=== PATIENT | female | born 1935 | race Caucasian/White ===

== ENCOUNTER → 2017-12-25 14:50 | Outpatient (CLI) | payer MEDICARE, OTHER, SELFPAY ==
[2017-12-25 16:26] LABS: Absolute Lymphocyte Count 1.34 X10^3/ul (0.83-4.51); Absolute Neutrophil Count 3.5 X10^3/uL (2.0-7.7); Basophil# 0.03 X10^3/uL; Basophil% 0.5 % (0-1); Eosinophil# 0.15 X10^3/uL; Eosinophils% 2.7 % (0-5); Hematocrit 43.5 % (37-47); Hemoglobin 14.4 g/dl (12.0-15.0); Lymphocyte # 1.34 X10^3/ul (4.0); Lymphocyte % 23.7 % (19-41); Mean Corp Hgb Conc 33.1 g/gl (32-36); Mean Corpuscular Hgb 32.2 pg (27.0-32.0); Mean Corpuscular Volume 97.3 fL (81-99); Mean Platelet Vol. 9.8 fl (6.2-12.0); Monocyte# 0.66 X10^3/uL; Monocyte% 11.7 % (0-10); Neutrophil # 3.46 X10^3/uL (2.7-7.7); Platelet Count 387 K/mm3 (150-450); RBC Distribution Width CV 14.5 % (11.6-14.6); RBC Distribution Width SD 50.3 fl (35.1-43.9); Red Blood Count 4.47 M/mm3 (4.2-5.4); White Blood Count 5.7 K/mm3 (4.4-11.0)
[2017-12-25 16:27] LABS: POSITIVE COUNT NO; POSITIVE DIFFERENTIAL NO; POSITIVE MORPHOLOGY NO
[2017-12-26 10:20] LABS: Vitamin D,25 Hydroxy 76.6 ng/mL (29.95-100.01)
== END ==
PROVIDERS: Visit Provider Family Medicine Geriatric Medicine
DX: Z00.00 Encounter for general adult medical examination without abnormal findings (principal); I10 Essential (primary) hypertension; E55.9 Vitamin D deficiency, unspecified
CPT/HCPCS: 36415; 80053; 82306; 84443; 85025

== ENCOUNTER 2018-02-06 10:00 | Outpatient (RCR) | payer MEDICARE, OTHER, SELFPAY ==
--- NOTE | 2018-01-09 10:09 | HP.PTEVAL_ITS ---
Patient's Visit Information LEW HUDSON is a 82 year old F referred to Physical Therapy by Suleiman Alfaro with a diagnosis of Myalgia. Date of Evaluation: 01/09/18 Physical Therapist: Zeke Gabriel, PT, - Visit Plan Frequency: 2x /Week Duration: 4-6 Weeks Plan: B UE strengthening (rot cuff), scap stab ex's, overhead pulleys, UBE, HEP , US - Subjective Subjective: Pt reports she has had B UE pain for several years. Pt reports she was taking Lipitor for a month back then when she began to experience this pain. Pt reports she stopped taking the medications, but the pain never went away. Pt reports the pain has become progressively worse over the past few months. Pt is not sure what she would have palacios to make the pain worse. Pt reports she has sig difficulty with trying to lift her arms over her head. Difficulty with doing her hair as well. Pain on the lateral upper humerus is always present, but she does get occasional pain shooting down her arms which is intermittent. Pt reports minor c/s pain this date. Only Ibuprophen helps to take away her pain. 3/10 pain at rest, 7/10 at worst. Pain is bad at night when she is trying to sleep. Pt reports she has to sleep in a chair. - Pain B arm pain Pain Intensity (Out of 10): 3 Pain Intensity Range: 7 - Objective Neuro: B UE sensation is WNL to light touch. B bicepital reflex= 2/3. Palpation : Pt is mostly sore on the ant aspect of B shoulders near the upper portion of the biceps muscle. ROM: R shoulder flex= 108, abd= 85, ER= 35, IR mod limited ; L shoulder flex= 130, abd= 85, ER= 30, IR Mod limited. MMT: B shoulders are grossly 4-/5 throughout in available range of motion. - Goals Goal 1:: Decrease B UE pain x 25% to aid with sleep Goal Time Frame: 4-6 Weeks Goal 2:: Increase B UE flex and abd ROM x 30 degrees to aid with overhead activity Goal Time Frame: 4-6 Weeks Goal 3:: Increase B UE strength x 1 grade to aid with IADL's Goal Time Frame: 4-6 Weeks Goal 4:: I with HEP Goal Time Frame: 4-6 Weeks - Rehabilitation Potential Physical Therapy Diagnosis: Pt has B UE pain, weakness, and limited ROM secondary to deg changes in B shoulders Rehabilitation Potential: Good - Anticipated Interventions Patient/Client Instruction: Educate patient on: Condition, Plan of Care For the Purpose of:: To decrease pain, To increase ROM, To improve muscle performance and motor function Therapeutic Exercise to Include: Strength training, Endurance training, Active ROM, Scapular Strength/Stabilization For the Purpose of:: To decrease pain, To increase ROM, To improve muscle performance and motor function Cryotherapy (ice pack, ice massage): Yes Ultrasound (thermal/non thermal): Yes For the Purpose of:: To decrease pain Thank you for the opportunity to evaluate your patient. For Medicare and Medicare HMO plans, please review the plan of care and approve it. It will need to be FAXED BACK to us at [phone] for Medicare purposes. Please let me know if there are questions or concerns regarding this plan of care. Physician Signature: Date:
--- NOTE | 2018-02-06 10:56 | HP.PTDCSUM ---
HP - PT D/C Summary It has been my pleasure to treat LEW HUDSON under orders from Suleiman Alfaor, for the diagnosis of Myalgia for a total of 9 visit(s). Discharge Date: Please see the following information for a summary of their discharge status. - Subjective Subjective: Pain is less today - Pain B arm pain Pain Intensity (Out of 10): 0 - Overall Improvement % Improvement: 25 - Objective Objective/Function: B shoulder pain ranges from 0-5/10. No sleep diff secondary to pain. ROM: L shoulder flex= 135, abd= 83; R shoulder flex= 105, abd= 82 degrees. MMT: B UE's are grossly 4+/5 throughout in available range. Pt is I with HEP. Rx goals achieved - Goals Goal 1:: Decrease B UE pain x 25% to aid with sleep Goal Progress: Goal Met Goal 2:: Increase B UE flex and abd ROM x 30 degrees to aid with overhead activity Goal Progress: Goal Met Goal 3:: Increase B UE strength x 1 grade to aid with IADL's Goal Progress: Goal Met Goal 4:: I with HEP Goal Progress: Goal Met - Plan Plan: Discharge to HEP - D/C Information If there are questions or concerns regarding this patient's physical therapy, please feel free to call me at [phone]. Thank you for the referral of this patient. Sincerely, Zeke Gabriel, PT,
--- NOTE | 2018-02-06 10:59 | HP.PTDCSUM_ITS ---
HP - PT D/C Summary It has been my pleasure to treat LEW HUDSON under orders from Suleiman Alfaro , for the diagnosis of Myalgia for a total of 9 visit(s). Discharge Date: Please see the following information for a summary of their discharge status. - Subjective Subjective: Pain is less today - Pain B arm pain Pain Intensity (Out of 10): 0 - Overall Improvement % Improvement: 25 - Objective Objective/Function: B shoulder pain ranges from 0-5/10. No sleep diff secondary to pain. ROM: L shoulder flex= 135, abd= 83; R shoulder flex= 105, abd= 82 degrees. MMT: B UE's are grossly 4+/5 throughout in available range. Pt is I with HEP. Rx goals achieved - Goals Goal 1:: Decrease B UE pain x 25% to aid with sleep Goal Progress: Goal Met Goal 2:: Increase B UE flex and abd ROM x 30 degrees to aid with overhead activity Goal Progress: Goal Met Goal 3:: Increase B UE strength x 1 grade to aid with IADL's Goal Progress: Goal Met Goal 4:: I with HEP Goal Progress: Goal Met - Plan Plan: Discharge to HEP - D/C Information If there are questions or concerns regarding this patient's physical therapy, please feel free to call me at [phone]. Thank you for the referral of this patient. Sincerely, Zeke Gabriel, PT,
== END 2018-02-06 12:25 | disposition home or self-care (01) ==
LOC: PT 10:00
PROVIDERS: Family Provider Family Medicine; PCP Family Medicine; Visit Provider Family Medicine
DX: M79.1 Myalgia (principal)
CPT/HCPCS: 97035; 97110; 97162; 97530

== ENCOUNTER → 2018-02-28 11:11 | Outpatient (CLI) | payer MEDICARE, OTHER, SELFPAY ==
[2018-02-28 12:49] LABS: BNP,B-Type NATRIURETIC PEPTIDE 46.5 pg/mL (0-100)
== END ==
PROVIDERS: Family Provider Family Medicine; PCP Family Medicine; Visit Provider Internal Medicine Cardiovascular Disease
DX: R06.02 Shortness of breath (principal)
CPT/HCPCS: 36415; 83880

== ENCOUNTER 2018-04-20 18:03 | Emergency (ER) | payer MEDICARE, OTHER, SELFPAY ==
[2018-04-20 18:04] VITALS: BP 155/79; PULSE 71; RESP 16; TEMP 36.6; O2SAT 99; BMI 25.8
[2018-04-20 18:12] VITALS: PULSE 80; RESP 17; O2SAT 100
--- NOTE | 2018-04-20 18:30 | EKG12_ITS ---
Test Reason : CP Blood Pressure : / mmHG Vent. Rate : 075 BPM Atrial Rate : 075 BPM P-R Int : 138 ms QRS Dur : 088 ms QT Int : 352 ms P-R-T Axes : 062 014 068 degrees QTc Int : 393 ms Normal sinus rhythm Nonspecific ST and T wave abnormality Abnormal ECG Confirmed by ALEX SAUCEDO, IND[place] ([id number]), features editor WILLOW RED ([id number]) on 04/23/2018 11:18:02 AM Referred By: Confirmed By:INDIA JOHNSON MD
--- NOTE | 2018-04-20 18:31 | RAD_ITS ---
STUDY: X-RAY CHEST REASON FOR EXAM: Female, 82 years old. Intermittent heartburn. TECHNIQUE: Frontal and lateral views of the chest. COMPARISON: None. FINDINGS: The lungs are hyperexpanded. There is no demonstrated pleural abnormality. There is borderline cardiomegaly. Normal mediastinum and roni. Normal visualized pulmonary arteries. Normal visualized aortic arch and descending thoracic aorta. There are diffuse degenerative changes of the visualized thoracic spine. 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 There is no demonstrated abnormality of the visualized soft tissue structures of the upper abdomen. RAD/Chest PA and Lateral IMPRESSION: Borderline cardiomegaly with hyperexpansion. No acute abnormality. Electronically Signed: Tu Montana MD at 19:53 EDT , Service support ,
[2018-04-20 18:59] LABS: Absolute Lymphocyte Count 1.09 X10^3/ul (0.83-4.51); Absolute Neutrophil Count 3.5 X10^3/uL (2.0-7.7); Basophil# 0.02 X10^3/uL; Basophil% 0.4 % (0-1); Eosinophil# 0.18 X10^3/uL; Eosinophils% 3.3 % (0-5); Hematocrit 40.9 % (37-47); Hemoglobin 13.6 g/dl (12.0-15.0); Lymphocyte # 1.09 X10^3/ul (4.0); Mean Corp Hgb Conc 33.3 g/gl (32-36); Mean Corpuscular Hgb 32.4 pg (27.0-32.0); Mean Corpuscular Volume 97.4 fL (81-99); Mean Platelet Vol. 9.2 fl (6.2-12.0); Monocyte# 0.63 X10^3/uL; Monocyte% 11.6 % (0-10); Neutrophil # 3.52 X10^3/uL (2.7-7.7); Neutrophil % 64.5 % (47-70); Platelet Count 427 K/mm3 (150-450); RBC Distribution Width CV 14.5 % (11.6-14.6); RBC Distribution Width SD 49.9 fl (35.1-43.9); White Blood Count 5.5 K/mm3 (4.4-11.0)
[2018-04-20 19:01] LABS: POSITIVE COUNT NO; POSITIVE DIFFERENTIAL NO; POSITIVE MORPHOLOGY NO
[2018-04-20 19:13] LABS: Anion Gap 7 (5-15); BUN 14 mg/dL (7-18); BUN/Creat Ratio 24.1 RATIO (10-20); Calcium,Total 9.2 mg/dL (8.5-10.1); Chloride 105 mmol/L (98-107); Creatinine, Serum 0.58 mg/dL (0.55-1.02); EST Glomerular Filtration Rate 105 mL/min (>60); Est Glom Filt Rate - Afr Amer 127 mL/min (>60); Estimated Creatinine Clearance 35.88 ml/min; Glucose 114 mg/dL (74-106); Sodium Level 138 mmol/L (136-145)
--- NOTE | 2018-04-20 20:32 | ED.DCSUM_ITS ---
- ER Visit Summary Date of Service: 04/20/18 Chief Complaint: Heartburn History of Present Illness: The patient is a 82 F who presents with heartburn. She does have a history of a hiatal hernia. She has had prior similar symptoms. She is to be on a proton pump inhibitor but was told due to side effects to discontinue this. Over the last month she has been having intermittent heartburn. She describes a burning sensation in her lower chest. This is relieved with eating, Tums, or Zantac. However today was worse. She states she had seen a flyer about women and chest pain and became somewhat concerned so presented here. However her symptoms have actually since resolved and currently she has no pain. She reports nausea but no vomiting. No difficulty breathing or sweats. Physical Examination: Afebrile vitals unremarkable Moist mucous membranes Heart regular rate and rhythm Lungs are clear Abdomen soft Alert Normal affect Test Results: EKG shows normal sinus rhythm at a rate of 75. CBC BMP troponin all normal. Chest x-ray shows borderline cardiomegaly. Emergency Department Course and Treatment: Patient's workup is unremarkable. I do believe this is most likely related to her hiatal hernia and gastroesophageal reflux. We will start her on Prilosec. She was advised to follow-up with her primary care physician. She understands to return for new or worsening symptoms. She was discharged. Treatment Plan: [] Disposition: Discharge Impression: Gastroesophageal reflux This note was generated with [employer] dictation software. It may contain incorrect words, spelling, and punctuation that were not noted in review of the chart prior to signing ED Disposition - Plan for ED Patient: Chief Complaint: Abd Pain Referrals: Nathan Vanegas DO [Primary Care Provider] -
--- NOTE | 2018-04-20 20:32 | ED.DEP ---
ED Disposition - Plan for ED Patient: Chief Complaint: Abd Pain Instructions: ED GERD Prescriptions: Omeprazole [Prilosec] 20 mg PO DAILY #30 cap Referrals: Nathan Vanegas DO [Primary Care Provider] -
[2018-04-20 20:48] VITALS: BP 122/75; PULSE 74; RESP 17; O2SAT 98
--- NOTE | 2018-04-20 20:49 | ED.RN ---
pt given written and verbal discharge instructions and verbalizes understanding. pt denies any further questions. pt to follow up dr. cruz. iv d/c and covered with 2x2 gauze and paper tape. pt dresses self and ambulates out of dept with spouse.
== END 2018-04-20 20:53 | disposition home or self-care (01) ==
PROVIDERS: Emergency Provider Emergency Medicine; Family Provider Family Medicine; PCP Family Medicine
DX: K21.9 Gastro-esophageal reflux disease without esophagitis (principal); K44.9 Diaphragmatic hernia without obstruction or gangrene; M81.0 Age-related osteoporosis without current pathological fracture; Z79.899 Other long term (current) drug therapy
CPT/HCPCS: 71046; 80048; 84484; 85025; 93005; 99284; A4216

== ENCOUNTER → 2018-07-18 16:01 | Outpatient (CLI) | payer MEDICARE, OTHER, SELFPAY ==
--- NOTE | 2018-07-18 16:24 | VDLE_ITS ---
Reason For Study: LEG PAIN RIGHT LEFT CFV is compressible, spontaneous, phasic, GSV is normal. competent and demonstrates normal CFV is compressible, spontaneous, phasic, augmentation. competent, and demonstrates normal Procedure augmentation. Exam performed in department. FV is compressible, spontaneous, phasic, A preliminary report was called and/or faxed competent and demonstrates normal to Dr. Ibarra. augmentation. POP V is compressible, spontaneous, phasic, competent and demonstrates normal augmentation. T/P Trunk is compressible. PTV is compressible. LT PerV is compressible. Interpretation Summary Deep veins of the left lower extremity are patent and compressible segmentally. There is no evidence of left lower extremity deep vein thrombosis. Valvular competence appears intact within the proximal deep venous system on the left . The left greater saphenous vein appears patent and compressible segmentally. Ordering Physician: RENEE IBARRA Referring Physician: Nathan Vanegas Performed By: Melissa Arango RVT
--- OUTSIDE RECORDS SUMMARY | 2018-09-22 11:34 | XMS RPT_ITS ---
:1935 Author Organization OHIP Support Name Relationship Address Phone REINALDO HUDSON Unavailable [address] + [place] [address] R Unavailable Unavailable Unavailable KICK, REINALDO Unavailable [address] + [place] [address] R Unavailable Unavailable Unavailable KICK, REINALDO Unavailable Unavailable + KIVIOLETA REINALDO Unavailable Unavailable + KIVIOLETA REINALDO Unavailable [address] + [place] [address] KICK, REINALDO Unavailable [address] + [place] [address] KICK, REINALDO Unavailable [address] + [place] [address] R Unavailable Unavailable Unavailable KICK, REINALDO Unavailable [address] + [place] [address] R Unavailable Unavailable Unavailable KICK, REINALDO Unavailable [address] + [place] [address] R Unavailable Unavailable Unavailable KICK, REINALDO Unavailable [address] + [place] [address] R Unavailable Unavailable Unavailable KICK, REINALDO Unavailable [address] + [place] [address] R Unavailable Unavailable Unavailable KICK, REINALDO Unavailable [address] + [place] [address] R Unavailable Unavailable Unavailable KICK, REINALDO Unavailable [address] + [place] [address] KICK, REINALDO Unavailable [address] + [place] [address] KICK, REINALDO Unavailable [address] + [place] [address] R Unavailable Unavailable Unavailable KICK, REINALDO Unavailable [address] + [place] [address] KICK, REINALDO Unavailable [address] + [place] [address] KICK, REINALDO Unavailable [address] + [place] [address] KICK, REINALDO Unavailable [address] + [place] [address] KICK, REINALDO Unavailable [address] + [place] [address] KICK, REINALDO Unavailable [address] + [place] [address] KICK, REINALDO Unavailable [address] + [place] [address] KICK, REINALOD Unavailable [address] + [place] [address] KICK, REINALDO Unavailable [address] + [place] [address] KICK, REINALDO Unavailable [address] + [place] [address] Care Team Providers Name Role Phone BRODERICK COSTA CNPANNE Attending Unavailable MADAI BONDS MD Primary Care Unavailable MADAI BONDS MD Attending Unavailable MADAI BONDS MD Primary Care Unavailable MADAI BONDS MD Attending Unavailable MADAI BONDS MD Primary Care Unavailable MADAI BONDS MD Attending Unavailable MADAI BONDS MD Primary Care Unavailable MADAI BONDS MD Attending Unavailable MADAI BONDS MD Primary Care Unavailable MADAI BONDS MD Attending Unavailable MADAI BONDS MD Primary Care Unavailable DR. CODY VANEGAS DO Attending Unavailable DR. CODY VANEGAS DO Primary Care Unavailable MARITZA MACIAS Referring Unavailable MARITZA MACIAS Attending Unavailable COLLEEN, LAPMAN Referring Unavailable COLLEEN, CORRINEMAN Referring Unavailable COLLEEN, CORRINEMAN Referring Unavailable COLLEEN, MARITZA Referring Unavailable SURJIT ROBERTS Referring Unavailable RENEE IBARRA Attending Unavailable RENEE IBARRA Referring Unavailable Cody Vanegas Primary Care Unavailable Jose Carlos Jacobs Chi Attending Unavailable Madai Bonds Attending Unavailable Madai Bonds Referring Unavailable Madai Bonds Primary Care Unavailable Rach Rome Attending Unavailable Osvaldo Fischer Attending Unavailable Madai Bonds Referring Unavailable Osvaldo Fischer Attending Unavailable Madai Bonds Referring Unavailable Madai Bonds Primary Care Unavailable Amado, [place] Attending Unavailable Amado, Osvaldo Referring Unavailable Guilherme, Cody Primary Care Unavailable Guilherme, Cody Primary Care Unavailable Chris Matute Attending Unavailable FRED, RENEE Attending Unavailable FRED, RENEE Referring Unavailable Guilherme, Cody Primary Care Unavailable Fred, Renee L Attending Unavailable Fred, Renee L Attending Unavailable PROBLEMS PROBLEMS DATE TYPE CONDITION / CODE ATTENDING STATUS SOURCE 06/19/2018 Admitting Unknown / Fred, Active [facility] Medical diagnosis UNK(Unknown) Renee Funes [facility] Repository 02/27/2018 Unknown I31.3 - Pericardial Amado, Osvaldo Active [facility] effusion [facility] (noninflammatory) / Hospital I31.3(ICD-10) Repository 02/27/2018 Unknown 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[place], [place]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 / Hospital I36.1(ICD-10) Repository 02/27/2018 Unknown E78.5 - Amado, Osvaldo Active [facility] Hyperlipidemia, Community unspecified / Hospital E78.5(ICD-10) Repository 02/27/2018 Unknown 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 No need to notify patient. Patient phones requesting refills as follows: Pending Prescriptions Disp Refills HYDROXYUREA 500 MG CAPSULE 30 capsule 2 Sig: Take 1 capsule by mouth every 48 hours. YADIRA: No Please review and advise. Alice Zarate Psr Maritza Macias MD 07/22/2018 10:05 AM Signed Patient's request for medication is as follows Signed Prescriptions Disp Refills hydroxyurea (HYDREA) 500 mg capsule 30 capsule 2 Sig: Take 1 capsule by mouth every 48 hours. YADIRA: No Authorizing Provider: MARITZA MACIAS Order entered - please phone pharmacy and notify patient. Maritza Macias MD Allergies As of Date: 07/22/2018 Noted Allergy Reaction CIPROFLOXACIN 08/29/2010 2 - Rash Comments: Itching and rash AMOXICILLIN 07/07/2008 8 - GI Upset BIAXIN (CLARITHROMYCIN) 06/07/2009 8 - GI Upset SODIUM PENTATHAL (THIOPENTAL) 08/29/2010 8 - GI Upset Comments: Heavy vomiting Date Reviewed: 09/05/2017 Reviewed by: Shira Calles - Fully Assessed Reason for Visit: Refill Request [94] Order(s):hydroxyurea (HYDREA) 500 mg capsuleTake 1 capsule by mouth every 48 hours.Disp: 30 capsuleRfl: 2 Prescriptions as of 07/22/2018 Sig: HYDROXYUREA 500 MG CAPSULE Take 1 capsule by mouth every* BETAMETHASONE DIPROPIONATE 0.* Apply 1 application to affect* METOPROLOL SUCCINATE ER 25 MG* Take 1/2 tablet by mouth once* GUMMI BEAR MULTIVITAMIN ORAL Take 1 Each by mouth twice da* MAGNESIUM OXIDE 500 MG TABLET Take 500 mg by mouth once marie* COENZYME Q10 10 MG CAPSULE Take by mouth twice daily. FIBER SELECT GUMMIES ORAL Take 2 capsules by mouth once* DOCUSATE SODIUM 100 MG CAPSULE Take 100 mg by mouth three ti* OXYGEN-AIR DELIVERY SYSTEMS M* 2 L at bedtime as needed. MOMETASONE 0.1 % TOPICAL CREAM Apply to itching eczema derma* DESONIDE 0.05 % TOPICAL OINTM* Apply to affected area(s) thr* ERGOCALCIFEROL (VITAMIN D2) 5* Take one capsule every two we* CLOBETASOL 0.05 % SCALP SOLUT* Apply to active spots of itch* CITRACAL ORAL Take 4 tablets by mouth once * RECLAST INTRAVENOUS Inject intravenously. Yearly* CHOLECALCIFEROL (VITAMIN D3) * Take 1,000 Units by mouth onc* MUPIROCIN 2 % TOPICAL OINTMENT Apply to wound and/or infecte* * PROAIR HFA 90 MCG/ACTUATION A* Inhale 2 Puffs as instructed * * AQUAPHOR TOPICAL Apply to affected area. as n* * POLYSPORIN TOPICAL Apply to affected area. as n* * PRESERVISION AREDS 7,160 UNIT* Take two tablets daily. * FLUTICASONE 50 MCG/ACTUATION * Two sprays in each nostril tw* Problem List As Of Date 07/22/2018 Noted Resolved LICHEN SCLEROSIS///CIRCUMSCRIBE SCLERODERMA [L9*INVALID FOR* Scar condition and fibrosis of skin [L90.5] INVALID FOR*11/10/2012 Dyschromia, unspecified [L81.9] INVALID FOR*11/03/2011 Seborrheic Keratosis [L82.1] INVALID FOR* ACTINIC DAMAGE///CHR SOLAR SKIN DAMAGE NOS [L57*INVALID FOR*11/03/2011 SOLAR LENTIGINES///DYSCHROMIA OTHER [L81.9] INVALID FOR*11/03/2011 Neoplasm of uncertain behavior of skin [D48.5] INVALID FOR*11/03/2011 Other and unspecified malignant neoplasm of ski*INVALID FOR*11/10/2012 BCC (Basal Cell Carcinoma), Face [C44.310] INVALID FOR* Open wound site NOS [T14.8XXA] INVALID FOR*11/03/2011 H/O Malignant Neoplasm of Skin: L cheek face: B*INVALID FOR* Foreign Body Granuloma of Skin: Acne type [L92.*INVALID FOR* 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 FOR* Skin tags INVALID FOR*11/10/2012 Melanocytic nevus of trunk: occasional intrader*INVALID FOR* Vernon angiomas [D18.01] INVALID FOR* Actinic Keratosis: Premalignant AK [L57.0] INVALID FOR* Irritated//Inflamed Seborrheic Keratosis [L82.0]INVALID FOR* Eczematous dermatitis [L30.9] INVALID FOR* Pseudofolliculitis [L73.8] INVALID FOR* Lichenified eczema [L28.0] INVALID FOR* Surgical Scars [L90.5] INVALID FOR* Solar Lentigines [L81.4] INVALID FOR* Actinic skin damage [L57.8] INVALID FOR* Xerosis cutis [L85.3] INVALID FOR* 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] INVALID FOR* 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] INVALID FOR* Lichen sclerosus et atrophicus of the vulva [N9*INVALID FOR* Neurodermatitis [L28.0] INVALID FOR* Skin tag [L91.8] INVALID FOR* Folliculitis [L73.9] INVALID FOR* Excoriation [T14.8XXA] INVALID FOR* Pyoderma, unspecified [L08.0] INVALID FOR* 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] INVALID FOR* Open wound of unspecified site (L mid ant lower*INVALID FOR* 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 Medications Discontinued During This Encounter hydroxyurea (HYDREA) 500 mg capsule 30 c* 2 01/15/2018 07/22/2018 Route: ORAL Sig: Take 1 capsule by mouth every 48 hours. Disc: Reason for discontinue is not on file. Encounter Status:Closed by NEVIN ISAAC on 07/22/18 VENOUS DUPLEX LOWER Observed: 07/18/2018 Status: F Source: [place] EXTREMITY 6:48 PM [facility] REPOSITORY [facility] Cardiovascular Services [address] [address] Venous Duplex US, Unilateral 07/18/18 1625 MR#: [id number] Acct: [id number] Name: KELLIE HUDSON Rep #: [id number] : 1935 82 From: Michael Minaya MD Attending Dr: RENEE IBARRA Status: REG CLI Ordering Dr: RENEE IBARRA DO Date: 07/18/18 Location: [facility] Sex: F C Admitted: Reason For Study: LEG PAIN RIGHT LEFT CFV is compressible, spontaneous, phasic, GSV is normal. competent and demonstrates normal CFV is compressible, spontaneous, phasic, augmentation. competent, and demonstrates normal Procedure augmentation. Exam performed in department. FV is compressible, spontaneous, phasic, A preliminary report was called and/or faxed competent and demonstrates normal to Dr. Ibarra. augmentation. POP V is compressible, spontaneous, phasic, competent and demonstrates normal augmentation. T/P Trunk is compressible. PTV is compressible. LT PerV is compressible. Interpretation Summary Deep veins of the left lower extremity are patent and compressible segmentally. There is no evidence of left lower extremity deep vein thrombosis. Valvular competence appears intact within the proximal deep venous system on the left . The left greater saphenous vein appears patent and compressible segmentally. Ordering Physician: RENEE IBARRA Referring Physician: Cody Vanegas Performed By: Melissa Arango RVT 07/18/18 1848 Date Michael Minaya MD CC: RENEE IBARRA; Cody Vanegas Date Dictated: 07/18/18 1625 Date Transcribed: 07/18/18 1848 [place]: Signed INITAL EVALUATION (1) Observed: 06/26/2018 Status: F Source: [place] - PT 1:41 PM [facility] REPOSITORY [facility] [address] [place] [address]. [address] [place] [address] / REHABILITATION SERVICES INITIAL EVALUATION MR#: [id number] Acct: [id number] Name: KELLIE HUDSON Rep #: [id number] : 1935 82 From: Suzi Snow DPT Referring Dr.: RENEE IBARRA Status: REG RCR Insurance: MEDICARE PART A B COMMERCIAL OTHER Patient's Visit Information KELLIE HUDSON is a 82 year old F referred to Physical Therapy by RENEE IBARRA DO with a diagnosis of Left TKR. 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 Ibarra- came to PT initally last week and returned to the MD secondary to redness and bleeding through the bandages. Today she is in the clinic with her - wheeled back in a w/c. They live in a single story handicapped accessible home. She reports being fully I before surgery and that is her goal. Pain is bad when she stands on it 10/10 and sharp shooting but only a 5-6/10 when she is sitting. She is going back to the MD today for more pain medication and another bandage change. PMHx/Meds: in chart - Objective Posture: Fh, RS, Increased kyphosis. Gait: FWW- antalgic- decreased stance on LE- poor heel/toe. SLS: WS but painful. HR/TR: able sitting. ROM: 20-82 degrees. Strength: Ankle: 4+/5, Knee: 3+/5, Hip: 4-/5 throughout - Goals Goal 1:: Patient will be I with HEP and progression Goal Time Frame: 4-6 Weeks Goal 2:: Patient will demo 0-120 degrees of ROM Goal 3:: Patient will ambulate >300 feet with LRD and normalized gait pattern Goal Time Frame: 4-6 Weeks Goal 4:: Patient will asc/desc 8 recip with 1 HR Goal Time Frame: 4-6 Weeks - Rehabilitation Potential Physical Therapy Diagnosis: Patient presents with hypomobility- she has decreased ROM, strength and muscular endurance s/p TKR Rehabilitation Potential: Fair - Anticipated Interventions Patient/Client Instruction: Educate patient on: Benefits of Fitness Program Therapeutic Exercise to Include: Strength training, Endurance training, Balance training, Agility training, Body mechanics, Postural training, Flexibilty training, Gait and locomotor training, Passive ROM, Active ROM, Scapular Strength/Stabilization For the Purpose of:: To improve muscle performance and motor function TENS: Yes Cryotherapy (ice pack, ice massage): Yes Thermo therapy (hot pack): Yes Ultrasound (thermal/non thermal): No Thank you for the opportunity to evaluate your patient. For Medicare and Medicare HMO plans, please review the plan of care and approve it. It will need to be FAXED BACK to us at [phone] for Medicare purposes. For Medicare only, by signing this I certify the plan of care. Please let me know if there are questions or concerns regarding this plan of care. Physician Signature: Date: <Electronically signed by Suzi Snow DPT> 06/26/18 1341 CC: RENEE Vanegas DO ELR Signed PROG.ORTHO Observed: 06/20/2018 Status: UNK Source: [facility] 12:01 PM [facility] Patient Name: KELLIE HUDSON [address] [employer] Date of : [address] [place] [address] Unit Number: [id number] Progress Note-Ortho Patient Status: REG [facility] Attending Doctor: Renee Ibarra DO Service Date: 06/20/181200 Progress Note - Ortho Subjective S: (2 ROS minimum) Patient is postop day 1 from left total knee arthroplasty she is resting in her chair. Reports some pain that has started to grow over the last couple hours. No new issues or complaints from the night. Objective Nursing Vitals Vital Signs (Last) Result Date Time Pulse Ox 97 06/20 730 B/P 108/58 06/20 730 Temp 97.9 06/20 730 Pulse 70 06/20 730 Resp 18 06/20 730 O2 Delivery NASAL CANNULA 06/20 315 O2 Flow Rate 2 06/20 315 Physical Exam Left lower extremity -Skin/dressing: Bandage is moderately saturated at distal third. No excessive erythema or unexpected drainage noted -Calf is nontender to palpation -Dorsiflexion and plantarflexion 11/03 Diagnostic Data Lab 24hr (CBC/BMP [facility]) 06/20/18 0508: [Embedded Image Not Available] Anion Gap 5, Est GFR ( Amer) Greater than 60, Est GFR (Non-Af Amer) Greater than 60 , BUN/Creatinine Ratio 15, Glucose 132 H, Total Calcium 8.0 L, Iron 36 L, TIBC 266, Iron Saturation 14 L, Ferritin 97.2, RBC 3.20 L, MCV 95.9, MCHC 33.9, RDW 14.0, MPV 9.4, Nucleated RBCs 0.0 Assessment/Plan Conclusion 1. Arthritis Patient is doing well for this stage postop She is to start physical therapy outpatient tomorrow DVT prophylaxis Postop prescriptions given May change dressing after 7 days. She needs to continue with dry sterile bandage until she returns the office Patient is to follow-up in 3 weeks with il Patient to be discharged home today Stable Problems Problems not specifically addressed in the above plan are stable and do not warrant adjustment of the current method of therapy. Disclaimer This dictation was created using voice recognition software. Phonetic and/or minor grammatical errors may exist. eSign Date and Time Mary Jane Vigil PAC Verified/Reviewed by 06/20/181205 Renee Ibarra DO OTDS Observed: 06/20/2018 Status: UNK Source: [facility] 8:17 AM [facility] Occupational Therapy Inpatient Last Visit Note The inpatient Occupational Therapy care is discontinued at this time for the following reasons: Discharge from hospital. Goals Met. FOR HOMEGOING W/ AND 24 HOUR CARE AM-PAC Daily Activities: Putting On/Taking Off Lower Body Clothing: A little help needed Bathing:: A little help needed Toileting: A little help needed Putting On/Taking Off Upper Body Clothing: A little help needed Grooming: A little help needed Eating a Meal: No help needed Raw Score = 19 , AM-PAC t-Scale Score = 40.22 and G-Code Modifier = CK Interventions: Self Care/Home Management: TRANSFERS, BATHING, ADAPTIVE DRESSING, FAMILY INSTRUCT / SAFETY W/ Therapeutic Activities: STANDING BALANCE, REACHING OUT OF PAULO W. STANDING ADLS, WW SAFETY, FALL PREVENTION SAFETY Education: Education Provided: Plan of care. Safety issues and interventions. Fall protocol. Supervision requirements. Use of adaptive devices. Activities of daily living. Functional transfers. Home exercise/activity plan. Audience: Patient. Mode: Explanation. Demonstration. Response: Verbalized understanding. Verbalized understanding. Recommendations: Upon acute care discharge, the following is currently recommended: Home exercise program. Activity/Participation Problem List and Goals: No updates at this time. Treatment Goals: TREATMENT GOAL REVIEW: 1. Pt supv self care tasks w/good use of AE/techs as needed - Met 2. Pt supv bed mobility and functional transfers w/no v/c for safety - Met 3. Pt supv household distance functional mobility and min challenging standing balance tasks - Met Time frame to achieve treatment goal(s): 3-5 days If there are any questions regarding this service, please contact the Acute Therapy Department at extension [phone] Services: Total Billed: 60 minutes (Timed: 60, Untimed: 0) [facility] PATIENT NAME: KELLIE HUDSON [address] [place] MEDICAL REC #: [id number] [place] [address] ADMIT DATE: SERVICE DATE: 06/20/18 Occup. Therapy Discharge Summary ATTENDING SHIRLEY: Renee Ibarra DO 45.00 Timed: [40254] ADL-HOME MANAGEMENT EA 15 MIN 15.00 Timed: [32140] THER ACTIVITIES / 15 MIN 0.00 Untimed: [] OT Treatment General ORDER Signed by: LIN LANIER/Marin 06/20/2018 09:54:05 - CoSigned By: SYLWIA KISER/L 06/20/2018 10:27:42 AM [facility] PATIENT NAME: KELLIE HUDSON [address] [place] MEDICAL REC #: [id number] [place] [address] ADMIT DATE: SERVICE DATE: 06/20/18 Occup. Therapy Discharge Summary ATTENDING PHY: Renee Ibarra DO PTDS Observed: 06/20/2018 Status: UNK Source: [facility] 8:13 AM [facility] Physical Therapy Inpatient Last Visit Note The inpatient Physical Therapy services are discontinued at this time for the following reasons: Goals Met. SHOP ROUTER has assisted with documenting discharge plan and recommendations under the direction of supervising therapist. Therapist's co-signature denotes agreement with planned discharge from acute physical therapy. AM-PAC Basic Mobility: Turning Over in Bed: No difficulty Sitting/Standing Chair with Arms: A little difficulty Lying on Back to Sitting on Side of Bed: A little difficulty Moving To/From Bed to Chair: A little help needed Walking in Hospital Room: A little help needed Climbing 3-5 Steps with Railing: A little help needed Raw Score = 19 , AM-PAC t-Scale Score = 45.44 and G-Code Modifier = CK Interventions: Gait Training: Transfer training:sit<->stand MOD-I. Good static sitting and standing balance. Car tx:verbal education w/ pt and . voiced comfort. Gait training:amb. 100' w/ ww and Supervision w/ good balance in busy hallway and w/ step through pattern. Steps:none at home. Thex:reviewed supine AP,QS,GS . Educated pt on seated AP,LAQ,Marching and HS all AROM w/ pt performing reps of same. Issued written HEP as well as thex progression. PT education:home safety, walker safety, ice bag usage (issued new one). Pt voiced understanding to all and is cleared for home from PT standpoint. Education: Education Provided: Precautions. Bed mobility. Functional transfers. Car transfers. Safety. Home exercise/activity plan. Audience: Patient and significant other. Mode: Explanation. Demonstration. Printed material provided. Response: Verbalized understanding. Demonstrated skill. Recommendations: Upon acute care discharge, the following is currently recommended: Outpatient Physical Therapy. Activity/Participation Problem List and Goals: No updates at this time. Treatment Goals: Time frame to achieve treatment goal(s): 2 weeks 1. Complete 80 feet supv ww MET 2. Complete transfers supv MET 3. Complete dynamic standing balance x 20 seconds supv MET (stood at walker to fix her clothing, good balance). Discharge Plan: The patient's status and plan was discussed with patient and agreed upon. [facility] PATIENT NAME: KELLIE HUDSON [address] [place] MEDICAL REC #: [id number] [place] [address] ADMIT DATE: SERVICE DATE: 06/20/18 Physical Therapy Discharge Summary ATTENDING SHIRLEY: Renee Ibarra DO If there are any questions regarding this service, please contact the Acute Therapy Department at extension [phone] Services: Total Billed: 28 minutes (Timed: 28, Untimed: 0) 28.00 Timed: [29903] GAIT TRAIN EA 15 MIN 0.00 Untimed: [] PT Treatment- General ORDER Signed by: LALO SHARMA PTA 06/20/2018 10:52:26 - CoSigned By: Kriss Rodrigues 06/20/2018 11:28:18 AM [facility] PATIENT NAME: KELLIE HUDSON [address] [place] MEDICAL REC #: [id number] [place] [address] ADMIT DATE: SERVICE DATE: 06/20/18 Physical Therapy Discharge Summary ATTENDING PHY: Renee Ibarra DO CBC Collected: 06/20/2018 Status: F Source: [facility] 5:08 AM [facility] REPOSITORY Order Comment: [place]: M TYPE CODE TESTS RESULT OUT OF RANGE REFERENCE UNITS LAB L200.82841 4.5-11.0 K/CUMM Normal WBC 8.8 LAB L200.62862 3.90-5.30 M/CU MM Low RBC 3.20 LAB L200.29523 11.5-15.5 G/DL Low HGB 10.4 LAB L200.28292 35.0-47.0 % Low HCT 30.7 LAB L200.58601 80.0-99.0 fl Normal MCV 95.9 LAB L200.33826 32.0-36.0 GM/DL Normal MCHC 33.9 LAB L200.00617 11-14.5 Normal RDW 14.0 LAB L200.19177 9.4-12.4 Normal MPV 9.4 LAB L200.16792 150-450 K/CU MM Normal PLT 315 LAB L200.09191 Less than 1 % Normal NRBC 0.0 Performed By: #### L200.37752 #### [facility] [address] [place] [address] BMP Collected: 06/20/2018 Status: F Source: [facility] 5:08 AM [facility] REPOSITORY Order Comment: [place]: M TYPE CODE TESTS RESULT OUT OF RANGE REFERENCE UNITS LAB L500.66664 136-145 MMOL/L Normal NA 137 LAB L500.99095 3.5-5.1 MMOL/L Normal K 4.2 LAB L500.92669 98-107 MMOL/L Normal CL 106 LAB L500.69302 21-32 MMOL/L Normal CO2 26 LAB L500.20855 5-16 MMOL/L Normal AGAP 5 LAB L500.43701 70-100 MG/DL High GLU 132 Result Comment: 70-100- Normal Fasting; 100-125 Impaired Fasting; greater than 126 on more than one result- Diabetes. ADA guidelines. Results may be falsely elevated after the administration of Sulfapyridine. Results may be falsely depressed after the administration of Sulfasalazine. LAB L500.68051 7-26 MG/DL Normal BUN 9 LAB L500.74723 0.510-0.950 MG/DL Normal CREAT 0.623 Result Comment: Patients receiving either N-Acetylcysteine (NAC) or Metamizole prior to venipuncture, may have falsely depressed results. LAB L500.46763 15-24 Normal BUN/CREA 15 LAB L500.67701 8.5-10.1 MG/DL Low CALCIUM TOTAL 8.0 Performed By: #### L500.08854, L500.97960, L500.47761, L500.99985 #### [facility] [address] [place] [address] GFR EST Collected: 06/20/2018 Status: F Source: [facility] 5:08 AM [facility] REPOSITORY Order Comment: [place]: TYPE CODE TESTS RESULT OUT OF RANGE REFERENCE UNITS LAB L500.90854 ML/MIN Normal IF non-AFR Greater than AMER 60 LAB L500.47029 ML/MIN Normal IF Greater than AMER 60 Performed By: #### L500.13188, L500.62571, L500.96310, L500.32096 #### [facility] [address] [place] [address] IRON PANEL Collected: 06/20/2018 Status: F Source: [facility] 5:08 AM [facility] REPOSITORY Order Comment: [place]: M TYPE CODE TESTS RESULT OUT OF RANGE REFERENCE UNITS LAB L500.29426 50-170 UG/DL Low IRON 36 Result Comment: Patients treated with metal-binding drugs (e.g.deferoxamine) may have depressed iron values, as chelated iron may not properly react in the Siemens iron assay. LAB L500.88422 221-481 UG/DL Normal TIBC 266 LAB L500.29871 22-44 % Low IRON SAT 14 Performed By: #### L500.22384, L500.76508, L500.79896, L500.06891 #### [facility] [address] [place] [address] FERR Collected: 06/20/2018 Status: F Source: [facility] 5:08 AM [facility] REPOSITORY Order Comment: [place]: TYPE CODE TESTS RESULT OUT OF RANGE REFERENCE UNITS LAB L500.72253 8.0-307.0 NG/ML Normal FERR 97.2 Performed By: #### L500.65961, L500.64618, L500.20204, L500.26204 #### [facility] [address] [place] [address] OTAR Observed: 06/19/2018 Status: UNK Source: [facility] 4:45 PM [facility] REPOSITORY Occupational Therapy Inpatient Evaluation Medical Diagnosis: s/p Left TKA performed by dr. 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 Functional Cognition: Patient completed the activities by him/herself, with or without an assistive device, with no assistance from a helper. Denies use of AD. Denies falls. Indep with ADL. Share cooking and cleaning Patient/Caregiver Goals: Patient's functional goals: To go home Pain: Patient currently has pain. Location: Knee pain Type: Acute Quality: Aching. Pain Scale: Visual Analog (VAS). Patient reports a pain level of 6 out of 10. Patient's acceptable level of pain 0 out of 10. Pain does not interfere with any activity at this time. [facility] PATIENT NAME: KELLIE HUDSON [address] [facility] [address] [place] MEDICAL REC #: [id number] [place] [address] ADMIT DATE: SERVICE DATE: 06/19/18 Occupational Therapy Assessment ATTENDING GUERAY: Renee Ibarra DO Pain is alleviated by: Pain mediations Pain is exacerbated by: movement Interventions: Repositioned patient. Home Environment: Patient lives with whom is able to assist PRN , who is able to assist patient at discharge. Patient lives in a condominium. Home is single level. Patient is not required to manage stairs within the home. First floor full bathroom setup available. No stairs to enter the home. There is no ramp available to enter home. 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 Social History: Marital Status: Children: It is unknown whether patient has children Employment Status: Retired Recreational Activities/Hobbies: shopping OBJECTIVE/OCCUPATIONAL PERFORMANCE Activities of Daily Living Current Status Previous Status ADLs Feeding Independent - Grooming Modified independent - Bathing-UE Supervision - Bathing-LE Minimal assistance - Dressing-UE Supervision - Dressing-LE Minimal assistance - Toileting Minimal assistance - AM-PAC Daily Activities: Putting On/Taking Off Lower Body Clothing: A little help needed Bathing:: A little help needed Toileting: A little help needed Putting On/Taking Off Upper Body Clothing: A little help needed Grooming: No help needed Eating a Meal: No help needed Raw Score = 20 , AM-PAC t-Scale Score = 42.03 and G-Code Modifier = CJ Functional Mobility: Bed Mobility: Not assessed. Transfers: Patient transferred sit to/from stand requiring contact guard assistance of 1 person. Patient transferred to/from the toilet requiring contact guard assistance of 1 person. Locomotion/Gait/Ambulation: Patient was contact guard with gait/ambulation of 1 person for 15' x 2 . Patient requires the following assistive device(s): Rolling walker. pt demo fair gait, decreased step length, [facility] PATIENT NAME: KELLIE HUDSON [address] [facility] [address] [place] MEDICAL REC #: [id number] [place] [address] ADMIT DATE: SERVICE DATE: 06/19/18 Occupational Therapy Assessment ATTENDING PHY: Renee Ibarra DO CGA for steadying Range of Motion Upper Extremity: Grossly within functional limits Strength Upper Extremity: Grossly within functional limits Balance: Dynamic balance in a seated position is good. Dynamic balance in a standing position is good. good- w/use of ww and CGA Tone/Spasticity: No relevant impairments. Sensation: Grossly intact. Fine Motor Coordination: Fine motor coordination was not assessed. Gross Motor Coordination: Upper extremity gross motor coordination is intact. Edema: Edema is present. Location: Left lower extremity edema- Minimal. Location: Lower Extremity Function: See PT Vision: No impairments noted. Cognition: Within functional limits. Perceptual Skills: Within functional limits. Psychosocial: Within normal limits Interventions: Evaluation LOW Complexity No treatment provided today. Pain Reassessment: No significant change in pain during session. Education: The patient's preferred learning method is: Explanation, Demonstration Barriers to Learning: No barriers Learning Needs: Precautions. Plan of care. Rehabilitation techniques and procedures. Safety. Functional activities/mobility. Equipment. Education Provided: Precautions. Plan of care. Activities of daily living. Bed mobility. Functional transfers. Equipment. Safety. Audience: Patient. Mode: Explanation. Demonstration. Response: Verbalized understanding. Demonstrated skill. ASSESSMENT [facility] PATIENT NAME: KELLIE HUDSON [address] [facility] [address] [place] MEDICAL REC #: [id number] [place] [address] ADMIT DATE: SERVICE DATE: 06/19/18 Occupational Therapy Assessment ATTENDING PHY: Renee Ibarra DO Clinical Performance Deficits: Impaired ADLs, Impaired instrumental ADLs, Impaired functional mobility, Limited activity tolerance, Pain, Impaired transfers Equipment Recommended: TBD Rehabilitation Potential: Good Motivation/Commitment to Therapy: Good. Response to Evaluation: Tolerated fairly. Limited by fatigue and nausea. Would benefit from another OT session. Recommend home w/supv upon d/c. Activity/Participation Problem List and Goals: Functional Impairment: Self Care Modifier: [id number] (at least 20%, but less than 40% impaired, limited, or restricted) Goal: supv Goal Modifier: [id number] (at least 20%, but less than 40% impaired, limited, or restricted) Treatment Goals: Time frame to achieve treatment goal(s): 3-5 days 1. Pt supv self care tasks w/good use of AE/techs as needed 2. Pt supv bed mobility and functional transfers w/no v/c for safety 3. Pt supv household distance functional mobility and min challenging standing balance tasks PLAN Treatment Frequency, Duration and Interventions: Occupational Therapy is recommended for 6x/week Occupational Therapy treatment is to include: Graded ADLs, AE/techs, bed mobility and functional transfers, functional mobility and balance, functional activity tolerance, pt/caregiver education, home management and safety Recommended Occupational Therapy Follow Up: Upon acute care discharge, the following is currently recommended: Home exercise program. Recommended Consults: None currently. Development of Plan of Care: Patient participated in plan of care development today. If there are any questions regarding this service, please contact the Acute Therapy Department at extension [phone] CARE WILL BE TRANSFERRED TO THE (CHOICE OF ACUTE OR REHAB) OCCUPATIONAL THERAPIST Communication to Nursing: No updates at this time. Location of Patient at End of Therapy Session: In chair, call light within reach [facility] REC #: [id number] [place] [address] ADMIT DATE: SERVICE DATE: 06/19/18 Occupational Therapy Assessment ATTENDING SHIRLEY: Renee Ibarra DO Services: Total Billed: 0 minutes (Timed: 0, Untimed: 0) 0.00 Untimed: [61784] OT-EVALUATION LOW COMPLEXITY 0.00 Untimed: [] OT Evaluation ORDER 0.00 Untimed: [] OT Treatment General ORDER 0.00 Untimed: [G8987] OT-Self Care-CJ 0.00 Untimed: [G8988] XT-Atdx-Xvsr Care-CJ Signed by: Ninfa Alatorre, 06/19/2018 17:04:59 [facility] PAT[facility] MEDICAL REC #: [id number] [place] [address] ADMIT DATE: SERVICE DATE: 06/19/18 Occupational Therapy Assessment ATTENDING SHIRLEY: Renee Ibarra DO HP.IMS.CON Observed: 06/19/2018 Status: UNK Source: [facility] 3:50 PM [facility] Patient Name: KELLIE HUDSON [address] Date of : [address] [address] Unit Number: [id number] CONSULTATION-HandP Patient Status: [facility] Attending Doctor: Renee Ibarra DO Service Date: 06/19/18 1550 FUAD BURR 06/19/18 1550: History of Present Illness Referring Physician Renee Ibarra DO Consulted Provider Jody Daugherty DO Source of Information Patient Reason for Consult MEDICAL MANAGEMENT Living Situation Home - Independent History of Present Illness Patient is an 82-year-old female with past medical history of asthma, arthritis, and basal cell skin cancer, who presents to [facility] 06/19 for left total knee arthroplasty by Dr. Ibarra. Patient states she has had left knee pain for several years she has had gel injectionS, tried brkl-ull-[id number] pain medication, had her knee drained, and physical therapy with no relief. Due to failed conservative management patient elected for surgical repair. Patient was seen and examined postoperatively in PACU, with complaints of 5 out of 10 left knee pain. Patient was just medicated with Percocet for pain left leg Tavares wrap dry and intact no shadowing noted. Patient denies chest pain, shortness of breath, dizziness, fever, chills, nausea, or vomiting. We have been asked to see for medical management. Past Medical/Surgical Hx Past Medical History Arthritis, asthma, basal cell skin cancer Past Surgical History Heart cath 2013, cholecystectomy, left hip replacement, right shoulder procedure, breast biopsy Family/Social History Family History FATHER, , Age 55; Cause: Myocardial infarct. MOTHER, , Age 94; Cause: Pneumonia. Family Hx Other/Comment Family history reviewed with patient Substances Denies use of: Alcohol, Tobacco, Recreational Drugs. Structured Exercise No Social Hx Patient's lives with her and is retired. Denies tobacco, alcohol, or illicit drug use Advance Directives Advance Directives Full Code Allergies/Home Medications Allergies Coded Allergies: CIPROFLOXACIN (From CIPRO) (ITCHING, RED STREAK UP ARM 06/19/18) AMOXICILLIN (MAKES SICK 06/19/18) CLARITHROMYCIN (From BIAXIN) (MAKES SICK 06/19/18) SIMVASTATIN (From ZOCOR) (MUSCLE PAIN 06/19/18) THIOPENTAL (From PENTOTHAL) (GETS SICK 06/19/18) Home Medications Acetaminophen* (Tylenol 500MG Tab*) 500 MG TABLET 650 MG PO Q6HPRN PRN PAIN, Ref 0 ( Reported) Entered as Reported by FRANKLIN HEBERT on 06/05/18 1122 Last Action: Reviewed on 06/19/18952 by ANGEL TOM Albuterol Inhaler (Ventolin 90MCG Inhaler) 1 PUFF INHALEREA 2 PUFF INH Q4HPRN PRN SOB, Ref 0 (Reported) Entered as Reported by FLORENTIN ARREOLA on 06/03/18 1140 Last Action: Reviewed on 06/19/18952 by ANGEL TOM Calcium Phosphate Trib/Vit D3 (Citracal + D3 Gummies) 1 EACH TAB.CHEW 1 EACH PO QID, Ref 0 (Reported) LD 06/08/18 Entered as Reported by FLORENTIN ARREOLA on 06/03/18 1135 Last Action: Reviewed on 06/19/18952 by ANGEL TOM Cholecalciferol (Vitamin D3) (Vitamin D3) 1,000 UNIT CAPSULE 1,000 UNIT PO QDAY, Ref 0 (Reported) LD 06/08/18 Entered as Reported by FLORENTIN ARREOLA on 06/03/18 1134 Last Action: Reviewed on 06/19/18952 by ANGEL TOM Clobetasol Propionate 15 GM CREAM..G. 15 GM TP QDAYPRN PRN SKIN, Ref 0 (Reported) Entered as Reported by FLORENTIN ARREOLA on 06/03/18 1143 Last Action: Reviewed on 06/19/18952 by ANGEL TOM Docusate Calcium (Stool Softener) 240 MG CAPSULE 240 MG PO QHS, Ref 0 (Reported) Entered as Reported by FLORENTIN ARREOLA on 06/03/18 1137 Last Action: Reviewed on 06/19/18952 by ANGEL TOM Ergocalciferol (Vitamin D2)* (Vitamin D 50,000 Unit Cap*) 50,000 UNIT CAPSULE 50,000 UNIT PO EVERY 2 WEEK, Ref 0 (Reported) LD 06/08/18 Entered as Reported by FLORENTIN ARREOLA on 06/03/18 1134 Last Action: Reviewed on 06/19/18952 by ANGEL TOM Fluticasone Furoate (Flonase Sensimist) 5.9 ML SPRAY.SUSP 1 SPRAYS PRN PRN MUCOUS, Ref 0 (Reported) Entered as Reported by FLORENTIN ARREOLA on 06/03/18 1142 Last Action: Reviewed on 06/19/18952 by ANGEL TOM guaiFENesin* (Mucinex 600MG Tab ER*) 600 MG TABLET.ER 600 MG PO BID, Ref 0 (Reported) Entered as Reported by FLORENTIN ARREOLA on 06/03/18 1138 Last Action: Reviewed on 06/19/18952 by ANGEL TOM Hydroxyurea (Hydrea 500MG Capsule) 500 MG CAP 500 MG PO QODAY, Ref 0 (Reported) Entered as Reported by FLORENTIN ARREOLA on 06/03/181131 Last Action: Reviewed on 06/19/18952 by ANGEL TOM Ibuprofen* (Motrin 400MG Tab*) 400 MG TABLET 400 MG PO Q8HPRN PRN PAIN, Ref 0 (Reported ) STOP 2 WKS PREOP Entered as Reported by FRANKLIN HEBERT on 06/05/18 112 Last Action: Reviewed on 06/19/18952 by ANGEL TOM Inulin/Chromium Picolinate (Fiber Select Gummies Tab Chew) 1 EACH TAB.CHEW 1 EACH PO BID , Ref 0 (Reported) LD 06/08/18 Entered as Reported by FLORENTIN ARREOLA on 06/03/18 1136 Last Action: Reviewed on 06/19/18952 by ANGEL TOM Magnesium Oxide (Magnesium) 500 MG CAPSULE 500 MG PO QDAY, Ref 0 (Reported) LD 06/08/18 Entered as Reported by FLORENTIN ARREOLA on 06/03/18 1137 Last Action: Reviewed on 06/19/18952 by ANGEL TOM Meclizine HCl* (Antivert Tab*) 25 MG UDTAB 25 MG PO TIDPRN PRN DIZZINESS, Ref 0 ( Reported) Entered as Reported by FRANKLIN HEBERT on 06/05/18 1121 Last Action: Reviewed on 06/19/18952 by ANGEL TOM Ranitidine HCl (Zantac 75MG Tab) 75 MG TABLET 75 MG PO BIDPRN PRN HEARTBURN, Ref 0 (Reported) Entered as Reported by FLORENTIN ARREOLA on 06/03/18 1139 Last Action: Reviewed on 06/19/18952 by ANGEL TOM Ubidecarenone (Co Q-10) 200 MG CAPSULE 200 MG PO QDAY, Ref 0 (Reported) LD 06/08/18 Entered as Reported by FLORENTIN ARREOLA on 06/03/18 1136 Last Action: Reviewed on 06/19/18952 by ANGEL TOM Vit A/Vit C/Vit E/Zinc/Copper (Preservision Tablet) 1 EACH TABLET 1 EACH PO BID, Ref 0 (Reported) LD 06/08/18 Entered as Reported by FLORENTIN ARREOLA on 06/03/18 1133 Last Action: Reviewed on 06/19/18952 by ANGEL TOM Inpatient Medications Medications Current Sig/Michael Start time Last Medication Dose Route Stop Time Status Admin Al Hydrox/Mg Hydrox/ 30 ML Q4HPRN PRN 06/19 900 AC Simethicone PO (MAALOX (ALAMAG)PLUS ORAL LIQ) Albuterol Sulfate 2 MG Q4HPRN PRN 06/19 830 AC (VENTOLIN/PROVENTIL INH 2.5MG/3ML INH.NEB) Bisacodyl 5 MG ONCE ONE 06/20 900 AC (DULCOLAX TAB.EC) PO 06/20 901 Bisacodyl 10 MG ONCE ONE 06/20 900 AC (DULCOLAX RECT) RC 06/20 901 Diphenhydramine HCl 25 MG Q6HPRN PRN 06/19 900 AC (BENADRYL CAP) PO Enoxaparin Sodium 40 MG QDAY 06/20 900 AC (LOVENOX D.SYR) SC Hydromorphone HCl 2 MG Q3HPRN PRN 06/19 900 AC (DILAUDID D.SYR) IM Lactated Ringer's 1,000 ML CONT 06/19 900 AC (Lactated Ringers) IV Ondansetron HCl 4 MG Q6HPRN PRN 12/19 0900 AC (ZOFRAN VIAL) IV Oxycodone/ 1 UDTAB Q3HPRN PRN 06/19 0900 AC Acetaminophen PO (percoCET-5/325 TAB) Oxycodone/ 2 UDTAB Q3HPRN PRN 06/19 0900 AC Acetaminophen PO (percoCET-5/325 TAB) Pantoprazole Sodium 40 MG QDAYAC 06/21 07 AC (PROTONIX TAB) PO Sodium Chloride 3 ML Q8H 06/19 1400 AC (Sodium Chloride IV 0.9% FLUSH D.SYR) Sodium Chloride 3 ML PRN PRN 06/19 09 AC (Sodium Chloride IV 0.9% FLUSH D.SYR) Zolpidem Tartrate 5 MG QHSPRN PRN 06/19 900 AC (AMBIEN TAB) PO Review of Systems ROS: Other Constitutional - [Denies any fever, chills, fatigue.] Eyes - [Denies any blurred vision, double vision.] HEENT -[Denies any difficulty hearing, difficulty swallowing, headaches, or sore throat.] Cardiovascular - [Denies any chest pain, chest pressure, palpitations or dizziness.] Respiratory - [Denies any cough, hemoptysis, shortness of breath.] Gastrointestinal - [Denies any abdominal pain, diarrhea, nausea, or vomiting.] Genitourinary - [Denies any dysuria, hematuria. Skin denies any jaundice, rash.] Neurologic - [Denies any blurred vision, double vision, slurred speech, headaches, or numbness and tingling.] Psychiatric - [Denies any anxiety, depression.] Physical Exam Vital Signs Vital signs Temperature 97.1, blood pressure 137/60, heart rate 78, respiratory rate 16, 98% Preop labs and medical record review Physical Exam Summary Constitutional - Patient appears well groomed, appropriate, alert. Eyes - Anicteric, normal conjunctiva. ENT - Head normocephalic,atraumatic. Oral mucosa pink and moist. Neck supple, trachea midline. Cardiovascular - Heart is regular rate and rhythm. No gallops, rubs, murmurs noted. No evidence of carotid bruit heard. Respiratory - nonlabored, regular, even. Clear to auscultation. Skin - Appears warm, dry, intact. Gastrointestinal - Abdomen soft, bowel sounds present, nontender. No guarding or rebounding noted. Genitourinary - Not examined Lymph - No gross lymphadenopathy noted. Musculoskeletal - Grasps appear moderate in strength and equal. Pulses are +2. No edema noted. Left lower extremity Tavares wrap dry and intact no shadowing noted. Toes warm and mobile. Capillary refill less than 3 seconds. Neurologic - Patient is alert and oriented and appropriate 3. Speech is clear. No facial droop noted. Psychiatric - Patient appears calm, no anxiety or depression noted. Conclusion / Plan Conclusion 1. Asthma Continue home albuterol 2. Hx of skin cancer, basal cell Continue home medication 3. Arthritis Status post left total knee arthroplasty. Surgery managing. DVT and GI prophylaxis per surgeon. Encourage incentive spirometry. Thank you for allowing us to participate in the care of this patient. We will continue to follow her as needed throughout her hospital stay. Stable Problems Problems not specifically addressed in the above plan are stable and do not warrant adjustment of the current method of therapy. Collaborating Physician Jody Daugherty CHANDNI 06/19/18 1851: Physician Attestation Statement of Attestation I have personally performed a [id number] diagnostic evaluation for this patient independently. I have discussed the case with nurse practitioner. 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 Phonetic and/or minor grammatical errors may exist. eSign Date and Time Jody Daugherty DO Verified/Reviewed by 06/19/18 1855 Fuad Burr CNP Verified/Reviewed by 06/19/18 1600 PTAR Observed: 06/19/2018 Status: UNK Source: [facility] 3:39 PM [facility] REPOSITORY Physical Therapy Inpatient Evaluation Medical Diagnosis: s/p Left TKA performed by dr. Ibarra on 06/19/18 Therapy Diagnosis: Rank Code Description 1 R26.81 Unsteadiness on feet 2 M62.81 Muscle weakness (generalized) Demographics: Age: 82Y Gender: Female Primary Language: Qatari Preferred Language: Qatari Referring Service/Team: Orthopedics Past Medical History: Heart murmur, incontinence, GERD, arthritis, 1990 Left SNEHAL, 1996 Right SNEHAL, 1994 right joaquim, 2003 left breast bx, 2017 right carpal tunnel, 2009 coplan right shoulder, 2013 Left revision SNEHAL, History of Present Illness: Date of Surgery: 06/19/18 Additional Information: Elective Surgery Date of Admission: 06/19/2018 8:56:00 AM Rehabilitation Precautions/Restrictions: WBAT LLE Imaging/Testing Results from Chart: N/A SUBJECTIVE Prior Level of Functioning: Indoor Mobility: Patient completed the activities by him/herself, with or without an assistive device, with no assistance from a helper. Stairs: Patient completed the activities by him/herself, with or without an assistive device, with no assistance from a helper. Denies use of AD. Denies falls. Indep with ADL. Share cooking and cleaning Prior Device Use: Performance GG110. Prior Device None of Above Yes Patient/Caregiver Goals: Patient's functional goals: To go home Pain: Patient currently has pain. Location: Knee pain Type: Acute Quality: Aching. Pain Scale: Visual Analog (VAS). Patient reports a pain level of 6 out of 10. [facility] PATIENT NAME: KELLIE HUDSON [address] [facility] [address] MEDICAL REC #: [id number] [place] [address] ADMIT DATE: SERVICE DATE: 06/19/18 Physical Therapy Assessment Report ATTENDING PHY: Renee Ibarra DO Patient's acceptable level of pain 0 out of 10. Pain does not interfere with any activity at this time. Pain is alleviated by: Pain mediations Pain is exacerbated by: movement Interventions: Repositioned patient. Home Environment: Patient lives with whom is able to assist PRN , who is able to assist patient at discharge. Patient lives in a condominium. Home is single level. Patient is not required to manage stairs within the home. First floor full bathroom setup available. No stairs to enter the home. There is no ramp available to enter home. Walk in shower with seat, grab bar Equipment Owned: ww, cane, professional architect Social History: Marital Status: Children: It is unknown whether patient has children Employment Status: Retired Recreational Activities/Hobbies: shopping OBJECTIVE Cognitive Screen Responsiveness: Nausea Orientation: Oriented to person, place, time, and situation. Following Commands: Patient is able to follow 3-step commands. Range of Motion Upper Extremity: Grossly within functional limits Lower Extremity: Not within functional limits LLE ROM decrease due to acute surgical intervention. RLE ROM WFL Strength Upper Extremity: Grossly within functional limits Lower Extremity: Not within functional limits LLE MMT deferred Tone/Spasticity: Within Normal Limits throughout. Sensation: Grossly intact. Balance: Dynamic balance in a standing position is good. CGA Therapeutic/Functional Activities: Bed Mobility: Not assessed. Transfers: Patient transferred sit to/from stand requiring contact guard assistance of 1 person. Patient used the following equipment: Arms of chair. Verbal cues for hand placement Locomotion/Gait/Ambulation: Patient was contact guard with gait/ambulation of 1 person for 10 feet x 2 . Patient requires the following assistive device(s): Rolling walker. Slow reciprocal gait pattern 1600 [facility] PATIENT NAME: KELLIE HUDSON [address] [place] MEDICAL REC #: [id number] [place] [address] ADMIT DATE: SERVICE DATE: 06/19/18 Physical Therapy Assessment Report ATTENDING PHY: Renee Ibarra DO Gait Deviations: No gait deviations. Stairs: Not assessed. AM-PAC Basic Mobility: Turning Over in Bed: No difficulty Sitting/Standing Chair with Arms: A little difficulty Lying on Back to Sitting on Side of Bed: No difficulty Moving To/From Bed to Chair: A little help needed Walking in Hospital Room: A little help needed Climbing 3-5 Steps with Railing: A little help needed Raw Score = 20 , AM-PAC t-Scale Score = 47.67 and G-Code Modifier = CJ Vital Signs: Not assessed. Interventions: Evaluation LOW Complexity Therapeutic Activities: AP, LAQ, heel slides, gut sets, quad sets, educated on PT plan of care, educated on mobility benefits, educated on discharge recommendation Pain Reassessment: Increase in pain during session. Increase pain Education: The patient's preferred learning method is: Explanation, Demonstration Barriers to Learning: Acuity of illness Learning Needs: Precautions. Pain management. Plan of care. Rehabilitation techniques and procedures. Safety. Education Provided: No education provided this session. ASSESSMENT Problem List: Decreased endurance, Decreased strength, Impaired ambulation, Impaired stair/curb negotiation Strengths: Independent premorbid function Rehabilitation Potential: Excellent Pt agreeable Motivation/Commitment to Therapy: Good. Response to Evaluation: Patient tolerated PT evaluation fair. Educated patient on knee precautions, weight bearing status, functional transfer training, safety awareness, and therapeutic exercise. Patient completed functional mobility of transfers and gait with CGA along with verbal cues for sequencing and safety concerns. Implement acute care physical therapy interventions to address gait and steps in preparations for home going. Recommend home with OP PT upon acute care discharge. Activity/Participation Problem List and Goals: Functional Impairment: Mobility: Walking and Moving Around. [facility] PATIENT NAME: KELLIE HUDSON [address] [place] MEDICAL REC #: [id number] [place] [address] ADMIT DATE: SERVICE DATE: 06/19/18 Physical Therapy Assessment Report ATTENDING PHY: Renee Ibarra DO Modifier: [id number] (at least 20%, but less than 40% impaired, limited, or restricted) Goal: Complete 80 feet supv ww Goal Modifier: [id number] (at least 1%, but less than 20% impaired, limited or restricted) Treatment Goals: Time frame to achieve treatment goal(s): 2 weeks 1. Complete 80 feet supv ww 2. Complete transfers supv 3. Complete dynamic standing balance x 20 seconds supv PLAN Treatment Frequency, Duration and Interventions: Physical Therapy is recommended for BID Physical Therapy treatment is to include: Gait training, transfer training, balance, functional tasks, HEP, thera act, thera exercise, steps, education on home going safety/recommendations, educated on fall risk, education on mobility benefits, educate on ice management, educate on car transfer Recommended Physical Therapy Follow Up: Upon acute care discharge, the following is currently recommended: Outpatient Physical Therapy. Recommended Equipment: Rolling walker. ww . Rolling walker. Recommended Consults: Occupational Therapy. Development of Plan of Care: Patient participated in plan of care development today. Pt agreeable If there are any questions regarding this service, please contact the Acute Therapy Department at extension [phone] Communication to Nursing: Walking: CGA Location of Patient at End of Therapy Session: In chair, call light within reach Services: Total Billed: 8 minutes (Timed: 8, Untimed: 0) 8.00 Timed: [02643] THER ACTIVITIES / 15 MIN 0.00 Untimed: [90851] PT-EVALUATION LOW COMPLEXITY 0.00 Untimed: [] PT Evaluation ORDER 0.00 Untimed: [] PT Treatment- General ORDER 0.00 Untimed: [G8978] PT-Mobility: Walking and Moving Around-CJ 0.00 Untimed: [G8979] YP-Ztcj-Fhkkmlze: Walking and Moving Around-CI Signed by: Laura Chau, 06/19/2018 16:47:51 [facility] PATIENT NAME: KELLIE HUDSON [address] [place] MEDICAL REC #: [id number] [place] [address] ADMIT DATE: SERVICE DATE: 06/19/18 Physical Therapy Assessment Report ATTENDING PHMable: Renee Ibarra DO [facility] PATIENT NAME: KELLIE HUDSON [address] [place] MEDICAL REC #: [id number] [place] [address] ADMIT DATE: SERVICE DATE: 06/19/18 Physical Therapy Assessment Report ATTENDING PHY: Renee Ibarra DO TS Collected: 06/19/2018 Status: F Source: [facility] 9:21 AM [facility] REPOSITORY Order Comment: [place]: M Patient transfused or in the past 3 months: NO Is This Patient Going To Surgery? Y Surgery Date: 06/19/18 TYPE CODE TESTS RESULT OUT OF RANGE REFERENCE UNITS LAB B100.0400 O Normal BLOOD TYPE NEGATIVE LAB B100.0680 Normal ANTIBODY NEGATIVE SCREEN OR Observed: 06/19/2018 Status: UNK Source: [facility] 8:56 AM [facility] REPOSITORY DATE OF SERVICE: 06/19/2018 TIME: 1 p.m. PREOPERATIVE DIAGNOSIS: Primary endstage osteoarthritis, left knee, valgus deformity. POSTOPERATIVE DIAGNOSIS: Primary endstage osteoarthritis, left knee, valgus deformity. OPERATION: Total knee left utilizing [employer]hew Oxinium size 4 cruciate retaining femoral component, a size 3 Ursula tibial baseplate, a 9-mm dished articular insert, and a 35 button. SURGEON: Renee Ibarra DO SPECIAL NEEDS TEACHER: Mary Jane Vigil PA-C ANESTHESIA: General with peripheral and local for postop pain management. BLOOD LOSS: 25 mL. COMPLICATIONS: None. CONDITION: Stable. INDICATION: Kellie is an 82-year-old white female. She has been having significant problems with ambulation, instability, trouble with steps due to valgus severe deformity of the left knee. She has undergone multitudes of conservative modalities including injections, antiinflammatories, bracing, physical therapy without significant improvement in her condition. We did discuss the procedure with her. We showed her the model, discussed her goals which were to be able to go to [employer] and go shopping without discomfort or fear of falling then we discussed the procedure, the risks, the benefits, postop management, the rehabilitation efforts required postoperatively. She is aware of that, consent signed. PROCEDURE: Patient brought down to the OR, placed in the supine position. After induction of general anesthesia, a tourniquet was placed on the left proximal thigh and the left leg was sterilely prepped and draped in the usual orthopedic fashion. An Esmarch was used to exsanguinate the limb, and the tourniquet was inflated to 280 mmHg for 44 minutes. An 8-cm incision was made anteriorly followed by a medial arthrotomy. The patella was reflected back. The knee was then flexed and held by my assistants. This revealed the underlying severe erosion of the lateral compartment, hypoplastic lateral femoral condyle, and severe grade 4 changes of the patellofemoral joint. Intramedullary guides were utilized to make our femoral and tibial cuts. Once we had soft tissue balance with flexion, extension gaps equal, we reamed the [facility] PATIENT NAME: KELLIE HUDSON [address] [place] MEDICAL REC #: [id number] [place] [address] ADMIT DATE: DISCHARGE DATE: OPERATIVE REPORT ATTENDING PHY: Renee Ibarra DO patella down to 12 mm of healthy bone, replaced that with a 35 button. Tracking was anatomic with the no thumbs technique. All trials were then removed. We irrigated with IrriSept and saline, injected our local mixtures into the deep and superficial tissues for postop pain management and then cemented our main components. Once the cement hardened, we let the tourniquet down, removed excess cement. There was no arterial bleeding. We then went ahead with the insert of the 9-mm dished articular surface without difficulty. We then closed the quadriceps with a No. 1 Ethibond suture followed by an injection of tranexamic acid intraarticularly to control bleeding and then the remainder of the closure was with 0 Vicryl, 3-0 Vicryl, jaci, silver dressing, and the application of a modified Skinner dressing with the knee in full extension. She was then brought up out of anesthesia, extubated, transported to her bed and to the recovery room in a stable condition. Mary Jane Vigil PA-C assisted with proper preoperative positioning, determining availability of proper implants, prepping and draping of patient, manipulation placement of instruments, protection of ligaments and vital soft tissue structures, assistance in maintaining hemostasis with assistance with closure of wound. Her skills and knowledge of the steps of the operation and the desired outcome of each surgical step was crucial, allowing for an efficient surgical procedure, and closure of the wound which lead to reduced surgical time, less blood loss, and less risk of complications for the patient. Renee Ibarra DO [id number] SSI File#: [id number] Verified/Reviewed by 06/19/18 1556 GEGE [facility] PATIENT NAME: KELLIE HUDSON [address] MEDICAL REC #: [id number] [place] [address] ADMIT DATE: DISCHARGE DATE: OPERATIVE REPORT ATTENDING PHY: Renee Ibarra DO ABO/RH NC Collected: 06/05/2018 Status: F Source: [facility] 11:55 AM [facility] REPOSITORY Order Comment: [place]: M Is This Patient Going To Surgery? Y Surgery Date: 06/19/18 TYPE CODE TESTS RESULT OUT OF RANGE REFERENCE UNITS LAB B100.0400 O Normal BLOOD NEGATIVE TYPE PATIENT RETYPE Collected: 06/05/2018 Status: F Source: [facility] 11:55 AM [facility] REPOSITORY Order Comment: [place]: M Is This Patient Going To Surgery? Y Surgery Date: 06/19/18 TYPE CODE TESTS RESULT OUT OF RANGE REFERENCE UNITS LAB B100.36651 O Normal RETYPE NEGATIVE INTERP ANTIBODY SCREEN Collected: 06/05/2018 Status: F Source: [facility] 11:55 AM [facility] REPOSITORY Order Comment: [place]: M Is This Patient Going To Surgery? Y Surgery Date: 06/19/18 TYPE CODE TESTS RESULT OUT OF RANGE REFERENCE UNITS LAB B100.0680 Normal ANTIBODY NEGATIVE SCREEN CBC W/DIFF Collected: 06/05/2018 Status: F Source: [facility] 11:55 AM [facility] REPOSITORY Order Comment: [place]: M TYPE CODE TESTS RESULT OUT OF RANGE REFERENCE UNITS LAB L200.18033 4.5-11.0 K/CU MM WBC Normal 4.7 LAB L200.05156 3.90-5.30 M/CU MM RBC Normal 4.15 LAB L200.45505 11.5-15.5 G/DL HGB Normal 13.1 LAB L200.61172 35.0-47.0 % HCT Normal 40.8 LAB L200.68622 80.0-99.0 fl MCV Normal 98.3 LAB L200.58807 32.0-36.0 GM/DL MCHC Normal 32.1 LAB L200.87693 11-14.5 RDW Normal 14.5 LAB L200.18362 9.4-12.4 MPV Normal 9.5 LAB L200.21714 150-450 K/CU MM PLT Normal 401 LAB L200.57361 45-75 % NEUTROPHILS Normal % 60.1 LAB L200.38710 Less than 2 % IMMATURE Normal GRAN % 0.2 LAB L200.50411 20-40 % LYMPH % Normal 23.2 LAB L200.15807 2-10 % High MONOCYTE % 12.4 LAB L200.04468 0-5 % EOSINOPHIL Normal % 3.0 LAB L200.96579 0-2 % BASOPHIL % Normal 1.1 LAB L200.33020 2.0-8.3 K/CU MM NEUTROPHIL Normal ABS 2.90 LAB L200.79573 Less than 2 K/CU MM IMMATR GRAN Normal ABS 0.00 LAB L200.42058 0.9-4.4 K/CU MM LYMPH ABS Normal 1.10 LAB L200.96877 0.1-1.1 K/CU MM MONO ABS Normal 0.60 LAB L200.76789 0-0.5 K/CU MM EOS ABS Normal 0.10 LAB L200.68240 0-0.2 K/CU MM BASO ABS Normal 0.10 LAB L200.48435 Less than 1 % NRBC Normal 0.0 Performed By: #### L200.32331 #### [facility] [address] [place] [address] PT Collected: 06/05/2018 Status: F Source: [facility] 11:55 AM [facility] REPOSITORY Order Comment: [place]: M TYPE CODE TESTS RESULT OUT OF RANGE REFERENCE UNITS LAB L300.67596 0.9-1.1 Normal INR 0.97 Result Comment: Recommended PT INR therapeutic range for bagman/woman and prophylactic therapy is 2.0 - 3.0. For heart valve and shunt patients the range is 2.5 - 3.5. LAB L300.69997 9.5-12.0 SECONDS Normal PTS 10.3 Performed By: #### L300.61223, L300.94259 #### [facility] [address] [place] [address] PTT Collected: 06/05/2018 Status: F Source: [facility] 11:55 AM [facility] REPOSITORY Order Comment: [place]: M TYPE CODE TESTS RESULT OUT OF RANGE REFERENCE UNITS LAB L300.66589 22.0-31.5 SECONDS Normal PTT 26.2 Result Comment: Therapeutic Heparin Reference Range: High Dose: 46-75 seconds (DVT/PE) Low Dose: 39-60 seconds (Acute Coronary Syndrome) For low molecular weight heparin or danaparoid, monitoring is often NOT necessary, but the heparin assay, Xa inhibition assay (send-out) may be used in certain circumstances, as the PTT is generally insensitive to the effect of these agents. Direct thrombin inhibitors are becoming more widely utilized and these drugs are often monitored using the PTT. Performed By: #### L300.67449, L300.55818 #### [facility] [address] [place] [address] BMP Collected: 06/05/2018 Status: F Source: [facility] 11:55 AM [facility] REPOSITORY Order Comment: [place]: M TYPE CODE TESTS RESULT OUT OF RANGE REFERENCE UNITS LAB L500.67181 136-145 MMOL/L Normal NA 138 LAB L500.32257 3.5-5.1 MMOL/L Normal K 4.7 LAB L500.86843 98-107 MMOL/L Normal CL 104 LAB L500.36125 21-32 MMOL/L Normal CO2 27 LAB L500.25298 5-16 MMOL/L Normal AGAP 7 LAB L500.35837 70-100 MG/DL Normal GLU 77 Result Comment: 70-100- Normal Fasting; 100-125 Impaired Fasting; greater than 126 on more than one result- Diabetes. ADA guidelines. Results may be falsely elevated after the administration of Sulfapyridine. Results may be falsely depressed after the administration of Sulfasalazine. LAB L500.40911 7-26 MG/DL Normal BUN 17 LAB L500.56412 0.510-0.950 MG/DL Normal CREAT 0.663 Result Comment: Patients receiving either N-Acetylcysteine (NAC) or Metamizole prior to venipuncture, may have falsely depressed results. LAB L500.31747 15-24 High BUN/CREA 25 LAB L500.49367 8.5-10.1 MG/DL Normal CALCIUM TOTAL 9.3 Performed By: #### L500.82294, L500.17227 #### [facility] [address] [place] [address] GFR EST Collected: 06/05/2018 Status: F Source: [facility] 11:55 AM [facility] REPOSITORY Order Comment: [place]: M TYPE CODE TESTS RESULT OUT OF RANGE REFERENCE UNITS LAB L500.82249 ML/MIN Normal IF non-AFR Greater than AMER 60 LAB L500.27422 ML/MIN Normal IF Greater than AMER 60 Performed By: #### L500.69652, L500.42455 #### [facility] [address] [place] [address] MRSA PCR Collected: 06/05/2018 Status: F Source: [facility] 11:55 AM [facility] REPOSITORY Order Comment: [place]: M TYPE CODE TESTS RESULT OUT OF RANGE REFERENCE UNITS LAB L770.72631 NEGATIVE Normal MRSA NEGATIVE PCR Result Comment: PLEASE NOTE: TESTING DONE BY [employer]. The SA Nasal complete MRSA assay on the [employer] GeneXpert has not been validated for use on patients under 21 years of age. All patients under 21 years of age, run on the GeneXpert will be confirmed by a Blood [place] plate, followed by an MAURICIO, to confirm MRSA. LAB L770.29952 NEGATIVE Normal NEGATIVE SA PCR Result Comment: PLEASE NOTE: TESTING DONE BY [employer]. Performed By: #### L770.99417 #### [facility] [address] [place] [id number] Observed: 06/05/2018 Status: F Source: [facility] URINE CULTURE 11:07 AM [facility] REPOSITORY Order Comment: [place]: URINE RESULT LESS THAN 10,000 COLONIES PER ML Performed By: #### M100.36279 #### [facility] [address] [address] CHERI ABS GR + CBC Collected: 06/04/2018 Status: F Source: [place] 12:10 PM [facility] REPOSITORY TYPE CODE TESTS RESULT OUT OF REFERENCE UNITS RANGE LAB WWBC 3.70-11.00 k/uL [place] WBC 5.35 LAB WRBC 3.90-5.20 m/uL [place] RBC 4.16 LAB WHGB 11.5-15.5 g/dL [place] Hemoglobin 13.5 LAB WHCT 36.0-46.0 % [place] Hematocrit 41.0 LAB WMCV 80.0-100.0 fL [place] MCV 98.6 LAB WMCH 26.0-34.0 pg [place] MCH 32.5 LAB WMCHC 30.5-36.0 g/dL [place] MCHC 32.9 LAB WRDW 11.5-15.0 % [place] RDW 14.7 LAB WPLT 150-400 k/uL [place] Platelet Cnt 377 LAB WMPV 9.0-12.7 fL [place] MPV 9.3 Result Comment: Test performed at: [facility] [place], [address] [facility] [address] [place] [address]. LAB ABGRAN 1.45-7.50 k/uL Absol Gran 3.[address] THORAX W/O Observed: 05/21/2018 Status: F Source: [place] [facility] 11:00 AM [facility] REPOSITORY ORIGINAL CT THORAX W/O CONTRAST CLINICAL STATEMENT: LUNG NODULE, HX OF SKIN CANCER COMPARISON: 11/21/2017 FINDINGS:Today's examination was performed as a noncontrast enhanced CT of the thorax and compared to prior images 11/21/2017 RIGHT humeral prosthesis is in place. Included cervical soft tissue structures are unchanged in appearance from prior films. Chronic changes to the LEFT shoulder are partially demonstrated. The mediastinal contours are stable. The cardiac contours are grossly unchanged. Trace amount of pericardial fluid and/or thickening is unchanged from prior films. There is a hiatal hernia redemonstrated. Partial inclusion of the upper abdomen partially demonstrates the multiple cystic changes present in the pancreatic head on CT images from 11/21/2017. Today's examination is in adequate in evaluation of these findings. Images reviewed at lung windows demonstrate marked hyperinflation of the lung parenchyma. The aeration pattern is relatively stable. Punctate nodularity in the LEFT hemithorax is unchanged best apprecia asa in the posterior inferior lateral aspect of the LEFT upper lobe on image 31 and within the RIGHT lower lobe on image 54. On the RIGHT, a stable punctate nodular density in the RIGHT upper lobe on im age 15 is noted. Punctate nodule on image 18 posteriorly in the RIGHT upper lobe is also unchanged. There is no new suspicious infiltrate or consolidation confirmed. Review of images at bone window is demonstrates marked osteopenia and degenerative change. Subchondral lucencies to the LEFT glenoid fossa are stable. Diffuse osteopenia increased is the risks for occult process. IMPRESSION:Stable pulmonary nodularity. No acute process. This exam was performed according to our departmental dose optimization program, and includes the following measures where applicable: automated exposure control, adjustment of the mAs and/or kVp accord ing to patient size and/or exam, and an iterative reconstruction algorithm. Interpreted By: Liat Kelly MD Preliminary Report By: Liat Kelly MD Electronically Signed By: Liat Kelly MD Dictated Date: 05/21/2018 2:08:31 PM Prelim Date: 05/21/2018 2:08:31 PM Sign Date: 05/21/2018 2:12:24 PM 12 LEAD ELECTROCARDIOGRAM Observed: 04/23/2018 Status: F Source: [place] 11:18 AM [facility] REPOSITORY [facility] Cardiovascular Services [address] [place] [address] 12 Lead EKG 04/20/18 1813 MR#: [id number] Acct: [id number] Name: KELLIE HUDSON #: [id number] : 1935 82 From: Yfn Johnson MD Attending Dr: Status: DEP ER Ordering Dr: Chris Matute MD Date: 04/20/18 Location: ED Sex: F C Admitted: Test Reason : CP Blood Pressure : / mmHG Vent. Rate : 075 BPM Atrial Rate : 075 BPM P-R Int : 138 ms QRS Dur : 088 ms QT Int : 352 ms P-R-T Axes : 062 014 068 degrees QTc Int : 393 ms Normal sinus rhythm Nonspecific ST and T wave abnormality Abnormal ECG Confirmed by ALEX SAUCEDO, YFN ([id number]), acquisition editor WILLOW RED ([id number]) on 04/23/2018 11:18:02 AM Referred By: Confirmed By:YFN JOHNSON MD 04/23/18 1118 Date Yfn Johnson MD CC: Chris Matute MD; Cody Vanegas DO Signed DISCHARGE INSTRUCTION Observed: 04/20/2018 Status: F Source: [place] 8:33 PM [facility] REPOSITORY [facility] Medical Records Department [address] [place] [address] Discharge Instruction 04/20/182031 MR#: [id number] Acct: [id number] Name: KELLIE HUDSON Rep #: [id number] : 1935 82 From: Chris Matute MD PCP: Cody Vanegas DO Status: REG ER ED Disposition - Plan for ED Patient: Chief Complaint: Abd Pain Instructions: ED GERD Prescriptions: Omeprazole [Prilosec] 20 mg PO DAILY #30 cap Referrals: Cody Vanegas DO [Primary Care Provider] - What to do if you have Problems For any increased pain, shortness of breath, bleeding, nausea or vomiting, chest pain, or any unexpected problems, contact your Primary Care Provider. Call [facility] ([phone]) or report to the closest Emergency Room. Call 911 if necessary. 10/20/18 2033 <Electronically signed by Chris Matute MD> Date Chris Matute MD Cosigner Signature (If Indicated): Date CC: Cody Vanegas DO EMERGENCY DEPARTMENT Observed: 04/20/2018 Status: F Source: [place] SUMMARY 8:32 PM [facility] REPOSITORY [facility] Medical Records Department [address] [place] [address] Emergency Department Summary 04/20/18 2030 MR#: [id number] Acct: [id number] Name: KELLIE HUDSON Rep #: [id number] : 1935 82 From: Chris Matute MD PCP: Cody Vanegas DO Status: REG ER - ER Visit Summary Date of Service: 04/20/18 Chief Complaint: Heartburn History of Present Illness: The patient is a 82 F who presents with heartburn. She does have a history of a hiatal hernia. She has had prior similar symptoms. She is to be on a proton pump inhibitor but was told due to side effects to discontinue this. Over the last month she has been having intermittent heartburn. She describes a burning sensation in her lower chest. This is relieved with eating, Tums, or Zantac. However today was worse. She states she had seen a flyer about women and chest pain and became somewhat concerned so presented here. However her symptoms have actually since resolved and currently she has no pain. She reports nausea but no vomiting. No difficulty breathing or sweats. Physical Examination: Afebrile vitals unremarkable Moist mucous membranes Heart regular rate and rhythm Lungs are clear Abdomen soft Alert Normal affect Test Results: EKG shows normal sinus rhythm at a rate of 75. CBC BMP troponin all normal. Chest x-ray shows borderline cardiomegaly. Emergency Department Course and Treatment: Patient's workup is unremarkable. I do believe this is most likely related to her hiatal hernia and gastroesophageal reflux. We will start her on Prilosec. She was advised to follow-up with her primary care physician. She understands to return for new or worsening symptoms. She was discharged. Treatment Plan: [] Disposition: Discharge Impression: Gastroesophageal reflux This note was generated with [employer] dictation software. It may contain incorrect words, spelling, and punctuation that were not noted in review of the chart prior to signing ED Disposition - Plan for ED Patient: Chief Complaint: Abd Pain Referrals: Cody Vanegas, DO [Primary Care Provider] - What to do if you have Problems For any increased pain, shortness of breath, bleeding, nausea or vomiting, chest pain, or any unexpected problems, contact your Primary Care Provider. Call [facility] ([phone]) or report to the closest Emergency Room. Call 911 if necessary. 04/20/182031 <Electronically signed by Chris Matute MD> Date Chris Matute MD Cosigner Signature (If Indicated): Date CC: Cody Vanegas DO CBC W/DIFF, AUTOMATED Collected: 04/20/2018 Status: F Source: [place] 6:45 PM [facility] REPOSITORY TYPE CODE TESTS RESULT OUT OF RANGE REFERENCE UNITS LAB L100.1000 4.4-11.0 K/mm3 Normal WBC 5.5 LAB L100.1200 4.2-5.4 M/mm3 Normal RBC 4.20 LAB L100.1300 12.0-15.0 g/dl Normal HGB 13.6 LAB L100.1400 37-47 % Normal HCT 40.9 LAB L100.1500 81-99 fL Normal MCV 97.4 LAB L100.1600 27.0-32.0 pg High MCH 32.4 LAB L100.1700 32-36 g/gl Normal MCHC 33.3 LAB L100.1810 11.6-14.6 % Normal RDW CV 14.5 LAB L100.1820 35.1-43.9 fl High RDW SD 49.9 LAB L100.1900 150-450 K/mm3 Normal PLT 427 LAB L100.2000 6.2-12.0 fl Normal MPV 9.2 LAB L100.2100 47-70 % Normal NEUT% 64.5 LAB L100.2200 19-41 % Normal LY% 20.0 LAB L100.2300 0-10 % High MONO% 11.6 LAB L100.2400 0-5 % Normal EO% 3.3 LAB L100.2500 0-1 % Normal BASO% 0.4 LAB L100.2550 0.0-0.9 % Normal IM GRAN % 0.200 Result Comment: IG% - Immature Granulocytes (promyelocytes, myelocytes and metamyelocytes) > 1% indicates that a LEFT SHIFT is Present. LAB L100.2620 2.0-7.7 X10 3/uL Normal Absolute Neut 3.5 LAB L100.2720 0.83-4.51 X10 3/ul Normal Absolute Lymph 1.09 Performed By: #### L100.0100 #### [facility] [address] [place], [address] BASIC METABOLIC Collected: 04/20/2018 Status: F Source: [place] PROFILE ([facility]) 6:45 PM [facility] REPOSITORY TYPE CODE TESTS RESULT OUT OF RANGE REFERENCE UNITS LAB L501.0100 74-106 mg/dL High GLU 114 Result Comment: Fasting Glucose result from 100 to 125 mg/dL suggests IMPAIRED HOMEOSTASIS per A.D.A. criteria. Please note revised GLUCOSE reference range effective 2017. LAB L501.1000 7-18 mg/dL Normal BUN 14 LAB L501.1100 0.55-1.02 mg/dL Normal CREAT,SERUM 0.58 Result Comment: The validity of the calculated GFR AND GFRAA in patients over 70 years has not been determined. Clinical correlation is essential. LAB L501.1110 >60 mL/min Normal EST GFR 105 Result Comment: Non- GFR Calc LAB L501.1115 >60 mL/min Normal EST GFR - AA 127 Result Comment: GFR Calc LAB L501.1255 ml/min Normal Estimated CRCL 35.88 LAB L501.1300 10-20 RATIO High BUN/CRE 24.1 LAB L501.2200 8.5-10 mg/dL Normal .1 CA 9.2 LAB L501.5300 136-14 mmol/L Normal 5 NA 138 LAB L501.5600 3.5-5. mmol/L Normal 1 K 4.0 LAB L501.5900 98-107 mmol/L Normal CL 105 LAB L501.6100 21.0-3 mmol/L Normal 2.0 CO2 26.0 LAB L501.6200 5-15 Normal GAP 7 Performed By: #### L500.2500, L501.4010 #### [facility] [address] [facility] [place], [address] TROPONIN-I Collected: 04/20/2018 Status: F Source: [place] 6:45 PM [facility] REPOSITORY TYPE CODE TESTS RESULT OUT OF RANGE REFERENCE UNITS LAB L501.4010 <0.045 ng/mL Normal < 0.015 TROPONIN-I Result Comment: TROPONIN-I EXPECTED VALUES <0.045 Negative 0.045 - 0.590 Consistent with Cardiac Damage > OR = 0.600 Critical Value Not every elevated troponin is indicative of [place]. These values should be used with clinical judgement in examining the patient's clinical picture for diagnosis. To establish a diagnosis of [place] versus myocardial injury, there must be a demonstrated rise and/or fall in the troponin values, in addition to ischemic symptoms, EKG changes, new regional wall motion abnormality, and/or angiographical evidence. PLEASE NOTE: REFERENCE RANGES EDITED 17 Performed By: #### L500.2500, L501.4010 #### [facility] [address] [facility] [place], [address] CHEST PA AND LATERAL Observed: 04/20/2018 Status: F Source: [place] 6:32 PM [facility] REPOSITORY [facility] Imaging Services [address] [facility] [address] Chest PA and Lateral MR#: [id number] Acct: [id number] Name: KELLIE HUDSON Rep #: [id number] : 1935 F 82 From: Tu Montana MD PCP: Cody Vanegas DO Status: REG ER Study: Chest PA and Lateral Date of Exam: 04/20/18 Exam# [id number] Ordering Dr: Chris Matute MD STUDY: X-RAY CHEST REASON FOR EXAM: Female, 82 years old. Intermittent heartburn. TECHNIQUE: Frontal and lateral views of the chest. COMPARISON: None. FINDINGS: The lungs are hyperexpanded. There is no demonstrated pleural abnormality. There is borderline cardiomegaly. Normal mediastinum and roni. Normal visualized pulmonary arteries. Normal visualized aortic arch and descending thoracic aorta. There are diffuse degenerative changes of the visualized thoracic spine. 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 There is no demonstrated abnormality of the visualized soft tissue structures of the upper abdomen. RAD/Chest PA and Lateral IMPRESSION: Borderline cardiomegaly with hyperexpansion. No acute abnormality. Electronically Signed: Tu Montana MD at 19:53 EDT , Service support , CC: Chris Matute MD; Cody Vanegas DO Wood Chopper: Signed [place] ABS GR + CBC Collected: 03/05/2018 Status: F Source: [place] 12:00 PM [facility] REPOSITORY TYPE CODE TESTS RESULT OUT OF REFERENCE UNITS RANGE LAB WWBC 3.70-11.00 k/uL [place] WBC 5.23 LAB WRBC 3.90-5.20 m/uL [place] RBC 4.12 LAB WHGB 11.5-15.5 g/dL [place] Hemoglobin 13.2 LAB WHCT 36.0-46.0 % [place] Hematocrit 40.7 LAB WMCV 80.0-100.0 fL [place] MCV 98.8 LAB WMCH 26.0-34.0 pg [place] MCH 32.0 LAB WMCHC 30.5-36.0 g/dL [place] MCHC 32.4 LAB WRDW 11.5-15.0 % [place] High RDW 15.2 LAB WPLT 150-400 k/uL [place] Platelet Cnt 352 LAB WMPV 9.0-12.7 fL [place] MPV 9.2 Result Comment: Test performed at: [facility] [place], [address] [place] [address]. LAB ABGRAN 1.45-7.50 k/uL Absol Gran 3.15 Count BNP,B-TYPE NATRIURETIC Collected: 02/28/2018 Status: F Source: [place] 11:17 AM [facility] REPOSITORY TYPE CODE TESTS RESULT OUT OF RANGE REFERENCE UNITS LAB L503.6620 0-100 pg/mL Normal B-TYPE 46.5 LAURO PEP Performed By: #### L503.6620 #### [facility] [address] [place], [address] CARDIOLOGY VISIT Observed: 02/27/2018 Status: F Source: [place] RE[place] 4:52 PM [facility] REPOSITORY [facility] [address] [place] [address] OFFICE VISIT Date of Service: 02/27/18 MR#: [id number] Acct: [id number] Name: KELLIE HUDSON Rep #: [id number] : 1935 Provider: Osvaldo Fischer MD Age/Sex: 82/F Location: [facility] Status: Signed HPI HPI Chief Complaint: Initial visit Details: KELLIE HUDSON, is a 82 F who presents to the office today for an initial visit. She is a lady with no previously documented cardiac history other than shortness of breath etiology which has not been entirely clear. She did undergo a cardiac catheterization approximately 4 years ago which demonstrated preserved ejection fraction of 60% and normal left main coronary artery left anterior descending artery which was noted to be normal circumflex artery which is free of significant disease in the right coronary artery with no significant stenosis. Pulmonary artery systolic pressure was estimated to be 45 mmHg. She subsequently underwent an echocardiographic evaluation in August 2017 demonstrated an ejection fraction of 60-65% and right ventricular systolic pressure of 28 mmHg. She has had no dizziness or diaphoresis no near syncope or syncope. She has been compliant with all her medications. Her physical exam today demonstrates clear lung palacios regular rate and rhythm and no pedal edema her electrocardiogram demonstrates normal sinus rhythm with a rate of 75 bpm and no acute changes. Intake Vital Signs02/27/18 Height 5 ft 3 in Intake Visit Reasons: Transfer from [facility] Allergies amoxicillin Adverse Reaction (Verified 02/27/18 14:14) Upset Stomach atorvastatin [From Lipitor] Adverse Reaction (Verified 02/27/18 14:14) myalgias ciprofloxacin [From Cipro] Adverse Reaction (Verified 02/27/18 14:14) Itching clarithromycin [From Biaxin] Adverse Reaction (Verified 02/27/18 14:14) Vomiting sodium pentothal Adverse Reaction (Uncoded 02/27/18 14:17) nausea Medications albuterol sulfate 2.5 mg/3 mL (0.083 %) solution for nebulization 1.25 mg INHALATION Q4H PRN 02/26/18 [History Confirmed 02/27/18] albuterol sulfate HFA 90 mcg/actuation aerosol inhaler 1 puff INHALATION Q6H PRN 02/26/18 [History Confirmed 02/27/18] calcium phosphate-vitamin D3 250 mg calcium-500 unit chewable tablet tab PO 02/26/18 [History Confirmed 02/27/18] cetirizine 10 mg chewable tablet 10 mg PO DAILY tab 02/26/18 [History Confirmed 02/27/18] cholecalciferol (vitamin D3) 1,000 unit capsule 1,000 unit PO DAILY 02/26/18 [History Confirmed 02/27/18] cholecalciferol (vitamin D3) 50,000 unit capsule 50,000 unit PO .QWEEKS cap 02/26/18 [History Confirmed 02/27/18] docusate sodium 100 mg capsule 100 mg PO DAILY 02/26/18 [History Confirmed 02/27/18] estradiol 0.01% (0.1 mg/gram) vaginal cream 1 g VAGINAL DAILY 02/26/18 [History Confirmed 02/27/18] fluticasone 50 mcg/actuation nasal spray,suspension 1 spray INTRANASAL DAILY 02/26/18 [History Confirmed 02/27/18] guaifenesin ER 600 mg tablet, extended release 12 hr 600 mg PO Q12H PRN 02/26/18 [History Confirmed 02/27/18] hydroxyurea 500 mg capsule 500 mg PO Q OTHER DAY cap 02/26/18 [History Confirmed 02/27/18] ibuprofen 200 mg capsule 200 mg PO TID-QID PRN 02/26/18 [History Confirmed 02/27/18] inulin-chromium picolinate 2 gram-100 mcg chewable tablet tab PO 02/26/18 [History Confirmed 02/27/18] magnesium oxide 500 mg capsule 500 mg PO DAILY cap 02/26/18 [History Confirmed 02/27/18] meclizine 25 mg tablet 12.5 mg PO DAILY PRN tab 02/26/18 [History Confirmed 02/27/18] metoprolol tartrate 25 mg tablet 12.5 mg PO .QD tab 02/26/18 [History Confirmed 02/27/18] ranitidine 75 mg tablet 75 mg PO BID 02/26/18 [History Confirmed 02/27/18] vit C 250 mg-E 200 unit-zinc 40 mg-copper 1 sm-njujkj-ejaxlh capsule 1 tab PO BID 02/26/18 [History Confirmed 02/27/18] zoledronic acid 5 mg/100 mL in mannitol 5 %-water intravenous piggybck mg .ROUTE .Qyear ml 02/26/18 [History Confirmed 02/27/18] coenzyme Q10 100 mg capsule 200 mg PO DAILY cap 02/27/18 [History Confirmed 02/27/18] nitroglycerin 0.2 mg/hr transdermal 24 hour patch 1 patch TRANSDERMAL DAILY PRN 02/27/18 [History Confirmed 02/27/18] [facility] Medical History Pericardial effusion (Chronic) Nonrheumatic tricuspid valve regurgitation (Resolved) Hyperlipidemia (Chronic) Secondary pulmonary arterial hypertension (Resolved) COPD (chronic obstructive pulmonary disease) (Chronic) GERD (gastroesophageal reflux disease) (Chronic) Goiter (Chronic) Hemorrhoids (Chronic) Idiopathic thrombocythemia (Chronic) Macular degeneration (Chronic) Nodule of left lung (Chronic) Osteoarthritis (Chronic) Osteoporosis (Chronic) Pancreatic cyst (Chronic) Vertigo (Chronic) Vitamin D deficiency (Chronic) History of carpal tunnel release (Resolved) Surgical History H/O colectomy (Resolved) H/O shoulder surgery (Resolved) History of left heart catheterization (Resolved 09/22/13) History of right hip replacement (Resolved) History of total left hip replacement (Resolved) Hx of cholecystectomy (Resolved) S/P tendon repair (Resolved) Family History Brother CAD (coronary artery disease) Diabetes Father Diabetes Myocardial infarction Social History Smoking Status: Never smoker alcohol intake: never ROS Const Const: Positive for fatigue; negative for weakness, difficulty sleeping, frequent falls, excessive sweating or headache(s) Eyes Eyes: Negative for loss of peripheral vision, transient loss of vision, blurry vision, tunnel vision or double vision ENT ENT: Negative for headache(s), dizziness, Nosebleed/epistaxis or balance problems Cardio Chest Pain: No Palpitations: No Edema: None Muscle aches with walking: None Additional Details: Prescribed nitro patch PRN. Uses it when she has to exertional activities. Denies chest pain, anginal symptoms are fatigue. Resp Respiratory: Negative for SOB with activity, SOB at rest, SOB orthopnea\SOB lying down, paroxysmal nocturnal dyspnea or Cough Additional Details: Uses O2 at bedtime GI GI: Negative nausea, heartburn, black,tarry stools or vomiting : Negative for hematuria Musc Musc: Negative for balance problems, muscle aches/ myalgia, muscle weakness or joint pain Skin Skin: Negative non-healing lesions, unusual bruising or rash Neuro Neuro: Negative for weakness, frequent falls, headache(s), blurry vision, double vision, dizziness, lightheadedness, orthostatic symptoms, near syncope, syncope or lack of coordination [place] Hematologic/Lymphatic: Negative for easy bruising or easy bleeding Endo Endo: Positive for fatigue; negative for excessive sweating or increased thirst/drinking Psych Psych: Negative for anxiety or depression Allergy Allergy/Immunology: Negative for hives, Negative for rash Cardiology Exam Const Appearance: cooperative, healthy appearing, well developed, well groomed and no acute distress Nutritional Appearance: well nourished and average body habitus Orientation: alert, awake and oriented x3 Head Head: normal to inspection, normocephalic and atraumatic Ears: hearing grossly normal bilaterally and external ears normal Nose: external nose normal, nasal mucous membranes and turbinates normal, nares normal, septum normal, no nasal discharge Face and Sinus: face symmetric Mouth: oral mucosae normal, tongue normal, oropharynx normal and moist mucous membranes Teeth and gingiva: dentition normal Throat: posterior oropharynx normal, tonsils normal and uvula midline Eyes General: appearance normal, both eyes and all related structures Eyelids: eyelids normal Conjunctivae: conjunctivae normal Pupils: PERRL, normal by confrontation and accommodation normal EOM: EOM intact bilaterally Neck Neck: normal visual inspection, trachea midline and no JVD JVD: +5 Carotids: normal carotid upstroke and bounding pulses Chest Chest inspection: normal inspection of the chest, symmetric chest movement and normal respiratory effort Auscultation: Bilateral: Clear to Auscultation Cardio Palpation: normal PMI Rate: regular rate Rhythm: regular rhythm Heart sounds: S1 normal, S2 normal and normal, physiologic split S2; negative rub, gallop or murmur GI GI: normal to inspection, soft, no hepatosplenomegaly and bowel sounds present Neuro General: alert, awake, oriented x3, no focal sensory deficit, gait normal and moves all extremities Skin Skin: no rashes or lesions noted Extremities Pulses: Normal: Right Femoral Pulse, Left Femoral Pulse, Right Dorsalis Pedis Pulse, Left Dorsalis Pedis Pulse, Right Posterior Tibial Pulse, Left Posterior Tibial Pulse, Right Radial Pulse, Left Radial Pulse Lower Extremity Edema: None: Bilateral Musculoskel Musculoskeletal: No joint tenderness Psych Psychological: normal affect Assessment AND Plan Problems 1. Secondary pulmonary arterial hypertension I27.21 Plan She does not appear to have any evidence of pulmonary hypertension her last echocardiogram was reassuring my recommendation at this time will be for us to continue to follow her clinically. I have also asked her to discontinue the metoprolol which she was taking at night for occasional palpitations. She also does not have to use the nitroglycerin patch. Thank you for allowing me to participate in her care and I will see her on a yearly basis. Orders Orders: Plan Detail Follow Up 1 Year (wall taper) Coding Level of Care Code Off vis,new,level 3 Diagnoses Secondary pulmonary arterial hypertension I27.21 Coding Level of Care Code Off vis,new,level 3 Diagnoses Secondary pulmonary arterial hypertension I27.21 02/27/18 1652 <Electronically signed by Osvaldo [place] MD> Date Osvaldo Kruger Signature: Date (if applicable) CC: Cody Vanegas DO; Madai Bonds MD 12 LEAD EKG PERFORMED Observed: 02/27/2018 Status: F Source: [place] BY [place] 2:32 PM [facility] REPOSITORY [facility] [address] [place] [address] 12 Lead EKG performed by [facility] 02/27/18 143 MR#: [id number] Acct: [id number] Name: KELLIE HUDSON Rep #: [id number] : 1935 82 From: Osvaldo Fischer MD Attending Dr: Osvaldo Fischer MD Status: DEP AMB Ordering Dr: Osvaldo Fischer MD Date: 02/27/18 Location: [facility] Sex: F C Admitted: BMS/12 Lead EKG performed by [facility] ECG Report Interpretation Sinus Rhythm WITHIN NORMAL LIMITSElectronically signed on 06/05/2018 at 16:43 by Osvaldo Fischer [employer] Software Version 8610 06/05/18 1646 Date Osvaldo Fischer MD CC: Cody Vanegas DO; Madai Bonds MD Date Dictated: 02/27/181430 Date Transcribed: 02/27/181430 Wood [employer]pper: CO Signed PT D/C SUMMARY (1) Observed: 02/06/2018 Status: F Source: [place] 10:59 AM [facility] REPOSITORY [facility] [place], [place] [address] Fax REHABILITATION SERVICES DISCHARGE SUMMARY MR#: [id number] Acct: [id number] Name: KELLIE HUDSON Rep #: [id number] : 1935 82 From: Zeke Gabriel PT, ATC Referring Dr.: Madai Bonds MD Status: REG RCR Insurance: MEDICARE PART A B COMMERCIAL OTHER HP - PT D/C Summary It has been my pleasure to treat KELLIE HUDSON under orders from Madai Bonds, for the diagnosis of Myalgia for a total of 9 visit(s). Discharge Date: Please see the following information for a summary of their discharge status. - Subjective Subjective: Pain is less today - Pain B arm pain Pain Intensity (Out of 10): 0 - Overall Improvement % Improvement: 25 - Objective Objective/Function: B shoulder pain ranges from 0-5/10. No sleep diff secondary to pain. ROM: L shoulder flex= 135, abd= 83; R shoulder flex= 105, abd= 82 degrees. MMT: B UE's are grossly 4+/5 throughout in available range. Pt is I with HEP. Rx goals achieved - Goals Goal 1:: Decrease B UE pain x 25% to aid with sleep Goal Progress: Goal Met Goal 2:: Increase B UE flex and abd ROM x 30 degrees to aid with overhead activity Goal Progress: Goal Met Goal 3:: Increase B UE strength x 1 grade to aid with IADL's Goal Progress: Goal Met Goal 4:: I with HEP Goal Progress: Goal Met - Plan Plan: Discharge to HEP - D/C Information If there are questions or concerns regarding this patient's physical therapy, please feel free to call me at [phone]. Thank you for the referral of this patient. Sincerely, Zeke Gabriel PT, <Electronically signed by Zeke Gabriel PT, ATC> 02/06/18 1059 CC: Madai Bonds MD [facility] Signed INITAL EVALUATION (1) Observed: 01/09/2018 Status: F Source: [place] - [place] 10:09 AM [facility] REPOSITORY [facility] [place] [address] Fax REHABILITATION SERVICES INITIAL EVALUATION MR#: [id number] Acct: [id number] Name: KELLIE HUDSON Rep #: [id number] : 1935 82 From: Zeke Gabriel PT, ATC Referring Dr.: Madai Bonds MD Status: REG RCR Insurance: MEDICARE PART A B COMMERCIAL OTHER Patient's Visit Information KELLIE HUDSON is a 82 year old F referred to Physical Therapy by Madai Bonds with a diagnosis of Myalgia. Date of Evaluation: 01/09/18 Physical Therapist: Zeke Gabriel, PT, - Visit Plan Frequency: 2x /Week Duration: 4-6 Weeks Plan: B UE strengthening (rot cuff), scap stab ex's, overhead pulleys, UBE, HEP, US - Subjective Subjective: Pt reports she has had B UE pain for several years. Pt reports she was taking Lipitor for a month back then when she began to experience this pain. Pt reports she stopped taking the medications, but the pain never went away. Pt reports the pain has become progressively worse over the past few months. Pt is not sure what she would have palacios to make the pain worse. Pt reports she has sig difficulty with trying to lift her arms over her head. Difficulty with doing her hair as well. Pain on the lateral upper humerus is always present, but she does get occasional pain shooting down her arms which is intermittent. Pt reports minor c/s pain this date. Only Ibuprophen helps to take away her pain. 3/10 pain at rest, 7/10 at worst. Pain is bad at night when she is trying to sleep. Pt reports she has to sleep in a chair. - Pain B arm pain Pain Intensity (Out of 10): 3 Pain Intensity Range: 7 - Objective Neuro: B UE sensation is WNL to light touch. B bicepital reflex= 2/3. Palpation: Pt is mostly sore on the ant aspect of B shoulders near the upper portion of the biceps muscle. ROM: R shoulder flex= 108, abd= 85, ER= 35, IR mod limited; L shoulder flex= 130, abd= 85, ER= 30, IR Mod limited. MMT: B shoulders are grossly 4-/5 throughout in available range of motion. - Goals Goal 1:: Decrease B UE pain x 25% to aid with sleep Goal Time Frame: 4-6 Weeks Goal 2:: Increase B UE flex and abd ROM x 30 degrees to aid with overhead activity Goal Time Frame: 4-6 Weeks Goal 3:: Increase B UE strength x 1 grade to aid with IADL's Goal Time Frame: 4-6 Weeks Goal 4:: I with HEP Goal Time Frame: 4-6 Weeks - Rehabilitation Potential Physical Therapy Diagnosis: Pt has B UE pain, weakness, and limited ROM secondary to deg changes in B shoulders Rehabilitation Potential: Good - Anticipated Interventions Patient/Client Instruction: Educate patient on: Condition, Plan of Care For the Purpose of:: To decrease pain, To increase ROM, To improve muscle performance and motor function Therapeutic Exercise to Include: Strength training, Endurance training, Active ROM, Scapular Strength/Stabilization For the Purpose of:: To decrease pain, To increase ROM, To improve muscle performance and motor function Cryotherapy (ice pack, ice massage): Yes Ultrasound (thermal/non thermal): Yes For the Purpose of:: To decrease pain Thank you for the opportunity to evaluate your patient. For Medicare and Medicare HMO plans, please review the plan of care and approve it. It will need to be FAXED BACK to us at [phone] for Medicare purposes. Please let me know if there are questions or concerns regarding this plan of care. Physician Signature: Date: <Electronically signed by Zeke Gabriel PT, ATC> 01/09/18 1009 CC: Madai Bonds MD [facility] Signed For Medicare only, by signing this I certify the plan of care. Physicians Signature Date ESR Collected: 12/31/2017 Status: F Source: [place] 10:52 AM [facility] REPOSITORY TYPE CODE TESTS RESULT OUT OF REFERENCE UNITS RANGE LAB ESR(LOINC) 0-30 mm/hr Erythrocyte Sed Rate 6 Performed By: #### ESR #### [place] [address] CBC W/DIFF, AUTOMATED Collected: 12/25/2017 Status: F Source: [place] 2:53 PM [facility] REPOSITORY TYPE CODE TESTS RESULT OUT OF RANGE REFERENCE UNITS LAB L100.1000 4.4-11.0 K/mm3 Normal WBC 5.7 LAB L100.1200 4.2-5.4 M/mm3 Normal RBC 4.47 LAB L100.1300 12.0-15.0 g/dl Normal HGB 14.4 LAB L100.1400 37-47 % Normal HCT 43.5 LAB L100.1500 81-99 fL Normal MCV 97.3 LAB L100.1600 27.0-32.0 pg High MCH 32.2 LAB L100.1700 32-36 g/gl Normal MCHC 33.1 LAB L100.1810 11.6-14.6 % Normal RDW CV 14.5 LAB L100.1820 35.1-43.9 fl High RDW SD 50.3 LAB L100.1900 150-450 K/mm3 Normal PLT 387 LAB L100.2000 6.2-12.0 fl Normal MPV 9.8 LAB L100.2100 47-70 % Normal NEUT% 61.0 LAB L100.2200 19-41 % Normal LY% 23.7 LAB L100.2300 0-10 % High MONO% 11.7 LAB L100.2400 0-5 % Normal EO% 2.7 LAB L100.2500 0-1 % Normal BASO% 0.5 LAB L100.2550 0.0-0.9 % Normal IM GRAN % 0.400 Result Comment: IG% - Immature Granulocytes (promyelocytes, myelocytes and metamyelocytes) > 1% indicates that a LEFT SHIFT is Present. LAB L100.2620 2.0-7.7 X10 3/uL Normal Absolute Neut 3.5 LAB L100.2720 0.83-4.51 X10 3/ul Normal Absolute Lymph 1.34 Performed By: #### L100.0100 #### [facility] [address] [place], [address] VITAMIN D,25 HYDROXY Collected: 12/25/2017 Status: F Source: [place] 2:53 PM [facility] REPOSITORY TYPE CODE TESTS RESULT OUT OF RANGE REFERENCE UNITS LAB L506.1000 29.95-100.01 ng/mL Normal Vitamin D 76.6 25-OH Result Comment: Vitamin D 25(OH) Status Range Deficiency <20 ng/mL (50nmol/L) Insuffciency 20 - 30 ng/mL (50 - 75 nmol/L) Sufficiency 30 - 100 ng/mL (75 - 250 nmol/L) Toxicity >100 ng/mL (>250 nmol/L) Performed By: #### L506.1000 #### [facility] [address] [place], [address] CHERI ABS GR + CBC Collected: 12/07/2017 Status: F Source: [place] 10:14 AM [facility] REPOSITORY TYPE CODE TESTS RESULT OUT OF REFERENCE UNITS RANGE LAB WWBC 3.70-11.00 k/uL [place] WBC 4.48 LAB WRBC 3.90-5.20 m/uL [place] RBC 4.31 LAB WHGB 11.5-15.5 g/dL [place] Hemoglobin 13.9 LAB WHCT 36.0-46.0 % [place] Hematocrit 42.9 LAB WMCV 80.0-100.0 fL [place] MCV 99.5 LAB WMCH 26.0-34.0 pg [place] MCH 32.3 LAB WMCHC 30.5-36.0 g/dL [place] MCHC 32.4 LAB WRDW 11.5-15.0 % [place] RDW 14.5 LAB WPLT 150-400 k/uL [place] Platelet Cnt 331 LAB WMPV 9.0-12.7 fL [place] MPV 9.3 Result Comment: Test performed at: [facility] [place], [address] [place] [address]. LAB ABGRAN 1.45-7.50 k/uL Absol Gran 2.51 Count COMP METABOLIC PANEL Collected: 12/03/2017 Status: F Source: [place] 1:50 PM [facility] REPOSITORY TYPE CODE TESTS RESULT OUT OF REFERENCE UNITS RANGE LAB TP(LOINC) 6.3-8.0 g/dL Protein, Total 6.5 LAB ALB(LOINC) 3.9-4.9 g/dL Albumin 3.9 LAB CA(LOINC) 8.5-10.2 mg/dL Calcium, Total 9.8 LAB TBIL(LOINC 0.2-1.3 mg/dL ) Bilirubin, Total 0.3 LAB ALKP(LOINC 32-117 U/L ) Alkaline Phosphatase 76 LAB AST(LOINC) 13-35 U/L AST 22 LAB GLU(LOINC) 74-99 mg/dL Glucose 76 LAB BUN(LOINC) 7-21 mg/dL BUN 16 LAB CRET(LOINC 0.58-0.96 mg/dL ) Creatinine 0.69 LAB NA(LOINC) 136-144 mmol/L Low Sodium 135 LAB K(LOINC) 3.7-5.1 mmol/L Potassium 4.4 LAB CL(LOINC) 97-105 mmol/L Chloride 99 LAB CO2(LOINC) 22-30 mmol/L CO2 23 LAB AGAP(LOINC 9-18 mmol/L ) Anion Gap 13 LAB ALT(LOINC) 7-38 U/L ALT 15 LAB GFRAA(LOIN C) eGFR- >60 Amer. LAB GFRNAA(JOYCE . NC) eGFR-All Other Races >60 Performed By: #### CMP, TSH, FT4 #### [facility] Routine Lab [address] [address] TSH Collected: 12/03/2017 Status: F Source: [place] 1:50 PM [facility] REPOSITORY TYPE CODE TESTS RESULT OUT OF RANGE REFERENCE UNITS LAB TSH(LOINC) 0.400-5.500 uU/mL TSH 3.040 Performed By: #### CMP, TSH, FT4 #### [facility] Routine Lab [address] [place], [place] [address] FREE T4 Collected: 12/03/2017 Status: F Source: [place] 1:50 PM [facility] REFERENCE REPOSITORY TYPE CODE TESTS RESULT OUT OF RANGE REFERENCE UNITS LAB FT4(LOINC) 0.9-1.7 ng/dL Free T4 1.4 Performed By: #### CMP, TSH, FT4 #### [facility] Routine Lab [address] [place], [place] [address] CT ABDOMEN W/ Observed: 11/29/2017 Status: F Source: [place] CONTRAST 11:30 AM [facility] REPOSITORY ORIGINAL CT ABDOMEN W/ CONTRAST This exam was performed according to our departmental dose optimization program, and includes the following measures where applicable: automated exposure control, adjustment of the mAs and/or kVp accord ing to patient size and/or exam, and an iterative reconstruction algorithm. CLINICAL STATEMENT: PANCREATIC CYST. COMPARISON: CT thorax 11/21/2017, CT abdomen pelvis 08/04/2010 FINDINGS: There is confirmation of fluid density lesions involving the pancreatic head and uncinate process. The largest lesion measures 4.8 cm. A 4.4 cm lesion and additional smaller cystic lesions are also identified. These lesions were present in 2010 but have mildly increased in size. The pancreatic duct is not dilated. No intrahepatic biliary dilatation. Incidental: Splenic granulomas. Aortic atherosclerotic disease. Small hiatal hernia. Cholecystectomy. Spinal degenerative changes. IMPRESSION: Multiple cystic lesions of the pancreas measuring up to 4.8 cm, increased in size from 2010. By imaging, these are low risk lesions and follow-up examination in 2 years is recommended unless the patient become symptomatic. Interpreted By: Shweta Haynes Preliminary Report By: Shweta Haynes Electronically Signed By: Shweta Haynes Dictated Date: 11/29/2017 2:09:47 PM Prelim Date: 11/29/2017 2:09:47 PM Sign Date: 11/29/2017 2:24:12 PM CRE Collected: 11/29/2017 Status: F Source: [place] 9:41 AM [facility] REPOSITORY TYPE CODE TESTS RESULT OUT OF REFERENCE UNITS RANGE LAB CRE(LOINC) 0.6-1.2 mg/dL Creatinine Lvl 0.8 (s) Performed By: #### CRE, GFR #### [address] [address] .GFR Collected: 11/29/2017 Status: F Source: [place] 9:41 AM [facility] REPOSITORY TYPE CODE TESTS RESULT OUT OF REFERENCE UNITS RANGE LAB GFRAA(LOINC ml/min/1.73 ) sqm GFR 83 [place] Citizen Result Comment: GFR Population mean for , Non- Americans Ages 20-29 = 116 mL/min/1.73 sq.m. Ages 30-39 = 107 mL/min/1.73 sq.m. Ages 40-49 = 99 mL/min/1.73 sq.m. Ages 50-59 = 93 mL/min/1.73 sq.m. Ages 60-69 = 85 mL/min/1.73 sq.m. Ages 70+ = 75 mL/min/1.73 sq.m. Chronic Kidney Disease: Less than 60 mL/min/1.73 square meters End Stage Renal Disease: Less than 15 mL/min/1.73 square meters LAB GFRNO(LOINC) ml/min/1.73sqm GFR Non- >60 Result Comment: GFR Population mean for , Non- Americans Ages 20-29 = 116 mL/min/1.73 sq.m. Ages 30-39 = 107 mL/min/1.73 sq.m. Ages 40-49 = 99 mL/min/1.73 sq.m. Ages 50-59 = 93 mL/min/1.73 sq.m. Ages 60-69 = 85 mL/min/1.73 sq.m. Ages 70+ = 75 mL/min/1.73 sq.m. Chronic Kidney Disease: Less than 60 mL/min/1.73 square meters End Stage Renal Disease: Less than 15 mL/min/1.73 square meters Performed By: #### CRE, GFR #### [address] [place], [place] [address] CT THORAX W/O Observed: 11/21/2017 Status: F Source: [place] CONTRAST 9:30 AM [facility] ORIGINAL CT THORAX W/O CONTRAST: Multiplanar coronal, sagittal, axial reconstructions were created and reviewed by the radiologist on a separate workstation. This exam was performed according to our departmental dose optimization program, and includes the following measures where applicable: automated exposure control, adjustment of the mAs and/or kVp accord ing to patient size and/or exam, and an iterative reconstruction algorithm. CLINICAL STATEMENT:NODULE OF LEFT LUNG, abnormal chest x-ray, history of skin cancer COMPARISON: Chest radiographs 08/20/2017 through 11/14/2017 FINDINGS: No pathologically enlarged axillary, mediastinal, or hilar lymph nodes are identified. The heart size is within normal limits. Small pericardial fluid is noted. No pericardial thickening is seen. Mild c oronary artery atherosclerosis is noted. The thoracic aorta exhibits mild calcific atherosclerosis. The main pulmonary artery measures up to 3.5 cm. It additional great vessels are of normal course and caliber. The trachea and mainstem bronchi are patent. The visualized esophagus demonstrates a tiny hiatal hernia. The lungs are without pneumothorax, mass, pleural effusion, or focal consolidation. A 4 mm nodule the right upper lobe on image 21, series 4 is noted. A subpleural left lower lobe medial 5 mm nodule is noted on image 59, series 4. There are multiple additional bilateral subpleural 2 to 3 mm nodules. Multilevel degenerative changes are noted of the thoracic spine. There is a mild levocurvature of the thoracolumbar spine. No suspicious osseous lesions are identified. The patient is status post right shoulder arthroplasty. A 1.7 cm posterior left thyroid lobe partially calcified nodule is noted. Bilateral Bochdalek hernias noted, larger on the right. Limited images of the upper abdomen reveals splenic parenchymal granulomas. Large cystic lesions noted near the head of the pancreas and uncinate process of the pancreas. These lesions measure less than 5 Hounsfield units and measures 3.8 and 2.9 cm respectively. IMPRESSION: Bilateral noncalcified pulmonary nodules measuring up to 5 mm. As the patient reports a history of skin cancer, close surveillance is advised . Findings are compatible with pulmonary arterial hypertension. Small pericardial effusion 1.7 cm partially calcified left thyroid lobe nodule. Thyroid ultrasound advised Partially visualized cystic lesions near the head and uncinate process of the pancreas. These lesions could relate to pseudocysts. For complete evaluation and to exclude other pathology, CT abdomen advised. I have personally reviewed the images of this examination and agree with the resident's findings and interpretation. Interpreted By: Prabhjot Singer MD Preliminary Report By: Prabhjot Pereira DO Electronically Signed By: Prabhjot Singer MD Dictated Date: 11/21/2017 10:25:38 AM Prelim Date: 11/21/2017 10:42:00 AM Sign Date: 11/21/2017 11:22:18 AM XR CHEST 2 VIEWS Observed: 11/14/2017 Status: F Source: [place] 9:55 AM [facility] REPOSITORY ORIGINAL XR CHEST 2 VIEWS PA and lateral chest CLINICAL INDICATION: nodule lt lung COMPARISON: 08/20/2017 FINDINGS: The cardiac and mediastinal silhouettes are normal. Atherosclerotic calcifications are present in the aorta. The roni are not enlarged. There is redemonstration of a nodular opacity about 9 mm diameter projecting over the left lower lung on the PA image. It is not localized on the lateral view. No pulmonary infiltrate is seen. Moderate degenerative changes involve the spine. A right humeral head prosthesis is noted. 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 IMPRESSION: Persistent nodular opacity at the left lung base. This is an indeterminate lesion with benign and malignant etiologies possible. Recommend CT chest for further assessment. Interpreted By: Papi Joshua MD Preliminary Report By: Papi Joshua MD Electronically Signed By: Papi Joshua MD Dictated Date: 11/14/2017 10:21:02 AM Prelim Date: 11/14/2017 10:21:02 AM Sign Date: 11/14/2017 10:23:57 AM BASIC METABOLIC PANL Collected: 09/17/2017 Status: F Source: [place] 1:26 PM [facility] REPOSITORY TYPE CODE TESTS RESULT OUT OF REFERENCE UNITS RANGE LAB GLU(LOINC) 74-99 mg/dL Glucose 81 LAB BUN(LOINC) 7-21 mg/dL BUN 17 LAB CRET(LOINC 0.58-0.96 mg/dL ) Creatinine 0.71 LAB NA(LOINC) 136-144 mmol/L Sodium 138 LAB K(LOINC) 3.7-5.1 mmol/L Potassium 4.4 LAB CL(LOINC) 97-105 mmol/L Chloride 101 LAB CO2(LOINC) 22-30 mmol/L CO2 27 LAB AGAP(LOINC 9-18 mmol/L ) Anion Gap 10 LAB CA(LOINC) 8.5-10.2 mg/dL Calcium, Total 10.1 LAB GFRAA(LOIN C) eGFR- >60 Amer. LAB GFRNAA(JOYCE . NC) eGFR-All Other Races >60 Performed By: #### BMP #### [facility] Routine Lab [address] [place], [place] [address] PROGRESS Observed: 09/05/2017 Status: COMPLETED Source: [place] 3:00 PM [facility] REPOSITORY HNO ID: [id number] Author: Maritza Macias Service: (none) Author Type: Physician Type: Progress Notes Filed: 09/06/2017 9:57 AM Note Text: NAME: Kellie [place]. CLINIC NO: [id number]. ATTENDING PHYSICIAN: Maritza Macias MD. ?? DATE OF SERVICE: 09/05/2017. DIAGNOSIS: Essential thrombocytosis. ?? HPI: This is a 81-year-old lady who presented with chronic thrombocytosis. Patient has no history of bleeding disorder or increased bruising. No previous history of thrombotic complications from surgery. Patient has no fever, chills or night sweats. She had no abdominal pain or early satiety. She has a hiatal hernia and occasional epigastric discomfort. ?? Patient had a bone marrow biopsy and the result was consistent with essential thrombocythemia. JAK2 mutation was positive. ?? Interim history:?Patient denies fever, chills or night sweats. Patient has no increased fatigue, pruritus or early satiety. She has no bleeding or bruising. She has no chest pain or shortness of breath. ?She has been having problems with her right wrist since her carpal tunnel surgery. She is receiving cortisone injection with Ortho. All medications AND allergies updated and reviewed by me. ? REVIEW OF SYSTEMS: CONSTITUTIONAL: No fevers, chills, nightsweats, unintended weight loss HEENT: Denies frequent or severe heaches, nasal congestion/sinus symptoms, problematic allergy problems. EYES: No diplopia or blurry vision. CARDIOVASCULAR: No chest pain, dyspnea, palpitations, orthopnea, PND, ankle edema. PULM: No dyspnea, unexplained cough. GI: No dysphagia/odynophagia, problematic reflux, constipation, diarrhea, changes in stool habits, hematochezia, melena. : No new urinary complaints, including dysuria, gross hematuria or pyuria. NEURO: No new balance problems, peripheral weakness/paresthesias or numbness of concern. MUSC-SKEL: No new joint pain, swelling, or erythema. PSY: No concerns regarding depression, anxiety or panic. INTEGUMENTARY: No new skin changes (rash, new or changing mole, new growth) ?? PHYSICAL EXAMINATION: 81-year-old lady in no acute distress Performance status 90% BP 120/57 Pulse 68 Temp (Src) 98.3 (Oral) Wt 152 lb 8 oz (69.2kg) HEENT: Head is normocephalic, atraumatic. Sclerae white, conjunctivae pink. PEERL. EOMs are intact. Oropharynx is benign. LYMPHATICS: There is no palpable adenopathy in the neck, supraclavicular region, axillae, or groin. LUNGS: Lungs are clear to percussion and auscultation. HEART: Heart is normal without murmurs, gallops, or rubs. ABDOMEN: Soft and nontender without organomegaly. No masses can be palpated. No splenomegaly. EXTREMITIES: Are without edema. NEUROLOGIC: Exam is physiologic ?? LABORATORY DATA: Component Latest Ref Rng AND Units 06/06/2017 08/29/2017 WBC, [place] 3.70 - 11.00 k/uL 4.64 5.24 RBC, [place] 3.90 - 5.20 m/uL 4.23 4.32 Hemoglobin, [place] 11.5 - 15.5 g/dL 14.1 14.0 Hematocrit, [place] 36.0 - 46.0 % 42.8 43.0 MCV, [place] 80.0 - 100.0 fL 101.2 (H) 99.5 MCH, [place] 26.0 - 34.0 pg 33.3 32.4 MCHC, [place] 30.5 - 36.0 g/dL 32.9 32.6 RDW, [place] 11.5 - 15.0 % 13.4 14.9 Platelet Cnt, [place] 150 - 400 k/uL 320 313 MPV, [place] 9.0 - 12.7 fL 9.9 9.5 Absol Gran Count 1.45 - 7.50 k/uL 2.52 3.20 Component Latest Ref Rng AND Units 08/29/2017 Protein, Total 6.3 - 8.0 g/dL 6.9 Albumin 3.9 - 4.9 g/dL 3.9 Calcium 8.5 - 10.2 mg/dL 9.6 Bilirubin, Total 0.2 - 1.3 mg/dL 0.4 Alkaline Phosphatase 32 - 117 U/L 81 AST 13 - 35 U/L 21 Glucose 74 - 99 mg/dL 127 (H) BUN 7 - 21 mg/dL 17 Creatinine 0.58 - 0.96 mg/dL 0.72 Sodium 136 - 144 mmol/L 141 Potassium 3.7 - 5.1 mmol/L 4.0 Chloride 97 - 105 mmol/L 102 CO2 22 - 30 mmol/L 28 Anion Gap 9 - 18 mmol/L 11 ALT 7 - 38 U/L 17 eGFR- >60 eGFR-All Other Races . >60 LD 135 - 214 U/L 155 Ferritin 14.7 - 205.1 ng/mL 116.2 ASSESSMENT:?Essential thrombocythemia. Platelet counts is stable on hydroxyurea. She is tolerating treatment except for Macrocytosis secondary to Hydrea resolved. ? PLAN:? Continue Hydrea 500 mg every 48 hours. Monitor CBC every 3 months x 3 Repeat CBC, CMP, LDH, AND?OV in 1 year. Review diet and medications AND?follow-up with PCP for hyperglycemia. ?? Maritza Macias MD ?? Cc: Dr. Madai Alexander III CNOVSP Observed: 09/05/2017 Status: COMPLETED Source: [place] 3:00 PM [facility] REPOSITORY Visit (SP) Office ([place]) KELLIE HUDSON ([id number]) 1935 F Date Time Provider Department 09/05/17 3:00 PM MARITZA MACIAS During your visit today, we recorded the following information about you: Temperature Pulse Blood pressure Weight 98.3 degrees 68/minute 120/57 69.2 kg Maritza Macias MD 09/06/2017 9:57 AM Signed NAME: Kellie [place]. CLINIC NO: [id number]. ATTENDING PHYSICIAN: Maritza Macias MD. ?? DATE OF SERVICE: 09/05/2017. DIAGNOSIS: Essential thrombocytosis. ?? HPI: This is a 81-year-old lady who presented with chronic thrombocytosis. Patient has no history of bleeding disorder or increased bruising. No previous history of thrombotic complications from surgery. Patient has no fever, chills or night sweats. She had no abdominal pain or early satiety. She has a hiatal hernia and occasional epigastric discomfort. ?? Patient had a bone marrow biopsy and the result was consistent with essential thrombocythemia. JAK2 mutation was positive. ?? Interim history:?Patient denies fever, chills or night sweats. Patient has no increased fatigue, pruritus or early satiety. She has no bleeding or bruising. She has no chest pain or shortness of breath. ?She has been having problems with her right wrist since her carpal tunnel surgery. She is receiving cortisone injection with Ortho. All medications ANDamp; allergies updated and reviewed by me. ? REVIEW OF SYSTEMS: CONSTITUTIONAL: No fevers, chills, nightsweats, unintended weight loss HEENT: Denies frequent or severe heaches, nasal congestion/sinus symptoms, problematic allergy problems. EYES: No diplopia or blurry vision. CARDIOVASCULAR: No chest pain, dyspnea, palpitations, orthopnea, PND, ankle edema. PULM: No dyspnea, unexplained cough. GI: No dysphagia/odynophagia, problematic reflux, constipation, diarrhea, changes in stool habits, hematochezia, melena. : No new urinary complaints, including dysuria, gross hematuria or pyuria. NEURO: No new balance problems, peripheral weakness/paresthesias or numbness of concern. MUSC-SKEL: No new joint pain, swelling, or erythema. PSY: No concerns regarding depression, anxiety or panic. INTEGUMENTARY: No new skin changes (rash, new or changing mole, new growth) ?? PHYSICAL EXAMINATION: 81-year-old lady in no acute distress Performance status 90% BP 120/57 Pulse 68 Temp (Src) 98.3 (Oral) Wt 152 lb 8 oz (69.2kg) HEENT: Head is normocephalic, atraumatic. Sclerae white, conjunctivae pink. PEERL. EOMs are intact. Oropharynx is benign. LYMPHATICS: There is no palpable adenopathy in the neck, supraclavicular region, axillae, or groin. LUNGS: Lungs are clear to percussion and auscultation. HEART: Heart is normal without murmurs, gallops, or rubs. ABDOMEN: Soft and nontender without organomegaly. No masses can be palpated. No splenomegaly. EXTREMITIES: Are without edema. NEUROLOGIC: Exam is physiologic ?? LABORATORY DATA: Component Latest Ref Rng ANDamp; Units 06/06/2017 08/29/2017 WBC, [place] 3.70 - 11.00 k/uL 4.64 5.24 RBC, [place] 3.90 - 5.20 m/uL 4.23 4.32 Hemoglobin, [place] 11.5 - 15.5 g/dL 14.1 14.0 Hematocrit, [place] 36.0 - 46.0 % 42.8 43.0 MCV, [place] 80.0 - 100.0 fL 101.2 (H) 99.5 MCH, [place] 26.0 - 34.0 pg 33.3 32.4 MCHC, [place] 30.5 - 36.0 g/dL 32.9 32.6 RDW, [place] 11.5 - 15.0 % 13.4 14.9 Platelet Cnt, [place] 150 - 400 k/uL 320 313 MPV, [place] 9.0 - 12.7 fL 9.9 9.5 Absol Gran Count 1.45 - 7.50 k/uL 2.52 3.20 Component Latest Ref Rng ANDamp; Units 08/29/2017 Protein, Total 6.3 - 8.0 g/dL 6.9 Albumin 3.9 - 4.9 g/dL 3.9 Calcium 8.5 - 10.2 mg/dL 9.6 Bilirubin, Total 0.2 - 1.3 mg/dL 0.4 Alkaline Phosphatase 32 - 117 U/L 81 AST 13 - 35 U/L 21 Glucose 74 - 99 mg/dL 127 (H) BUN 7 - 21 mg/dL 17 Creatinine 0.58 - 0.96 mg/dL 0.72 Sodium 136 - 144 mmol/L 141 Potassium 3.7 - 5.1 mmol/L 4.0 Chloride 97 - 105 mmol/L 102 CO2 22 - 30 mmol/L 28 Anion Gap 9 - 18 mmol/L 11 ALT 7 - 38 U/L 17 eGFR- ANDgt;60 eGFR-All Other Races . ANDgt;60 LD 135 - 214 U/L 155 Ferritin 14.7 - 205.1 ng/mL 116.2 ASSESSMENT:?Essential thrombocythemia. Platelet counts is stable on hydroxyurea. She is tolerating treatment except for Macrocytosis secondary to Hydrea resolved. ? PLAN:? Continue Hydrea 500 mg every 48 hours. Monitor CBC every 3 months x 3 Repeat CBC, CMP, LDH, ANDamp;?OV in 1 year. Review diet and medications ANDamp;?follow-up with PCP for hyperglycemia. ?? Maritza Macias MD ?? Cc: Dr. Madai Alexander III Referring Provider: [place]ZA [place]AS [[id number]] Allergies As of Date: 09/05/2017 Noted Allergy Reaction CIPROFLOXACIN 08/29/2010 2 - Rash Comments: Itching and rash AMOXICILLIN 07/07/2008 8 - GI Upset BIAXIN (CLARITHROMYCIN) 06/07/2009 8 - GI Upset SODIUM PENTATHAL (THIOPENTAL) 08/29/2010 8 - GI Upset Comments: Heavy vomiting Date Reviewed: 09/05/2017 Reviewed by: Shira Calles - Fully Assessed Reason for Visit: Established Patient [[id number]] Primary Visit Diagnosis:Essential thrombocytosis (HCC) [D47.3] Level of Service: EST PATIENT VISIT LEVEL 3 [36606] Disposition: Return in about 1 year (around 09/05/2018). Follow-up and Disposition History Recorded Prescriptions as of 09/05/2017 Sig: BETAMETHASONE DIPROPIONATE 0.* Apply 1 application to affect* HYDROXYUREA 500 MG CAPSULE Take 1 capsule by mouth every* METOPROLOL SUCCINATE ER 25 MG* Take 1/2 tablet by mouth once* MAGNESIUM OXIDE 500 MG TABLET Take 500 mg by mouth once marie* COENZYME Q10 10 MG CAPSULE Take by mouth twice daily. FIBER SELECT GUMMIES ORAL Take 2 capsules by mouth once* DOCUSATE SODIUM 100 MG CAPSULE Take 100 mg by mouth three ti* OXYGEN-AIR DELIVERY SYSTEMS M* 2 L at bedtime as needed. ERGOCALCIFEROL (VITAMIN D2) 5* Take one capsule every two we* CITRACAL ORAL Take 4 tablets by mouth once * RECLAST INTRAVEN. Inject intravenously. Yearly* CHOLECALCIFEROL (VITAMIN D3) * Take 1,000 Units by mouth onc* * PROAIR HFA 90 MCG/ACTUATION A* Inhale 2 Puffs as instructed * * AQUAPHOR TOPICAL Apply to affected area. as n* * POLYSPORIN TOPICAL Apply to affected area. as n* * PRESERVISION AREDS 7,160 UNIT* Take two tablets daily. * FLUTICASONE 50 MCG/ACTUATION * Two sprays in each nostril tw* GUMMI BEAR MULTIVITAMIN ORAL Take 1 Each by mouth twice da* MOMETASONE 0.1 % TOPICAL CREAM Apply to itching eczema derma* DESONIDE 0.05 % TOPICAL OINTM* Apply to affected area(s) thr* CLOBETASOL 0.05 % SCALP SOLUT* Apply to active spots of itch* MUPIROCIN 2 % TOPICAL OINTMENT Apply to wound and/or infecte* Problem List As Of Date 09/05/2017 Noted Resolved LICHEN SCLEROSIS///CIRCUMSCRIBE SCLERODERMA [L9*INVALID FOR* Scar condition and fibrosis of skin [L90.5] INVALID FOR*11/10/2012 Dyschromia, unspecified [L81.9] INVALID FOR*11/03/2011 Seborrheic Keratosis [L82.1] INVALID FOR* ACTINIC DAMAGE///CHR SOLAR SKIN DAMAGE NOS [L57*INVALID FOR*11/03/2011 SOLAR LENTIGINES///DYSCHROMIA OTHER [L81.9] INVALID FOR*11/03/2011 Neoplasm of uncertain behavior of skin [D48.5] INVALID FOR*11/03/2011 Other and unspecified malignant neoplasm of ski*INVALID FOR*11/10/2012 BCC (Basal Cell Carcinoma), Face [C44.310] INVALID FOR* Open wound site NOS [T14.8XXA] INVALID FOR*11/03/2011 H/O Malignant Neoplasm of Skin: L cheek face: B*INVALID FOR* Foreign Body Granuloma of Skin: Acne type [L92.*INVALID FOR* 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 FOR* Skin tags INVALID FOR*11/10/2012 Melanocytic nevus of trunk: occasional intrader*INVALID FOR* Vernon angiomas [D18.01] INVALID FOR* Actinic Keratosis: Premalignant AK [L57.0] INVALID FOR* Irritated//Inflamed Seborrheic Keratosis [L82.0]INVALID FOR* Eczematous dermatitis [L30.9] INVALID FOR* Pseudofolliculitis [L73.8] INVALID FOR* Lichenified eczema [L28.0] INVALID FOR* Surgical Scars [L90.5] INVALID FOR* Solar Lentigines [L81.4] INVALID FOR* Actinic skin damage [L57.8] INVALID FOR* Xerosis cutis [L85.3] INVALID FOR* 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] INVALID FOR* 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] INVALID FOR* Lichen sclerosus et atrophicus of the vulva [N9*INVALID FOR* Neurodermatitis [L28.0] INVALID FOR* Skin tag [L91.8] INVALID FOR* Folliculitis [L73.9] INVALID FOR* Excoriation [T14.8XXA] INVALID FOR* Pyoderma, unspecified [L08.0] INVALID FOR* 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] INVALID FOR* Open wound of unspecified site (L mid ant lower*INVALID FOR* 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] INVALID FOR* Pruritus [L29.9] INVALID FOR* Viral warts, unspecified [B07.9] INVALID FOR* Lichenification and lichen simplex chronicus [L*INVALID FOR* Contact dermatitis and other eczema, due to uns*INVALID FOR* Other and unspecified superficial injury of oth*INVALID FOR* Other specified disease of hair and hair follic*INVALID FOR* LSC (lichen simplex chronicus) [L28.0] INVALID FOR* Encounter Status:Closed by MARITZA MACIAS MD on 09/06/17 [place] ABS GR + CBC Collected: 08/29/2017 Status: F Source: [place] 9:57 AM [facility] REPOSITORY TYPE CODE TESTS RESULT OUT OF REFERENCE UNITS RANGE LAB WWBC 3.70-11.00 k/uL [place] WBC 5.24 LAB WRBC 3.90-5.20 m/uL [place] RBC 4.32 LAB WHGB 11.5-15.5 g/dL [place] Hemoglobin 14.0 LAB WHCT 36.0-46.0 % [place] Hematocrit 43.0 LAB WMCV 80.0-100.0 fL [place] MCV 99.5 LAB WMCH 26.0-34.0 pg [place] MCH 32.4 LAB WMCHC 30.5-36.0 g/dL [place] MCHC 32.6 LAB WRDW 11.5-15.0 % [place] RDW 14.9 LAB WPLT 150-400 k/uL [place] Platelet Cnt 313 LAB WMPV 9.0-12.7 fL [place] MPV 9.5 Result Comment: Test performed at: [facility], [address] [place] [address]. LAB ABGRAN 1.45-7.50 k/uL Absol Gran 3.20 Count LD Collected: 08/29/2017 Status: F Source: [facility] 9:57 AM [facility] REPOSITORY TYPE CODE TESTS RESULT OUT OF RANGE REFERENCE UNITS LAB LD 135-214 U/L LD 155 Performed By: #### LD6, CMP, FERR #### [facility] [address] [place] [id number] COMP METABOLIC PANEL Collected: 08/29/2017 Status: F Source: [place] 9:57 AM [facility] REPOSITORY TYPE CODE TESTS RESULT OUT OF REFERENCE UNITS RANGE LAB TP 6.3-8.0 g/dL Protein, Total 6.9 LAB ALB 3.9-4.9 g/dL Albumin 3.9 LAB CA 8.5-10.2 mg/dL Calcium, Total 9.6 LAB TBIL 0.2-1.3 mg/dL Bilirubin, Total 0.4 LAB ALKP 32-117 U/L Alkaline Phosphatase 81 LAB AST 13-35 U/L AST 21 LAB GLU 74-99 mg/dL Glucose High 127 Result Comment: The [place] Diabetes Association (ADA) provides guidance for cutoff values for fasting glucose and random glucose. The ADA defines fasting as no caloric intake for at least 8 hours. Fas ting plasma glucose results between 100 to 125 mg/dL indicate increased risk for diabetes (prediabetes). Fasting plasma glucose results greater than or equal to 126 mg/dL meet the criteria for diagnosis of diabetes. In the absence of unequivocal hyperglycemia, results should be confirmed by repeat testing. In a patient with classic symptoms of hyperglycemia or hyperglycemic crisis, random plasma glucose results greater than or equal to 200 mg/dL meet the criteria for diagnosis of diabetes. Reference: Standards of Medical Care in Diabetes 2016, [place] Diabetes Association. Diabetes Care. 2016.39(Suppl 1). LAB BUN 7-21 mg/dL BUN 17 LAB CRET 0.58-0.96 mg/dL Creatinine 0.72 LAB NA 136-144 mmol/L Sodium 141 LAB K 3.7-5.1 mmol/L Potassium 4.0 LAB CL 97-105 mmol/L Chloride 102 LAB CO2 22-30 mmol/L CO2 28 LAB AGAP 9-18 mmol/L Anion Gap 11 LAB ALT 7-38 U/L ALT 17 LAB GFRAA eGFR- Amer. >60 LAB GFRNAA . eGFR-All Other Races >60 Result Comment: eGFR (Estimated GFR) Units of measure: mL/min/1.73 meters squared eGFR is derived from the reexpressed MDRD Study equation using the following parameters: serum creatinine, age, gender and race. The creatinine assay has been calibrated to be traceable to IDMS. An eGFR <60 mL/min/1.73m2 for >3 months is consistent with chronic kidney disease. Refer to KDOQI guidelines for clinical interpretation. In patients with unstable renal function, e.g. those with acute kidney injury, the eGFR may not accurately reflect actual GFR. Performed By: #### LD6, CMP, FERR #### [facility] [employer] [address] [place], [place] [address] FERRITIN Collected: 08/29/2017 Status: F Source: [place] 9:57 AM [facility] REPOSITORY TYPE CODE TESTS RESULT OUT OF REFERENCE UNITS RANGE LAB FERR 14.7-205.1 ng/mL Ferritin 116.2 Performed By: #### LD6, CMP, FERR #### [facility] [employer] [address] [place], [place] [address] XR ABDOMEN AP Observed: 08/20/2017 Status: F Source: [place] 3:37 PM [facility] REPOSITORY ORIGINAL XR ABDOMEN AP CLINICAL STATEMENT: sob, epigastric pain COMPARISON: None FINDINGS:Nonspecific fecal content and gas pattern is present. There is gaseous distention of the stomach. Small hiatal hernia is suspected. Postsurgical changes in the right upper quadrant are noted. T here are bilateral hip prostheses present. There are diffuse degenerative changes in the spine. Asymmetric elevation of the left hemidiaphragm with suboptimal visualization of the dome of the hemidiaphr agm is noted. Correlation with the patient's plain films from 08/20/2017 is noted. Today's examination was performed as a supine examination comprising evaluation of free air. Further evaluation of this patient with CT is suggested to exclude the presence of free air if of concern IMPRESSION:Nonspecific bowel gas pattern. Single supine exam does not adequately evaluate for free air with limited inclusion of the left lung base. If symptoms persist, CT should be considered Interpreted By: Liat Kelly MD Preliminary Report By: Liat Kelly MD Electronically Signed By: Liat Kelly MD Dictated Date: 08/20/2017 4:05:21 PM Prelim Date: 08/20/2017 4:05:21 PM Sign Date: 08/20/2017 4:07:03 PM XR CHEST 2 VIEWS Observed: 08/20/2017 Status: F Source: [facility] 3:37 PM [facility] REPOSITORY ORIGINAL XR CHEST 2 VIEWS CLINICAL STATEMENT: sob, epigastric pain COMPARISON: 07/06/2012 FINDINGS:Cardiac contours are normal. There is coarsening of the lung markings present in both hemithoraces. Concern is raised of a nodular density overlying the anterior left fifth rib on today's exam not appreciated on the prior films. This may represent summation artifact but requires further evaluation. No free air under the hemidiaphragm is confirmed with a stable configuration to the gastric air when compared to remote films from 2013. Coarsened lung markings are noted. Right humeral head prosthesis is present. Remote traumatic changes on the left are noted. IMPRESSION:Possible nodular density left lung. Recommend further investigation. Interpreted By: Liat Kelly MD Preliminary Report By: Liat Kelly MD Electronically Signed By: Liat Kelly MD Dictated Date: 08/20/2017 4:08:52 PM Prelim Date: 08/20/2017 4:08:52 PM Sign Date: 08/20/2017 4:10:05 PM VITAMIN D 25 HYDROXY Collected: 08/06/2017 Status: F Source: [place] 10:25 AM [facility] REPOSITORY TYPE CODE TESTS RESULT OUT OF REFERENCE UNITS RANGE LAB VITD(LOINC) 31.0-80.0 ng/mL High Vitamin D 25 83.2 Hydroxy Performed By: #### VITD, CMP, MG1, TSH #### [facility] Routine Lab [address] [place] [address] COMP METABOLIC PANEL Collected: 08/06/2017 Status: F Source: [place] 10:25 AM [facility] REPOSITORY TYPE CODE TESTS RESULT OUT OF REFERENCE UNITS RANGE LAB TP(LOINC) 6.3-8.0 g/dL Protein, Total 6.8 LAB ALB(LOINC) 3.9-4.9 g/dL Albumin 4.0 LAB CA(LOINC) 8.5-10.2 mg/dL Calcium, Total 9.5 LAB TBIL(LOINC 0.2-1.3 mg/dL ) Bilirubin, Total 0.3 LAB ALKP(LOINC 32-117 U/L ) Alkaline Phosphatase 79 LAB AST(LOINC) 13-35 U/L AST 26 LAB GLU(LOINC) 74-99 mg/dL Low Glucose 70 LAB BUN(LOINC) 7-21 mg/dL BUN 18 LAB CRET(LOINC 0.58-0.96 mg/dL ) Creatinine 0.75 LAB NA(LOINC) 136-144 mmol/L Sodium 138 LAB K(LOINC) 3.7-5.1 mmol/L Potassium 4.3 LAB CL(LOINC) 97-105 mmol/L Chloride 98 LAB CO2(LOINC) 22-30 mmol/L CO2 25 LAB AGAP(LOINC 9-18 mmol/L ) Anion Gap 15 LAB ALT(LOINC) 7-38 U/L ALT 25 LAB GFRAA(LOIN C) eGFR- >60 Amer. LAB GFRNAA(JOYCE . NC) eGFR-All Other Races >60 Performed By: #### VITD, CMP, MG1, TSH #### [facility] Routine Lab [address] [place] [address] MAGNESIUM Collected: 08/06/2017 Status: F Source: [place] 10:25 AM [facility] REPOSITORY TYPE CODE TESTS RESULT OUT OF REFERENCE UNITS RANGE LAB MG(LOINC) 1.7-2.3 mg/dL Magnesium 2.3 Performed By: #### VITD, CMP, MG1, TSH #### [facility] Routine Lab [address] [place] [address] TSH Collected: 08/06/2017 Status: F Source: [place] 10:25 AM [facility] REPOSITORY TYPE CODE TESTS RESULT OUT OF RANGE REFERENCE UNITS LAB TSH(LOINC) 0.400-5.500 uU/mL TSH 3.980 Performed By: #### VITD, CMP, MG1, TSH #### [facility] Routine Lab [address] [place] [address] VITAMIN D 25 HYDROXY Collected: 12/27/2016 Status: F Source: [place] 10:06 AM [facility] REPOSITORY TYPE CODE TESTS RESULT OUT OF REFERENCE UNITS RANGE LAB VITD(LOINC) 31.0-80.0 ng/mL Vitamin D 25 63.7 Hydroxy Performed By: #### VITD, CMP, TSH, FREET3, FT4 #### [facility] Routine Lab [address] [place], [place] [address] COMP METABOLIC PANEL Collected: 12/27/2016 Status: F Source: [place] 10:06 AM [facility]IC REFERENCE REPOSITORY TYPE CODE TESTS RESULT OUT OF REFERENCE UNITS RANGE LAB TP(LOINC) 6.3-8.0 g/dL Protein, Total 6.6 LAB ALB(LOINC) 3.9-4.9 g/dL Albumin 3.9 LAB CA(LOINC) 8.5-10.2 mg/dL Calcium, Total 8.9 LAB TBIL(LOINC 0.2-1.3 mg/dL ) Bilirubin, Total 0.3 LAB ALKP(LOINC 32-117 U/L ) Alkaline Phosphatase 83 LAB AST(LOINC) 13-35 U/L AST 25 LAB GLU(LOINC) 74-99 mg/dL Low Glucose 63 LAB BUN(LOINC) 7-21 mg/dL BUN 14 LAB CRET(LOINC 0.58-0.96 mg/dL ) Creatinine 0.67 LAB NA(LOINC) 136-144 mmol/L Sodium 140 LAB K(LOINC) 3.7-5.1 mmol/L Potassium 4.1 LAB CL(LOINC) 97-105 mmol/L Chloride 103 LAB CO2(LOINC) 22-30 mmol/L CO2 23 LAB AGAP(LOINC 9-18 mmol/L ) Anion Gap 14 LAB ALT(LOINC) 7-38 U/L ALT 17 LAB GFRAA(LOIN C) eGFR- >60 Amer. LAB GFRNAA(JOYCE . NC) eGFR-All Other Races >60 Performed By: #### VITD, CMP, TSH, FREET3, FT4 #### [facility] Routine Lab [address] [place], [place] [address] TSH Collected: 12/27/2016 Status: F Source: [place] 10:06 AM [facility] REPOSITORY TYPE CODE TESTS RESULT OUT OF RANGE REFERENCE UNITS LAB TSH(LOINC) 0.400-5.500 uU/mL TSH 3.170 Performed By: #### VITD, CMP, TSH, FREET3, FT4 #### [facility] Routine Lab [address] [place], [place] [address] FREE T3 Collected: 12/27/2016 Status: F Source: [place] 10:06 AM CL[facility]IC RE[facility]ENCE REPOSITORY TYPE CODE TESTS RESULT OUT OF RANGE REFERENCE UNITS LAB FREET3(LOIN 2.3-4.1 pg/mL C) Free T3 2.6 Performed By: #### VITD, CMP, TSH, FREET3, FT4 #### [facility] Routine Lab [address] [place], [place] [id number] FREE T4 Collected: 12/27/2016 Status: F Source: [place] 10:06 AM [facility] REPOSITORY TYPE CODE TESTS RESULT OUT OF RANGE REFERENCE UNITS LAB FT4(LOINC) 0.9-1.7 ng/dL Free T4 1.3 Performed By: #### VITD, CMP, TSH, FREET3, FT4 #### [facility] Routine Lab [address] [place], [place] [address] ALLERGIES ALLERGIES DATE TYPE / CODE NAME / CODE REACTION SEVERITY SOURCE Drug ciprofloxacin/F0060 Itching Unknown [place] 8 Allergy/[id number]( [address](RXNORM) [facility] SN[facility] Hospital Repository Drug clarithromycin/F006 Vomiting Unknown [place] 8 Allergy/676201496( 125860(RXNORM) [facility] Hospital Repository Drug amoxicillin/B187250 Upset Stomach Unknown [place] 8 Allergy/000941446( 675(RXNORM) [facility] Hospital Repository Drug atorvastatin/U55133 MYALGIAS Unknown [place] 8 Allergy/812568019( 6321(RXNORM) [facility] Hospital Repository Miscellaneous sodium pentothal Nausea Unknown [place] 8 Allergy/257790618( [facility] Hospital Repository DRUG CIPROFLOXACIN RASH [place] 1 INGREDI/407953799( [facility] SNOMED CT) [place] Repository DRUG THIOPENTAL GI UPSET [place] INGREDI/745660069( [facility] SNOM[facility]) [place] [facility] DRUG CLARITHROMYCIN GI UPSET [facility] 9 INGREDI/567174926( [facility] SNOMED CT) [place] Repository DRUG AMOXICILLIN GI UPSET [facility] 9 INGREDI/442309736( [facility] Main SNOMED CT) [place] Repository ENCOUNTERS ENCOUNTERS ADMIT/DISCHARGE ACCOUNT NUMBER ADMITTING ENCOUNTER LOCATION SOURCE CLASS 07/26/2018 [id number] Ambulatory [facility] ding:PT Repository 07/18/2018 [id number] Ambulatory [facility] ding:[facility] Repository 07/16/2018/07/16/19 [id number] Ambulatory [address] Repository 06/19/2018 [id number] [facility]patient [facility] Repository ng:H.SDRoom: 5B524 06/05/2018 [id number] Ambulatory [facility] Repository ng:H.PAT 06/04/2018/06/05/20 [id number] Ambulatory [address] Repository 05/21/2018/05/21/20 [id number] Ambulatory BBuilding:RA Nayak [address] [place] [address] Repository 04/20/2018/04/20/20 [id number] Emergency [address] ding:ED Repository 03/13/2018 [id number] Ambulatory BMSBuilding: Cheri BMS.[facility] Repository 03/05/2018/03/05/20 [id number] Ambulatory [address] Repository 02/28/2018 [id number] Ambulatory [facility] ding:LAB Repository 02/27/2018/02/28/20 [id number] Ambulatory BMSBuilding: Cheri 18 BMS.[facility] Repository 02/26/2018 [id number] Ambulatory BMSBuilding: [place] BMS.[facility] Repository 02/06/2018/02/07/20 [id number] Ambulatory [address] ding:PT Repository 12/31/2017/01/05/20 [id number] Ambulatory [address] ding:[facility] Foundation Repository 12/25/2017 [id number] Ambulatory [facility] ding:POLAB3 Repository 12/07/2017/12/08/19 [id number] Ambulatory [address] Repository 11/29/2017/11/30/19 [id number] Ambulatory JAZIEL Jaziel [address] [place] [address] ding:RAD [facility] Repository 11/21/2017/11/22/19 [id number] Ambulatory JAZIEL Jaziel [address] [place] [address] ding:[facility] Repository 11/14/2017/11/15/19 [id number] Ambulatory JAZIEL Jaziel [address] [place] [address] ding:[facility] Repository 09/05/2017/09/07/19 [id number] Ambulatory [address] Repository 08/29/2017/08/31/19 [id number] Ambulatory [address] Repository 08/28/2017/08/28/19 [id number] Ambulatory JAZIEL Jaziel [address] [place] [address] ding:RAD [facility] Repository 08/20/2017/08/20/19 [id number] Ambulatory JAZIEL Jaziel [address] [place] [address] ding:[facility] Repository PAYERS PAYERS ENCOUNTER GUARANTOR PAYER SUBSCRIBER SOURCE 07/26/2018 REINALDO [id number] Primary KELLIE Alonzo JT BRINK, Insurance:MEDICARE KICKDOB: [facility] [address]Nzl: PART A [facility] [id number] Hospital Number: Repository () [id number] Date:2000-08-30 07/26/2018 Secondary KELLIE L Cheri Insurance:GOVT KICKDOB: [facility]ly [facility] PERSONNEL [employer] [id number] Hospital INSPolicy Number: Repository [id number] Date:9288-72-63[address], [place] [address]GO: 07/26/2018 Tertiary NOT GIVENUNK [place] Insurance:SELF PAY [facility] Number: Effective Repository Date:2018-06-06 07/18/2018 REINALDO [id number] Primary KELLIE [place] KEENA, Insurance:MEDICARE KICKDOB: [facility] [address]Mrw: PART A [facility] [id number] Hospital Number: Repository () [id number] Date:2018-07-18 07/18/2018 Secondary KELLIE L Cheri [facility] PERSONNEL [facility] [id number] [facility] INSPolicy Number: Repository [id number] Date:7606-13-15[address], [place] [address]UZ: 07/18/2018 [facility] Cheri Insurance:SELF PAY [facility] Number: Effective Repository Date:2018-07-18 06/19/2018 KELLIE L Primary KELLIE L Kavitha [facility] Insurance:MEDICAREPol KICKUNK [place] icy Number: Repository [id number]: 330 [id number] [phone] (HP) Date:2000-08-30[address]JGLY CODE [place]699[place]M, [place] [address]UB: 06/19/2018 Secondary KELLIEANTWAN [facility] Insurance:ENTER NAME [facility] Repository Number: [id number] Date:7793-97-03RL [address], [place] [address]RK: 06/05/2018 KELLIE L Primary KELLIE L [facility] Insurance:MEDICAREPol KICKUNK [place] icy Number: Repository [id number]: 330 [id number] [phone] (HP) Date:[address]AGBW CODE QB238AIOAFPQA, [place] [address]TE: 06/05/2018 Secondary KELLIEANTWAN [facility] Insurance:ENTER NAME [facility] Repository Number: [id number] Date:[address], [place] [address]TL: 05/21/2018 KELLIE L [facility]ICARE KICKDOB: [facility] [id number] PART B [facility]IAL HEALTH SYSTEMolicy [id number] Repository JT RBINK, Number: [place] [address]Dct: [id number] [place] Date:2018-05-15 [address]11[address]Egr: (330) (HP) [id number] Name:PAT ()Tel: (000) Administrators LLCPO 000-0000 (WP) [address] [place] [address]VZ: 05/21/2018 Secondary KELLIEANTWAN [facility] Insurance:[facility] KICKDOB: [facility] INSURANCE SECONDARY [id number] Repository INSCOPolicy Number: [address] [place] [id number] [place] Date:2018-05-15 [address]Idv: (330 [id number] Name:ABIMBOLA [place]OOLE ()Tel: (000) [place], [place] 000-0000 (WP) [address]J: 04/20/2018 REINALDO [id number] Primary KELLIE Morelgregg BRINK, Insurance:MEDICARE [facility]: [facility] [address]Nyv: PART A [facility] [id number] Hospital Number: Repository () [id number] Date:2018-04-20 04/20/2018 Secondary KELLIE L Cheri Insurance:[facility]: [facility] PERSONNEL [employer] [id number] Hospital INSPolicy Number: Repository [id number] Date:7922-62-19[address], [place] [address]MY: 04/20/2018 Tertiary NOT GIVENUNK [place] Insurance:SELF PAY [facility] Number: Effective Repository Date:2018-04-20 03/13/2018 REINALDO [id number] Primary KELLIE Alonzo JT BRINK, Insurance:MEDICARE CKDOB: [facility] [address]Izu: PART A [place] [id number] Number: Repository () [id number] Date:2018-02-20 03/13/2018 Secondary KELLIE L [place] Insurance:GOVT KICKDOB: Community [employer]EL [employer] [address] [place] [address] INSPolicy Number: Repository [id number] Date:7030-49-31[address], [place] [address]RB: 03/13/2018 Tertiary NOT GIVENUNK [place] Insurance:SELF PAY [facility] Number: Effective Repository Date:2018-02-20 02/28/2018 REINALDO [id number] Primary KELLIE [place] JEANCORINE, Insurance:MEDICARE KICKDOB: [place] [address]Wjb: PART A [address] Number: Repository () [id number] Date:2018-02-28 02/28/2018 Secondary KELLIE L [place] Insurance:GOVT KICKDOB: [facility]ly [facility] PERSONNEL [employer] [id number] INSPolicy Number: Repository [id number] Date:2011-40-33[address], [place] [address]RK: 02/28/2018 Tertiary NOT GIVENUNK [place] Insurance:SELF PAY [facility] Number: Effective Repository Date:2018-02-28 02/27/2018 REINALDO [id number] Primary KELLIE [place] KEENA, Insurance:MEDICARE KICKDOB: [place] [address]Ijd: PART A [address] Number: Repository () [id number] Date:2018-02-22 02/27/2018 Secondary KELLIE L Cheri Insurance:GOVT KICKDOB: Community [employer]EL [employer] [id number] INSPolicy Number: Repository [id number] Date:2762-46-99[address], [place] [address]LN: 02/27/2018 Tertiary NOT GIVENUNK [place] Insurance:SELF PAY [facility] Number: Effective Repository Date:2018-02-27 02/26/2018 REINALDO [id number] Primary KELLIE [place] JEANCORINE, Insurance:MEDICARE KICKDOB: [facility] [place] [address]Bgh: PART A [facility] [id number] Hospital Number: Repository () [id number] Date:2018-02-26 02/26/2018 Secondary KELLIE L [place] Insurance:GOVT KICKDOB: Community [employer] [id number] Hospital INSPolicy Number: Repository [id number] Date:9648-19-50[address], [place] [address]NW: 02/26/2018 Tertiary NOT GIVENUNK [place] Insurance:SELF PAY [facility] Number: Effective Repository Date:2018-02-26 02/06/2018 Reinaldo [place]4168 Primary KELLIE [place], Insurance:MEDICARE [facility]: [facility] [address]Ozd: PART A [facility] [id number] Hospital Number: Repository () [id number] Date:2018-01-08 02/06/2018 Secondary KELLIE L [place] Insurance:GOVT KICKDOB: [facility]ly [facility] P[employer]NEL [employer] [id number] Hospital INSPolicy Number: Repository [id number] Date:5770-02-85[address] [address]YG: 02/06/2018 Tertiary NOT GIVENUNK [place] Insurance:SELF PAY [facility] Number: Effective Repository Date:2018-01-08 12/31/2017 KELLIE L Primary KELLIE Funes [facility]: Insurance:MEDICARE CKDOB: [facility] [id number] PART BPolicy Number: [id number] Repository JT BRINK, [id number] 8 [facility] [id number]: Date:2017-12-31 - [place] 8690-33-75Deje [address]Nky: (330) (HP) Name:[facility] [address] [facility] LLCPO ()Tel: (000) [address]Kagypxsje, 000-0000 (WP) [place] [address]NQ: 12/31/2017 Secondary KELLIE [facility] Insurance:[facility] KICKDOB: [facility] INSURANCE [id number] Repository [facility]Pol[facility] [address] Number: BETTY BRINK [id number] [phone]: (330) Date:2017-12-31 [phone] ()Tel: (000) Name: [address] ([address]) [address], [place] [address]WU: 12/25/2017 Reinaldo [place]4168 Primary KELLIE L Cheri Jt Brink, Insurance:MEDICARE KICKDOB: [facility] [place] [address]Jhr: PART A BPolic [id number] Hospital Number: Repository () [id number] Date:2017-12-25 12/25/2017 Secondary KELLIE L [place] Insurance:[facility]: Formerly [facility] PERSONNEL [employer] [id number] Hospital INSPolicy Number: Repository [id number] Date:5863-02-68[address] [address]BW: 12/25/2017 Tertiary NOT GIVENUNK [place] Insurance:SELF PAY [facility] Number: Effective Repository Date:2017-12-25 11/29/2017 KELLIE L Primary KELLIE [facility]unes [facility] Insurance:MEDICARE KICKDOB: [facility] PART BPolicy Number: [id number] Repository JT JEANCORINE, [id number] [address] [place] [address]Bdj: Date:2017-11-27 - [place] [id number] [address]Oci: (330) (HP) Name:[facility] [phone] Administrators LLCPO (HP)Tel: (000) [address]Pnwhmqxhk, 000-0000 (WP) [place] [address]TJ: 11/29/2017 Secondary KELLIE N[facility] Insurance:[facility] Foundation INSURANCE [id number] Repository SECONDARYPolicy [address] Number: MAGDALENACORINE BETTY [id number]: (330) Date:2017-11-272170-92-09Rkbd ()Tel: (000) Name:CP [address] (WP) [address], [place] [address]AM: 11/21/2017 KELLIE L Primary [facility] CenterB: Insurance:MEDICARE KICKDOB: [facility] PART BPolicy Number: [id number] Repository [place] JEANCORINE [id number] [address] [place] [address]Qio: Date:2017-11-16 - BETTY BRINK [id number] [address]Qtv: (330) (HP) Name:[facility] Johnnie-Emmy0 Administrators LLCPO (HP)Tel: (000) [address]Pjebnhtca, 000-0000 (WP) [place] [address]XH: 11/21/2017 Secondary KELLIE N[facility]ak [facility] Insurance:[facility] CAMPUSDOB: Foundation INSURANCE [id number] Repository SECONDARYPolicy [address] Number: MATYNEYDA BETTY [id number] [address]Aak: (330) Date:2017-11-165443-07-54Retv ()Tel: (000) Name:CP [address] (WP) [address], [place] [address]WT: 11/14/2017 KELLIE L Primary KE[facility]IE [facility]Baptist Medical CenterB: Insurance:MEDICARE [facility]OB: [facility] PART BPolicy Number: [id number] Repository JT BRINK, [id number] [address] [place] [place] [address]Xef: Date:2017-11-14 - JEANBETTY POOL [id number] [id number]: (330) (HP) Name:[facility] Didier Administrators LLCPO (HP)Tel: (000) [address] [address]Abae[address], 000-0000 (WP) [place] [address]UX: 11/14/2017 Secondary KELLIE [facility]man [facility] INSURANCE [id number] Repository SECONDARYPolicy [address] Number: BETTY BRINK [id number] [address]Qnz: (330) Date:[id number] ()Tel: (000) Name:ABIMBOLA OTOOLE 000-0000 ([place]) [address], [place] [address]PD: 08/28/2017 [facility] KICKDOB: [facility] PART BPolicy Number: [id number] Repository [place], [id number] [address] [place] [place] [address]Mvr: Date:2017-07-18 - LAYNEBETTY FAYE [phone] [id number]: (330) (HP) Name:[facility] Didier Administrators LLCPO (HP)Tel: (000) [address] [address]Tviipyfok, 000-0000 ([place]) [place] [address]NN: 08/28/2017 Secondary KELLIE Dongltman Health [facility] INSURANCE [id number] Repository SECONDARYPolicy [address] Number: BETTY BRINK [id number] [id number]: (330) Date:2017-07-1831Plan ()Tel: (000) Name:CP Arnaud [address] ([place]) [address] [address]UB: 08/20/2017 [facility] [id number] PART BPolicy Number: [id number] Repository [place] [id number] [address] [place] [address]Tas: Date:2017-08-20 - KEENA [place] [id number]: (330) (HP) Name:[facility] [phone] Administrators LLCPO (HP)Tel: (000) [address] [address]Oslitpjjx, 000-0000 (WP) [place] [address]QK: 08/20/2017 Secondary [facility] INSURANCE [id number] Repository SECONDARYPolicy [address] Number: [place] [id number] [id number]: (330) Date:2017-08-20 [id number] (HP)Tel: (000) Name:CP [address] ([place]) [address] [address]OP:
== END ==
PROVIDERS: Family Provider Family Medicine; PCP Family Medicine; Referring Provider Orthopaedic Surgery; Visit Provider Orthopaedic Surgery
DX: M79.605 Pain in left leg (principal)
CPT/HCPCS: 93971

== ENCOUNTER 2018-09-02 11:30 | Outpatient (RCR) | payer MEDICARE, OTHER, SELFPAY ==
--- NOTE | 2018-06-26 13:40 | HP.PTEVAL ---
Patient's Visit Information LEW HUDSON is a 82 year old F referred to Physical Therapy by RNEEE ORTEGA DO with a diagnosis of Left TKR. 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 Ortega- came to PT initally last week and returned to the MD secondary to redness and bleeding through the bandages. Today she is in the clinic with her - wheeled back in a w/c. They live in a single story handicapped accessible home. She reports being fully I before surgery and that is her goal. Pain is bad when she stands on it 10/10 and sharp shooting but only a 5-6/10 when she is sitting. She is going back to the MD today for more pain medication and another bandage change. PMHx/Meds: in chart - Objective Posture: Fh, RS, Increased kyphosis. Gait: FWW- antalgic- decreased stance on LE- poor heel/toe. SLS: WS but painful. HR/TR: able sitting. ROM: 20-82 degrees. Strength: Ankle: 4+/5, Knee: 3+/5, Hip: 4-/5 throughout - Goals Goal 1:: Patient will be I with HEP and progression Goal Time Frame: 4-6 Weeks Goal 2:: Patient will demo 0-120 degrees of ROM Goal 3:: Patient will ambulate >300 feet with LRD and normalized gait pattern Goal Time Frame: 4-6 Weeks Goal 4:: Patient will asc/desc 8 recip with 1 HR Goal Time Frame: 4-6 Weeks - Rehabilitation Potential Physical Therapy Diagnosis: Patient presents with hypomobility- she has decreased ROM, strength and muscular endurance s/p TKR Rehabilitation Potential: Fair - Anticipated Interventions Patient/Client Instruction: Educate patient on: Benefits of Fitness Program Therapeutic Exercise to Include: Strength training, Endurance training, Balance training, Agility training, Body mechanics, Postural training, Flexibilty training, Gait and locomotor training, Passive ROM, Active ROM, Scapular Strength/Stabilization For the Purpose of:: To improve muscle performance and motor function TENS: Yes Cryotherapy (ice pack, ice massage): Yes Thermo therapy (hot pack): Yes Ultrasound (thermal/non thermal): No Thank you for the opportunity to evaluate your patient. For Medicare and Medicare HMO plans, please review the plan of care and approve it. It will need to be FAXED BACK to us at [phone] for Medicare purposes. For Medicare only, by signing this I certify the plan of care. Please let me know if there are questions or concerns regarding this plan of care. Physician Signature: Date:
--- NOTE | 2018-08-05 11:55 | HP.PTREVAL_ITS ---
RENEE ORTEGA, DO, It has been my pleasure to treat LEW HUDSON over the last 17 visits for Left TKR. Please see the progress note below for an update on the physical therapy plan of care! Subjective: The knee is getting better- still feels but the reasons he is taking the pain medication is from achying in her arms and when she walks and it pulls on the knee. She has minor pain in the incision. Takes one oxy and 2 Tylenol- went 24 hours this weekene without anything. But is taking it today for therapy. he swelling in the knee is a lot better. Uses the cane or nothing at home but is still using the walker outside the house. Sleep: not disturbed but has been sleeping in the reclyner with pillows under the knee. Takes a wa lker to the restroom at night. Feels that she is 60% better. Is getting back to normal activities- like cooking and doing dishes. Saw MD who reported she has 118 degrees and he is happy with progress. Goes back to see him in 6 weeks. Objective/Function: Posture: Fh, RS, Increased kyphosis. Gait: straight cane- antalgic- decreased stance on LE- poor heel/toe. SLS: 3 seconds then UE A. HR/TR: able with UE A. ROM: 5-110 degrees. Strength: Ankle: 5/5, Knee: 4/5, Hip: 4/5 throughout. Observation: incision healing well. Stairs: asc/desc 8 recip with 2 HR for balance and control Plan Plan: Cont with POC 3x a week for 3 weeks to focus on function and confidence with movement Goals Goal 1:: Patient will be I with HEP and progression Goal Time Frame: 4-6 Weeks Goal Progress: Progressing Goal 2:: Patient will demo 0-120 degrees of ROM Goal Progress: Progressing Goal 3:: Patient will ambulate >300 feet with LRD and normalized gait pattern Goal Time Frame: 4-6 Weeks Goal Progress: Progressing Goal 4:: Patient will asc/desc 8 recip with 1 HR Goal Time Frame: 4-6 Weeks Goal Progress: Progressing Anticipated Interventions Patient/Client Instruction: Educate patient on: Benefits of Fitness Program Therapeutic Exercise to Include: Strength training, Endurance training, Balance training, Agility training, Body mechanics, Postural training, Flexibilty training, Gait and locomotor training, Passive ROM, Active ROM, Scapular Strength/Stabilization For the Purpose of:: To improve muscle performance and motor function TENS: Yes Cryotherapy (ice pack, ice massage): Yes Thermo therapy (hot pack): Yes Ultrasound (thermal/non thermal): No Please do not hesitate to contact me at [phone] by phone or if you have questions or concerns regarding this new plan of care! Sincerely, TAMIKA PérezT
--- NOTE | 2018-09-02 11:51 | HP.PTDCSUM ---
HP - PT D/C Summary It has been my pleasure to treat LEW HUDSON under orders from RENEE ORTEGA DO, for the diagnosis of Left TKR for a total of 27 visit(s). Discharge Date: Please see the following information for a summary of their discharge status. 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 Uses the cane off and on- due to pain in the hip and sciatic- Is able to perform ADL's. Is challenged to carry something heavy. Is able to drive and go to the [employer] and bring groceries in. - Pain L knee Pain Intensity (Out of 10): 0 R SH Pain Intensity (Out of 10): 0 - Overall Improvement % Improvement: 90 - Objective Objective/Function: Posture: Fh, RS, Increased kyphosis. Gait: no AD in clinic but does use straight cane- increased stride length and ramakrishna- flat foot. SLS: 10 seconds then UE A. HR/TR: able with UE A. ROM: 0-110 degrees. Strength: Ankle: 5/5, Knee: 4+/5, Hip: 4+/5 throughout. Observation: incision healing well. Stairs: asc/desc 8 recip with 2 HR for balance and control - Goals Goal 1:: Patient will be I with HEP and progression Goal Progress: Goal Met Goal 2:: Patient will demo 0-120 degrees of ROM Goal Progress: Progressing Goal 3:: Patient will ambulate >300 feet with LRD and normalized gait pattern Goal Progress: Progressing Goal 4:: Patient will asc/desc 8 recip with 1 HR Goal Progress: Progressing - Plan Plan: Discharge to I HEP - D/C Information If there are questions or concerns regarding this patient's physical therapy, please feel free to call me at [phone]. Thank you for the referral of this patient. Sincerely, Suzi Snow DPT
== END 2018-09-02 14:46 | disposition home or self-care (01) ==
LOC: PT 11:30
PROVIDERS: Family Provider Family Medicine; PCP Family Medicine; Referring Provider Orthopaedic Surgery; Visit Provider Orthopaedic Surgery
DX: M17.12 Unilateral primary osteoarthritis, left knee (principal); Z47.1 Aftercare following joint replacement surgery; Z96.642 Presence of left artificial hip joint
CPT/HCPCS: 97110; 97140; 97162; 97164

== ENCOUNTER → 2018-12-11 16:40 | Outpatient (CLI) | payer MEDICARE, OTHER, SELFPAY ==
--- NOTE | 2018-12-11 16:42 | CT_ITS ---
STUDY: CT CHEST WITHOUT CONTRAST REASON FOR EXAM: Female, 83 years old. History of lung nodule. Follow-up exam. Cough. RADIATION DOSAGE (If Supplied By Facility): CTDIvol = ( 14.23 ) mGy, DLP = ( 481.11 ) mGycm TECHNIQUE: Transaxial imaging was performed without the administration of intravenous contrast material. Individualized dose optimization techniques were used for this CT. COMPARISON: 05/21/2018. FINDINGS: There is a 3 mm noncalcified nodule in the posterior segment of the left upper lobe best seen on image 90 series 4 unchanged since the prior examination. There is mild stranding in the lower lungs likely due to scarring. No new pulmonary nodules are identified. There is focal elevation of the posterior right hemidiaphragm with mild adjacent stranding/scarring unchanged since the prior examination. No focal infiltrate is seen. There is no evidence of pleural effusions. The heart size is normal. There may be trace of fluid posterior to the left atrium. There are few small normal sized mediastinal nodes. There is no evidence of adenopathy. Normal hilar regions. Normal unenhanced pulmonary arteries. There is mild atherosclerotic calcification of the aortic arch with tortuosity and elongation of the aortic arch and descending thoracic aorta. There are multi-level degenerative changes of the thoracic spine. The visualized portions of the upper abdomen demonstrate large cystic lesions in the region of the head of the pancreas partially visualized on this examination but appears to be unchanged measuring about 7.[address]/Chest without Contrast IMPRESSION: 1. Small noncalcified nodular left upper lobe for which no further follow-up examination is needed. 2. Mild atelectasis or scarring in the lower lungs and focal elevation of the posterior right hemidiaphragm unchanged since prior exam. 3. Partially visualized cystic lesions in the region of the head and body of the pancreas unchanged since the prior examination. Electronically Signed: Laith Cyr MD at 11:05 EDT Tel , Service support ,
== END ==
PROVIDERS: Family Provider Family Medicine; PCP Family Medicine; Referring Provider Family Medicine; Visit Provider Family Medicine
DX: R91.1 Solitary pulmonary nodule (principal); R91.8 Other nonspecific abnormal finding of lung field; Z85.828 Personal history of other malignant neoplasm of skin; Z87.898 Personal history of other specified conditions
CPT/HCPCS: 71250

== ENCOUNTER → 2019-02-20 11:36 | Outpatient (CLI) | payer MEDICARE, OTHER, SELFPAY ==
[2019-02-20 09:42] VITALS: BMI 24.7
[2019-02-20 13:13] LABS: Thyroid Stim Hormone (TSH) 2.71 uIU/mL (0.358-3.74)
== END ==
PROVIDERS: Family Provider Family Medicine; PCP Family Medicine; Referring Provider Internal Medicine Cardiovascular Disease; Visit Provider Internal Medicine Cardiovascular Disease
DX: I31.3 Pericardial effusion (noninflammatory) (principal)
CPT/HCPCS: 36415; 84443

== ENCOUNTER → 2019-03-05 13:19 | Outpatient (CLI) | payer MEDICARE, OTHER, SELFPAY ==
[2019-02-20 09:42] VITALS: BMI 24.7
[2019-03-05 13:40] VITALS: BP 121/67; PULSE 68; RESP 18; TEMP 35.8; O2SAT 96; BMI 26.1
[2019-03-05] MEDS: Zoledronic Acid 5 MG 100 ML 300 MG IV (13:56)
== END ==
PROVIDERS: Family Provider Family Medicine; PCP Family Medicine; Referring Provider Internal Medicine Endocrinology, Diabetes & Metabolism; Visit Provider Internal Medicine Endocrinology, Diabetes & Metabolism
DX: M81.0 Age-related osteoporosis without current pathological fracture (principal)
CPT/HCPCS: 96365; A4216; J3489

== ENCOUNTER → 2019-03-11 12:47 | Outpatient (CLI) | payer MEDICARE, OTHER, SELFPAY ==
[2019-02-20 09:42] VITALS: BMI 24.7
[2019-03-05 13:40] VITALS: BMI 26.1
--- NOTE | 2019-03-11 12:50 | ECHOD_ITS ---
Reason For Study: DYSPNEA/SOB Procedure This was a 2D Doppler, Color Flow transthoracic echocardiogram. The study was technically difficult. Due to respiratory interference and diminshed accoustic windows. Exam performed in department. Left Ventricle Normal LV size. Left ventricular systolic function is normal. The estimated ejection fraction is 55 %. Stage 1 diastolic dysfunction. No regional wall motion abnormalities noted. Right Ventricle Normal RV size. Normal systolic function. Atria Normal left atrium. Normal right atrium. Mitral Valve Normal mitral valve. Tricuspid Valve Normal tricuspid valve. Mild tricuspid valve insufficiency. Pulmonary artery systolic pressure is 30 mmHg. Pulmonic Valve Normal pulmonic valve. Great Vessels Normal aortic root. The pulmonary artery is normal size. Normal inferior vena cava. Pericardium/Pleural No pericardial effusion. MMode/2D Measurements & Calculations LVIDd: 3.6 cm IVSd: 0.82 cm Ao root diam: 2.9 cm LVIDs: 2.8 cm LVPWd: 0.83 cm RVDd: 3.5 cm FS: 23.7 % LAV(MOD-bp): 51.4 ml LVAd ap4: 24.4 cm2 SV(MOD-sp4): 39.5 ml LAV(MOD-bp) Indexed: 30.9 ml/m2 EDV(MOD-sp4): 64.6 ml LAV(MOD-sp2): 50.3 ml EDV(sp4-el): 65.6 ml LAV(MOD-sp4): 50.0 ml LVAs ap4: 13.2 cm2 ESV(MOD-sp4): 25.0 ml ESV(sp4-el): 23.8 ml EF(MOD-sp4): 61.2 % EF(sp4-el): 63.7 % SV(sp4-el): 41.8 ml LA dimension(2D): 4.0 cm LA A4 area: 18.3 cm2 RA A4 area: 13.2 cm2 Time Measurements MV dec time: 0.24 sec Doppler Measurements & Calculations MV E max musa: 56.1 cm/sec Lat Peak E' Musa: 8.2 cm/sec Med Peak E' Musa: 7.6 cm/sec MV A max musa: 78.6 cm/sec E/E' lat: 6.9 E/E' med: 7.3 MV E/A: 0.71 Ao V2 max: 135.7 cm/sec LV V1 max: 103.4 cm/sec PA V2 max: 75.6 cm/sec Ao max P.4 mmHg LV V1 max P.3 mmHg TR max musa: 257.6 cm/sec TR max P.6 mmHg Interpretation Summary Normal LV size. Left ventricular systolic function is normal. The estimated ejection fraction is 55 %. Stage 1 diastolic dysfunction. Mild tricuspid valve insufficiency. Ordering Physician: Osvaldo Fischer Referring Physician: Nathan Vanegas Performed By: Brie Urbano RDCS, RVT
== END ==
PROVIDERS: Family Provider Family Medicine; PCP Family Medicine; Referring Provider Internal Medicine Cardiovascular Disease; Visit Provider Internal Medicine Cardiovascular Disease
DX: I31.3 Pericardial effusion (noninflammatory) (principal)
CPT/HCPCS: 93306

== ENCOUNTER → 2019-07-31 10:42 | Outpatient (CLI) | payer MEDICARE, OTHER, SELFPAY ==
[2019-03-05 13:40] VITALS: BMI 26.1
== END ==
PROVIDERS: PCP Family Medicine; Referring Provider Internal Medicine Cardiovascular Disease; Visit Provider Internal Medicine Cardiovascular Disease
DX: R06.02 Shortness of breath (principal); R09.02 Hypoxemia
CPT/HCPCS: 94762

== ENCOUNTER → 2019-11-27 13:17 | Outpatient (CLI) | payer MEDICARE, OTHER, SELFPAY ==
[2019-03-05 13:40] VITALS: BMI 26.1
--- NOTE | 2019-11-27 13:33 | CT_ITS ---
STUDY: CT ABDOMEN WITH CONTRAST REASON FOR EXAM: Female, 84 years old. FOLLOW UP PANCREATIC CYST -- SURG-GB,RIGHT COLECTOMY D/T TWISTED BOWEL RADIATION DOSAGE (If Supplied By Facility): CTDIvol = ( 13.76 ) mGy, DLP = ( 442.23 ) mGycm TECHNIQUE: Transaxial images were obtained post I.V. administration of Oral and amp; IV Readi-CAT and amp; 100mL Isovue-300, and without oral contrast. Sagittal and coronal images were reconstructed. Individualized dose optimization techniques were used for this CT. COMPARISON: Comparison is made with prior examination dated November 29, 2017. FINDINGS: Stable minimal increased markings at the lung bases suggestive of scarring. Minimal pericardial thickening. Normal liver. The gallbladder is contracted. There are multiple benign calcified granulomata of the spleen. Since prior study, the cystic changes in the head and uncinate process of the pancreas have progressed. There are 2 adjacent cystic structures measuring 5.2 cm x 7.9 cm x 4.3 cm in aggregate measurement. Normal bilateral adrenal glands. Normal right kidney. Normal left kidney. Normal visualized stomach. Normal small intestine. Normal colon. The appendix is visualized and appears normal. There is diffuse atherosclerotic calcification of the abdominal aorta, without a demonstrated aneurysm. Normal inferior vena cava. Normal retroperitoneum. Normal abdominal wall. There are diffuse degenerative changes of the visualized lumbar spine. CT/Abdomen WITH IV Contrast IMPRESSION: Progressive increase in size of the adjacent versus septated cysts in the region of the head of the pancreas and uncinate process of the pancreas as described. Electronically Signed: Avelino Mclain, at 14:59 EDT , Service support ,
[2019-11-27 13:56] LABS: CREATININE FINGERSTICK < 0.6 mg/dL (0.55-1.02); EGFR FINGERSTICK > 60.0000 mL/min (>60)
== END ==
PROVIDERS: PCP Family Medicine; Referring Provider Family Medicine; Visit Provider Family Medicine
DX: K86.3 Pseudocyst of pancreas (principal)
CPT/HCPCS: 74160; Q9967

== ENCOUNTER → 2019-12-29 12:59 | Outpatient (CLI) | payer MEDICARE, OTHER, SELFPAY ==
[2019-03-05 13:40] VITALS: BMI 26.1
--- NOTE | 2019-12-29 13:08 | MRI_ITS ---
STUDY: MRI ABDOMEN WITH AND WITHOUT CONTRAST REASON FOR EXAM: Female, 84 years old. pancreas cyst follow up TECHNIQUE: Standardized fat and water weighted pulse sequences were obtained in all 3 orthogonal planes post contrast administration. IV Dotarem 13ml was administered for the contrast portion of the examination. COMPARISON: CT 11/27/2019 and 11/29/2017 FINDINGS: The visualized lung bases are unremarkable. The visualized portions of the heart are within normal limits. Normal liver. There are surgical clips in the gallbladder fossa consistent with a prior cholecystectomy. Normal spleen. There is an interval increase in the size of the septated cyst within the head of the pancreas from 5.0 x 6.5 cm to 6.0 x 7.5 cm. No solid nodularity. No contrast enhancement. Normal bilateral adrenal glands. Normal right kidney. Normal left kidney. Normal visualized stomach. Normal small intestine. Normal colon. There is non-visualization of the appendix. Normal abdominal aorta. Normal inferior vena cava. Normal retroperitoneum. Normal abdominal wall. Normal osseous structures. MRI/MRI Abd WITH and W/O Contrast IMPRESSION: Enlarging septated cyst of the head of the pancreas. Electronically Signed: Edenilson Conway MD at 16:38 EDT Tel , Service support ,
[2019-12-29 13:31] LABS: BUN 22 mg/dL (7-18); EST Glomerular Filtration Rate 101 mL/min (>60); Est Glom Filt Rate - Afr Amer 122 mL/min (>60)
== END ==
PROVIDERS: PCP Family Medicine
DX: K86.2 Cyst of pancreas (principal)
CPT/HCPCS: 36415; 74183; 82565; 84520; A9575

== ENCOUNTER → 2020-07-17 10:13 | Outpatient (CLI) | payer MEDICARE, OTHER, SELFPAY ==
[2020-02-26 11:45] VITALS: BMI 25.4
--- NOTE | 2020-07-17 10:26 | RAD_ITS ---
STUDY: X-RAY - RIGHT WRIST REASON FOR EXAM: Female, 84 years old. RIGHT WRIST PAIN X 1 MONTH. HX OF RIGHT 1ST DIGIT SURGERY. TECHNIQUE: 3 view(s) of the wrist were obtained. COMPARISON: None. FINDINGS: There is demineralization of the osseous structures. Normal radiocarpal articulation. Normal distal radioulnar articulation. Normal carpal bones. Normal carpal articulations. There is degenerative arthrosis of the carpometacarpal articulation of the thumb with subluxation. Calcifications of the base of the first metacarpal.. Normal second through fifth carpometacarpal articulations. Normal visualized metacarpal bones. The soft tissue structures are unremarkable. RAD/Wrist min 3 Views IMPRESSION: Degenerative arthrosis as described above. Electronically Signed: Laith Cyr MD at 11:40 EST Tel , Service support ,
== END ==
PROVIDERS: PCP Family Medicine; Referring Provider Family Medicine; Visit Provider Family Medicine
DX: M25.531 Pain in right wrist (principal)
CPT/HCPCS: 73110

== ENCOUNTER 2020-09-24 10:46 | Outpatient (RCR) | payer MEDICARE, OTHER, SELFPAY ==
[2020-02-26 11:45] VITALS: BMI 25.4
== END 2020-12-07 23:59 ==
LOC: IMMUN 10:46
PROVIDERS: PCP Family Medicine; Visit Provider Family Medicine
DX: Z23 Encounter for immunization (principal)
CPT/HCPCS: 0001A; 0002A; 91300

== ENCOUNTER → 2020-12-01 10:36 | Outpatient (CLI) | payer MEDICARE, OTHER, SELFPAY ==
[2020-02-26 11:45] VITALS: BMI 25.4
--- NOTE | 2020-12-01 10:40 | BI_ITS ---
MAMMOGRAPHY - BILATERAL SCREENING REASON FOR EXAM: Female, 85 years old. Routine annual screening examination. PERTINENT HISTORY: Non-contributory. Remote left excisional breast biopsy. TECHNIQUE: Digital bilateral breast peggy (3D mammographic acquisition) in the CC and MLO projections. 2-D mediolateral oblique (MLO) and craniocaudad (CC) views of both breasts were obtained. CAD: Full Field Digital Mammography with Computer Added Detection was performed. COMPARISON: Comparison is made with prior outside examination dated 11/10/2019. FINDINGS: Breast Composition: There are scattered areas of fibroglandular density. There are no dominant masses or suspicious calcifications. No other significant abnormalities are identified. There has been no significant change since the prior study. BI/SCRN MAMM (CAD)W/PEGGY BILAT IMPRESSION: Stable bilateral screening mammogram. Yearly follow-up mammogram recommended. (A) ASSESSMENT CATEGORY: BIRADS Category 1: Negative. A letter regarding these results will be sent to the patient by the facility within 30 days. Approximately 10% of breast cancers are not detected by mammography. A normal mammogram should not delay biopsy of a clinically suspicious abnormality. [id number] Electronically Signed: Avelino Mclain MD at 14:46 EDT , Service support ,
== END ==
PROVIDERS: PCP Family Medicine; Referring Provider Family Medicine; Visit Provider Family Medicine
DX: Z12.31 Encounter for screening mammogram for malignant neoplasm of breast (principal)
CPT/HCPCS: 77063; 77067

== ENCOUNTER → 2021-03-04 14:51 | Outpatient (CLI) | payer MEDICARE, OTHER, SELFPAY ==
[2021-03-04 14:57] VITALS: BP 131/52; PULSE 74; RESP 16; TEMP 36.5; O2SAT 97
[2021-03-04] MEDS: 0.9% NaCl Peripheral Flush Adult/Peds IV (15:01)
[2021-03-04] MEDS: Zoledronic Acid 5 MG 100 ML 300 MG IV (15:05)
[2021-03-04 15:39] VITALS: BP 106/47; PULSE 71; RESP 16; TEMP 36.7
== END ==
PROVIDERS: PCP Family Medicine; Referring Provider Internal Medicine Endocrinology, Diabetes & Metabolism; Visit Provider Internal Medicine Endocrinology, Diabetes & Metabolism
DX: M81.0 Age-related osteoporosis without current pathological fracture (principal)
CPT/HCPCS: 96365; A4216; J3489

== ENCOUNTER → 2021-12-05 | Outpatient (CLI) | payer MEDICARE, OTHER, SELFPAY ==
--- NOTE | 2021-12-05 12:12 | BI_ITS ---
MAMMOGRAPHY - BILATERAL SCREENING REASON FOR EXAM: Female, 86 years old. Routine annual screening examination. PERTINENT HISTORY: Non-contributory. Remote left excisional breast biopsy. TECHNIQUE: Digital bilateral breast peggy (3D mammographic acquisition) in the CC and MLO projections. 2-D mediolateral oblique (MLO) and craniocaudad (CC) views of both breasts were obtained. CAD: Full Field Digital Mammography with Computer Added Detection was performed. COMPARISON: Comparison is made with prior study dated 12/01/2020. FINDINGS: Breast Composition: There are scattered areas of fibroglandular density. There are no dominant masses or suspicious calcifications. No other significant abnormalities are identified. There has been no significant change since the prior study. BI/SCRN MAMM (CAD)W/PEGGY BILAT IMPRESSION: Stable bilateral screening mammogram. Yearly follow-up mammogram recommended. (A) ASSESSMENT CATEGORY: BIRADS Category 1: Negative. A letter regarding these results will be sent to the patient by the facility within 30 days. Approximately 10% of breast cancers are not detected by mammography. A normal mammogram should not delay biopsy of a clinically suspicious abnormality. [id number] Electronically Signed: Avelino Mclain MD at 12:53 EDT ,
== END | disposition home or self-care (01) ==
LOC: OPBI 12:10
PROVIDERS: PCP Family Medicine; Referring Provider Family Medicine; Visit Provider Family Medicine
DX: Z12.31 Encounter for screening mammogram for malignant neoplasm of breast (principal)
CPT/HCPCS: 77063; 77067

== ENCOUNTER → 2022-08-29 | Outpatient (CLI) | payer MEDICARE, OTHER, SELFPAY | END | disposition home or self-care (01) | LOC: LAB.FUTURE 14:12 | PROVIDERS: PCP Family Medicine; Visit Provider Family Medicine | DX: E53.8 Deficiency of other specified B group vitamins (principal) ==

== ENCOUNTER → 2022-08-31 | Outpatient (CLI) | payer MEDICARE, OTHER, SELFPAY ==
[2022-08-31 16:02] LABS: Vitamin B12 530 pg/mL (211-911)
== END | disposition home or self-care (01) ==
LOC: BFHLAB 11:15
PROVIDERS: PCP Family Medicine; Visit Provider Family Medicine
DX: E53.8 Deficiency of other specified B group vitamins (principal)
CPT/HCPCS: 36415; 82607

== ENCOUNTER → 2022-09-05 | Outpatient (CLI) | payer MEDICARE, OTHER, SELFPAY | END | disposition home or self-care (01) | LOC: LABSPEC 16:14 | PROVIDERS: PCP Family Medicine; Visit Provider Family Medicine | DX: Z20.828 Contact with and (suspected) exposure to other viral communicable diseases (principal) | CPT/HCPCS: 87635; U0003; U0005 ==

== ENCOUNTER 2022-12-02 16:18 | Emergency (ER) | payer MEDICARE, OTHER, SELFPAY ==
[2022-12-02 16:19] VITALS: BP 165/61; PULSE 81; RESP 20; TEMP 36.6; O2SAT 98; BMI 23.8
--- NOTE | 2022-12-02 16:36 | CT_ITS ---
INDICATION: fall EXAMINATION: CT ABDOMEN AND PELVIS WITHOUT CONTRAST - CT Abdomen And Pelvis W/O Contrast Injection TECHNIQUE: Helically acquired images were obtained of the abdomen and pelvis without oral or IV contrast. A radiation dose optimization technique was used for this scan. IV Contrast dosage and agent: None. Oral contrast: None. COMPARISON: CT abdomen 11/27/2019, MRI abdomen 12/29/2019 FINDINGS: LOWER CHEST: Atelectatic changes right lung base. LIVER: Homogeneous. No focal mass. GALLBLADDER AND BILIARY TREE: Cholecystectomy. No intra- or extrahepatic biliary ductal dilation. PANCREAS: Increasing size in the cystic lesion associated with the head of the pancreas with faint internal septation, currently 10.2 cm greatest dimension compared to 7.7 cm previously. SPLEEN: Normal size without focal cystic or solid mass. ADRENAL GLANDS: No nodules. KIDNEYS AND URETERS: Normal renal size and position. No hydronephrosis. PERITONEUM: No ascites or free air. BOWEL: No evidence of acute appendicitis. No stomach or bowel distension. No focal inflammatory change. LYMPH NODES: No enlarged mesenteric or retroperitoneal lymph nodes. VESSELS: Aorta is non-dilated. URINARY BLADDER: Partially obscured by beam hardening artifact from the bilateral hip prostheses. Grossly unremarkable. REPRODUCTIVE ORGANS: Largely obscured by beam hardening artifact from the bilateral hip prostheses. ABDOMINAL WALL: Fat-containing umbilical hernia. BONES: No acute fracture. Bilateral hip prostheses without pathologic lucency. CT/Abdomen/Pelvis without Cont IMPRESSION: No acute findings in the abdomen or pelvis. Interval increase in size of the loculated cystic lesion at the head of the pancreas. Electronically Signed: Trae Pryor MD at 17:49 EDT ,
--- NOTE | 2022-12-02 16:39 | EDS_ITS ---
HPI <PATIENCE Goldsmith - Last Filed: 12/02/22 18:10> History of Present Illness Chief Complaint: Lower Extremity Injury Narrative Narrative: Patient tripped and fell onto her butt on November 14. She was having a lot of lower back and tailbone pain and saw Dr. Yu on 518 and had negative x-rays. She saw her PCP and tried meloxicam without relief. She was just prescribed tramadol and it was helping yesterday but today is not alleviating the pain. Over the last week she has had worsening pain and is using a walker. It hurts in any position. She has no pain radiating down the legs or weakness numbness tingling. No bladder or bowel incontinence or saddle anesthesia. She is scheduled to see Dr. Kahn for first appointment in 2 days and to start physical therapy soon. [facility] <PATIENCE Goldsmith - Last Filed: 12/02/22 18:10> [facility] Medical History Bilateral shoulder pain COPD (chronic obstructive pulmonary disease) GERD (gastroesophageal reflux disease) Goiter Hemorrhoids Hyperlipidemia Idiopathic thrombocythemia Left hip pain Macular degeneration Nodule of left lung Nonrheumatic tricuspid valve regurgitation Osteoarthritis Osteoporosis Pancreatic cyst Pericardial effusion Right hip pain Right knee pain Secondary pulmonary arterial hypertension Vertigo Vitamin D deficiency Home Medications albuterol sulfate 90 mcg/actuation aerosol inhaler (Ventolin HFA) 1 puff inhalation Q6H PRN Sob &/Or Wheezing 02/26/18 [History Last Taken Unknown] calcium phosphate 250 mg-vit D3 12.5 mcg (500 unit) chewable tablet (Citracal-D3 Gummies) 1 tab PO DAILY 02/26/18 [History Last Taken 12/07/22] cholecalciferol (vitamin D3) 25 mcg (1,000 unit) capsule 1,000 unit PO DAILY 02/26/18 [History Last Taken 12/07/22] docusate sodium 100 mg capsule (Stool Softener) 100 mg PO DAILY 02/26/18 [History Last Taken 12/07/22] fluticasone propionate 50 mcg/actuation nasal spray,suspension (Flonase Allergy Relief) 1 spray intranasal DAILY PRN Allergies 02/26/18 [History Last Taken 12/07/22] guaifenesin 600 mg tablet, extended release 12 hr (Mucinex) 600 mg PO Q12H PRN Cough 02/26/18 [History Last Taken 12/08/22] magnesium oxide 500 mg capsule 500 mg PO DAILY 02/26/18 [History Last Taken 12/07/22] zoledronic acid 5 mg/100 mL in mannitol 5 %-water intravenous piggybck (Reclast) 1 dose .Route .Q2YEAR 02/26/18 [History Last Taken Unknown] coenzyme Q10 100 mg capsule (Co Q-10) 200 mg PO DAILY 02/27/18 [History Last Taken 12/07/22] metoprolol tartrate 25 mg tablet 12.5 mg PO DAILY PRN heart flutter 02/20/19 [History Last Taken 12/07/22] simethicone 180 mg capsule (Gas-X Ultra-Strength) 180 mg PO BID PRN Gastric Reflux 02/26/20 [History Last Taken 12/07/22] hydroxyurea 500 mg capsule 500 mg PO DAILY 09/14/22 [History Last Taken 12/07/22] cetirizine 10 mg tablet (Zyrtec) 10 mg PO DAILY ALLERGIES 12/08/22 [History Last Taken 12/08/22] ibuprofen 200 mg tablet 400 mg PO Q6H PRN Pain 12/08/22 [History Last Taken 12/07/22] acetaminophen 500 mg tablet 1,000 mg PO Q8 6 days #36 tabs 12/09/22 [Rx Last Taken Unknown] hydrocodone-acetaminophen 5-325mg 5mg-325mg 1 tab PO 4X/DAY PRN PRN PAIN 6-10 5 days #20 tabs 12/09/22 [Rx Last Taken Unknown] Allergy/AdvReac Type Severity Reaction Status Date / Time amoxicillin AdvReac Upset Verified 12/08/22 12:45 Stomach atorvastatin [From Lipitor] AdvReac myalgias Verified 12/08/22 12:45 ciprofloxacin [From Cipro] AdvReac Itching Verified 12/08/22 12:45 clarithromycin [From Biaxin] AdvReac Vomiting Verified 12/08/22 12:45 thiopental [From Pentothal] AdvReac Nausea Verified 12/08/22 12:45 Family History Brother CAD (coronary artery disease) Diabetes Father Diabetes Myocardial infarction Surgical History H/O colectomy H/O shoulder surgery H/O total knee replacement (06/2018) History of carpal tunnel release History of right and left heart catheterization (09/22/13) History of right hip replacement History of total left hip replacement Hx of cholecystectomy S/P tendon repair Social History Smoking Status: Never smoker alcohol intake: never ROS <PATIENCE Goldsmith - Last Filed: 12/02/22 18:10> ROS ED ROS Narrative Constitutional: Negative for fever, chills, malaise. Neuro: Negative for motor/sensory dysfunction. Skin: Negative for wound. Musc: Negative for joint pain, swelling. EXAM <PATIENCE Goldsmith - Last Filed: 12/02/22 18:10> Physical Exam Narrative Exam Narrative: CONST: Patient sitting in no acute distress. EYES: Normal inspection. NECK: Normal inspection. RESP: No respiratory distress, CTAB. CVS: Regular rate and rhythm, no murmur, no gallop. Back: Normal inspection, no midline lumbar tenderness. Midline sacral tenderness, no external bruising. SKIN: Color normal, no rash, warm, dry, intact. EXTREMITIES: Normal appearance, 5/5 strength in bilateral hip flexion, knee flexion/extension, DF/PF. Normal sensation, 2+ PT pulses. PSYCH: Normal affect. Const Vital Signs: 12/02/22 16:19 Temperature 97.8 F Temperature Source Temporal Pulse Rate 81 Respiratory Rate 20 H Blood Pressure 165/61 H Blood Pressure Mean 95 Pulse Ox 98 Oxygen Delivery Method Room Air <Dr. Aracelis Georges DO - Last Filed: 12/13/22 23:25> Physical Exam Const Vital Signs: 12/02/22 16:19 Temperature 97.8 F Temperature Source Temporal Pulse Rate 81 Respiratory Rate 20 H Blood Pressure 165/61 H Blood Pressure Mean 95 Pulse Ox 98 Oxygen Delivery Method Room Air MDM <PATIENCE Goldsmith - Last Filed: 12/02/22 18:10> MDM MDM Narrative Medical decision making narrative: History gathered from: Patient and Patient had a fall in 2 about a month ago and is having persistent sacral and buttock pain. She has had negative x-rays with outpatient orthopedics. She presents with persistent pain. She seems to indicate the area of pain is over the bilateral SI region and into the buttocks. It does not radiate down the legs and she has normal strength, sensation, pulses. She had normal gait down the length of the hallway with a walker. Due to persistent pain a CT was ordered to rule out occult fracture. CT shows no acute findings in the abdomen or pelvis. Incidentally she has a pancreas loculated cystic lesion increased in size from 2019 which the patient is aware of. Attending had a long discussion with patient about pain control. She is only been taking tramadol twice a day for 1 day but can take it up to 4 times a day as prescribed. She can also use [id number] lidocaine patches. She would rather trial this then start a new stronger medication which I think is appropriate. She has follow-up with Dr. Kahn for back evaluation in 2 days. She was comfortable with this plan and discharged in stable condition. Differential: Tailbone contusion, occult pelvic fracture Radiography Diagnostic Testing: Clinical Impression(s) from Imaging Studies Abdomen/Pelvis CT 12/02/22 16:36 IMPRESSION: No acute findings in the abdomen or pelvis. Interval increase in size of the loculated cystic lesion at the head of the pancreas. Electronically Signed: Trae Pryor MD at 17:49 EDT , <Dr. Aracelis Georges, DO - Last Filed: 12/13/22 23:25> MDM Radiography Diagnostic Testing: Clinical Impression(s) from Imaging Studies Abdomen/Pelvis CT 12/02/22 16:36 IMPRESSION: No acute findings in the abdomen or pelvis. Interval increase in size of the loculated cystic lesion at the head of the pancreas. Electronically Signed: Trae Pryor MD at 17:49 EDT , Treatment and Re-Evaluation :: I have personally performed a face to face assessment of the patient and have reviewed the CORINNA Note. I performed a substantive portion of the visit including all aspects of the following. My galdamez findings include: Patient is an 87 year old female presenting with continued low back and tailbone pain after a fall a month ago. Patient had been prescribed tramadol which did help yesterday. She is prescribed it up to every 6 hours but is only taking it once or twice today. She notes her pain is worse today but was better yesterday. Denies any falls or injuries. Denies any urinary symptoms. Has appointment to see spine, Dr. Kahn, in 2 days. On physical exam patient has no pinpoint bony tenderness. She has no other systemic symptoms. No signs of cauda equina syndrome. She does have good strength and sensation of her legs. Due to the patient's continued pain we did elect to obtain a CT of the pelvis to rule out any occult fracture. agriculture laboratory technician had noticed a large masslike structure in the abdomen and extended the CT up to the abdomen. It shows a stable loculated pancreatic cystic lesion which patient was aware of. Discussed with patient that she has not maximized the tramadol yet and she can take it up to 4 times a day. Patient does comment that she slept really well last night and then did not take any medicine until later in the morning. I think she probably got behind on her medicine. Discussed taking pain medicine before she knows she will get up to help when she starts moving. Did offer escalating medication to something like Duarte or Percocet however patient is comfortable continuing to maximizing the tramadol. She has good close outpatient follow-up with specialist and is given return precautions. At this time she feels safe at home does not need to come in for PT/OT/SNF evaluation. Discharged home in stable condition. Other additions or changes: [None] Discharge Plan Triage Chief Complaint: Lower Extremity Injury ED Midlevel Provider: Raven Munguia ED Provider: Aracelis Georges Dx/Rx/DC Orders Clinical Impression: Gluteal pain Instructions: Communicating About Pain Prescriptions: No Action calcium phosphate-vitamin D3 [Citracal-D3 Gummies] 250 mg calcium- 500 unit tablet,chewable 1 tab PO DAILY fluticasone propionate [Flonase Allergy Relief] 50 mcg/actuation spray,suspension 1 spray INTRANASAL DAILY PRN (Reason: Allergies) magnesium oxide 500 mg capsule 500 mg PO DAILY guaifenesin [Mucinex] 600 mg tablet extended release 12hr 600 mg PO Q12H PRN (Reason: Cough) zoledronic [id number] [Reclast] 5 mg/100 mL piggyback 1 dose .Route .Q2YEAR Label Comments: .Qyear Rx Instructions: .Qyear docusate sodium [Stool Softener] 100 mg capsule 100 mg PO DAILY albuterol sulfate [Ventolin HFA] 90 mcg/actuation HFA aerosol inhaler 1 puff INHALATION Q6H PRN (Reason: Sob &/Or Wheezing) cholecalciferol (vitamin D3) 1,000 unit capsule 1,000 unit PO DAILY coenzyme Q10 [Co Q-10] 100 mg capsule 200 mg PO DAILY hydroxyurea 500 mg capsule 500 mg PO DAILY metoprolol tartrate 25 mg tablet 12.5 mg PO DAILY PRN (Reason: heart flutter) simethicone [Gas-X Ultra-Strength] 180 mg capsule 180 mg PO BID PRN (Reason: Gastric Reflux) cetirizine [Zyrtec] 10 mg Tablet 10 mg PO DAILY ibuprofen 200 mg Tablet 400 mg PO Q6H PRN (Reason: Pain) hydrocodone-acetaminophen 5-325 mg Tablet 1 tab PO 4X/DAY PRN PRN (Reason: PAIN 6-10) 5 Days Qty: 20 0RF acetaminophen 500 mg Tablet 1,000 mg PO Q8 6 Days Qty: 36 0RF Primary Care Provider: Nathan Vanegas Referrals: Nathan Vanegas DO [Primary Care Provider] - Activity Restrictions/Additional Instructions: You can take your tramadol up to 4 times a day as prescribed. You can buy over the counter lidocaine patches 4%. They are called peg keyes. Follow up with your doctors. Disposition Disposition: Home, Self Care
[2022-12-02] MEDS: Lidocaine 5% Patch 1 PATCH TOPICAL (16:44)
[2022-12-02 18:19] VITALS: BP 133/57; PULSE 67; RESP 16; O2SAT 98
== END 2022-12-02 18:21 | disposition home or self-care (01) ==
PROVIDERS: Emergency Provider Emergency Medicine; PCP Family Medicine; Visit Provider Emergency Medicine
DX: M54.50 Low back pain, unspecified (principal); J44.9 Chronic obstructive pulmonary disease, unspecified; E78.5 Hyperlipidemia, unspecified
CPT/HCPCS: 74176; 99282

== ENCOUNTER 2022-12-08 12:42 | Observation (INO) | payer MEDICARE, OTHER, SELFPAY ==
[2022-12-08 12:43] VITALS: BP 150/53; PULSE 95; RESP 16; TEMP 36.6; O2SAT 100
[2022-12-08] MEDS: Morphine 4 MG/ML Syringe IV ×2 (13:56→16:00)
[2022-12-08 13:59] VITALS: BMI 24.7
--- NOTE | 2022-12-08 14:05 | ED.VIS.BACK ---
HPI History of Present Illness Chief Complaint: Back Onset/Context/Timing Onset: Weeks (3) Context: Gradual Onset Injury: fall Timing: Continuous Quality: Dull Location: Buttock Worsened by: improves with Movement and Ambulation Relieved by: Remaining Still Associated Symptoms Associated Symptoms: Radiation to Right Leg and Radiation to Left Leg; Negative for Numbness, Tingling, Fever, Abdominal Pain, Dysuria, Unable to Ambulate, Unable to Transfer, Urinary Retention, Urinary Incontinence, Constipation or Fecal Incontinence Narrative Narrative: Patient presents with lower back and pelvic pain that began after a fall approximately 3 weeks ago. Patient states the pain has been constant since the fall. Patient describes it as dull. Patient states the pain is mainly over her sacrum and pelvis area. Patient states it is worse with movement and ambulation. Patient states it is better with sitting in her recliner. Patient denies any paresthesias or weakness. Patient denies any bowel or bladder changes. Patient denies any saddle anesthesia. Patient saw her orthopedic spine surgeon today who did x-rays and noticed a sacral fracture. Patient was then referred to the emergency department for further evaluation and likely admission for pain control and rehab facility placement. He also recommended obtaining a CT scan of the pelvis to further evaluate the sacral fracture. [facility] Medical History Bilateral shoulder pain COPD (chronic obstructive pulmonary disease) GERD (gastroesophageal reflux disease) Goiter Hemorrhoids Hyperlipidemia Idiopathic thrombocythemia Left hip pain Macular degeneration Nodule of left lung Nonrheumatic tricuspid valve regurgitation Osteoarthritis Osteoporosis Pancreatic cyst Pericardial effusion Right hip pain Right knee pain Secondary pulmonary arterial hypertension Vertigo Vitamin D deficiency Home Medications albuterol sulfate 90 mcg/actuation aerosol inhaler (Ventolin HFA) 1 puff inhalation Q6H PRN Sob &/Or Wheezing 02/26/18 [History Last Taken Unknown] calcium phosphate 250 mg-vit D3 12.5 mcg (500 unit) chewable tablet (Citracal-D3 Gummies) 1 tab PO DAILY 02/26/18 [History Last Taken Unknown] cholecalciferol (vitamin D3) 25 mcg (1,000 unit) capsule 1,000 unit PO DAILY 02/26/18 [History Last Taken Unknown] docusate sodium 100 mg capsule (Stool Softener) 100 mg PO DAILY 02/26/18 [History Last Taken Unknown] fluticasone propionate 50 mcg/actuation nasal spray,suspension (Flonase Allergy Relief) 1 spray intranasal DAILY PRN Allergies 02/26/18 [History Last Taken Unknown] guaifenesin 600 mg tablet, extended release 12 hr (Mucinex) 600 mg PO Q12H PRN Cough 02/26/18 [History Last Taken Unknown] magnesium oxide 500 mg capsule 500 mg PO DAILY 02/26/18 [History Last Taken Unknown] zoledronic acid 5 mg/100 mL in mannitol 5 %-water intravenous piggybck (Reclast) 1 dose .Route .Q2YEAR 02/26/18 [History Last Taken Unknown] coenzyme Q10 100 mg capsule (Co Q-10) 200 mg PO DAILY 02/27/18 [History Last Taken Unknown] metoprolol tartrate 25 mg tablet 12.5 mg PO ONCE PRN 02/20/19 [History Last Taken Unknown] simethicone 180 mg capsule (Gas-X Ultra-Strength) 180 mg PO BID PRN 02/26/20 [History Last Taken Unknown] meclizine 25 mg tablet mg PO PRN 02/24/21 [History Last Taken Unknown] hydroxyurea 500 mg capsule 500 mg PO DAILY 09/14/22 [History Last Taken Unknown] cetirizine 10 mg tablet (Zyrtec) 10 mg PO DAILY ALLERGIES 12/08/22 [History Last Taken 12/08/22] hydrocodone-acetaminophen 5-325mg 5mg-325mg 1 tab PO 4XD PAIN 12/08/22 [History Last Taken 12/08/22] ibuprofen 200 mg tablet 400 mg PO Q6H PRN Pain 12/08/22 [History Last Taken 12/07/22] Allergy/AdvReac Type Severity Reaction Status Date / Time amoxicillin AdvReac Upset Verified 12/08/22 12:45 Stomach atorvastatin [From Lipitor] AdvReac myalgias Verified 12/08/22 12:45 ciprofloxacin [From Cipro] AdvReac Itching Verified 12/08/22 12:45 clarithromycin [From Biaxin] AdvReac Vomiting Verified 12/08/22 12:45 thiopental [From Pentothal] AdvReac Nausea Verified 12/08/22 12:45 Family History Brother CAD (coronary artery disease) Diabetes Father Diabetes Myocardial infarction Surgical History H/O colectomy H/O shoulder surgery H/O total knee replacement (06/2018) History of carpal tunnel release History of right and left heart catheterization (09/22/13) History of right hip replacement History of total left hip replacement Hx of cholecystectomy S/P tendon repair Social History Smoking Status: Never smoker alcohol intake: never ROS ROS ED Constitutional Constitutional ED: Denies chills or fever(s) Eyes Eyes: Denies blurry vision or change in vision ENT ENT ED: Denies rhinorrhea or sore throat Cardiovascular Cardiovascular: Denies chest pain or palpitations Respiratory/Chest Respiratory/Chest: Denies cough or dyspnea Gastrointestinal Gastrointestinal: Denies nausea or vomiting Genitourinary Genitourinary ED: Denies dysuria or hematuria Musculoskeletal Musculoskeletal: Reports back pain; Denies neck pain Integumentary Denies abscess or rash Neurologic Neurologic: Reports headache(s); Denies weakness Allergic/Immunologic Allergic/Immunologic ED: Denies mouth swelling or urticaria EXAM Physical Exam Const Vital Signs: 12/08/22 12:43 12/08/22 15:42 Temperature 98 F Temperature Source Temporal Pulse Rate 95 88 Respiratory Rate 16 18 Blood Pressure 150/53 H 158/81 H Blood Pressure Mean 85 106 Pulse Ox 100 100 Oxygen Delivery Method Room Air Room Air Positive well nourished and well developed General Appearance ED: well developed and NAD HEENT Reports moist mucous membranes Neck supple and no JVD Resp normal respiratory effort and clear to auscultation bilaterally Cardio regular rate and regular rhythm GI soft to palpation Back/Spine Back/Spine Narrative: There is some mild tenderness over the sacrum. There is no bony crepitance or step-off noted. Range of motion was slightly limited in all motions of the lower back secondary to pain. Strength is 5/5 bilaterally in the lower extremities. There are no sensory deficits noted. Neuro oriented x3 and no sensory deficits noted Sensorium / Orientation: alert Motor Exam: strength 5/5 throughout Psych mental status grossly normal MDM MDM MDM Narrative Medical decision making narrative: Differential diagnosis includes sacral fracture, and debility. CT scan of the pelvis will be obtained to assess for sacral fracture. Basic labs will be obtained. CBC will be obtained to assess for leukocytosis and anemia. Basic metabolic profile will be obtained to assess for electrolyte abnormality and renal function. Urinalysis will be obtained to assess for urinary tract infection and hematuria. Lab Data Attestation: I reviewed the patient's lab results. Lab results narrative: CBC was reviewed and was essentially within normal limits. Basic metabolic profile was reviewed. Sodium was slightly low at 132 but the remainder was essentially within normal limits. Urinalysis was reviewed. There is no evidence of urinary tract infection or hematuria. Labs: Laboratory Results - last 24 hr 12/08/22 12/08/22 12/08/22 13:55 13:55 14:50 WBC 7.0 RBC 4.04 L Hgb 13.7 Hct 40.5 MCV 100.2 H MCH 33.9 H MCHC 33.8 RDW Std Deviation 58.4 H RDW Coeff of Cyril 16.1 H Plt Count 438 MPV 8.9 Immature Gran % (Auto) 0.300 Neut % (Auto) 77.6 H Lymph % (Auto) 11.0 L [place] % (Auto) 9.0 Eos % (Auto) 1.7 Baso % (Auto) 0.4 Absolute Neuts (auto) 5.5 Absolute Lymphs (auto) 0.77 L Nucleated RBC % 0 Sodium 132 L Potassium 3.6 Chloride 99 Carbon Dioxide 27.0 Anion Gap 6 BUN 9 Creatinine 0.50 L Estim Creat Clear Calc 28.47 Est GFR (MDRD) Af Amer 151 Est GFR (MDRD) Non-Af 125 BUN/Creatinine Ratio 18.1 Glucose 95 Calcium 9.0 Urine Color Yellow Urine Clarity Sl. Cloudy Urine pH 7.0 Ur Specific [place] 1.005 Urine Protein Negative Urine Glucose (UA) Normal Urine Ketones 15 H Urine Occult Blood Negative Urine Nitrite Negative Urine Bilirubin Negative Urine Urobilinogen Normal Ur Leukocyte Esterase Negative Urine RBC 0 SEEN Urine WBC 0 SEEN Ur Squamous Epith Cells 0-5 SEEN Urine Bacteria 0 SEEN Urine Mucus 0 SEEN Radiography Diagnostic Testing: Clinical Impression(s) from Imaging Studies Pelvis CT 12/08/22 14:09 IMPRESSION: Limited visualization of the pelvis due to beam hardening artifact from prior bilateral hip replacements. Electronically Signed: Avelino Mclain MD at 14:42 EDT , CT scan of the pelvis was obtained. There is a sacral fracture that is nondisplaced. There are no other fractures noted. This was interpreted by the radiologist and was also independently reviewed by myself. Treatment and Re-Evaluation Narrative: Patient was given a dose of morphine here. Patient was still having pain. Patient was given a repeat dose of morphine. Patient was advised of her findings. Case was discussed with Dr. Kahn from orthopedics. He reviewed the CT scan and will be able to follow her along. Case was discussed with the hospitalist. He will admit the patient to his service. Patient understood and was agreeable with the plan. All questions were answered. Discharge Plan Triage Chief Complaint: Back ED Provider: Terrence Jones Dx/Rx/DC Orders Clinical Impression: Closed sacral fracture, Fall Prescriptions: No Action calcium phosphate-vitamin D3 [Citracal-D3 Gummies] 250 mg calcium- 500 unit tablet,chewable 1 tab PO DAILY fluticasone propionate [Flonase Allergy Relief] 50 mcg/actuation spray,suspension 1 spray INTRANASAL DAILY PRN (Reason: Allergies) magnesium oxide 500 mg capsule 500 mg PO DAILY guaifenesin [Mucinex] 600 mg tablet extended release 12hr 600 mg PO Q12H PRN (Reason: Cough) zoledronic [id number]-[id number] [Reclast] 5 mg/100 mL piggyback 1 dose .Route .Q2YEAR Label Comments: .Qyear Rx Instructions: .Qyear docusate sodium [Stool Softener] 100 mg capsule 100 mg PO DAILY albuterol sulfate [Ventolin HFA] 90 mcg/actuation HFA aerosol inhaler 1 puff INHALATION Q6H PRN (Reason: Sob &/Or Wheezing) cholecalciferol (vitamin D3) 1,000 unit capsule 1,000 unit PO DAILY coenzyme Q10 [Co Q-10] 100 mg capsule 200 mg PO DAILY hydroxyurea 500 mg capsule 500 mg PO DAILY metoprolol tartrate 25 mg tablet 12.5 mg PO ONCE simethicone [Gas-X Ultra-Strength] 180 mg capsule 180 mg PO BID PRN (Reason: Gastric Reflux) meclizine 25 mg tablet 25 mg PO DAILY cetirizine [Zyrtec] 10 mg Tablet 10 mg PO DAILY hydrocodone-acetaminophen 5-325 mg tablet 1 tab PO 4XD ibuprofen 200 mg Tablet 400 mg PO Q6H PRN (Reason: Pain) Primary Care Provider: Nathan Vanegas Referrals: Nathan Vanegas DO [Primary Care Provider] - Disposition Disposition: Acute Care Hospital [facility]
--- NOTE | 2022-12-08 14:09 | CT_ITS ---
STUDY: CT PELVIS WITHOUT CONTRAST REASON FOR EXAM: Female, 87 years old. Sacrum fracture RADIATION DOSAGE (If Supplied By Facility): CTDIvol = ( 17.70 ) mGy, DLP = ( 640.85 ) mGycm TECHNIQUE: Transaxial imaging of the pelvis was performed with oral contrast, and without intravenous administration of contrast material. Multiplanar coronal and sagittal images were reformatted. Individualized dose optimization techniques were used for this CT. COMPARISON: Comparison is made with prior study December 02, 2022. FINDINGS: There is evidence of an 8.7 cm x 11.4 cm x 7.2 cm predominantly cystic mass seen in the region of the phil hepatis extending into the lower abdomen centrally. This is unchanged. Normal visualized small intestine. Normal visualized colon. There is no pelvic fluid. There is no pelvic mass lesion or lymphadenopathy. Normal visualized pelvic arteries. Normal abdominal wall. Beam hardening artifacts limits visualization of the pelvis. Status post bilateral total hip replacement. Stable minimal anterolisthesis of L5 on S1. CT/Pelvis without IV Contrast IMPRESSION: Limited visualization of the pelvis due to beam hardening artifact from prior bilateral hip replacements. Electronically Signed: Avelino Mclain MD at 14:42 EDT ,
[2022-12-08 14:13] LABS: Absolute Lymphocyte Count 0.77 X10^3/uL (0.83-4.51); Absolute Neutrophil Count 5.5 X10^3/uL (2.0-7.7); Basophil# 0.03 X10^3/uL; Basophil% 0.4 % (0-1); Eosinophil# 0.12 X10^3/uL; Eosinophils% 1.7 % (0-5); Hematocrit 40.5 % (37-47); Hemoglobin 13.7 g/dL (12.0-15.0); Lymphocyte # 0.77 X10^3/ul (0.83-4.51); Mean Corp Hgb Conc 33.8 g/dL (32-36); Mean Corpuscular Hgb 33.9 pg (27.0-32.0); Mean Corpuscular Volume 100.2 fL (81-99); Mean Platelet Vol. 8.9 fl (6.2-12.0); Monocyte# 0.63 X10^3/uL; NRBC Flagged by Analyzer 0 % (0-5); Neutrophil # 5.46 X10^3/uL (2.7-7.7); Neutrophil % 77.6 % (47-70); Platelet Count 438 K/mm3 (150-450); RBC Distribution Width CV 16.1 % (11.6-14.6); RBC Distribution Width SD 58.4 fl (35.1-43.9); Red Blood Count 4.04 M/mm3 (4.2-5.4)
[2022-12-08 14:33] LABS: Anion Gap 6 (5-15); BUN 9 mg/dL (7-18); BUN/Creat Ratio 18.1 RATIO (10-20); Chloride 99 mmol/L (98-107); EST Glomerular Filtration Rate 125 mL/min (>60); Est Glom Filt Rate - Afr Amer 151 mL/min (>60); Estimated Creatinine Clearance 28.47 ml/min; Glucose 95 mg/dL (74-106); Potassium 3.6 mmol/L (3.5-5.1); Sodium Level 132 mmol/L (136-145)
[2022-12-08 14:57] LABS: Bacteria 0 SEEN /hpf (None Seen); Mucous, Urine 0 SEEN /hpf (<or=2+); Red Blood Cells-Urine 0 SEEN /hpf (0-5); White Blood Cells 0 SEEN /hpf (0-5)
[2022-12-08 15:09] LABS: Color, Urine Yellow (Yellow); Glucose, Dipstick Normal (Normal); Ketone-Dipstick 15 mg/dl (Negative); Leukocyte Esterase-Dipstick Negative /ul (Negative); Nitrite-Dipstick Negative (Negative); Occult Blood-Urine Negative /ul (Negative); Protein-Dipstick Negative (Negative); Specific Gravity, Urine 1.005 (1.002-1.030); Urine Bilirubin Dipstick Negative (Negative); Urine Clarity Sl. Cloudy (Clear); Urine Urobilinogen Normal (Normal)
[2022-12-08 15:17] LABS: Squamous Epithelial Cells - UA 0-5 SEEN /hpf (5-10)
[2022-12-08 15:42] VITALS: BP 158/81; PULSE 88; RESP 18; O2SAT 100
[2022-12-08 17:13] VITALS: BP 151/68; PULSE 74; PULSE 76; RESP 18; TEMP 36.4; O2SAT 100
--- NOTE | 2022-12-08 17:37 | HP.PCM.HOS_ITS ---
HPI - General General Date of Admission: 12/08/22 Date of Service: 12/08/22 Chief Complaint: Fall on November 14 about 3 weeks ago HPI Narrative LEW HUDSON, is a 87 F who was sent by Dr. Kahn for admission after patient had fall with tailbone pain about 3 weeks ago. Patient was standing near the door of restaurant and when another person opens a door and she fell down on buttock and had back pain. Initially, she saw orthopedic surgeon Dr. Yu offered 2 days and had an x-ray and found both hip prosthesis after hip replacement were intact. She describes her pain as between buttocks along cleft which goes laterally in both buttocks and pelvic region. She denies radiation of the pain to thighs. She has separate pain in the left leg below her left knee. She has left TKR but she did well after rehab at that time. Her pain was not getting better and therefore patient had MRI which I cannot see in our system was found to have sacral fracture. In ED patient had CT pelvis which had artifacts due to bilateral hip prosthesis and could not see fracture well She is further admitted for pain control and rehab. No fever. [facility] Medical History Bilateral shoulder pain COPD (chronic obstructive pulmonary disease) GERD (gastroesophageal reflux disease) Goiter Hemorrhoids Hyperlipidemia Idiopathic thrombocythemia Left hip pain Macular degeneration Nodule of left lung Nonrheumatic tricuspid valve regurgitation Osteoarthritis Osteoporosis Pancreatic cyst Pericardial effusion Right hip pain Right knee pain Secondary pulmonary arterial hypertension Vertigo Vitamin D deficiency Home Medications albuterol sulfate 90 mcg/actuation aerosol inhaler (Ventolin HFA) 1 puff inhalation Q6H PRN Sob &/Or Wheezing 02/26/18 [History Last Taken Unknown] calcium phosphate 250 mg-vit D3 12.5 mcg (500 unit) chewable tablet (Citracal-D3 Gummies) 1 tab PO DAILY 02/26/18 [History Last Taken 12/07/22] cholecalciferol (vitamin D3) 25 mcg (1,000 unit) capsule 1,000 unit PO DAILY 0 02/26/18 [History Last Taken 12/07/22] docusate sodium 100 mg capsule (Stool Softener) 100 mg PO DAILY 02/26/18 [History Last Taken 12/07/22] fluticasone propionate 50 mcg/actuation nasal spray,suspension (Flonase Allergy Relief) 1 spray intranasal DAILY PRN Allergies 02/26/18 [History Last Taken 02/21] guaifenesin 600 mg tablet, extended release 12 hr (Mucinex) 600 mg PO Q12H PRN Cough 02/26/18 [History Last Taken 12/08/22] magnesium oxide 500 mg capsule 500 mg PO DAILY 02/26/18 [History Last Taken 12/07/22] zoledronic acid 5 mg/100 mL in mannitol 5 %-water intravenous piggybck (Reclast) 1 dose .Route .Q2YEAR 02/26/18 [History Last Taken Unknown] coenzyme Q10 100 mg capsule (Co Q-10) 200 mg PO DAILY 02/27/18 [History Last Taken 12/07/22] metoprolol tartrate 25 mg tablet 12.5 mg PO ONCE HTN 02/20/19 [History Last Taken 12/07/22] simethicone 180 mg capsule (Gas-X Ultra-Strength) 180 mg PO BID PRN Gastric Reflux 02/26/20 [History Last Taken 12/07/22] meclizine 25 mg tablet 25 mg PO DAILY DIZZINESS 02/24/21 [History Last Taken 12/07/22] hydroxyurea 500 mg capsule 500 mg PO DAILY 09/14/22 [History Last Taken 12/07/22] cetirizine 10 mg tablet (Zyrtec) 10 mg PO DAILY ALLERGIES 12/08/22 [History Last Taken 12/08/22] hydrocodone-acetaminophen 5-325mg 5mg-325mg 1 tab PO 4XD PAIN 12/08/22 [History Last Taken 12/08/22] ibuprofen 200 mg tablet 400 mg PO Q6H PRN Pain 12/08/22 [History Last Taken 12/07/22] Allergy/AdvReac Type Severity Reaction Status Date / Time amoxicillin AdvReac Upset Verified 12/08/22 12:45 Stomach atorvastatin [From Lipitor] AdvReac myalgias Verified 12/08/22 12:45 ciprofloxacin [From Cipro] AdvReac Itching Verified 12/08/22 12:45 clarithromycin [From Biaxin] AdvReac Vomiting Verified 12/08/22 12:45 thiopental [From Pentothal] AdvReac Nausea Verified 12/08/22 12:45 Family History Brother CAD (coronary artery disease) Diabetes Father Diabetes Myocardial infarction Surgical History H/O colectomy H/O shoulder surgery H/O total knee replacement (06/2018) History of carpal tunnel release History of right and left heart catheterization (09/22/13) History of right hip replacement History of total left hip replacement Hx of cholecystectomy S/P tendon repair Social History Smoking Status: Never smoker alcohol intake: never ROS ROS Narrative Constitutional: Reports pain in tailbone. No fever. HEENT: Reports systems reviewed and no addt'l complaints, except as documented Respiratory/Chest: No acute shortness of breath or respiratory distress or wheezing. CVS: No acute chest pain or tightness or pressure. Gastrointestinal: Denies coffee ground emesis, hematemesis or vomiting Genitourinary: Denies burning urination or new urinary tract symptoms Musculoskeletal: As described in HPI. Neurologic: Denies seizure-like symptoms. No acute strokelike symptoms. skin: No ulcer. No rash Endocrinology: Reports systems reviewed and no addt'l complaints, except as documented Hematologic/Lymphatic: Reports systems reviewed and no addt'l complaints, except as documented Rest 14 ROS are negative except as mentioned in HPI Vital Signs Vital Signs Vital Signs: 12/08/22 12:43 12/08/22 15:42 12/08/22 17:13 Temperature 98 F 97.5 F L Temperature Source Temporal Temporal Pulse Rate 95 88 74 Respiratory Rate 16 18 18 Blood Pressure 150/53 H 158/81 H 151/68 H Blood Pressure Mean 85 106 95 Pulse Ox 100 100 100 Oxygen Delivery Method Room Air Room Air Room Air 12/08/22 17:13 Temperature Temperature Source Pulse Rate 76 Respiratory Rate 18 Blood Pressure 151/68 H Blood Pressure Mean 95 Pulse Ox 100 Oxygen Delivery Method Room Air Weight Weight: 126 lb 15.78 oz Body Mass Index (BMI) 24.7 Physical Exam Narrative General: Alert, Oriented x3, Cooperative HEENT: Atraumatic, PERRLA, EOMI, Normocephalic Oral: Oral mucosa moist. No Gingival or Mucosal Lesions/ Ulcerations Neck: Supple, No JVD, Negative Carotid Bruits Lungs: Air entry diminished in bilateral lung bases. No crepitation/rhonchi Cardiovascular: Regular rate, Regular Rhythm, Normal S1, Normal S2, systolic murmur LSB and right second ICS. Abdomen: Bowel Sounds Present, Soft, Non Tender, Non-Distended : No renal angle tenderness. No suprapubic tenderness. Extremities: No edema, Capillary Refill Less than 3 Seconds Skin: No rashes, No breakdown Musculoskeletal: Left TKR. No Tenderness to Palpation of Joints or Extremities Spine: Tenderness along midline and sacral area and paraspinal muscles. ROM restricted over spine, lateral flexion. Neurological: Cranial nerves II-XII grossly intact, DTR 2+/4. No acute neurodeficit. Psych/Mental Status: Normal Affect, Appropriate. Results Lab / Micro Data Result Diagrams: 12/08/22 13:55 12/08/22 13:55 Labs: Laboratory Results - last 24 hr 12/08/22 13:55: WBC 7.0, RBC 4.04 L, Hgb 13.7, Hct 40.5, MCV 100.2 H, MCH 33.9 H , MCHC 33.8, RDW Std Deviation 58.4 H, RDW Coeff of Cyril 16.1 H, Plt Count 438, MPV 8.9, Immature Gran % (Auto) 0.300, Neut % (Auto) 77.6 H, Lymph % (Auto) 11.0 L, [place] % (Auto) 9.0, Eos % (Auto) 1.7, Baso % (Auto) 0.4, Absolute Neuts (auto) 5.5, Absolute Lymphs (auto) 0.77 L, Nucleated RBC % 0 12/08/22 13:55: Sodium 132 L, Potassium 3.6, Chloride 99, Carbon Dioxide 27.0, Anion Gap 6, BUN 9, Creatinine 0.50 L, Estim Creat Clear Calc 28.47, Est GFR (MDRD) Af Amer 151, Est GFR (MDRD) Non-Af 125, BUN/Creatinine Ratio 18.1, Glucose 95, Calcium 9.0 12/08/22 14:50: Urine Color Yellow, Urine Clarity Sl. Cloudy, Urine pH 7.0, Ur Specific [place] 1.005, Urine Protein Negative, Urine Glucose (UA) Normal, Urine Ketones 15 H, Urine Occult Blood Negative, Urine Nitrite Negative, Urine Bilirubin Negative, Urine Urobilinogen Normal, Ur Leukocyte Esterase Negative, Urine RBC 0 SEEN, Urine WBC 0 SEEN, Ur Squamous Epith Cells 0-5 SEEN, Urine Bacteria 0 SEEN, Urine Mucus 0 SEEN Radiology Impression Pelvis CT 12/08/22 14:09 IMPRESSION: Limited visualization of the pelvis due to beam hardening artifact from prior bilateral hip replacements. Electronically Signed: Avelino Mclain MD at 14:42 EDT , Assessment & Plan Assessment/Plan (1) Closed sacral fracture: (2) Fall: PLAN: Plan This is a 87-year-old female who is being admitted for pain after fall. 1. Acute debility, could not ambulate due to sacral fracture after fall: Patient is being admitted to [facility] floor. Pain control on [place] and ibuprofen. Dr. Chris Kahn orthospine consult. The fluid. Muscle relaxant ordered. PT and OT ordered. 2. History of pericardial effusion, pulmonary hypertension and dyslipidemia: She had cardiac cath in 2013 for shortness of breath and found to have PASP was elevated 45 mmHg.Patient had last echo in 2019 reported EF 55%, stage I diastolic dysfunction mild TR. PASP 30 mmHg. No pericardial effusion was found at that time. Patient does not have acute shortness of breath or chest pain or pressure or tightness. Home medications continued 3. Degenerative arthritis, osteoporosis: Patient on Reclast every 2-year, calcium and vitamin D. Calcium and vitamin D continued. 4. History of COPD: On albuterol inhaler as needed. Patient not on a scheduled inhaler but on Mucinex and Flonase nasal spray. Patient does not seem to be in acute exacerbation. 5. GERD: On PPI. 6. Chronic idiopathic thrombocythemia: Platelet count is 438. Patient on hydroxyurea continued. Living will/advanced directive/end of life care: Patient does have living will or advanced directive. After discussion of benefits/risks procedures involved with full code, DNR CC arrest and DNR CC, the patient and her opted for full code. Patient does want artificial life support including intubation, tube feed, ventilator and/chest compression, central venous catheter, vasopressor and DC shock if needed Total time spent in [id number] encounter in discussion of advanced directive 17 minutes. Clinical Impression(s) from Imaging Studies Pelvis CT 12/08/22 14:09 IMPRESSION: Limited visualization of the pelvis due to beam hardening artifact from prior bilateral hip replacements. Laboratory Results 12/08/22 13:55: WBC 7.0, RBC 4.04 L, Hgb 13.7, Hct 40.5, MCV 100.2 H, MCH 33.9 H , MCHC 33.8, RDW Std Deviation 58.4 H, RDW Coeff of Cyril 16.1 H, Plt Count 438, MPV 8.9, Immature Gran % (Auto) 0.300, Neut % (Auto) 77.6 H, Lymph % (Auto) 11.0 L, [place] % (Auto) 9.0, Eos % (Auto) 1.7, Baso % (Auto) 0.4, Absolute Neuts (auto) 5.5, Absolute Lymphs (auto) 0.77 L, Nucleated RBC % 0 12/08/22 13:55: Sodium 132 L, Potassium 3.6, Chloride 99, Carbon Dioxide 27.0, Anion Gap 6, BUN 9, Creatinine 0.50 L, Estim Creat Clear Calc 28.47, Est GFR (MDRD) Af Amer 151, Est GFR (MDRD) Non-Af 125, BUN/Creatinine Ratio 18.1, Glucose 95, Calcium 9.0 12/08/22 14:50: Urine Color Yellow, Urine Clarity Sl. Cloudy, Urine pH 7.0, Ur Specific [place] 1.005, Urine Protein Negative, Urine Glucose (UA) Normal, Urine Ketones 15 H, Urine Occult Blood Negative, Urine Nitrite Negative, Urine Bilirubin Negative, Urine Urobilinogen Normal, Ur Leukocyte Esterase Negative, Urine RBC 0 SEEN, Urine WBC 0 SEEN, Ur Squamous Epith Cells 0-5 SEEN, Urine Bacteria 0 SEEN, Urine Mucus 0 SEEN Charges/Coding Visit Charges Inpatient E&M: 75069 Init Hosp L3 Procedures Hospitalists Procedures: 81035 Advncd Care Plan 30 Min
[2022-12-08 18:10] VITALS: BMI 24.7
[2022-12-08 18:19] VITALS: BP 154/75; PULSE 75; RESP 16; TEMP 36.8; O2SAT 100
[2022-12-08] MEDS: Lactated Ringers 1,000 ML 100 ML IV (19:30)
[2022-12-08] MEDS: tiZANidine HCl 2 MG Tablet PO (20:22)
[2022-12-08] MEDS: Senna/Docusate Sodium 1 Tablet 2 TABLET PO (20:23)
[2022-12-08] MEDS: guaiFENesin 600 MG Tablet PO (20:25)
[2022-12-08] MEDS: Enoxaparin 30 MG/0.3 ML Syringe SC (22:38)
[2022-12-09 02:12] VITALS: BMI 24.0
[2022-12-09] MEDS: HYDROcodone Bitartrate/Apap 5/325 Tablet PO ×3 (03:10→18:40)
[2022-12-09 03:40] VITALS: BP 142/78; PULSE 80; RESP 18; TEMP 36.7; O2SAT 96
[2022-12-09 06:04] LABS: Absolute Lymphocyte Count 0.79 X10^3/uL (0.83-4.51); Absolute Neutrophil Count 3.8 X10^3/uL (2.0-7.7); Basophil# 0.04 X10^3/uL; Basophil% 0.7 % (0-1); Eosinophil# 0.13 X10^3/uL; Eosinophils% 2.3 % (0-5); Hematocrit 36.6 % (37-47); Hemoglobin 12.2 g/dL (12.0-15.0); Lymphocyte # 0.79 X10^3/ul (0.83-4.51); Mean Corp Hgb Conc 33.3 g/dL (32-36); Mean Corpuscular Hgb 34.2 pg (27.0-32.0); Mean Corpuscular Volume 102.5 fL (81-99); Monocyte# 0.84 X10^3/uL; Monocyte% 14.9 % (0-10); NRBC Flagged by Analyzer 0 % (0-5); Neutrophil # 3.83 X10^3/uL (2.7-7.7); Neutrophil % 67.7 % (47-70); Platelet Count 393 K/mm3 (150-450); RBC Distribution Width CV 15.9 % (11.6-14.6); Red Blood Count 3.57 M/mm3 (4.2-5.4); White Blood Count 5.7 K/mm3 (4.4-11.0)
[2022-12-09 06:38] LABS: Anion Gap 7 (5-15); BUN 9 mg/dL (7-18); Calcium,Total 8.2 mg/dL (8.5-10.1); Chloride 108 mmol/L (98-107); Creatinine, Serum 0.35 mg/dL (0.55-1.02); EST Glomerular Filtration Rate 190 mL/min (>60); Est Glom Filt Rate - Afr Amer 229 mL/min (>60); Estimated Creatinine Clearance 28.47 ml/min; Glucose 107 mg/dL (74-106); Potassium 3.6 mmol/L (3.5-5.1); Sodium Level 137 mmol/L (136-145)
--- NOTE | 2022-12-09 07:12 | PN.HOSP_ITS ---
Reason for Visit Reason for Visit: Diagnoses Unspecified fracture of sacrum, initial encounter for closed fracture (12/08/22) Unspecified fall, initial encounter (12/08/22) Objective Data Objective Data Vital Signs: Vital Signs Temp Pulse Resp BP Pulse Ox O2 Del Method 98.0 F 80 18 142/78 H 96 Room Air 12/09/22 03:40 12/09/22 03:40 12/09/22 03:40 12/09/22 03:40 12/09/22 03:40 12/09/22 03:40 Oxygen Delivery Method Room Air Weight: 55.5 kg Body Mass Index (BMI) 24.0 Intake & Output: Intake and Output for Last 24 Hours 12/07/22 12/08/22 12/09/22 23:59 23:59 23:59 Intake Total 1000 / 1000 Balance 1000 / 1000 Lab / Micro Data Result Diagrams: 12/09/22 05:11 12/09/22 05:11 Labs: Laboratory Results - last 24 hr 12/08/22 13:55: WBC 7.0, RBC 4.04 L, Hgb 13.7, Hct 40.5, MCV 100.2 H, MCH 33.9 H , MCHC 33.8, RDW Std Deviation 58.4 H, RDW Coeff of Cyril 16.1 H, Plt Count 438, MPV 8.9, Immature Gran % (Auto) 0.300, Neut % (Auto) 77.6 H, Lymph % (Auto) 11.0 L, [place] % (Auto) 9.0, Eos % (Auto) 1.7, Baso % (Auto) 0.4, Absolute Neuts (auto) 5.5, Absolute Lymphs (auto) 0.77 L, Nucleated RBC % 0 12/08/22 13:55: Sodium 132 L, Potassium 3.6, Chloride 99, Carbon Dioxide 27.0, Anion Gap 6, BUN 9, Creatinine 0.50 L, Estim Creat Clear Calc 28.47, Est GFR (MDRD) Af Amer 151, Est GFR (MDRD) Non-Af 125, BUN/Creatinine Ratio 18.1, Glucose 95, Calcium 9.0 12/08/22 14:50: Urine Color Yellow, Urine Clarity Sl. Cloudy, Urine pH 7.0, Ur Specific [place] 1.005, Urine Protein Negative, Urine Glucose (UA) Normal, Urine Ketones 15 H, Urine Occult Blood Negative, Urine Nitrite Negative, Urine Bilirubin Negative, Urine Urobilinogen Normal, Ur Leukocyte Esterase Negative, Urine RBC 0 SEEN, Urine WBC 0 SEEN, Ur Squamous Epith Cells 0-5 SEEN, Urine Bacteria 0 SEEN, Urine Mucus 0 SEEN 12/09/22 05:11: Sodium 137, Potassium 3.6, Chloride 108 H, Carbon Dioxide 22.0, Anion Gap 7, BUN 9, Creatinine 0.35 L, Estim Creat Clear Calc 28.47, Est GFR (MDRD) Af Amer 229, Est GFR (MDRD) Non-Af 190, BUN/Creatinine Ratio 26.0 H, Glucose 107 H, Calcium 8.2 L 12/09/22 05:11: WBC 5.7, RBC 3.57 L, Hgb 12.2, Hct 36.6 L, MCV 102.5 H, MCH 34.2 H, MCHC 33.3, RDW Std Deviation 60.0 H, RDW Coeff of Cyril 15.9 H, Plt Count 393, MPV 9.0, Immature Gran % (Auto) 0.400, Neut % (Auto) 67.7, Lymph % (Auto) 14.0 L , [place] % (Auto) 14.9 H, Eos % (Auto) 2.3, Baso % (Auto) 0.7, Absolute Neuts (auto) 3.8, Absolute Lymphs (auto) 0.79 L, Nucleated RBC % 0 Radiography Diagnostic Testing: Radiology Impression Pelvis CT 12/08/22 14:09 IMPRESSION: Limited visualization of the pelvis due to beam hardening artifact from prior bilateral hip replacements. Electronically Signed: Avelino Mclain MD at 14:42 EDT ,
[2022-12-09 08:53] VITALS: BP 126/55; PULSE 70; RESP 18; TEMP 36.6; O2SAT 100
[2022-12-09] MEDS: Enoxaparin 30 MG/0.3 ML Syringe SC (10:16)
[2022-12-09] MEDS: Hydroxyurea 500 MG Capsule PO (10:16)
[2022-12-09] MEDS: Magnesium Chloride 64 MG Delay Rel.Tablet 128 MG PO (10:19)
[2022-12-09] MEDS: Cholecalciferol (VIT D3) 25 MCG TABLET (1,000 UNITS) PO (10:22)
[2022-12-09] MEDS: guaiFENesin 600 MG Tablet PO (10:38)
[2022-12-09 14:46] VITALS: BP 114/42; PULSE 79; RESP 16; TEMP 36.5; O2SAT 97
[2022-12-09] MEDS: Acetaminophen 500 MG Tablet 1000 MG PO (14:48)
[2022-12-09] MEDS: Arthritis Pain Compound 60 CLICK TUBE TOPICAL (15:09)
--- NOTE | 2022-12-09 15:46 | DCINST_ITS ---
Discharge Instructions Diet Discharge Diet: No restrictions Activity Discharge Activity: - (Use walker, increase activity as tolerated) Follow Up Care Test Results: Test results from this visit will be discussed in further detail at your follow- up appointment, if applicable. Discharge Plan Admission Admit Date/Time: 12/08/22 17:34 Primary Reason for Your Visit: Back and leg pain Attending Provider: Tamica Light Primary Care Provider: Nathan Vanegas Consulting Providers: Chris Kahn ; Atif Ndiaye Instructions Patient Instructions: ED Fall Prevention Additional Instructions / Restrictions: DISCHARGE INSTRUCTIONS PLEASE READ *Please take this with you to your next doctors appointment* -You recently were given a 3-day supply of hydrocodone acetaminophen on 12/07, you will have several additional days of medication sent to your pharmacy that you can take up to 4 times daily as needed -Would also advise taking 1000 mg of Tylenol every 8 hours scheduled for the next 4 to 5 days. It will be important that you do not drink alcohol when you are taking these doses of Tylenol. It will also be important that you do not take any additional products containing tylenol in them aside from the hydrocodone/acetaminophen which you can take up to 4 times a day as any additional be over the recommended daily limit -Would advise obtaining Voltaren gel [id number] at your pharmacy to use as a topical agent to help an additional pain control -Please follow with your orthopedic doctor as previously scheduled or as needed -Please call your primary care provider's office upon discharge to schedule a hospital follow up within 1 week. -For any concerning signs or symptoms please call 911 or proceed to the nearest emergency department Discharge Orders/Prescriptions Prescriptions: New hydrocodone-acetaminophen 5-325 mg Tablet 1 tab PO 4X/DAY PRN PRN (Reason: PAIN 6-10) 5 Days Qty: 20 0RF acetaminophen 500 mg Tablet 1,000 mg PO Q8 6 Days Qty: 36 0RF Continued calcium phosphate-vitamin D3 [Citracal-D3 Gummies] 250 mg calcium- 500 unit tablet,chewable 1 tab PO DAILY fluticasone propionate [Flonase Allergy Relief] 50 mcg/actuation spray,suspension 1 spray INTRANASAL DAILY PRN (Reason: Allergies) magnesium oxide 500 mg capsule 500 mg PO DAILY guaifenesin [Mucinex] 600 mg tablet extended release 12hr 600 mg PO Q12H PRN (Reason: Cough) zoledronic [id number] [Reclast] 5 mg/100 mL piggyback 1 dose .Route .Q2YEAR Label Comments: .Qyear Rx Instructions: .Qyear docusate sodium [Stool Softener] 100 mg capsule 100 mg PO DAILY albuterol sulfate [Ventolin HFA] 90 mcg/actuation HFA aerosol inhaler 1 puff INHALATION Q6H PRN (Reason: Sob &/Or Wheezing) cholecalciferol (vitamin D3) 1,000 unit capsule 1,000 unit PO DAILY coenzyme Q10 [Co Q-10] 100 mg capsule 200 mg PO DAILY hydroxyurea 500 mg capsule 500 mg PO DAILY metoprolol tartrate 25 mg tablet 12.5 mg PO DAILY PRN (Reason: heart flutter) simethicone [Gas-X Ultra-Strength] 180 mg capsule 180 mg PO BID PRN (Reason: Gastric Reflux) cetirizine [Zyrtec] 10 mg Tablet 10 mg PO DAILY ibuprofen 200 mg Tablet 400 mg PO Q6H PRN (Reason: Pain) Discontinued meclizine 25 mg tablet 25 mg PO DAILY hydrocodone-acetaminophen 5-325 mg tablet 1 tab PO 4XD Referrals / Follow Up: Nathan Vanegas DO [Primary Care Provider] - Within 1 Week Disposition Disposition (needs filled in before D/C Order can be placed): Home, Self Care
--- NOTE | 2022-12-09 15:47 | CASEMGMT ---
RN CM in to discuss discharge needs with patient. RN CARLOS reviewed therapy progress with patient. Patient agreeable to [facility]. A list of [facility] providers including quality and resource use data and consistent with the patient?s preferred geographical region, medical needs, and insurance network were provided from the [employer] Guide. Patient prefers [facility], referral made to [facility] and will follow up Sunday with acceptance. Patient able to discharge home with [facility] follow up on Sunday.
--- NOTE | 2022-12-09 15:49 | DS.PCM_ITS ---
Providers Date of Admission: 12/08/22 Date of Discharge: 12/09/22 Primary Care Physician: Dr. Nathan Vanegas, Consultations 12/08/22 22:25 Consult: Orthopedics Routine Consulting Provider: Chris Kahn Reason for Consult: fx EMERGENT Consult: Yes MD Notified: Yes Date Notified: 12/08/22 Time Notified: 22:26 Method of Notification: Verbal Comments:: ED talked to him Reason For Visit: BACK PAIN, SACRAL BONE FRACTURE Diagnosis Discharge Diagnosis (1) Closed sacral fracture: Status: Acute Code(s): S32.10XA - Unspecified fracture of sacrum, initial encounter for closed fracture (2) Fall: Status: Acute Code(s): W19.XXXA - Unspecified fall, initial encounter Plan #Closed sacral fracture #GERD #pancreatic cyst #Hx OA #Hx bilat hip replacements Medications at Discharge Home Medications albuterol sulfate 90 mcg/actuation aerosol inhaler (Ventolin HFA) 1 puff inhalation Q6H PRN Sob &/Or Wheezing 02/26/18 calcium phosphate 250 mg-vit D3 12.5 mcg (500 unit) chewable tablet (Citracal-D3 Gummies) 1 tab PO DAILY 02/26/18 cholecalciferol (vitamin D3) 25 mcg (1,000 unit) capsule 1,000 unit PO DAILY 0 02/26/18 docusate sodium 100 mg capsule (Stool Softener) 100 mg PO DAILY 02/26/18 fluticasone propionate 50 mcg/actuation nasal spray,suspension (Flonase Allergy Relief) 1 spray intranasal DAILY PRN Allergies 02/26/18 guaifenesin 600 mg tablet, extended release 12 hr (Mucinex) 600 mg PO Q12H PRN C ough 02/26/18 magnesium oxide 500 mg capsule 500 mg PO DAILY 02/26/18 zoledronic acid 5 mg/100 mL in mannitol 5 %-water intravenous piggybck (Reclast) 1 dose .Route .Q2YEAR 02/26/18 coenzyme Q10 100 mg capsule (Co Q-10) 200 mg PO DAILY 02/27/18 metoprolol tartrate 25 mg tablet 12.5 mg PO DAILY PRN heart flutter 02/20/19 simethicone 180 mg capsule (Gas-X Ultra-Strength) 180 mg PO BID PRN Gastric Reflux 02/26/20 hydroxyurea 500 mg capsule 500 mg PO DAILY 09/14/22 cetirizine 10 mg tablet (Zyrtec) 10 mg PO DAILY ALLERGIES 12/08/22 ibuprofen 200 mg tablet 400 mg PO Q6H PRN Pain 12/08/22 acetaminophen 500 mg tablet 1,000 mg PO Q8 6 days #36 tabs 12/09/22 hydrocodone-acetaminophen 5-325mg 5mg-325mg 1 tab PO 4X/DAY PRN PRN PAIN 6-10 5 days #20 tabs 12/09/22 Hospital Course Summary of Care Provided Minutes Spent on Discharge: 32 Hospital Course: 87-year-old female with history of bilateral hip replacements, osteoarthritis, GERD who presented to [facility] 12/08/2022 with tailbone pain for 3 weeks after a fall. Patient was standing near the door of restaurant and when another person opens a door and she fell down on buttock and had back pain.? Initially, she saw orthopedic surgeon Dr. Yu after 2 days and had an x-ray and found both hip prosthesis after hip replacement were intact. She continued to have pain and went back to the office and saw Dr. Kahn with orthospine and did a repeat x-ray and noted sacral fracture. She was then sent to the ED for admission for possible rehab facility placement and it was recommended to obtain a CT scan of the pelvis to further evaluate fracture. CT obtained. There is no displacement of sacral fracture. Evaluated patient in the a.m. she reported she slept well and is still a pain when she does certain movements or when she changes certain positions however she worked with physical therapy and they felt she was okay for home, her regimen for pain in the hospital was also all oral medication. Does not need placement at this time, did did report she was already told that these fractures can take a long time to heal and can cause pain for a period of time, she is agreeable to discharge home with oral pain control. Discussed topicals and scheduling Tylenol as well as providing longer course of pain medication during this acute period. On the day of discharge she reported she slept well last night and does well when she is laying down and will have the pain when she is up and moving around worked with therapy well and I did not think she needed placement. Discharge instructions as followed: DISCHARGE INSTRUCTIONS PLEASE READ *Please take this with you to your next doctors appointment* -You recently were given a 3-day supply of hydrocodone acetaminophen on 12/07, you will have several additional days of medication sent to your pharmacy that you can take up to 4 times daily as needed -Would also advise taking 1000 mg of Tylenol every 8 hours scheduled for the next 4 to 5 days.? It will be important that you do not drink alcohol when you are taking these doses of Tylenol.? It will also be important that you do not take any additional products containing tylenol in them aside from the hydrocodone/acetaminophen which you can take up to 4 times a day as any additional be over the recommended daily limit -Would advise obtaining Voltaren gel [id number] at your pharmacy to use as a topical agent to help an additional pain control -Please follow with your orthopedic doctor as previously scheduled or as needed -Please call your primary care provider's office upon discharge to schedule a hospital follow up within 1 week. -For any concerning signs or symptoms please call 911 or proceed to the nearest emergency department Physical Exam Narrative General: Alert, oriented, no apparent distress, so patient walk and sit down on the bed, helped her change in a nightgown and she was in no acute distress, was able to lay back in bed and was resting comfortably HEENT: Atraumatic, normocephalic Eyes: Anicteric, normal conjunctiva, extraocular movements grossly intact Neck: Supple Respiratory: Clear to auscultation bilaterally, normal respiratory effort Cardiovascular: Regular rate and rhythm GI: Soft, nontender, nondistended Extremities: No edema Musculoskeletal: Moving all extremities Neuro: No overt focal neurological deficits Skin: No rashes appreciated Psych: Cooperative Weight / BMI Weight Weight: 55.5 kg Body Mass Index (BMI) 24.0 ABG / Lab / Microbiology Data Result Diagrams: 12/09/22 05:11 12/09/22 05:11 Laboratory: Laboratory Results - last 24 hr 12/09/22 05:11: Sodium 137, Potassium 3.6, Chloride 108 H, Carbon Dioxide 22.0, Anion Gap 7, BUN 9, Creatinine 0.35 L, Estim Creat Clear Calc 28.47, Est GFR (MDRD) Af Amer 229, Est GFR (MDRD) Non-Af 190, BUN/Creatinine Ratio 26.0 H, Glucose 107 H, Calcium 8.2 L 12/09/22 05:11: WBC 5.7, RBC 3.57 L, Hgb 12.2, Hct 36.6 L, MCV 102.5 H, MCH 34.2 H, MCHC 33.3, RDW Std Deviation 60.0 H, RDW Coeff of Cyril 15.9 H, Plt Count 393, MPV 9.0, Immature Gran % (Auto) 0.400, Neut % (Auto) 67.7, Lymph % (Auto) 14.0 L , [place] % (Auto) 14.9 H, Eos % (Auto) 2.3, Baso % (Auto) 0.7, Absolute Neuts (auto) 3.8, Absolute Lymphs (auto) 0.79 L, Nucleated RBC % 0 D/C Instructions Discharge Diet: No restrictions Meaningful Use Info Meaningful Use Diagnoses (Choose all that apply): None applicable Discharge Plan Admission Admit Date/Time: 12/08/22 17:34 Primary Reason for Your Visit: Back and leg pain Attending Provider: Tamica Light Primary Care Provider: Nathan Vanegas Consulting Providers: Chris Kahn ; Atif Ndiaye Instructions Patient Instructions: ED Fall Prevention Additional Instructions / Restrictions: DISCHARGE INSTRUCTIONS PLEASE READ *Please take this with you to your next doctors appointment* -You recently were given a 3-day supply of hydrocodone acetaminophen on 12/07, you will have several additional days of medication sent to your pharmacy that you can take up to 4 times daily as needed -Would also advise taking 1000 mg of Tylenol every 8 hours scheduled for the nex t 4 to 5 days. It will be important that you do not drink alcohol when you are taking these doses of Tylenol. It will also be important that you do not take any additional products containing tylenol in them aside from the hydrocodone/acetaminophen which you can take up to 4 times a day as any add itional be over the recommended daily limit -Would advise obtaining Voltaren gel [id number] at your pharmacy to use as a topical agent to help an additional pain control -Please follow with your orthopedic doctor as previously scheduled or as needed -Please call your primary care provider's office upon discharge to schedule a hospital follow up within 1 week. -For any concerning signs or symptoms please call 911 or proceed to the nearest emergency department Discharge Orders/Prescriptions Prescriptions: New hydrocodone-acetaminophen 5-325 mg Tablet 1 tab PO 4X/DAY PRN PRN (Reason: PAIN 6-10) 5 Days Qty: 20 0RF acetaminophen 500 mg Tablet 1,000 mg PO Q8 6 Days Qty: 36 0RF Continued calcium phosphate-vitamin D3 [Citracal-D3 Gummies] 250 mg calcium- 500 unit tablet,chewable 1 tab PO DAILY fluticasone propionate [Flonase Allergy Relief] 50 mcg/actuation spray,suspension 1 spray INTRANASAL DAILY PRN (Reason: Allergies) magnesium oxide 500 mg capsule 500 mg PO DAILY guaifenesin [Mucinex] 600 mg tablet extended release 12hr 600 mg PO Q12H PRN (Reason: Cough) zoledronic ribx-iwvpwylm-mucpl [Reclast] 5 mg/100 mL piggyback 1 dose .Route .Q2YEAR Label Comments: .Qyear Rx Instructions: .Qyear docusate sodium [Stool Softener] 100 mg capsule 100 mg PO DAILY albuterol sulfate [Ventolin HFA] 90 mcg/actuation HFA aerosol inhaler 1 puff INHALATION Q6H PRN (Reason: Sob &/Or Wheezing) cholecalciferol (vitamin D3) 1,000 unit capsule 1,000 unit PO DAILY coenzyme Q10 [Co Q-10] 100 mg capsule 200 mg PO DAILY hydroxyurea 500 mg capsule 500 mg PO DAILY metoprolol tartrate 25 mg tablet 12.5 mg PO DAILY PRN (Reason: heart flutter) simethicone [Gas-X Ultra-Strength] 180 mg capsule 180 mg PO BID PRN (Reason: Gastric Reflux) cetirizine [Zyrtec] 10 mg Tablet 10 mg PO DAILY ibuprofen 200 mg Tablet 400 mg PO Q6H PRN (Reason: Pain) Discontinued meclizine 25 mg tablet 25 mg PO DAILY hydrocodone-acetaminophen 5-325 mg tablet 1 tab PO 4XD Referrals / Follow Up: Nathan Vanegas DO [Primary Care Provider] - Within 1 Week Disposition Disposition (needs filled in before D/C Order can be placed): Home, Self Care Charges/Coding Visit Charges Inpatient E&M: 08421 Disch Hosp >30min
[2022-12-09 18:36] VITALS: BP 136/50; PULSE 81; RESP 18; TEMP 36.8; O2SAT 95
== END 2022-12-09 18:47 | disposition home health service (06) ==
LOC: ED 16:47 → MS3 17:38
PROVIDERS: Admitting Provider Internal Medicine; Emergency Provider Emergency Medicine; PCP Family Medicine; Visit Provider Internal Medicine
DX: S32.10XA Unspecified fracture of sacrum, initial encounter for closed fracture (principal); J44.9 Chronic obstructive pulmonary disease, unspecified; I27.21 Secondary pulmonary arterial hypertension; D47.3 Essential (hemorrhagic) thrombocythemia; Z96.652 Presence of left artificial knee joint; E78.5 Hyperlipidemia, unspecified; W19.XXXA Unspecified fall, initial encounter; Z79.83 Long term (current) use of bisphosphonates; Y92.511 Restaurant or cafe as the place of occurrence of the external cause; Z79.899 Other long term (current) drug therapy; R53.81 Other malaise; K21.9 Gastro-esophageal reflux disease without esophagitis; E55.9 Vitamin D deficiency, unspecified; M81.0 Age-related osteoporosis without current pathological fracture
CPT/HCPCS: 36415; 72192; 80048; 81001; 85025; 94668; 96361; 96372; 96374; 96375; 97162; 97166; 99221; 99252; 99284; J7120; A4216; G0378; G0463

== ENCOUNTER 2023-01-07 22:27 | Inpatient (IN) | payer MEDICARE, OTHER, SELFPAY ==
[2023-01-07 22:29] VITALS: BP 99/45; PULSE 92; RESP 16; TEMP 36.7; O2SAT 100; BMI 24.7
--- NOTE | 2023-01-07 22:47 | CT_ITS ---
EXAM: CT ANGIOGRAPHY ABDOMEN AND PELVIS WITHOUT AND WITH INTRAVENOUS CONTRAST CLINICAL INDICATION: GI bleed TECHNIQUE: Helically acquired angiography images were obtained of the abdomen and pelvis without and with intravenous contrast. This CT exam was performed using one or more of the following dose reduction techniques: automated exposure control, adjustment of the mA and/or kV according to patient size, and/or use of iterative reconstruction technique. MIP reconstructed images were created and reviewed. CONTRAST: IV 100mL [id number] RADIATION DOSE: Total DLP: 788.00 mGy-cm. COMPARISON: Nonenhanced CT of 12/08/2022 and 12/02/2022. FINDINGS: VASCULATURE: AORTA: Abdominal aorta is calcific and is normal in caliber. No dissection. CELIAC TRUNK AND MESENTERIC ARTERIES: SMA and YARITZA enhance normally. Celiac axis is unremarkable. RENAL ARTERIES: No acute findings. No renal artery stenosis is identified. ILIAC ARTERIES: Calcified plaques within the common iliac and common femoral arteries cause less than 50% stenosis. The external iliac arteries are widely patent. LOWER THORAX: Small hiatal hernia. Incidental dependent atelectasis at the lung bases. Coronary artery calcification is present. A small pericardial effusion is present. ABDOMEN: LIVER: Moderate fatty infiltration of the liver. GALLBLADDER AND BILE DUCTS: Unremarkable. No calcified gallstones. No gallbladder distention or wall edema. No intra- or extrahepatic biliary ductal dilation. PANCREAS: Large thin-walled lobulated and minimally septated cystic mass is again seen within the upper abdomen, involving the region of the pancreatic head protruding laterally into the phil hepatis region, extending inferiorly within the mid abdomen to the level of the renal lower poles; this cystic lesion is most likely a pancreatic etiology and measures up to 11.4 cm in transverse diameter by 8.5 cm in AP diameter by 8.7 cm in cephalocaudal dimension. No active bleeding within this mass. SPLEEN: Unremarkable. Normal size without focal cystic or solid mass. ADRENALS: Unremarkable. No nodules. KIDNEYS AND URETERS: Unremarkable. Normal renal size and position. No hydronephrosis. STOMACH AND BOWEL: A trace of minimally hyperattenuating material is seen in the dependent portion of the gastric fundus, surrounded by isodense particulate matter, and this gastric hyperdensity most likely ingested material rather than extravasated contrast as it is not as dense as is typically seen with extravasated contrast. Similar hyperattenuating material is noted within both large and small bowel, also probably due to ingested material but a minimal GI bleed is difficult to exclude as a comparison nonenhanced scan was not obtained. No definite extravasation of contrast into the bowel lumen is seen to indicate an active GI bleed. PELVIS: APPENDIX: No evidence of acute appendicitis. BLADDER: Urinary bladder predominantly obscured by streak artifact. REPRODUCTIVE: Atrophic uterus. No adnexal mass identified when allowing for the streak artifact. ABDOMEN and PELVIS: INTRAPERITONEAL SPACE: Unremarkable. No ascites or other fluid collection. No free air. BONES/JOINTS: Bilateral total hip prostheses are again noted with associated streak artifact. Sacral insufficiency fracture is present with irregular fracture lines extending sagittally through the sacral ala, with surrounding sclerosis. Cortical step-off extends transversely through the sacrum at S3 level, with surrounding sclerosis. SI joints are not abnormally widened. Flowing osteophytes about the lower thoracic disc spaces. Multilevel lumbar disc space narrowing with endplate sclerosis and marginal osteophytes. Extensive lumbar facet arthritis again noted with slight anterolisthesis of L5 on S1. SOFT TISSUES: Small fat-filled periumbilical hernia. LYMPH NODES: Unremarkable. No enlarged lymph nodes. CT/CTA Abd/Pelvis W/WO Contrast IMPRESSION: No active GI bleeding identified, as discussed above. Interval development of sacral insufficiency fracture. Large cystic mass again seen arising in the region of the pancreatic head. Minimal colonic diverticulosis without evidence for acute diverticulitis. Electronically Signed: Papi Waggoner MD at 0:31 EDT ,
--- NOTE | 2023-01-07 22:47 | CT_ITS ---
EXAM: CT HEAD WITHOUT INTRAVENOUS CONTRAST CLINICAL INDICATION: dizziness TECHNIQUE: Multiple axial images were obtained of the head without intravenous contrast. This CT exam was performed using one or more of the following dose reduction techniques: automated exposure control, adjustment of the mA and/or kV according to patient size, and/or use of iterative reconstruction technique. RADIATION DOSE: Total DLP: 779.24 mGy-cm. COMPARISON: No relevant prior studies available. FINDINGS: BRAIN AND EXTRA-AXIAL SPACES: Mild age-related cerebral and cerebellar atrophy with prominence of cortical sulci, basal cisterns, sylvian fissures and ventricles. Moderate patchy chronic small vessel ischemic changes are noted with deep white matter tracts. No intra- or extra-axial hemorrhage. No intracranial mass or mass effect. BONES/JOINTS: Unremarkable. No discrete lytic or blastic abnormalities. VASCULATURE: Atherosclerotic vascular calcification is present. The middle cerebral arteries are not hyperdense. SINUSES: Unremarkable as visualized. Clear. MASTOID AIR CELLS: Unremarkable. Clear. ORBITS: Previous cataract surgery. CT/Brain/Head without Contrast IMPRESSION: Atrophy and chronic small vessel ischemic changes. No acute findings in the head/brain. Electronically Signed: Papi Waggoner MD at 0:11 EDT ,
--- NOTE | 2023-01-07 22:47 | EKG12_ITS ---
Test Reason : GI BLEED Blood Pressure : / mmHG Vent. Rate : 112 BPM Atrial Rate : 112 BPM P-R Int : 128 ms QRS Dur : 072 ms QT Int : 342 ms P-R-T Axes : 059 036 083 degrees QTc Int : 466 ms Sinus tachycardia Otherwise normal ECG Confirmed by TRINH SAUCEDO, KAREN ([id number]), research editor JUSTIN JUDD ([id number]) on 01/09/2023 11:40:43 AM Referred By: Odilon Parra Confirmed By:KAREN TSANG MD
--- NOTE | 2023-01-07 22:47 | RAD_ITS ---
INDICATION: dizziness EXAMINATION/TECHNIQUE: X-RAY - XR Chest 1 View COMPARISON: April 20, 2018. FINDINGS: Right shoulder hardware. Severe left shoulder degenerative change. Spinal curvature convex rightward. Cardiac silhouette unchanged in size compared to prior study. There is no acute airspace consolidation or pleural effusion definitively identified. No adenopathy. No acute fracture. No subdiaphragmatic free air. Some right rib irregularity at the ninth right rib is chronic in appearance. RAD/Chest 1 View (Portable) IMPRESSION: No definite acute cardiopulmonary disease or significant change compared to prior study. Electronically Signed: Greg Shultz MD at 23:33 EDT ,
--- NOTE | 2023-01-07 22:54 | EDS_ITS ---
HPI History of Present Illness Chief Complaint: GI Bleed Informant: patient and family Narrative Narrative: Patient is a 87-year-old female with past medical history hyperlipidemia and recent coccyx/sacral fracture. She states that because of the fracture she has been having difficulty walking for the past few weeks and had with the pain has been taking hydrocodone Tylenol and ibuprofen throughout the day. She states she has been doing this for 2 to 3 weeks. She states that this evening essentially just prior to arrival in the ER that she fell like she was going to get sick and went to the bathroom and had a bout of vomiting and diarrhea and both are bloody in nature. She denies any history of bleeding disorder or blood thinner use and states that since the onset of the symptoms she is also felt lightheaded like she is going to pass out. She denies any abdominal pain or chest pain associated with this. She does state that she is a DNR Comfort Care arrest no intubation [facility] Medical History Bilateral shoulder pain COPD (chronic obstructive pulmonary disease) Depression Fall GERD (gastroesophageal reflux disease) Goiter Hemorrhoids Hyperlipidemia Idiopathic thrombocythemia Left hip pain Macular degeneration Nodule of left lung Nonrheumatic tricuspid valve regurgitation Osteoarthritis Osteoporosis Pancreatic cyst Pericardial effusion Right hip pain Right knee pain Secondary pulmonary arterial hypertension Vertigo Vitamin D deficiency Home Medications albuterol sulfate 90 mcg/actuation aerosol inhaler (Ventolin HFA) 1 puff inhalation Q6H PRN Sob &/Or Wheezing 02/26/18 [History Last Taken Unknown] calcium phosphate 250 mg-vit D3 12.5 mcg (500 unit) chewable tablet (Citracal-D3 Gummies) 1 tab PO DAILY 02/26/18 [History Last Taken 12/07/22] cholecalciferol (vitamin D3) 25 mcg (1,000 unit) capsule 1,000 unit PO DAILY 02/26/18 [History Last Taken 12/07/22] docusate sodium 100 mg capsule (Stool Softener) 100 mg PO DAILY 02/26/18 [History Last Taken 12/07/22] fluticasone propionate 50 mcg/actuation nasal spray,suspension (Flonase Allergy Relief) 1 spray intranasal DAILY PRN Allergies 02/26/18 [History Last Taken 12/07/22] guaifenesin 600 mg tablet, extended release 12 hr (Mucinex) 600 mg PO Q12H PRN Cough 02/26/18 [History Last Taken 12/08/22] magnesium oxide 500 mg capsule 250 mg PO BID 02/26/18 [History Last Taken 12/07/22] zoledronic acid 5 mg/100 mL in mannitol 5 %-water intravenous piggybck (Reclast) 1 dose .Route .Q2YEAR 02/26/18 [History Last Taken Unknown] coenzyme Q10 100 mg capsule (Co Q-10) 200 mg PO BID 02/27/18 [History Last Taken 12/07/22] metoprolol tartrate 25 mg tablet 12.5 mg PO DAILY PRN heart flutter 02/20/19 [History Last Taken 12/07/22] simethicone 180 mg capsule (Gas-X Ultra-Strength) 180 mg PO BID PRN Gastric Reflux 02/26/20 [History Last Taken 12/07/22] hydroxyurea 500 mg capsule 500 mg PO DAILY 09/14/22 [History Last Taken 12/07/22] cetirizine 10 mg tablet (Zyrtec) 10 mg PO DAILY ALLERGIES 12/08/22 [History Last Taken 12/08/22] ibuprofen 200 mg tablet 400 mg PO Q6H PRN Pain 12/08/22 [History Last Taken 12/07/22] acetaminophen 500 mg tablet 1,000 mg (2 x 500 mg) PO Q8 6 days #36 tabs 12/09/22 [Rx Last Taken Unknown] hydrocodone-acetaminophen 5-325mg 5mg-325mg 1 tab PO Q12H PRN PRN PAIN 6-10 [History Last Taken Unknown] meclizine 25 mg chewable tablet (Antivert) 25 mg PO DAILY PRN PRN dizziness 01/07/23 [History Last Taken Unknown] multivitamin-ferrous fumarate-folic acid 18 mg-400 mcg tablet (Centrum Women) 1 tab PO DAILY 01/07/23 [History Last Taken Unknown] vitamin A 2,500 unit-vit C 100 mg-biotin 2,500 kyv-fesi-jvhtju capsule (Ytnu-Lknj-Okti (vit A,Y-wcvjgy-Uk-Cu)) cap PO BID 01/07/23 [History Last Taken Unknown] Allergy/AdvReac Type Severity Reaction Status Date / Time amoxicillin AdvReac Upset Verified 06/09/23 12:45 Stomach atorvastatin [From Lipitor] AdvReac myalgias Verified 12/08/22 12:45 ciprofloxacin [From Cipro] AdvReac Itching Verified 12/08/22 12:45 clarithromycin [From Biaxin] AdvReac Vomiting Verified 12/08/22 12:45 thiopental [From Pentothal] AdvReac Nausea Verified 12/08/22 12:45 Family History Brother CAD (coronary artery disease) Diabetes Father Diabetes Myocardial infarction Surgical History H/O colectomy H/O shoulder surgery H/O total knee replacement (06/2018) History of appendectomy History of carpal tunnel release History of right and left heart catheterization (09/22/13) History of right hip replacement History of total left hip replacement Hx of cholecystectomy S/P tendon repair Social History Smoking Status: Never smoker alcohol intake: never ROS ROS ED Constitutional Constitutional ED: Denies chills or fever(s) Eyes Eyes: Denies change in vision ENT ENT ED: Denies sore throat Cardiovascular Cardiovascular: Reports racing heartbeat; Denies chest pain or palpitations Respiratory/Chest Respiratory/Chest: Denies cough or dyspnea Gastrointestinal Gastrointestinal: Reports diarrhea, melena, nausea and vomiting; Denies abdominal pain Genitourinary Genitourinary ED: Denies dysuria Musculoskeletal Musculoskeletal: Denies myalgias Integumentary Denies rash Neurologic Neurologic: Reports weakness and other Details: Positive lightheadedness/dizziness ; Denies headache(s) Hematologic/Lymphatic Hematologic/Lymphatic: Denies easy bleeding or easy bruising EXAM Physical Exam Const Vital Signs: 01/07/23 22:29 01/07/23 23:06 01/08/23 00:03 Temperature 98.0 F 97.6 F L Temperature Source Temporal Oral Pulse Rate 92 120 H 109 H Respiratory Rate 16 16 20 H Blood Pressure 99/45 L 118/59 L 147/54 H Blood Pressure Mean 63 78 85 Blood Pressure Source Monitor Monitor Blood Pressure Position Semi-Fowlers Semi-Fowlers Blood Pressure Location Right Arm Left Arm Pulse Ox 100 94 100 Oxygen Delivery Method Room Air Room Air Nasal Cannula Oxygen Flow Rate (L/min) 2 01/08/23 00:06 01/08/23 00:41 01/08/23 00:52 Temperature 97.9 F 97.5 F L Temperature Source Oral Oral Pulse Rate 114 H 121 H 123 H Respiratory Rate 17 13 26 H Blood Pressure 147/54 H 126/57 H 119/60 Blood Pressure Mean 85 80 79 Blood Pressure Source Monitor Blood Pressure Position Semi-Fowlers Blood Pressure Location Left Arm Pulse Ox 100 100 99 Oxygen Delivery Method Nasal Cannula Nasal Cannula Nasal Cannula Oxygen Flow Rate (L/min) 2 2 01/08/23 00:56 01/08/23 01:10 01/08/23 01:11 Temperature 97.2 F L 97.2 F L 97.2 F L Temperature Source Oral Oral Oral Pulse Rate 125 H 122 H 122 H Respiratory Rate 23 H 10 L 11 L Blood Pressure 106/57 L 106/57 L 106/57 L Blood Pressure Mean 73 73 73 Blood Pressure Source Monitor Blood Pressure Position Semi-Fowlers Blood Pressure Location Left Arm Pulse Ox 100 99 99 Oxygen Delivery Method Nasal Cannula Nasal Cannula Nasal Cannula Oxygen Flow Rate (L/min) 2 2 Positive well nourished and well developed General Appearance ED: well developed and pallor HEENT Reports moist mucous membranes HEENT Narrative: No active bleeding or dried blood noted in the posterior pharynx Eyes PERRL and EOMs intact bilaterally General Eye ED: Yes pale conjunctiva Neck supple Resp normal respiratory effort and clear to auscultation bilaterally Cardio regular rhythm Rate: tachycardic and other Other Details: Tachycardic rate with regular rhythm radial pulses are plus 2 out of 4 bilaterally are equal and symmetric GI non-tender and non-distended GI Narrative: Patient has reducible ventral hernia present. No guarding or rigidity. No pulsatile mass or fluid wave. Auscultation: normoactive bowel sounds Palpation: soft Narrative: Rectal tone is normal, stool is melanotic in color and Hemoccult positive. Extremity normal to inspection Neuro oriented x3 and CN's II-XII intact bilaterally Sensorium / Orientation: alert Psych mental status grossly normal Skin Skin Narrative: Skin is pale in color with capillary refill at 3 seconds General Skin Exam: pallor MDM MDM MDM Narrative Medical decision making narrative: Patient presented to the ER mildly tachycardic and hypotensive. She reported bouts of vomiting and diarrhea that was bloody in nature. She states that she does not have a history of bleeding disorder or take blood thinners but she has been taking hydrocodone Tylenol and ibuprofen repeatedly for the last 2 to 3 weeks because of her sacral fracture. I feel this most likely led to the cause of her GI bleed. As she also reported lightheadedness and dizziness there is concern that this could be related to a ruptured aneurysm and therefore noncon trast CT was obtained. CT revealed no acute findings. A CT of the abdomen and pelvis was also obtained to check for the cause of her bleed but none was elicited. As her stool was melanotic patient was started on Protonix bolus and drip. As she was tachycardic and borderline hypotensive with report of hematemesis and hematochezia I did elect to start with trauma blood and then add 2 more units of crossmatched blood. Blood work showed the patient's blood volume to drop by approximately half. As blood volume was replaced patient's color improved and blood pressure stabilized. The patient had no further bouts of hematochezia or hematemesis while in the ER but with the large drop in her blood volume and need for potential EGD and colonoscopy medicine was contacted and they do agree to accept the patient at this time. Plan of care was discussed with the patient and family and both are agreeable to it. History & Record Review Discussion w/independent historian: Patient and Family Lab Data Attestation: I reviewed the patient's lab results. Labs: Laboratory Results - last 24 hr 01/07/23 01/07/23 22:50 22:50 WBC 15.8 H RBC 2.15 L Hgb 7.6 L Hct 22.8 L MCV 106.0 H MCH 35.3 H MCHC 33.3 RDW Std Deviation 59.4 H RDW Coeff of Cyril 15.2 H Plt Count 398 MPV 8.9 Immature Gran % (Auto) 0.700 Neut % (Auto) 75.8 H Lymph % (Auto) 13.2 L [place] % (Auto) 9.2 Eos % (Auto) 0.8 Baso % (Auto) 0.3 Absolute Neuts (auto) 12.0 H Absolute Lymphs (auto) 2.09 Nucleated RBC % 0 PT 14.3 INR 1.1 APTT 26.5 Sodium 132 L Potassium 4.2 Chloride 103 Carbon Dioxide 25.0 Anion Gap 4 L BUN 33 H Creatinine 0.58 Estim Creat Clear Calc 28.47 Est GFR (MDRD) Af Amer 127 Est GFR (MDRD) Non-Af 105 BUN/Creatinine Ratio 57.3 H Glucose 207 H Calcium 8.2 L Total Bilirubin 0.30 Direct Bilirubin 0.09 AST 13 L ALT 17 Alkaline Phosphatase 89 Total Protein 4.6 L Albumin 2.3 L Globulin 2.3 Antibody Screen NEGATIVE Crossmatch See Detail See Detail Radiography Diagnostic Testing: Clinical Impression(s) from Imaging Studies Abdomen/Pelvis CTA 01/07/23 22:47 IMPRESSION: No active GI bleeding identified, as discussed above. Interval development of sacral insufficiency fracture. Large cystic mass again seen arising in the region of the pancreatic head. Minimal colonic diverticulosis without evidence for acute diverticulitis. Electronically Signed: Papi Waggoner MD at 0:31 EDT , Brain CT 01/07/23 22:47 IMPRESSION: Atrophy and chronic small vessel ischemic changes. No acute findings in the head/brain. Electronically Signed: Papi Waggoner MD at 0:11 EDT , Chest X-Ray 01/07/23 22:47 IMPRESSION: No definite acute cardiopulmonary disease or significant change compared to prior study. Electronically Signed: Greg Shultz MD at 23:33 EDT , Chest x-ray interpreted by the emergency medicine physician reveals no acute infiltrate pneumothorax pleural effusion or free air Management Discussion w/another healthcare provider: Hospitalist Discharge Plan Dx/Rx/DC Orders Clinical Impression: Acute blood loss anemia, Acute GI bleeding Disposition Disposition: [facility]
[2023-01-07 23:03] LABS: Absolute Lymphocyte Count 2.09 X10^3/uL (0.83-4.51); Basophil# 0.04 X10^3/uL; Basophil% 0.3 % (0-1); Eosinophil# 0.12 X10^3/uL; Eosinophils% 0.8 % (0-5); Hematocrit 22.8 % (37-47); Hemoglobin 7.6 g/dL (12.0-15.0); Lymphocyte # 2.09 X10^3/ul (0.83-4.51); Lymphocyte % 13.2 % (19-41); Mean Corp Hgb Conc 33.3 g/dL (32-36); Mean Corpuscular Hgb 35.3 pg (27.0-32.0); Mean Platelet Vol. 8.9 fl (6.2-12.0); Monocyte# 1.45 X10^3/uL; Monocyte% 9.2 % (0-10); NRBC Flagged by Analyzer 0 % (0-5); Neutrophil # 12.01 X10^3/uL (2.7-7.7); Neutrophil % 75.8 % (47-70); Platelet Count 398 K/mm3 (150-450); RBC Distribution Width CV 15.2 % (11.6-14.6); RBC Distribution Width SD 59.4 fl (35.1-43.9); Red Blood Count 2.15 M/mm3 (4.2-5.4); White Blood Count 15.8 K/mm3 (4.4-11.0)
[2023-01-07 23:06] VITALS: BP 118/59; PULSE 120; RESP 16; O2SAT 94
[2023-01-07 23:08] LABS: International Normalized Ratio 1.1; Prothrombin Time (Protime)PT. 14.3 SECONDS (11.7-14.9)
[2023-01-07 23:09] LABS: Partial Thromboplast Time 26.5 Seconds (24.1-36.2)
[2023-01-07] MEDS: 0.9% Normal Saline 1,000 ML 999 ML IV (23:12)
[2023-01-07 23:25] LABS: AST(SGOT) 13 U/L (15-37); Alanine Aminotransfer ALT/SGPT 17 U/L (13-56); Albumin, Serum 2.3 g/dL (3.2-5.0); Alkaline Phosphatase 89 U/L (45-117); Anion Gap 4 (5-15); BUN 33 mg/dL (7-18); BUN/Creat Ratio 57.3 RATIO (10-20); Bilirubin, Direct 0.09 mg/dL (0.00-0.30); Calcium,Total 8.2 mg/dL (8.5-10.1); Chloride 103 mmol/L (98-107); Creatinine, Serum 0.58 mg/dL (0.55-1.02); EST Glomerular Filtration Rate 105 mL/min (>60); Est Glom Filt Rate - Afr Amer 127 mL/min (>60); Estimated Creatinine Clearance 28.47 ml/min; Globulin 2.3 g/dL (2.2-4.2); Glucose 207 mg/dL (74-106); Potassium 4.2 mmol/L (3.5-5.1); Protein, Total 4.6 g/dL (6.4-8.2); Sodium Level 132 mmol/L (136-145)
[2023-01-08] VITALS (28 sets, daily range): BP systolic 106–148; BP diastolic 49–80; PULSE 87–125; RESP 10–26; TEMP 36.1–37.6; O2SAT 95–100; BMI 23.4
[2023-01-08] MEDS: Morphine 2 MG/ML Syringe IV ×2 (00:56→03:48)
[2023-01-08] MEDS: Ondansetron 4 MG/2 ML Vial IV (01:02)
--- NOTE | 2023-01-08 01:38 | HP.PCM.HOS_ITS ---
HPI - General General Date of Admission: 01/08/23 Date of Service: 01/08/23 Chief Complaint: Hematemesis and hematochezia HPI Narrative LEW HUDSON, is a 87 F with a significant history of COPD; and hyperlipidemia who presents to the emergency department with hematemesis and hematochezia. Initially she had black vomitus but later on there appeared to be blood in it. Also initially she had melena but later on progressed to hematochezia. Her symptoms of melena started about 2 days before presentation but the hematemesis was on the day of presentation. Patient recently broke her sacrum. She was placed on hydrocodone Tylenol, meloxicam. She stopped taking meloxicam but later on significant she was placed on ibuprofen. She reported lightheadedness. [facility], [facility] Medical History Bilateral shoulder pain COPD (chronic obstructive pulmonary disease) Depression Fall GERD (gastroesophageal reflux disease) Goiter Hemorrhoids Hyperlipidemia Idiopathic thrombocythemia Left hip pain Macular degeneration Nodule of left lung Nonrheumatic tricuspid valve regurgitation Osteoarthritis Osteoporosis Pancreatic cyst Pericardial effusion Right hip pain Right knee pain Secondary pulmonary arterial hypertension Vertigo Vitamin D deficiency Home Medications albuterol sulfate 90 mcg/actuation aerosol inhaler (Ventolin HFA) 1 puff inhalation Q6H PRN Sob &/Or Wheezing 02/26/18 [History Last Taken Unknown] calcium phosphate 250 mg-vit D3 12.5 mcg (500 unit) chewable tablet (Citracal-D3 Gummies) 1 tab PO DAILY 02/26/18 [History Last Taken 12/07/22] cholecalciferol (vitamin D3) 25 mcg (1,000 unit) capsule 1,000 unit PO DAILY 02/26/18 [History Last Taken 12/07/22] docusate sodium 100 mg capsule (Stool Softener) 100 mg PO DAILY 02/26/18 [History Last Taken 12/07/22] fluticasone propionate 50 mcg/actuation nasal spray,suspension (Flonase Allergy Relief) 1 spray intranasal DAILY PRN Allergies 02/26/18 [History Last Taken 12/07/22] guaifenesin 600 mg tablet, extended release 12 hr (Mucinex) 600 mg PO Q12H PRN Cough 02/26/18 [History Last Taken 12/08/22] magnesium oxide 500 mg capsule 250 mg PO BID 02/26/18 [History Last Taken 12/07/22] zoledronic acid 5 mg/100 mL in mannitol 5 %-water intravenous piggybck (Reclast) 1 dose .Route .Q2YEAR 02/26/18 [History Last Taken Unknown] coenzyme Q10 100 mg capsule (Co Q-10) 200 mg PO BID 02/27/18 [History Last Taken 12/07/22] metoprolol tartrate 25 mg tablet 12.5 mg PO DAILY PRN heart flutter 02/20/19 [History Last Taken 12/07/22] simethicone 180 mg capsule (Gas-X Ultra-Strength) 180 mg PO BID PRN Gastric Reflux 02/26/20 [History Last Taken 12/07/22] hydroxyurea 500 mg capsule 500 mg PO DAILY 09/14/22 [History Last Taken 12/07/22] cetirizine 10 mg tablet (Zyrtec) 10 mg PO DAILY ALLERGIES 12/08/22 [History Last Taken 12/08/22] ibuprofen 200 mg tablet 400 mg PO Q6H PRN Pain 12/08/22 [History Last Taken 12/07/22] acetaminophen 500 mg tablet 1,000 mg (2 x 500 mg) PO Q8 6 days #36 tabs 12/09/22 [Rx Last Taken Unknown] hydrocodone-acetaminophen 5-325mg 5mg-325mg 1 tab PO Q12H PRN PRN PAIN 6-10 01/07/23 [History Last Taken Unknown] meclizine 25 mg chewable tablet (Antivert) 25 mg PO DAILY PRN PRN dizziness 01/07/23 [History Last Taken Unknown] multivitamin-ferrous fumarate-folic acid 18 mg-400 mcg tablet (Centrum Women) 1 tab PO DAILY 01/07/23 [History Last Taken Unknown] vitamin A 2,500 unit-vit C 100 mg-biotin 2,500 iit-eddv-yuycum capsule (Pqem-Pouh-Lcvr (vit A,U-vhydia-Av-Cu)) cap PO BID 01/07/23 [History Last Taken Unknown] Allergy/AdvReac Type Severity Reaction Status Date / Time amoxicillin AdvReac Upset Verified 12/08/22 12:45 Stomach atorvastatin [From Lipitor] AdvReac myalgias Verified 12/08/22 12:45 ciprofloxacin [From Cipro] AdvReac Itching Verified 12/08/22 12:45 clarithromycin [From Biaxin] AdvReac Vomiting Verified 12/08/22 12:45 thiopental [From Pentothal] AdvReac Nausea Verified 12/08/22 12:45 Family History Brother CAD (coronary artery disease) Diabetes Father Diabetes Myocardial infarction Surgical History H/O colectomy H/O shoulder surgery H/O total knee replacement (06/2018) History of appendectomy History of carpal tunnel release History of right and left heart catheterization (09/22/13) History of right hip replacement History of total left hip replacement Hx of cholecystectomy S/P tendon repair Social History Smoking Status: Never smoker alcohol intake: never ROS ROS Narrative Pertinent positives and pertinent negatives as noted in HPI. All other systems were reviewed and are negative Vital Signs Vital Signs Vital Signs: 01/07/23 22:29 01/07/23 23:06 01/08/23 00:03 Temperature 98.0 F 97.6 F L Temperature Source Temporal Oral Pulse Rate 92 120 H 109 H Respiratory Rate 16 16 20 H Blood Pressure 99/45 L 118/59 L 147/54 H Blood Pressure Mean 63 78 85 Blood Pressure Source Monitor Monitor Blood Pressure Position Semi-Fowlers Semi-Fowlers Blood Pressure Location Right Arm Left Arm Pulse Ox 100 94 100 Oxygen Delivery Method Room Air Room Air Nasal Cannula Oxygen Flow Rate (L/min) 2 01/08/23 00:06 01/08/23 00:41 01/08/23 00:52 Temperature 97.9 F 97.5 F L Temperature Source Oral Oral Pulse Rate 114 H 121 H 123 H Respiratory Rate 17 13 26 H Blood Pressure 147/54 H 126/57 H 119/60 Blood Pressure Mean 85 80 79 Blood Pressure Source Monitor Blood Pressure Position Semi-Fowlers Blood Pressure Location Left Arm Pulse Ox 100 100 99 Oxygen Delivery Method Nasal Cannula Nasal Cannula Nasal Cannula Oxygen Flow Rate (L/min) 2 2 01/08/23 00:56 01/08/23 01:10 01/08/23 01:11 Temperature 97.2 F L 97.2 F L 97.2 F L Temperature Source Oral Oral Oral Pulse Rate 125 H 122 H 122 H Respiratory Rate 23 H 10 L 11 L Blood Pressure 106/57 L 106/57 L 106/57 L Blood Pressure Mean 73 73 73 Blood Pressure Source Monitor Blood Pressure Position Semi-Fowlers Blood Pressure Location Left Arm Pulse Ox 100 99 99 Oxygen Delivery Method Nasal Cannula Nasal Cannula Nasal Cannula Oxygen Flow Rate (L/min) 2 2 Weight Weight: 57.6 kg Body Mass Index (BMI) 24.7 Physical Exam Narrative Physical exam: General: Well-nourished, well-developed. Head: Normocephalic, atraumatic, no tenderness Eyes: Vision is grossly intact. EOMI ENT, no trauma, moist mucous membranes, no rhinorrhea Neck: Nontender, No thyromegaly. CVS: Regular rate and rhythm. S1-S2 present. No murmur, gallop or rub. Respiratory : clear to auscultation bilaterally, chest wall nontender Abdomen: Soft, nontender, nondistended, normal bowel sounds, no masses : Deferred Back: Nontender, no CVA tenderness, no midline spinal tenderness, deformities, step-offs Extremities: Nontender full range of motion, no trauma Skin: Normal color, no trauma, abrasions Neuro: Alert, oriented, cranial nerves II through XII grossly intact. Psychiatry: Normal mood. Normal affect. Not depressed. Not anxious. Results Lab / Micro Data Attestation: I reviewed the patient's lab results. 01/07/23 22:50 01/07/23 22:50 Labs: Laboratory Results - last 24 hr 01/07/23 22:50: WBC 15.8 H, RBC 2.15 L, Hgb 7.6 L, Hct 22.8 L, MCV 106.0 H, MCH 35.3 H, MCHC 33.3, RDW Std Deviation 59.4 H, RDW Coeff of Cyril 15.2 H, Plt Count 398, MPV 8.9, Immature Gran % (Auto) 0.700, Neut % (Auto) 75.8 H, Lymph % (Auto) 13.2 L, [place] % (Auto) 9.2, Eos % (Auto) 0.8, Baso % (Auto) 0.3, Absolute Neuts (auto) 12.0 H, Absolute Lymphs (auto) 2.09, Nucleated RBC % 0, PT 14.3, INR 1.1, APTT 26.5, Sodium 132 L, Potassium 4.2, Chloride 103, Carbon Dioxide 25.0, Anion Gap 4 L, BUN 33 H, Creatinine 0.58, Estim Creat Clear Calc 28.47, Est GFR (MDRD) Af Amer 127, Est GFR (MDRD) Non-Af 105, BUN/Creatinine Ratio 57.3 H, Glucose 207 H, Calcium 8.2 L, Total Bilirubin 0.30, Direct Bilirubin 0.09, AST 13 L, ALT 17, Alkaline Phosphatase 89, Total Protein 4.6 L, Albumin 2.3 L, Globulin 2.3, Antibody Screen NEGATIVE, Crossmatch See Detail 01/07/23 22:50: Crossmatch See Detail Micro: Microbiology 01/07/23 22:50 Stool Stool Occult Blood (MAURICIO) - Final Occult Blood Positive Radiology Impression Abdomen/Pelvis CTA 01/07/23 22:47 IMPRESSION: No active GI bleeding identified, as discussed above. Interval development of sacral insufficiency fracture. Large cystic mass again seen arising in the region of the pancreatic head. Minimal colonic diverticulosis without evidence for acute diverticulitis. Electronically Signed: Papi Waggoner MD at 0:31 EDT , Brain CT 01/07/23 22:47 IMPRESSION: Atrophy and chronic small vessel ischemic changes. No acute findings in the head/brain. Electronically Signed: Papi Waggoner MD at 0:11 EDT , Chest X-Ray 01/07/23 22:47 IMPRESSION: No definite acute cardiopulmonary disease or significant change compared to prior study. Electronically Signed: Greg Shultz MD at 23:33 EDT , Assessment & Plan Assessment/Plan (1) Acute GI bleeding: (2) Acute blood loss anemia: (3) Closed sacral fracture: QUALIFIERS: Encounter type: initial encounter PLAN: Plan Acute anemia secondary to GI bleed Hemoglobin on presentation was 7.6. His hemoglobin on 12/08/2022 was 13.7; and on 12/09/2022 was 12.2. The patient has dropped 4 points in her hemoglobin. 2 units of packed red blood cells was ordered to receive in the emergency department. Trend H&H. Keep patient NPO. Protonix IV at emergency department and continued. Gastroenterology consult. Sacral fracture Abdomen/pelvis CT showed sacral fracture fracture. Hospitalist agrees with radiologist interpretation. Ultram as needed ordered. DVT prophylaxis: SCDs ordered. Time spent in the patient's overall evaluation,decision-making process, review of diagnostic data, adjustment of management, discussion with other providers, nursing nursing and ancillary staff involved in patient's care documentation, 44 minutes. Charges/Coding Visit Charges Inpatient E&M: 74537 Init Hosp L2
[2023-01-08] MEDS: 0.9% Saline Lock 10 ML Syringe IV ×2 (03:49→22:00)
[2023-01-08 06:53] LABS: Anion Gap 4 (5-15); BUN 25 mg/dL (7-18); BUN/Creat Ratio 66.5 RATIO (10-20); Calcium,Total 7.8 mg/dL (8.5-10.1); Chloride 108 mmol/L (98-107); Creatinine, Serum 0.38 mg/dL (0.55-1.02); EST Glomerular Filtration Rate 172 mL/min (>60); Est Glom Filt Rate - Afr Amer 208 mL/min (>60); Estimated Creatinine Clearance 28.47 ml/min; Glucose 116 mg/dL (74-106); Potassium 4.5 mmol/L (3.5-5.1); Sodium Level 135 mmol/L (136-145)
[2023-01-08] MEDS: Menthol/Lanolin/Calamine/Znox 113 GM Tube 1 APPLIC TOPICAL ×2 (10:43→21:59)
[2023-01-08] MEDS: Loratadine 10 MG Tablet PO (10:44)
--- NOTE | 2023-01-08 11:40 | CASEMGMT ---
RN CARLOS Face to Face with patient for initial transition planning/care coordination assessment. RN CM introduced self and role at [facility]. Patient lying in bed, alert and oriented, daughters at bedside. Patient willing to participate in assessment and is able to answer all questions appropriately. Care providers, pharmacy, and demographics verified. Patient wishes to discharge home, will monitor progress with therapy, possible HHC vs SNF. Patient states she has no further needs or concerns at this time. CM to follow for discharge planning needs that may arise. PCP: Guilherme Specialists: Milady, janitor cleaner; Amado, traffic rate clerk; Pravin Prater, ortho; sarah Kahn Preferred [facility]acy: [facility] Insurance: [facility], [employer] Prescription Benefit: yes Living Will/HPOA: yes, Reinaldo Be LNOK: , daughters Living Arrangements: Patient is currently living alone in a single story condo with no steps. is currently at [facility]. Patient states she was independent at home. Transportation: daughter DME/HHC: Patient has shower chair, raised toilet, cane, walker, grab bars, lift chair, electric scooter. No previous HHC or SNF. Patient prefers [facility] HHC and declines list of HHC agencies. Disposition Plan: TBD, will monitor progress with therapy, anticipate HHC vs SNF Jordyn RAMIRES, RN, CM
--- NOTE | 2023-01-08 12:57 | EX.PCM.CON.G ---
HPI Consult Data Date of Consult: 01/07/23 HPI Narrative Reason for Consultation: GI bleed HPI Narrative: LEW HUDSON, is a 87 F who presents with nausea and bloody diarrhea. She has a past medical history hyperlipidemia and recent coccyx/sacral fracture. She states that because of the fracture she has been having difficulty walking for the past few weeks and had with the pain has been taking hydrocodone Tylenol and ibuprofen throughout the day. She states she has been doing this for 2 to 3 weeks. She states that this evening essentially just prior to arrival in the ER that she fell like she was going to get sick and went to the bathroom and had a bout of vomiting and diarrhea and both are bloody in nature. She denies any history of bleeding disorder or blood thinner use and states that since the onset of the symptoms she is also felt lightheaded like she is going to pass out. She denies any abdominal pain or chest pain. Initially she had black vomitus but later on there appeared to be blood in it. Also initially she had melena but later on progressed to hematochezia. Her symptoms of melena started about 2 days before presentation but the hematemesis was on the day of presentation. She stopped taking meloxicam but later on significant she was placed on ibuprofen. She reported lightheadedness. [facility] Medical History Bilateral shoulder pain COPD (chronic obstructive pulmonary disease) Depression Fall GERD (gastroesophageal reflux disease) Goiter Hemorrhoids Hyperlipidemia Idiopathic thrombocythemia Left hip pain Macular degeneration Nodule of left lung Nonrheumatic tricuspid valve regurgitation Osteoarthritis Osteoporosis Pancreatic cyst Pericardial effusion Right hip pain Right knee pain Secondary pulmonary arterial hypertension Vertigo Vitamin D deficiency Home Medications albuterol sulfate 90 mcg/actuation aerosol inhaler (Ventolin HFA) 1 puff inhalation Q6H PRN Sob &/Or Wheezing 02/26/18 [History Last Taken Unknown] calcium phosphate 250 mg-vit D3 12.5 mcg (500 unit) chewable tablet (Citracal-D3 Gummies) 1 tab PO DAILY 02/26/18 [History Last Taken 12/07/22] cholecalciferol (vitamin D3) 25 mcg (1,000 unit) capsule 1,000 unit PO DAILY 02/26/18 [History Last Taken 12/07/22] docusate sodium 100 mg capsule (Stool Softener) 100 mg PO DAILY 02/26/18 [History Last Taken 12/07/22] fluticasone propionate 50 mcg/actuation nasal spray,suspension (Flonase Allergy Relief) 1 spray intranasal DAILY PRN Allergies 02/26/18 [History Last Taken 12/07/22] guaifenesin 600 mg tablet, extended release 12 hr (Mucinex) 600 mg PO Q12H PRN Cough 02/26/18 [History Last Taken 12/08/22] magnesium oxide 500 mg capsule 250 mg PO BID 02/26/18 [History Last Taken 12/07/22] zoledronic acid 5 mg/100 mL in mannitol 5 %-water intravenous piggybck (Reclast) 1 dose .Route .Q2YEAR 02/26/18 [History Last Taken Unknown] coenzyme Q10 100 mg capsule (Co Q-10) 200 mg PO BID 02/27/18 [History Last Taken 12/07/22] metoprolol tartrate 25 mg tablet 12.5 mg PO DAILY PRN heart flutter 02/20/19 [History Last Taken 12/07/22] simethicone 180 mg capsule (Gas-X Ultra-Strength) 180 mg PO BID PRN Gastric Reflux 02/26/20 [History Last Taken 12/07/22] hydroxyurea 500 mg capsule 500 mg PO DAILY 09/14/22 [History Last Taken 12/07/22] cetirizine 10 mg tablet (Zyrtec) 10 mg PO DAILY ALLERGIES 12/08/22 [History Last Taken 12/08/22] ibuprofen 200 mg tablet 400 mg PO Q6H PRN Pain 12/08/22 [History Last Taken 12/07/22] acetaminophen 500 mg tablet 1,000 mg (2 x 500 mg) PO Q8 6 days #36 tabs 12/09/22 [Rx Last Taken Unknown] hydrocodone-acetaminophen 5-325mg 5mg-325mg 1 tab PO Q12H PRN PRN PAIN 6-10 01/07/23 [History Last Taken Unknown] meclizine 25 mg chewable tablet (Antivert) 25 mg PO DAILY PRN PRN dizziness 01/07/23 [History Last Taken Unknown] multivitamin-ferrous fumarate-folic acid 18 mg-400 mcg tablet (Centrum Women) 1 tab PO DAILY 01/07/23 [History Last Taken Unknown] vitamin A 2,500 unit-vit C 100 mg-biotin 2,500 scf-hvuw-klwlft capsule (Wcrf-Hrvn-Kizv (vit A,J-zgbicq-Di-Cu)) cap PO BID 01/07/23 [History Last Taken Unknown] Allergy/AdvReac Type Severity Reaction Status Date / Time amoxicillin AdvReac Upset Verified 12/08/22 12:45 Stomach atorvastatin [From Lipitor] AdvReac myalgias Verified 12/08/22 12:45 ciprofloxacin [From Cipro] AdvReac Itching Verified 12/08/22 12:45 clarithromycin [From Biaxin] AdvReac Vomiting Verified 12/08/22 12:45 thiopental [From Pentothal] AdvReac Nausea Verified 12/08/22 12:45 Family History Brother CAD (coronary artery disease) Diabetes Father Diabetes Myocardial infarction Surgical History H/O colectomy H/O shoulder surgery H/O total knee replacement (06/2018) History of appendectomy History of carpal tunnel release History of right and left heart catheterization (09/22/13) History of right hip replacement History of total left hip replacement Hx of cholecystectomy S/P tendon repair Social History Smoking Status: Never smoker alcohol intake: never ROS ROS Narrative Pertinent positives and pertinent negatives as noted in HPI. All other systems were reviewed and are negative Lab / Micro Data 01/07/23 22:50 01/08/23 05:45 Labs: Laboratory Results - last 24 hr 01/07/23 22:50: WBC 15.8 H, RBC 2.15 L, Hgb 7.6 L, Hct 22.8 L, MCV 106.0 H, MCH 35.3 H, MCHC 33.3, RDW Std Deviation 59.4 H, RDW Coeff of Cyril 15.2 H, Plt Count 398, MPV 8.9, Immature Gran % (Auto) 0.700, Neut % (Auto) 75.8 H, Lymph % (Auto) 13.2 L, [place] % (Auto) 9.2, Eos % (Auto) 0.8, Baso % (Auto) 0.3, Absolute Neuts (auto) 12.0 H, Absolute Lymphs (auto) 2.09, Nucleated RBC % 0, PT 14.3, INR 1.1, APTT 26.5, Sodium 132 L, Potassium 4.2, Chloride 103, Carbon Dioxide 25.0, Anion Gap 4 L, BUN 33 H, Creatinine 0.58, Estim Creat Clear Calc 28.47, Est GFR (MDRD) Af Amer 127, Est GFR (MDRD) Non-Af 105, BUN/Creatinine Ratio 57.3 H, Glucose 207 H, Calcium 8.2 L, Total Bilirubin 0.30, Direct Bilirubin 0.09, AST 13 L, ALT 17, Alkaline Phosphatase 89, Total Protein 4.6 L, Albumin 2.3 L, Globulin 2.3, Antibody Screen NEGATIVE, Crossmatch See Detail 01/07/23 22:50: Crossmatch See Detail 01/08/23 05:45: Sodium 135 L, Potassium 4.5, Chloride 108 H, Carbon Dioxide 23.0, Anion Gap 4 L, BUN 25 H, Creatinine 0.38 L, Estim Creat Clear Calc 28.47, Est GFR (MDRD) Af Amer 208, Est GFR (MDRD) Non-Af 172, BUN/Creatinine Ratio 66.5 H, Glucose 116 H, Calcium 7.8 L, Magnesium 2.0 Micro: Microbiology 01/07/23 22:50 Stool Stool Occult Blood (MAURICIO) - Final Occult Blood Positive Radiology Impression Abdomen/Pelvis CTA 01/07/23 22:47 IMPRESSION: No active GI bleeding identified, as discussed above. Interval development of sacral insufficiency fracture. Large cystic mass again seen arising in the region of the pancreatic head. Minimal colonic diverticulosis without evidence for acute diverticulitis. Electronically Signed: Papi Waggoner MD at 0:31 EDT , Brain CT 01/07/23 22:47 IMPRESSION: Atrophy and chronic small vessel ischemic changes. No acute findings in the head/brain. Electronically Signed: Papi Waggoner MD at 0:11 EDT , Chest X-Ray 01/07/23 22:47 IMPRESSION: No definite acute cardiopulmonary disease or significant change compared to prior study. Electronically Signed: Greg Shultz MD at 23:33 EDT , Assessment & Plan Assessment/Plan (1) Acute GI bleeding: (2) Acute blood loss anemia: (3) Closed sacral fracture: QUALIFIERS: Encounter type: initial encounter PLAN: Plan 87-year-old with recent closed sacral fracture on NSAIDs presents with abdominal pain, nausea, melanotic stools. Acute anemia secondary to GI bleed Her hemoglobin on presentation was 7.6. Her hemoglobin on 12/08/2022 was 13.7; and on 12/09/2022 was 12.2. The patient has dropped 4 points in her hemoglobin. 2 units of packed red blood cells was ordered to receive in the emergency department. Trend H&H. Keep patient NPO. Protonix IV at emergency department and continued. The plan is for upper endoscopy to evaluate upper GI tract. Charges/Coding Visit Charges Inpatient E&M: 43341 Init Hosp L3
[2023-01-08] MEDS: 0.9% Normal Saline (Pres. free 10 ML Vial (14:06)
--- NOTE | 2023-01-08 14:07 | OP.EGD_ITS ---
Patient Name: Kellie Be Procedure Date: 01/08/2023 1:27 PM Date of : 1935 Age: 87 Procedure: Upper GI endoscopy Indications: Hematemesis, Melena, Active gastrointestinal bleeding Providers: Nagi Larios DO Referring MD: Odilon Parra Medicines: Monitored Anesthesia Care Patient Profile: This is an 87 year old female. Refer to note in patient chart for documentation of history and physical. Patient has symptoms of acute epigastric abdominal pain. Complications: No immediate complications. Procedure: Pre-Anesthesia Assessment: - Prior to the procedure, a History and Physical was performed, and patient medications and allergies were reviewed. The patient is competent. The risks and benefits of the procedure and the sedation options and risks were discussed with the patient. All questions were answered and informed consent was obtained. Patient identification and proposed procedure were verified by the physician. Mental Status Examination: normal. CV Examination: normal. Prophylactic Antibiotics: The patient does not require prophylactic antibiotics. Prior Anticoagulants: The patient has taken no previous anticoagulant or antiplatelet agents. ASA Grade Assessment: III - A patient with severe systemic disease. After reviewing the risks and benefits, the patient was deemed in satisfactory condition to undergo the procedure. The anesthesia plan was to use monitored anesthesia care (MAC). Immediately prior to administration of medications, the patient was re-assessed for adequacy to receive sedatives. The heart rate, respiratory rate, oxygen saturations, blood pressure, adequacy of pulmonary ventilation, and response to care were monitored throughout the procedure. The physical status of the patient was re-assessed after the procedure. After obtaining informed consent, the endoscope was passed under direct vision. Throughout the procedure, the patient's blood pressure, pulse, and oxygen saturations were monitored continuously. The gastroscope was introduced through the mouth, and advanced to the second part of duodenum. The upper GI endoscopy was accomplished without difficulty. The patient tolerated the procedure well. Scope In: 1:37:56 PM Scope Out: 2:01:21 PM Total Procedure Duration Time 0 hours 23 minutes 25 seconds Findings: The examined esophagus was normal. A hiatal hernia was present. A benign-appearing, intrinsic severe stenosis was found at the pylorus. This was traversed. A TTS dilator was passed through the scope. Dilation with a 15 mm pyloric balloon dilator was performed. The dilation site was examined following endoscope reinsertion and showed complete resolution of luminal narrowing. Estimated blood loss was minimal. One spurting cratered duodenal ulcer with a visible vessel was found in the first portion of the duodenum. The lesion was 20 mm in largest dimension. Area was successfully injected with 5 mL of a 1:10,000 solution of epinephrine for drug delivery. Coagulation for hemostasis using monopolar probe was successful. Hemo spray was used in order to temporarily stop bleeding Impression: - Normal esophagus. - Hiatal hernia. - Gastric stenosis was found at the pylorus. Dilated. - One spurting duodenal ulcer with a visible vessel. Injected. Treated with a monopolar probe. - No specimens collected. Recommendation: - NPO. - Continue present medications. Procedure Code(s): --- Professional --- 89373, 59, Esophagogastroduodenoscopy, flexible, transoral; with control of bleeding, any method 92675, Esophagogastroduodenoscopy, flexible, transoral; with dilation of gastric/duodenal stricture(s) (eg, balloon, bougie) 52619, 59,51, Esophagogastroduodenoscopy, flexible, transoral; with directed submucosal injection(s), any substance CPT copyright 2017 [employer]. All rights reserved. The codes documented in this report are preliminary and upon field sales specialist review may be revised to meet current compliance requirements. Nagi Larios DO 01/08/2023 2:06:39 PM This report has been signed electronically. Number of Addenda: 0 Note Initiated On: 01/08/2023 1:27 PM
--- NOTE | 2023-01-08 14:08 | OP.CCLET_ITS ---
01/08/2023 Nathan Vanegas [address] [place] [address] Re : Upper GI endoscopy procedure for Kellie Be Dear Dr. Vanegas This procedure was performed on Sunday, January 08, 2023. My impressions and recommendations are as follows: Impressions : - Normal esophagus. - Hiatal hernia. - Gastric stenosis was found at the pylorus. Dilated. - One spurting duodenal ulcer with a visible vessel. Injected. Treated with a monopolar probe. - No specimens collected. Recommendations : - NPO. - Continue present medications. My findings are described in the full procedure note, which is enclosed. If I can be of further assistance, please feel free to contact me at . Sincerely, Nagi Larios, 01/08/2023 2:06:39 PM This report has been signed electronically.
[2023-01-08] MEDS: Epinephrine (1 mg/ml) 1 MG/ML VIAL (14:12)
--- NOTE | 2023-01-08 14:21 | CHAPLAIN ---
Type of Pastoral Visit ___ Initial Visit ___ Follow-up Visit ___ On-call Visit ___ General Patient Visit ___ Spiritual Assessment ___ Family Conference ___ Bereavement ___ Rapid Response ___ Code Blue ___ Other (describe below) Pastoral Care Referral From ___ Patient ___ Family ___ Nurse ___ Physician ___ Meat Service Team Member ___ Field Representatives Director ___ Other (describe below) Sacrament/Intervention ___ Active listening ___ Anointing ___ Mu-Ism ___ Bereavement ___ Communion ___ Sujata exploration ___ ___ Life review ___ Prayer ___ Reconciliation ___ Sacrament of Sick ___ Supportive presence ___ Wedding ___ Other (describe below) Pastoral Comments patient is out of the room; calling card is left for her
--- NOTE | 2023-01-08 18:05 | OP.EGD_ITS ---
Patient Name: Kellie Be Procedure Date: 01/08/2023 5:30 PM Date of : 1935 Age: 87 Procedure: Upper GI endoscopy Indications: Melena Providers: Nagi Larios DO Referring MD: Odilon Parra Medicines: Monitored Anesthesia Care Patient Profile: This is an 87 year old female. Refer to note in patient chart for documentation of history and physical. Patient has symptoms of acute epigastric abdominal pain. Complications: No immediate complications. Procedure: Pre-Anesthesia Assessment: - Prior to the procedure, a History and Physical was performed, and patient medications and allergies were reviewed. The patient is competent. The risks and benefits of the procedure and the sedation options and risks were discussed with the patient. All questions were answered and informed consent was obtained. Patient identification and proposed procedure were verified by the physician. Mental Status Examination: normal. CV Examination: normal. Prophylactic Antibiotics: The patient does not require prophylactic antibiotics. Prior Anticoagulants: The patient has taken no previous anticoagulant or antiplatelet agents. ASA Grade Assessment: III - A patient with severe systemic disease. After reviewing the risks and benefits, the patient was deemed in satisfactory condition to undergo the procedure. The anesthesia plan was to use monitored anesthesia care (MAC). Immediately prior to administration of medications, the patient was re-assessed for adequacy to receive sedatives. The heart rate, respiratory rate, oxygen saturations, blood pressure, adequacy of pulmonary ventilation, and response to care were monitored throughout the procedure. The physical status of the patient was re-assessed after the procedure. After obtaining informed consent, the endoscope was passed under direct vision. Throughout the procedure, the patient's blood pressure, pulse, and oxygen saturations were monitored continuously. The gastroscope was introduced through the mouth, and advanced to the second part of duodenum. The upper GI endoscopy was accomplished without difficulty. The patient tolerated the procedure well. Scope In: 5:45:20 PM Scope Out: 5:57:47 PM Total Procedure Duration Time 0 hours 12 minutes 27 seconds Findings: The examined esophagus was normal. Hematin (altered blood/nwelcd-vmqyas-hifr material) was found in the gastric body. One oozing cratered duodenal ulcer with a visible vessel was found in the first portion of the duodenum. The lesion was 21 mm in largest dimension. Area was successfully injected with 9 mL of a 1:10,000 solution of epinephrine for drug delivery. Three oozing cratered duodenal ulcers with pigmented material were found in the duodenal bulb. The largest lesion was 4 mm in largest dimension. Coagulation for hemostasis using monopolar probe was successful. Hemo spray was used in order to temporarily stop bleeding Impression: - Normal esophagus. - Hematin (altered blood/dcetei-cydkyz-bxyn material) in the gastric body. - One oozing duodenal ulcer with a visible vessel. Injected. - Multiple oozing duodenal ulcers with pigmented material. Treated with a monopolar probe. - No specimens collected. Recommendation: - [facility] to [facility] care. - NPO. - Continue present medications. Procedure Code(s): --- Professional --- 15209, Esophagogastroduodenoscopy, flexible, transoral; with control of bleeding, any method 36086, 59, Esophagogastroduodenoscopy, flexible, transoral; with directed submucosal injection(s), any substance CPT copyright 2017 [employer]. All rights reserved. The codes documented in this report are preliminary and upon poacher wringer operator review may be revised to meet current compliance requirements. Nagi Larios DO 01/08/2023 6:04:29 PM This report has been signed electronically. Number of Addenda: 0 Note Initiated On: 01/08/2023 5:30 PM
--- NOTE | 2023-01-08 18:05 | OP.CCLET_ITS ---
01/10/2023 Nathan Vanegas [address] [place] [address] Re : Upper GI endoscopy procedure for Kellie Be Dear Dr. Vanegas This procedure was performed on Sunday, January 08, 2023. My impressions and recommendations are as follows: Impressions : - Normal esophagus. - Hematin (altered blood/vvkwej-urhqml-muov material) in the gastric body. - One oozing duodenal ulcer with a visible vessel. Injected. - Multiple oozing duodenal ulcers with pigmented material. Treated with a monopolar probe. - No specimens collected. Recommendations : - Return [facility] to [facility] for [facility]. - NPO. - Continue present medications. My findings are described in the full procedure note, which is enclosed. If I can be of further assistance, please feel free to contact me at . Sincerely, Nagi Larios, 01/08/2023 6:04:29 PM This report has been signed electronically.
--- NOTE | 2023-01-08 18:12 | PCM.HOSP.N ---
Hospitalist Note Patient was seen and examined today, I talked with her daughters were in the room at the time my examination. Patient stated that she did not want to be resuscitated in the event of a cardiopulmonary arrest, she also did not want to be on the ventilator. Patient underwent an EGD today which showed 1 oozing duodenal ulcer with a visible vessel, this area is injected, there is also noted to be multiple oozing duodenal ulcers with pigmented material, these were treated with a monopolar probe. I talked briefly with gastroenterology today, they feel the patient needs repeat EGD tomorrow. I will repeat the patient's H&H tonight.
[2023-01-08 19:08] LABS: Absolute Lymphocyte Count 1.22 X10^3/uL (0.83-4.51); Absolute Neutrophil Count 10.4 X10^3/uL (2.0-7.7); Basophil# 0.06 X10^3/uL; Basophil% 0.5 % (0-1); Eosinophil# 0.03 X10^3/uL; Eosinophils% 0.2 % (0-5); Hematocrit 31.8 % (37-47); Hemoglobin 10.4 g/dL (12.0-15.0); Lymphocyte # 1.22 X10^3/ul (0.83-4.51); Lymphocyte % 9.4 % (19-41); Mean Corp Hgb Conc 32.7 g/dL (32-36); Mean Corpuscular Hgb 32.8 pg (27.0-32.0); Mean Corpuscular Volume 100.3 fL (81-99); Mean Platelet Vol. 8.6 fl (6.2-12.0); Monocyte# 1.08 X10^3/uL; Monocyte% 8.3 % (0-10); NRBC Flagged by Analyzer 0 % (0-5); Neutrophil # 10.44 X10^3/uL (2.7-7.7); Neutrophil % 80.2 % (47-70); POSITIVE MORPHOLOGY YES; Platelet Count 387 K/mm3 (150-450); RBC Distribution Width CV 21.1 % (11.6-14.6); RBC Distribution Width SD 76.5 fl (35.1-43.9); Red Blood Count 3.17 M/mm3 (4.2-5.4)
[2023-01-08 19:11] LABS: Differential Indicated SCAN CRITERIA MET
[2023-01-08 19:30] LABS: Anisocytosis 2+; Macrocytosis 2+; Ovalocyte RARE; Platelet Estimate ADEQUATE (ADEQ); Red Cell Morphology N CHROM NORMAL (NORM C&C)
[2023-01-09] VITALS (13 sets, daily range): BP systolic 124–138; BP diastolic 51–73; PULSE 96–126; RESP 16–18; TEMP 36.3–37.2; O2SAT 96–100
[2023-01-09] MEDS: 0.9% Saline Lock 10 ML Syringe IV (05:25)
--- NOTE | 2023-01-09 13:09 | CASEMGMT ---
Per physician patient would like to go to a prison facility for [facility]hab. SW met with patient. Introduced self and role at [facility]. Patient confirmed she needs some rehab. SW provided patient with a list of prison facility providers including quality and resource use data and consistent with patient?s preferred geographic region, medical needs, and insurance network were provided from the [employer] Guide. Patient said she is interested in TCU. Patient does want to talk with her daughter as well. MING sent a referral to Randi in TCU. Aliyah ANAYA
--- NOTE | 2023-01-09 15:35 | CASEMGMT ---
[facility] TCU can take patient. MING met with patient and let her know this information. Patient was pleased. Patient is going to talk with her family. Plan: [facility] DON ANAYA
--- NOTE | 2023-01-09 15:46 | PCM.PN.HOSP ---
Reason for Visit Reason for Visit: Diagnoses Acute posthemorrhagic anemia (01/08/23) Gastrointestinal hemorrhage, unspecified (01/08/23) Unspecified fracture of sacrum, initial encounter for closed fracture (01/08/23) Subjective Subjective Seen and examined today, her hemoglobin this morning was 10.4. I talked briefly with gastroenterology about her care, I placed her on a diet, I had a discussion with her concerning discharge planning, she feels she may benefit from going to a [facility] facility for short-term rehab. Until that time, she will be monitored for recurrent bleeding. Objective Data Objective Data Vital Signs: Vital Signs Temp Pulse Resp BP Pulse Ox O2 Del Method O2 Flow Rate 97.3 F L 111 H 18 125/59 H 97 Room Air 2 01/09/23 15:17 01/09/23 15:17 01/09/23 15:17 01/09/23 15:17 01/09/23 15:17 01/09/23 15:17 01/09/23 07:23 Oxygen Flow Rate (L/min) 2 Oxygen Delivery Method Room Air Weight: 54.4 kg Body Mass Index (BMI) 23.4 Intake & Output: Intake and Output for Last 24 Hours 01/07/23 01/08/23 01/09/23 23:59 23:59 23:59 Intake Total 35 / 35 1471 / 1471 1000 / 1000 Output Total 50 / 50 250 / 250 Balance 35 / 35 1421 / 1421 750 / 750 Lab / Micro Data 01/08/23 19:00 01/08/23 05:45 Labs: Laboratory Results - last 24 hr 01/07/23 22:50: Crossmatch See Detail 01/07/23 22:50: Crossmatch See Detail 01/08/23 19:00: WBC 13.0 H, RBC 3.17 L, Hgb 10.4 L, Hct 31.8 L, MCV 100.3 H D, MCH 32.8 H, MCHC 32.7, RDW Std Deviation 76.5 H, RDW Coeff of Cyril 21.1 H, Plt Count 387, MPV 8.6, Immature Gran % (Auto) 1.400 H, Neut % (Auto) 80.2 H, Lymph % (Auto) 9.4 L, [place] % (Auto) 8.3, Eos % (Auto) 0.2, Baso % (Auto) 0.5, Absolute Neuts (auto) 10.4 H, Absolute Lymphs (auto) 1.22, Nucleated RBC % 0, Platelet Estimate ADEQUATE, RBC Morphology N CHROM, Anisocytosis 2+, Macrocytosis 2+, Ovalocytes RARE Micro: Microbiology 01/07/23 22:50 Stool Stool Occult Blood (MAURICIO) - Final Occult Blood Positive Physical Exam Const alert, oriented x3, no apparent distress and average body habitus General Appearance: cooperative, well kempt and well developed Orientation / Consciousness: awake, oriented to person, oriented to place and oriented to time HEENT normocephalic, head/scalp atraumatic and moist oral mucous membranes Eyes PERRL, EOMs intact bilaterally and conjunctivae normal Neck supple, no JVD, thyroid normal and no carotid bruits General: trachea midline Resp normal respiratory effort, no retractions, no use of accessory muscles and clear to auscultation bilaterally Auscultation: Negative for rales, rhonchi or wheezes Cardio regular rate, regular rhythm, S1 normal heart sound, S2 normal heart sound, no murmurs, no rub and no gallops GI normal to inspection, nondistended, normoactive bowel sounds, soft to palpation, non-tender and non-distended Extremity no clubbing, cyanosis or edema Skin no rashes or lesions noted General Skin Exam: no breakdown Neuro oriented x3, CN's II-XII intact bilaterally, moves all extremities, no focal motor deficits and no sensory deficits noted Sensorium / Orientation: awake, alert, oriented to person, oriented to place and oriented to time Speech: speech normal Psych affect normal Assessment & Plan Assessment/Plan (1) Acute GI bleeding: PLAN: Plan 1. Acute blood loss anemia from upper GI bleed secondary to duodenal ulcer-patient is to remain on her present medications per gastroenterology. She remains on a PPI drip. #2 gastric stenosis-this was dilated yesterday #3 chronic obstructive pulmonary disease-patient is to remain on her present medications #4 hyperlipidemia-does not appear the patient is taking any medications for hyperlipidemia #5 acute blood loss anemia from upper GI bleed requiring blood transfusion-patient's hemoglobin appears to be stable at this time, labs will be monitored #6 recent closed sacral fracture-patient will obviously need to stay off nonsteroidal anti-inflammatory agents at this time, she is currently on tramadol #7 osteoarthritis-complicates care, medical course, recovery, and prognosis #8 idiopathic thrombocythemia-patient is on hydroxyurea #9 acute debility-patient is being seen by PT and OT, it is likely she will need a short-term stay in a [facility] facility for rehab services. Total clinical time spent by myself addressing the patient's medical issues, reviewing all of her data, and collaborating with patient's care team: 35 minutes Charges/Coding Visit Charges Inpatient E&M: 32193 Subs Hosp L2
--- NOTE | 2023-01-09 16:09 | CHAPLAIN ---
Type of Pastoral Visit _x__ Initial Visit ___ Follow-up Visit ___ On-call Visit ___ General Patient Visit ___ Spiritual Assessment ___ Family Conference ___ Bereavement ___ Rapid Response ___ Code Blue ___ Other (describe below) Pastoral Care Referral From _x__ Patient ___ Family ___ Nurse ___ Physician ___ Computer Systems Designer ___ Armored Car Guard ___ Other (describe below) Sacrament/Intervention _x__ Active listening ___ Anointing ___ Voodoo ___ Bereavement ___ Communion _x__ Sujata exploration ___ _x__ Life review _x__ Prayer ___ Reconciliation ___ Sacrament of Sick _x__ Supportive presence ___ Wedding ___ Other (describe below) Pastoral Comments this patient was recently seen when her spouse was hospitalized; pt gives her new health issue and status of her in ECF; pt says that she has decisions to make and wonders how to do that; pt is affirmed in that she has good family support and input along with strong sujata in the goodness of God; pt talks about her life and marriage; pt has concern for the direction of the world; pt welcomes presence and prayer for support
--- NOTE | 2023-01-09 18:57 | EX.PCM.PN.GI ---
Subjective Subjective I was alerted that the patient had a bloody stool this evening. She is still been tachycardic all day today. She has been eating. Objective Data Objective Data Vital Signs: Vital Signs Temp Pulse Resp BP Pulse Ox O2 Del Method O2 Flow Rate 97.3 F L 111 H 18 125/59 H 97 Room Air 2 01/09/23 15:17 01/09/23 15:17 01/09/23 15:17 01/09/23 15:17 01/09/23 15:17 01/09/23 15:17 01/09/23 07: Oxygen Flow Rate (L/min) 2 Oxygen Delivery Method Room Air Weight: 119 lb 14.903 oz Body Mass Index (BMI) 23.4 Intake & Output: Intake and Output for Last 24 Hours 01/07/23 01/08/23 01/09/23 23:59 23:59 23:59 Intake Total 35 / 35 1471 / 1471 1240 / 1240 Output Total 50 / 50 350 / 350 Balance 35 / 35 1421 / 1421 890 / 890 Lab / Micro Data 01/08/23 19:00 01/08/23 05:45 Labs: Laboratory Results - last 24 hr 01/07/23 22:50: Crossmatch See Detail 01/07/23 22:50: Crossmatch See Detail 01/08/23 19:00: WBC 13.0 H, RBC 3.17 L, Hgb 10.4 L, Hct 31.8 L, MCV 100.3 H D, MCH 32.8 H, MCHC 32.7, RDW Std Deviation 76.5 H, RDW Coeff of Cyril 21.1 H, Plt Count 387, MPV 8.6, Immature Gran % (Auto) 1.400 H, Neut % (Auto) 80.2 H, Lymph % (Auto) 9.4 L, [place] % (Auto) 8.3, Eos % (Auto) 0.2, Baso % (Auto) 0.5, Absolute Neuts (auto) 10.4 H, Absolute Lymphs (auto) 1.22, Nucleated RBC % 0, Platelet Estimate ADEQUATE, RBC Morphology N CHROM, Anisocytosis 2+, Macrocytosis 2+, Ovalocytes RARE Micro: Microbiology 01/07/23 22:50 Stool Stool Occult Blood (MAURICIO) - Final Occult Blood Positive Physical Exam Const alert, oriented x3, no apparent distress and average body habitus General Appearance: cooperative, well kempt and well developed Orientation / Consciousness: awake, oriented to person, oriented to place and oriented to time HEENT normocephalic, head/scalp atraumatic and moist oral mucous membranes Eyes PERRL, EOMs intact bilaterally and conjunctivae normal Neck supple, no JVD, thyroid normal and no carotid bruits General: trachea midline Resp normal respiratory effort, no retractions, no use of accessory muscles and clear to auscultation bilaterally Auscultation: Negative for rales, rhonchi or wheezes Cardio regular rate, regular rhythm, S1 normal heart sound, S2 normal heart sound, no murmurs, no rub and no gallops GI normal to inspection, nondistended, normoactive bowel sounds, soft to palpation, non-tender and non-distended Extremity no clubbing, cyanosis or edema Skin no rashes or lesions noted General Skin Exam: no breakdown Neuro oriented x3, CN's II-XII intact bilaterally, moves all extremities, no focal motor deficits and no sensory deficits noted Sensorium / Orientation: awake, alert, oriented to person, oriented to place and oriented to time Speech: speech normal Psych affect normal Assessment & Plan Assessment/Plan (1) Acute GI bleeding: PLAN: I will order H&H's every 6. Continue PPI drip as previously ordered. (2) Acute blood loss anemia: PLAN: . Acute blood loss anemia secondary to bleeding gastric ulcer. She has a history of macrocytic anemia from unknown cause. Will restart her octreotide. (3) Thrombocytosis: PLAN: Patient is on hydroxyurea and it does treat her thrombocytosis. I would hold that medicine as it may inhibit her healing Charges/Coding Visit Charges Inpatient E&M: 07572 Subs Hosp L3
[2023-01-09 19:10] LABS: Hematocrit 35.9 % (37-47)
[2023-01-09] MEDS: Menthol/Lanolin/Calamine/Znox 113 GM Tube 1 APPLIC TOPICAL (21:27)
[2023-01-10 06:34] VITALS: BP 121/48; PULSE 77; RESP 17; TEMP 36; O2SAT 96
--- NOTE | 2023-01-10 08:02 | PCM.PN.HOSP ---
Reason for Visit Reason for Visit: Diagnoses Acute posthemorrhagic anemia (01/08/23) Thrombocytosis, unspecified (01/08/23) Gastrointestinal hemorrhage, unspecified (01/08/23) Unspecified fracture of sacrum, initial encounter for closed fracture (01/08/23) Subjective Subjective Patient is an 87-year-old lady who presented with coffee-ground emesis with bloody stools Objective Data Objective Data Vital Signs: Vital Signs Temp Pulse Resp BP Pulse Ox O2 Del Method O2 Flow Rate 96.8 F L 77 17 121/48 H 96 Room Air 2 01/10/23 06:34 01/10/23 06:34 01/10/23 06:34 01/10/23 06:34 01/10/23 06:34 01/10/23 06:34 01/09/23 07:23 Oxygen Flow Rate (L/min) 2 Oxygen Delivery Method Room Air Weight: 54.4 kg Body Mass Index (BMI) 23.4 Intake & Output: Intake and Output for Last 24 Hours 01/08/23 01/09/23 01/10/23 23:59 23:59 23:59 Intake Total 1471 / 1471 1340 / 1340 Output Total 50 / 50 350 / 350 50 / 50 Balance 1421 / 1421 990 / 990 -50 / -50 Lab / Micro Data 01/09/23 19:00 01/08/23 05:45 Labs: Laboratory Results - last 24 hr 01/09/23 19:00: Hgb 12.0, Hct 35.9 L Micro: Microbiology 01/07/23 22:50 Stool Stool Occult Blood (MAURICIO) - Final Occult Blood Positive Physical Exam Narrative GENERAL: cooperative HEENT: Atraumatic; normocephalic EYES; Anicteric, Normal Conjunctiva NECK; supple, normal thyroid, RESPIRATORY: Diminished to auscultation CARDIOVASCULAR: Regular S1 S2, GI: soft, normoactive bowel sounds, : No Renal angle tenderness; EXTREMITIES: No edema, no clubbing, MUSCULOSKELETAL: no muscle wasting NEURO: Awake; no lateralizing signs. SKIN: No Rash PSYCH; Flat affect Assessment & Plan Assessment/Plan (1) Acute GI bleeding: PLAN: Plan Patient is an 87-year-old lady who presented with coffee-ground emesis with bloody stools 1. Acute blood loss anemia ? From upper GI bleed from duodenal ulcer patient underwent upper endoscopy on 01/08/2023 by Friend was found to 1 oozing duodenal ulcer with a visible vessel which was injected. Started on PPI 2. Gastric stenosis ? Status post dilatation on 01/08/2023 3. COPD ? Currently not in exacerbation aerosol treatment as needed 4. Dyslipidemia As per history managed with only diet 5. Idiopathic thrombocytopenia ? Patient is on hydroxyurea discontinued 6. Recent closed sacral fracture ? Requested for PT OT as tolerated as well as pain management consult has been placed to case management to assist with disposition 7. DVT prophylaxis Bilateral SCDs Time spent in the patient's overall evaluation,decision-making process, review of diagnostic data, adjustment of management, discussion with other providers, nursing nursing and ancillary staff involved in patient's care documentation, 35 Minutes Charges/Coding Visit Charges Inpatient E&M: 77043 Subs Hosp L2
[2023-01-10 08:33] VITALS: O2SAT 92
[2023-01-10 09:00] VITALS: BP 135/60; PULSE 83; RESP 18; TEMP 36.3; O2SAT 96
[2023-01-10] MEDS: Menthol/Lanolin/Calamine/Znox 113 GM Tube 1 APPLIC TOPICAL (09:04)
[2023-01-10] MEDS: Hydroxyurea 500 MG Capsule PO (09:05)
[2023-01-10] MEDS: 0.9% Saline Lock 10 ML Syringe IV (09:06)
--- NOTE | 2023-01-10 09:16 | CASEMGMT ---
MING spoke with patient and her daughter. Patient's daughter asked that a referral be sent to [facility]. MING asked Shira d/c estate planning counselor to please send a referral to [facility]. Aliyah ANAYA
--- NOTE | 2023-01-10 10:04 | CASEMGMT ---
Discharge Planning Referral made to [facility] via [facility]. Shira Nieves, Discharge Planning Asst.
[2023-01-10 11:20] LABS: Hematocrit 39.6 % (37-47); Hemoglobin 11.6 g/dL (12.0-15.0)
[2023-01-10 15:00] VITALS: BP 117/54; PULSE 87; RESP 18; TEMP 36.4; O2SAT 98
--- NOTE | 2023-01-10 17:08 | PN.GI_ITS ---
Subjective Subjective Patient underwent upper endoscopy yesterday acute GI bleeding. She did have two-point this overnight she had 2 more today. He has a clinical diet and has maintained on octreotide and PPI drip. Objective Data Objective Data Vital Signs: Vital Signs Temp Pulse Resp BP Pulse Ox O2 Del Method O2 Flow Rate 97.6 F L 87 18 117/54 L 98 Room Air 2 01/10/23 15:00 01/10/23 15:00 01/10/23 15:00 01/10/23 15:00 01/10/23 15:00 01/10/23 15:00 01/10/23 08:33 Oxygen Flow Rate (L/min) 2 Oxygen Delivery Method Room Air Weight: 119 lb 14.903 oz Body Mass Index (BMI) 23.4 Intake & Output: Intake and Output for Last 24 Hours 01/08/23 01/09/23 01/10/23 23:59 23:59 23:59 Intake Total 1471 / 1471 1340 / 1340 580 / 580 Output Total 50 / 50 350 / 350 50 / 50 Balance 1421 / 1421 990 / 990 530 / 530 Lab / Micro Data 01/10/23 11:12 01/08/23 05:45 Labs: Laboratory Results - last 24 hr 01/09/23 19:00: Hgb 12.0, Hct 35.9 L 01/10/23 11:12: Hgb 11.6 L, Hct 39.6 Micro: Microbiology 01/10/23 14:25 Nasal Secretion SARS-CoV-2 Antigen (Rapid) - Final 01/07/23 22:50 Stool Stool Occult Blood (MAURICIO) - Final Occult Blood Positive Physical Exam Narrative GENERAL: cooperative HEENT: Atraumatic; normocephalic EYES; Anicteric, Normal Conjunctiva NECK; supple, normal thyroid, RESPIRATORY: Diminished to auscultation CARDIOVASCULAR: Regular S1 S2, GI: soft, normoactive bowel sounds, : No Renal angle tenderness; EXTREMITIES: No edema, no clubbing, MUSCULOSKELETAL: no muscle wasting NEURO: Awake; no lateralizing signs. SKIN: No Rash PSYCH; Flat affect Assessment & Plan Assessment/Plan (1) Acute GI bleeding: PLAN: I will reorder H&H's every 6. Continue PPI drip as previously ordered. I also ordered sulcrafate and misoprostoln to enhance healing in the duodenum. (2) Acute blood loss anemia: PLAN: . Acute blood loss anemia secondary to bleeding gastric ulcer. She has a history of macrocytic anemia from unknown cause. Will restart her octreotide. (3) Thrombocytosis: PLAN: Patient is on hydroxyurea and it does treat her thrombocytosis. I would hold that medicine as it may inhibit her healing Charges/Coding Visit Charges Inpatient E&M: 99229 [facility] Hosp L3
[2023-01-10] MEDS: miSOPROStol 200 MCG Tablet PO ×2 (18:09→21:27)
[2023-01-10 18:59] LABS: Hematocrit 33.8 % (37-47)
[2023-01-10 19:16] LABS: Anion Gap 8 (5-15); BUN 12 mg/dL (7-18); Chloride 106 mmol/L (98-107); EST Glomerular Filtration Rate 100 mL/min (>60); Est Glom Filt Rate - Afr Amer 121 mL/min (>60); Estimated Creatinine Clearance 28.47 ml/min; Glucose 228 mg/dL (74-106); Potassium 3.2 mmol/L (3.5-5.1); Sodium Level 133 mmol/L (136-145)
[2023-01-10 20:47] VITALS: BP 130/66; PULSE 96; RESP 18; TEMP 37; O2SAT 96
[2023-01-10 23:25] VITALS: BP 117/75; PULSE 96; RESP 16; TEMP 36.7; O2SAT 97
[2023-01-11] VITALS (13 sets, daily range): BP systolic 109–140; BP diastolic 59–73; PULSE 72–116; RESP 16–18; TEMP 36.3–36.9; O2SAT 94–99; BMI 23.4
[2023-01-11 00:31] LABS: Hematocrit 33.2 % (37-47)
[2023-01-11] MEDS: Sucralfate 1 GM Tablet PO ×3 (06:19→18:14)
[2023-01-11 06:28] LABS: Absolute Lymphocyte Count 0.97 X10^3/uL (0.83-4.51); Absolute Neutrophil Count 5.1 X10^3/uL (2.0-7.7); Basophil# 0.03 X10^3/uL; Basophil% 0.4 % (0-1); Differential Indicated SCAN CRITERIA MET; Eosinophils% 1.4 % (0-5); Hematocrit 31.1 % (37-47); Hemoglobin 10.5 g/dL (12.0-15.0); Lymphocyte # 0.97 X10^3/ul (0.83-4.51); Lymphocyte % 13.7 % (19-41); Mean Corp Hgb Conc 33.8 g/dL (32-36); Mean Corpuscular Hgb 32.3 pg (27.0-32.0); Mean Corpuscular Volume 95.7 fL (81-99); Mean Platelet Vol. 8.7 fl (6.2-12.0); Monocyte# 0.86 X10^3/uL; Monocyte% 12.1 % (0-10); NRBC Flagged by Analyzer 0 % (0-5); Neutrophil # 5.09 X10^3/uL (2.7-7.7); Neutrophil % 71.7 % (47-70); POSITIVE MORPHOLOGY YES; Platelet Count 263 K/mm3 (150-450); RBC Distribution Width CV 18.8 % (11.6-14.6); RBC Distribution Width SD 65.8 fl (35.1-43.9); Red Blood Count 3.25 M/mm3 (4.2-5.4); White Blood Count 7.1 K/mm3 (4.4-11.0)
[2023-01-11 06:45] LABS: Anisocytosis 2+
[2023-01-11 06:52] LABS: Anion Gap 6 (5-15); BUN 9 mg/dL (7-18); BUN/Creat Ratio 23.7 RATIO (10-20); Calcium,Total 7.9 mg/dL (8.5-10.1); Chloride 105 mmol/L (98-107); Creatinine, Serum 0.38 mg/dL (0.55-1.02); EST Glomerular Filtration Rate 171 mL/min (>60); Est Glom Filt Rate - Afr Amer 207 mL/min (>60); Estimated Creatinine Clearance 28.47 ml/min; Glucose 142 mg/dL (74-106); Phosphorus 2.2 mg/dL (2.5-4.9); Potassium 3.5 mmol/L (3.5-5.1); Sodium Level 134 mmol/L (136-145)
--- NOTE | 2023-01-11 08:08 | PCM.PN.HOSP ---
Reason for Visit Reason for Visit: Diagnoses Acute posthemorrhagic anemia (01/08/23) Thrombocytosis, unspecified (01/08/23) Gastrointestinal hemorrhage, unspecified (01/08/23) Unspecified fracture of sacrum, initial encounter for closed fracture (01/08/23) Subjective Subjective Patient hemoglobin did drop to 10.5. Seen by GI and the day prior plan is for patient to undergo repeat EGD. Objective Data Objective Data Vital Signs: Vital Signs Temp Pulse Resp BP Pulse Ox O2 Del Method O2 Flow Rate 98.5 F 116 H 18 136/62 H 99 Room Air 1 01/11/23 08:02 01/11/23 08:02 01/11/23 08:02 01/11/23 08:02 01/11/23 08:02 01/11/23 08:02 01/11/23 08:02 Oxygen Flow Rate (L/min) 1 Oxygen Delivery Method Room Air Weight: 54.4 kg Body Mass Index (BMI) 23.4 Intake & Output: Intake and Output for Last 24 Hours 01/09/23 01/10/23 01/11/23 23:59 23:59 23:59 Intake Total 1340 / 1340 931 / 1151 460 / 460 Output Total 350 / 350 50 / 50 Balance 990 / 990 881 / 1101 460 / 460 Lab / Micro Data 01/11/23 05:33 01/11/23 05:33 Labs: Laboratory Results - last 24 hr 01/10/23 11:12: Hgb 11.6 L, Hct 39.6 01/10/23 18:43: Hgb 11.0 L, Hct 33.8 L, Sodium 133 L, Potassium 3.2 L, Chloride 106, Carbon Dioxide 19.0 L, Anion Gap 8, BUN 12, Creatinine 0.60, Estim Creat Clear Calc 28.47, Est GFR (MDRD) Af Amer 121, Est GFR (MDRD) Non-Af 100, BUN/Creatinine Ratio 20.0, Glucose 228 H, Calcium 8.0 L 01/11/23 00:20: Hgb 11.0 L, Hct 33.2 L 01/11/23 05:33: WBC 7.1, RBC 3.25 L, Hgb 10.5 L, Hct 31.1 L, MCV 95.7, MCH 32.3 H, MCHC 33.8, RDW Std Deviation 65.8 H, RDW Coeff of Cyril 18.8 H, Plt Count 263, MPV 8.7, Immature Gran % (Auto) 0.700, Neut % (Auto) 71.7 H, Lymph % (Auto) 13.7 L, [place] % (Auto) 12.1 H, Eos % (Auto) 1.4, Baso % (Auto) 0.4, Absolute Neuts (auto) 5.1, Absolute Lymphs (auto) 0.97, Nucleated RBC % 0, Anisocytosis 2+, Sodium 134 L, Potassium 3.5, Chloride 105, Carbon Dioxide 23.0, Anion Gap 6, BUN 9, Creatinine 0.38 L, Estim Creat Clear Calc 28.47, Est GFR (MDRD) Af Amer 207, Est GFR (MDRD) Non-Af 171, BUN/Creatinine Ratio 23.7 H, Glucose 142 H, Calcium 7.9 L, Phosphorus 2.2 L, Magnesium 2.0 Micro: Microbiology 01/10/23 14:25 Nasal Secretion SARS-CoV-2 Antigen (Rapid) - Final 01/07/23 22:50 Stool Stool Occult Blood (MAURICIO) - Final Occult Blood Positive Physical Exam Narrative GENERAL: cooperative HEENT: Atraumatic; normocephalic EYES; Anicteric, Normal Conjunctiva NECK; supple, normal thyroid, RESPIRATORY: Diminished to auscultation CARDIOVASCULAR: Regular S1 S2, GI: soft, normoactive bowel sounds, : No Renal angle tenderness; EXTREMITIES: No edema, no clubbing, MUSCULOSKELETAL: no muscle wasting NEURO: Awake; no lateralizing signs. SKIN: No Rash PSYCH; Flat affect HEENT normocephalic, head/scalp atraumatic and moist oral mucous membranes Eyes PERRL, EOMs intact bilaterally and conjunctivae normal Neck supple, no JVD, thyroid normal and no carotid bruits General: trachea midline Resp normal respiratory effort, no retractions, no use of accessory muscles and clear to auscultation bilaterally Auscultation: Negative for rales, rhonchi or wheezes Cardio regular rate, regular rhythm, S1 normal heart sound, S2 normal heart sound, no murmurs, no rub and no gallops GI normal to inspection, nondistended, normoactive bowel sounds, soft to palpation, non-tender and non-distended Extremity no clubbing, cyanosis or edema Skin no rashes or lesions noted General Skin Exam: no breakdown Neuro oriented x3, CN's II-XII intact bilaterally, moves all extremities, no focal motor deficits and no sensory deficits noted Sensorium / Orientation: awake, alert, oriented to person, oriented to place and oriented to time Speech: speech normal Psych affect normal Assessment & Plan Assessment/Plan (1) Acute GI bleeding: PLAN: Plan Patient is an 87-year-old lady who presented with coffee-ground emesis with bloody stools 1. Acute blood loss anemia ? From upper GI bleed from duodenal ulcer patient underwent upper endoscopy on 01/08/2023 by Friend was found to 1 oozing duodenal ulcer with a visible vessel which was injected. Started on PPI ? 01/11/2023;Patient hemoglobin did drop to 10.5. Seen by GI and the day prior plan is for patient to undergo repeat EGD. 2. Gastric stenosis ? Status post dilatation on 01/08/2023 3. COPD ? Currently not in exacerbation aerosol treatment as needed 4. Dyslipidemia As per history managed with only diet 5. Idiopathic thrombocytopenia ? Patient is on hydroxyurea discontinued 6. Recent closed sacral fracture ? Requested for PT OT as tolerated as well as pain management consult has been placed to case management to assist with disposition 7. DVT prophylaxis Bilateral SCDs Time spent in the patient's overall evaluation,decision-making process, review of diagnostic data, adjustment of management, discussion with other providers, nursing nursing and ancillary staff involved in patient's care documentation, 35 Minutes Charges/Coding Visit Charges Inpatient E&M: 10221 Subs Hosp L2
[2023-01-11] MEDS: 0.9% Normal Saline 1,000 ML 15 ML IV (10:18)
--- NOTE | 2023-01-11 10:56 | CASEMGMT ---
Patient will not be discharged today. MING notified Alexa at [facility] and sent her some updates. Aliyah Foster GOVERNMENT AFFAIRS FELLOW HÉCTOR
--- NOTE | 2023-01-11 11:45 | OP.EGD_ITS ---
Patient Name: Kellie Be Procedure Date: 01/11/2023 11:05 AM Date of : 1935 Age: 87 Procedure: Upper GI endoscopy Indications: Melena Providers: Nagi Larios DO Referring MD: Odilon Parra Medicines: Monitored Anesthesia Care Patient Profile: This is an 87 year old female. Refer to note in patient chart for documentation of history and physical. Patient has symptoms of acute abdominal cramping. Complications: No immediate complications. Procedure: Pre-Anesthesia Assessment: - Prior to the procedure, a History and Physical was performed, and patient medications and allergies were reviewed. The patient is competent. The risks and benefits of the procedure and the sedation options and risks were discussed with the patient. All questions were answered and informed consent was obtained. Patient identification and proposed procedure were verified by the physician in the pre-procedure area. Mental Status Examination: alert and oriented. Airway Examination: normal oropharyngeal airway and neck mobility. Respiratory Examination: clear to auscultation. CV Examination: normal. Prophylactic Antibiotics: The patient does not require prophylactic antibiotics. Prior Anticoagulants: The patient has taken no previous anticoagulant or antiplatelet agents. ASA Grade Assessment: III - A patient with severe systemic disease. After reviewing the risks and benefits, the patient was deemed in satisfactory condition to undergo the procedure. The anesthesia plan was to use monitored anesthesia care (MAC). Immediately prior to administration of medications, the patient was re-assessed for adequacy to receive sedatives. The heart rate, respiratory rate, oxygen saturations, blood pressure, adequacy of pulmonary ventilation, and response to care were monitored throughout the procedure. The physical status of the patient was re-assessed after the procedure. After obtaining informed consent, the endoscope was passed under direct vision. Throughout the procedure, the patient's blood pressure, pulse, and oxygen saturations were monitored continuously. The gastroscope was introduced through the mouth, and advanced to the second part of duodenum. The upper GI endoscopy was accomplished without difficulty. The patient tolerated the procedure well. Scope In: 11:36:41 AM Scope Out: 11:42:07 AM Total Procedure Duration Time 0 hours 5 minutes 26 seconds Findings: The examined esophagus was normal. A medium-sized hiatal hernia was present. One oozing cratered duodenal ulcer with pigmented material was found in the duodenal bulb. The lesion was 6 mm in largest dimension. Area was successfully injected with 15 mL of a 1:10,000 solution of epinephrine for drug delivery. Estimated blood loss was minimal. One non-obstructing oozing cratered duodenal ulcer with a visible vessel was found in the first portion of the duodenum. The lesion was 9 mm in largest dimension. There is no evidence of perforation. Coagulation for hemostasis using argon plasma at 0.3 liters/minute and 20 olguin was successful. Estimated blood loss was minimal. Impression: - Normal esophagus. - Medium-sized hiatal hernia. - One oozing duodenal ulcer with pigmented material. Injected. - One non-obstructing oozing duodenal ulcer with a visible vessel. NSAID induced etiology. There is no evidence of perforation. Treated with argon plasma coagulation (APC). - No specimens collected. Recommendation: - Return patient to [facility] for [facility] care. - Advance diet as tolerated. - Continue present medications. Procedure Code(s): --- Professional --- 55728, Esophagogastroduodenoscopy, flexible, transoral; with control of bleeding, any method 14303, 59,51, Esophagogastroduodenoscopy, flexible, transoral; with directed submucosal injection(s), any substance CPT copyright 2017 [employer]. All rights reserved. The codes documented in this report are preliminary and upon environmental change analyst review may be revised to meet current compliance requirements. Nagi Larios DO 01/11/2023 11:45:26 AM This report has been signed electronically. Number of Addenda: 0 Note Initiated On: 01/11/2023 11:05 AM
--- NOTE | 2023-01-11 11:45 | OP.CCLET_ITS ---
01/11/2023 Nathan Vanegas [address] [place] [address] Re : Upper GI endoscopy procedure for Kellie Be Dear Dr. Vanegas This procedure was performed on December. My impressions and recommendations are as follows: Impressions : - Normal esophagus. - Medium-sized hiatal hernia. - One oozing duodenal ulcer with pigmented material. Injected. - One non-obstructing oozing duodenal ulcer with a visible vessel. NSAID induced etiology. There is no evidence of perforation. Treated with argon plasma coagulation (APC). - No specimens collected. Recommendations : - Return patient to [facility] for [facility] care. - Advance diet as tolerated. - Continue present medications. My findings are described in the full procedure note, which is enclosed. If I can be of further assistance, please feel free to contact me at . Sincerely, Nagi Larios, 01/11/2023 11:45:26 AM This report has been signed electronically.
[2023-01-11] MEDS: miSOPROStol 200 MCG Tablet PO ×3 (13:11→22:21)
[2023-01-11] MEDS: Hydroxyurea 500 MG Capsule PO (13:19)
--- NOTE | 2023-01-11 13:45 | CASEMGMT ---
Patient has a Healthcare Power of Is Project Manager and a Healthcare Living Will on file at [facility]. Patient's Reinaldo is her healthcare POA, however Reinaldo has Dementia. Patient's daughter Katherin is listed as the first alternate. Patient and family have met with an district attorney regarding documents. Aliyah ANAYA
[2023-01-11] MEDS: Loratadine 10 MG Tablet PO (22:21)
[2023-01-11] MEDS: guaiFENesin 600 MG Tablet PO (22:21)
[2023-01-12] VITALS (7 sets, daily range): BP systolic 114–135; BP diastolic 55–69; PULSE 85–89; RESP 16–18; TEMP 36.7–37.8; O2SAT 95–97
[2023-01-12 05:15] LABS: Absolute Lymphocyte Count 1.37 X10^3/uL (0.83-4.51); Absolute Neutrophil Count 4.8 X10^3/uL (2.0-7.7); Basophil# 0.02 X10^3/uL; Basophil% 0.3 % (0-1); Eosinophils% 1.4 % (0-5); Hematocrit 31.8 % (37-47); Hemoglobin 10.9 g/dL (12.0-15.0); Lymphocyte # 1.37 X10^3/ul (0.83-4.51); Mean Corp Hgb Conc 34.3 g/dL (32-36); Mean Corpuscular Hgb 32.6 pg (27.0-32.0); Mean Corpuscular Volume 95.2 fL (81-99); Mean Platelet Vol. 8.6 fl (6.2-12.0); Monocyte# 0.89 X10^3/uL; Monocyte% 12.3 % (0-10); NRBC Flagged by Analyzer 0 % (0-5); Neutrophil # 4.76 X10^3/uL (2.7-7.7); Neutrophil % 65.9 % (47-70); Platelet Count 311 K/mm3 (150-450); RBC Distribution Width CV 18.2 % (11.6-14.6); RBC Distribution Width SD 61.9 fl (35.1-43.9); Red Blood Count 3.34 M/mm3 (4.2-5.4); White Blood Count 7.2 K/mm3 (4.4-11.0)
[2023-01-12 05:43] LABS: Anion Gap 8 (5-15); BUN 6 mg/dL (7-18); BUN/Creat Ratio 14.1 RATIO (10-20); Calcium,Total 8.1 mg/dL (8.5-10.1); Chloride 103 mmol/L (98-107); Creatinine, Serum 0.43 mg/dL (0.55-1.02); EST Glomerular Filtration Rate 149 mL/min (>60); Est Glom Filt Rate - Afr Amer 180 mL/min (>60); Estimated Creatinine Clearance 28.47 ml/min; Glucose 127 mg/dL (74-106); Potassium 3.3 mmol/L (3.5-5.1); Sodium Level 133 mmol/L (136-145)
[2023-01-12] MEDS: Sucralfate 1 GM Tablet PO ×3 (06:13→15:16)
[2023-01-12] MEDS: 0.9% Saline Lock 10 ML Syringe IV ×2 (06:15→12:18)
--- NOTE | 2023-01-12 07:55 | PCM.PN.HOSP ---
Reason for Visit Reason for Visit: Diagnoses Acute posthemorrhagic anemia (01/08/23) Thrombocytosis, unspecified (01/08/23) Gastrointestinal hemorrhage, unspecified (01/08/23) Unspecified fracture of sacrum, initial encounter for closed fracture (01/08/23) Subjective Subjective Patient underwent repeat EGD given her hemoglobin was continue to trend with some passage of clots per rectum. EGD did show Normal esophagus. Medium-sized hiatal hernia. One oozing duodenal ulcer with pigmented material. Injected. One non-obstructing oozing duodenal ulcer with a visible vessel. NSAID induced etiology. There is no evidence of perforation. Treated with argon plasma coagulation (APC). Objective Data Objective Data Vital Signs: Vital Signs Temp Pulse Resp BP Pulse Ox O2 Del Method O2 Flow Rate 98.1 F 89 18 135/69 H 96 Room Air 1 01/12/23 07:53 01/12/23 07:53 01/12/23 07:53 01/12/23 07:53 01/12/23 07:53 01/12/23 07:53 01/11/23 08:02 Oxygen Flow Rate (L/min) 1 Oxygen Delivery Method Room Air Weight: 54.4 kg Body Mass Index (BMI) 23.4 Intake & Output: Intake and Output for Last 24 Hours 01/10/23 01/11/23 01/12/23 23:59 23:59 23:59 Intake Total 931 / 1151 1264.67 / 1264.67 Output Total 50 / 50 Balance 881 / 1101 1264.67 / 1264.67 Lab / Micro Data 01/12/23 04:57 01/12/23 04:57 Labs: Laboratory Results - last 24 hr 01/12/23 04:57: WBC 7.2, RBC 3.34 L, Hgb 10.9 L, Hct 31.8 L, MCV 95.2, MCH 32.6 H, MCHC 34.3, RDW Std Deviation 61.9 H, RDW Coeff of Cyril 18.2 H, Plt Count 311, MPV 8.6, Immature Gran % (Auto) 1.100 H, Neut % (Auto) 65.9, Lymph % (Auto) 19.0, [place] % (Auto) 12.3 H, Eos % (Auto) 1.4, Baso % (Auto) 0.3, Absolute Neuts (auto) 4.8, Absolute Lymphs (auto) 1.37, Nucleated RBC % 0, Sodium 133 L, Potassium 3.3 L, Chloride 103, Carbon Dioxide 22.0, Anion Gap 8, BUN 6 L, Creatinine 0.43 L, Estim Creat Clear Calc 28.47, Est GFR (MDRD) Af Amer 180, Est GFR (MDRD) Non-Af 149, BUN/Creatinine Ratio 14.1, Glucose 127 H, Calcium 8.1 L Micro: Microbiology 01/10/23 14:25 Nasal Secretion SARS-CoV-2 Antigen (Rapid) - Final 01/07/23 22:50 Stool Stool Occult Blood (MAURICIO) - Final Occult Blood Positive Physical Exam Narrative GENERAL: cooperative HEENT: Atraumatic; normocephalic EYES; Anicteric, Normal Conjunctiva NECK; supple, normal thyroid, RESPIRATORY: Diminished to auscultation CARDIOVASCULAR: Regular S1 S2, GI: soft, normoactive bowel sounds, : No Renal angle tenderness; EXTREMITIES: No edema, no clubbing, MUSCULOSKELETAL: no muscle wasting NEURO: Awake; no lateralizing signs. SKIN: No Rash PSYCH; Flat affect Assessment & Plan Assessment/Plan (1) Acute GI bleeding: PLAN: Plan Patient is an 87-year-old lady who presented with coffee-ground emesis with bloody stools 1. Acute blood loss anemia ? From upper GI bleed from duodenal ulcer patient underwent upper endoscopy on 01/08/2023 by Friend was found to 1 oozing duodenal ulcer with a visible vessel which was injected. Started on PPI ? 01/11/2023;Patient hemoglobin did drop to 10.5. Seen by GI and the day prior plan is for patient to undergo repeat EGD. -01/12/2023;Patient underwent repeat EGD given her hemoglobin was continue to trend with some passage of clots per rectum. EGD did show Normal esophagus. Medium-sized hiatal hernia. One oozing duodenal ulcer with pigmented material. Injected. One non-obstructing oozing duodenal ulcer with a visible vessel. NSAID induced etiology. There is no evidence of perforation. Treated with argon plasma coagulation 2. Gastric stenosis ? Status post dilatation on 01/08/2023 3. COPD ? Currently not in exacerbation aerosol treatment as needed 4. Dyslipidemia As per history managed with only diet 5. Idiopathic thrombocytopenia ? Patient is on hydroxyurea discontinued 6. Recent closed sacral fracture ? Requested for PT OT as tolerated as well as pain management consult has been placed to case management to assist with disposition 7. DVT prophylaxis Bilateral SCDs Time spent in the patient's overall evaluation,decision-making process, review of diagnostic data, adjustment of management, discussion with other providers, nursing nursing and ancillary staff involved in patient's care documentation, 35 Minutes Charges/Coding Visit Charges Inpatient E&M: 16886 Subs Hosp L2
[2023-01-12] MEDS: miSOPROStol 200 MCG Tablet PO ×4 (09:11→21:25)
[2023-01-12] MEDS: Menthol/Lanolin/Calamine/Znox 113 GM Tube 1 APPLIC TOPICAL ×2 (09:11→21:26)
[2023-01-12] MEDS: Hydroxyurea 500 MG Capsule PO (09:11)
[2023-01-12] MEDS: guaiFENesin 600 MG Tablet PO ×2 (09:12→21:24)
--- NOTE | 2023-01-12 09:32 | CASEMGMT ---
Discharge Planning [facility] updated on discharge date via [facility]. Asked if new covid test will be needed. Awaiting response. Shira Nieves, Discharge Planning Asst.
--- NOTE | 2023-01-12 10:09 | CASEMGMT ---
Patient will be ready for discharge to [place] over the weekend. Family will transport patient. SW completed a PASRR in [facility] system. Patient will only need another COVID test if she leaves at 14:30 or later on Sunday or Sunday. Plan: d/c to [place] under skilled level of care on a PASRR. Family will transport patient via private vehicle. Aliyah ANAYA
--- NOTE | 2023-01-12 15:22 | PN.GI_ITS ---
Subjective Subjective Patient is doing well today after undergoing EGD yesterday for recurrent bleeding from duodenal ulcers. She has not seen any bleeding overnight. She denies any chest pain or shortness of breath. She states that she is starting to get hungry. Objective Data Objective Data Vital Signs: Vital Signs Temp Pulse Resp BP Pulse Ox O2 Del Method O2 Flow Rate 98.7 F 85 18 114/69 96 Room Air 1 01/12/23 15:05 01/12/23 15:05 01/12/23 15:05 01/12/23 15:05 01/12/23 15:05 01/12/23 15:05 01/11/23 08:02 Oxygen Flow Rate (L/min) 1 Oxygen Delivery Method Room Air Weight: 119 lb 14.903 oz Body Mass Index (BMI) 23.4 Intake & Output: Intake and Output for Last 24 Hours 01/10/23 01/11/23 01/12/23 23:59 23:59 23:59 Intake Total 931 / 1151 1264.67 / 1264.67 610 / 610 Output Total 50 / 50 Balance 881 / 1101 1264.67 / 1264.67 610 / 610 Lab / Micro Data 01/12/23 04:57 01/12/23 04:57 Labs: Laboratory Results - last 24 hr 01/12/23 04:57: WBC 7.2, RBC 3.34 L, Hgb 10.9 L, Hct 31.8 L, MCV 95.2, MCH 32.6 H, MCHC 34.3, RDW Std Deviation 61.9 H, RDW Coeff of Cyril 18.2 H, Plt Count 311, MPV 8.6, Immature Gran % (Auto) 1.100 H, Neut % (Auto) 65.9, Lymph % (Auto) 19. 0, [place] % (Auto) 12.3 H, Eos % (Auto) 1.4, Baso % (Auto) 0.3, Absolute Neuts (auto) 4.8, Absolute Lymphs (auto) 1.37, Nucleated RBC % 0, Sodium 133 L, Potassium 3.3 L, Chloride 103, Carbon Dioxide 22.0, Anion Gap 8, BUN 6 L, Creatinine 0.43 L, Estim Creat Clear Calc 28.47, Est GFR (MDRD) Af Amer 180, Est GFR (MDRD) Non-Af 149, BUN/Creatinine Ratio 14.1, Glucose 127 H, Calcium 8.1 L Micro: Microbiology 01/10/23 14:25 Nasal Secretion SARS-CoV-2 Antigen (Rapid) - Final 01/07/23 22:50 Stool Stool Occult Blood (MAURICIO) - Final Occult Blood Positive Physical Exam Narrative GENERAL: cooperative HEENT: Atraumatic; normocephalic EYES; Anicteric, Normal Conjunctiva NECK; supple, normal thyroid, RESPIRATORY: Diminished to auscultation CARDIOVASCULAR: Regular S1 S2, GI: soft, normoactive bowel sounds, : No Renal angle tenderness; EXTREMITIES: No edema, no clubbing, MUSCULOSKELETAL: no muscle wasting NEURO: Awake; no lateralizing signs. SKIN: No Rash PSYCH; Flat affect Assessment & Plan Assessment/Plan (1) Acute GI bleeding: PLAN: She can have H&H's daily now. Her PPI can be 40 mg p.o. twice daily. Continue sulcrafate and misoprostol to enhance healing in the duodenum. (2) Acute blood loss anemia: PLAN: . Acute blood loss anemia secondary to bleeding gastric ulcer. She has a history of macrocytic anemia from unknown cause. Octreotide also is off. (3) Thrombocytosis: PLAN: Patient is on hydroxyurea and it does treat her thrombocytosis. I would hold that medicine as it may inhibit her healing Charges/Coding Visit Charges Inpatient E&M: 85920 [facility] Hosp L3
[2023-01-12] MEDS: Loratadine 10 MG Tablet PO (21:25)
--- NOTE | 2023-01-12 22:28 | NURSING ---
Protonix gtt and sandostatin gtt compatible per Migue from pharmacy to be y-sited together.
[2023-01-13] VITALS: BP 133/64; PULSE 86; RESP 15; TEMP 37.4; O2SAT 99
[2023-01-13 00:15] VITALS: TEMP 38.1
--- NOTE | 2023-01-13 00:41 | RAD_ITS ---
INDICATION: Fever EXAMINATION/TECHNIQUE: X-RAY - XR Chest 1 View COMPARISON: 01/07/2023 chest radiograph. Findings: Single frontal view of the chest. LUNG PARENCHYMA: No acute focal airspace disease or mass lesion. PLEURA: No pleural effusion. No pneumothorax. HEART/GREAT VESSELS: Cardiomediastinal silhouette is unremarkable. BONES: Right shoulder arthroplasty. Severe left glenohumeral joint degenerative change. RAD/Chest 1 View (Portable) IMPRESSION: Chest with no acute disease. Electronically Signed: Thomas Mcgrath MD at 2:24 EDT ,
--- NOTE | 2023-01-13 00:42 | PCM.HOSP.N ---
Hospitalist Note Patient with new onset fever. Will obtain CXR as last performed 01/07/23 and UA, add tylenol. CTA A/P with no obvious infection acute findings upon admission.
[2023-01-13 02:43] LABS: Absolute Lymphocyte Count 1.19 X10^3/uL (0.83-4.51); Absolute Neutrophil Count 5.2 X10^3/uL (2.0-7.7); Basophil# 0.03 X10^3/uL; Basophil% 0.4 % (0-1); Eosinophil# 0.09 X10^3/uL; Eosinophils% 1.2 % (0-5); Hematocrit 32.4 % (37-47); Lymphocyte # 1.19 X10^3/ul (0.83-4.51); Lymphocyte % 15.5 % (19-41); Mean Corpuscular Hgb 32.4 pg (27.0-32.0); Mean Corpuscular Volume 95.6 fL (81-99); Mean Platelet Vol. 8.5 fl (6.2-12.0); Monocyte# 0.98 X10^3/uL; Monocyte% 12.8 % (0-10); NRBC Flagged by Analyzer 0 % (0-5); Neutrophil # 5.22 X10^3/uL (2.7-7.7); Platelet Count 344 K/mm3 (150-450); RBC Distribution Width CV 18.2 % (11.6-14.6); RBC Distribution Width SD 62.3 fl (35.1-43.9); Red Blood Count 3.39 M/mm3 (4.2-5.4); White Blood Count 7.7 K/mm3 (4.4-11.0)
[2023-01-13 02:57] LABS: Anion Gap 8 (5-15); BUN 5 mg/dL (7-18); BUN/Creat Ratio 10.7 RATIO (10-20); Calcium,Total 8.1 mg/dL (8.5-10.1); Chloride 103 mmol/L (98-107); Creatinine, Serum 0.47 mg/dL (0.55-1.02); EST Glomerular Filtration Rate 134 mL/min (>60); Est Glom Filt Rate - Afr Amer 162 mL/min (>60); Estimated Creatinine Clearance 28.47 ml/min; Glucose 130 mg/dL (74-106); Potassium 3.3 mmol/L (3.5-5.1); Sodium Level 134 mmol/L (136-145)
[2023-01-13 03:07] LABS: Procalcitonin 0.05 ng/mL (0.00-0.09)
[2023-01-13 04:32] VITALS: BP 133/64; PULSE 86; RESP 15; TEMP 37.4; O2SAT 99
[2023-01-13] MEDS: Acetaminophen 325 MG Tablet 650 MG PO (04:39)
[2023-01-13 04:41] VITALS: BP 133/64; PULSE 86; RESP 15; TEMP 37.4; O2SAT 99
[2023-01-13 05:22] LABS: Mucous, Urine 0 SEEN /hpf (<or=2+)
[2023-01-13 05:24] LABS: Color, Urine Yellow (Yellow); Glucose, Dipstick Normal (Normal); Ketone-Dipstick Negative (Negative); Leukocyte Esterase-Dipstick Negative /ul (Negative); Nitrite-Dipstick Negative (Negative); Occult Blood-Urine Negative /ul (Negative); Protein-Dipstick Negative (Negative); Specific Gravity, Urine 1.005 (1.002-1.030); Urine Bilirubin Dipstick Negative (Negative); Urine Clarity Clear (Clear); Urine Urobilinogen Normal (Normal)
[2023-01-13 05:45] LABS: Squamous Epithelial Cells - UA 0-5 SEEN /hpf (5-10)
[2023-01-13 05:46] LABS: Bacteria 1+ /hpf (None Seen)
[2023-01-13] MEDS: Sucralfate 1 GM Tablet PO ×2 (06:04→11:13)
[2023-01-13 07:24] VITALS: TEMP 36.8; O2SAT 94
--- NOTE | 2023-01-13 07:56 | PCM.PN.HOSP ---
Reason for Visit Reason for Visit: Diagnoses Acute posthemorrhagic anemia (01/08/23) Thrombocytosis, unspecified (01/08/23) Gastrointestinal hemorrhage, unspecified (01/08/23) Unspecified fracture of sacrum, initial encounter for closed fracture (01/08/23) Subjective Subjective Patient seen hemoglobin remained stable plan is for patient to be assessed for possible discharge Objective Data Objective Data Vital Signs: Vital Signs Temp Pulse Resp BP Pulse Ox O2 Del Method O2 Flow Rate 98.3 F 86 15 133/64 H 99 Room Air 1 01/13/23 07:24 01/13/23 04:41 01/13/23 04:41 01/13/23 04:41 01/13/23 04:41 01/13/23 06:14 01/11/23 08:02 Oxygen Flow Rate (L/min) 1 Oxygen Delivery Method Room Air Weight: 54.4 kg Body Mass Index (BMI) 23.4 Intake & Output: Intake and Output for Last 24 Hours 01/11/23 01/12/23 01/13/23 23:59 23:59 23:59 Intake Total 1264.67 / 1264.67 952.17 / 952.17 Output Total 50 / 50 Balance 1264.67 / 1264.67 952.17 / 952.17 -50 / -50 Lab / Micro Data 01/13/23 02:34 01/13/23 02:34 Labs: Laboratory Results - last 24 hr 01/13/23 02:34: WBC 7.7, RBC 3.39 L, Hgb 11.0 L, Hct 32.4 L, MCV 95.6, MCH 32.4 H, MCHC 34.0, RDW Std Deviation 62.3 H, RDW Coeff of Cyril 18.2 H, Plt Count 344, MPV 8.5, Immature Gran % (Auto) 2.100 H, Neut % (Auto) 68.0, Lymph % (Auto) 15.5 L, [place] % (Auto) 12.8 H, Eos % (Auto) 1.2, Baso % (Auto) 0.4, Absolute Neuts (auto) 5.2, Absolute Lymphs (auto) 1.19, Nucleated RBC % 0, Sodium 134 L, Potassium 3.3 L, Chloride 103, Carbon Dioxide 23.0, Anion Gap 8, BUN 5 L, Creatinine 0.47 L, Estim Creat Clear Calc 28.47, Est GFR (MDRD) Af Amer 162, Est GFR (MDRD) Non-Af 134, BUN/Creatinine Ratio 10.7, Glucose 130 H, Calcium 8.1 L, Procalcitonin 0.05 01/13/23 04:30: Urine Color Yellow, Urine Clarity Clear, Urine pH 7.0, Ur Specific [place] 1.005, Urine Protein Negative, Urine Glucose (UA) Normal, Urine Ketones Negative, Urine Occult Blood Negative, Urine Nitrite Negative, Urine Bilirubin Negative, Urine Urobilinogen Normal, Ur Leukocyte Esterase Negative, Urine RBC HEALTH AND HUMAN PERFORMANCE PROFESSOR, Urine WBC HEALTH AND HUMAN PERFORMANCE PROFESSOR, Ur Squamous Epith Cells 0-5 SEEN, Urine Bacteria 1+, Urine Mucus 0 SEEN Micro: Microbiology 01/10/23 14:25 Nasal Secretion SARS-CoV-2 Antigen (Rapid) - Final 01/07/23 22:50 Stool Stool Occult Blood (MAURICIO) - Final Occult Blood Positive Radiography Diagnostic Testing: Radiology Impression Chest X-Ray 01/13/23 00:41 IMPRESSION: Chest with no acute disease. Electronically Signed: Thomas Mcgrath MD at 2:24 EDT Reading Location ID and State: [facility] / [place] Tel , Service support , Physical Exam Narrative GENERAL: cooperative HEENT: Atraumatic; normocephalic EYES; Anicteric, Normal Conjunctiva NECK; supple, normal thyroid, RESPIRATORY: Diminished to auscultation CARDIOVASCULAR: Regular S1 S2, GI: soft, normoactive bowel sounds, : No Renal angle tenderness; EXTREMITIES: No edema, no clubbing, MUSCULOSKELETAL: no muscle wasting NEURO: Awake; no lateralizing signs. SKIN: No Rash PSYCH; Flat affect Assessment & Plan Assessment/Plan (1) Acute GI bleeding: PLAN: Plan Patient is an 87-year-old lady who presented with coffee-ground emesis with bloody stools 1. Acute blood loss anemia ? From upper GI bleed from duodenal ulcer patient underwent upper endoscopy on 01/08/2023 by Friend was found to 1 oozing duodenal ulcer with a visible vessel which was injected. Started on PPI ? 01/11/2023;Patient hemoglobin did drop to 10.5. Seen by GI and the day prior plan is for patient to undergo repeat EGD. -01/12/2023;Patient underwent repeat EGD given her hemoglobin was continue to trend with some passage of clots per rectum. EGD did show Normal esophagus. Medium-sized hiatal hernia. One oozing duodenal ulcer with pigmented material. Injected. One non-obstructing oozing duodenal ulcer with a visible vessel. NSAID induced etiology. There is no evidence of perforation. Treated with argon plasma coagulation 2. Gastric stenosis ? Status post dilatation on 01/08/2023 3. COPD ? Currently not in exacerbation aerosol treatment as needed 4. Dyslipidemia As per history managed with only diet 5. Idiopathic thrombocytopenia ? Patient is on hydroxyurea discontinued 6. Recent closed sacral fracture ? Requested for PT OT as tolerated as well as pain management consult has been placed to case management to assist with disposition 7. DVT prophylaxis Bilateral SCDs Time spent in the patient's overall evaluation,decision-making process, review of diagnostic data, adjustment of management, discussion with other providers, nursing nursing and ancillary staff involved in patient's care documentation, 35 Minutes Charges/Coding Visit Charges Inpatient E&M: 61496 Subs Hosp L2
[2023-01-13 09:04] VITALS: BP 121/55; PULSE 75; RESP 16; TEMP 36.6; O2SAT 97
[2023-01-13] MEDS: guaiFENesin 600 MG Tablet PO (09:11)
[2023-01-13] MEDS: Hydroxyurea 500 MG Capsule PO (09:11)
[2023-01-13] MEDS: miSOPROStol 200 MCG Tablet PO (09:11)
--- NOTE | 2023-01-13 09:28 | TREXTCAR_ITS ---
Diet Diet Order/Speech Therapy: 01/13/23 09:08 Diet: Regular - General Type of Dietary Supplement:: Ensure Clear Is pt able to select menu?: Yes Diet Comments: 120mL ensure clear TID w/ meals Routine Orders/Code Status Code Status: DNRCC-A Problem/Diagnosis (1) Acute GI bleeding: Status: Acute Code(s): K92.2 - Gastrointestinal hemorrhage, unspecified (2) Right hip pain: Status: Acute Code(s): M25.551 - Pain in right hip Plan Patient is an 87-year-old lady who presented with coffee-ground emesis with bloody stools 1. Acute blood loss anemia ? From upper GI bleed from duodenal ulcer patient underwent upper endoscopy on 01/08/2023 by . Friend was found to 1 oozing duodenal ulcer with a visible vessel which was injected. Started on PPI ? 01/11/2023;Patient hemoglobin did drop to 10.5. Seen by GI and the day prior plan is for patient to undergo repeat EGD. -01/12/2023;Patient underwent repeat EGD given her hemoglobin was continue to trend with some passage of clots per rectum. EGD did show Normal esophagus. Medium-sized hiatal hernia. One oozing duodenal ulcer with pigmented material. Injected. One non-obstructing oozing duodenal ulcer with a visible vessel. NSAID induced etiology. There is no evidence of perforation. Treated with argon plasma coagulation 2. Gastric stenosis ? Status post dilatation on 01/08/2023 3. COPD ? Currently not in exacerbation aerosol treatment as needed 4. Dyslipidemia As per history managed with only diet 5. Idiopathic thrombocytopenia ? Patient is on hydroxyurea discontinued 6. Recent closed sacral fracture ? Requested for PT OT as tolerated as well as pain management consult has been placed to case management to assist with disposition 7. DVT prophylaxis Bilateral SCDs Time spent in the patient's overall evaluation,decision-making process, review of diagnostic data, adjustment of management, discussion with other providers, nursing nursing and ancillary staff involved in patient's care documentation, 35 Minutes Allergies/Procedures Done in Hospital Allergies amoxicillin Adverse Reaction (Verified 12/08/22 12:45) Upset Stomach atorvastatin [From Lipitor] Adverse Reaction (Verified 12/08/22 12:45) myalgias ciprofloxacin [From Cipro] Adverse Reaction (Verified 12/08/22 12:45) Itching clarithromycin [From Biaxin] Adverse Reaction (Verified 12/08/22 12:45) Vomiting thiopental [From Pentothal] Adverse Reaction (Verified 12/08/22 12:45) Nausea Type of Care/Length of Stay Estimated LOS: Convalescent Care Less Than 30 days Type of Care Needed: Skilled Rehab Potential: Good Prognosis: Good Additional Orders/Day of Discharge Day of Discharge: 01/13/23 Dietary and Speech Recommendations Dietitian Recommendations/Changes: Recommend advance PO as tolerated to Transitional diet with goal of Regular diet. Offer ensure clear---will add 120mL/ ensure clear TID w/ meals as tolerated. Discharge Plan Admission Admit Date/Time: 01/08/23 01:07 Attending Provider: Xiang Zelaya Primary Care Provider: Nathan Vanegas Consulting Providers: Odilon Parra; Nagi Larios; Nathan Crandall Discharge Orders/Prescriptions Prescriptions: New sucralfate 1 gram Tablet 1 g PO 0700,1100,1600 Qty: 0 0RF misoprostol 200 mcg Tablet 200 mcg PO 4X/DAY Qty: 0 0RF pantoprazole [Protonix] 40 mg tablet,delayed release (DR/EC) 40 mg PO BID 56 Days Qty: 112 0RF hydrocodone-acetaminophen 5-325 mg tablet 1 tab PO BID PRN (Reason: pain) 3 Days Qty: 6 0RF Continued calcium phosphate-vitamin D3 [Citracal-D3 Gummies] 250 mg calcium- 500 unit tablet,chewable 1 tab PO DAILY fluticasone propionate [Flonase Allergy Relief] 50 mcg/actuation spra y,suspension 1 spray INTRANASAL DAILY PRN (Reason: Allergies) magnesium oxide 500 mg capsule 250 mg PO BID guaifenesin [Mucinex] 600 mg tablet extended release 12hr 600 mg PO Q12H PRN (Reason: Cough) zoledronic pvpl-exmasdbf-phjkh [Reclast] 5 mg/100 mL piggyback 1 dose .Route .Q2YEAR Patient Comments: .Qyear Rx Instructions: .Qyear docusate sodium [Stool Softener] 100 mg capsule 100 mg PO DAILY albuterol sulfate [Ventolin HFA] 90 mcg/actuation HFA aerosol inhaler 1 puff INHALATION Q6H PRN (Reason: Sob &/Or Wheezing) cholecalciferol (vitamin D3) 1,000 unit capsule 1,000 unit PO DAILY coenzyme Q10 [Co Q-10] 100 mg capsule 200 mg PO BID hydroxyurea 500 mg capsule 500 mg PO DAILY metoprolol tartrate 25 mg tablet 12.5 mg PO DAILY PRN (Reason: heart flutter) Hold Instructions: Ordered simethicone [Gas-X Ultra-Strength] 180 mg capsule 180 mg PO BID PRN (Reason: Gastric Reflux) cetirizine [Zyrtec] 10 mg Tablet 10 mg PO DAILY acetaminophen 500 mg Tablet 1,000 mg PO Q8 6 Days Qty: 36 0RF Centrum Women 18-400 mg-mcg tablet 1 tab PO DAILY Faoi-Wlzd-Eeko(vit A,C-biotin) 2,500 unit-100 mg-2,500 mcg capsule PO BID Hold Instructions: Ordered meclizine [Antivert] 25 mg tablet,chewable 25 mg PO DAILY PRN PRN (Reason: dizziness) Discontinued ibuprofen 200 mg Tablet 400 mg PO Q6H PRN (Reason: Pain) hydrocodone-acetaminophen 5-325 mg Tablet 1 tab PO Q12H PRN PRN (Reason: PAIN 6-10) Referrals / Follow Up: Nathan Vanegas DO [Primary Care Provider] - Within 1 Week Disposition Disposition (needs filled in before D/C Order can be placed): [facility]
--- NOTE | 2023-01-13 09:46 | DS.PCM_ITS ---
Providers Date of Admission: 01/08/23 Date of Discharge: 01/13/23 Primary Care Physician: Dr. Nathan Vanegas, DO Consultations 01/08/23 02:02 Consult: Gastroenterology Routine Consulting Provider: Nagi Larios Reason for Consult: abla EMERGENT Consult: No MD Notified: Yes Date Notified: 01/08/23 Time Notified: 06:53 Method of Notification: Text Reason For Visit: ABLA Diagnosis Discharge Diagnosis (1) Acute GI bleeding: Status: Acute Code(s): K92.2 - Gastrointestinal hemorrhage, unspecified (2) Right hip pain: Status: Acute Code(s): M25.551 - Pain in right hip Plan Patient is an 87-year-old lady who presented with coffee-ground emesis with bloody stools 1. Acute blood loss anemia ? From upper GI bleed from duodenal ulcer patient underwent upper endoscopy on 01/08/[address] Larios was found to 1 oozing duodenal ulcer with a visible vessel which was injected. Started on PPI ? 01/11/2023;Patient hemoglobin did drop to 10.5. Seen by GI and the day prior p letty is for patient to undergo repeat EGD. -01/12/2023;Patient underwent repeat EGD given her hemoglobin was continue to trend with some passage of clots per rectum. EGD did show Normal esophagus. Medium-sized hiatal hernia. One oozing duodenal ulcer with pigmented material. Injected. One non-obstructing oozing duodenal ulcer with a visible vessel. NSAID induced etiology. There is no evidence of perforation. Treated with argon plasma coagulation 2. Gastric stenosis ? Status post dilatation on 01/08/2023 3. COPD ? Currently not in exacerbation aerosol treatment as needed 4. Dyslipidemia As per history managed with only diet 5. Idiopathic thrombocytopenia ? Patient is on hydroxyurea discontinued 6. Recent closed sacral fracture ? Requested for PT OT as tolerated as well as pain management consult has been placed to case management to assist with disposition 7. DVT prophylaxis Bilateral SCDs Time spent in the patient's overall evaluation,decision-making process, review of diagnostic data, adjustment of management, discussion with other providers, nursing nursing and ancillary staff involved in patient's care documentation, 35 Minutes Medications at Discharge Home Medications albuterol sulfate 90 mcg/actuation aerosol inhaler (Ventolin HFA) 1 puff inhalation Q6H PRN Sob &/Or Wheezing 08/28/18 calcium phosphate 250 mg-vit D3 12.5 mcg (500 unit) chewable tablet (Citracal-D3 Gummies) 1 tab PO DAILY 02/26/18 cholecalciferol (vitamin D3) 25 mcg (1,000 unit) capsule 1,000 unit PO DAILY 02/26/18 docusate sodium 100 mg capsule (Stool Softener) 100 mg PO DAILY 02/26/18 fluticasone propionate 50 mcg/actuation nasal spray,suspension (Flonase Allergy Relief) 1 spray intranasal DAILY PRN Allergies 02/26/18 guaifenesin 600 mg tablet, extended release 12 hr (Mucinex) 600 mg PO Q12H PRN Cough 02/26/18 magnesium oxide 500 mg capsule 250 mg PO BID 02/26/18 zoledronic acid 5 mg/100 mL in mannitol 5 %-water intravenous piggybck (Reclast) 1 dose .Route .Q2YEAR 02/26/18 coenzyme Q10 100 mg capsule (Co Q-10) 200 mg PO BID 02/27/18 metoprolol tartrate 25 mg tablet 12.5 mg PO DAILY PRN heart flutter 02/20/19 simethicone 180 mg capsule (Gas-X Ultra-Strength) 180 mg PO BID PRN Gastric Reflux 02/26/20 hydroxyurea 500 mg capsule 500 mg PO DAILY 09/14/22 cetirizine 10 mg tablet (Zyrtec) 10 mg PO DAILY ALLERGIES 12/08/22 acetaminophen 500 mg tablet 1,000 mg (2 x 500 mg) PO Q8 6 days #36 tabs 12/09/22 meclizine 25 mg chewable tablet (Antivert) 25 mg PO DAILY PRN PRN dizziness 01/07/23 multivitamin-ferrous fumarate-folic acid 18 mg-400 mcg tablet (Centrum Women) 1 tab PO DAILY 01/07/23 vitamin A 2,500 unit-vit C 100 mg-biotin 2,500 [id number]-qavpnl capsule (Xjrx-Fniw-Hvzs (vit A,Y-usjyuj-Ja-Cu)) cap PO BID 01/07/23 hydrocodone-acetaminophen 5-325mg 5mg-325mg 1 tab PO BID PRN pain 3 days #6 tabs 01/13/23 misoprostol 200 mcg tablet 200 mcg PO 4X/DAY #0 tabs 01/13/23 pantoprazole 40 mg tablet,delayed release (Protonix) 40 mg PO BID 8 weeks #112 tabs 01/13/23 sucralfate 1 gram tablet 1 g PO 0700,1100,1600 #0 tabs 01/13/23 Hospital Course Summary of Care Provided Minutes Spent on Discharge: 35 Physical Exam Narrative GENERAL: cooperative HEENT: Atraumatic; normocephalic EYES; Anicteric, Normal Conjunctiva NECK; supple, normal thyroid, RESPIRATORY: Diminished to auscultation CARDIOVASCULAR: Regular S1 S2, GI: soft, normoactive bowel sounds, : No Renal angle tenderness; EXTREMITIES: No edema, no clubbing, MUSCULOSKELETAL: no muscle wasting NEURO: Awake; no lateralizing signs. SKIN: No Rash PSYCH; Flat affect Weight / BMI Weight Weight: 54.4 kg Body Mass Index (BMI) 23.4 ABG / Lab / Microbiology Data 01/13/23 02:34 01/13/23 02:34 Laboratory: Laboratory Results - last 24 hr 01/13/23 02:34: WBC 7.7, RBC 3.39 L, Hgb 11.0 L, Hct 32.4 L, MCV 95.6, MCH 32.4 H, MCHC 34.0, RDW Std Deviation 62.3 H, RDW Coeff of Cyril 18.2 H, Plt Count 344, MPV 8.5, Immature Gran % (Auto) 2.100 H, Neut % (Auto) 68.0, Lymph % (Auto) 15.5 L, [place] % (Auto) 12.8 H, Eos % (Auto) 1.2, Baso % (Auto) 0.4, Absolute Neuts (auto) 5.2, Absolute Lymphs (auto) 1.19, Nucleated RBC % 0, Sodium 134 L, Potassium 3.3 L, Chloride 103, Carbon Dioxide 23.0, Anion Gap 8, BUN 5 L, Creatinine 0.47 L, Estim Creat Clear Calc 28.47, Est GFR (MDRD) Af Amer 162, Est GFR (MDRD) Non-Af 134, BUN/Creatinine Ratio 10.7, Glucose 130 H, Calcium 8.1 L, Procalcitonin 0.05 01/13/23 04:30: Urine Color Yellow, Urine Clarity Clear, Urine pH 7.0, Ur Specific [place] 1.005, Urine Protein Negative, Urine Glucose (UA) Normal, Urine Ketones Negative, Urine Occult Blood Negative, Urine Nitrite Negative, Urine Bilirubin Negative, Urine Urobilinogen Normal, Ur Leukocyte Esterase Negative, Urine RBC [employer], Urine WBC [employer], Ur Squamous Epith Cells 0-5 SEEN, Urine Bacteria 1+, Urine Mucus 0 SEEN Microbiology: Microbiology 01/10/23 14:25 Nasal Secretion SARS-CoV-2 Antigen (Rapid) - Final 01/07/23 22:50 Stool Stool Occult Blood (MAURICIO) - Final Occult Blood Positive Radiography Diagnostic Testing: Radiology Impression Chest X-Ray 01/13/23 00:41 IMPRESSION: Chest with no acute disease. Electronically Signed: Thomas Mcgrath MD at 2:24 EDT , D/C Instructions Discharge Diet: No restrictions Discharge Activity: Return to Normal Activity Call your doctor if you observe: Fever of 101 or Higher, Shortness of breath, Fainting spells and Chest pain Meaningful Use Info Meaningful Use Diagnoses (Choose all that apply): None applicable Discharge Plan Admission Admit Date/Time: 01/08/23 01:07 Attending Provider: Xiang Zelaya Primary Care Provider: Nathan Vanegas Consulting Providers: Odilon Parra; Nagi Larios; Nathan Crandall Discharge Orders/Prescriptions Prescriptions: New sucralfate 1 gram Tablet 1 g PO 0700,1100,1600 Qty: 0 0RF misoprostol 200 mcg Tablet 200 mcg PO 4X/DAY Qty: 0 0RF pantoprazole [Protonix] 40 mg tablet,delayed release (DR/EC) 40 mg PO BID 56 Days Qty: 112 0RF hydrocodone-acetaminophen 5-325 mg tablet 1 tab PO BID PRN (Reason: pain) 3 Days Qty: 6 0RF Continued calcium phosphate-vitamin D3 [Citracal-D3 Gummies] 250 mg calcium- 500 unit tablet,chewable 1 tab PO DAILY fluticasone propionate [Flonase Allergy Relief] 50 mcg/actuation spray,suspension 1 spray INTRANASAL DAILY PRN (Reason: Allergies) magnesium oxide 500 mg capsule 250 mg PO BID guaifenesin [Mucinex] 600 mg tablet extended release 12hr 600 mg PO Q12H PRN (Reason: Cough) zoledronic ljif-wuwsjdmc-jskja [Reclast] 5 mg/100 mL piggyback 1 dose .Route .Q2YEAR Patient Comments: .Qyear Rx Instructions: .Qyear docusate sodium [Stool Softener] 100 mg capsule 100 mg PO DAILY albuterol sulfate [Ventolin HFA] 90 mcg/actuation HFA aerosol inhaler 1 puff INHALATION Q6H PRN (Reason: Sob &/Or Wheezing) cholecalciferol (vitamin D3) 1,000 unit capsule 1,000 unit PO DAILY coenzyme Q10 [Co Q-10] 100 mg capsule 200 mg PO BID hydroxyurea 500 mg capsule 500 mg PO DAILY metoprolol tartrate 25 mg tablet 12.5 mg PO DAILY PRN (Reason: heart flutter) Hold Instructions: Ordered simethicone [Gas-X Ultra-Strength] 180 mg capsule 180 mg PO BID PRN (Reason: Gastric Reflux) cetirizine [Zyrtec] 10 mg Tablet 10 mg PO DAILY acetaminophen 500 mg Tablet 1,000 mg PO Q8 6 Days Qty: 36 0RF Centrum Women 18-400 mg-mcg tablet 1 tab PO DAILY Mmbk-Drbr-Fcmh(vit A,C-biotin) 2,500 unit-100 mg-2,500 mcg capsule PO BID Hold Instructions: Ordered meclizine [Antivert] 25 mg tablet,chewable 25 mg PO DAILY PRN PRN (Reason: dizziness) Discontinued ibuprofen 200 mg Tablet 400 mg PO Q6H PRN (Reason: Pain) hydrocodone-acetaminophen 5-325 mg Tablet 1 tab PO Q12H PRN PRN (Reason: PAIN 6-10) Referrals / Follow Up: Nathan Vanegas DO [Primary Care Provider] - Within 1 Week Disposition Disposition (needs filled in before D/C Order can be placed): [facility] Charges/Coding Visit Charges Inpatient E&M: 35901 Disch Hosp >30min
--- NOTE | 2023-01-13 13:17 | NURSING ---
report called to cholo from [facility]
== END 2023-01-13 13:24 | disposition skilled nursing facility (03) | DRG 378 ==
LOC: ED 01-08 01:18 → PCU 01-08 01:53
PROVIDERS: Family Medicine; Internal Medicine Gastroenterology; Admitting Provider Hospitalist; Emergency Provider Emergency Medicine; PCP Family Medicine; Referring Provider Hospitalist; Visit Provider Internal Medicine
PROC: 0DJ08ZZ Inspection of Upper Intestinal Tract, Via Natural or Artificial Opening Endoscopic (ICD-10-PCS; CPT 43235; principal; 2023-01-08 16:55)
DX: K26.4 Chronic or unspecified duodenal ulcer with hemorrhage (principal); D62 Acute posthemorrhagic anemia; K31.1 Adult hypertrophic pyloric stenosis; D69.3 Immune thrombocytopenic purpura; J44.9 Chronic obstructive pulmonary disease, unspecified; E78.5 Hyperlipidemia, unspecified; I10 Essential (primary) hypertension; K44.9 Diaphragmatic hernia without obstruction or gangrene; M19.90 Unspecified osteoarthritis, unspecified site; W19.XXXD Unspecified fall, subsequent encounter; S32.10XD Unspecified fracture of sacrum, subsequent encounter for fracture with routine healing; R53.81 Other malaise; R50.9 Fever, unspecified; Z66 Do not resuscitate; Z90.49 Acquired absence of other specified parts of digestive tract; Z79.83 Long term (current) use of bisphosphonates; Z79.899 Other long term (current) drug therapy
CPT/HCPCS: 36415; 70450; 71045; 74174; 80048; 80076; 81001; 82274; 83735; 84100; 84145; 85014; 85018; 85025; 85610; 85730; 86644; 86850; 86900; 86901; 86920; 86922; 87086; 87426; 93005; 97110; 97112; 97116; 97162; 97166; 97530; 97535; 99285; J7030; J7050; P9016; Q9967; A4216; J2405; J2916; J3490

== ENCOUNTER → 2023-02-14 | Outpatient (CLI) | payer MEDICARE, OTHER, SELFPAY ==
[2023-02-14 12:23] LABS: Absolute Lymphocyte Count 0.71 X10^3/uL (0.83-4.51); Absolute Neutrophil Count 4.1 X10^3/uL (2.0-7.7); Basophil# 0.03 X10^3/uL; Basophil% 0.5 % (0-1); Eosinophil# 0.06 X10^3/uL; Eosinophils% 1.1 % (0-5); Hematocrit 39.7 % (37-47); Hemoglobin 12.6 g/dL (12.0-15.0); Lymphocyte # 0.71 X10^3/ul (0.83-4.51); Lymphocyte % 12.8 % (19-41); Mean Corp Hgb Conc 31.7 g/dL (32-36); Mean Corpuscular Hgb 33.5 pg (27.0-32.0); Mean Corpuscular Volume 105.6 fL (81-99); Mean Platelet Vol. 9.4 fl (6.2-12.0); Monocyte# 0.64 X10^3/uL; Monocyte% 11.5 % (0-10); NRBC Flagged by Analyzer 0 % (0-5); Neutrophil # 4.09 X10^3/uL (2.7-7.7); Neutrophil % 73.7 % (47-70); POSITIVE MORPHOLOGY YES; Platelet Count 450 K/mm3 (150-450); RBC Distribution Width CV 17.6 % (11.6-14.6); RBC Distribution Width SD 68.1 fl (35.1-43.9); Red Blood Count 3.76 M/mm3 (4.2-5.4); White Blood Count 5.6 K/mm3 (4.4-11.0)
[2023-02-14 12:26] LABS: Differential Indicated SCAN CRITERIA MET
[2023-02-14 12:51] LABS: Anisocytosis 1+
[2023-02-14 13:05] LABS: PTHIN 43.2 pg/mL (18.4-80.1)
[2023-02-14 13:09] LABS: Vitamin D,25 Hydroxy 78.5 ng/mL
[2023-02-14 13:11] LABS: ALB/GLOB Ratio 1.1 RATIO (0.9-2.4); AST(SGOT) 19 U/L (15-37); Alanine Aminotransfer ALT/SGPT 23 U/L (13-56); Albumin, Serum 3.2 g/dL (3.2-5.0); Alkaline Phosphatase 151 U/L (45-117); Anion Gap 6 (5-15); BUN 12 mg/dL (7-18); BUN/Creat Ratio 26.8 RATIO (10-20); Calcium,Total 9.1 mg/dL (8.5-10.1); Chloride 104 mmol/L (98-107); Creatinine, Serum 0.45 mg/dL (0.55-1.02); EST Glomerular Filtration Rate 141 mL/min (>60); Est Glom Filt Rate - Afr Amer 170 mL/min (>60); Ferritin 168 ng/mL (8-252); Glucose 86 mg/dL (74-106); Iron 62 ug/dL (50-170); Magnesium 2.3 mg/dL (1.6-2.6); Potassium 3.9 mmol/L (3.5-5.1); Protein, Total 6.2 g/dL (6.4-8.2); Sodium Level 136 mmol/L (136-145)
== END | disposition home or self-care (01) ==
LOC: BFHLAB 10:35
PROVIDERS: PCP Family Medicine; Referring Provider Family Medicine; Visit Provider Family Medicine
DX: M81.0 Age-related osteoporosis without current pathological fracture (principal); E21.1 Secondary hyperparathyroidism, not elsewhere classified; D47.3 Essential (hemorrhagic) thrombocythemia; E04.1 Nontoxic single thyroid nodule; E55.9 Vitamin D deficiency, unspecified; D50.9 Iron deficiency anemia, unspecified
CPT/HCPCS: 36415; 80053; 82306; 82728; 83540; 83735; 83970; 84443; 85025

== ENCOUNTER 2023-03-27 10:15 | Outpatient (CLI) | payer MEDICARE, OTHER, SELFPAY ==
[2023-03-27 10:47] VITALS: BP 132/62; PULSE 82; RESP 16; TEMP 36.6; O2SAT 98; BMI 21.9
[2023-03-27] MEDS: Zoledronic Acid 5 MG 100 ML 300 MG IV (10:53)
[2023-03-27] MEDS: 0.9% NaCl Peripheral Flush Adult/Peds IV (10:53)
[2023-03-27 11:18] VITALS: BP 122/62; PULSE 85; RESP 16; TEMP 36.9; O2SAT 97
== END 2023-03-27 10:16 | disposition home or self-care (01) ==
PROVIDERS: PCP Family Medicine; Referring Provider Family Medicine; Visit Provider Family Medicine
DX: M81.0 Age-related osteoporosis without current pathological fracture (principal)
CPT/HCPCS: 96365; A4216; J3489

== ENCOUNTER → 2023-05-10 | Outpatient (CLI) | payer MEDICARE, OTHER, SELFPAY ==
[2023-05-10 17:35] LABS: Absolute Lymphocyte Count 0.73 X10^3/uL (0.83-4.51); Absolute Neutrophil Count 3.6 X10^3/uL (2.0-7.7); Basophil# 0.02 X10^3/uL; Basophil% 0.4 % (0-1); Eosinophil# 0.11 X10^3/uL; Eosinophils% 2.2 % (0-5); Hematocrit 40.2 % (37-47); Hemoglobin 12.7 g/dL (12.0-15.0); Lymphocyte # 0.73 X10^3/ul (0.83-4.51); Lymphocyte % 14.5 % (19-41); Mean Corp Hgb Conc 31.6 g/dL (32-36); Mean Corpuscular Hgb 33.5 pg (27.0-32.0); Mean Corpuscular Volume 106.1 fL (81-99); Mean Platelet Vol. 9.3 fl (6.2-12.0); Monocyte# 0.57 X10^3/uL; Monocyte% 11.3 % (0-10); NRBC Flagged by Analyzer 0 % (0-5); Neutrophil # 3.59 X10^3/uL (2.7-7.7); Neutrophil % 71.2 % (47-70); Platelet Count 472 K/mm3 (150-450); RBC Distribution Width CV 14.6 % (11.6-14.6); RBC Distribution Width SD 56.5 fl (35.1-43.9); Red Blood Count 3.79 M/mm3 (4.2-5.4)
== END | disposition home or self-care (01) ==
LOC: BFHLAB 14:41
PROVIDERS: PCP Family Medicine; Visit Provider Family Medicine
DX: D47.3 Essential (hemorrhagic) thrombocythemia (principal)
CPT/HCPCS: 36415; 85025

== ENCOUNTER → 2023-06-08 | Outpatient (CLI) | payer MEDICARE, OTHER, SELFPAY ==
[2023-06-08 15:50] LABS: Absolute Lymphocyte Count 0.88 X10^3/uL (0.83-4.51); Basophil# 0.04 X10^3/uL; Basophil% 0.9 % (0-1); Eosinophils% 2.1 % (0-5); Hematocrit 38.2 % (37-47); Hemoglobin 12.2 g/dL (12.0-15.0); Lymphocyte # 0.88 X10^3/ul (0.83-4.51); Lymphocyte % 18.8 % (19-41); Mean Corp Hgb Conc 31.9 g/dL (32-36); Mean Corpuscular Volume 106.4 fL (81-99); Mean Platelet Vol. 8.4 fl (6.2-12.0); Monocyte# 0.63 X10^3/uL; Monocyte% 13.5 % (0-10); NRBC Flagged by Analyzer 0 % (0-5); Neutrophil % 64.3 % (47-70); Platelet Count 484 K/mm3 (150-450); RBC Distribution Width CV 15.1 % (11.6-14.6); RBC Distribution Width SD 58.2 fl (35.1-43.9); Red Blood Count 3.59 M/mm3 (4.2-5.4); White Blood Count 4.7 K/mm3 (4.4-11.0)
== END | disposition home or self-care (01) ==
PROVIDERS: PCP Family Medicine; Visit Provider Family Medicine
DX: D47.3 Essential (hemorrhagic) thrombocythemia (principal)
CPT/HCPCS: 36415; 85025

== ENCOUNTER → 2023-07-27 | Outpatient (CLI) | payer MEDICARE, OTHER, SELFPAY ==
--- OUTSIDE RECORDS SUMMARY | 2023-07-27 11:54 | XMS RPT_ITS | CCD ---
Author Name Unknown Address [address] [place] [address] Organization [facility] Care Team Providers Care Maintenance Journeyman Name Role Phone Abebe Ibarra Attending Unavailable Abebe Ibarra Attending Unavailable Penny Cowan Unavailable Leslie Mota Unavailable Unavailable Guilherme DO, Cody A Primary Care Provider Guilherme DO, Cody A Primary Care Provider MARITZA MACIAS Referring Unavailable GUILHERME, CODY A Primary Care Unavailable GUILHERME, CODY A Primary Care Unavailable SURJIT ROBERTS Referring Unavailable GUILHERME, CODY A Primary Care Unavailable MARITZA MACIAS Referring Unavailable GUILHERME, CODY A Primary Care Unavailable MARITZA MACIAS Referring Unavailable HILARY RICHARDSON Attending Unavailable GUILHERME, CODY A Primary Care Unavailable MARITZA MACIAS Referring Unavailable GUILHERME, CODY A Primary Care Unavailable MARITZA MACIAS Referring Unavailable GUILHERME, CODY A Primary Care Unavailable Allergies Allergy Classification Reported Allergen(s) Allergy Type Date of Onset Reaction(s) Facility (7 sources) Amoxicillin; Translations: [Amoxicillin *PENICILLINS*] Drug Allergy 9 GI Upset [facility] Work Phone: (7 sources) Ciprofloxacin; Translations: [Cipro *FLUOROQUINOLONE S*] Drug Allergy 1 Rash [facility] Work Phone: (7 sources) Clarithromycin; Translations: [Biaxin *MACROLIDES*] Drug Allergy 9 GI Upset [facility] Work Phone: (1 source) Sodium 4-Aminosalicylat e *CHEMICALS*; Translations: [Sodium 4-Aminosalicylat e *CHEMICALS*] Allergy to drug (finding) [facility] Work Phone: Medications Completed/Discontinued Medications Medication Drug Class(es) Dates Sig (Normalized) Sig (Original) Adult One Daily Gummies Oral Tablet Chewable (1 source) Start: 09-13-2020 take 1 tablet by mouth once daily Adult One Daily Gummies Oral Tablet Chewable 1 (one) Tablet daily for 30 days Refills: 0 Ordered: 13-Sep-2020 Cahpo DO, Penny Chapo Penny AMAYA Start : 13-Sep-2020 Active Comments: otc Problems Active Problems Problem Classification Problem Date Documented Da te Episodic/Chronic Neoplasms of unspecified nature or uncertain behavior (10 sources) Essential thrombocythemia; Translations: [Essential (hemorrhagic) thrombocythemia] Onset: 05-20-2012 Chronic Nutritional deficiencies (1 source) Vitamin D deficiency, unspecified; Translations: [Avitaminosis D] Onset: 11-06-2022 Chronic Osteoporosis (1 source) Age-related osteoporosis without current pathological fracture; Translations: [Osteoporosis, unspecified] Onset: 11-06-2022 Chronic Other non-epithelial cancer of skin (14 sources) Basal cell carcinoma of face; Translations: [Basal cell carcinoma of skin of unspecified parts of face] Onset: 09-02-2009 09-02-2009 Episodic Other skin disorders (6 sources) Localized scleroderma; Translations: [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]] Onset: 06-04-2006 06-04-2006 Chronic Thyroid disorders (1 source) Nontoxic multinodular goiter; Translations: [Nontoxic multinodular goiter] Onset: 11-06-2022 Chronic Unclassified (2 sources) OTHER SPECIFIED DISORDERS OF SYNOVIUM, LEFT KNEE Onset: 06-19-2018 Past or Other Problems Problem Classification Problem Date Documented Da te Episodic/Chronic Allergic reactions (18 sources) Eczema; Translations: [Dermatitis, unspecified] Onset: 04-16-2011 04-16-2011 Episodic Other and unspecified benign neoplasm (6 sources) Melanocytic nevus of trunk; Translations: [Melanocytic nevi of trunk] Onset: 08-30-2010 08-30-2010 Episodic Other and unspecified benign neoplasm (6 sources) Senile angioma; Translations: [Hemangioma of skin and subcutaneous tissue] Onset: 08-30-2010 08-30-2010 Episodic Other female genital disorders (6 sources) Leukoplakia of vulva; 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] Onset: 06-05-2011 06-05-2011 Episodic Other female genital disorders (6 sources) Dysplasia of vulva; 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, unspecified] Onset: 06-05-2011 06-05-2011 Episodic Other female genital disorders (6 sources) Leukoplakia of vulva; Translations: [Circumscribed scleroderma] Onset: 11-03-2011 11-03-2011 Episodic Other inflammatory condition of skin (6 sources) Lichenified eczema; Translations: [Lichen simplex chronicus] Onset: 04-16-2011 04-16-2011 Episodic Other inflammatory condition of skin (6 sources) Inflammatory dermatosis; Translations: [Lichen simplex chronicus] Onset: 11-03-2011 11-03-2011 Episodic Other inflammatory condition of skin (6 sources) Prurigo nodularis; 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] Onset: 11-10-2012 11-10-2012 Episodic Other inflammatory condition of skin (6 sources) Itching of skin; Translations: [Pruritus, unspecified] Onset: 11-10-2012 11-10-2012 Episodic Other inflammatory condition of skin (12 sources) Lichen simplex chronicus; Translations: [Lichen simplex chronicus] Onset: 11-11-2012 11-11-2012 Episodic Other injuries and conditions due to external causes (6 sources) Excoriation of skin; Translations: [Other injury of unspecified body region, initial encounter] Onset: 11-03-2011 11-03-2011 Episodic Other injuries and conditions due to external causes (6 sources) Open wound; Translations: [Other injury of unspecified body region, initial encounter] Onset: 08-09-2012 08-09-2012 Episodic Other injuries and conditions due to external causes (6 sources) Superficial injury; Translations: [Unspecified multiple injuries, initial encounter] Onset: 11-11-2012 11-11-2012 Episodic Other skin disorders (6 sources) Seborrheic keratosis; Translations: [Other seborrheic keratosis] Onset: 06-17-2007 01-18-2014 Episodic Other skin disorders (6 sources) Foreign body granuloma of skin; Translations: [Foreign body granuloma of the skin and subcutaneous tissue] Onset: 01-10-2010 01-10-2010 Episodic Other skin disorders (6 sources) Idiopathic guttate hypomelanosis; Translations: [Other specified disorders of pigmentation] Onset: 01-10-2010 01-10-2010 Episodic Other skin disorders (6 sources) Actinic keratosis; Translations: [Actinic keratosis] Onset: 04-16-2011 04-16-2011 Episodic Other skin disorders (6 sources) Inflamed seborrheic keratosis; Translations: [Inflamed seborrheic keratosis] Onset: 04-16-2011 04-16-2011 Episodic Other skin disorders (6 sources) Pseudofolliculitis; Translations: [Other specified follicular disorders] Onset: 04-16-2011 04-16-2011 Episodic Other skin disorders (6 sources) Scar; Translations: [Scar conditions and fibrosis of skin] Onset: 04-16-2011 04-16-2011 Episodic Other skin disorders (6 sources) Solar lentigo; Translations: [Other melanin hyperpigmentation] Onset: 04-16-2011 04-16-2011 Episodic Other skin disorders (6 sources) Asteatosis cutis; Translations: [Xerosis cutis] Onset: 04-16-2011 04-16-2011 Episodic Other skin disorders (6 sources) Skin tag; Translations: [Other hypertrophic disorders of the skin] Onset: 11-03-2011 11-03-2011 Episodic Other skin disorders (6 sources) Folliculitis; Translations: [Follicular disorder, unspecified] Onset: 11-03-2011 11-03-2011 Episodic Other skin disorders (6 sources) Disorder of skin appendage; Translations: [Other hair color and hair shaft abnormalities] Onset: 11-11-2012 11-11-2012 Episodic Pancreatic disorders (not diabetes) (10 sources) Cyst of pancreas; Translations: [Cyst of pancreas] Onset: 01-05-2020 01-05-2020 Episodic Skin and subcutaneous tissue infections (6 sources) Pyoderma; Translations: [Pyoderma] Onset: 11-03-2011 11-03-2011 Episodic Unclassified (1 source) Deliveries (Parity); Translations: [Deliveries (Parity)] 09-13-2020 Results Test Name Value Interpretation Reference Range Facil ity Vital Signs Date Time Vital Sign Value Performing Clinician Marisela marina 09-05-2022 11:44-0500 Body height 153.7 cm Hilary Richardson MD Work Phone: [facility] 09-05-2022 11:44-0500 Body temperature 98.1 [degF] Hilary Richardson MD Work Phone: [facility] 09-05-2022 11:44-0500 Body weight 58.06 kg Hilary Richardson MD Work Phone: [facility] 09-05-2022 11:44-0500 Diastolic blood pressure 64 mm[Hg] Hilary Richardson MD Work Phone: [facility] 09-05-2022 11:44-0500 Heart rate 76 /min Hilary Richardson MD Work Phone: [facility] 09-05-2022 11:44-0500 Systolic blood pressure 123 mm[Hg] Hilary Richardson MD Work Phone: [facility] Encounters Encounter Date Encounter Type Care Provider Facility Start: 12-05-2022 Orders Only Yfn Lares Work Phone: Hematology/Oncology Procedures Date Procedure Procedure Detail Performing Clinician Start: 06-19-2018 Antibody screen Abebe Ibarra Plan of Treatment Date Care Activity Detail Author Start: 11-06-2025 DIABETES SCREEN DIABETES SCREEN [facility] Start: 08-23-2025 DIABETES SCREEN DIABETES SCREEN [facility] Start: 04-10-2025 DIABETES SCREEN DIABETES SCREEN [facility] Start: 09-14-2024 DIABETES SCREEN DIABETES SCREEN [facility] Start: 09-06-2023 End: 11-06-2023 Comprehensive metabolic 2000 panel - Serum or Plasma COMP METABOLIC PANEL Lab Routine Essential thrombocytosis (HCC) Expected: 09/06/2023, Expires: 11/06/2023 [facility] Work Phone: Immunizations Immunization Date Immunization Notes Care Provider [employer] 04-15-2011 pneumococcal polysaccharide vaccine, 23 valent Yfn Marin DO Work Phone: [facility] Payers Date Payer Category Payer Medicare [id number] 2021 Unknown MMO MMO MEDICARE SUPPLEMENT [id number] 2021-Present [phone] [address] [place] [address] Indemnity [id number] 2010 Unknown [id number] 2000 Medicare [id number] 2000 Medicare MEDICARE MEDICAR E A AND B [id number] 2000-Present [phone] [address] [address] [place] [address] Medicare [id number] Unknown [id number] Unknown [id number] Social History Date Type Detail Facility Exercise History Exercise History [facility] Work Phone: Clinical Notes 05-23-2010 to 09-06-2022 Telephone Encounter - Syeda Song LPN - 09/06/2022 10:27 AM Valerie Richardson MD - 09/05/2022 3:57 PM ESTTelephone Encounter - Malena Pryor LPN - 09/05/2022 2:26 PM EST Note Date & Type Note Facility 09-06-2022 Miscellaneous Notes Please send Rx to pharmacy as discussed at yesterday's office visit. Syeda Song LPN documented in this encounter [facility] 09-05-2022 Note HNO ID: [id number] Author: Hilary Richardson MD Service: ? Author Type: Physician Type: Progress Notes Filed: 09/05/2022 4:06 PM Note Text: SERVICE DATE: September 05, 2022 CHIEF COMPLAINT: Kellie Hudson is a 86 year old female returning today for follow up of her essential thrombocytosis and pancreatic cystic tumor INTERVAL HISTORY: Delightful 86-year-old white lady who had been followed for essential thrombocytosis. Most recently she was instructed to take hydroxyurea 500 mg every other day. Current platelet count is 511 from previous level of 420,000. 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 She really denies any relevant symptoms including abdominal pain, early satiety, significant changes of bowel habits, anorexia or jaundice Diagnostic Studies: Reviewed CURRENT MEDICATIONS: multivitamin/iron/folic acid (CENTRUM WOMEN ORAL) Take 1 tablet by mouth once daily. hydroxyurea (HYDREA) 500 mg capsule Take 1 capsule by mouth every 48 hours. bevacizumab ophthalmic (AVASTIN) 1.25 mg/0.05 mL syringe One injection in left eye every 12 weeks. betamethasone dipropionate 0.05 % ointment Apply 1 application to affected area as needed. metoprolol succinate ER (TOPROL XL) 25 mg 24 hr tablet Take 1/2 tablet by mouth once daily. Magnesium Oxide 500 mg tab Take 500 mg by mouth once daily. ubidecarenone Q-10 (CO Q-10) 10 mg cap Take two capsules by mouth once daily. INULIN (FIBER SELECT GUMMIES ORAL) Take 2 capsules by mouth once daily. docusate sodium (STOOL SOFTENER) 100 mg capsule Take 100 mg by mouth three times daily as needed. ergocalciferol, vitamin D2, (VITAMIN D) 50,000 unit capsule Take one capsule every two weeks. CALCIUM CITRATE (CITRACAL ORAL) Take 1 tablet by mouth twice daily. ZOLEDRONIC ACID/MANNITOLANDWATER (RECLAST INTRAVEN.) Inject intravenously. Infusion every 2 years. Cholecalciferol, Vitamin D3, (VITAMIN D) 1,000 unit Tab Take 1,000 Units by mouth once daily. PROAIR HFA 90 mcg/actuation inhaler Inhale 2 Puffs as instructed every 4 hours as needed. MINERAL OIL/HYDROPHIL PETROLAT (AQUAPHOR TOPICAL) Apply to affected area. as needed BACITRACIN/POLYMYXIN B SULFATE (POLYSPORIN TOPICAL) Apply to affected area. as needed. FLUTICASONE 50 MCG/ACTUATION NASAL SPRAY, SUSP Two sprays in each nostril twice daily as needed. ALLERGIES/INTOLERANCES: ALLERGIES Allergen Reactions Ciprofloxacin Rash Itching and rash Amoxicillin GI Upset Biaxin [Clarithromy* GI Upset Atorvastatin Myalgia Sodium Pentathal [T* GI Upset Heavy vomiting ROS: No dizziness, lightheadedness, chest tightness or discomfort or any increase headaches No nausea vomiting or stomatitis No bleeding including epistaxis, bleeding from the gums, hematochezia, melena, hematuria or hematemesis No abdominal pain, nausea, vomiting, changes of bowel habits, fullness or early satiety, anorexia or weight loss PHYSICAL EXAM: BP 123/64 Pulse 76 Temp 36.7 ?C (98.1 ?F) (Temporal) Ht 153.7 cm (5' 0.5 ) Wt 58.1 kg (128 lb) BMI 24.59 kg/m2 Body mass index is 24.59 kg/m?. ECO No lymphadenopathy or palpable masses Lungs are clear to auscultation percussion No abdominal tenderness rebound tenderness or hepatosplenomegaly DATA REVIEW: I personally reviewed the patient's data and medical records. PERTINENT LABS: Reviewed PERTINENT IMAGING: Reviewed ASSESSMENT AND Plan Essential thrombocytosis. Given the current increase will adjust hydroxyurea dose to 500 mg daily. Other option is daily Sunday through Fridays with Sunday and Sunday off. However would be easier and hence reliable for her to take it on a daily basis. Will monitor CBC every 3 months and see her in a year We discussed his pancreatic cyst in depth. We went over pros and cons of surgery versus continued surveillance. She does not want anything to be done which is very reasonable given her age and other factors. No sense of continuing imaging surveillance so we will stop that. I instructed her to let us know if she has any symptoms and I am sure she will The patient was able to ask questions and these were answered in detail. Hilary Richardson MD cc: Maritza Vanegas DO [facility] 09-05-2022 History of Present illness Narrative Images from the original note were not included. SERVICE DATE: September 05, 2022 CHIEF COMPLAINT: Kellie Hudson is a 86 year old female returning today for follow up of her essential thrombocytosis and pancreatic cystic tumor INTERVAL HISTORY: Delightful 86-year-old white lady who had been followed for essential thrombocytosis. Most recently she was instructed to take hydroxyurea 500 mg every other day. Current platelet count is 511 from previous level of 420,000. 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 She really denies any relevant symptoms including abdominal pain, early satiety, significant changes of bowel habits, anorexia or jaundice Diagnostic Studies: Reviewed CURRENT MEDICATIONS: multivitamin/iron/folic acid (CENTRUM WOMEN ORAL) Take 1 tablet by mouth once daily. hydroxyurea (HYDREA) 500 mg capsule Take 1 capsule by mouth every 48 hours. bevacizumab ophthalmic (AVASTIN) 1.25 mg/0.05 mL syringe One injection in left eye every 12 weeks. betamethasone dipropionate 0.05 % ointment Apply 1 application to affected area as needed. metoprolol succinate ER (TOPROL XL) 25 mg 24 hr tablet Take 1/2 tablet by mouth once daily. Magnesium Oxide 500 mg tab Take 500 mg by mouth once daily. ubidecarenone Q-10 (CO Q-10) 10 mg cap Take two capsules by mouth once daily. INULIN (FIBER SELECT GUMMIES ORAL) Take 2 capsules by mouth once daily. docusate sodium (STOOL SOFTENER) 100 mg capsule Take 100 mg by mouth three times daily as needed. ergocalciferol, vitamin D2, (VITAMIN D) 50,000 unit capsule Take one capsule every two weeks. CALCIUM CITRATE (CITRACAL ORAL) Take 1 tablet by mouth twice daily. ZOLEDRONIC ACID/MANNITOL&WATER (RECLAST INTRAVEN.) Inject intravenously. Infusion every 2 years. Cholecalciferol, Vitamin D3, (VITAMIN D) 1,000 unit Tab Take 1,000 Units by mouth once daily. PROAIR HFA 90 mcg/actuation inhaler Inhale 2 Puffs as instructed every 4 hours as needed. MINERAL OIL/HYDROPHIL PETROLAT (AQUAPHOR TOPICAL) Apply to affected area. as needed BACITRACIN/POLYMYXIN B SULFATE (POLYSPORIN TOPICAL) Apply to affected area. as needed. FLUTICASONE 50 MCG/ACTUATION NASAL SPRAY, SUSP Two sprays in each nostril twice daily as needed. ALLERGIES/INTOLERANCES: ALLERGIES Allergen Reactions Ciprofloxacin Rash Itching and rash Amoxicillin GI Upset Biaxin [Clarithromy* GI Upset Atorvastatin Myalgia Sodium Pentathal [T* GI Upset Heavy vomiting ROS: No dizziness, lightheadedness, chest tightness or discomfort or any increase headaches No nausea vomiting or stomatitis No bleeding including epistaxis, bleeding from the gums, hematochezia, melena, hematuria or hematemesis No abdominal pain, nausea, vomiting, changes of bowel habits, fullness or early satiety, anorexia or weight loss PHYSICAL EXAM: BP 123/64 Pulse 76 Temp 36.7 C (98.1 F) (Temporal) Ht 153.7 cm (5' 0.5 ) Wt 58.1 kg (128 lb) BMI 24.59 kg/m2 Body mass index is 24.59 kg/m . ECO No lymphadenopathy or palpable masses Lungs are clear to auscultation percussion No abdominal tenderness rebound tenderness or hepatosplenomegaly DATA REVIEW: I personally reviewed the patient's data and medical records. PERTINENT LABS: Reviewed PERTINENT IMAGING: Reviewed ASSESSMENT AND Plan Essential thrombocytosis. Given the current increase will adjust hydroxyurea dose to 500 mg daily. Other option is daily Sunday through Fridays with Sunday and Sunday off. However would be easier and hence reliable for her to take it on a daily basis. Will monitor CBC every 3 months and see her in a year We discussed his pancreatic cyst in depth. We went over pros and cons of surgery versus continued surveillance. She does not want anything to be done which is very reasonable given her age and other factors. No sense of continuing imaging surveillance so we will stop that. I instructed her to let us know if she has any symptoms and I am sure she will The patient was able to ask questions and these were answered in detail. Hilary Richardson MD cc: Maritza Vanegas, documented in this encounter [facility] 09-05-2022 Miscellaneous Notes faxed. Malena Pryor LPN Will fax after she sees Dr Richardson on 09/05/21. Malena Pryor LPN Not read yet. Malena Pryor LPN Patient asking for recent CT results to be faxed to her PCP Dr. Cody Vanegas documented in this encounter [facility] 08-23-2022 Note HNO ID: [id number] Author: Kristi Landrum RT(R) Service: ? Author Type: [employer] Representative Type: Progress Notes Filed: 08/23/2022 2:00 PM Note Text: Radiology Service Progress Note DATE OF SERVICE: August 23, 2022 TIME: 2:00 PM PATIENT IDENTITY VERIFICATION COMPLETED USING TWO (2) STANDARD IDENTIFIERS: Name and Date of confirmed by patient verbally. FALL SCREENING: Has the patient had 2 falls in the last year or 1 fall with injury or currently using an Ambulatory Assistive Device (Walker, Cane, Wheelchair, Crutches, etc.)? No PATIENT GENDER DATA: Female. status: : No status: NO. PATIENT RELEVANT IMPLANT DATA REVIEWED: Yes ALLERGIES: Reviewed and unchanged CONTRAST ALLERGY: NO. EXAM: CT -CONTRAST INDUCED NEPHROPATHY RISK FACTORS: Patient age > 60 years CREATININE: Creatinine Date Value Ref Range Status 08/23/2022 0.64 0.58 - 0.96 mg/dL Final 04/10/2022 0.67 0.58 - 0.96 mg/dL Final 03/22/2022 0.63 0.58 - 0.96 mg/dL Final Estimated Glomerular Filtration Rate Date Value Ref Range Status 08/23/2022 86 >=60 mL/min/1.73m? Final Comment: Estimated Glomerular Filtration Rate (eGFR) is calculated using the 2020 CKD-EPI creatinine equation. This equation utilizes serum creatinine, sex, and age as parameters. The creatinine assay has traceable calibration to isotope dilution-mass spectrometry. Refer to KDIGO guidelines for clinical interpretation. In patients with unstable renal function, e.g. those with acute kidney injury, the eGFR may not accurately reflect actual GFR. eGFR- Date Value Ref Range Status 08/08/2021 >60 Final P.O.C.T. RESULTS: POC done: Yes, See Lab Tab August 23, 2022 TREATMENT: N/A PERIPHERAL IV DATA: Ambulatory: A peripheral IV was started in the Left antecubital site with a Angio cath: 22 gauge. RADIOLOGY DEPARTMENT: CT; Exam(s) Completed: Abdomen SIGNATURE: RT Waleska(R) PATIENT NAME: eKllie Hudson DATE: August 23, 2022 TIME: 2:[address] [facility] 07-31-2022 Miscellaneous Notes spoke with patient. She had questions about the use of her medication due to insurance coverage. The federal appellate law clerk was denying her due to hydrea. Questions answered. No further action required. Malena Pryor LPN Patient is calling in regards to the Hydrea mediation, she states she is on this due to high platelet count prior to a hip surgery in 2012. 2 yrs ago she did have a pancrease biopsy and choose to not have the surgery that was offered. But she is wondering if this medication is keeping her from getting cancer in this cyst. As there was a chance of cancer if she did not do the surgery. And is there a chance of cancer if she would stop the medication. Please advise the patient as she is also asking if there is any other medication that she could take to help keep her platelets down. documented in this encounter [facility] documented as of this encounter (statuses as of 03/21/2022) [facility] History of Past illness Narrative* Problem Noted Date Resolved Date Skin tags 05/23/2010 11/10/2012 Open wound(s) (multiple) of unspecified site(s), without mention of complication 11/03/2009 11/03/2011 Neoplasm of uncertain behavior of skin 0 11/03/2011 Other and unspecified malign ant neoplasm of skin of other and unspecified parts of face 09/02/2009 11/10/2012 ACTINIC DAMAGE///CHR SOLAR SKIN DAMAGE NOS 07/0811/03/2011 SOLAR LENTIGINES///DYSCHROMIA OTHER 07/08/2008 11/03/2011 Scar condition and fibrosis of skin 06/04/2006 11/10/2012 Dyschromia, unspecified 06/04/2006 11/03/19 12 documented as of this encounter (statuses as of 07/31/2022) [facility] History of Past illness Narrative* Problem Noted Date Resolved Date Skin tags 05/23/2010 11/10/2012 Open wound(s) (multiple) of unspecified site(s), without mention of complication 11/03/2009 11/03/2011 Neoplasm of uncertain behavior of skin 0 11/03/2011 Other and unspecified malign ant neoplasm of skin of other and unspecified parts of face 09/02/2009 11/10/2012 ACTINIC DAMAGE///CHR SOLAR SKIN DAMAGE NOS 07/0811/03/2011 SOLAR LENTIGINES///DYSCHROMIA OTHER 07/08/2008 11/03/2011 Scar condition and fibrosis of skin 06/04/2006 11/10/2012 Dyschromia, unspecified 06/04/2006 11/03/19 12 documented as of this encounter (statuses as of 09/05/2022) [facility] History of Past illness Narrative* Problem Noted Date Resolved Date Skin tags 05/23/2010 11/10/2012 Open wound(s) (multiple) of unspecified site(s), without mention of complication 11/03/2009 11/03/2011 Neoplasm of uncertain behavior of skin 0 11/03/2011 Other and unspecified malign ant neoplasm of skin of other and unspecified parts of face 09/02/2009 11/10/2012 ACTINIC DAMAGE///CHR SOLAR SKIN DAMAGE NOS 07/0811/03/2011 SOLAR LENTIGINES///DYSCHROMIA OTHER 07/08/2008 11/03/2011 Scar condition and fibrosis of skin 06/04/2006 11/10/2012 Dyschromia, unspecified 06/04/2006 11/03/19 12 documented as of this encounter (statuses as of 09/06/2022) [facility] [facility] of Past illness Narrative* Problem Noted Date Resolved Date Skin tags 05/23/2010 11/10/2012 Open wound(s) (multiple) of unspecified site(s), without mention of complication 11/03/2009 11/03/2011 Neoplasm of uncertain behavior of skin 0 11/03/2011 Other and unspecified malign ant neoplasm of skin of other and unspecified parts of face 09/02/2009 11/10/2012 ACTINIC DAMAGE///CHR SOLAR SKIN DAMAGE NOS 07/0811/03/2011 SOLAR LENTIGINES///DYSCHROMIA OTHER 07/08/2008 11/03/2011 Scar condition and fibrosis of skin 06/04/2006 11/10/2012 Dyschromia, unspecified 06/04/2006 11/03/19 12 documented as of this encounter (statuses as of 09/06/2022) [facility] History of Past illness Narrative* Problem Noted Date Resolved Date Skin tags 05/23/2010 11/10/2012 Open wound(s) (multiple) of unspecified site(s), without mention of complication 11/03/2009 11/03/2011 Neoplasm of uncertain behavior of skin 0 11/03/2011 Other and unspecified malign ant neoplasm of skin of other and unspecified parts of face 09/02/2009 11/10/2012 ACTINIC DAMAGE///CHR SOLAR SKIN DAMAGE NOS 07/0811/03/2011 SOLAR LENTIGINES///DYSCHROMIA OTHER 07/08/2008 11/03/2011 Scar condition and fibrosis of skin 06/04/2006 11/10/2012 Dyschromia, unspecified 06/04/2006 11/03/19 12 documented as of this encounter (statuses as of 12/06/2022) 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 Summary Purpose Family History No Family History Records FoundNo Family History Records FoundNo Family History Records FoundNo Family History Records FoundNo Family History Records FoundNo Family History Records FoundNo Family History Records Found Advance Directives No Advanced Directives Records FoundNo Advanced Directives Records FoundNo Advanced Directives Records FoundNo Advanced Directives Records FoundNo Advanced Directives Records FoundNo Advanced Directives Records FoundNo Advanced Directives Records Found Additional Source Comments INFORMATION SOURCE (unrecogn ized section and content) DATE CREATED AUTHOR AUTHOR'S ORGANIZ ATION 12/21/2017 [facility] DATE CREATED AUTHOR AUTHOR'S ORGANIZ ATION 07/27/2018 [facility] [place] DATE CREATED AUTHOR AUTHOR'S ORGANIZ ATION 11/16/2019 [facility] ([place]) DATE CREATED AUTHOR AUTHOR'S ORGANIZ ATION 02/10/2020 [facility] DATE CREATED AUTHOR AUTHOR'S ORGANIZ ATION 02/11/2020 [facility] DATE CREATED AUTHOR AUTHOR'S ORGANIZ ATION 02/17/[address] [facility] Source Comments (unrecognize d section and content) In the event this informatio n is protected by the Federal Confidentiality of Alcohol and Drug Abuse Patient Records regulations: The Federal rules restrict any use of the information to criminally investigate or prosecute any alcohol or drug abuse patient.[facility] the event this information is protected by the Federal Confidentiality of Alcohol and Drug Abuse Patient Records regulations: The Federal rules restrict any use of the information to criminally investigate or prosecute any alcohol or drug abuse patient.[facility] the event this information is protected by the Federal Confidentiality of Alcohol and Drug Abuse Patient Records regulations: The Federal rules restrict any use of the information to criminally investigate or prosecute any alcohol or drug abuse patient.[facility] the event this information is protected by the Federal Confidentiality of Alcohol and Drug Abuse Patient Records regulations: The Federal rules restrict any use of the information to criminally investigate or prosecute any alcohol or drug abuse patient.[facility] the event this information is protected by the Federal Confidentiality of Alcohol and Drug Abuse Patient Records regulations: The Federal rules restrict any use of the information to criminally investigate or prosecute any alcohol or drug abuse patient.[facility] the event this information is protected by the Federal Confidentiality of Alcohol and Drug Abuse Patient Records regulations: The Federal rules restrict any use of the information to criminally investigate or prosecute any alcohol or drug abuse patient.[facility] Care Teams (unrecognized sec tion and content) Maintenance Journeyman Relationship Specialty Start Date End Date Cody Vanegas, DO [address] [place], [place] [id number] PCP - General Family Medicine 09/04/18 Maintenance Journeyman Relationship Specialty Start Date End Date Cody Vanegas, [address] [place] [phone] PCP - General Family Medicine 09/04/18 Maintenance Journeyman Relationship Specialty Start Date End Date Cody Vanegas, DO [address] [place] [address] PCP - General Family Medicine 09/04/18 Maintenance Journeyman Relationship Specialty Start Date End Date Cody Vanegas DO [address] [place] [address] PCP - General Family Medicine 09/04/18 Reason for Visit (unrecogniz ed section and content) Reason Comments Results Reason Comments Established Patient Reason Onset Date Comments Refill Request 09/06/2022 FOR RECORDS PERTAINING TO PATIENTS WHO ARE OR HAVE BEEN ENROLLED IN A CHEMICAL DEPENDENCY/SUBSTANCEABUSE PROGRAM, SOME INFORMATION MAY BE OMITTED. This clinical summary was aggregated from multiple sources. Caution should be exercised in using it in the provision of clinical care. This summary normalizes information from multiple sources, and as a consequence, information in this document may materially change the coding, format and clinical context of patient data. In addition, data may be omitted in some cases. CLINICAL DECISIONS SHOULD BE BASED ON THE PRIMARY CLINICAL RECORDS. [employer] provides no warranty or guarantee of the accuracy or completeness of information in this document.
[2023-07-27 15:23] LABS: Absolute Lymphocyte Count 0.87 X10^3/uL (0.83-4.51); Absolute Neutrophil Count 2.6 X10^3/uL (2.0-7.7); Basophil# 0.03 X10^3/uL; Basophil% 0.7 % (0-1); Eosinophil# 0.07 X10^3/uL; Eosinophils% 1.7 % (0-5); Hematocrit 42.5 % (37-47); Hemoglobin 13.5 g/dL (12.0-15.0); Lymphocyte # 0.87 X10^3/ul (0.83-4.51); Lymphocyte % 21.3 % (19-41); Mean Corp Hgb Conc 31.8 g/dL (32-36); Mean Corpuscular Hgb 34.6 pg (27.0-32.0); Mean Platelet Vol. 9.3 fl (6.2-12.0); Monocyte# 0.51 X10^3/uL; Monocyte% 12.5 % (0-10); NRBC Flagged by Analyzer 0 % (0-5); Neutrophil # 2.61 X10^3/uL (2.7-7.7); Neutrophil % 63.8 % (47-70); Platelet Count 310 K/mm3 (150-450); RBC Distribution Width CV 15.2 % (11.6-14.6); RBC Distribution Width SD 60.7 fl (35.1-43.9); White Blood Count 4.1 K/mm3 (4.4-11.0)
[2023-07-27 15:53] LABS: Vitamin B12 693 pg/mL (211-911)
[2023-07-27 16:25] LABS: ALB/GLOB Ratio 1.1 RATIO (0.9-2.4); AST(SGOT) 28 U/L (15-37); Alanine Aminotransfer ALT/SGPT 43 U/L (13-56); Albumin, Serum 3.4 g/dL (3.2-5.0); Alkaline Phosphatase 145 U/L (45-117); Anion Gap 5 (5-15); BUN 21 mg/dL (7-18); BUN/Creat Ratio 36.7 RATIO (10-20); Calcium,Total 9.3 mg/dL (8.5-10.1); Chloride 104 mmol/L (98-107); Creatinine, Serum 0.57 mg/dL (0.55-1.02); EST Glomerular Filtration Rate 106 mL/min (>60); Est Glom Filt Rate - Afr Amer 128 mL/min (>60); Globulin 3.1 g/dL (2.2-4.2); Glucose 83 mg/dL (74-106); Potassium 4.2 mmol/L (3.5-5.1); Protein, Total 6.5 g/dL (6.4-8.2); Sodium Level 136 mmol/L (136-145); Thyroid Stim Hormone (TSH) 2.03 uIU/mL (0.358-3.74)
== END | disposition home or self-care (01) ==
LOC: BFHLAB 11:27
PROVIDERS: PCP Family Medicine; Visit Provider Family Medicine
DX: D47.3 Essential (hemorrhagic) thrombocythemia (principal); G62.9 Polyneuropathy, unspecified; E03.9 Hypothyroidism, unspecified
CPT/HCPCS: 36415; 80053; 82607; 82746; 84443; 85025

== ENCOUNTER → 2023-08-24 | Outpatient (CLI) | payer MEDICARE, OTHER, SELFPAY ==
--- OUTSIDE RECORDS SUMMARY | 2023-08-24 11:57 | XMS RPT_ITS | CCD ---
Author Name Unknown Address [address] [place] [address] Organization [facility] Care Team Providers Care Erp Project Manager Name Role Phone Abebe Ibarra Attending Unavailable [...] for 30 days Refills: 0 Ordered: 13-Sep-2020 Chapo DO, Penny Chapo Penny AMAYA Start : [...] 153.7 cm Hilary Richardson MD Work Phone: [facility] 09-05-2022 11:44-0500 Body temperature 98.1 [degF] Hilary Richardson MD Work Phone: [facility] 09-05-2022 11:44-0500 Body weight 58.06 kg Hilary Richardson MD Work Phone: [facility] 09-05-2022 11:44-0500 Diastolic blood pressure 64 mm[Hg] Hilary Richardson MD Work Phone: [facility] 09-05-2022 11:44-0500 Heart rate 76 /min Hilary Richardson MD Work Phone: [facility] 09-05-2022 11:44-0500 Systolic blood pressure 123 mm[Hg] Hilary Richardson MD Work Phone: [facility] Encounters Encounter Date Encounter Type Care Provider Facility Start: 12-05-2022 Orders Only Yfn Lares Work Phone: Hematology/Oncology Procedures Date Procedure Procedure Detail Performing Clinician Start: 06-19-2018 Antibody screen Abebe Ibarra Plan of Treatment Date Care Activity Detail Author Start: 11-06-2025 DIABETES SCREEN DIABETES SCREEN [facility] Start: 08-23-2025 DIABETES SCREEN DIABETES SCREEN [facility] Start: 04-10-2025 DIABETES SCREEN DIABETES SCREEN [facility] Start: 09-14-2024 DIABETES SCREEN DIABETES SCREEN [facility] Start: 09-06-2023 End: 11-06-2023 Comprehensive metabolic 2000 panel - Serum or Plasma COMP METABOLIC PANEL Lab Routine Essential thrombocytosis (HCC) Expected: 09/06/2023, Expires: 11/06/2023 [facility] Work Phone: Immunizations Immunization Date Immunization Notes Care Provider [employer] 04-15-2011 pneumococcal polysaccharide vaccine, 23 valent Yfn Marin DO Work Phone: [facility] Payers Date Payer Category Payer Medicare [id number] 2021 Unknown MMO MMO MEDICARE SUPPLEMENT [id number] 2021-Present [phone] [address] [place] [address] Indemnity [id number] 2010 Unknown [id number] 2000 Medicare [id number] 2000 Medicare MEDICARE MEDICAR E A AND B [id number] 2000-Present [phone] [address] [address] [place] [address] Medicare [id number] Unknown [id number] Unknown [id number] Social History Date Type Detail Facility Exercise [...] Syeda Song LPN documented in this encounter [facility] 09-05-2022 Note HNO ID: [id number] Author: Hilary Richardson MD Service: ? Author [...] Hilary Richardson MD cc: Maritza Vanegas DO [facility] 09-05-2022 History of Present illness Narrative [...] cc: Maritza Vanegas, documented in this encounter [facility] 09-05-2022 Miscellaneous Notes faxed. Malena Pryor LPN Will fax after she sees Dr Richardson on 09/05/21. Malena Pryor LPN Not read yet. Malena Pryor LPN Patient asking for recent CT results to be faxed to her PCP Dr. Cody Vanegas documented in this encounter [facility] 08-23-2022 Note HNO ID: [id number] Author: Kristi Landrum RT(R) Service: ? Author Type: Tube Winder Hand Type: Progress Notes Filed: 08/23/2022 2:00 PM [...] Completed: Abdomen SIGNATURE: RT Waleska(R) PATIENT NAME: Kellie Hudson DATE: August 23, 2022 TIME: 2:00 PM [facility] 07-31-2022 Miscellaneous Notes spoke with patient. She had questions about the use of her medication due to insurance coverage. The shingle inspector was denying her due to hydrea. Questions [...] her platelets down. documented in this encounter [facility] documented as of this encounter (statuses as of 03/21/2022) [facility] History of Past illness Narrative* Problem [...] of this encounter (statuses as of 07/31/2022) [facility] History of Past illness Narrative* Problem [...] of this encounter (statuses as of 09/05/2022) [facility] History of Past illness Narrative* Problem [...] of this encounter (statuses as of 09/06/2022) [facility] History of Past illness Narrative* Problem [...] of this encounter (statuses as of 09/06/2022) [facility] of Past illness Narrative* Problem [...] of this encounter (statuses as of 12/06/2022) [facility] Diagnosis 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 [facility] Diagnosis 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 Cyst and pseudocyst of pancreas H/O Malignant Neoplasm of Skin: L cheek face: BCC Personal history of other malignant neoplasm of skin [facility] Diagnosis 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 Cyst and pseudocyst of pancreas Personal history of other malignant neoplasm of skin documented in this encounter [facility] Summary Purpose Family History No Family [...] DATE CREATED AUTHOR AUTHOR'S ORGANIZ ATION 12/21/2017 [facility] DATE CREATED AUTHOR AUTHOR'S ORGANIZ ATION 07/27/2018 [facility] [place] DATE CREATED AUTHOR AUTHOR'S ORGANIZ ATION 11/16/2019 [facility] ([place]) DATE CREATED AUTHOR AUTHOR'S ORGANIZ ATION 02/10/2020 [facility] DATE CREATED AUTHOR AUTHOR'S ORGANIZ ATION 02/11/2020 [facility] DATE CREATED AUTHOR AUTHOR'S ORGANIZ ATION 02/17/2023 [facility] Source Comments (unrecognize d section and content) In the event this informatio n is protected by the Federal Confidentiality of Alcohol and Drug Abuse Patient Records regulations: The Federal rules restrict any use of the information to criminally investigate or prosecute any alcohol or drug abuse patient.[facility] the event this information is protected by the Federal Confidentiality of Alcohol and Drug Abuse Patient Records regulations: The Federal rules restrict any use of the information to criminally investigate or prosecute any alcohol or drug abuse patient.[facility] the event this information is protected by the Federal Confidentiality of Alcohol and Drug Abuse Patient Records regulations: The Federal rules restrict any use of the information to criminally investigate or prosecute any alcohol or drug abuse patient.[facility] the event this information is protected by the Federal Confidentiality of Alcohol and Drug Abuse Patient Records regulations: The Federal rules restrict any use of the information to criminally investigate or prosecute any alcohol or drug abuse patient.[facility] the event this information is protected by the Federal Confidentiality of Alcohol and Drug Abuse Patient Records regulations: The Federal rules restrict any use of the information to criminally investigate or prosecute any alcohol or drug abuse patient.[facility] the event this information is protected by the Federal Confidentiality of Alcohol and Drug Abuse Patient Records regulations: The Federal rules restrict any use of the information to criminally investigate or prosecute any alcohol or drug abuse patient.[facility] Care Teams (unrecognized sec tion and content) Erp Project Manager Relationship Specialty Start Date End Date Cody Vanegas, DO [address] [place], [place] [phone] PCP - General Family Medicine 09/04/18 Erp Project Manager Relationship Specialty Start Date End Date Cody Vanegas, [address] [place] [id number] PCP - General Family Medicine 09/04/18 Erp Project Manager Relationship Specialty Start Date End Date Cody Vanegas, DO [address] [place] [address] PCP - General Family Medicine 09/04/18 Erp Project Manager Relationship Specialty Start Date End Date Cody Vanegas DO [address] [address] PCP - General Family Medicine [...] BE BASED ON THE PRIMARY CLINICAL RECORDS. [employer] provides no warranty or guarantee of the accuracy or completeness of information in this document.
[2023-08-24 13:09] LABS: Absolute Lymphocyte Count 0.83 X10^3/uL (0.83-4.51); Absolute Neutrophil Count 1.6 X10^3/uL (2.0-7.7); Basophil# 0.02 X10^3/uL; Basophil% 0.7 % (0-1); Eosinophil# 0.08 X10^3/uL; Eosinophils% 2.7 % (0-5); Hemoglobin 13.2 g/dL (12.0-15.0); Lymphocyte # 0.83 X10^3/ul (0.83-4.51); Lymphocyte % 28.1 % (19-41); Mean Corp Hgb Conc 32.2 g/dL (32-36); Mean Corpuscular Hgb 35.5 pg (27.0-32.0); Mean Corpuscular Volume 110.2 fL (81-99); Mean Platelet Vol. 8.9 fl (6.2-12.0); Monocyte# 0.37 X10^3/uL; Monocyte% 12.5 % (0-10); NRBC Flagged by Analyzer 0 % (0-5); Neutrophil # 1.64 X10^3/uL (2.7-7.7); Neutrophil % 55.7 % (47-70); Platelet Count 314 K/mm3 (150-450); RBC Distribution Width CV 14.9 % (11.6-14.6); RBC Distribution Width SD 59.8 fl (35.1-43.9); Red Blood Count 3.72 M/mm3 (4.2-5.4)
== END | disposition home or self-care (01) ==
LOC: BFHLAB 11:23
PROVIDERS: PCP Family Medicine; Visit Provider Family Medicine
DX: D47.3 Essential (hemorrhagic) thrombocythemia (principal)
CPT/HCPCS: 36415; 85025

== ENCOUNTER → 2023-08-29 | Outpatient (CLI) | payer MEDICARE, OTHER, SELFPAY ==
--- NOTE | 2023-08-29 11:26 | US_ITS ---
ACR Level 3 findings have been noted. An addendum which confirms receipt of the report will follow. INDICATION: NODULE left f/u EXAMINATION: Ultrasound US Thyroid (eg thyroid, parathyroid, parotid) TECHNIQUE: Carter scale and color doppler imaging was performed of the thyroid gland. COMPARISON: No ultrasound images are available for comparison. [facility] report from 08/02/2021 obtained. FINDINGS: RIGHT THYROID LOBE: 4.7.x 1.6 x 2.2 cm. Mildly heterogeneous echotexture with normal vascularity. [ Nodules: 1. Posterior mid 0.8 x 0.6 x 0.7 cm solid hypoechoic nodule wider than tall with lobulated margins and no calcifications, TI RAD 4 2. Inferior 0.8 x 0.9 x 0.6 cm completely anechoic colloid cyst, TI RAD 1 3. Mid thyroid 0.3 x 0.3 x 0.2 cm solid hypoechoic nodule wider than tall with smooth margins and no calcifications, TI RAD 4 Additional smaller colloid cysts are also present. LEFT THYROID LOBE: 4.7 x 2.4 x 3.1 cm. Mildly heterogeneous echotexture with normal vascularity. [No thyroid nodules are present. 1. Inferior 1.5 x 0.9 x 0.9 cm cm solid hypoechoic nodule wider than tall with lobulated margins and no calcifications, TI RAD 4 2. Inferior 2.2 x 2.4 x 1.8 cm cm solid hypoechoic nodule taller than wide with indistinct margins and shadowing microcalcification, TI RAD 5 ISTHMUS: 0.4 cm. No thyroid nodules are present. US/Thyroid IMPRESSION: Multinodular thyroid, most conspicuous measuring 2.4 cm TI RADS 5 in the left lower pole and 1.5 cm TI-RAD 4 in the left lower pole . No images from prior ultrasounds were available upon attempt to obtain from the imaging center. [facility] report from 08/02/2021 describes a single 1.3 cm left lower lobe nodule worrisome for previously indistinct or enlarging nodules. Consider fine-needle aspiration of the left thyroid nodules per TI-RADS criteria. Electronically Signed: Ramez Martinez MD at 10:58 EST ,
== END | disposition home or self-care (01) ==
LOC: US 11:24
PROVIDERS: PCP Family Medicine; Referring Provider Family Medicine; Visit Provider Family Medicine
DX: E04.1 Nontoxic single thyroid nodule (principal)
CPT/HCPCS: 76536

== ENCOUNTER → 2023-09-14 | Outpatient (CLI) | payer MEDICARE, OTHER, SELFPAY ==
--- NOTE | 2023-09-14 | FLU_PTH ---
PATHOLOGY RESULTS PATIENT: LEW HUDSON LOC: [facility] U#:[id number] AGE/SX: 87/F ROOM: RE09/14/[address]: Dr. Abebe Keene MD : [id number] BED: DIS: 09/14/2023 SPEC #: [id number] RECD: 09/14/23 16:40 STATUS: SWATHI REQ #: [id number] CANDY: 09/14/23 00:[address]: Abebe Keene DEPT: CYTOLOGY RECD BY: Keron Ford ENTERED: 09/17/23 10:28 SP TYPE: Fluid OTHR DR: Dr. Nathan Vanegas DO Tissues: Thyroid gland, NOS Thyroid gland, NOS Thyroid gland, NOS Thyroid gland, NOS Procedures: Special Stain Group II Surgery Specimen Level IV Cytospin Fluid HEADER OPERATION: Fine needle aspiration L thyroid nodule x2 PRE-OP DIAGNOSIS: Left thyroid nodule TISSUE SUBMITTED: A- left thyroid inferior medial nodule fluid, B- Left thyroid inferior medial nodule x 4 smears, C- Left inferior lateral thyroid nodule fluid, D- Left inferior lateral thyroid nodule x4 smears DIAGNOSIS CYTOLOGY A. Left thyroid inferior medial nodule fluid, fine needle aspiration (cytospin and cell block). Negative for malignant cells. See comment. B. Left thyroid inferior medial nodule, fine needle aspiration (smears); Consistent with benign follicular/colloid nodule with cystic changes, Liberal Category II. Adequate for evaluation. C. Left inferior lateral thyroid nodule fluid, fine needle aspiration (cytospin and cellblock); Negative for malignant cells. See comment. D. Left inferior lateral thyroid nodule, fine needle aspiration (smears); Consistent with benign follicular/colloid nodule with cystic changes, Liberal Category II. See comment. KALYN/ 09/18/2023 COMMENT A. A few clusters of benign follicular cells and macrophages are noted. C. The specimen consists of A few macrophages and rare benign follicular cells. D. The specimen is paucicellular however meets the minimal criteria for adequacy. Correlation with clinical, radiologic findings and appropriate follow up are necessary. The Liberal System for thyroid diagnostic categorization was used in the evaluation of this case. CYTOLOGY STUDY Slides are reviewed. CYTOLOGY GROSS A. Received is 12 ml of red-cloudy fluid labeled with the patient's name and and designated per the requisition as Left medial inferior thyroid nodule. Submitted for cytology preparation including cell block. B. Received are 4 smears labeled with the patient's name and designated per the requisition as Left medial inferior thyroid nodule. Submitted for staining. C. Received is 20 ml of red-cloudy fluid labeled with the patient's name and and designated per the requisition as Left inferior lateral thyroid nodule. Submitted for cytology preparation including cell block. D. Received are 4 smears labeled with the patient's name and designated per the requisition as Left inferior lateral thyroid nodule. Submitted for staining. KALYN/ 09/17/23 TC:5 CPT: 90807l9, 59005r6
--- OUTSIDE RECORDS SUMMARY | 2023-09-14 19:40 | XMS RPT_ITS | CCD ---
Author Name Unknown Address [address] [place] [address] Organization [facility] Care Team Providers Care Public Speaking Coach Name Role Phone Abebe Ibarra Attending Unavailable [...] 153.7 cm Hilary Richardson MD Work Phone: [place] [facility] 09-05-2022 11:44-0500 Body temperature 98.1 [degF] Hilary Richardson MD Work Phone: [place] [facility] 09-05-2022 11:44-0500 Body weight 58.06 kg Hilary Richardson MD Work Phone: [place] [facility] 09-05-2022 11:44-0500 Diastolic blood pressure 64 mm[Hg] Hilary Richardson MD Work Phone: [place] [facility] 09-05-2022 11:44-0500 Heart rate 76 /min Hilary Richardson MD Work Phone: [place] [facility] 09-05-2022 11:44-0500 Systolic blood pressure 123 mm[Hg] Hilary Richardson MD Work Phone: [place] [facility] Encounters Encounter Date Encounter Type Care Provider Facility Start: 12-05-2022 Orders Only Yfn Lares Work Phone: Hematology/Oncology Procedures Date Procedure Procedure Detail Performing Clinician Start: 06-19-2018 Antibody screen Abebe Ibarra Plan of Treatment Date Care Activity Detail Author Start: 11-06-2025 DIABETES SCREEN DIABETES SCREEN [facility] Start: 08-23-2025 DIABETES SCREEN DIABETES SCREEN [facility] Start: 04-10-2025 DIABETES SCREEN DIABETES SCREEN [facility] Start: 09-14-2024 DIABETES SCREEN DIABETES SCREEN [facility] Start: 09-06-2023 End: 11-06-2023 Comprehensive metabolic 2000 panel - Serum or Plasma COMP METABOLIC PANEL Lab Routine Essential thrombocytosis (HCC) Expected: 09/06/2023, Expires: 11/06/2023 [facility] Work Phone: Immunizations Immunization Date Immunization Notes Care Provider [employer] 04-15-2011 pneumococcal polysaccharide vaccine, 23 valent Yfn Marin DO Work Phone: [place] [facility] Payers Date Payer Category Payer Medicare [id number] 2021 Unknown MMO MMO MEDICARE SUPPLEMENT [id number] 2021-Present [phone] [address] [place] [address] Indemnity [id number] 2010 Unknown [id number] 2000 Medicare [id number] 2000 Medicare MEDICARE MEDICAR E A AND B [id number] 2000-Present [phone] [address] [address] [place] [address] Medicare [id number] Unknown [id number] Unknown [id number] Social History Date Type Detail Facility Exercise [...] Syeda Song LPN documented in this encounter [facility] 09-05-2022 Note HNO ID: [id number] Author: Hilary Richardson MD Service: ? Author [...] Hilary Richardson MD cc: Maritza Vanegas DO [facility] 09-05-2022 History of Present illness Narrative Images [...] cc: Maritza Vanegas, documented in this encounter [facility] 09-05-2022 Miscellaneous Notes faxed. Malena Pryor LPN Will fax after she sees Dr Richardson on 09/05/21. Malena Pryor LPN Not read yet. Malena Pryor LPN Patient asking for recent CT results to be faxed to her PCP Dr. Cody Vanegas documented in this encounter [facility] 08-23-2022 Note HNO ID: [id number] Author: Kristi Landrum RT(R) Service: ? Author Type: Precinct Captain Type: Progress Notes Filed: 08/23/2022 2:00 PM [...] DATE: August 23, 2022 TIME: 2:00 PM [facility] 07-31-2022 Miscellaneous Notes spoke with patient. She had questions about the use of her medication due to insurance coverage. The waste water or water plant operator was denying her due to hydrea. Questions [...] her platelets down. documented in this encounter [facility] documented as of this encounter (statuses as of 03/21/2022) [facility] History of Past illness Narrative* Problem [...] of this encounter (statuses as of 07/31/2022) [facility] History of Past illness Narrative* Problem [...] of this encounter (statuses as of 09/05/2022) [facility] History of Past illness Narrative* Problem [...] of this encounter (statuses as of 09/06/2022) [facility] History of Past illness Narrative* Problem [...] of this encounter (statuses as of 09/06/2022) [facility] History of Past illness Narrative* Problem [...] of this encounter (statuses as of 12/06/2022) [facility] Diagnosis 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 [facility] Diagnosis 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 Cyst and pseudocyst of pancreas H/O Malignant Neoplasm of Skin: L cheek face: BCC Personal history of other malignant neoplasm of skin [facility] Diagnosis 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 Cyst and pseudocyst of pancreas Personal history of other malignant neoplasm of skin documented in this encounter [facility] Summary Purpose Family History No Family [...] DATE CREATED AUTHOR AUTHOR'S ORGANIZ ATION 12/21/2017 [facility] DATE CREATED AUTHOR AUTHOR'S ORGANIZ ATION 07/27/2018 [facility] [place] DATE CREATED AUTHOR AUTHOR'S ORGANIZ ATION 11/16/2019 [facility] ([place]) DATE CREATED AUTHOR AUTHOR'S ORGANIZ ATION 02/10/2020 [facility] DATE CREATED AUTHOR AUTHOR'S ORGANIZ ATION 02/11/2020 [facility] DATE CREATED AUTHOR AUTHOR'S ORGANIZ ATION 02/17/2023 [facility] Source Comments (unrecognize d section and content) In the event this informatio n is protected by the Federal Confidentiality of Alcohol and Drug Abuse Patient Records regulations: The Federal rules restrict any use of the information to criminally investigate or prosecute any alcohol or drug abuse patient.[place] [facility] the event this information is protected by the Federal Confidentiality of Alcohol and Drug Abuse Patient Records regulations: The Federal rules restrict any use of the information to criminally investigate or prosecute any alcohol or drug abuse patient.[place] [facility] the event this information is protected by the Federal Confidentiality of Alcohol and Drug Abuse Patient Records regulations: The Federal rules restrict any use of the information to criminally investigate or prosecute any alcohol or drug abuse patient.[place] [facility] the event this information is protected by the Federal Confidentiality of Alcohol and Drug Abuse Patient Records regulations: The Federal rules restrict any use of the information to criminally investigate or prosecute any alcohol or drug abuse patient.[facility] [facility] the event this information is protected by the Federal Confidentiality of Alcohol and Drug Abuse Patient Records regulations: The Federal rules restrict any use of the information to criminally investigate or prosecute any alcohol or drug abuse patient.[facility] [facility] the event this information is protected by the Federal Confidentiality of Alcohol and Drug Abuse Patient Records regulations: The Federal rules restrict any use of the information to criminally investigate or prosecute any alcohol or drug abuse patient.[facility] Care Teams (unrecognized sec tion and content) Public Speaking Coach Relationship Specialty Start Date End Date Cody Vanegas, DO [address] [place], [place] [id number] PCP - General Family Medicine 09/04/18 Public Speaking Coach Relationship Specialty Start Date End Date Cody Vanegas, [address] [place] [phone] PCP - General Family Medicine 09/04/18 Public Speaking Coach Relationship Specialty Start Date End Date Cody Vanegas, DO [address] [place] [address] PCP - General Family Medicine 09/04/18 Public Speaking Coach Relationship Specialty Start Date End Date Cody Vanegas DO [address] [place] [address] PCP - General Family Medicine [...] BE BASED ON THE PRIMARY CLINICAL RECORDS. [employer] provides no warranty or guarantee of the accuracy or completeness of information in this document.
== END | disposition home or self-care (01) ==
LOC: LABSPEC 16:49
PROVIDERS: PCP Family Medicine; Referring Provider Surgery; Visit Provider Surgery
DX: E04.2 Nontoxic multinodular goiter (principal)
CPT/HCPCS: 88108; 88305; 88313

== ENCOUNTER → 2023-09-26 | Outpatient (CLI) | payer MEDICARE, OTHER, SELFPAY ==
[2023-09-26 12:13] LABS: Absolute Lymphocyte Count 0.74 X10^3/uL (0.83-4.51); Absolute Neutrophil Count 2.1 X10^3/uL (2.0-7.7); Basophil# 0.02 X10^3/uL; Basophil% 0.6 % (0-1); Eosinophil# 0.07 X10^3/uL; Eosinophils% 2.1 % (0-5); Hematocrit 39.2 % (37-47); Hemoglobin 12.9 g/dL (12.0-15.0); Lymphocyte # 0.74 X10^3/ul (0.83-4.51); Lymphocyte % 22.3 % (19-41); Mean Corp Hgb Conc 32.9 g/dL (32-36); Mean Corpuscular Hgb 36.1 pg (27.0-32.0); Mean Corpuscular Volume 109.8 fL (81-99); Mean Platelet Vol. 9.1 fl (6.2-12.0); Monocyte# 0.41 X10^3/uL; Monocyte% 12.3 % (0-10); NRBC Flagged by Analyzer 0 % (0-5); Neutrophil # 2.07 X10^3/uL (2.7-7.7); Neutrophil % 62.4 % (47-70); Platelet Count 293 K/mm3 (150-450); RBC Distribution Width CV 14.2 % (11.6-14.6); RBC Distribution Width SD 57.8 fl (35.1-43.9); Red Blood Count 3.57 M/mm3 (4.2-5.4); White Blood Count 3.3 K/mm3 (4.4-11.0)
== END | disposition home or self-care (01) ==
PROVIDERS: PCP Family Medicine; Referring Provider Family Medicine; Visit Provider Family Medicine
DX: D47.3 Essential (hemorrhagic) thrombocythemia (principal)
CPT/HCPCS: 36415; 85025

== ENCOUNTER → 2023-10-26 | Outpatient (CLI) | payer MEDICARE, OTHER, SELFPAY ==
--- NOTE | 2023-10-26 11:39 | RAD_ITS ---
STUDY: X-RAY - PELVIS AND RIGHT HIP REASON FOR EXAM: Female, 88 years old. Pelvic pain TECHNIQUE: 3 views of the pelvis and hip. COMPARISON: None. FINDINGS: There is a non-specific bowel gas pattern. Normal visualized soft tissue structures. Diffuse osteopenia of the eklutna osseous structures There is narrowing with cortical sclerosis and osteophyte formation of the sacroiliac joint consistent with degenerative osteoarthritic changes. Normal bilateral superior and inferior pubic rami. Old healed right superior and inferior pubic rami fractures Both hip joints have been previously replaced. Components demonstrate anatomic alignment, no plain film evidence of hardware complication or failure. RAD/HIP, UNI W/ Pelvis 2-3 Views IMPRESSION: Osteopenia with old healed right superior and inferior pubic rami fractures Bilateral hip replacements demonstrate anatomic alignment, no plain film evidence of hardware complication or failure Electronically Signed: Giancarlo Blake MD at 15:16 EDT ,
[2023-10-26 12:21] LABS: Absolute Neutrophil Count 2.4 X10^3/uL (2.0-7.7); Basophil# 0.01 X10^3/uL; Basophil% 0.3 % (0-1); Eosinophil# 0.05 X10^3/uL; Eosinophils% 1.4 % (0-5); Hematocrit 40.9 % (37-47); Hemoglobin 13.4 g/dL (12.0-15.0); Lymphocyte % 19.7 % (19-41); Mean Corp Hgb Conc 32.8 g/dL (32-36); Mean Corpuscular Hgb 35.4 pg (27.0-32.0); Mean Corpuscular Volume 108.2 fL (81-99); Mean Platelet Vol. 9.1 fl (6.2-12.0); Monocyte# 0.41 X10^3/uL; Monocyte% 11.5 % (0-10); NRBC Flagged by Analyzer 0 % (0-5); Neutrophil # 2.36 X10^3/uL (2.7-7.7); Neutrophil % 66.5 % (47-70); Platelet Count 297 K/mm3 (150-450); RBC Distribution Width CV 13.5 % (11.6-14.6); RBC Distribution Width SD 53.3 fl (35.1-43.9); Red Blood Count 3.78 M/mm3 (4.2-5.4); White Blood Count 3.6 K/mm3 (4.4-11.0)
[2023-10-26 12:47] LABS: Vitamin D,25 Hydroxy 49.1 ng/mL
[2023-10-26 12:53] LABS: ALB/GLOB Ratio 1.1 RATIO (0.9-2.4); AST(SGOT) 15 U/L (15-37); Alanine Aminotransfer ALT/SGPT 24 U/L (13-56); Albumin, Serum 3.4 g/dL (3.2-5.0); Alkaline Phosphatase 99 U/L (45-117); Anion Gap 3 (5-15); BUN 13 mg/dL (7-18); BUN/Creat Ratio 25.5 RATIO (10-20); Calcium,Total 9.2 mg/dL (8.5-10.1); Chloride 107 mmol/L (98-107); Creatinine, Serum 0.51 mg/dL (0.55-1.02); EST Glomerular Filtration Rate 121 mL/min (>60); Est Glom Filt Rate - Afr Amer 147 mL/min (>60); Globulin 3.1 g/dL (2.2-4.2); Glucose 74 mg/dL (74-106); Potassium 3.9 mmol/L (3.5-5.1); Protein, Total 6.5 g/dL (6.4-8.2); Sodium Level 137 mmol/L (136-145); Thyroid Stim Hormone (TSH) 1.96 uIU/mL (0.358-3.74)
[2023-10-26 15:40] LABS: Hemoglobin A1c 5.1 % (3.8-5.6)
== END | disposition home or self-care (01) ==
PROVIDERS: PCP Family Medicine; Referring Provider Family Medicine; Visit Provider Family Medicine
DX: R53.83 Other fatigue (principal); D47.3 Essential (hemorrhagic) thrombocythemia; E04.1 Nontoxic single thyroid nodule; R73.01 Impaired fasting glucose; E55.9 Vitamin D deficiency, unspecified; Z96.641 Presence of right artificial hip joint
CPT/HCPCS: 36415; 73502; 80053; 82306; 83036; 84443; 85025

== ENCOUNTER → 2023-11-30 | Outpatient (CLI) | payer MEDICARE, OTHER, SELFPAY ==
[2023-11-30 17:50] LABS: Absolute Lymphocyte Count 1.03 X10^3/uL (0.83-4.51); Absolute Neutrophil Count 3.6 X10^3/uL (2.0-7.7); Basophil# 0.03 X10^3/uL; Basophil% 0.6 % (0-1); Eosinophil# 0.08 X10^3/uL; Eosinophils% 1.6 % (0-5); Hematocrit 40.5 % (37-47); Lymphocyte # 1.03 X10^3/ul (0.83-4.51); Mean Corp Hgb Conc 32.1 g/dL (32-36); Mean Corpuscular Hgb 35.2 pg (27.0-32.0); Mean Corpuscular Volume 109.8 fL (81-99); Mean Platelet Vol. 9.2 fl (6.2-12.0); Monocyte# 0.44 X10^3/uL; Monocyte% 8.5 % (0-10); NRBC Flagged by Analyzer 0 % (0-5); Neutrophil # 3.55 X10^3/uL (2.7-7.7); Neutrophil % 68.7 % (47-70); Platelet Count 308 K/mm3 (150-450); RBC Distribution Width CV 13.4 % (11.6-14.6); Red Blood Count 3.69 M/mm3 (4.2-5.4); White Blood Count 5.2 K/mm3 (4.4-11.0)
== END | disposition home or self-care (01) ==
LOC: BFHLAB 14:22
PROVIDERS: PCP Family Medicine; Referring Provider Family Medicine; Visit Provider Family Medicine
DX: D47.3 Essential (hemorrhagic) thrombocythemia (principal)
CPT/HCPCS: 36415; 85025

== ENCOUNTER → 2023-12-26 | Outpatient (CLI) | payer MEDICARE, OTHER, SELFPAY ==
[2023-12-26 15:15] LABS: Absolute Lymphocyte Count 0.92 X10^3/uL (0.83-4.51); Absolute Neutrophil Count 2.9 X10^3/uL (2.0-7.7); Basophil# 0.03 X10^3/uL; Basophil% 0.7 % (0-1); Eosinophil# 0.07 X10^3/uL; Eosinophils% 1.6 % (0-5); Hematocrit 40.6 % (37-47); Hemoglobin 13.1 g/dL (12.0-15.0); Lymphocyte # 0.92 X10^3/ul (0.83-4.51); Lymphocyte % 21.1 % (19-41); Mean Corp Hgb Conc 32.3 g/dL (32-36); Mean Corpuscular Hgb 34.9 pg (27.0-32.0); Mean Corpuscular Volume 108.3 fL (81-99); Mean Platelet Vol. 9.3 fl (6.2-12.0); Monocyte# 0.47 X10^3/uL; Monocyte% 10.8 % (0-10); NRBC Flagged by Analyzer 0 % (0-5); Neutrophil # 2.86 X10^3/uL (2.7-7.7); Neutrophil % 65.6 % (47-70); Platelet Count 314 K/mm3 (150-450); RBC Distribution Width CV 13.4 % (11.6-14.6); RBC Distribution Width SD 53.2 fl (35.1-43.9); Red Blood Count 3.75 M/mm3 (4.2-5.4); White Blood Count 4.4 K/mm3 (4.4-11.0)
== END | disposition home or self-care (01) ==
LOC: BFHLAB 13:37
PROVIDERS: PCP Family Medicine; Referring Provider Family Medicine; Visit Provider Family Medicine
DX: D47.3 Essential (hemorrhagic) thrombocythemia (principal)
CPT/HCPCS: 36415; 85025

== ENCOUNTER → 2024-01-24 | Outpatient (CLI) | payer MEDICARE, OTHER, SELFPAY ==
[2024-01-24 17:45] LABS: Absolute Lymphocyte Count 1.12 X10^3/uL (0.83-4.51); Absolute Neutrophil Count 3.4 X10^3/uL (2.0-7.7); Basophil# 0.03 X10^3/uL; Basophil% 0.6 % (0-1); Eosinophil# 0.05 X10^3/uL; Hematocrit 42.6 % (37-47); Lymphocyte # 1.12 X10^3/ul (0.83-4.51); Lymphocyte % 21.5 % (19-41); Mean Corp Hgb Conc 32.9 g/dL (32-36); Mean Corpuscular Hgb 34.5 pg (27.0-32.0); Mean Corpuscular Volume 104.9 fL (81-99); Mean Platelet Vol. 9.1 fl (6.2-12.0); Monocyte# 0.58 X10^3/uL; Monocyte% 11.1 % (0-10); NRBC Flagged by Analyzer 0 % (0-5); Neutrophil # 3.42 X10^3/uL (2.7-7.7); Neutrophil % 65.6 % (47-70); Platelet Count 354 K/mm3 (150-450); RBC Distribution Width CV 13.4 % (11.6-14.6); RBC Distribution Width SD 51.2 fl (35.1-43.9); Red Blood Count 4.06 M/mm3 (4.2-5.4); White Blood Count 5.2 K/mm3 (4.4-11.0)
== END | disposition home or self-care (01) ==
LOC: MTLAB 13:52
PROVIDERS: PCP Family Medicine; Referring Provider Family Medicine; Visit Provider Family Medicine
DX: D47.3 Essential (hemorrhagic) thrombocythemia (principal)
CPT/HCPCS: 36415; 85025; 85049

== ENCOUNTER → 2024-02-28 | Outpatient (CLI) | payer MEDICARE, OTHER, SELFPAY ==
[2024-02-28 15:17] LABS: Absolute Lymphocyte Count 0.99 X10^3/uL (0.83-4.51); Absolute Neutrophil Count 2.5 X10^3/uL (2.0-7.7); Basophil# 0.03 X10^3/uL; Basophil% 0.7 % (0-1); Eosinophil# 0.08 X10^3/uL; Eosinophils% 1.9 % (0-5); Hematocrit 42.6 % (37-47); Hemoglobin 13.7 g/dL (12.0-15.0); Lymphocyte # 0.99 X10^3/ul (0.83-4.51); Lymphocyte % 23.7 % (19-41); Mean Corp Hgb Conc 32.2 g/dL (32-36); Mean Corpuscular Hgb 34.2 pg (27.0-32.0); Mean Corpuscular Volume 106.2 fL (81-99); Mean Platelet Vol. 9.4 fl (6.2-12.0); Monocyte# 0.54 X10^3/uL; Monocyte% 12.9 % (0-10); NRBC Flagged by Analyzer 0 % (0-5); Neutrophil # 2.53 X10^3/uL (2.7-7.7); Neutrophil % 60.6 % (47-70); Platelet Count 350 K/mm3 (150-450); Red Blood Count 4.01 M/mm3 (4.2-5.4); White Blood Count 4.2 K/mm3 (4.4-11.0)
== END | disposition home or self-care (01) ==
LOC: BFHLAB 13:42
PROVIDERS: PCP Family Medicine; Referring Provider Family Medicine; Visit Provider Family Medicine
DX: D64.9 Anemia, unspecified (principal)
CPT/HCPCS: 36415; 85025

== ENCOUNTER → 2024-03-26 | Outpatient (CLI) | payer MEDICARE, OTHER, SELFPAY ==
[2024-03-26 12:17] LABS: Absolute Lymphocyte Count 0.87 X10^3/uL (0.83-4.51); Absolute Neutrophil Count 2.5 X10^3/uL (2.0-7.7); Basophil# 0.02 X10^3/uL; Basophil% 0.5 % (0-1); Eosinophil# 0.07 X10^3/uL; Eosinophils% 1.8 % (0-5); Hematocrit 41.3 % (37-47); Hemoglobin 13.5 g/dL (12.0-15.0); Lymphocyte # 0.87 X10^3/ul (0.83-4.51); Lymphocyte % 22.4 % (19-41); Mean Corp Hgb Conc 32.7 g/dL (32-36); Mean Corpuscular Hgb 34.4 pg (27.0-32.0); Mean Corpuscular Volume 105.4 fL (81-99); Monocyte# 0.45 X10^3/uL; Monocyte% 11.6 % (0-10); NRBC Flagged by Analyzer 0 % (0-5); Neutrophil # 2.46 X10^3/uL (2.7-7.7); Neutrophil % 63.4 % (47-70); Platelet Count 353 K/mm3 (150-450); RBC Distribution Width SD 54.4 fl (35.1-43.9); Red Blood Count 3.92 M/mm3 (4.2-5.4); White Blood Count 3.9 K/mm3 (4.4-11.0)
== END | disposition home or self-care (01) ==
LOC: BFHLAB 10:48
PROVIDERS: PCP Family Medicine; Referring Provider Family Medicine; Visit Provider Family Medicine
DX: D47.3 Essential (hemorrhagic) thrombocythemia (principal)
CPT/HCPCS: 36415; 85025

== ENCOUNTER → 2024-04-09 | Outpatient (CLI) | payer MEDICARE, OTHER, SELFPAY ==
--- NOTE | 2024-04-09 13:54 | CT_ITS ---
STUDY: CT ABDOMEN AND PELVIS WITHOUT CONTRAST REASON FOR EXAM: Female, 88 years old. Abdominal pain and abdominal bloating. RADIATION DOSAGE (If Supplied By Facility): CTDIvol = ( 10.38 ) mGy, DLP = ( 653.27 ) mGycm TECHNIQUE: Transaxial images were obtained from the dome of the diaphragm to the symphysis pubis without oral contrast, and without intravenous contrast. Sagittal and coronal images were reconstructed. Individualized dose optimization techniques were used for this CT. COMPARISON: Comparison is made with prior study dated December 02, 2022 and November 27, 2019. FINDINGS: The visualized lung bases are unremarkable. Small to moderate-sized pericardial effusion. No visualized coronary calcifications on this examination. Normal liver. The patient status post cholecystectomy. There are multiple benign calcified granulomata of the spleen. Normal pancreas. Persistent 10.8 cm x 8.9 cm x 8.7 cm cystic mass in the region of the head of the pancreas and extending inferiorly into the right mid abdomen. Punctate calcifications are seen along its inferior margin. A large pseudocyst should be ruled out. Normal bilateral adrenal glands. Normal right kidney. Normal left kidney. The stomach is distended and filled with residual food particles or oral contrast. Normal small intestine. Normal colon. The appendix is visualized and appears normal. There is diffuse atherosclerotic calcification of the abdominal aorta, without a demonstrated aneurysm. Normal inferior vena cava. Normal retroperitoneum. Limited visualization of the pelvic structures due to beam hardening artifact caused by bilateral hip replacement. Normal abdominal wall. There are diffuse degenerative changes of the visualized lumbar spine. Levoscoliosis. CT/Abdomen/Pel W ORAL Cont Only IMPRESSION: Pericardial effusion. Stable cystic lesion in the region of the pancreas and right mid abdomen as described and this may represent a large pseudocyst. Fecal material is seen in the colon. Distention of the stomach. Electronically Signed: Avelino Mclain MD at 14:49 EDT ,
== END | disposition home or self-care (01) ==
LOC: CT 13:52
PROVIDERS: PCP Family Medicine; Referring Provider Internal Medicine Gastroenterology; Visit Provider Internal Medicine Gastroenterology
DX: R10.9 Unspecified abdominal pain (principal); K25.4 Chronic or unspecified gastric ulcer with hemorrhage
CPT/HCPCS: 74176

== ENCOUNTER → 2024-05-01 | Outpatient (CLI) | payer MEDICARE, OTHER, SELFPAY ==
[2024-05-01 12:29] LABS: Absolute Lymphocyte Count 0.78 X10^3/uL (0.83-4.51); Absolute Neutrophil Count 2.4 X10^3/uL (2.0-7.7); Basophil# 0.03 X10^3/uL; Basophil% 0.8 % (0-1); Eosinophil# 0.05 X10^3/uL; Eosinophils% 1.3 % (0-5); Hematocrit 41.8 % (37-47); Hemoglobin 13.7 g/dL (12.0-15.0); Lymphocyte # 0.78 X10^3/ul (0.83-4.51); Lymphocyte % 20.9 % (19-41); Mean Corp Hgb Conc 32.8 g/dL (32-36); Mean Corpuscular Hgb 34.7 pg (27.0-32.0); Mean Corpuscular Volume 105.8 fL (81-99); Mean Platelet Vol. 9.5 fl (6.2-12.0); Monocyte# 0.42 X10^3/uL; Monocyte% 11.3 % (0-10); NRBC Flagged by Analyzer 0 % (0-5); Neutrophil # 2.44 X10^3/uL (2.7-7.7); Neutrophil % 65.4 % (47-70); Platelet Count 358 K/mm3 (150-450); RBC Distribution Width CV 13.8 % (11.6-14.6); RBC Distribution Width SD 54.1 fl (35.1-43.9); Red Blood Count 3.95 M/mm3 (4.2-5.4); White Blood Count 3.7 K/mm3 (4.4-11.0)
[2024-05-01 12:42] LABS: Vitamin B12 1307 pg/mL (211-911)
[2024-05-01 12:49] LABS: ALB/GLOB Ratio 1.2 RATIO (0.9-2.4); AST(SGOT) 15 U/L (15-37); Alanine Aminotransfer ALT/SGPT 23 U/L (13-56); Albumin, Serum 3.4 g/dL (3.2-5.0); Alkaline Phosphatase 108 U/L (45-117); Anion Gap 5 (5-15); BUN 20 mg/dL (7-18); BUN/Creat Ratio 35.9 RATIO (10-20); Calcium,Total 8.9 mg/dL (8.5-10.1); Chloride 106 mmol/L (98-107); Creatinine, Serum 0.56 mg/dL (0.55-1.02); EST Glomerular Filtration Rate 109 mL/min (>60); Est Glom Filt Rate - Afr Amer 132 mL/min (>60); Globulin 2.9 g/dL (2.2-4.2); Glucose 87 mg/dL (74-106); Potassium 3.8 mmol/L (3.5-5.1); Protein, Total 6.3 g/dL (6.4-8.2); Sodium Level 138 mmol/L (136-145)
== END | disposition home or self-care (01) ==
LOC: BFHLAB 10:53
PROVIDERS: PCP Family Medicine; Referring Provider Family Medicine; Visit Provider Family Medicine
DX: G62.9 Polyneuropathy, unspecified (principal); D47.3 Essential (hemorrhagic) thrombocythemia; E04.1 Nontoxic single thyroid nodule
CPT/HCPCS: 36415; 80053; 82607; 84443; 85025

== ENCOUNTER → 2024-05-08 | Outpatient (CLI) | payer MEDICARE, OTHER, SELFPAY | END | disposition home or self-care (01) | PROVIDERS: PCP Family Medicine; Referring Provider Family Medicine; Visit Provider Family Medicine | DX: M81.0 Age-related osteoporosis without current pathological fracture (principal) | CPT/HCPCS: 77080 ==

== ENCOUNTER → 2024-05-27 | Outpatient (CLI) | payer MEDICARE, OTHER, SELFPAY ==
--- NOTE | 2024-05-27 10:51 | NEURO ---
NCS and/or EMG Patient Report Ordering Doctor: Nathan Vanegas DATE OF SERVICE: 05/27/24 Clinical Summary: 88 year old female patient with symptoms of tightness/discomfort in her legs from the knee down to her feet. Nerve Conduction Studies Summary: Nerve conduction studies of the right lower extremity were within normal ranges for the patient's age. Needle Examination Summary: Needle examination of select muscles of the right lower extremity was normal. Impression: This is a normal electrodiagnostic study of the right lower extremity. There is no electrodiagnostic evidence of a large-fiber peripheral neuropathy, lumbosacral radiculopathy, or peroneal mononeuropathy in the right lower extremity. Multi Select Codes Neurology Neurology Interp Codes: 80455-79 Musc test done w/n test comp (interp) (1) and 12507-57 Nrv cndj tst 3-4 studies (interp)
[2024-05-27 11:52] LABS: Basophil# 0.03 X10^3/uL; Basophil% 0.6 % (0-1); Eosinophil# 0.08 X10^3/uL; Eosinophils% 1.7 % (0-5); Hematocrit 41.2 % (37-47); Hemoglobin 13.6 g/dL (12.0-15.0); Lymphocyte % 21.5 % (19-41); Mean Corpuscular Hgb 34.4 pg (27.0-32.0); Mean Corpuscular Volume 104.3 fL (81-99); Mean Platelet Vol. 9.1 fl (6.2-12.0); Monocyte# 0.58 X10^3/uL; Monocyte% 12.4 % (0-10); NRBC Flagged by Analyzer 0 % (0-5); Neutrophil # 2.96 X10^3/uL (2.7-7.7); Neutrophil % 63.6 % (47-70); Platelet Count 355 K/mm3 (150-450); RBC Distribution Width CV 13.5 % (11.6-14.6); RBC Distribution Width SD 51.7 fl (35.1-43.9); Red Blood Count 3.95 M/mm3 (4.2-5.4); White Blood Count 4.7 K/mm3 (4.4-11.0)
== END | disposition home or self-care (01) ==
PROVIDERS: PCP Family Medicine; Referring Provider Family Medicine; Visit Provider Family Medicine
DX: D47.3 Essential (hemorrhagic) thrombocythemia (principal); G62.9 Polyneuropathy, unspecified; G57.93 Unspecified mononeuropathy of bilateral lower limbs
CPT/HCPCS: 36415; 85025; 95886; 95908

== ENCOUNTER → 2024-06-26 | Outpatient (CLI) | payer MEDICARE, OTHER, SELFPAY ==
[2024-06-26 12:10] LABS: Absolute Lymphocyte Count 0.82 X10^3/uL (0.83-4.51); Absolute Neutrophil Count 2.4 X10^3/uL (2.0-7.7); Basophil# 0.03 X10^3/uL; Basophil% 0.8 % (0-1); Eosinophil# 0.05 X10^3/uL; Eosinophils% 1.4 % (0-5); Hematocrit 41.5 % (37-47); Hemoglobin 13.1 g/dL (12.0-15.0); Lymphocyte # 0.82 X10^3/ul (0.83-4.51); Lymphocyte % 22.2 % (19-41); Mean Corp Hgb Conc 31.6 g/dL (32-36); Mean Corpuscular Hgb 33.6 pg (27.0-32.0); Mean Corpuscular Volume 106.4 fL (81-99); Mean Platelet Vol. 9.2 fl (6.2-12.0); Monocyte# 0.34 X10^3/uL; Monocyte% 9.2 % (0-10); NRBC Flagged by Analyzer 0 % (0-5); Neutrophil # 2.41 X10^3/uL (2.7-7.7); Neutrophil % 65.3 % (47-70); Platelet Count 330 K/mm3 (150-450); RBC Distribution Width SD 54.3 fl (35.1-43.9); White Blood Count 3.7 K/mm3 (4.4-11.0)
== END | disposition home or self-care (01) ==
LOC: BFHLAB 11:06
PROVIDERS: PCP Family Medicine; Referring Provider Family Medicine; Visit Provider Family Medicine
DX: D47.3 Essential (hemorrhagic) thrombocythemia (principal)
CPT/HCPCS: 36415; 85025

== ENCOUNTER → 2024-08-07 | Outpatient (CLI) | payer MEDICARE, OTHER, SELFPAY ==
[2024-08-07 12:22] LABS: Absolute Lymphocyte Count 0.93 X10^3/uL (0.83-4.51); Absolute Neutrophil Count 3.2 X10^3/uL (2.0-7.7); Basophil# 0.02 X10^3/uL; Basophil% 0.4 % (0-1); Eosinophil# 0.05 X10^3/uL; Eosinophils% 1.1 % (0-5); Hematocrit 41.3 % (37-47); Hemoglobin 13.5 g/dL (12.0-15.0); Lymphocyte # 0.93 X10^3/ul (0.83-4.51); Lymphocyte % 19.6 % (19-41); Mean Corp Hgb Conc 32.7 g/dL (32-36); Mean Corpuscular Hgb 33.8 pg (27.0-32.0); Mean Corpuscular Volume 103.5 fL (81-99); Mean Platelet Vol. 9.5 fl (6.2-12.0); Monocyte# 0.49 X10^3/uL; Monocyte% 10.3 % (0-10); NRBC Flagged by Analyzer 0 % (0-5); Neutrophil # 3.24 X10^3/uL (2.7-7.7); Neutrophil % 68.4 % (47-70); Platelet Count 379 K/mm3 (150-450); RBC Distribution Width CV 13.9 % (11.6-14.6); RBC Distribution Width SD 53.1 fl (35.1-43.9); Red Blood Count 3.99 M/mm3 (4.2-5.4); White Blood Count 4.7 K/mm3 (4.4-11.0)
[2024-08-07 12:51] LABS: ALB/GLOB Ratio 1.1 RATIO (0.9-2.4); AST(SGOT) 16 U/L (15-37); Alanine Aminotransfer ALT/SGPT 18 U/L (13-56); Albumin, Serum 3.3 g/dL (3.2-5.0); Alkaline Phosphatase 108 U/L (45-117); Anion Gap 6 (5-15); BUN 20 mg/dL (7-18); BUN/Creat Ratio 40.2 RATIO (10-20); Calcium,Total 9.1 mg/dL (8.5-10.1); Chloride 106 mmol/L (98-107); EST Glomerular Filtration Rate 124 mL/min (>60); Est Glom Filt Rate - Afr Amer 151 mL/min (>60); Ferritin 81 ng/mL (8-252); Globulin 3.1 g/dL (2.2-4.2); Glucose 92 mg/dL (74-106); Iron 102 ug/dL (50-170); Protein, Total 6.4 g/dL (6.4-8.2); Sodium Level 137 mmol/L (136-145)
== END | disposition home or self-care (01) ==
LOC: BFHLAB 10:39
PROVIDERS: PCP Family Medicine; Visit Provider Family Medicine
DX: D47.3 Essential (hemorrhagic) thrombocythemia (principal); E61.1 Iron deficiency; E04.1 Nontoxic single thyroid nodule; Z51.81 Encounter for therapeutic drug level monitoring
CPT/HCPCS: 36415; 80053; 82728; 83540; 84443; 85025

== ENCOUNTER → 2024-08-20 | Outpatient (CLI) | payer MEDICARE, OTHER, SELFPAY ==
--- NOTE | 2024-08-20 12:44 | US_ITS ---
PROCEDURE: ULTRASOUND THYROID REASON FOR EXAM: FOLLOW-UP NODULES TECHNIQUE: REAL-TIME GRAYSCALE AND COLOR-FLOW IMAGING WAS PERFORMED ALONG WITH ROUTINE IMAGE DOCUMENTATION. COMPARISON: PRIOR IMAGES FROM 08/29/2023 NOT AVAILABLE FOR COMPARISON. FINDINGS: Right thyroid lobe measures 4.3 x 1.2 x 2.5 cm. Left thyroid lobe measures 3.4 x 1.9 x 2.3 cm. Isthmus thickness is0.3 cm. Background Echotexture: Heterogeneous. Thyroid Nodules: Bilateral. RIGHT NODULE: Mid superior pole, predominantly solid, 0.7 x 0.6 x 0.5 cm, hypoechoic, well-circumscribed, wider than tall, no calcifications, TR 4. NODULE: Lateral superior pole, cystic, 0.5 x 0.4 x 0.3 cm, anechoic, well- circumscribed, TR 1. NODULE: Lateral midpole, cystic, 0.9 x 0.8 x 0.6 cm, anechoic, well- circumscribed, TR 1. LEFT NODULE: Lateral, solid, lobulated, 1.5 x 1.9 x 1.5 cm, hypoechoic, well- circumscribed, peripheral vascularity, TR 4. US/Thyroid IMPRESSION: 1. A TR 4 category predominantly solid micronodule in the right thyroid lobe. No FNA warranted. 2. 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 3. A TR 4 category solid nodule in the left thyroid lobe, smaller than the doc umented measurements on the previous study. No FNA warranted. 4. Follow-up ultrasound recommended in 12 months. Reading Location: [facility]
== END | disposition home or self-care (01) ==
LOC: US 12:43
PROVIDERS: PCP Family Medicine; Referring Provider Surgery; Visit Provider Surgery
DX: E04.2 Nontoxic multinodular goiter (principal); E04.1 Nontoxic single thyroid nodule
CPT/HCPCS: 76536

== ENCOUNTER 2024-09-05 07:14 | Emergency (ER) | payer MEDICARE, OTHER, SELFPAY ==
[2024-09-05] VITALS (9 sets, daily range): BP systolic 82–186; BP diastolic 57–78; PULSE 64–87; RESP 15–19; TEMP 36.6–36.7; O2SAT 97–100; BMI 23.6
--- NOTE | 2024-09-05 07:38 | EX.ED.DYSGE1 ---
HPI History of Present Illness Chief Complaint: Chest Pain Informant: patient and family Narrative Narrative: 88-year-old female presenting to the emergency room with a chief complaint of upper abdominal lower chest tightness. Patient states that for 9 months she has had paresthesias from the lower chest down to her toes. She states nobody has been able to figure out what is causing it. She has intermittently had some tightness of her upper abdomen lower chest. She states that a couple weeks ago she had fluid drained from a pancreatic cyst at [facility] As an outpatient. She states she went to bed feeling her normal self. When she woke during the night she had this tightness in her upper abdomen. She denies fever nausea vomiting cough. She notes she has been stooling normally. She notes her pants are not fitting any different today. She has had prior cholecystectomy. She does not know why she has had a pancreatic cyst. She has a history of upper GI bleeding. [facility] Medical History Pseudocyst of pancreas Depression Fall Left hip pain Right hip pain Right knee pain Bilateral shoulder pain Pericardial effusion Nonrheumatic tricuspid valve regurgitation Hemorrhoids Idiopathic thrombocythemia Vertigo Osteoporosis Osteoarthritis Hyperlipidemia COPD (chronic obstructive pulmonary disease) Macular degeneration GERD (gastroesophageal reflux disease) Secondary pulmonary arterial hypertension Nodule of left lung Pancreatic cyst Goiter Vitamin D deficiency Home Medications ?Medication ?Instructions ?Recorded ?Last Taken ?Type albuterol sulfate 90 mcg/actuation 1 puff inhalation Q6H PRN Sob &/Or 02/26/18 Unknown History aerosol inhaler (Ventolin HFA) Wheezing calcium 250 mg (phosphate)-vit D3 1 tab PO DAILY 02/26/18 12/07/22 History 12.5 mcg (500 unit) chewable tablet (Citracal-D3 Gummies) docusate sodium 100 mg capsule 100 mg PO DAILY 02/26/18 12/07/22 History (Stool Softener) fluticasone propionate 50 1 spray intranasal DAILY PRN 02/26/18 12/07/22 History mcg/actuation nasal Allergies spray,suspension (Flonase Allergy Relief) hydroxyurea 500 mg capsule 500 mg PO DAILY 09/14/22 12/07/22 History acetaminophen 500 mg tablet 1,000 mg (2 x 500 mg) PO Q8 6 days 12/09/22 Unknown Rx #36 tabs meclizine 25 mg chewable tablet 25 mg PO DAILY PRN PRN dizziness 01/07/23 Unknown History (Antivert) cetirizine 10 mg tablet (Zyrtec) 10 mg PO DAILY PRN ALLERGIES 07/20/23 Unknown History cyanocobalamin (vitamin B-12) 1,000 mcg PO DAILY 07/20/23 Unknown History 1,000 mcg tablet inulin-chromium picolinate 2 3 tab PO DAILY 07/20/23 Unknown History gram-100 mcg chewable tablet (Fiber Select Gummies) guaifenesin 600 mg tablet, 600 mg PO Q12H Cough 04/01/24 Unknown History extended release 12 hr (Mucinex) zoledronic acid 5 mg/100 mL in 1 ea .Route .Q2YEAR 04/01/24 Unknown History mannitol 5 %-water intravenous piggybck (Reclast) Allergy/AdvReac Type Severity Reaction Status Date / Time amoxicillin AdvReac Upset Verified 09/05/24 07:23 Stomach atorvastatin (From Lipitor) AdvReac myalgias Verified 09/05/24 07:23 ciprofloxacin (From Cipro) AdvReac Itching Verified 09/05/24 07:23 clarithromycin (From Biaxin) AdvReac Vomiting Verified 09/05/24 07:23 thiopental (From Pentothal) AdvReac Nausea Verified 09/05/24 07:23 Family History Brother CAD (coronary artery disease) Diabetes Father Diabetes Myocardial infarction Surgical History History of appendectomy H/O total knee replacement (06/2018) History of right and left heart catheterization (09/22/13) S/P tendon repair History of carpal tunnel release Hx of cholecystectomy H/O shoulder surgery History of right hip replacement H/O colectomy History of total left hip replacement Social History Smoking Status: Never smoker alcohol intake: never ROS ROS ED Constitutional Constitutional ED: Denies chills or weight loss Eyes Eyes: Denies change in vision or diplopia ENT ENT ED: Denies ear pain, rhinorrhea or sore throat Cardiovascular Cardiovascular: Reports other Details: Lower chest tightness ; Denies chest pain, orthopnea, palpitations or racing heartbeat Respiratory/Chest Respiratory/Chest: Denies cough, dyspnea or orthopnea Gastrointestinal Gastrointestinal: Reports other Details: Upper abdominal tightness ; Denies abdominal pain, diarrhea, nausea or vomiting Genitourinary Genitourinary ED: Denies dysuria, hematuria or urinary frequency Musculoskeletal Musculoskeletal: Denies arthralgias or myalgias Integumentary Denies abscess or rash Neurologic Neurologic: Reports paresthesias; Denies headache(s) or weakness Psychiatric Psychiatric: Denies anxiety, depression, suicidal ideation or suicidal thoughts Endocrine Endocrinology: Denies polydipsia, polyphagia or polyuria Allergic/Immunologic Allergic/Immunologic ED: Denies mouth swelling, tongue swelling or urticaria EXAM Physical Exam Const Vital Signs: 09/05/24 07:15 09/05/24 08:14 09/05/24 09:14 Temperature 98.1 F Temperature Source Temporal Pulse Rate 87 65 64 Respiratory Rate 16 19 H 19 H Blood Pressure 186/75 H 134/66 H 146/67 H Blood Pressure Mean 112 88 93 Pulse Ox 99 99 99 Oxygen Delivery Method Room Air Room Air Room Air 09/05/24 10:00 09/05/24 11:00 09/05/24 12:56 Temperature Temperature Source Pulse Rate 72 68 75 Respiratory Rate 15 16 16 Blood Pressure 139/67 H 136/61 H 82/57 L Blood Pressure Mean 91 86 65 Pulse Ox 100 99 97 Oxygen Delivery Method Room Air Room Air Room Air 09/05/24 13:15 09/05/24 14:00 Temperature Temperature Source Pulse Rate 82 71 Respiratory Rate 16 16 Blood Pressure 100/69 127/59 H Blood Pressure Mean 79 81 Pulse Ox 98 97 Oxygen Delivery Method Room Air Room Air Positive well nourished and well developed General Appearance ED: well developed HEENT Reports normocephalic, head/scalp atraumatic and moist mucous membranes Eyes PERRL and EOMs intact bilaterally Neck no lymphadenopathy, supple and no JVD Resp normal respiratory effort and clear to auscultation bilaterally Cardio regular rate, regular rhythm and no murmurs GI GI Narrative: Mild tenderness to palpation along the upper abdomen and right side of the abdomen. No guarding no rebound. Inspection: Negative for abdominal distention Auscultation: normoactive bowel sounds Palpation: soft Back/Spine no CVA tenderness and normal ROM Extremity normal to inspection General Extremety ED: Negative for edema General Extremity: Negative for edema Neuro oriented x3 and CN's II-XII intact bilaterally Sensorium / Orientation: alert Motor Exam: strength 5/5 throughout Psych mental status grossly normal Mood & Affect: Negative for depressed or tearful Skin no rashes or lesions noted and no wounds MDM MDM MDM Narrative Medical decision making narrative: Differential diagnosis includes pancreatic pseudocyst bowel obstruction gastric outlet obstruction pancreatitis colitis diverticulitis abscess mesenteric ischemia Patient's white count is 3.8 hemoglobin of 14 the count 333. Patient noted to have normal anion gap BUN of 15 creatinine 0.59 troponin is normal at 6 EKG is nonischemic normal LFTs normal lipase. CT then pelvis with IV contrast was obtained. Please see radiologist read for full details. Essentially there is redemonstration of the pancreatic pseudocyst. So she had this drained at the end of July it appears to reaccumulated. However I do not see that is causing obstruction. It does push on the vena cava but her legs are not edematous. Patient's abdominal exam continues to be soft. She tells me that it feels like would. Unfortunately I do not see any change in the time that she has been here. I spoke with the patient and her daughter several times. I answered multiple questions. The daughter is been googling symptoms and diagnoses and ask good questions. She is asked very specifically whether or not this could be intercostal neuralgia or vagal nerve syndrome. I spoke with Dr. Lairos and we reviewed her complaints. I am not seeing anything emergent. I do not feel this is mesenteric ischemia. Her biggest complaint is this bandlike sensation of the upper abdomen but she does not have excessive gas. I do not see distention of the stomach. She is having regular stools. Patient began to feel nauseated. Nursing informed me of this and I ordered Zofran. The patient had a vasovagal syncope while throwing up. She recovered quickly from this. During the event she had bradycardia down to the 40s with a blood pressure of 40/20. She eventually recovered to the point where she could drink Coke and have some saltines. I once again spoke with the patient and her daughter. We talked about different follow-ups. For the 9 months of these paresthesias from the lower rib cage inferiorly she may wish to see neurology. I do not think she needs any emergent MRI of the spine but that is something that we did talk about. I think that she would benefit from a hepatobiliary surgical consult. They have inform me that they do not wish to see the surgeon that drained her [facility] again. They would most likely need to be seen at [facility] or [facility]. But I do not feel this needs to be done at a emergent basis. At this point I believe the patient can be discharged home. Given that this has been months of symptoms and only thing different today is that her symptomology occurred before she ate. Not sure what to make out of the difference of the timing of her symptoms but at this point she appears stable. History & Record Review Discussion w/independent historian: Patient Lab Data Attestation: I reviewed the patient's lab results. Labs: Laboratory Results - last 24 hr 09/05/24 07:50 WBC 3.8 L RBC 4.09 L Hgb 14.0 Hct 41.1 MCV 100.5 H MCH 34.2 H MCHC 34.1 RDW Std Deviation 51.1 H RDW Coeff of Cyril 14.0 Plt Count 333 MPV 9.1 Immature Gran % (Auto) 0.300 Neut % (Auto) 61.6 Lymph % (Auto) 24.3 Nye % (Auto) 10.6 H Eos % (Auto) 2.4 Baso % (Auto) 0.8 Absolute Neuts (auto) 2.3 Absolute Lymphs (auto) 0.92 Nucleated RBC % 0 Sodium 136 Potassium 4.0 Chloride 104 Carbon Dioxide 20.8 L Anion Gap 12 BUN 15 Creatinine 0.59 L Estim Creat Clear Calc 37.82 L Est GFR (MDRD) Non-Af 87 BUN/Creatinine Ratio 24.8 H Glucose 99 Calcium 9.6 Total Bilirubin 0.44 Direct Bilirubin 0.21 AST 19 ALT 17 Alkaline Phosphatase 111 H Troponin T High Sens 6 Total Protein 6.4 Albumin 4.0 Globulin 2.4 Lipase 36 Radiography Diagnostic Testing: Clinical Impression(s) from Imaging Studies Abdomen/Pelvis CT 09/05/24 09:06 IMPRESSION: Stable examination with a dominant cystic mass in the right midabdomen as described. Small pericardial effusion. One or more dose reduction techniques were used (e.g., Automated exposure control, adjustment of the mA and/or kV according to patient size, use of iterative reconstruction technique). Reading Location: [facility] EKG Initial EKG: Attestation: I personally reviewed and interpreted this EKG as follows: Comments: Normal sinus rhythm ventricular rate of 77 bpm no significant change from prior Management Discussion w/another healthcare provider: [facility] (Dr Larios) Discharge Plan Triage Chief Complaint: Chest Pain ED Provider: Jamie Sanchez Dx/Rx/DC Orders Clinical Impression: Pancreatic cyst, Abdominal pain, Paresthesias, Syncope Prescriptions: No Action calcium phosphate-vitamin D3 [Citracal-D3 Gummies] 250 mg calcium- 500 unit tablet,chewable 1 tab PO DAILY fluticasone propionate [Flonase Allergy Relief] 50 mcg/actuation spray,suspension 1 spray INTRANASAL DAILY PRN (Reason: Allergies) docusate sodium [Stool Softener] 100 mg capsule 100 mg PO DAILY albuterol sulfate [Ventolin HFA] 90 mcg/actuation HFA aerosol inhaler 1 puff INHALATION Q6H PRN (Reason: Sob &/Or Wheezing) hydroxyurea 500 mg capsule 500 mg PO DAILY Patient Comments: 2 days a week 1000 mg. The other days 500 mg daily/ guaifenesin [Mucinex] 600 mg tablet extended release 12hr 600 mg PO Q12H zoledronic [id number] [Reclast] 5 mg/100 mL piggyback 1 ea .Route .Q2YEAR Patient Comments: .Qyear Rx Instructions: .Qyear cyanocobalamin (vitamin B-12) 1,000 mcg tablet 1,000 mcg PO DAILY Fiber Select Gummies 2-100 gram-mcg tablet,chewable 3 tab PO DAILY Patient Comments: 2 tabs in morning, 1 at dinner acetaminophen 500 mg Tablet 1,000 mg PO Q8 6 Days Qty: 36 0RF cetirizine [Zyrtec] 10 mg tablet 10 mg PO DAILY PRN (Reason: ALLERGIES) meclizine [Antivert] 25 mg tablet,chewable 25 mg PO DAILY PRN PRN (Reason: dizziness) Primary Care Provider: Nathan Vanegas Referrals: Nathan Vanegas, [Primary Care Provider] - As Needed Activity Restrictions/Additional Instructions: I would recommend that you call the surgeon that drainage or pseudocyst on your pancreas and advised them that it has reaccumulated to about the same size. There is a strong chance that the cyst will need to have more definitive care. However at this time not seeing evidence of obstruction and do not feel that hospitalization is needed. Print Language: Vietnamese Disposition Disposition: Home, Self Care
[2024-09-05 08:00] LABS: Absolute Lymphocyte Count 0.92 X10^3/uL (0.83-4.51); Absolute Neutrophil Count 2.3 X10^3/uL (2.0-7.7); Basophil# 0.03 X10^3/uL; Basophil% 0.8 % (0-1); Eosinophil# 0.09 X10^3/uL; Eosinophils% 2.4 % (0-5); Hematocrit 41.1 % (37-47); Lymphocyte # 0.92 X10^3/ul (0.83-4.51); Lymphocyte % 24.3 % (19-41); Mean Corp Hgb Conc 34.1 g/dL (32-36); Mean Corpuscular Hgb 34.2 pg (27.0-32.0); Mean Corpuscular Volume 100.5 fL (81-99); Mean Platelet Vol. 9.1 fl (6.2-12.0); Monocyte% 10.6 % (0-10); NRBC Flagged by Analyzer 0 % (0-5); Neutrophil # 2.33 X10^3/uL (2.7-7.7); Neutrophil % 61.6 % (47-70); Platelet Count 333 K/mm3 (150-450); RBC Distribution Width SD 51.1 fl (35.1-43.9); Red Blood Count 4.09 M/mm3 (4.2-5.4); White Blood Count 3.8 K/mm3 (4.4-11.0)
[2024-09-05 08:22] LABS: AST(SGOT) 19 U/L (<=31); Alanine Aminotransfer ALT/SGPT 17 U/L (<=34); Alkaline Phosphatase 111 U/L (35-104); Anion Gap 12 (5-15); BUN 15 mg/dL (4-19); BUN/Creat Ratio 24.8 RATIO (10-20); Bilirubin, Direct 0.21 mg/dL (0.00-0.30); Calcium,Total 9.6 mg/dL (7.6-11.0); Carbon Dioxide 20.8 mmol/L (21.0-32.0); Chloride 104 mmol/L (98-108); Creatinine, Serum 0.59 mg/dL (0.70-1.20); EST Glomerular Filtration Rate 87 (>60); Estimated Creatinine Clearance 37.82 ml/min (50-250); Globulin 2.4 g/dL (2.2-4.2); Glucose 99 mg/dL (70-99); Lipase 36 U/L (13-75); Protein, Total 6.4 g/dL (5.9-8.4); Sodium Level 136 mmol/L (133-145); Total Bilirubin 0.44 mg/dL (0.00-1.30); Troponin T High Sensitivity 6 ng/L (<=14)
--- NOTE | 2024-09-05 09:06 | CT_ITS ---
PROCEDURE: ABDOMEN/PELVIS W IV CONT ONLY REASON FOR EXAM: Upper abdominal pain. TECHNIQUE: Abdomen and pelvis CT with intravenous contrast. No oral contrast. IV CONTRAST: 100 cc of Isovue-300. COMPARISON: Comparison is made with prior study dated April 09, 2024. FINDINGS: Lung bases: Clear. Elevation of the posterior aspect of the right hemidiaphragm. Anterior pericardial thickness suggestive of a small pericardial effusion. Liver: Unremarkable. Gallbladder: Surgically absent. Spleen: Multiple calcified splenic granulomas. Pancreas: Once again, there is 11.7 cm x 7.8 cm x 8.1 cm cystic mass in the region of the head of the pancreas with extension inferiorly into the right mid abdomen. Tiny calcification are seen along its inferior margin. This is essentially unchanged. Adrenals: Unremarkable. Kidneys: Unremarkable. Bladder: Unremarkable. Reproductive Organs: Calcified fibroid uterus. Bowel: Unremarkable. Appendix: Normal. Lymph nodes: No suspicious lymph node enlargement. Vasculature: Mild diffuse atherosclerotic calcifications are noted. Peritoneum / Retroperitoneum: No ascites. No free air. Bones: Degenerative changes of the spine. The patient is status post bilateral hip replacement causing a lot of beam hardening artifact in the pelvis limiting the evaluation of the pelvic structures. CT/Abdomen/Pelvis W IV Cont ONLY IMPRESSION: Stable examination with a dominant cystic mass in the right midabdomen as descr ibed. Small pericardial effusion. One or more dose reduction techniques were used (e.g., Automated exposure contr ol, adjustment of the mA and/or kV according to patient size, use of iterative reconstruction technique). Reading Location: [id number]
--- NOTE | 2024-09-05 12:45 | ED.RN ---
THIS NURSE CAME FROM ANOTHER PT ROOM AND ANSWERED THE CALL LIGHT FOR THIS PT, Kd HUDSON. PTS FAMILY MEMBER STATED PT HAD FAINTED. PT WAS UP FOR D/C AND JUST WAITING ON D/C PAPERWORK. THIS NURSE ENTERED AND PT BEGAN VOMITING; EMMY RN AND JACQUIE RN ASSISTED PT TO CHECK BS WHICH RESULTED 90 BG, ICE, RECYCLING BP AND GETTING ZOFRAN IV ADMINISTRATED. DR VELA CALLED TO BEDSIDE. PT BECAME RESPONSIVE. DR VELA SPOKE WITH FAMILY MEMBER AND WANTED PT TO HAVE SOME CRACKERS AND BY REQUEST OF PT, A DIET COKE. PT CURRENTLY EATING AND DRINKING. THIS NURSE WILL FOLLOW UP. FAMILY MEMBER AT THE BEDSIDE AND ADVISED TO HIT THE CALL LIGHT IF ANY CHANGES.
[2024-09-05] MEDS: Ondansetron 4 MG/2 ML Vial IV (12:47)
[2024-09-05 16:04] LABS: Bedside Glucose 99 mg/dL (74-106)
--- NOTE | 2024-09-05 16:14 | ED.RN ---
pt d/c with family member. pt pushed in wheelchair to the car ramp and assisted into the vehicle. pt denies any weakness and felt much better from her vaso vagal episode she had after being taken to the bathroom before we attempted to d/c pt the first time. Before d/c Dr. Sanchez wanted to see pt eat and drink and BP to come back to baseline. pt vs stable and pt felt good for d/c
== END 2024-09-05 15:45 | disposition home or self-care (01) ==
PROVIDERS: Emergency Provider Emergency Medicine; PCP Family Medicine; Visit Provider Emergency Medicine
DX: K86.2 Cyst of pancreas (principal); J44.9 Chronic obstructive pulmonary disease, unspecified; R20.2 Paresthesia of skin; R55 Syncope and collapse
CPT/HCPCS: 36415; 74177; 80048; 80076; 82962; 83690; 84484; 85025; 93005; 96374; 99282; Q9967; A4216; J2405

== ENCOUNTER → 2024-12-04 | Outpatient (CLI) | payer MEDICARE, OTHER, SELFPAY ==
--- NOTE | 2024-12-04 11:09 | RAD_ITS ---
PROCEDURE: HIP, UNI W/ PELVIS 2-3 VIEWS 12/04/2024 REASON FOR EXAM: PAIN TECHNIQUE: Frontal view of the pelvis and frontal and lateral views of the left hip were obtained. COMPARISON: Pelvis and right hip, 10/26/2019. FINDINGS: The bony pelvis is intact. There is degenerative disc disease, L3-4 through L5- S1. There is degenerative spurring of both SI joints. There is a normal-appearing left total hip arthroplasty. There is a right total hip arthroplasty. The prosthetic femoral head appears located in the prosthetic acetabulum. The distal end of the femoral component is well demonstrated. There is no evidence of loosening or fracture. The periarticular soft tissues are normal. RAD/HIP, UNI W/ Pelvis 2-3 Views IMPRESSION: Normal-appearing bilateral total hip arthroplasties. Other findings as noted. Reading Location: [id number]
[2024-12-04 12:37] LABS: Absolute Lymphocyte Count 1.12 X10^3/uL (0.83-4.51); Absolute Neutrophil Count 3.7 X10^3/uL (2.0-7.7); Basophil# 0.04 X10^3/uL; Basophil% 0.7 % (0-1); Eosinophil# 0.06 X10^3/uL; Eosinophils% 1.1 % (0-5); Hematocrit 41.1 % (37-47); Hemoglobin 13.5 g/dL (12.0-15.0); Lymphocyte # 1.12 X10^3/ul (0.83-4.51); Lymphocyte % 20.4 % (19-41); Mean Corp Hgb Conc 32.8 g/dL (32-36); Mean Corpuscular Hgb 33.7 pg (27.0-32.0); Mean Corpuscular Volume 102.5 fL (81-99); Mean Platelet Vol. 9.4 fl (6.2-12.0); Monocyte# 0.59 X10^3/uL; Monocyte% 10.7 % (0-10); NRBC Flagged by Analyzer 0 % (0-5); Neutrophil # 3.66 X10^3/uL (2.7-7.7); Neutrophil % 66.7 % (47-70); Platelet Count 392 K/mm3 (150-450); RBC Distribution Width CV 14.6 % (11.6-14.6); RBC Distribution Width SD 54.4 fl (35.1-43.9); Red Blood Count 4.01 M/mm3 (4.2-5.4); White Blood Count 5.5 K/mm3 (4.4-11.0)
--- OUTSIDE RECORDS SUMMARY | 2024-12-04 20:47 | XMS RPT_ITS | CCD ---
Author Organization [facility] Care Team Providers Care Business Services Sales Representative Name Role Phone Abebe Ibarra Attending Unavailable Abebe Ibarra Attending Unavailable Penyn Cowan Unavailable Leslie Mota Unavailable Unavailable Cody Vanegas DO A Primary Care Provider Cody Vanegas DO Primary Care Provider Dr. Cody Vanegas Primary Care Provider Dr. Cody Vanegas Referring Provider MD Jaspal Yu Attending Provider Dr. Osvaldo Fischer Attending Provider Dr. Cody Vanegas Primary Care Provider [phone] Dr. Cody Vanegas Referring Provider MD Jaspal Yu Attending Provider Dr. Osvaldo Fischer Attending Provider Dr. Cody Vanegas Primary Care Provider [phone] Dr. Cody Vanegas Referring Provider [phone] MD Jaspal Yu Attending Provider Dr. Osvaldo Fischer Attending Provider Dr. Terrence Jones Emergency Provider [phone] Atif Ndiaye Admit Provider Dr. Atif Ndiaye Attending Provider Dr. Atif Ndiaye Other Provider Dr. Chris Kahn Other Provider Dr. Tamica Light Attending Provider Kuldeep, Dr. Davey Other Provider Dr. Cody Vanegas Primary Care Provider [phone] Dr. Cody Vanegas Referring Provider MD Jaspal Yu Attending Provider Dr. Osvaldo Fischer Attending Provider Dr. Homer Beaulieu Emergency Provider Agyepong, Dr. Donald Admit Provider Agisauro, Dr. Donald Attending Provider Fidel, Dr. Donald Referring Provider Fidel, Dr. Donald Other Provider Dr. Cody Crandall Other Provider Dr. Nagi Larios Attending Provider [phone] Dr. Nagi Larios Other Provider Dr. Cody Crandall Attending Provider Dr. Homer Zelaya Attending Provider Unavailable Dr. Homer Zelaya Other Provider Unavailable Dr. China Walton Attending Provider Dr. Odilon Parra Referring Provider Dr. Homer Zelaya Referring Provider Unavailable Darrin ORACLE R12 DEVELOPER, ORACLE R12 DEVELOPER-C Crys Attending Provider Unav alidaable Dr. Solo Maxwell Attending Provider [phone] Cody Vanegas Primary Care Provider [phone] Dr. Cody Vanegas Primary Care Provider [phone] Dr. Cody Vanegas Referring Provider Dr. Nagi Larios Attending Provider [phone] Dr. Cody Vanegas Primary Care Provider [phone] Dr. Cody Vanegas Referring Provider Dr. Nagi Larios Attending Provider [phone] Dr. Abebe Keene Attending Provider Michael AMAYA, Cody A Primary Care Provider Michael AMAYA, Dr. Evans Primary Care Provider Michael AMAYA, Dr. Evans Attending Provider Michael MAAYA, Dr. Evans Referring Provider Michael AMAYA, Dr. Evans Other Provider [phone] Sean SAUCEDO, Dr. Stoll Attending Provider Jassi SAUCEDO, Dr. Lomas Attending Provider Jassi SAUCEDO, Dr. Lomas Referring Provider Daniel AMAYA, Dr. Ayala Emergency Provider [phone] Michael, Cody Primary Care Unavailable Friend, Nagi Referring Unavailable Friend, Nagi Attending Unavailable Michael, Cody Attending Unavailable Michael, Cody Primary Care Unavailable Michael, Cody Referring Unavailable Michael, Cody Referring Unavailable Michael, Cody Consulting Unavailable Michael, Cody Primary Care Unavailable Dodie Estrada Attending Unavailable Michael, Cody Primary Care Unavailable Friend, Nagi Attending Unavailable Michael, Cody Referring Unavailable Michael, Cody Referring Unavailable Michael, Cody Attending Unavailable Michael, Cody Primary Care Unavailable Jamie Sanchez Attending Unavailable Michael, Cody Primary Care Unavailable Michael, Cody Referring Unavailable Michael, Cody Attending Unavailable Michael, Cody Primary Care Unavailable Michael, Cody Attending Unavailable Michael, Cody Primary Care Unavailable Abebe Keene Referring Unavailable Abebe Keene Attending Unavailable Michael, Cody Primary Care Unavailable Michael, Cody Attending Unavailable Michael, Cody Primary Care Unavailable Michael, Cody Referring Unavailable Michael, Cody Attending Unavailable Michael, Cody Referring Unavailable Michael, Cody Primary Care Unavailable Michael, Cody Attending Unavailable Michael, Cody Referring Unavailable Michael, Cody Primary Care Unavailable Michael, Cody Attending Unavailable Michael, Cody Referring Unavailable Michael, Cody Primary Care Unavailable Michael, Cody Attending Unavailable Michael, Cody Referring Unavailable Michael, Cody Primary Care Unavailable Michael, Cody Attending Unavailable Michael, Cody Referring Unavailable Michael, Cody Primary Care Unavailable Michael, Cody Attending Unavailable Michael, Cody Referring Unavailable Michael, Cody Primary Care Unavailable NIKA KELLIE Attending Unavailable MICHAEL, CODY A Referring Unavailable MICHAEL, CODY A Primary Care Unavailable KELLIE SERVIN Attending Unavailable MICHAEL, CODY A Primary Care Unavailable Sd ROBLERO Attending Unavailable MICHAEL, CODY A Primary Care Unavailable Sd ROBLERO Attending Unavailable Sd ROBLERO Referring Unavailable MICHAEL, CODY A Primary Care Unavailable Sd ROBLERO Attending Unavailable MICHAEL, CODY A Primary Care Unavailable Allergies Allergy Classification Reported Allergen(s) Allergy Type Date of Onset Reaction(s) Facility (20 sources) Amoxicillin; Translations: [Amoxicillin *PENICILLINS*] Drug Allergy 9 GI Upset [facility] Work Phone: (20 sources) Ciprofloxacin; Translations: [Cipro *FLUOROQUINOLONE S*] Drug Allergy 1 Rash [facility]; [facility] Work Phone: (20 sources) Clarithromycin; Translations: [Biaxin *MACROLIDES*] Drug Allergy 9 GI Upset [facility]; [facility] Work Phone: (1 source) Sodium 4-Aminosalicylat e *CHEMICALS*; Translations: [Sodium 4-Aminosalicylat e *CHEMICALS*] Allergy to drug (finding) [facility]; [facility] Work Phone: Comment on above: sodium pentathol(vannesa th syrum) (20 sources) atorvastatin; Translations: [ATORVASTATIN] Drug Allergy 8 Myalgia [place] (4 sources) sodium pentothal Propensity to adverse reactions 0 nausea [facility] (20 sources) Thiopental; Translations: [THIOPENTAL] Drug Allergy 1 GI Upset [place] (2 sources) Amoxicillin; Translations: [AMOXICILLIN] Drug Allergy 9 [facility] (1 source) atorvastatin Drug Allergy 5 [facility] (2 sources) Ciprofloxacin; Translations: [CIPROFLOXACIN] Drug Allergy 1 [facility] (2 sources) Clarithromycin; Translations: [CLARITHROMYCIN] Drug Allergy 9 [facility] (1 source) Thiopental Drug Allergy 5 [facility] Medications Current Medications Medication Drug Class(es) Dates Sig (Normalized) Sig (Original) acetaminophen 500 mg oral tablet (12 sources) Start: 12-09-2022 take 2 tablets by mouth every eight hours Acetaminophen 500 mg Tablet Active 1000 mg PO EVERY 8 HOURS 36 December 08, 2022 11:00pm Start: 12-09-2022 take 1000 mg by mout h every eight hours Acetaminophen Active 1000 MG PO EVERY 8 HOURS 36 December 09, 2022 12:00am [id number] 200 actuat albuterol 0.09 mg/actuat metered dose inhaler (20 sources) beta2-Adrenergic Agonist Start: 02-26-2018 Albut kyle Sulfate (Ventolin Hfa) 90 mcg/actuation HFA aerosol inhaler Active 1 NMA INHALATION EVERY 6 HOURS as needed for Sob &/Or Wheezing February 25, 2018 11:00pm Start: 02-26-2018 take 1 puff(s) by in halation every six hours Albuterol Sulfate (Ventolin Hfa) 90 mcg/actuation HFA aerosol inhaler Active 1 PUFF INHALATION EVERY 6 HOURS February 26, 2018 12:00am Start: 02-26-2018 take 1.25 mg by inha lation every four hours Albuterol Sulfate Active 1.25 MG INHALATION Q4H February 26, 2018 12:00am Start: 04-25-2012 take 2 puff(s) by in halation every four hours as needed PROAIR HFA 90 mcg/actuation inhaler Inhale 2 Puffs as instructed every 4 hours as needed. 04/25/2012 Active Comment on above: Inhale 2 Puffs as in structed every 4 hours as needed. BACITRACIN/POLYMYXIN B SULFATE (POLYSPORIN TOPICAL) (14 sources) BACITRACIN/POLYM YXIN B SULFATE (POLYSPORIN TOPICAL) Apply to affected area. as needed. Active BACITRACIN/POLYM YXIN B SULFATE (POLYSPORIN TOPICAL) Apply to affected area. as needed. 0 Active Comment on above: Apply to affected ar ea. as needed. betamethasone 0.0005 mg/mg topical ointment (14 sources) Corticosteroid Start: 02-28-2017 betamethasone dipropionate 0.05 % ointment Apply 1 application to affected area as needed. 02/28/2017 Active Comment on above: Apply 1 application to affected area as needed. 16 ml bevacizumab 25 mg/ml injection (5 sources) Vascular Endothelial Growth Factor Inhibitor bevacizumab opht halmic (AVASTIN) 1.25 mg/0.05 mL syringe One injection in left eye every 12 weeks. Active bevacizumab ophthalmic (AVASTIN) 1.25 mg/0.05 mL syringe (9 sources) bevacizumab opht halmic (AVASTIN) 1.25 mg/0.05 mL syringe One injection in left eye every 12 weeks. Active bevacizumab opht halmic (AVASTIN) 1.25 mg/0.05 mL syringe One injection in left eye every 12 weeks. 0 Active bevacizumab opht halmic (AVASTIN) 1.25 mg/0.05 mL syringe One injection in left eye every 4 weeks. 0 Active Comment on above: One injection in lef t eye every 4 weeks. One injection in lef t eye every 12 weeks. Calcium Citrate (14 sources) take 1 tablet by mouth twice daily CALCIUM CITRATE (CITRACAL ORAL) Take 1 tablet by mouth twice daily. Active take 1 tablet by mouth twice marie ly CALCIUM CITRATE (CITRACAL ORAL) Take 1 tablet by mouth twice daily. 0 Active take 4 tablets by mouth once marie ly CALCIUM CITRATE (CITRACAL ORAL) Take 4 tablets by mouth once daily. 500 mg tabs 0 Active Comment on above: Take 4 tablets by mo [facility] once daily. 500 mg tabs Take 1 tablet by ken twice daily. Calcium Phosphate-Vitamin D3 (Citracal-D3 Gummies) 250 mg calcium- 500 unit tablet,chewable (17 sources) Start: 02-26-2018 take 1 tablet by mouth once daily Calcium Phosphate-Vitamin D3 (Citracal-D3 Gummies) 250 mg calcium- 500 unit tablet,chewable Active 1 TABLET PO DAILY February 26, 2018 11:34am Start: 02-26-2018 Calcium Phosph ate-Vitamin D3 (Citracal-D3 Gummies) 250 mg calcium- 500 unit tablet,chewable Active 1 {tbl} PO DAILY February 25, 2018 11:00pm Start: 02-26-2018 take 1 tablet by ken once daily Calcium Phosphate-Vitamin D3 (Citracal-D3 Gummies) 250 mg calcium- 500 unit tablet,chewable Active 1 TABLET PO DAILY February 26, 2018 12:00am Start: 02-26-2018 take 1 tablet by ken once daily Calcium Phosphate-Vitamin D3 (Citracal-D3 Gummies) 250 mg calcium- 500 unit tablet,chewable Active 1 TABLET PO DAILY February 25, 2018 11:00pm cetirizine hydrochloride 10 mg oral tablet (19 sources) Histamine-1 Receptor Antagonist Start: 12-08-2022 End: 07-20-2023 take 1 tablet by mouth once daily as needed Cetirizine (Zyrtec) 10 mg tablet Active 10 mg PO DAILY as needed for ALLERGIES July 20, 2023 10:52am chromium picolinate 0.1 mg / inulin 2000 mg chewable tablet (7 sources) Start: 07-20-2023 take 2-100 tablets by mouth once daily Inulin-Chromium Picolinate (Fiber Select Gummies) 2-100 gram-mcg tablet,chewable Active 3 {tbl} PO DAILY July 20, 2023 12:00am docusate sodium 100 mg oral capsule (20 sources) Start: 02-26-2018 take 1 capsule by mouth once daily Docusate Sodium (Stool Softener) 100 mg capsule Active 100 mg PO DAILY February 25, 2018 11:00pm take 1 capsule by mo [facility] every eight hours as needed docusate sodium (STOOL SOFTENER) 100 mg capsule Take 100 mg by mouth three times daily as needed. Active Comment on above: Take 100 mg by mouth three times daily as needed. fluticasone propionate 0.05 mg/actuat metered dose nasal spray (20 sources) Corticosteroid Start: 02-26-2018 Fluticasone Propionate (Flonase Allergy Relief) 50 mcg/actuation spray,suspension Active 1 NMA INTRANASAL DAILY as needed for Allergies February 25, 2018 11:00pm Start: 02-26-2018 Fluticasone Pr opionate (Flonase Allergy Relief) 50 mcg/actuation spray,suspension Active 1 SPRAY INTRANASAL DAILY February 26, 2018 12:00am Start: 07-07-2008 take 2 spray(s) nasa l route twice daily as needed FLUTICASONE 50 MCG/ACTUATION NASAL SPRAY, SUSP Two sprays in each nostril twice daily as needed. 0 07/07/2008 Active flonase Active Comment on above: Two sprays in each n ostril twice daily as needed. 12 hr guaiFENesin 600 mg extended release oral tablet (19 sources) Start: 02-26-2018 End: 04-01-2024 take 1 tablet by mouth every twelve hours, then take 1 tablet by mouth every twelve hours Guaifenesin (Mucinex) 600 mg tablet extended release 12hr Active 600 mg PO Q12H April 01, 2024 8:30am mucinex prn Acti ve hydroxyurea 500 mg oral capsule (20 sources) Antimetabolite Start: 09-06-2022 take 1 capsule by mouth once daily hydroxyurea (HYDREA) 500 mg capsule Take 1 capsule by mouth once daily. 30 capsule 5 09/06/2022 Active Start: 09-12-2021 End: 09-06-2022 hydroxyurea (HYDREA) 500 mg capsule Indications: Essential thrombocytosis (HCC) Take 1 capsule by mouth every 48 hours. 30 capsule 5 09/12/2021 09/06/2022 Discontinued Start: 02-26-2018 End: 09-14-2022 take 1 capsule by mouth every other day Hydroxyurea 500 mg capsule Discontinued 500 mg PO every other day February 25, 2018 11:00pm September 14, 2022 10:16am Comment on above: Take 1 capsule by mo ut every 48 hours. Take 1 capsule by mo uth once daily. Inulin (20 sources) take 2 capsules by mouth once daily INULIN (FIBER SELECT GUMMIES ORAL) Take 2 capsules by mouth once daily. Active inulin (FIBER MMIES ORAL) Take by mouth. Active take 2 capsules by mouth once da brian INULIN (FIBER SELECT GUMMIES ORAL) Take 2 capsules by mouth once daily. 0 Active Comment on above: Take [address] [facility] once daily. meclizine hydrochloride 25 mg chewable tablet (20 sources) Antiemetic Start: 3 take 1 tablet by mouth once daily as needed for dizziness Meclizine (Antivert) 25 mg tablet,chewable Active 25 mg PO DAILY NEEDED as needed for dizziness January 06, 2023 11:00pm Start: 02-26-2020 End: 12-09-2022 take 1 tablet by mouth once daily Meclizine 25 mg tablet Discontinued 25 mg PO DAILY February 24, 2021 9:05am December 09, 2022 2:39pm Start: 02-26-2020 End: 02-24-2021 Meclizine Discontinued MG PO February 26, 2020 12:00am February 24, 2021 10:06am MINERAL OIL/HYDROPHIL PETROL AT (AQUAPHOR TOPICAL) (14 sources) MINERAL OIL/HYDR OPHIL PETROLAT (AQUAPHOR TOPICAL) Apply to affected area. as needed Active MINERAL OIL/HYDR OPHIL PETROLAT (AQUAPHOR TOPICAL) Apply to affected area. as needed 0 Active Comment on above: Apply to affected ar ea. as needed multivitamin/iron/fol ic acid (CENTRUM WOMEN ORAL) (14 sources) take 1 tablet by mouth once daily multivitamin/iron/fo lic acid (CENTRUM WOMEN ORAL) Take 1 tablet by mouth once daily. Active take 1 tablet by mouth once kathy y multivitamin/iron/folic acid (CENTRUM WOMEN ORAL) Take 1 tablet by mouth once daily. 0 Active multivitamin/iro n/folic acid (CENTRUM WOMEN ORAL) Take by mouth once daily. 0 Active Comment on above: Take by mouth once d aily. Take 1 tablet by ken th once daily. Vit C,T-Fp-Gihhw-Lutein -Zeaxan (Preservision Areds-2) [phone] dq-woou-sf-mg capsule (5 sources) Start: 02-26-2018 take 1 tablet by mouth twice daily Vit C,L-Em-Rgusu-Lutei n-Zeaxan (Preservision Areds-2) [phone] cl-ahbm-je-mg capsule Active 1 TABLET PO TWICE A DAY February 26, 2018 11:39am Start: 02-26-2018 take 1 tablet by ken th twice daily Vit C,W-Ej-Epudr-Lutein-Zeaxan (Preservision Areds-2) [phone] sl-pnrc-rh-mg capsule Active 1 TABLET PO TWICE A DAY February 26, 2018 12:00am Start: 02-26-2018 take 1 tablet by ken th twice daily Vit C,X-Dj-Wdrud-Lutein-Zeaxan (Preservision Areds-2) [phone] ji-jeke-oh-mg capsule Active 1 TABLET PO TWICE A DAY February 25, 2018 11:00pm vitamin b12 1 mg oral tablet (7 sources) Vitamin B12 Start: 07-20-2023 take 1 tablet by mouth once daily Cyanocobalamin (Vitamin B-12) 1,000 mcg tablet Active 1000 ug PO DAILY July 20, 2023 12:00am 100 ml zoledronic acid 0.05 mg/ml injection (19 sources) Bisphosphonate Start: 09-13-2020 Reclast 5 MG/1 00ML Intravenous Solution 1 (one) Milliliter 1 qoyear for 30 days Refills: 0 Ordered: 13-Sep-2020 Penny Cowan DO, DO, Kathleen Start : 13-Sep-2020 Active Start: 02-26-2018 End: 04-01-2024 Zoledronic Mllj-Aqwtwqzl-Odr er (Reclast) 5 mg/100 mL piggyback Active 1 NMA .Route .Q2YEAR April 01, 2024 8:31am .Qyear ZOLEDRONIC ACID/MANNITOL&KAMILLE ER (RECLAST INTRAVEN.) (14 sources) Start: 09-30-2012 ZOLEDRONIC ACI D/MANNITOL&WATER (RECLAST INTRAVEN.) Inject intravenously. Infusion every 2 years. 09/30/2012 Active Start: 09-30-2012 ZOLEDRONIC ACI D/MANNITOL&WATER (RECLAST INTRAVEN.) Inject intravenously. Infusion every 2 years. 0 09/30/2012 Active Comment on above: Inject intravenously . Infusion every 2 years. Completed/Discontinued Medications Medication Drug Class(es) Dates Sig (Normalized) Sig (Original) acetaminophen 325 mg / HYDROcodone bitartrate 5 mg oral tablet (20 sources) Opioid Agonist Start: 01-13-2023 End: 07-20-2023 Hydrocodone-Acetami nophen 5-325 mg tablet Discontinued 1 {tbl} PO TWICE A DAY as needed for pain 6 January 13, 2023 July 20, 2023 10:52am Start: 01-13-2023 End: 07-20-2023 take 1 tablet by mouth twice daily Hydrocodone-Acetaminophen Discontinued 1 TABLET PO TWICE A DAY 6 January 13, 2023 July 20, 2023 11:52am Start: 01-07-2023 End: 01-13-2023 Hydrocodone-Acetaminophen 5- 325 mg Tablet Discontinued 1 {tbl} PO EVERY 12 HOURS NEEDED as needed for PAIN 6-10 January 06, 2023 11:00pm January 13, 2023 8:33am Start: 01-07-2023 End: 01-13-2023 take 1 tablet by mouth every twelve hours as needed Hydrocodone-Acetaminophen Discontinued 1 TABLET PO EVERY 12 HOURS NEEDED January 07, 2023 12:00am January 13, 2023 9:33am Start: 12-08-2022 End: 01-07-2023 Hydrocodone-Acetaminophen 5- 325 mg Tablet Discontinued 1 {tbl} PO 4 TIMES DAILY NEEDED as needed for PAIN 6-10 18 11December 09, 2022 January 07, 2023 10:39pm Start: 12-08-2022 End: 01-07-2023 take 1 tablet by mouth four times daily as needed Hydrocodone-Acetaminophen Discontinued 1 TABLET PO 4 TIMES DAILY NEEDED 18 11December 09, 2022 January 07, 2023 11:39pm Adult One Daily Gummies Oral Tablet Chewable (1 source) Start: 09-13-2020 take 1 tablet by mouth once daily Adult One Daily Gummies Oral Tablet Chewable 1 (one) Tablet daily for 30 days Refills: 0 Ordered: 13-Sep-2020 Penny Cowan DO, DO, Kathleen Start : 13-Sep-2020 Active Comments: otc Comment on above: otc Albuterol Sulfate HFA 108 (90 Base) MCG/ACT Inhalation Aerosol Solution (1 source) Start: 09-13-2020 Albuterol Sulfate HFA 108 (90 Base) MCG/ACT Inhalation Aerosol Solution 2 (two) Puff prn for 30 days Refills: 0 Ordered: 13-Sep-2020 Penny Cowan DO, DO, Kathleen Start : 13-Sep-2020 Active Aspirin / Citric Acid / Sodium Bicarbonate (1 source) Platelet Aggregation Inhibitor, Nonsteroidal Anti-inflammatory Drug, Calculi Dissolution Agent, Anti-coagulant alkaseltzer prn Active cholecalciferol 0.025 mg oral capsule (20 sources) Vitamin D Start: 02-26-2018 End: 07-20-2023 take 1 capsule by mouth once daily Cholecalciferol (Vitamin D3) 1,000 unit capsule Discontinued 1000 U PO DAILY February 25, 2018 11:00pm July 20, 2023 10:52am Start: 02-26-2018 End: 02-24-2021 take 1 capsule by mouth every other week Cholecalciferol (Vitamin D3) 50,000 unit capsule Discontinued 18299 U PO Q14D February 25, 2018 11:00pm February 24, 2021 9:05am take 1 tablet by ken th once daily Cholecalciferol, Vitamin D3, (VITAMIN D) 1,000 unit Tab Take 1,000 Units by mouth once daily. Active Comment on above: otc Take 1,000 Units by mouth once daily. cloebtosol (1 source) cloebtosol Activ e ergocalciferol 69539 unt oral capsule (15 sources) Provitamin D2 Compound Start: 09-14-19 take 1 capsule by mouth every other week Ergocalciferol 1.25 MG (66802 UT) Oral Capsule 1 (one) Capsule 1 every 2 wks for 30 days Quantity: 2 {Capsule} Refills: 0 Ordered: 13-Sep-2020 Penny Cowan DO, DO, Kathleen Start : 13-Sep-2020 Active Comment on above: Take one capsule kiya ry two weeks. estradiol 0.1 mg/ml vaginal cream (6 sources) Estrogen Start: 09-14-19 Estrace 0.1 MG/GM Vaginal Cream as directed for 30 days Refills: 0 Ordered: 13-Sep-2020 Penny Cowan DO, DO, Kathleen Start : 13-Sep-2020 Active Start: 02-26-2018 Estradiol (Est race) 0.01 % (0.1 mg/gram) cream Active 1 GM VAGINAL DAILY February 26, 2018 12:00am Fiber Adult Gummies 2 GM Oral Tablet Chewable (1 source) Start: 09-13-2020 take 1 tablet by mouth once daily Fiber Adult Gummies 2 GM Oral Tablet Chewable 1 (one) Tablet daily for 30 days Refills: 0 Ordered: 13-Sep-2020 Penny Cowan DO, DO, Kathleen Start : 13-Sep-2020 Active Comments: otc Comment on above: otc gas relief (1 source) gas relief Activ e hydrocortisone 25 mg/ml topical cream (1 source) Corticosteroid Start: 09-13-2020 Anusol-HC 2.5 % External Cream 1 (one) Application prn for 30 days Refills: 0 Ordered: 13-Sep-2020 Penny Cowan DO, DO, Kathleen Start : 13-Sep-2020 Active ibuprofen 200 mg oral tablet (20 sources) Nonsteroidal Anti-inflammatory Drug Start: 12-08-2022 End: 01-13-2023 take 2 tablets by mouth every six hours as needed for pain Ibuprofen 200 mg Tablet Discontinued 400 mg PO EVERY 6 HOURS as needed for Pain December 07, 2022 11:00pm January 13, 2023 8:33am Start: 12-08-2022 End: 01-13-2023 take 400 mg by mouth every six hours Ibuprofen Discontinued 400 MG PO EVERY 6 HOURS December 08, 2022 12:00am January 13, 2023 9:33am Start: 02-26-2018 End: 02-20-2019 take 1 capsule by mouth three to four times daily as needed for pain Ibuprofen 200 mg capsule Discontinued 200 mg PO 3 to 4 times per day as needed for Pain February 25, 2018 11:00pm February 20, 2019 9:58am Magnesium (1 source) magnesium daily Active magnesium oxide 500 mg oral capsule (20 sources) Start: 02-26-2018 End: 07-20-2023 Magnesium Oxide 500 mg capsu le Discontinued 250 mg PO TWICE A DAY February 25, 2018 11:00pm July 20, 2023 10:53am Start: 02-26-2018 End: 07-20-2023 take 250 mg by mouth twice daily Magnesium Oxide Discontinued 250 MG PO TWICE A DAY February 26, 2018 12:00am July 20, 2023 11:53am Start: 02-26-2018 take 500 mg by mouth once kathy y Magnesium Oxide Active 500 MG PO DAILY February 26, 2018 12:00am take 1 tablet by ken th once daily Magnesium Oxide 500 mg tab Take 500 mg by mouth once daily. Active Comment on above: Take 500 mg by mouth once daily. metoprolol tartrate 25 mg oral tablet (20 sources) beta-Adrenergic Sweta Start: 09-13-2020 Metoprolol Tartrate 25 MG Oral Tablet 1 (one) Tablet 1/2 tab prn for 0 days Quantity: 30 {Tablet} Refills: 0 Ordered: 13-Sep-2020 Penny Cowan DO, DO, Kathleen Start : 13-Sep-2020 Active Start: 02-20-2019 End: 04-01-2024 Metoprolol Tartrate 25 mg ta blet Discontinued 12.5 mg PO DAILY as needed for heart flutter February 19, 2019 11:00pm April 01, 2024 8:30am Start: 02-20-2019 take 12.5 mg by mout h once daily Metoprolol Tartrate Active 12.5 MG PO DAILY February 20, 2019 12:00am take 0.5 tablet by m outh once daily metoprolol succinate ER (TOPROL XL) 25 mg 24 hr tablet Take 1/2 tablet by mouth once daily. Active Comment on above: Take 1/2 tablet by m outh once daily. miSOPROStol 0.2 mg oral tablet (11 sources) Prostaglandin E1 Analog Start: 3 End: 3 take 1 tablet by mouth four times daily Misoprostol 200 mcg Tablet Discontinued 200 ug PO 4 TIMES DAILY 0 January 12, 2023 11:00pm March 27, 2023 9:46am Oobcbvycisbh-Gnxy-Wi lic Acid (Centrum Women) 18-400 mg-mcg tablet (12 sources) Start: 3 End: 4 Lhsukvokkkal-Ifss-Sb lic Acid (Centrum Women) 18-400 mg-mcg tablet Discontinued 1 {tbl} PO DAILY January 06, 2023 11:00pm July 20, 2023 10:54am Start: 01-07-2023 End: 07-20-2023 take 1 tablet by mouth once daily Xsyccsrdojpb-Tdsg-Pfhrb Acid (Centrum Women) 18-400 mg-mcg tablet Discontinued 1 TABLET PO DAILY January 07, 2023 12:00am July 20, 2023 11:54am Start: 01-07-2023 End: 07-20-2023 take 1 tablet by mouth once daily Zicqqtgfnrbr-Aswr-Ghjph Acid (Centrum Women) 18-400 mg-mcg tablet Discontinued 1 TABLET PO DAILY January 06, 2023 11:00pm July 20, 2023 10:54am Start: 01-07-2023 take 1 tablet by ken th once daily Wbhzpnqfyeaa-Jung-Jbqgf Acid (Centrum Women) 18-400 mg-mcg tablet Active 1 TABLET PO DAILY January 06, 2023 11:00pm Start: 01-07-2023 take 1 tablet by ken th once daily Qnbltpxfnkih-Rxed-Itrdc Acid (Centrum Women) 18-400 mg-mcg tablet Active 1 TABLET PO DAILY January 07, 2023 12:00am omeprazole 20 mg delayed release oral capsule (17 sources) Proton Pump Inhibitor Start: 04-20-2018 End: 02-20-2019 take 1 capsule by mouth once daily Omeprazole 20 MG capsule Discontinued 20 mg PO DAILY April 19, 2018 11:00pm February 20, 2019 9:58am pantoprazole 40 mg delayed release oral tablet (18 sources) Proton Pump Inhibitor Start: 07-24-2023 End: 2023 take 1 tablet by mouth once daily Pantoprazole (Protonix) 40 mg tablet,delayed release (DR/EC) Discontinued 40 mg PO DAILY 60 60 July 24, 2023 12:17pm September 20, 2023 11:00pm September 21, 2023 11:17pm Start: 01-13-2023 End: 07-24-2023 take 1 tablet by mouth twice daily Pantoprazole (Protonix) 40 mg tablet,delayed release (DR/EC) Discontinued 40 mg PO TWICE A DAY 112 56 January 12, 2023 11:00pm July 24, 2023 12:17pm raNITIdine 75 mg oral tablet (17 sources) Histamine-2 Receptor Antagonist Start: 02-26-2018 End: 02-26-2020 take 1 tablet by mouth twice daily Ranitidine Hcl (Zantac 75) 75 mg tablet Discontinued 75 mg PO TWICE A DAY February 25, 2018 11:00pm February 26, 2020 10:49am simethicone 180 mg oral capsule (17 sources) Start: 02-26-2020 End: 07-20-2023 take 1 capsule by mouth twice daily as needed for gastroesophageal reflux disease Simethicone (Gas-X Ultra-Strength) 180 mg capsule Discontinued 180 mg PO TWICE A DAY as needed for Gastric Reflux February 25, 2020 11:00pm July 20, 2023 10:54am stool softner (1 source) stool softner daily Active sucralfate 1000 mg oral tablet (19 sources) Aluminum Complex Start: 01-13-2023 End: 07-20-2023 take 1 tablet by mouth twice daily Sucralfate (Carafate) 1 gram tablet Discontinued 1 g PO TWICE A DAY 120 60 April 02, 2023 11:00pm June 01, 2023 12:00am June 02, 2023 12:28am ubidecarenone 100 mg oral capsule (20 sources) Start: 02-27-2018 End: 07-20-2023 Coenzyme Q10 (Co Q-10) 100 mg capsule Discontinued 200 mg PO TWICE A DAY February 27, 2018 1:21pm July 20, 2023 10:52am Start: 02-27-2018 Coenzyme Q10 ( Co Q-10) 100 mg capsule Active 200 MG PO DAILY February 27, 2018 2:21pm Start: 02-26-2018 End: 02-27-2018 Coenzyme Q10 (Co Q-10) 100 m g capsule Discontinued 100 mg PO DAILY February 25, 2018 11:00pm February 27, 2018 1:22pm take 2 capsules by m outh once daily ubidecarenone Q-10 (CO Q-10) 10 mg cap Take two capsules by mouth once daily. Active Comment on above: Take two capsules by mouth once daily. Vision Formula 2 Oral Capsule (1 source) Start: 09-13-2020 take 1 capsule by mouth once daily Vision Formula 2 Oral Capsule 1 (one) Capsule 2 daily for 30 days Refills: 0 Ordered: 13-Sep-2020 Penny Cowan DO, DO, Kathleen Start : 13-Sep-2020 Active Comments: otc Comment on above: otc Vit A-Vit I-Igtfap-Mkvh-Tiarra er (Ufaa-Mfvj-Qdcl(Vi t A,C-Biotin)) 2,500 unit-100 mg-2,500 mcg capsule (12 sources) Start: 01-07-2023 End: 07-20-2023 Vit A-Vit V-Wsvesp-Hnmr-Copper (Fphv-Qypn-Wfvw(Vit A,C-Biotin)) 2,500 unit-100 mg-2,500 mcg capsule Discontinued 1 NMA PO TWICE A DAY January 06, 2023 11:00pm July 20, 2023 10:54am Start: 01-07-2023 End: 07-20-2023 take 1 capsule by mouth twice daily Vit A-Vit H-Qnbrgw-Kehy-Copper (Oihq-Gzhj-Vexd(Vit A,C-Biotin)) 2,500 unit-100 mg-2,500 mcg capsule Discontinued 1 CAP PO TWICE A DAY January 07, 2023 12:00am July 20, 2023 11:54am Start: 01-07-2023 End: 07-20-2023 take 1 capsule by mouth twice daily Vit A-Vit A-Bvbbzg-Achk-Copper (Xiod-Ocqu-Oepy(Vit A,C-Biotin)) 2,500 unit-100 mg-2,500 mcg capsule Discontinued 1 CAP PO TWICE A DAY January 06, 2023 11:00pm July 20, 2023 10:54am Start: 01-07-2023 take 1 capsule by mo uth twice daily Vit A-Vit S-Hnjynw-Wbie-Copper (Ktkz-Imuo-Xszk(Vit A,C-Biotin)) 2,500 unit-100 mg-2,500 mcg capsule Active 1 CAP PO TWICE A DAY January 06, 2023 11:00pm Start: 01-07-2023 take 1 capsule by mo uth twice daily Vit A-Vit B-Bslrhu-Rxyb-Copper (Ugxk-Pisf-Wcir(Vit A,C-Biotin)) 2,500 unit-100 mg-2,500 mcg capsule Active 1 CAP PO TWICE A DAY January 07, 2023 12:00am Start: 01-07-2023 take 1 capsule by mo uth twice daily Vit A-Vit M-Mhbzcy-Pibw-Copper (Dpym-Slxv-Abvn(Vit A,C-Biotin)) 2,500 unit-100 mg-2,500 mcg capsule Active CAP PO TWICE A DAY January 07, 2023 12:00am Problems Active Problems Problem Classification Problem Date Documented Da te Episodic/Chronic Acute posthemorrhagic anemia (16 sources) Acute posthemorrhagic anemia; Translations: [Acute posthemorrhagic anemia] 01-08-2023 Episodic Cardiac dysrhythmias (17 sources) Palpitations; Translations: [Palpitations] 02-24-2021 Episodic Disorders of lipid metabolism (17 sources) Hyperlipidemia; Translations: [Hyperlipidemia, unspecified] 02-26-2018 Chronic E Codes: Fall (12 sources) Fall; Translations: [Unspecified fall, initial encounter] 12-10-2022 Episodic Gastrointestinal hemorrhage (20 sources) Acute gastrointestinal hemorrhage; Translations: [Gastrointestinal hemorrhage, unspecified] 01-08-2023 Episodic Neoplasms of unspecified nature or uncertain behavior (20 sources) Essential thrombocythemia; Translations: [Essential (hemorrhagic) thrombocythemia] Onset: 2 Chronic Nonspecific chest pain (1 source) Chest pain, unspecified; Translations: [Chest pain, unspecified] Onset: 5 Episodic Osteoporosis (1 source) Age-related osteoporosis without current pathological fracture; Translations: [Age-related osteoporosis without current pathological fracture] Onset: 4 Chronic Other and unspecified benign neoplasm (2 sources) Benign neoplasm of pancreas; Translations: [Benign neoplasm of pancreas, except islets of Langerhans] 10-24-2024 Episodic Other connective tissue disease (13 sources) Pain in buttock; Translations: [Myalgia, other site] 12-02-2022 Episodic Other fractures (12 sources) Closed fracture sacrum; Translations: [Unspecified fracture of sacrum, initial encounter for closed fracture] 12-08-2022 Episodic Other fractures (7 sources) Unspecified fracture of sacrum, initial encounter for closed fracture; Translations: [Closed fracture of sacrum and coccyx without mention of spinal cord injury] 12-09-2022 Episodic Other lower respiratory disease (17 sources) Dyspnea; Translations: [Shortness of breath] 02-05-2019 Episodic Other nervous system disorders (1 source) Unspecified mononeuropathy of bilateral lower limbs; Translations: [Unspecified mononeuropathy of bilateral lower limbs] Onset: 4 Chronic Other nervous system disorders (1 source) Polyneuropathy, unspecified; Translations: [Polyneuropathy, unspecified] Onset: 4 Chronic Other nervous system disorders (1 source) Paresthesia; Translations: [Paresthesia of skin] 09-05-2024 Episodic Other non-traumatic joint disorders (16 sources) Shoulder pain; Translations: [Pain in right shoulder] 05-16-2022 Episodic Other non-traumatic joint disorders (9 sources) Pain in right shoulder; Translations: [Pain in joint, shoulder region] 05-16-2022 Episodic Other non-traumatic joint disorders (15 sources) Pain in right knee; Translations: [Right knee pain] 09-14-2022 Episodic Other non-traumatic joint disorders (20 sources) Hip pain; Translations: [Pain in left hip] 11-16-2022 Episodic Other non-traumatic joint disorders (9 sources) Pain in right hip; Translations: [Pain in joint, pelvic region and thigh] 09-14-2022 Episodic Other skin disorders (14 sources) Localized scleroderma; 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 She has reportedly been under surveillance for this issue by outside endocrinology group until this year. This makes comparison studies somewhat challenging, however, on patient's most recent ultrasound from 08/29/2023 she was identified as having 2 separate nodules that meet ACR criteria for biopsy simply based on their sonographic features. Moreover, patient has had some apparent growth of a left inferior nodule as concluded after reviewing patient's outside records which show a left inferior nodule previously measuring 1.2 x 0.9 x 1.0 cm. I discussed with patient and her daughter the prevalence of thyroid nodules as well as the TI-RADS grading system and then applied this rating system to her nodules. Between the absolute observations and the relative growth noted I did extend radiology's recommendation to pursue FNA biopsy. Patient was receptive of this recommendation and the procedure was undertaken uncomplicated fashion during today's visit. I also obtained additional passes for potential genomic testing if required. Wound care instructions were provided. Unclassified (2 sources) OTHER SPECIFIED DISORDERS OF SYNOVIUM, LEFT KNEE Onset: 8 Unclassified (1 source) New Patient Onset: 5 Past or Other Problems Problem Classification Problem Date Documented Da te Episodic/Chronic Abdominal pain (3 sources) Abdominal pain; Translations: [Unspecified abdominal pain] Onset: 04-29-2024 04-01-2024 Episodic Allergic reactions (20 sources) Eczema; Translations: [Dermatitis, unspecified] Onset: 07-08-2008 Resolved: 11-03-2011 04-16-2011 Episodic Deficiency and other anemia (1 source) Anemia, unspecified; Translations: [Anemia, unspecified] Onset: 03-04-2024 Episodic Malaise and fatigue (1 source) Other fatigue; Translations: [Other fatigue] Onset: 10-31-2023 Episodic Neoplasms of unspecified nature or uncertain behavior (20 sources) Thrombocytosis; Translations: [Thrombocythemia] Onset: 09-02-2009 Resolved: 11-03-2011 01-09-2023 Episodic Other and unspecified benign neoplasm (14 sources) Melanocytic nevus of trunk; Translations: [Melanocytic nevi of trunk] Onset: 08-30-2010 08-30-2010 Episodic Other and unspecified benign neoplasm (14 sources) Senile angioma; Translations: [Hemangioma of skin and subcutaneous tissue] Onset: 08-30-2010 08-30-2010 Episodic Other female genital disorders (14 sources) Leukoplakia of vulva; 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] Onset: 06-05-2011 06-05-2011 Episodic Other female genital disorders (14 sources) Dysplasia of vulva; 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, unspecified] Onset: 06-05-2011 06-05-2011 Episodic Other female genital disorders (14 sources) Leukoplakia of vulva; Translations: [Circumscribed scleroderma] Onset: 11-03-2011 11-03-2011 Episodic Other inflammatory condition of skin (14 sources) Lichenified eczema; Translations: [Lichen simplex chronicus] Onset: 04-16-2011 04-16-2011 Episodic Other inflammatory condition of skin (14 sources) Inflammatory dermatosis; Translations: [Lichen simplex chronicus] Onset: 11-03-2011 11-03-2011 Episodic Other inflammatory condition of skin (14 sources) Prurigo nodularis; 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] Onset: 11-10-2012 11-10-2012 Episodic Other inflammatory condition of skin (6 sources) Itching of skin; Translations: [Pruritus, unspecified] Onset: 11-10-2012 11-10-2012 Episodic Other inflammatory condition of skin (20 sources) Lichen simplex chronicus; Translations: [Lichen simplex chronicus] Onset: 11-11-2012 11-11-2012 Episodic Other inflammatory condition of skin (8 sources) Pruritus, unspecified; Translations: [Unspecified pruritic disorder] Onset: 11-10-2012 11-10-2012 Episodic Other injuries and conditions due to external causes (14 sources) Excoriation of skin; Translations: [Other injury of unspecified body region, initial encounter] Onset: 11-03-2011 11-03-2011 Episodic Other injuries and conditions due to external causes (20 sources) Open wound; Translations: [Other injury of unspecified body region, initial encounter] Onset: 11-03-2009 Resolved: 11-03-2011 08-09-2012 Episodic Other injuries and conditions due to external causes (14 sources) Superficial injury; Translations: [Unspecified multiple injuries, initial encounter] Onset: 11-11-2012 11-11-2012 Episodic Other non-epithelial cancer of skin (20 sources) Basal cell carcinoma of face; Translations: [Basal cell carcinoma of skin of unspecified parts of face] Onset: 09-02-2009 Resolved: 11-10-2012 09-02-2009 Episodic Other skin disorders (14 sources) Seborrheic keratosis; Translations: [Other seborrheic keratosis] Onset: 06-17-2007 01-18-2014 Episodic Other skin disorders (14 sources) Foreign body granuloma of skin; Translations: [Foreign body granuloma of the skin and subcutaneous tissue] Onset: 01-10-2010 01-10-2010 Episodic Other skin disorders (14 sources) Idiopathic guttate hypomelanosis; Translations: [Other specified disorders of pigmentation] Onset: 01-10-2010 01-10-2010 Episodic Other skin disorders (14 sources) Actinic keratosis; Translations: [Actinic keratosis] Onset: 04-16-2011 04-16-2011 Episodic Other skin disorders (14 sources) Inflamed seborrheic keratosis; Translations: [Inflamed seborrheic keratosis] Onset: 04-16-2011 04-16-2011 Episodic Other skin disorders (14 sources) Pseudofolliculitis; Translations: [Other specified follicular disorders] Onset: 04-16-2011 04-16-2011 Episodic Other skin disorders (14 sources) Scar; Translations: [Scar conditions and fibrosis of skin] Onset: 04-16-2011 04-16-2011 Episodic Other skin disorders (14 sources) Solar lentigo; Translations: [Other melanin hyperpigmentation] Onset: 04-16-2011 04-16-2011 Episodic Other skin disorders (14 sources) Asteatosis cutis; Translations: [Xerosis cutis] Onset: 04-16-2011 04-16-2011 Episodic Other skin disorders (20 sources) Skin tag; Translations: [Other hypertrophic disorders of the skin] Onset: 05-23-2010 Resolved: 11-10-2012 11-03-2011 Episodic Other skin disorders (14 sources) Folliculitis; Translations: [Follicular disorder, unspecified] Onset: 11-03-2011 11-03-2011 Episodic Other skin disorders (14 sources) Disorder of skin appendage; Translations: [Other hair color and hair shaft abnormalities] Onset: 11-11-2012 11-11-2012 Episodic Other skin disorders (7 sources) Scar conditions and fibrosis of skin; Translations: [Scar conditions and fibrosis of skin] Onset: 06-04-2006 Resolved: 11-10-2012 11-10-2012 Episodic Other skin disorders (7 sources) Disorder of pigmentation; Translations: [Disorder of pigmentation, unspecified] Onset: 06-04-2006 Resolved: 11-03-2011 11-03-2011 Episodic Other skin disorders (7 sources) Disorder of skin pigmentation; Translations: [Disorder of pigmentation, unspecified] Onset: 07-08-2008 Resolved: 11-03-2011 11-03-2011 Episodic Pancreatic disorders (not diabetes) (20 sources) Cyst of pancreas; Translations: [Cyst of pancreas] Onset: 01-05-2020 01-05-2020 Episodic Skin and subcutaneous tissue infections (14 sources) Pyoderma; Translations: [Pyoderma] Onset: 11-03-2011 11-03-2011 Episodic Unclassified (1 source) Deliveries (Parity); Translations: [Deliveries (Parity)] 09-13-2020 Comment on above: 3 Unclassified (1 source) Pregnancies (); Translations: [Pregnancies ()] 09-13-2020 Comment on above: 3 Unclassified (2 sources) Unspecified Diagnosis 09-13-2020 Viral infection (14 sources) Verruca vulgaris; Translations: [Viral wart, unspecified] Onset: 11-11-2012 11-11-2012 Episodic Results Test Name Value Interpretation Reference Range Facility OV 11-06-2024 [facility] Office Visit ([facility]) TRISTANYUNGKELLIE Marin ([id number]) 1935 F Date Time Provider Department 11/06/24 11:00 AM KELLIE SERVIN [facility] During your visit today, we recorded the following information about you: Pulse Blood pressure Weight Height 70/minute 120/68 54.9 kg 1.499 m Kellie Servin MD 11/26/2024 2:37 PM Signed [facility] SURGERY PROGRESS NOTE Subjective INTERVAL HISTORY OF PRESENT ILLNESS: Continues to have some abdominal fullness and pressure, similar to before Discussed the conversation at [facility] conference and concern for infection if stents were placed into the cyst and would not recommend that. Objective PHYSICAL EXAM: BP 120/68 Pulse 70 Ht 4' 11 (1.50m) Wt 121 lb (54.9kg) SpO2 96% BMI 24.43 kg/(m2). Physical Exam Performed GENERAL: Alert, no distress, cooperative LUNGS: Negative ABDOMEN: Soft, nontender The remainder of the physical exam is noncontributory. DATA: Diagnostic tests reviewed for today's visit: Most recent labs and imaging results. Assessment/Plan 89 year old female with possibly symptomatic MCN. Unclear if her symptoms got better after aspiration of 500cc of fluid endoscopically. Discussed at [facility] conference today. Would not recommend proceeding with stent placement endoscopically. Risks of Whipple outweigh benefit given no evidence of malignancy currently, and patient also not interested in having a Whipple. 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 - hydroxyurea (HYDREA) 500 mg capsule Take 1 capsule by mouth once daily. - multivitamin/iron/folic acid (CENTRUM WOMEN ORAL) Take 1 tablet by mouth once daily. - bevacizumab ophthalmic (AVASTIN) 1.25 mg/0.05 mL syringe One injection in left eye every 12 weeks. - betamethasone dipropionate 0.05 % ointment Apply 1 application to affected area as needed. - metoprolol succinate ER (TOPROL XL) 25 mg 24 hr tablet Take 1/2 tablet by mouth once daily. - Magnesium Oxide 500 mg tab Take 500 mg by mouth once daily. - ubidecarenone Q-10 (CO Q-10) 10 mg cap Take two capsules by mouth once daily. - INULIN (FIBER SELECT GUMMIES ORAL) Take 2 capsules by mouth once daily. - docusate sodium (STOOL SOFTENER) 100 mg capsule Take 100 mg by mouth three times daily as needed. - ergocalciferol, vitamin D2, (VITAMIN D) 50,000 unit capsule Take one capsule every two weeks. - CALCIUM CITRATE (CITRACAL ORAL) Take 1 tablet by mouth twice daily. - ZOLEDRONIC ACID/MANNITOLANDWATER (RECLAST INTRAVEN.) Inject intravenously. Infusion every 2 years. - Cholecalciferol, Vitamin D3, (VITAMIN D) 1,000 unit Tab Take 1,000 Units by mouth once daily. - PROAIR HFA 90 mcg/actuation inhaler Inhale 2 Puffs as instructed every 4 hours as needed. - MINERAL OIL/HYDROPHIL PETROLAT (AQUAPHOR TOPICAL) Apply to affected area. as needed - BACITRACIN/POLYMYXIN B SULFATE (POLYSPORIN TOPICAL) Apply to affected area. as needed. - FLUTICASONE 50 MCG/ACTUATION NASAL SPRAY, SUSP Two sprays in each nostril twice daily as needed. Problem List As Of Date 11/06/2024 Noted Resolved LICHEN SCLEROSIS///CIRCUMSCRIBE SCLERODERMA [L9*06/04/2006 Scar condition and fibrosis of skin [L90.5] 06/04/2006 11/10/2012 Dyschromia, unspecified [L81.9] 06/04/2006 11/03/2011 Seborrheic Keratosis [L82.1] 06/17/2007 ACTINIC DAMAGE///CHR SOLAR SKIN DAMAGE NOS [L57*07/08/2008 11/03/2011 SOLAR LENTIGINES///DYSCHROMIA OTHER [L81.9] 07/08/2008 11/03/2011 Neoplasm of uncertain behavior of skin [D48.5] 09/02/2009 11/03/2011 Other and unspecified malignant neoplasm of ski*09/02/2009 11/10/2012 BCC (Basal Cell Carcinoma), Face [C44.310] 09/02/2009 Open wound site NOS [T14.8XXA] 11/03/2009 11/03/2011 H/O Malignant Neoplasm of Skin: L cheek face: B*01/10/2010 Foreign Body Granuloma of Skin: Acne type [L92.*01/10/2010 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 Normal [facility] CNOVon 10-23-2024 CNOV Office Visit ([facility] 3) KELLIE HUDSON ([id number]) 1935 F Date Time Provider Department 10/23/24 1:00 PM KELLIE SERVIN3 During your visit today, we recorded the following information about you: Pulse Blood pressure Weight Height 84/minute 118/60 55.2 kg 1.499 m Kellie Servin MD 10/29/2024 1:50 PM Signed [facility] SURGERY HANDP Subjective CHIEF COMPLAINT: Pancreatic mucinous cystic neoplasm HISTORY OF PRESENT ILLNESS: Ms. Hudson is a 89 year old female who presents for evaluation of pancreatic cyst. This has been there for many years. She is symptomatic in that she has abdominal fullness and pressure and bloating. She also describes numbness along her costal margin and down her legs which I told her are not related to this cyst. She had an EUS aspiration in 2019 that was consistent with MCN by chemistry. She then presented to Dr. Roblero with the above symptoms. He repeated an EUS and tried to drain the cyst fully but it reaccumulated on most recent scan. It is unclear if she got benefit at all from the drainage - when he asked her if her symptoms improved she thought he was asking about the numbness down her legs and not the abdominal fullness, and now she can't remember if the abdominal fullness got better or not. She is eating well. No unintentional weight loss. No nausea/vomiting. No history of pancreatitis. No family history of pancreatic malignancy. 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 (HCC) Reflux PAST SURGICAL HISTORY Procedure Laterality Date BREAST BIOPSY not sure which side, negative [facility]LECYSTECTOMY 08/22/2010 [facility] partial right shoulder replacement EGD W/EUS AND FNA/BX 01/28/2020 fna suggests a mucinous cystic neoplasm, cea elevated, hiatal hernia, fundic gland polyps, surgery consult GASTROTOMY W/SUTURE REPAIR BLEEDING ULCER 12/2022 PAST SURGICAL HISTORY OF 1993 right colectomy PAST SURGICAL HISTORY OF bilateral hips PAST SURGICAL HISTORY OF 05/2011 Repair of middle right trigger finger PAST SURGICAL HISTORY OF left thumb repair PAST SURGICAL HISTORY OF 04/23/2013 Left hip surgery SKIN BX, 1 LESION Skin biopsy lichen schlorsis Current Outpatient Medications on File Prior to Visit Medication Sig inulin (FIBER GUMMIES ORAL) Take by mouth. hydroxyurea (HYDREA) 500 mg capsule Take 1 capsule by mouth once daily. multivitamin/iron/folic acid (CENTRUM WOMEN ORAL) Take 1 tablet by mouth once daily. bevacizumab ophthalmic (AVASTIN) 1.25 mg/0.05 mL syringe [...] in each nostril twice daily as needed. No current facility-administered medications on file prior to visit. ALLERGIES Allergen Reactions Ciprofloxacin Rash Itching and rash Amoxicillin GI Upset Biaxin [Clarithromy* GI Upset Atorvastatin Myalgia Sodium Pentathal [T* GI Upset Heavy vomiting FAMILY HISTORY Problem Relation Age of Onset Osteoporosis Mother Diabetes Father Coronary Artery Disease Father Diabetes Brother Social History Tobacco Use Smoking status: Never Smokeless tobacco: Never Vaping Use Vaping status: Never Used Substance Use Topics Alcohol use: No Drug use: No Objective PHYSICAL EXAM: BP 118/60 Pulse 84 Ht 4' 11 (1.50m) Wt 121 lb 12.8 oz (55.2kg) SpO2 96% BMI 24.59 kg/(m2). Physical Exam Performed GENERAL: Alert, no distress, cooperative LUNGS: Negative ABDOMEN: Soft, nontender and distended The remainder of the physical exam is noncontributory. DATA: Diagnostic tests revi (more content not included)... Normal [facility] HISTORY PHYSICALon HISTORY PHYSICAL HNO ID: [id number] Author: KELLIE SERVIN MD Service: ? Author Type: Physician Type: H&P Filed: 10/29/2024 13:50 Note Text: [facility] SURGERY HANDP Subjective CHIEF COMPLAINT: Pancreatic mucinous cystic neoplasm HISTORY OF PRESENT ILLNESS: Ms. Hudson is a 89 year old female who presents for evaluation of pancreatic cyst. This has been there for many years. She is symptomatic in that she has abdominal fullness and pressure and bloating. She also describes numbness along her costal margin and down her legs which I told her are not related to this cyst. She had an EUS aspiration in 2019 that was consistent with MCN by chemistry. She then presented to Dr. Roblero with the above symptoms. He repeated an EUS and tried to drain the cyst fully but it reaccumulated on most recent scan. It is unclear if she got benefit at all from the drainage - when he asked her if her symptoms improved she thought he was asking about the numbness down her legs and not the abdominal fullness, and now she can't remember if the abdominal fullness got better or not. She is eating well. No unintentional weight loss. No nausea/vomiting. No history of pancreatitis. No family history of pancreatic malignancy. 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 (HCC) Reflux PAST SURGICAL HISTORY Procedure Laterality Date BREAST BIOPSY not sure which side, negative CHOLECYSTECTOMY 08/22/2010 COLONOSCOPY 2006 union resurfacing 07/14/2008 partial right shoulder replacement EGD W/EUS AND FNA/BX 01/28/2020 fna suggests a mucinous cystic neoplasm, cea elevated, hiatal hernia, fundic gland polyps, surgery consult GASTROTOMY W/SUTURE REPAIR BLEEDING ULCER 12/2022 PAST SURGICAL HISTORY OF 1993 right colectomy PAST SURGICAL HISTORY OF bilateral hips PAST SURGICAL HISTORY OF 05/2011 Repair of middle right trigger finger PAST SURGICAL HISTORY OF left thumb repair PAST SURGICAL HISTORY OF 04/23/2013 Left hip surgery SKIN BX, 1 LESION Skin biopsy lichen schlorsis Current Outpatient Medications on File Prior to Visit Medication Sig inulin (FIBER GUMMIES ORAL) Take by mouth. hydroxyurea (HYDREA) 500 mg capsule Take 1 capsule by mouth once daily. multivitamin/iron/folic acid (CENTRUM WOMEN ORAL) Take 1 tablet by mouth once daily. bevacizumab ophthalmic (AVASTIN) 1.25 mg/0.05 mL syringe [...] in each nostril twice daily as needed. No current facility-administered medications on file prior to visit. ALLERGIES Allergen Reactions Ciprofloxacin Rash Itching and rash Amoxicillin GI Upset Biaxin [Clarithromy* GI Upset Atorvastatin Myalgia Sodium Pentathal [T* GI Upset Heavy vomiting FAMILY HISTORY Problem Relation Age of Onset Osteoporosis Mother Diabetes Father Coronary Artery Disease Father Diabetes Brother Social History Tobacco Use Smoking status: Never Smokeless tobacco: Never Vaping Use Vaping status: Never Used Substance Use Topics Alcohol use: No Drug use: No Objective PHYSICAL EXAM: BP 118/60 Pulse 84 Ht 4' 11 (1.50m) Wt 121 lb 12.8 oz (55.2kg) SpO2 96% BMI 24.59 kg/(m2). Physical Exam Performed GENERAL: Alert, no distress, cooperative LUNGS: Negative ABDOMEN: Soft, nontender and distended The remainder of the physical exam is noncontributory. DATA: Diagnostic tests reviewed for today's visit: Most recent labs and imaging results. EUS Drainage 07/25/24: Extrinsic duodenal compression D1-D2 Large 10 cm anechoic cyst with no nodules/septations seen Aspirated 440 cc clear watery fluid with 19 Ga needle CEA 777 Amylase <3 Cytology (from p (more content not included)... Normal [facility] CNPNon 09-18-2024 CNPN Telephone (AGGENS3) KELLIE HUDSON ([id number]) 1935 F Date Time Provider Department 09/18/24 Sd ROBLERO AGGENS3 During your visit today, we recorded the following information about you: Miranda Aguilera 09/18/2024 9:[address] complete in [place]. Pt was told the pocket filled back up and she needed to call you. Daughter is also asking about a specialist referral for this? Wed 4:17 PM TANNER Roblero MD I am the specialist. I will call them Wed 4:19 PM Ok thanks Miranda Augilera September 18, 2024 9:58 AM Allergies As of Date: 09/18/2024 Noted Allergy Reaction CIPROFLOXACIN 08/29/2010 2 - Rash Comments: Itching and rash AMOXICILLIN 07/07/2008 8 - GI Upset BIAXIN (CLARITHROMYCIN) 06/07/2009 8 - GI Upset ATORVASTATIN 04/20/2018 17 - Myalgia SODIUM PENTATHAL (THIOPENTAL) 08/29/2010 8 - GI Upset Comments: Heavy vomiting Date Reviewed: 08/11/2024 Reviewed by: Sd Roblero MD - Fully Assessed Prescriptions as of 09/18/2024 - inulin (FIBER GUMMIES ORAL) Take by mouth. - hydroxyurea (HYDREA) 500 mg capsule Take 1 capsule by mouth once daily. - multivitamin/iron/folic acid (CENTRUM WOMEN ORAL) Take 1 tablet by mouth once daily. - bevacizumab ophthalmic (AVASTIN) 1.25 mg/0.05 mL syringe One injection in left eye every 12 weeks. - betamethasone dipropionate 0.05 % ointment Apply 1 application to affected area as needed. - metoprolol succinate ER (TOPROL XL) 25 mg 24 hr tablet Take 1/2 tablet by mouth once daily. - Magnesium Oxide 500 mg tab Take 500 mg by mouth once daily. - ubidecarenone Q-10 (CO Q-10) 10 mg cap Take two capsules by mouth once daily. - INULIN (FIBER SELECT GUMMIES ORAL) Take 2 capsules by mouth once daily. - docusate sodium (STOOL SOFTENER) 100 mg capsule Take 100 mg by mouth three times daily as needed. - ergocalciferol, vitamin D2, (VITAMIN D) 50,000 unit capsule Take one capsule every two weeks. - CALCIUM CITRATE (CITRACAL ORAL) Take 1 tablet by mouth twice daily. - ZOLEDRONIC ACID/MANNITOLANDWATER (RECLAST INTRAVEN.) Inject intravenously. Infusion every 2 years. - Cholecalciferol, Vitamin D3, (VITAMIN D) 1,000 unit Tab Take 1,000 Units by mouth once daily. - PROAIR HFA 90 mcg/actuation inhaler Inhale 2 Puffs as instructed every 4 hours as needed. - MINERAL OIL/HYDROPHIL PETROLAT (AQUAPHOR TOPICAL) Apply to affected area. as needed - BACITRACIN/POLYMYXIN B SULFATE (POLYSPORIN TOPICAL) Apply to affected area. as needed. - FLUTICASONE 50 MCG/ACTUATION NASAL SPRAY, SUSP Two sprays in each nostril twice daily as needed. Problem List As Of Date 09/18/2024 Noted Resolved LICHEN SCLEROSIS///CIRCUMSCRIBE SCLERODERMA [L9*06/04/2006 Scar condition and fibrosis of skin [L90.5] 06/04/2006 11/10/2012 Dyschromia, unspecified [L81.9] 06/04/2006 11/03/2011 Seborrheic Keratosis [L82.1] 06/17/2007 ACTINIC DAMAGE///CHR SOLAR SKIN DAMAGE NOS [L57*07/08/2008 11/03/2011 SOLAR LENTIGINES///DYSCHROMIA OTHER [L81.9] 07/08/2008 11/03/2011 Neoplasm of uncertain behavior of skin [D48.5] 09/02/2009 11/03/2011 Other and unspecified malignant neoplasm of ski*09/02/2009 11/10/2012 BCC (Basal Cell Carcinoma), Face [C44.310] 09/02/2009 Open wound site NOS [T14.8XXA] 11/03/2009 11/03/2011 H/O Malignant Neoplasm of Skin: L cheek face: B*01/10/2010 Foreign Body Granuloma of Skin: Acne type [L92.*01/10/2010 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 Skin tags 05/23/2010 11/10/2012 Melanocytic nevus of trunk: occasional intrader*08/30/2010 Vernon angiomas [D18.01] 08/30/2010 Actinic Keratosis: Premalignant AK [L57.0] 04/16/2011 Irritated//Inflamed Seborrheic Keratosis [L82.0]04/16/2011 Eczematous dermatitis [L30.9] 04/16/2011 Pseudofolliculitis [L73.8] 04/16/2011 Lichenified eczema [L28.0] 04/16/2011 Surgical Scars [L90.5] 04/16/2011 Solar Lentigines [L81.4] 04/16/2011 Actinic skin damage [L57.8] 04/16/2011 Xerosis cutis [L85.3] 04/16/2011 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/05/2011 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] 06/05/2011 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/03/2011 Neurodermatitis [L28.0] 11/03/2011 Skin tag [L91.8] 11/03/2011 Folliculitis [L73.9] 11/03/2011 Excoriation [T14.8XXA] 11/03/2011 Pyoderma, unspecified [L08.0] 11/03/2011 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] 05/20/2012 Open wound of unspecified site (L mid ant lower*08/09/2012 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 Normal [facility] Abdomen/Pelvis W IV Cont ONL Yon 09-05-2024 Abdomen/Pelvis W IV Cont ONLY [facility] Imaging Services [address] [place] [address] Abdomen/Pelvis W IV Cont ONLY MR#: [id number] Acct: [id number] Name: KELLIE HUDSON Rep #: [id number] : 1935 F 88 From: Avelino meyer MD PCP: Dr. Cody Vanegas, Status: REG ER Study: Abdomen/Pelvis W IV Cont ONLY Date of Exam: Exam# [id number] Ordering Dr: Jamie Sanchez DO PROCEDURE: ABDOMEN/PELVIS W IV CONT ONLY REASON FOR EXAM: Upper abdominal pain. TECHNIQUE: Abdomen and pelvis CT with intravenous contrast. No oral contrast. IV CONTRAST: 100 cc of Isovue-300. COMPARISON: Comparison is made with prior study dated April 09, 2024. FINDINGS: Lung bases: Clear. Elevation of the posterior aspect of the right hemidiaphragm. Anterior pericardial thickness suggestive of a small pericardial effusion. Liver: Unremarkable. Gallbladder: Surgically absent. Spleen: Multiple calcified splenic granulomas. Pancreas: Once again, there is 11.7 cm x 7.8 cm x 8.1 cm cystic mass in the region of the head of the pancreas with extension inferiorly into the right mid abdomen. Tiny calcification are seen along its inferior margin. This is essentially unchanged. Adrenals: Unremarkable. Kidneys: Unremarkable. Bladder: Unremarkable. Reproductive Organs: Calcified fibroid uterus. Bowel: Unremarkable. Appendix: Normal. Lymph nodes: No suspicious lymph node enlargement. Vasculature: Mild diffuse atherosclerotic calcifications are noted. Peritoneum / Retroperitoneum: No ascites. No free air. Bones: Degenerative changes of the spine. The patient is status post bilateral hip replacement causing a lot of beam hardening artifact in the pelvis limiting the evaluation of the pelvic structures. CT/Abdomen/Pelvis W IV Cont ONLY IMPRESSION: Stable examination with a dominant cystic mass in the right midabdomen as described. Small pericardial effusion. One or more dose reduction techniques were used (e.g., Automated exposure control, adjustment of the mA and/or kV according to patient size, use of iterative reconstruction technique). Reading Location: [id number] CC: Dr. Jamie Sanchez DO; Dr. Cody Vanegas DO Dye Blender: Signed Normal [facility] Absolute neutrophil countOrd ered By: Jamie Sanchez on 09-05-2024 Neutrophils (Bld) [#/Vol] 2.3 10*3/uL 2.0-7.7 [facility] Anion gap in Serum or Plasma Ordered By: Jamie Sanchez on 09-05-2024 Anion gap [Moles/Vol] 12 mmol/L 5-15 [facility] Automated blood erythrocyte countOrdered By: Jamie Sanchez on 09-05-2024 RBC (Bld) [#/Vol] 4.09 10*6/uL Low 4.2-5.4 [facility] Comment on above: Performed By: #### L 503.6150, L501.9520, L500.4050, L503.6550, L100.0100 #### [facility] [address] [place], [address] Automated blood hematocrit ( percentage)Ordered By: Jamie Sanchez on 09-05-2024 Hematocrit (Bld) [Volume fraction] 41.1 % Normal 37-47 [facility] Comment on above: Performed By: #### L 503.6150, L501.9520, L500.4050, L503.6550, L100.0100 #### [facility] [address] [place], [address] Automated lymphocyte count a s percentage of total leukocytesOrdered By: Jamie Sanchez on 09-05-2024 Lymphocytes/100 WBC (Bld) 24.3 % Normal 19-41 [facility] Comment on above: Performed By: #### L 503.6150, L501.9520, L500.4050, L503.6550, L100.0100 #### [facility] [address] [place], [address] BUN/creatinine ratioOrdered By: Jamie Sanchez on 09-05-2024 Urea nitrogen/Creatinine [Mass ratio] 24.8 mg/mg High [facility]20 [facility] Basic Metabolic Profile (BMP )on 09-05-2024 BUN/CRE 24.8 RATIO High [facility]20 [facility] Comment on above: Performed By: #### L 503.6150, L501.9520, L500.4050, L503.6550, L100.0100 #### [facility] [address] [place], [address] Calcium [Mass/Vol] 9.6 mg/dL Normal 7.6-11.0 [facility] Comment on above: Performed By: #### L 503.6150, L501.9520, L500.4050, L503.6550, L100.0100 #### [facility] [address] [place], [address] Chloride [Moles/Vol] 104 mmol/L Normal 98-108 [facility] Comment on above: Performed By: #### L 503.6150, L501.9520, L500.4050, L503.6550, L100.0100 #### [facility] [address] [place], [address] CO2 [Moles/Vol] 20.8 mmol/L Low 21.0-32.0 [facility] Comment on above: Performed By: #### L 503.6150, L501.9520, L500.4050, L503.6550, L100.0100 #### [facility] [address] [place], [address] Creatinine [Mass/Vol] 0.59 mg/dL Low 0.70-1.20 [facility] Comment on above: Performed By: #### L 503.6150, L501.9520, L500.4050, L503.6550, L100.0100 #### [facility] [address] [place], [address] ECRCL 37.82 ml/min Low 50-250 [facility] Comment on above: Performed By: #### L 503.6150, L501.9520, L500.4050, L503.6550, L100.0100 #### [facility] [address] [place], [address] GAP 12 Normal 5-15 [facility] Comment on above: Performed By: #### L 503.6150, L501.9520, L500.4050, L503.6550, L100.0100 #### [facility] [address] [place], [address] GFR/1.73 sq M.predicted among non-blacks MDRD (S/P/Bld) [Vol rate/Area] 87 mL/min/{1.73_m2} Normal >60 [facility] Comment on above: Result Comment: mL/m in/1.73m2 CKD-EPI Creatinine Equation (2020) Performed By: #### L 503.6150, L501.9520, L500.4050, L503.6550, L100.0100 #### [facility] [address] [place], [address] Glucose [Mass/Vol] 99 mg/dL Normal 70-99 [facility] Comment on above: Performed By: #### L 503.6150, L501.9520, L500.4050, L503.6550, L100.0100 #### [facility] [address] [place], [address] Potassium [Moles/Vol] 4.0 mmol/L Normal 3.3-5.1 [facility] Comment on above: Performed By: #### L 503.6150, L501.9520, L500.4050, L503.6550, L100.0100 #### [facility] [address] [place], [address] Sodium [Moles/Vol] 136 mmol/L Normal 133-145 [facility] Comment on above: Performed By: #### L 503.6150, L501.9520, L500.4050, L503.6550, L100.0100 #### [facility] [address] [place], [address] Urea nitrogen [Mass/Vol] 15 mg/dL Normal 4-19 [facility] Comment on above: Performed By: #### L 503.6150, L501.9520, L500.4050, L503.6550, L100.0100 #### [facility] [address] [place], [address] Basophil percentageOrdered B y: Jamie Sanchez on 09-05-2024 Basophils/100 WBC (Bld) 0.8 % Normal 0-1 [facility] Comment on above: Performed By: #### L 503.6150, L501.9520, L500.4050, L503.6550, L100.0100 #### [facility] [address] [place], [address] Bedside Glucoseon 09-05-2024 FINGERSTICK GLU 99 mg/dL Normal 74-106 [facility] Comment on above: Result Comment: DEANGELO LI OF PATIENT CARE PER NURSING PROTOCOL Performed By: #### L 503.6150, L501.9520, L500.4050, L503.6550, L100.0100 #### [facility] [address] [place], [place], [address] Bilirubin directOrdered By: Jamie Sanchez on 09-05-2024 Bilirubin.direct [Mass/Vol] 0.21 mg/dL 0.00-0.30 [facility] Bilirubin, totalOrdered By: Jamie Sanchez on 09-05-2024 Bilirubin [Mass/Vol] 0.44 mg/dL 0.00-1.30 [facility] CBC W/Diff, Automatedon Absolute Lymph 0.92 X10 3/uL Normal 0.83-4.51 [facility] Comment on above: Performed By: #### L 503.6150, L501.9520, L500.4050, L503.6550, L100.0100 #### [facility] [address] [place], [place], [id number] Absolute Neut 2.3 X10 3/uL Normal 2.0-7.7 [facility] Comment on above: Performed By: #### L 503.6150, L501.9520, L500.4050, L503.6550, L100.0100 #### [facility] [address] [place], [address] IG% 0.300 Normal 0.0-0.9 [facility] Comment on above: Result Comment: IG% - Immature Granulocytes (promyelocytes, myelocytes and metamyelocytes) > 1% indicates that a LEFT SHIFT is Present. Performed By: #### L 503.6150, L501.9520, L500.4050, L503.6550, L100.0100 #### [facility] [address] [place], [address] Nucleated RBC (Bld) [#/Vol] 0 10*3/uL Normal 0-5 [facility] Comment on above: Performed By: #### L 503.6150, L501.9520, L500.4050, L503.6550, L100.0100 #### [facility] [address] [place], [address] RDW SD 51.1 fl High 35.1-43.9 [facility] Comment on above: Performed By: #### L 503.6150, L501.9520, L500.4050, L503.6550, L100.0100 #### [facility] [address] [place], [address] Carbon dioxide, total [Moles /volume] in Central venous bloodOrdered By: Jamie Sanchez on 09-05-2024 CO2 [Moles/Vol] 20.8 mmol/L Low 21.0-32.0 [facility] Chloride assayOrdered By: Dayton Sanchez on 09-05-2024 Chloride [Moles/Vol] 104 mmol/L 98-108 [facility] Emergency Department Summary on 09-05-2024 Emergency Department Summary [facility] Medical Records Department [address] [address] Emergency Department Summary 09/05/24 MR#: [id number] Acct: [id number] Name: KELLIE HUDSON Rep #: [id number] : 1935 88 From: Jamie Sanchez DO PCP: Dr. Cody Vanegas, DO Status:REG ER Location: ED HPI History of Present Illness Chief Complaint: Chest Pain Informant: patient and family Narrative Narrative: 88-year-old female presenting to the emergency room with a chief complaint of upper abdominal lower chest tightness. Patient states that for 9 months she has had paresthesias from the lower chest down to her toes. She states nobody has been able to figure out what is causing it. She has intermittently had some tightness of her upper abdomen lower chest. She states that a couple weeks ago she had fluid drained from a pancreatic cyst at [facility] As an outpatient. She states she went to bed feeling her normal self. When she woke during the night she had this tightness in her upper abdomen. She denies fever nausea vomiting cough. She notes she has been stooling normally. She notes her pants are not fitting any different today. She has had prior cholecystectomy. She does not know why she has had a pancreatic cyst. She has a history of upper GI bleeding. [facility] Medical History Pseudocyst of pancreas Depression Fall Left hip pain Right hip pain Right knee pain Bilateral shoulder pain Pericardial effusion Nonrheumatic tricuspid valve regurgitation Hemorrhoids Idiopathic thrombocythemia Vertigo Osteoporosis Osteoarthritis Hyperlipidemia COPD (chronic obstructive pulmonary disease) Macular degeneration GERD (gastroesophageal reflux disease) Secondary pulmonary arterial hypertension Nodule of left lung Pancreatic cyst Goiter Vitamin D deficiency Home Medications ???Medication ???Instructions ???Recorded ???Last Taken ???Type albuterol sulfate 90 mcg/actuation 1 puff inhalation Q6H PRN Sob / Or 02/26/18 Unknown History aerosol inhaler (Ventolin HFA) Wheezing calcium 250 mg (phosphate)-vit D3 1 tab PO DAILY 02/26/18 12/07/22 History 12.5 mcg (500 unit) chewable tablet (Citracal-D3 Gummies) docusate sodium 100 mg capsule 100 mg PO DAILY 02/26/18 12/07/22 History (Stool Softener) fluticasone propionate 50 1 spray intranasal DAILY PRN 02/2612/07/22 History mcg/actuation nasal Allergies spray,suspension (Flonase Allergy Relief) hydroxyurea 500 mg capsule 500 mg PO DAILY 09/14/22 12/07/22 History acetaminophen 500 mg tablet 1,000 mg (2 x 500 mg) PO Q8 6 days 12/09/22 Unknown Rx #36 tabs meclizine 25 mg chewable tablet 25 mg PO DAILY PRN PRN dizziness 0 01/07/23 Unknown History (Antivert) cetirizine 10 mg tablet (Zyrtec) 10 mg PO DAILY PRN ALLERGIES 07/20 Unknown History cyanocobalamin (vitamin B-12) 1,000 mcg PO DAILY 07/20/23 Unknow n History 1,000 mcg tablet inulin-chromium picolinate 2 3 tab PO DAILY 07/20/23 Unknown Hi story gram-100 mcg chewable tablet (Fiber Select Gummies) guaifenesin 600 mg tablet, 600 mg PO Q12H Cough 04/01/24 Unkn own History extended release 12 hr (Mucinex) zoledronic acid 5 mg/100 mL in 1 ea .Route .Q2YEAR 04/01/24 Unkno wn History mannitol 5 %-water intravenous piggybck (Reclast) Allergy/AdvReac Type Severity Reaction Status Date / Time amoxicillin AdvReac Upset Verified 09/05/24 07:23 Stomach atorvastatin (From Lipitor) AdvReac myalgias Verified 09/05/24 07:23 ciprofloxacin (From Cipro) AdvReac Itching Verified 09/05/24 07:23 clarithromycin (From Biaxin) AdvReac Vomiting Verified 09/05/24 07:23 thiopental (From Pentothal) AdvReac Nausea Verified 09/05/24 07:23 Family History Brother CAD (coronary artery disease) Diabetes Father Diabetes Myocardial infarction Surgical History History of appendectomy H/O total knee replacement (06/2018) History of right and left heart catheterization (09/22/13) S/P tendon repair History of carpal tunnel release Hx of cholecystectomy H/O shoulder surgery History of right hip replacement H/O colectomy History of total left hip replacement Social History Smoking Status: Never smoker alcohol intake: never ROS ROS ED Constitutional Constitutional ED: Denies chills or weight loss Eyes Eyes: Denies change in vision or diplopia ENT ENT ED: Denies ear pain, rhinorrhea or sore throat Cardiovascular Cardiovascular: Reports other Details: Lower chest tightness ; Denies chest pain, orthopnea, palpitations or racing heartbeat Respiratory/Chest Respirato (more content not included)... Normal [facility] Eosinophil percentageOrdered By: Jamie Sanchez on 09-05-2024 Eosinophils/100 WBC (Bld) 2.4 % Normal 0-5 [facility] Comment on above: Performed By: #### L 503.6150, L501.9520, L500.4050, L503.6550, L100.0100 #### [facility] [address] [place], [address] Erythrocyte distribution wid th ratioOrdered By: Jamie Sanchez on 09-05-2024 Erythrocyte distribution width (RBC) [Ratio] 14.0 % Normal 11.6-14.6 [facility] Comment on above: Performed By: #### L 503.6150, L501.9520, L500.4050, L503.6550, L100.0100 #### [facility] [address] [place], [place], [address] Erythrocyte distribution wid th standard deviationOrdered By: Jamie Sanchez on 09-05-2024 Erythrocyte distribution width (RBC) [Entitic vol] 51.1 fL High 35.1-43.9 [facility] Estimation of creatinine shaka aranceOrdered By: Jamie Sanchez on 09-05-2024 Estimated Creatinine Clearance Calc 37.82 ml/min Low 50-250 [facility] GFR/1.73 sq M.predicted shannen g non-blacks MDRD (S/P/Bld) [Vol rate/Area]Ordered By: Jamie Sanchez on 09-05-2024 Estimated GFR (MDRD) Non-Af Amer 87 >60 [facility] Comment on above: mL/min/1.73m2 CKD-EP I Creatinine Equation (2020) Glucose measurement at bedsi deOrdered By: Jamie Sanchez on 09-05-2024 Bedside Glucose (Misc Panel) 99 mg/dL 74-106 [facility] Comment on above: MANAGEMENT OF PATIEN T CARE PER NURSING PROTOCOL Hemoglobin measurementOrdere d By: Jamie Sanchez on 09-05-2024 Hemoglobin (Bld) [Mass/Vol] 14.0 g/dL Normal 12.0-15.0 [facility] Comment on above: Performed By: #### L 503.6150, L501.9520, L500.4050, L503.6550, L100.0100 #### [facility] [address] [place], [address] Immature granulocytes/100 WB C Auto (Bld)Ordered By: Jamie Sanchez on 09-05-2024 Immature granulocytes/100 WBC (Bld) 0.300 % 0.0-0.9 [facility] Comment on above: IG% - Immature Granu locytes (promyelocytes, myelocytes and metamyelocytes) > 1% indicates that a LEFT SHIFT is Present. L501.4021on 09-05-2024 Trop T High Sen 6 ng/L Normal <=14 [facility] Comment on above: Performed By: #### L 503.6150, L501.9520, L500.4050, L503.6550, L100.0100 #### [facility] [address] [place], [place], [address] Laboratory - Chemistry and C hemistry - challengeOrdered By: Jamie Sanchez on 09-05-2024 AST [Catalytic activity/Vol] 19 U/L <32 [facility] Lipaseon 09-05-2024 Lipase [Catalytic activity/Vol] 36 U/L Normal 13-75 [facility] Comment on above: Result Comment: Plea se note: LIPASE revised reference range effective 22. New Lipase methodology. Expected to produce lower values than the previous assay method. NEW Reference Range: 13 - 75 U/L Performed By: #### L 503.6150, L501.9520, L500.4050, L503.6550, L100.0100 #### [facility] [address] [place], [address] Lipase measurementOrdered By : Jamie Sanchez on 09-05-2024 Lipase [Catalytic activity/Vol] 36 U/L 13-75 [facility] Comment on above: Please note:LIPASE r evised reference range effective 22. New Lipase methodology. Expected to produce lower values than the previous assay method. NEW Reference Range: 13 - 75 U/L Liver Profileon 09-05-2024 Albumin [Mass/Vol] 4.0 g/dL Normal 3.4-4.8 [facility] Comment on above: Performed By: #### L 503.6150, L501.9520, L500.4050, L503.6550, L100.0100 #### [facility] [address] [place], [address] ALK PHOS 111 U/L High 35-104 [facility] Comment on above: Performed By: #### L 503.6150, L501.9520, L500.4050, L503.6550, L100.0100 #### [facility] [address] [place], [address] ALT [Catalytic activity/Vol] 17 U/L Normal <=34 [facility] Comment on above: Performed By: #### L 503.6150, L501.9520, L500.4050, L503.6550, L100.0100 #### [facility] [address] [place], [address] AST [Catalytic activity/Vol] 19 U/L Normal <=31 [facility] Comment on above: Performed By: #### L 503.6150, L501.9520, L500.4050, L503.6550, L100.0100 #### [facility] [address] [place], [address] Bilirubin [Mass/Vol] 0.44 mg/dL Normal 0.00-1.30 [facility] Comment on above: Performed By: #### L 503.6150, L501.9520, L500.4050, L503.6550, L100.0100 #### [facility] [address] [place], [address] Bilirubin.direct [Mass/Vol] 0.21 mg/dL Normal 0.00-0.30 [facility] Comment on above: Performed By: #### L 503.6150, L501.9520, L500.4050, L503.6550, L100.0100 #### [facility] [address] [place], [address] Globulin (S) [Mass/Vol] 2.4 g/dL Normal 2.2-4.2 [facility] Comment on above: Performed By: #### L 503.6150, L501.9520, L500.4050, L503.6550, L100.0100 #### [facility] [address] [place], [address] T PROT 6.4 g/dL Normal 5.9-8.4 [facility] Comment on above: Performed By: #### L 503.6150, L501.9520, L500.4050, L503.6550, L100.0100 #### [facility] [address] [place], [address] Lymphocytes Auto (Unsp spec) [#/Vol]Ordered By: Jamie Sanchez on 09-05-2024 Lymphocytes (Bld) [#/Vol] 0.92 10*3/uL 0.83-4.51 [facility] MCV (mean corpuscular volume ) determinationOrdered By: Jamie Sanchez on 09-05-2024 MCV (RBC) [Entitic vol] 100.5 fL High 81-99 [facility] Comment on above: Performed By: #### L 503.6150, L501.9520, L500.4050, L503.6550, L100.0100 #### [facility] [address] [place], [address] Mean corpuscular hemoglobin (MCH) determinationOrdered By: Jamie Sanchez on 09-05-2024 MCH (RBC) [Entitic mass] 34.2 pg High 27.0-32.0 [facility] Comment on above: Performed By: #### L 503.6150, L501.9520, L500.4050, L503.6550, L100.0100 #### [facility] [address] [place], [address] Mean corpuscular hemoglobin concentration (MCHC) determinationOrdered By: Jamie Sanchez on 09-05-2024 MCHC (RBC) [Mass/Vol] 34.1 g/dL Normal 32-36 [facility] Comment on above: Performed By: #### L 503.6150, L501.9520, L500.4050, L503.6550, L100.0100 #### [facility] [address] [facility] [place], [place], [id number] Mean platelet volume determi nationOrdered By: Jamie Sanchez on 09-05-2024 Platelet mean volume (Bld) [Entitic vol] 9.1 fL Normal 6.2-12.0 [facility] Comment on above: Performed By: #### L 503.6150, L501.9520, L500.4050, L503.6550, L100.0100 #### [facility] [address] [place], [address] Monocyte percentageOrdered B y: Jamie Sanchez on 09-05-2024 Monocytes/100 WBC (Bld) 10.6 % High 0-10 [facility] Comment on above: Performed By: #### L 503.6150, L501.9520, L500.4050, L503.6550, L100.0100 #### [facility] [address] [place], [address] Neutrophil percentageOrdered By: Jamie Sanchez on 09-05-2024 Neutrophils/100 WBC (Bld) 61.6 % Normal 47-70 [facility] Comment on above: Performed By: #### L 503.6150, L501.9520, L500.4050, L503.6550, L100.0100 #### [facility] [address] [place], [place], [address] No Panel InformationOrdered By: Jamie Sanchez on 09-05-2024 Troponin T High Sensitivity 6 ng/L <14 [facility] Nucleated red blood cell per centageOrdered By: Jamie Sanchez on 09-05-2024 Nucleated RBC/100 WBC (Bld) [Ratio] 0 % 0-5 [facility] Platelet countOrdered By: Dayton Sanchez on 09-05-2024 Platelets (Bld) [#/Vol] 333 10*3/uL Normal 150-450 [facility] Comment on above: Performed By: #### L 503.6150, L501.9520, L500.4050, L503.6550, L100.0100 #### [facility] [address] [place], [place], [address] Potassium (Unsp spec) [Mass/ Vol]Ordered By: Jamie Sanchez on 09-05-2024 Potassium [Moles/Vol] 4.0 mmol/L 3.3-5.1 [facility] Serum creatinine measurement (mass/volume)Ordered By: Jamie Sanchez on 09-05-2024 Creatinine [Mass/Vol] 0.59 mg/dL Low 0.70-1.20 [facility] Serum globulin measurementOr dered By: Jamie Sanchez on 09-05-2024 Globulin (S) [Mass/Vol] 2.4 g/dL 2.2-4.2 [facility] Serum glucose measurement (m ass/volume)Ordered By: Jamie Sanchez on 09-05-2024 Glucose [Mass/Vol] 99 mg/dL 70-99 [facility] Serum or plasma alanine baca otransferase (ALT) measurementOrdered By: Jamie Sanchez on 09-05-2024 ALT [Catalytic activity/Vol] 17 U/L <35 [facility] Serum or plasma albumin gibson urement (mass/volume)Ordered By: Jamie Sanchez on 09-05-2024 Albumin [Mass/Vol] 4.0 g/dL 3.4-4.8 [facility] Serum or plasma alkaline alba sphatase measurementOrdered By: Jamie Sanchez on 09-05-2024 ALP [Catalytic activity/Vol] 111 U/L High 35-104 [facility] Serum or plasma calcium gibson urement (mass/volume)Ordered By: Jamie Sanchez on 09-05-2024 Calcium [Mass/Vol] 9.6 mg/dL 7.6-11.0 [facility] Serum or plasma urea nitroge n measurement (mass/volume)Ordered By: Jamie Sanchez on 09-05-2024 Urea nitrogen [Mass/Vol] 15 mg/dL 4-19 [facility] Sodium levelOrdered By: Christopher Sanchez on 09-05-2024 Sodium [Moles/Vol] 136 mmol/L 133-145 [facility] Total proteinOrdered By: Todd Sanchez on 09-05-2024 Protein [Mass/Vol] 6.4 g/dL 5.9-8.4 [facility] White blood cell (WBC) count Ordered By: Jamie Sanchez on 09-05-2024 WBC (Bld) [#/Vol] 3.8 10*3/uL Low 4.4-11.0 [facility] Comment on above: Performed By: #### L 503.6150, L501.9520, L500.4050, L503.6550, L100.0100 #### [facility] [address] [place], [place], [address] Thyroidon 08-20-2024 Thyroid [facility] [address] [place], [place] [address] Thyroid MR#: [id number] Acct: [id number] Name: KELLIE HUDSON Marin Rep #: [id number] : 1935 F 88 From: Terrence Boyd MD PCP: Dr. Cody Vanegas, DO Status: REG CLI Study: Thyroid Date of Exam: 08/20/24 Exam# [id number] Ordering Dr: Abebe Keene MD PROCEDURE: ULTRASOUND THYROID REASON FOR EXAM: FOLLOW-UP NODULES TECHNIQUE: REAL-TIME GRAYSCALE AND COLOR-FLOW IMAGING WAS PERFORMED ALONG WITH ROUTINE IMAGE DOCUMENTATION. COMPARISON: PRIOR IMAGES FROM 08/29/2023 NOT AVAILABLE FOR COMPARISON. FINDINGS: Right thyroid lobe measures 4.3 x 1.2 x 2.5 cm. Left thyroid lobe measures 3.4 x 1.9 x 2.3 cm. Isthmus thickness is0.3 cm. Background Echotexture: Heterogeneous. Thyroid Nodules: Bilateral. RIGHT NODULE: Mid superior pole, predominantly solid, 0.7 x 0.6 x 0.5 cm, hypoechoic, well-circumscribed, wider than tall, no calcifications, TR 4. NODULE: Lateral superior pole, cystic, 0.5 x 0.4 x 0.3 cm, anechoic, well-circumscribed, TR 1. NODULE: Lateral midpole, cystic, 0.9 x 0.8 x 0.6 cm, anechoic, well-circumscribed, TR 1. LEFT NODULE: Lateral, solid, lobulated, 1.5 x 1.9 x 1.5 cm, hypoechoic, well-circumscribed, peripheral vascularity, TR 4. US/Thyroid IMPRESSION: 1. A TR 4 category predominantly solid micronodule in the right thyroid lobe. No FNA warranted. 2. 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 3. A TR 4 category solid nodule in the left thyroid lobe, smaller than the documented measurements on the previous study. No FNA warranted. 4. Follow-up ultrasound recommended in 12 months. Reading Location: [facility] CC: Dr. Cody Vanegas DO; Dr. Abebe Keene MD Dye Blender: Signed Normal [facility] CNOVon 08-11-2024 CNOV Office Visit (AGGHWB ) KELLIE HUDSON ([id number]) 1935 F Date Time Provider Department 08/11/24 9:00 AM Sd ROBLERO AGGHWB During your visit today, we recorded the following information about you: Pulse Blood pressure Weight Height 90/minute 122/74 56.2 kg 1.499 m Sd Roblero MD 08/11/2024 9:41 AM Signed Keith Roblero MD General Surgery [address] [place] [address], [address] [place] [address] Patient referred by: No referring provider defined for this encounter. HPI: Ms. Hudson is a 88 year old female who presents today for follow-up after her EGD with EUS and drainage of her pancreatic cyst. She had a very large pancreatic cyst in the head of the pancreas (11 cm) I attempted to drain this completely. Amylase level in the fluid was less than 3 CEA level of the fluid was 777. In December 2019 it was 957. 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 She did not have any problems related to the procedure but also did not really notice any change or improvement or resolution of her symptoms. She continues to have intermittent fullness in the epigastric area. She does not have any significant pain. She has some belching and difficulties with gas. It does not seem like classic heartburn symptoms but could be. She also describes some constipation and difficulties with her bowels. She takes fiber and Colace and sometimes Dulcolax. 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 Reflux PAST SURGICAL HISTORY Procedure Laterality Date BREAST BIOPSY not sure which side, negative CHOLECYSTECTOMY 08/22/2010 [facility] partial right shoulder replacement EGD W/EUS AND FNA/BX 01/28/2020 fna suggests a mucinous cystic neoplasm, cea elevated, hiatal hernia, fundic gland polyps, surgery consult GASTROTOMY W/SUTURE REPAIR BLEEDING ULCER 12/2022 PAST SURGICAL HISTORY OF 1993 right colectomy PAST SURGICAL HISTORY OF bilateral hips PAST SURGICAL HISTORY OF 05/2011 Repair of middle right trigger finger PAST SURGICAL HISTORY OF left thumb repair PAST SURGICAL HISTORY OF 04/23/2013 Left hip surgery SKIN BX, 1 LESION Skin biopsy lichen schlorsis FAMILY HISTORY Problem Relation Age of Onset Osteoporosis Mother Diabetes Father Coronary Artery Disease Father Diabetes Brother Social History Tobacco Use Smoking status: Never Smokeless tobacco: Never Vaping Use Vaping status: Never Used Substance Use Topics Alcohol use: No Drug use: No Current Outpatient Medications Medication Sig inulin (FIBER GUMMIES ORAL) Take by mouth. hydroxyurea (HYDREA) 500 mg capsule Take 1 capsule by mouth once daily. multivitamin/iron/folic acid (CENTRUM WOMEN ORAL) Take 1 tablet by mouth once daily. bevacizumab ophthalmic (AVASTIN) 1.25 mg/0.05 mL syringe [...] in each nostril twice daily as needed. No current facility-administered medications for this visit. ALLERGIES Allergen Reactions Ciprofloxacin Rash Itching and rash Amoxicillin GI Upset Biaxin [Clarithromy* GI Upset Atorvastatin Myalgia Sodium Pentathal [T* GI Upset Heavy vomiting REVIEW OF SYSTEMS: ROS PHYSICAL EXAM: BP 122/74 Pulse 90 Ht 4' 11 (1.50m) Wt 124 lb (56.2kg) BMI 25.03 kg/(m2). Last 2 Encounter Wt Readings: Date: Wt: 08/11/2024 56.2 kg (124 lb) 05/19/2024 56 kg (123 lb 7.3 oz) Physical Exam Vitals reviewed. Constitutional: General: She is not in acute distress. Appearance: Normal ap (more content not included)... Normal [facility] Absolute neutrophil countOrd ered By: Cody AguirreMichael on 08-07-2024 Neutrophils (Bld) [#/Vol] 3.2 10*3/uL 2.0-7.7 [facility] Albumin to globulin ratioOrd ered By: Cody Vanegas on 08-07-2024 Albumin/Globulin [Mass ratio] 1.1 {ratio} 0.9-2.4 [facility] Basophil percentageOrdered B y: Cody Vanegas on 08-07-2024 Basophils/100 WBC (Bld) 0.4 % 0-1 [facility] Bilirubin, totalOrdered By: Cody Vanegas on 08-07-2024 Bilirubin [Mass/Vol] 0.50 mg/dL 0.20-1.00 [facility] Comment on above: For patients on eltr ombopag therapy, use of Dimension [place] TBIL is not recommended. Blood urea nitrogen (BUN)/cr eatinine ratioOrdered By: Cody Vanegas on 08-07-2024 Urea nitrogen/Creatinine [Mass ratio] 40.2 mg/mg High 10-20 [facility] CBC W/Diff, Automatedon Absolute Lymph 0.93 X10 3/uL Normal 0.83-4.51 [facility] Comment on above: Performed By: #### L 503.6150, L501.9520, L500.4050, L503.6550, L100.0100 #### [facility] [address] [place], [address] Absolute Neut 3.2 X10 3/uL Normal 2.0-7.7 [facility] Comment on above: Performed By: #### L 503.6150, L501.9520, L500.4050, L503.6550, L100.0100 #### [facility] [address] [place], [address] Basophils/100 WBC (Bld) 0.4 % Normal 0-1 [facility] Comment on above: Performed By: #### L 503.6150, L501.9520, L500.4050, L503.6550, L100.0100 #### [facility] [address] [place], [address] Eosinophils/100 WBC (Bld) 1.1 % Normal 0-5 [facility] Comment on above: Performed By: #### L 503.6150, L501.9520, L500.4050, L503.6550, L100.0100 #### [facility] [address] [place], [address] Erythrocyte distribution width (RBC) [Ratio] 13.9 % Normal 11.6-14.6 [facility] Comment on above: Performed By: #### L 503.6150, L501.9520, L500.4050, L503.6550, L100.0100 #### [facility] [address] [place], [address] Hematocrit (Bld) [Volume fraction] 41.3 % Normal 37-47 [facility] Comment on above: Performed By: #### L 503.6150, L501.9520, L500.4050, L503.6550, L100.0100 #### [facility] [address] [place], [address] Hemoglobin (Bld) [Mass/Vol] 13.5 g/dL Normal 12.0-15.0 [facility] Comment on above: Performed By: #### L 503.6150, L501.9520, L500.4050, L503.6550, L100.0100 #### [facility] [address] [place], [address] IG% 0.200 Normal 0.0-0.9 [facility] Comment on above: Result Comment: IG% - Immature Granulocytes (promyelocytes, myelocytes and metamyelocytes) > 1% indicates that a LEFT SHIFT is Present. Performed By: #### L 503.6150, L501.9520, L500.4050, L503.6550, L100.0100 #### [facility] [address] [place], [address] Lymphocytes/100 WBC (Bld) 19.6 % Normal 19-41 [facility] Comment on above: Performed By: #### L 503.6150, L501.9520, L500.4050, L503.6550, L100.0100 #### [facility] [address] [place], [address] MCH (RBC) [Entitic mass] 33.8 pg High 27.0-32.0 [facility] Comment on above: Performed By: #### L 503.6150, L501.9520, L500.4050, L503.6550, L100.0100 #### [facility] [address] [place], [address] MCHC (RBC) [Mass/Vol] 32.7 g/dL Normal 32-36 [facility] Comment on above: Performed By: #### L 503.6150, L501.9520, L500.4050, L503.6550, L100.0100 #### [facility] [address] [place], [address] MCV (RBC) [Entitic vol] 103.5 fL High 81-99 [facility] Comment on above: Performed By: #### L 503.6150, L501.9520, L500.4050, L503.6550, L100.0100 #### [facility] [address] [place], [address] Monocytes/100 WBC (Bld) 10.3 % High 0-10 [facility] Comment on above: Performed By: #### L 503.6150, L501.9520, L500.4050, L503.6550, L100.0100 #### [facility] [address] [place], [address] Neutrophils/100 WBC (Bld) 68.4 % Normal 47-70 [facility] Comment on above: Performed By: #### L 503.6150, L501.9520, L500.4050, L503.6550, L100.0100 #### [facility] [address] [place], [address] Nucleated RBC (Bld) [#/Vol] 0 10*3/uL Normal 0-5 [facility] Comment on above: Performed By: #### L 503.6150, L501.9520, L500.4050, L503.6550, L100.0100 #### [facility] [address] [place], [address] Platelet mean volume (Bld) [Entitic vol] 9.5 fL Normal 6.2-12.0 [facility] Comment on above: Performed By: #### L 503.6150, L501.9520, L500.4050, L503.6550, L100.0100 #### [facility] [address] [place], [address] Platelets (Bld) [#/Vol] 379 10*3/uL Normal 150-450 [facility] Comment on above: Performed By: #### L 503.6150, L501.9520, L500.4050, L503.6550, L100.0100 #### [facility] [address] [place], [address] RBC (Bld) [#/Vol] 3.99 10*6/uL Low 4.2-5.4 [facility] Comment on above: Performed By: #### L 503.6150, L501.9520, L500.4050, L503.6550, L100.0100 #### [facility] [address] [place], [address] RDW SD 53.1 fl High 35.1-43.9 [facility] Comment on above: Performed By: #### L 503.6150, L501.9520, L500.4050, L503.6550, L100.0100 #### [facility] [address] [place], [address] WBC (Bld) [#/Vol] 4.7 10*3/uL Normal 4.4-11.0 [facility] Comment on above: Performed By: #### L 503.6150, L501.9520, L500.4050, L503.6550, L100.0100 #### [facility] [address] [place], [address] Carbon dioxide measurementOr dered By: Cody Vanegas on 08-07-2024 CO2 [Moles/Vol] 25.0 mmol/L 21.0-32.0 [facility] Chloride measurementOrdered By: Cody Vanegas on 08-07-2024 Chloride [Moles/Vol] 106 mmol/L 98-107 [facility] Comprehensive Metabolic Prof ilon 08-07-2024 Albumin [Mass/Vol] 3.3 g/dL Normal 3.2-5.0 [facility] Comment on above: Performed By: #### L 503.6150, L501.9520, L500.4050, L503.6550, L100.0100 #### [facility] [address] [place], [address] Albumin/Globulin [Mass ratio] 1.1 {ratio} Normal 0.9-2.4 [facility] Comment on above: Performed By: #### L 503.6150, L501.9520, L500.4050, L503.6550, L100.0100 #### [facility] [address] [place], [address] ALK P 108 U/L Normal 45-117 [facility] Comment on above: Performed By: #### L 503.6150, L501.9520, L500.4050, L503.6550, L100.0100 #### [facility] [address] [place], [address] ALT [Catalytic activity/Vol] 18 U/L Normal 13-56 [facility] Comment on above: Performed By: #### L 503.6150, L501.9520, L500.4050, L503.6550, L100.0100 #### [facility] [address] [place], [address] AST [Catalytic activity/Vol] 16 U/L Normal 15-37 [facility] Comment on above: Performed By: #### L 503.6150, L501.9520, L500.4050, L503.6550, L100.0100 #### [facility] [address] [place], [address] Bilirubin [Mass/Vol] 0.50 mg/dL Normal 0.20-1.00 [facility] Comment on above: Result Comment: For patients on eltrombopag therapy, use of Dimension [place] TBIL is not recommended. Performed By: #### L 503.6150, L501.9520, L500.4050, L503.6550, L100.0100 #### [facility] [address] [place], [address] BUN/CRE 40.2 RATIO High 10-20 [facility] Comment on above: Performed By: #### L 503.6150, L501.9520, L500.4050, L503.6550, L100.0100 #### [facility] [address] [place], [address] CA,Total 9.1 mg/dL Normal 8.5-10.1 [facility] Comment on above: Performed By: #### L 503.6150, L501.9520, L500.4050, L503.6550, L100.0100 #### [facility] [address] [place], [address] Chloride [Moles/Vol] 106 mmol/L Normal 98-107 [facility] Comment on above: Performed By: #### L 503.6150, L501.9520, L500.4050, L503.6550, L100.0100 #### [facility] [address] [place], [address] CO2 [Moles/Vol] 25.0 mmol/L Normal 21.0-32.0 [facility] Comment on above: Performed By: #### L 503.6150, L501.9520, L500.4050, L503.6550, L100.0100 #### [facility] [address] [place], [address] Creatinine [Mass/Vol] 0.50 mg/dL Low 0.55-1.02 [facility] Comment on above: Result Comment: The validity of the calculated GFR GFRAA in patients over 70 years has not been determined. Clinical correlation is essential. Performed By: #### L 503.6150, L501.9520, L500.4050, L503.6550, L100.0100 #### [facility] [address] [place], [address] EST GFR - AA 151 mL/min Normal >60 [facility] Comment on above: Result Comment: Afri can Maltese GFR Calc Performed By: #### L 503.6150, L501.9520, L500.4050, L503.6550, L100.0100 #### [facility] [address] [place], [address] GAP 6 Normal 5-15 [facility] Comment on above: Performed By: #### L 503.6150, L501.9520, L500.4050, L503.6550, L100.0100 #### [facility] [address] [place], [address] GFR/1.73 sq M.predicted among non-blacks MDRD (S/P/Bld) [Vol rate/Area] 124 mL/min/{1.73_m2} Normal >60 [facility] Comment on above: Result Comment: Non- GFR Calc Performed By: #### L 503.6150, L501.9520, L500.4050, L503.6550, L100.0100 #### [facility] [address] [place], [address] Globulin (S) [Mass/Vol] 3.1 g/dL Normal 2.2-4.2 [facility] Comment on above: Performed By: #### L 503.6150, L501.9520, L500.4050, L503.6550, L100.0100 #### [facility] [address] [place], [address] Glucose [Mass/Vol] 92 mg/dL Normal 74-106 [facility] Comment on above: Performed By: #### L 503.6150, L501.9520, L500.4050, L503.6550, L100.0100 #### [facility] [address] [place], [address] Potassium [Moles/Vol] 4.0 mmol/L Normal 3.5-5.1 [facility] Comment on above: Performed By: #### L 503.6150, L501.9520, L500.4050, L503.6550, L100.0100 #### [facility] [address] [place], [address] Sodium [Moles/Vol] 137 mmol/L Normal 136-145 [facility] Comment on above: Performed By: #### L 503.6150, L501.9520, L500.4050, L503.6550, L100.0100 #### [facility] [address] [place], [address] T PROT 6.4 g/dL Normal 6.4-8.2 [facility] Comment on above: Performed By: #### L 503.6150, L501.9520, L500.4050, L503.6550, L100.0100 #### [facility] [address] [place], [address] Urea nitrogen [Mass/Vol] 20 mg/dL High 7-18 [facility] Comment on above: Performed By: #### L 503.6150, L501.9520, L500.4050, L503.6550, L100.0100 #### [facility] [address] [place], [address] Eosinophil percentageOrdered By: Cody Vanegas on 08-07-2024 Eosinophils/100 WBC (Bld) 1.1 % 0-5 [facility] Erythrocyte distribution wid th ratioOrdered By: Cody Vanegas on 08-07-2024 Erythrocyte distribution width (RBC) [Ratio] 13.9 % 11.6-14.6 [facility] Erythrocyte distribution wid th standard deviationOrdered By: Cody Vanegas on 08-07-2024 Erythrocyte distribution width (RBC) [Entitic vol] 53.1 fL High 35.1-43.9 [facility] Estimated glomerular filtrat ion rate (GFR) AmericanOrdered By: Cody Vanegas on 08-07-2024 Estimated GFR (MDRD) Amer 151 mL/min >60 [facility] Comment on above: GFR Calc Ferritinon 08-07-2024 Ferritin [Mass/Vol] 81 ng/mL Normal 8-252 [facility] Comment on above: Performed By: #### L 503.6150, L501.9520, L500.4050, L503.6550, L100.0100 #### [facility] [address] [place], [address] Ferritin measurementOrdered By: Cody Vanegas on 08-07-2024 Ferritin [Mass/Vol] 81 ng/mL 8-252 [facility] Glomerular filtration rate ( GFR) estimationOrdered By: Cody Vanegas on 08-07-2024 Estimated GFR (MDRD) Non-Af Amer 124 mL/min >60 [facility] Comment on above: Non- GFR Calc Glucose measurementOrdered B y: Cody Vanegas on 08-07-2024 Glucose [Mass/Vol] 92 mg/dL 74-106 [facility] Hematocrit Auto (Bld) [Volum e fraction]Ordered By: Cody Vanegas on 08-07-2024 Hematocrit (Bld) [Volume fraction] 41.3 % 37-47 [facility] Hemoglobin measurementOrdere d By: Cody Vanegas on 08-07-2024 Hemoglobin (Bld) [Mass/Vol] 13.5 g/dL 12.0-15.0 [facility] Immature granulocytes/100 WB C Auto (Bld)Ordered By: Cody Vanegas on 08-07-2024 Immature granulocytes/100 WBC (Bld) 0.200 % 0.0-0.9 [facility] Comment on above: IG% - Immature Granu locytes (promyelocytes, myelocytes and metamyelocytes) > 1% indicates that a LEFT SHIFT is Present. Ironon 08-07-2024 Iron [Mass/Vol] 102 ug/dL Normal 50-170 [facility] Comment on above: Performed By: #### L 503.6150, L501.9520, L500.4050, L503.6550, L100.0100 #### [facility] [address] [place], [address] Iron (Unsp spec) [Mass/Mass] Ordered By: Cody Vanegas on 08-07-2024 Iron [Mass/Vol] 102 ug/dL 50-170 [facility] - Chemistry and C hemistry - challengeOrdered By: Cody Vanegas on 08-07-2024 AST [Catalytic activity/Vol] 16 U/L 15-37 [facility] Lymphocytes Auto (Unsp spec) [#/Vol]Ordered By: Cody Vanegas on 08-07-2024 Lymphocytes (Bld) [#/Vol] 0.93 10*3/uL 0.83-4.51 [facility] Lymphocytes/100 WBC Auto (Un sp spec)Ordered By: Cody Vanegas on 08-07-2024 Lymphocytes/100 WBC (Bld) 19.6 % 19-41 [facility] MCV (mean corpuscular volume ) determinationOrdered By: Cody Vanegas on 08-07-2024 MCV (RBC) [Entitic vol] 103.5 fL High 81-99 [facility] Mean corpuscular hemoglobin (MCH) determinationOrdered By: Cody Vanegas on 08-07-2024 MCH (RBC) [Entitic mass] 33.8 pg High 27.0-32.0 [facility] Mean corpuscular hemoglobin concentration (MCHC) determinationOrdered By: Cody Vanegas on 08-07-2024 MCHC (RBC) [Mass/Vol] 32.7 g/dL 32-36 [facility] Mean platelet volume determi nationOrdered By: Cody Vanegas on 08-07-2024 Platelet mean volume (Bld) [Entitic vol] 9.5 fL 6.2-12.0 [facility] Monocyte percentageOrdered B y: Cody Vanegas on 08-07-2024 Monocytes/100 WBC (Bld) 10.3 % High 0-10 [facility] Neutrophil percentageOrdered By: Cody Vanegas on 08-07-2024 Neutrophils/100 WBC (Bld) 68.4 % 47-70 [facility] Nucleated red blood cell per centageOrdered By: Cody Vanegas on 08-07-2024 Nucleated RBC/100 WBC (Bld) [Ratio] 0 % 0-5 [facility] Platelet countOrdered By: Alice Vanegas on 08-07-2024 Platelets (Bld) [#/Vol] 379 10*3/uL 150-450 [facility] Potassium measurementOrdered By: Cody Vanegas on 08-07-2024 Potassium [Moles/Vol] 4.0 mmol/L 3.5-5.1 [facility] RBC Auto (Bld) [#/Vol]Ordere d By: Cody Vanegas on 08-07-2024 RBC (Bld) [#/Vol] 3.99 10*6/uL Low 4.2-5.4 [facility] Serum anion gap measurementO rdered By: Cody Vanegas on 08-07-2024 Anion gap [Moles/Vol] 6 mmol/L 5-15 [facility] Serum globulin measurementOr dered By: Cody Vanegas on 08-07-2024 Globulin (S) [Mass/Vol] 3.1 g/dL 2.2-4.2 [facility] Serum or plasma alanine baca otransferase (ALT) measurementOrdered By: Cody Vanegas on 08-07-2024 ALT [Catalytic activity/Vol] 18 U/L 13-56 [facility] Serum or plasma albumin gibson urement (mass/volume)Ordered By: Cody aVnegas on 08-07-2024 Albumin [Mass/Vol] 3.3 g/dL 3.2-5.0 [facility] Serum or plasma alkaline alba sphatase measurementOrdered By: Cody Vanegas on 08-07-2024 ALP [Catalytic activity/Vol] 108 U/L 45-117 [facility] Serum or plasma calcium gibson urement (mass/volume)Ordered By: Cody Vanegas on 08-07-2024 Calcium [Mass/Vol] 9.1 mg/dL 8.5-10.1 [facility] Serum or plasma creatinine m easurement (mass/volume)Ordered By: Cody Vanegas on 08-07-2024 Creatinine [Mass/Vol] 0.50 mg/dL Low 0.55-1.02 [facility] Comment on above: The validity of the calculated GFR & GFRAA in patients over 70 years has not been determined. Clinical correlation is essential. Serum or plasma urea nitroge n measurement (mass/volume)Ordered By: Cody Vanegas on 08-07-2024 Urea nitrogen [Mass/Vol] 20 mg/dL High 7-18 [facility] Sodium levelOrdered By: Cody Vanegas on 08-07-2024 Sodium [Moles/Vol] 137 mmol/L 136-145 [facility] TSH QnOrdered By: Cody perrin on 08-07-2024 Thyroid Stimulating Hormone (TSH) 2.210 uIU/mL 0.358-3.74 0 [facility] Thyroid Stim Hormone (TSH)on 08-07-2024 TSH 2.210 uIU/mL Normal 0.358-3.74 0 [facility] Comment on above: Performed By: #### L 503.6150, L501.9520, L500.4050, L503.6550, L100.0100 #### [facility] [address] [place], [address] Total proteinOrdered By: Franny ulloa Michael on 08-07-2024 Protein [Mass/Vol] 6.4 g/dL 6.4-8.2 [facility] White blood cell (WBC) count Ordered By: Cody Vanegas on 08-07-2024 WBC (Bld) [#/Vol] 4.7 10*3/uL 4.4-11.0 [facility] ANES POSTPROC EVALon 025 ANES POSTPROC EVAL HNO ID: [id number] Author: BAUDILIO VARGHESE MD Service: Anesthesiology Author Type: Physician Type: Anesthesia Postprocedure Evaluation Filed: 07/28/2024 08:11 Note Text: POST ANESTHESIA EVALUATION NOTE : 1935 Procedure Summary Date: 07/25/24 Room / Location: [facility] Anesthesia Start: 1027 Anesthesia Stop: 1121 Procedure: EGD - THERAPEUTIC, EUS, OR TUBE INTERVENTIONS Diagnosis: Pancreatic cyst (Therapeutic procedure) Scheduled Providers: Sd Roblero MD Responsible Provider: Baudilio Varghese MD Anesthesia Type: MAC ASA Status: 3 Anesthesia Type: MAC Last Vitals Vitals Value Taken Time BP 125/66 07/25/24 1135 Temp 36.2 ?C (97.2 ?F) 07/25/24 1120 Pulse 71 07/25/24 1135 Resp 16 07/25/24 1135 SpO2 98 % 07/25/24 1135 Post Anesthesia Patient Status Patient Evaluation: PACU. PACU/ICU Patient Condition: stable. Neurological Status: aware and responsive. Pulmonary Status: breathing comfortably on room air Airway Control: returned to baseline unsupported. Cardiovascular Status: stable. Pain Management: clinically adequate Postoperative Hydration: acceptable. Intraoperative Events: no significant anesthesia events Post Operative Nausea/Vomiting Status: no significant post operative nausea or vomiting Recommendation: continue current plan of care. Anesthesia Observations No Documentation SIGNATURE: Baudilio Varghese MD PATIENT NAME: Kellie Hudson DATE: July 28, 2024 TIME: 8:11 AM CSN: [id number] [facility] ANES PRE-OPon 07-25-2024 ANES PRE-OP HNO ID: [id number] Author: BAUDILIO VARGHESE MD Service: Anesthesiology Author Type: Physician Type: Anesthesia Preprocedure Evaluation Filed: 07/25/2024 10:04 Note Text: ANESTHESIOLOGY DAY OF SURGERY NOTE : 1935 Procedure Information Date/Time: 07/25/24 1000 Scheduled providers: Sd Roblero MD Procedure: EGD - THERAPEUTIC, EUS, OR TUBE INTERVENTIONS Location: [facility] Estimated body mass index is 24.94 kg/m? as calculated from the following: Height as of 05/19/24: 149.9 cm (4' 11). Weight as of 05/19/24: 56 kg (123 lb 7.3 oz). Most recent hematocrit and potassium results: Hematocrit 42.2 08/23/2022 Potassium 4.2 11/06/2022 Relevant Problems CARDIO (+) Vernon angiomas NEURO-PSYCH (+) H/O Malignant Neoplasm of Skin: L cheek face: BCC I - PHYSICAL EVALUATION AIRWAY Patient intubated: No. Tracheostomy tube not present Mallampati: II. TM distance: >3 FB. Neck ROM: full ROM without neurological symptoms. Mouth opening: adequate. Short neck: no. Thick neck: no DENTAL Dental findings: poor dentition. II - ANESTHESIA PLAN ASA Score: 3 Anesthetic Plan: MAC NPO Status: adequate Beta Sweta Monitoring Plan Monitoring plan: standard ASA. Post Procedure Analgesic Plan Postoperative analgesic plan: other. Informed Consent Anesthetic risks, benefits, alternatives, personnel and consent discussed: yes. Patient / Responsible Alliance Party agrees to proceed: yes Patient / Surrogate agrees to blood products: blood products not planned Significant changes in the patient condition since the History and Physical, not otherwise documented in primary service progress note: no. Potential Anesthesia issues that may suggest increased risk of complications or contraindication to planned procedure: none. Vitals Value Taken Time BP 129/73 07/25/24 09 Pulse 89 07/25/24 09 Resp 18 07/25/24954 Temp 36.2 ?C (97.2 ?F) 07/25/24954 SpO2 96 % 07/25/24954 Outpatient Medications as of 07/25/2024 Medication Sig - inulin (FIBER GUMMIES ORAL) Take by mouth. - hydroxyurea (HYDREA) 500 mg capsule Take 1 capsule by mouth once daily. - multivitamin/iron/folic acid (CENTRUM WOMEN ORAL) Take 1 tablet by mouth once daily. - Magnesium Oxide 500 mg tab Take 500 mg by mouth once daily. - ergocalciferol, vitamin D2, (VITAMIN D) 50,000 unit capsule Take one capsule every two weeks. - Cholecalciferol, Vitamin D3, (VITAMIN D) 1,000 unit Tab Take 1,000 Units by mouth once daily. - FLUTICASONE 50 MCG/ACTUATION NASAL SPRAY, SUSP Two sprays in each nostril twice daily as needed. - bevacizumab ophthalmic (AVASTIN) 1.25 mg/0.05 mL syringe One injection in left eye every 12 weeks. - betamethasone dipropionate 0.05 % ointment Apply 1 application to affected area as needed. - metoprolol succinate ER (TOPROL XL) 25 mg 24 hr tablet Take 1/2 tablet by mouth once daily. - ubidecarenone Q-10 (CO Q-10) 10 mg cap Take two capsules by mouth once daily. - INULIN (FIBER SELECT GUMMIES ORAL) Take 2 capsules by mouth once daily. - docusate sodium (STOOL SOFTENER) 100 mg capsule Take 100 mg by mouth three times daily as needed. - CALCIUM CITRATE (CITRACAL ORAL) Take 1 tablet by mouth twice daily. - ZOLEDRONIC ACID/MANNITOLANDWATER (RECLAST INTRAVEN.) Inject intravenously. Infusion every 2 years. - PROAIR HFA 90 mcg/actuation inhaler Inhale 2 Puffs as instructed every 4 hours as needed. - MINERAL OIL/HYDROPHIL PETROLAT (AQUAPHOR TOPICAL) Apply to affected area. as needed - BACITRACIN/POLYMYXIN B SULFATE (POLYSPORIN TOPICAL) Apply to affected area. as needed. No current facility-administered medications on file as of 07/25/2024. I have interviewed and examined the patient. I have reviewed the medical record and/or the pre-anesthesia evaluation, pertinent labs, and test results. This contains updated information obtained within 48 hours of Surgery/Procedure. SIGNATURE: Baudilio Varghese MD PATIENT NAME: Kellie Hudson DATE: July 25, 2024 TIME: 10:04 AM CSN: [id number] Normal [facility] Amylase (Body fld) [Catalyti c activity/Vol]on 07-25-2024 Fluid Nom (Body fld) Cyst (Specify site in comment) Normal [facility] Comment on above: Order Comment: Speci men Type: FLUID SPECIMENOrdering Facility: [facility] Address: [address] [place] [address] Result Comment: PANC REATIC CYST Performed By: #### 1 795-4 ####[facility]ORY[facility]IA [id number] [place] [address] [place] Amylase Fld-cCncon 5 Amylase (Body fld) [Catalytic activity/Vol] <3 Normal See Comment [facility] Comment on above: Order Comment: Speci men Type: FLUID SPECIMENOrdering Facility: [facility] Address: [address] [place] [address] Result Comment: PLEU RAL FLUIDS: Amylase measurement in pleural fluid is considered a useful test for detecting amylase-rich pleural effusions, which may be caused by exudative conditions associated with pancreatitis, esophageal rupture, malignancy, pneumonia, and liver cirrhosis. A ratio of pleural fluid amylase to a concurrent serum amylase >1 is defined as an amylase-rich pleural effusion. PERITONEAL FLUIDS AND DRAINAGE FLUIDS: Pancreatic damage causes extravasation of amylase from the exocrine cells into the peritoneal space. In cases of pancreatitis, fluid amylase should be at least several-fold times higher in fluid of pancreatic origin compared to concurrent serum amylase values. PANCREATIC CYST FLUID: Pancreatic cyst fluid amylase may aid in characterizing tumors and should be interpreted along with other clinical and laboratory information. References: 1. Lori BETH, Alfie Luevano. Body fluid analysis: clinical utility and applicability of published studies to guide interpretation of todays laboratory testing in serous fluids. Crit Rev Clin Lab Sci, 2013;50(4-5):107-124. 2. CLSI. Analysis of Body Fluids in Clinical Chemistry; Approved Guideline. CLSI document C49-A. PATIENCE Ordaz: Clinical Laboratory Standards [place]; 2007. 3. Debbie LOPEZH, Saqib RC, Tramaine DJ. Use of cyst fluid CEA, CA19-9, and amylase for evaluation of pancreatic lesions. Clinical Biochemistry. 2009;42:4463-7096. This test was developed, and its performance characteristics determined by the [facility]. It has not been cleared or approved by the FDA. The [facility] is regulated under CLIA as qualified to perform high-complexity testing. This test is used for clinical purposes. It should not be regarded as investigational or for research. Performed By: #### 1 795-4 ####[facility]ORATORYCLIA [id number] [address] BRIEF OP NOTon 07-25-2024 BRIEF OP NOT HNO ID: [id number] Author: Sd ORBLERO MD Service: General Surgery Author Type: Physician Type: Brief Op Note Filed: 07/25/2024 11:20 Note Text: BRIEF OPERATIVE / PROCEDURE NOTE LOG ID: [id number] SURGERY/PROCEDURE DATE: 07/25/2024 INCISION/PROCEDURE START TIME: 10:34 AM INCISION CLOSE/PROCEDURE END TIME: 11:14 AM SURGEON(S)/PROCEDURALIST(S) AND AUTO BODY MAN(S): Sd Roblero MD - Proceduralist No Additional Staff SURGERY/PROCEDURE(S): EGD with EUS ans aspiration of pancreatiuc cyst ANESTHESIA: Procedural Sedation FINDINGS: esoph- normal- z line at 35 cm Stomach -normal Duod- extrinsic compression by cyst in D1-D2 Large (10 cm) anechoic cyst with no nodules-septations etc seen with EUS Aspirated 440 cc clear watery fluid with 19 ga needle ESTIMATED BLOOD LOSS: scant SPECIMENS: pancreatic cyst fluid COMPLICATIONS: None CLOSURE TECHNIQUE: PRE-OP/PRE-PROCEDURE DIAGNOSIS: pancreatic cyst POST-OP/POST-PROCEDURE DIAGNOSIS: Same as Preop Patient was accompanied to the next level of care by a licensed practitioner from the surgical team pending completion of this brief op note (or operative note) SIGNATURE: Sd Roblero MD PATIENT NAME: Kellie Hudson DATE: July 25, 2024 TIME: 11:18 AM Normal [facility] CEA, FLUIDon 07-25-2024 CEA, BODY FLUID 777.0 ng/mL Normal [facility] Comment on above: Order Comment: Jhony prakash Type: FLUID SPECIMEN [facility] Address: [address] [place] [address] Result Comment: INTE RPRETIVE INFORMATION: Carcinoembryonic Antigen, Fluid The Ramirez CEA electrochemiluminescent immunoassay was used. Results obtained with different assay methods or kits cannot be used interchangeably. The CEA assay value, regardless of level, should not be interpreted as evidence for the presence or absence of malignant disease. For information on body fluid reference ranges and/or interpretive guidance visit [email or web address].Mealnut/bodyfluids/ This test was developed and its performance characteristics determined by [facility]. It has not been cleared or approved by the US Food and Drug Administration. This test was performed in a CLIA certified laboratory and is intended for clinical purposes. Performed By: [facility] [address] [place] [address] De Icer Installer: Valentin Rodriguez MD, PhD CLIA Number: [id number] Performed By: #### C EAFL #### [facility] CLIA [id number] [address] [place] [address] SOURCE, FLUID Pancreatic Normal [facility] Comment on above: Order Comment: Specmonica prakash Type: FLUID SPECIMEN [facility] Address: [address] [place] [address] Performed By: #### C EAFL #### [facility] CLIA [id number] [address] [place] [address] HISTORY PHYSICALon HISTORY PHYSICAL HNO ID: [id number] Author: RUMA MENDOZA APRN.SEVEN Service: ? Author Type: Nurse Practitioner Type: H&P Filed: 07/25/2024 10:22 Note Text: HISTORY AND PHYSICAL EXAMINATION SERVICE DATE: 07/25/2024 SERVICE TIME: 9:56 AM PRIMARY CARE PHYSICIAN: Cody Vanegas DO REASON FOR VISIT: Kellie Hudson is a 88 year old female who is scheduled for EGD at the request of Dr. Sd Roblero for routine HANDP. The reason for this visit is to perform a comprehensive review of the patient's past medical history, assess their current health status and obtain any additional testing required based on anesthesia guidelines. We will also identify any potential anesthesia problems or contraindications to the planned procedure. 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 Skin Tag Folliculitis Excoriation Pyoderma, Unspecified Essential Thrombocytosis (Hcc) Open wound of unspecified site (L mid ant lower leg), without mention of complication Prurigo Nodularis Pruritus Viral Warts, Unspecified Lichenification and Lichen Simplex Chronicus Contact Dermatitis and Other Eczema, Due to Unspecified Cause Other and Unspecified Superficial Injury of Other, Multiple, and Unspecified Sites, Without Mention of Infection Other Specified Disease of Hair and Hair Follicles Lsc (Lichen Simplex Chronicus) Pancreatic Cyst Preop Examination Subjective CHIEF COMPLAINT: Pancreatic cyst [K86.2] HPI: Patient present to [facility] for the above procedure. Patient here for evaluation of pancreatic cyst. Patient reports pancreatic cyst found since 2019. Recent CT scan showed increased in size from 8cm to 11cm. She reports fullness and bloating, feels the abdomen is very tight. Reports constipation and taking Ducolax BID. Reports feeling of numbness across the lower abdomen and all the way down to bilateral thigh and coldness in both legs. Also reports presents of hiatal hernia. Occasional GERD but controlled with prn keyona seltzer. Patient denies any N/V. Denies any melena, hematochezia, or hematemesis. Patient has no known family history of Esophageal cancer, Colon cancer or other Gastric cancer. Patient agreed to planned procedure. METS: Do moderate work around the house such as vacuuming, sweeping floors, or carrying in groceries (3.50 METs) Patient denies any CP/SOB with above activity. 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 Reflux PAST SURGICAL HISTORY Procedure Laterality Date BREAST BIOPSY not sure which side, negative CHOLECYSTECTOMY 08/22/2010 COLONOSCOPY 2006 union resurfacing 07/14/2008 partial right shoulder replacement EGD W/EUS AND FNA/BX 01/28/2020 fna suggests a mucinous cystic neoplasm, cea elevated, hiatal hernia, fundic gland polyps, surgery consult GASTROTOMY W/SUTURE REPAIR BLEEDING ULCER 12/2022 PAST SURGICAL HISTORY OF 1993 right colectomy PAST SURGICAL HISTORY OF bilateral hips PAST SURGICAL HISTORY OF 05/2011 Repair of middle right trigger finger PAST SURGICAL HISTORY OF left thumb repair PAST SURGICAL HISTORY OF 04/23/2013 Left hip surgery SKIN BX, 1 LESION Skin biopsy lichen schlorsis FAMILY HISTORY Problem Relation Age of Onset Osteoporosis Mother Diabetes Father Coronary Artery Disease Father Diabetes Brother SOCIAL HISTORY: Social History Tobacco Use Smoking status: Never Smokeless tobacco: Never Vaping Use Vaping status: Never Used Substance Use Topics Alcohol use: No Drug use: No Prior to Admission medications as of 07/25/24 0954 Medication Sig Last Dose Taking inulin (FIBER GUMMIES ORAL) Take by mouth. 07/24/2024 Yes hydroxyurea (HYDREA) 500 mg capsule Take 1 capsule by mouth once daily. 07/25/2024 at 0630 Yes multivitamin/iron/folic acid (CENTRUM WOMEN ORAL) Take 1 tablet by mouth once daily. 07/24/2024 Yes Magnesium Oxide 500 mg tab Take 500 mg by mouth once daily. 07/24/2024 Yes ergocalciferol, vitamin D2, (VITAMIN D) 50,000 unit capsule Take one capsule every two weeks. 07/24/2024 Yes Cholecalciferol, Vitamin D3, (VITAMIN D) 1,000 unit Tab Take 1,000 Units by mouth once daily. 07/24/2024 Yes FLUTICASONE 50 MCG/ACTUATION NASAL SPRAY, SUSP Two sprays in each nostril twice da (more content not included)... Normal [facility] Upper GI endoscopyon 07-25-2 025 Upper GI endoscopy [facility] Gastrointestinal Endoscopy Patient Name: Kellie Hudson Procedure Date: 07/25/2024 10:14 AM Date of : 1935 Admit Type: Outpatient Room: [place] [address] Gender: Female Note Status: Finalized Attending MD: Sd Roblero MD, [id number] Procedure: Upper GI endoscopy with EUS and aspiration of pancreatic cyst Indications: Therapeutic procedure, Abnormal CT of the GI tract, Pancreatic pseudocyst Providers: Sd Roblero MD Patient Profile: This is an 88 year old female. Refer to note in patient chart for documentation of history and physical. Patient has symptoms of chronic abdominal distention. On CT scan she has an 11 cm cystic lesion in the head of the pancreas area. It appears simple-benign by imaging. she previously underwent an EUS and FNA in 2019- this was consistent with a mucinous cystic neoplasm. Referring Physician: Sd Roblero MD (Referring MD) Medicines: Monitored Anesthesia Care Complications: No immediate complications. Procedure: Pre-Anesthesia Assessment: - Prior to the procedure, a History and Physical was performed, and patient medications and allergies were reviewed. The patient's tolerance of previous anesthesia was also reviewed. The risks and benefits of the procedure and the sedation options and risks were discussed with the patient. All questions were answered, and informed consent was obtained. Prior Anticoagulants: The patient has taken no anticoagulant or antiplatelet agents. ASA Grade Assessment: II - A patient with mild systemic disease. After reviewing the risks and benefits, the patient was deemed in satisfactory condition to undergo the procedure. After obtaining informed consent, the endoscope was passed under direct vision. Throughout the procedure, the patient's blood pressure, pulse, and oxygen saturations were monitored continuously. The Endosonoscope was introduced through the mouth, and advanced to the second part of duodenum. I was present and participated during the entire procedure, including non-galdamez portions, and during the administration and monitoring of Moderate Sedation. The Endoscope was introduced through the and advanced to the. I was present and participated during the entire procedure, including non-galdamez portions, and during the administration and monitoring of Moderate Sedation. The upper GI endoscopy was accomplished without difficulty. The patient tolerated the procedure well. Moderate Sedation: Exam was performed under monitored anesthesia care (MAC) Findings: The examined esophagus was normal. The Z-line was regular and was found 35 cm from the incisors. The entire examined stomach was normal. There is a suggestion of mild indentation of the antrum by the cyst. Mild- min imal chronic antral gastritis no ulcers, tumors. normal retroflex view of the GE junction A mild extrinsic deformity was found in the first portion of the duodenum. duodenal mucosa was normal. EUS: large anechoic cyst seen adjacent to antrum and proximal duodenum- measured 10 x 8 cm no nodules, debris, etc. 19 ga sharkcore needle used to aspirate the cyst- 440 cc of clear watery fluid returned with resolution of the cyst sent for CEA, amylase liver: normal GB- not seen (previously removed) CBD- normal, portal vein, hepatic artery normal Pancreas- atrophic, no other cysts- solid lesions celiac area- normal no adenopathy Estimated Blood Loss: Estimated blood loss was minimal. Impression: - Normal esophagus. - Z-line regular, 35 cm from the incisors. - Normal stomach- other than mild chronic antral gastritis. - Duodenal deformity- due to pancreatic cyst- in proximal duodenum - Cyst in pancreatic head area- large-- 10 x 8 cm- benign appearing by EUS - aspirated 440 cc clear watery fluid with resolution of the cyst - No other abnormal findings on EUS Recommendation: - Discharge patient to home. - Resume previous diet today. - Continue present medications. - Await pathology results. - Return to my office in 2 weeks. - The patient is not currently taking anticoagulant or antiplatelet agents. Procedure Code(s): --- Professional --- 08471, Esophagogastroduodenoscopy, flexible, transoral; with transendoscopic ultrasound-guided intramural or transmural fine needle aspiration/biopsy(s) (includes endoscopic ultrasound examination of the esophagus, stomach, and either the duodenum or a surgically altered stomach where the jejunum is examined distal to the anastomosis) --- Technical --- 26930, Esophagogastroduodenoscopy, flexible, transoral; with transendoscopic ultrasound-guided intramural or transmural fine needle aspiration/biopsy(s) (includes endoscopic ultrasound examination of the esophagus, stomach, and either the duodenum or a surgically altered stomach where the jejunum is exami (more content not included)... Normal [facility] CNCOon 06-27-2024 CNCO Letter Text Normal [facility] Absolute neutrophil countOrd ered By: Cody Vanegas on 06-26-2024 Neutrophils (Bld) [#/Vol] 2.4 10*3/uL 2.0-7.7 [facility] Basophil percentageOrdered B y: Cody Vanegas on 06-26-2024 Basophils/100 WBC (Bld) 0.8 % 0-1 [facility] CBC W/Diff, Automatedon 06-02 Absolute Lymph 0.82 X10 3/uL Low 0.83-4.51 [facility] Comment on above: Performed By: #### L 100.0100 #### [facility] [address] [place], [address] Absolute Neut 2.4 X10 3/uL Normal 2.0-7.7 [facility] Comment on above: Performed By: #### L 100.0100 #### [facility] [address] [place], [address] Basophils/100 WBC (Bld) 0.8 % Normal 0-1 [facility] Comment on above: Performed By: #### L 100.0100 #### [facility] [address] [place], [address] Eosinophils/100 WBC (Bld) 1.4 % Normal 0-5 [facility] Comment on above: Performed By: #### L 100.0100 #### [facility] [address] [place], [address] Erythrocyte distribution width (RBC) [Ratio] 14.0 % Normal 11.6-14.6 [facility] Comment on above: Performed By: #### L 100.0100 #### [facility] [address] [place], [address] Hematocrit (Bld) [Volume fraction] 41.5 % Normal 37-47 [facility] Comment on above: Performed By: #### L 100.0100 #### [facility] [address] [place], [address] Hemoglobin (Bld) [Mass/Vol] 13.1 g/dL Normal 12.0-15.0 [facility] Comment on above: Performed By: #### L 100.0100 #### [facility] [address] [place], [address] IG% 1.100 High 0.0-0.9 [facility] Comment on above: Result Comment: IG% - Immature Granulocytes (promyelocytes, myelocytes and metamyelocytes) > 1% indicates that a LEFT SHIFT is Present. Performed By: #### L 100.0100 #### [facility] [address] [place], [address] Lymphocytes/100 WBC (Bld) 22.2 % Normal 19-41 [facility] Comment on above: Performed By: #### L 100.0100 #### [facility] [address] [place], [address] MCH (RBC) [Entitic mass] 33.6 pg High 27.0-32.0 [facility] Comment on above: Performed By: #### L 100.0100 #### [facility] [address] [place], [address] MCHC (RBC) [Mass/Vol] 31.6 g/dL Low 32-36 [facility] Comment on above: Performed By: #### L 100.0100 #### [facility] [address] [place], [address] MCV (RBC) [Entitic vol] 106.4 fL High 81-99 [facility] Comment on above: Performed By: #### L 100.0100 #### [facility] [address] [place], [address] Monocytes/100 WBC (Bld) 9.2 % Normal 0-10 [facility] Comment on above: Performed By: #### L 100.0100 #### [facility] [address] [place], [address] Neutrophils/100 WBC (Bld) 65.3 % Normal 47-70 [facility] Comment on above: Performed By: #### L 100.0100 #### [facility] [address] [place], [address] Nucleated RBC (Bld) [#/Vol] 0 10*3/uL Normal 0-5 [facility] Comment on above: Performed By: #### L 100.0100 #### [facility] [address] [place], [address] Platelet mean volume (Bld) [Entitic vol] 9.2 fL Normal 6.2-12.0 [facility] Comment on above: Performed By: #### L 100.0100 #### [facility] [address] [place], [address] Platelets (Bld) [#/Vol] 330 10*3/uL Normal 150-450 [facility] Comment on above: Performed By: #### L 100.0100 #### [facility] [address] [place], [address] RBC (Bld) [#/Vol] 3.90 10*6/uL Low 4.2-5.4 [facility] Comment on above: Performed By: #### L 100.0100 #### [facility] [address] [place], [address] RDW SD 54.3 fl High 35.1-43.9 [facility] Comment on above: Performed By: #### L 100.0100 #### [facility] [address] [place], [address] WBC (Bld) [#/Vol] 3.7 10*3/uL Low 4.4-11.0 [facility] Comment on above: Performed By: #### L 100.0100 #### [facility] [address] [place], [address] Eosinophil percentageOrdered By: Cody Vanegas on 06-26-2024 Eosinophils/100 WBC (Bld) 1.4 % 0-5 [facility] Erythrocyte distribution wid th ratioOrdered By: Cody Vanegas on 06-26-2024 Erythrocyte distribution width (RBC) [Ratio] 14.0 % 11.6-14.6 [facility] Erythrocyte distribution wid th standard deviationOrdered By: Cody Vanegas on 06-26-2024 Erythrocyte distribution width (RBC) [Entitic vol] 54.3 fL High 35.1-43.9 [facility] Hematocrit Auto (Bld) [Volum e fraction]Ordered By: Cody Vanegas on 06-26-2024 Hematocrit (Bld) [Volume fraction] 41.5 % 37-47 [facility] Hemoglobin measurementOrdere d By: Cody Vanegas on 06-26-2024 Hemoglobin (Bld) [Mass/Vol] 13.1 g/dL 12.0-15.0 [facility] Immature granulocytes/100 WB C Auto (Bld)Ordered By: Cody Vanegas on 06-26-2024 Immature granulocytes/100 WBC (Bld) 1.100 % High 0.0-0.9 [facility] Comment on above: IG% - Immature Granu locytes (promyelocytes, myelocytes and metamyelocytes) > 1% indicates that a LEFT SHIFT is Present. Lymphocytes Auto (Unsp spec) [#/Vol]Ordered By: Cody Vanegas on 06-26-2024 Lymphocytes (Bld) [#/Vol] 0.82 10*3/uL Low 0.83-4.51 [facility] Lymphocytes/100 WBC Auto (Un sp spec)Ordered By: Cody Vanegas on 06-26-2024 Lymphocytes/100 WBC (Bld) 22.2 % 19-41 [facility] MCV (mean corpuscular volume ) determinationOrdered By: Cody Vanegas on 06-26-2024 MCV (RBC) [Entitic vol] 106.4 fL High 81-99 [facility] Mean corpuscular hemoglobin (MCH) determinationOrdered By: Cody Vanegas on 06-26-2024 MCH (RBC) [Entitic mass] 33.6 pg High 27.0-32.0 [facility] Mean corpuscular hemoglobin concentration (MCHC) determinationOrdered By: Cody Vanegas on 06-26-2024 MCHC (RBC) [Mass/Vol] 31.6 g/dL Low 32-36 [facility] Mean platelet volume determi nationOrdered By: Cody Vanegas on 06-26-2024 Platelet mean volume (Bld) [Entitic vol] 9.2 fL 6.2-12.0 [facility] Monocyte percentageOrdered B y: Cody Vanegas on 06-26-2024 Monocytes/100 WBC (Bld) 9.2 % 0-10 [facility] Neutrophil percentageOrdered By: Cody Vanegas on 06-26-2024 Neutrophils/100 WBC (Bld) 65.3 % 47-70 [facility] Nucleated red blood cell per centageOrdered By: Cody Vanegas on 06-26-2024 Nucleated RBC/100 WBC (Bld) [Ratio] 0 % 0-5 [facility] Platelet countOrdered By: Alice Vanegas on 06-26-2024 Platelets (Bld) [#/Vol] 330 10*3/uL 150-450 [facility] RBC Auto (Bld) [#/Vol]Ordere d By: Cody Vanegas on 06-26-2024 RBC (Bld) [#/Vol] 3.90 10*6/uL Low 4.2-5.4 [facility] White blood cell (WBC) count Ordered By: Cody Vanegas on 06-26-2024 WBC (Bld) [#/Vol] 3.7 10*3/uL Low 4.4-11.0 [facility] Absolute neutrophil countOrd ered By: Cody Vanegas on 05-27-2024 Neutrophils (Bld) [#/Vol] 3.0 10*3/uL 2.0-7.7 [facility] Basophil percentageOrdered B y: Cody Vanegas on 05-27-2024 Basophils/100 WBC (Bld) 0.6 % 0-1 [facility] CBC W/Diff, Automatedon 05-03 Absolute Lymph 1.00 X10 3/uL Normal 0.83-4.51 [facility] Comment on above: Performed By: #### L 503.6150, L501.9520, L500.4050, L503.6550, L100.0100 #### [facility] [address] [place], [address] Absolute Neut 3.0 X10 3/uL Normal 2.0-7.7 [facility] Comment on above: Performed By: #### L 503.6150, L501.9520, L500.4050, L503.6550, L100.0100 #### [facility] [address] [place], [address] Basophils/100 WBC (Bld) 0.6 % Normal 0-1 [facility] Comment on above: Performed By: #### L 503.6150, L501.9520, L500.4050, L503.6550, L100.0100 #### [facility] [address] [place], [address] Eosinophils/100 WBC (Bld) 1.7 % Normal 0-5 [facility] Comment on above: Performed By: #### L 503.6150, L501.9520, L500.4050, L503.6550, L100.0100 #### [facility] [address] [place], [address] Erythrocyte distribution width (RBC) [Ratio] 13.5 % Normal 11.6-14.6 [facility] Comment on above: Performed By: #### L 503.6150, L501.9520, L500.4050, L503.6550, L100.0100 #### [facility] [address] [place], [address] Hematocrit (Bld) [Volume fraction] 41.2 % Normal 37-47 [facility] Comment on above: Performed By: #### L 503.6150, L501.9520, L500.4050, L503.6550, L100.0100 #### [facility] [address] [place], [address] Hemoglobin (Bld) [Mass/Vol] 13.6 g/dL Normal 12.0-15.0 [facility] Comment on above: Performed By: #### L 503.6150, L501.9520, L500.4050, L503.6550, L100.0100 #### [facility] [address] [place], [address] IG% 0.200 Normal 0.0-0.9 [facility] Comment on above: Result Comment: IG% - Immature Granulocytes (promyelocytes, myelocytes and metamyelocytes) > 1% indicates that a LEFT SHIFT is Present. Performed By: #### L 503.6150, L501.9520, L500.4050, L503.6550, L100.0100 #### [facility] [address] [place], [address] Lymphocytes/100 WBC (Bld) 21.5 % Normal 19-41 [facility] Comment on above: Performed By: #### L 503.6150, L501.9520, L500.4050, L503.6550, L100.0100 #### [facility] [address] [place], [address] MCH (RBC) [Entitic mass] 34.4 pg High 27.0-32.0 [facility] Comment on above: Performed By: #### L 503.6150, L501.9520, L500.4050, L503.6550, L100.0100 #### [facility] [address] [place], [address] MCHC (RBC) [Mass/Vol] 33.0 g/dL Normal 32-36 [facility] Comment on above: Performed By: #### L 503.6150, L501.9520, L500.4050, L503.6550, L100.0100 #### [facility] [address] [place], [address] MCV (RBC) [Entitic vol] 104.3 fL High 81-99 [facility] Comment on above: Performed By: #### L 503.6150, L501.9520, L500.4050, L503.6550, L100.0100 #### [facility] [address] [place], [address] Monocytes/100 WBC (Bld) 12.4 % High 0-10 [facility] Comment on above: Performed By: #### L 503.6150, L501.9520, L500.4050, L503.6550, L100.0100 #### [facility] [address] [place], [address] Neutrophils/100 WBC (Bld) 63.6 % Normal 47-70 [facility] Comment on above: Performed By: #### L 503.6150, L501.9520, L500.4050, L503.6550, L100.0100 #### [facility] [address] [place], [address] Nucleated RBC (Bld) [#/Vol] 0 10*3/uL Normal 0-5 [facility] Comment on above: Performed By: #### L 503.6150, L501.9520, L500.4050, L503.6550, L100.0100 #### [facility] [address] [place], [address] Platelet mean volume (Bld) [Entitic vol] 9.1 fL Normal 6.2-12.0 [facility] Comment on above: Performed By: #### L 503.6150, L501.9520, L500.4050, L503.6550, L100.0100 #### [facility] [address] [place], [address] Platelets (Bld) [#/Vol] 355 10*3/uL Normal 150-450 [facility] Comment on above: Performed By: #### L 503.6150, L501.9520, L500.4050, L503.6550, L100.0100 #### [facility] [address] [place], [address] RBC (Bld) [#/Vol] 3.95 10*6/uL Low 4.2-5.4 [facility] Comment on above: Performed By: #### L 503.6150, L501.9520, L500.4050, L503.6550, L100.0100 #### [facility] [address] [place], [address] RDW SD 51.7 fl High 35.1-43.9 [facility] Comment on above: Performed By: #### L 503.6150, L501.9520, L500.4050, L503.6550, L100.0100 #### [facility] [address] [place], [address] WBC (Bld) [#/Vol] 4.7 10*3/uL Normal 4.4-11.0 [facility] Comment on above: Performed By: #### L 503.6150, L501.9520, L500.4050, L503.6550, L100.0100 #### [facility] [address] [place], [address] Eosinophil percentageOrdered By: Cody Vanegas on 05-27-2024 Eosinophils/100 WBC (Bld) 1.7 % 0-5 [facility] Erythrocyte distribution wid th ratioOrdered By: Cody Vanegas on 05-27-2024 Erythrocyte distribution width (RBC) [Ratio] 13.5 % 11.6-14.6 [facility] Erythrocyte distribution wid th standard deviationOrdered By: Cody Vanegas on 05-27-2024 Erythrocyte distribution width (RBC) [Entitic vol] 51.7 fL High 35.1-43.9 [facility] Hematocrit Auto (Bld) [Volum e fraction]Ordered By: Cody Vanegas on 05-27-2024 Hematocrit (Bld) [Volume fraction] 41.2 % 37-47 [facility] Hemoglobin measurementOrdere d By: Cody Vanegas on 05-27-2024 Hemoglobin (Bld) [Mass/Vol] 13.6 g/dL 12.0-15.0 [facility] Immature granulocytes/100 WB C Auto (Bld)Ordered By: Cody Vanegas on 05-27-2024 Immature granulocytes/100 WBC (Bld) 0.200 % 0.0-0.9 [facility] Comment on above: IG% - Immature Granu locytes (promyelocytes, myelocytes and metamyelocytes) > 1% indicates that a LEFT SHIFT is Present. Lymphocytes Auto (Unsp spec) [#/Vol]Ordered By: Cody Vanegas on 05-27-2024 Lymphocytes (Bld) [#/Vol] 1.00 10*3/uL 0.83-4.51 [facility] Lymphocytes/100 WBC Auto (Un sp spec)Ordered By: Cody Vanegas on 05-27-2024 Lymphocytes/100 WBC (Bld) 21.5 % 19-41 [facility] MCV (mean corpuscular volume ) determinationOrdered By: Cody Vanegas on 05-27-2024 MCV (RBC) [Entitic vol] 104.3 fL High 81-99 [facility] Mean corpuscular hemoglobin (MCH) determinationOrdered By: Cody Vanegas on 05-27-2024 MCH (RBC) [Entitic mass] 34.4 pg High 27.0-32.0 [facility] Mean corpuscular hemoglobin concentration (MCHC) determinationOrdered By: Cody Vanegas on 05-27-2024 MCHC (RBC) [Mass/Vol] 33.0 g/dL 32-36 [facility] Mean platelet volume determi nationOrdered By: Cody Vanegas on 05-27-2024 Platelet mean volume (Bld) [Entitic vol] 9.1 fL 6.2-12.0 [facility] Monocyte percentageOrdered B y: Cody Vanegas on 05-27-2024 Monocytes/100 WBC (Bld) 12.4 % High 0-10 [facility] NCS and/or EMG Patienton NCS and/or EMG Patient [facility] Pulmonary Services/Neurology [address] [place] [address] MR#: [id number] Acct: [id number] Name: KELLIE HUDSON Rep #: [id number] : 1935 88 From: Dodie Estrada MD Referring Dr: Cody Vanegas DO Status: REG CLI Location: PSN Date: 05/27/24 Sex: F C NCS and/or EMG Patient Report Ordering Doctor: Cody Vanegas DATE OF SERVICE: 05/27/24 Clinical Summary: 88 year old female patient with symptoms of tightness/discomfort in her legs from the knee down to her feet. Nerve Conduction Studies Summary: Nerve conduction studies of the right lower extremity were within normal ranges for the patient's age. Needle Examination Summary: Needle examination of select muscles of the right lower extremity was normal. Impression: This is a normal electrodiagnostic study of the right lower extremity. There is no electrodiagnostic evidence of a large-fiber peripheral neuropathy, lumbosacral radiculopathy, or peroneal mononeuropathy in the right lower extremity. Multi Select Codes Neurology Neurology Interp Codes: 70987-08 Musc test done w/n test comp (interp) (1) and 18435-95 Nrv cndj tst 3-4 studies (interp) 05/27/24 1238 Date Dodie Estrada MD CC: Dr. Dodie Estrada MD; Dr. Cody Vanegas DO Date Dictated: 05/27/24 1051 Date Transcribed: 05/27/24 105 Dye Blender: Signed Normal [facility] Neutrophil percentageOrdered By: Cody Vanegas on 05-27-2024 Neutrophils/100 WBC (Bld) 63.6 % 47-70 [facility] Nucleated red blood cell per centageOrdered By: Cody Michael on 05-27-2024 Nucleated RBC/100 WBC (Bld) [Ratio] 0 % 0-5 [facility] Platelet countOrdered By: Alice Vanegas on 05-27-2024 Platelets (Bld) [#/Vol] 355 10*3/uL 150-450 [facility] RBC Auto (Bld) [#/Vol]Ordere d By: Cody Vanegas on 05-27-2024 RBC (Bld) [#/Vol] 3.95 10*6/uL Low 4.2-5.4 [facility] White blood cell (WBC) count Ordered By: Cody Vanegas on 05-27-2024 WBC (Bld) [#/Vol] 4.7 10*3/uL 4.4-11.0 [facility] (AGGENS3) KELLIE HUDSON ([id number]) 1935 F Date Time Provider Department 05/23/24 Sd ROBLERO AGG3 During your visit today, we recorded the following information about you: Miranda Aguilera 05/23/2024 11:37 AM Signed Pt is wondering is her cyst can burst if she goes to a chiropractor? Per Dr. Roblero it would be very unlikely. Spoke to pt, she understands. Miranda Aguilera May 23, 2024 11:36 AM Allergies As of Date: 05/23/2024 Noted Allergy Reaction CIPROFLOXACIN 08/29/2010 2 - Rash Comments: Itching and rash AMOXICILLIN 07/07/2008 8 - GI Upset BIAXIN (CLARITHROMYCIN) 06/07/2009 8 - GI Upset ATORVASTATIN 04/20/2018 17 - Myalgia SODIUM PENTATHAL (THIOPENTAL) 08/29/2010 8 - GI Upset Comments: Heavy vomiting Date Reviewed: 05/19/2024 Reviewed by: Hermelinda Vitale MA - Fully Assessed Prescriptions as of 05/23/2024 - inulin (FIBER GUMMIES ORAL) Take by mouth. - hydroxyurea (HYDREA) 500 mg capsule Take 1 capsule by mouth once daily. - multivitamin/iron/folic acid (CENTRUM WOMEN ORAL) Take 1 tablet by mouth once daily. - bevacizumab ophthalmic (AVASTIN) 1.25 mg/0.05 mL syringe One injection in left eye every 12 weeks. - betamethasone dipropionate 0.05 % ointment Apply 1 application to affected area as needed. - metoprolol succinate ER (TOPROL XL) 25 mg 24 hr tablet Take 1/2 tablet by mouth once daily. - Magnesium Oxide 500 mg tab Take 500 mg by mouth once daily. - ubidecarenone Q-10 (CO Q-10) 10 mg cap Take two capsules by mouth once daily. - INULIN (FIBER SELECT GUMMIES ORAL) Take 2 capsules by mouth once daily. - docusate sodium (STOOL SOFTENER) 100 mg capsule Take 100 mg by mouth three times daily as needed. - ergocalciferol, vitamin D2, (VITAMIN D) 50,000 unit capsule Take one capsule every two weeks. - CALCIUM CITRATE (CITRACAL ORAL) Take 1 tablet by mouth twice daily. - ZOLEDRONIC ACID/MANNITOLANDWATER (RECLAST INTRAVEN.) Inject intravenously. Infusion every 2 years. - Cholecalciferol, Vitamin D3, (VITAMIN D) 1,000 unit Tab Take 1,000 Units by mouth once daily. - PROAIR HFA 90 mcg/actuation inhaler Inhale 2 Puffs as instructed every 4 hours as needed. - MINERAL OIL/HYDROPHIL PETROLAT (AQUAPHOR TOPICAL) Apply to affected area. as needed - BACITRACIN/POLYMYXIN B SULFATE (POLYSPORIN TOPICAL) Apply to affected area. as needed. - FLUTICASONE 50 MCG/ACTUATION NASAL SPRAY, SUSP Two sprays in each nostril twice daily as needed. Problem List As Of Date 05/23/2024 Noted Resolved LICHEN SCLEROSIS///CIRCUMSCRIBE SCLERODERMA [L9*06/04/2006 Scar condition and fibrosis of skin [L90.5] 06/04/2006 11/10/2012 Dyschromia, unspecified [L81.9] 06/04/2006 11/03/2011 Seborrheic Keratosis [L82.1] 06/17/2007 ACTINIC DAMAGE///CHR SOLAR SKIN DAMAGE NOS [L57*07/08/2008 11/03/2011 SOLAR LENTIGINES///DYSCHROMIA OTHER [L81.9] 07/08/2008 11/03/2011 Neoplasm of uncertain behavior of skin [D48.5] 09/02/2009 11/03/2011 Other and unspecified malignant neoplasm of ski*09/02/2009 11/10/2012 BCC (Basal Cell Carcinoma), Face [C44.310] 09/02/2009 Open wound site NOS [T14.8XXA] 11/03/2009 11/03/2011 H/O Malignant Neoplasm of Skin: L cheek face: B*01/10/2010 Foreign Body Granuloma of Skin: Acne type [L92.*01/10/2010 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 Skin tags 05/23/2010 11/10/2012 Melanocytic nevus of trunk: occasional intrader*08/30/2010 [place] angiomas [D18.01] 08/30/2010 Actinic Keratosis: Premalignant AK [L57.0] 04/16/2011 Irritated//Inflamed Seborrheic Keratosis [L82.0]04/16/2011 Eczematous dermatitis [L30.9] 04/16/2011 Pseudofolliculitis [L73.8] 04/16/2011 Lichenified eczema [L28.0] 04/16/2011 Surgical Scars [L90.5] 04/16/2011 Solar Lentigines [L81.4] 04/16/2011 Actinic skin damage [L57.8] 04/16/2011 Xerosis cutis [L85.3] 04/16/2011 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/05/2011 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] 06/05/2011 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/03/2011 Neurodermatitis [L28.0] 11/03/2011 Skin tag [L91.8] 11/03/2011 Folliculitis [L73.9] 11/03/2011 Excoriation [T14.8XXA] 11/03/2011 Pyoderma, unspecified [L08.0] 11/03/2011 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] 05/20/2012 Open wound of unspecified site (L mid ant lower*08/09/2012 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 Pruritus [L29.9] 11/10/2012 Viral warts, unspecified [B07.9] 11/11/2012 Lichenification and lichen simplex chronicus [L*11/11/2012 Contact dermatitis and other eczema, due to uns*11/11/2012 Other and unspecified superficial injury of oth*11/11/2012 Other specified disease of hair and hair follic*11/11/2012 LSC (lichen simplex chronicus) [L28.0] 01/18/2014 Pancreas cyst [K86.2] 01/05/2020 Encounter Status:Closed by MIRANDA AGUILERA on 05/23/24 [facility] CNOVon 05-19-2024 CNOV Office Visit (AGGHWB ) KELLIE HUDSON ([id number]) 1935 F Date Time Provider Department 05/19/24 9:00 AM Sd ROBLERO AGGHWB During your visit today, we recorded the following information about you: Pulse Blood pressure Weight Height 76/minute 123/69 56 kg 1.499 m Sd Roblero MD 05/19/2024 12:11 PM Signed Keith Roblero MD General Surgery [address] [place] [address], [address] [place] [address] Patient referred by: No referring provider defined for this encounter. 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 Has been known for several years but has increased in size since 2019. At that time she had a fairly large cyst in the head of the pancreas-it measured about 8 cm in size. There were no solid nodules or other features concerning for malignancy. She did undergo an EUS and FNA in December 2019. CEA level in the fluid was 937. 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 Her most recent CT scan shows it has increased in size to 11 cm. She does have some abdominal symptoms which prompted her recent scan. She describes fullness and bloating. She feels constipated. She does take some stool softener to try and help with this but this does not seem to improve her symptoms. She does not have epigastric pain, nausea or vomiting. Her weight is stable. She does not describe any back pain or jaundice. She did have a history of bleeding ulcers which were NSAID related. Recent problems with this She also describes lower abdominal numbness skin and some numbness in her right lower leg. Feels that this is worse over the last few months. Her previous surgical history includes a cholecystectomy and a right colectomy done for a polyp. She does have an umbilical hernia which is reducible SUBJECTIVE Review of Systems Constitutional: Negative. HENT: Negative. Eyes: Negative. Respiratory: Negative. Cardiovascular: Negative. Gastrointestinal: See HPI Genitourinary: Negative. Musculoskeletal: Negative. Skin: Negative. Neurological: See HPI Endo/Heme/Allergies: Negative. Psychiatric/Behavioral: Negative. 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 Reflux PAST SURGICAL HISTORY Procedure Laterality Date BREAST BIOPSY not sure which side, negative CHOLECYSTECTOMY 08/22/2010 COLONOSCOPY 2005 [facility] 07/14/2008 partial right shoulder replacement EGD W/EUS AND FNA/BX 01/28/2020 fna suggests a mucinous cystic neoplasm, cea elevated, hiatal hernia, fundic gland polyps, surgery consult GASTROTOMY W/SUTURE REPAIR BLEEDING ULCER 12/2022 PAST SURGICAL HISTORY OF 1993 right colectomy PAST SURGICAL HISTORY OF bilateral hips PAST SURGICAL HISTORY OF 05/2011 Repair of middle right trigger finger PAST SURGICAL HISTORY OF left thumb repair PAST SURGICAL HISTORY OF 04/23/2013 Left hip surgery SKIN BX, 1 LESION Skin biopsy lichen schlorsis Social History Tobacco Use Smoking status: Never Smokeless tobacco: Never Vaping Use Vaping status: Never Used Substance Use Topics Alcohol use: No Drug use: No FAMILY HISTORY Problem Relation Age of Onset Osteoporosis Mother Diabetes Father Coronary Artery Disease Father Diabetes Brother ALLERGIES Allergen Reactions Ciprofloxacin Rash Itching and rash Amoxicillin GI Upset Biaxin [Clarithromy* GI Upset Atorvastatin Myalgia Sodium Pentathal [T* GI Upset Heavy vomiting Current Outpatient Medications Medication Sig inulin (FIBER GUMMIES ORAL) Take by mouth. hydroxyurea (HYDREA) 500 mg capsule Take 1 capsule by mouth once daily. multivitamin/iron/folic acid (CENTRUM WOMEN ORAL) Take 1 tablet by mouth once daily. bevacizumab ophthalmic (AVASTIN) 1.25 mg/0.05 mL syringe [...] unit Tab Take 1,000 Units by mouth (more content not included)... Normal [facility] Dexa Bone Density Studyon Dexa Bone Density Study [facility] Imaging Services [address] [place] [id number] Dexa Bone Density Study MR#: [id number] Acct: [id number] Name: KELLIE HUDSON Rep #: [id number] : 1935 F 88 From: Avelino meyer MD PCP: Dr. Cody Vanegas DO Status: REG CLI Study: Dexa Bone Density Study Date of Exam: 05/08/24 Exam# [id number] Ordering Dr: Cody Vanegas DO :[id number] STUDY: DUAL ENERGY X-RAY ABSORPTIOMETRY / DXA REASON FOR EXAM: Female, 88 years old. 733.00OsteoporosisBONE DENSITY REASON FOR EXAM TECHNIQUE: Bone Mineral Density (BMD) measurements of lumbar spine and right forearm were obtained. COMPARISON: None. FINDINGS: Lumbar Spine (L1-L4): g/cm2 (0.847) / T-score (-1.8) / Z-score (1.1) Findings are suggestive of osteopenia with a moderate fracture risk. Right Forearm: g/cm2 (0.379) / T-score (-3.7) / Z-score ( ) BD/Dexa Bone Density Study IMPRESSION: The patient is considered osteoporotic as outlined below according to World Moncho Organization (WHO) criteria with a high fracture risk. Reference Information: The T-score is the number of standard deviations above or below the standard which is normal for young adults at their peak bone mineral density. The World Health Organization (WHO) interprets the T-scores as follows: Above -1 Normal bone density Between -1 and -2.5 Osteopenia Equal to / or below -2.5 Osteoporosis As a practical clinical guideline, osteopenia may be graded as follows: Mild -1 through -1.5 Moderate -1.6 through -2.0 Severe -2.1 through -2.4 The Z-score is the number of standard deviations above or below age-matched controls. A Z-score of less than -1.5 would be considered abnormal. References: 1. NIH Osteoporosis and Related Bone Diseases www osteo.org 2. International Society for Clinical Densitometry www iscd.org 3. National Osteoporosis Foundation www nof.org Electronically Signed: Avelino Mclain MD at 15:33 EST , CC: Dr. Cody Vanegas, DO Dye Blender: Signed Normal [facility] CBC W/Diff, Automatedon 10-3 Absolute Lymph 0.78 X10 3/uL Low 0.83-4.51 [facility] Comment on above: Performed By: #### L 503.6150, L501.9520, L500.4050, L503.6550, L100.0100 #### [facility] [address] [place], [address] Absolute Neut 2.4 X10 3/uL Normal 2.0-7.7 [facility] Comment on above: Performed By: #### L 503.6150, L501.9520, L500.4050, L503.6550, L100.0100 #### [facility] [address] [place], [address] Basophils/100 WBC (Bld) 0.8 % Normal 0-1 [facility] Comment on above: Performed By: #### L 503.6150, L501.9520, L500.4050, L503.6550, L100.0100 #### [facility] [address] [place], [address] Eosinophils/100 WBC (Bld) 1.3 % Normal 0-5 [facility] Comment on above: Performed By: #### L 503.6150, L501.9520, L500.4050, L503.6550, L100.0100 #### [facility] [address] [place], [address] Erythrocyte distribution width (RBC) [Ratio] 13.8 % Normal 11.6-14.6 [facility] Comment on above: Performed By: #### L 503.6150, L501.9520, L500.4050, L503.6550, L100.0100 #### [facility] [address] [place], [address] Hematocrit (Bld) [Volume fraction] 41.8 % Normal 37-47 [facility] Comment on above: Performed By: #### L 503.6150, L501.9520, L500.4050, L503.6550, L100.0100 #### [facility] [address] [place], [address] Hemoglobin (Bld) [Mass/Vol] 13.7 g/dL Normal 12.0-15.0 [facility] Comment on above: Performed By: #### L 503.6150, L501.9520, L500.4050, L503.6550, L100.0100 #### [facility] [address] [place], [address] IG% 0.300 Normal 0.0-0.9 [facility] Comment on above: Result Comment: IG% - Immature Granulocytes (promyelocytes, myelocytes and metamyelocytes) > 1% indicates that a LEFT SHIFT is Present. Performed By: #### L 503.6150, L501.9520, L500.4050, L503.6550, L100.0100 #### [facility] [address] [place], [address] Lymphocytes/100 WBC (Bld) 20.9 % Normal 19-41 [facility] Comment on above: Performed By: #### L 503.6150, L501.9520, L500.4050, L503.6550, L100.0100 #### [facility] [address] [place], [address] MCH (RBC) [Entitic mass] 34.7 pg High 27.0-32.0 [facility] Comment on above: Performed By: #### L 503.6150, L501.9520, L500.4050, L503.6550, L100.0100 #### [facility] [address] [place], [address] MCHC (RBC) [Mass/Vol] 32.8 g/dL Normal 32-36 [facility] Comment on above: Performed By: #### L 503.6150, L501.9520, L500.4050, L503.6550, L100.0100 #### [facility] [address] [place], [address] MCV (RBC) [Entitic vol] 105.8 fL High 81-99 [facility] Comment on above: Performed By: #### L 503.6150, L501.9520, L500.4050, L503.6550, L100.0100 #### [facility] [address] [place], [address] Monocytes/100 WBC (Bld) 11.3 % High 0-10 [facility] Comment on above: Performed By: #### L 503.6150, L501.9520, L500.4050, L503.6550, L100.0100 #### [facility] [address] [place], [address] Neutrophils/100 WBC (Bld) 65.4 % Normal 47-70 [facility] Comment on above: Performed By: #### L 503.6150, L501.9520, L500.4050, L503.6550, L100.0100 #### [facility] [address] [place], [address] Nucleated RBC (Bld) [#/Vol] 0 10*3/uL Normal 0-5 [facility] Comment on above: Performed By: #### L 503.6150, L501.9520, L500.4050, L503.6550, L100.0100 #### [facility] [address] [place], [address] Platelet mean volume (Bld) [Entitic vol] 9.5 fL Normal 6.2-12.0 [facility] Comment on above: Performed By: #### L 503.6150, L501.9520, L500.4050, L503.6550, L100.0100 #### [facility] [address] [place], [address] Platelets (Bld) [#/Vol] 358 10*3/uL Normal 150-450 [facility] Comment on above: Performed By: #### L 503.6150, L501.9520, L500.4050, L503.6550, L100.0100 #### [facility] [address] [place], [address] RBC (Bld) [#/Vol] 3.95 10*6/uL Low 4.2-5.4 [facility] Comment on above: Performed By: #### L 503.6150, L501.9520, L500.4050, L503.6550, L100.0100 #### [facility] [address] [place], [address] RDW SD 54.1 fl High 35.1-43.9 [facility] Comment on above: Performed By: #### L 503.6150, L501.9520, L500.4050, L503.6550, L100.0100 #### [facility] [address] [place], [address] WBC (Bld) [#/Vol] 3.7 10*3/uL Low 4.4-11.0 [facility] Comment on above: Performed By: #### L 503.6150, L501.9520, L500.4050, L503.6550, L100.0100 #### [facility] [address] [place], [address] Comprehensive Metabolic Prof ilon 05-01-2024 Albumin [Mass/Vol] 3.4 g/dL Normal 3.2-5.0 [facility] Comment on above: Performed By: #### L 503.6150, L501.9520, L500.4050, L503.6550, L100.0100 #### [facility] [address] [place], [address] Albumin/Globulin [Mass ratio] 1.2 {ratio} Normal 0.9-2.4 [facility] Comment on above: Performed By: #### L 503.6150, L501.9520, L500.4050, L503.6550, L100.0100 #### [facility] [address] [place], [address] ALK P 108 U/L Normal 45-117 [facility] Comment on above: Performed By: #### L 503.6150, L501.9520, L500.4050, L503.6550, L100.0100 #### [facility] [address] [place], [address] ALT [Catalytic activity/Vol] 23 U/L Normal 13-56 [facility] Comment on above: Performed By: #### L 503.6150, L501.9520, L500.4050, L503.6550, L100.0100 #### [facility] [address] [place], [address] AST [Catalytic activity/Vol] 15 U/L Normal 15-37 [facility] Comment on above: Performed By: #### L 503.6150, L501.9520, L500.4050, L503.6550, L100.0100 #### [facility] [address] [place], [address] Bilirubin [Mass/Vol] 0.40 mg/dL Normal 0.20-1.00 [facility] Comment on above: Result Comment: For patients on eltrombopag therapy, use of Dimension [place] TBIL is not recommended. Performed By: #### L 503.6150, L501.9520, L500.4050, L503.6550, L100.0100 #### [facility] [address] [place], [address] BUN/CRE 35.9 RATIO High 10-20 [facility] Comment on above: Performed By: #### L 503.6150, L501.9520, L500.4050, L503.6550, L100.0100 #### [facility] [address] [place], [address] CA,Total 8.9 mg/dL Normal 8.5-10.1 [facility] Comment on above: Performed By: #### L 503.6150, L501.9520, L500.4050, L503.6550, L100.0100 #### [facility] [address] [place], [address] Chloride [Moles/Vol] 106 mmol/L Normal 98-107 [facility] Comment on above: Performed By: #### L 503.6150, L501.9520, L500.4050, L503.6550, L100.0100 #### [facility] [address] [place], [address] CO2 [Moles/Vol] 26.0 mmol/L Normal 21.0-32.0 [facility] Comment on above: Performed By: #### L 503.6150, L501.9520, L500.4050, L503.6550, L100.0100 #### [facility] [address] [place], [address] Creatinine [Mass/Vol] 0.56 mg/dL Normal 0.55-1.02 [facility] Comment on above: Result Comment: The validity of the calculated GFR GFRAA in patients over 70 years has not been determined. Clinical correlation is essential. Performed By: #### L 503.6150, L501.9520, L500.4050, L503.6550, L100.0100 #### [facility] [address] [place], [address] EST GFR - AA 132 mL/min Normal >60 [facility] Comment on above: Result Comment: Afri can Maltese GFR Calc Performed By: #### L 503.6150, L501.9520, L500.4050, L503.6550, L100.0100 #### [facility] [address] [place], [address] GAP 5 Normal 5-15 [facility] Comment on above: Performed By: #### L 503.6150, L501.9520, L500.4050, L503.6550, L100.0100 #### [facility] [address] [place], [address] GFR/1.73 sq M.predicted among non-blacks MDRD (S/P/Bld) [Vol rate/Area] 109 mL/min/{1.73_m2} Normal >60 [facility] Comment on above: Result Comment: Non- GFR Calc Performed By: #### L 503.6150, L501.9520, L500.4050, L503.6550, L100.0100 #### [facility] [address] [place], [address] Globulin (S) [Mass/Vol] 2.9 g/dL Normal 2.2-4.2 [facility] Comment on above: Performed By: #### L 503.6150, L501.9520, L500.4050, L503.6550, L100.0100 #### [facility] [address] [place], [address] Glucose [Mass/Vol] 87 mg/dL Normal 74-106 [facility] Comment on above: Performed By: #### L 503.6150, L501.9520, L500.4050, L503.6550, L100.0100 #### [facility] [address] [place], [address] Potassium [Moles/Vol] 3.8 mmol/L Normal 3.5-5.1 [facility] Comment on above: Performed By: #### L 503.6150, L501.9520, L500.4050, L503.6550, L100.0100 #### [facility] [address] [place], [address] Sodium [Moles/Vol] 138 mmol/L Normal 136-145 [facility] Comment on above: Performed By: #### L 503.6150, L501.9520, L500.4050, L503.6550, L100.0100 #### [facility] [address] [place], [address] T PROT 6.3 g/dL Low 6.4-8.2 [facility] Comment on above: Performed By: #### L 503.6150, L501.9520, L500.4050, L503.6550, L100.0100 #### [facility] [address] [place], [address] Urea nitrogen [Mass/Vol] 20 mg/dL High 7-18 [facility] Comment on above: Performed By: #### L 503.6150, L501.9520, L500.4050, L503.6550, L100.0100 #### [facility] [address] [place], [address] Thyroid Stim Hormone (TSH)on 05-01-2024 TSH 2.050 uIU/mL Normal 0.358-3.74 0 [facility] Comment on above: Performed By: #### L 503.6150, L501.9520, L500.4050, L503.6550, L100.0100 #### [facility] [address] [place], [address] Vitamin B12on 05-01-2024 Cobalamin (Vitamin B12) [Mass/Vol] 1307 pg/mL High 211-911 [facility] Comment on above: Performed By: #### L 503.6150, L501.9520, L500.4050, L503.6550, L100.0100 #### [facility] [address] [place], [address] Abdomen/Pel W ORAL Cont Only on 04-09-2024 Abdomen/Pel W ORAL Cont Only [facility] Imaging Services [address] [place] [address] Abdomen/Pel W ORAL Cont Only MR#: [id number] Acct: [id number] Name: KELLIE HUDSON Rep #: [id number] : 1935 F 88 From: Avelino meyer MD PCP: Dr. Cody Vanegas, Status: REG CL Study: Abdomen/Pel W ORAL Cont Only Date of Exam: 03/25 Exam# [id number] Ordering Dr: Nagi Larios DO :[id number] STUDY: CT ABDOMEN AND PELVIS WITHOUT CONTRAST REASON FOR EXAM: Female, 88 years old. Abdominal pain and abdominal bloating. RADIATION DOSAGE (If Supplied By Facility): CTDIvol = ( 10.38 ) mGy, DLP = ( 653.27 ) mGycm TECHNIQUE: Transaxial images were obtained from the dome of the diaphragm to the symphysis pubis without oral contrast, and without intravenous contrast. Sagittal and coronal images were reconstructed. Individualized dose optimization techniques were used for this CT. COMPARISON: Comparison is made with prior study dated December 02, 2022 and November 27, 2019. FINDINGS: The visualized lung bases are unremarkable. Small to moderate-sized pericardial effusion. No visualized coronary calcifications on this examination. Normal liver. The patient status post cholecystectomy. There are multiple benign calcified granulomata of the spleen. Normal pancreas. Persistent 10.8 cm x 8.9 cm x 8.7 cm cystic mass in the region of the head of the pancreas and extending inferiorly into the right mid abdomen. Punctate calcifications are seen along its inferior margin. A large pseudocyst should be ruled out. Normal bilateral adrenal glands. Normal right kidney. Normal left kidney. The stomach is distended and filled with residual food particles or oral contrast. Normal small intestine. Normal colon. The appendix is visualized and appears normal. There is diffuse atherosclerotic calcification of the abdominal aorta, without a demonstrated aneurysm. Normal inferior vena cava. Normal retroperitoneum. Limited visualization of the pelvic structures due to beam hardening artifact caused by bilateral hip replacement. Normal abdominal wall. There are diffuse degenerative changes of the visualized lumbar spine. Levoscoliosis. CT/Abdomen/Pel W ORAL Cont Only IMPRESSION: Pericardial effusion. Stable cystic lesion in the region of the pancreas and right mid abdomen as described and this may represent a large pseudocyst. Fecal material is seen in the colon. Distention of the stomach. Electronically Signed: Avelino Mclain MD at 14:49 EDT Reading Location ID and State: [facility] / [place] , Service support , CC: Dr. Cody Vanegas DO; Nagi Larios, Dye Blender: Signed Normal [facility] Gastroenterology Visit Repor ton 04-01-2024 Gastroenterology Visit Report [facility] [address] [place] [address] OFFICE VISIT Date of Service: 04/01/24 MR#: [id number] Acct: [id number] Name: KELLIE HUDSON Rep #: [id number] : 1935 Provider: Nagi Larios DO Age/Sex: 88/F Location: [facility] Status: Signed Intake Vital Signs 09/14/23 14:20 Height 5 ft Intake Visit Reasons: Recurring abdominal pain Allergies amoxicillin Adverse Reaction (Verified 09/14/23 14:22) Upset Stomach atorvastatin (From Lipitor) Adverse Reaction (Verified 09/14/23 14:22) myalgias ciprofloxacin (From Cipro) Adverse Reaction (Verified 09/14/23 14:22) Itching clarithromycin (From Biaxin) Adverse Reaction (Verified 09/14/23 14:22) Vomiting thiopental (From Pentothal) Adverse Reaction (Verified 09/14/23 14:22) Nausea Medications ???Medication ???Instructions ???Recorded ???Confirmed ???Type albuterol sulfate 90 mcg/actuation 1 puff inhalation Q6H PRN Sob /Or 02/26/18 04/01/24 History aerosol inhaler (Ventolin HFA) Wheezing calcium 250 mg (phosphate)-vit D3 1 tab PO DAILY 02/26/18 04/01/24 History 12.5 mcg (500 unit) chewable tablet (Citracal-D3 Gummies) docusate sodium 100 mg capsule 100 mg PO DAILY 02/26/18 04/01/24 History (Stool Softener) fluticasone propionate 50 1 spray intranasal DAILY PRN 02/26/18 04/01/24 History mcg/actuation nasal Allergies spray,suspension (Flonase Allergy Relief) hydroxyurea 500 mg capsule 500 mg PO DAILY 09/14/22 04/01/24 History acetaminophen 500 mg tablet 1,000 mg (2 x 500 mg) PO Q8 6 days 12/09/22 04/01/24 Rx #36 tabs meclizine 25 mg chewable tablet 25 mg PO DAILY PRN PRN dizziness 01/07/23 04/01/24 History (Antivert) cetirizine 10 mg tablet (Zyrtec) 10 mg PO DAILY PRN ALLERGIES 07/20/23 04/01/24 History cyanocobalamin (vitamin B-12) 1,000 mcg PO DAILY 07/20/23 04/01/24 History 1,000 mcg tablet inulin-chromium picolinate 2 3 tab PO DAILY 07/20/23 04/01/24 History gram-100 mcg chewable tablet (Fiber Select Gummies) guaifenesin 600 mg tablet, 600 mg PO Q12H Cough 04/01/24 04/01/24 History extended release 12 hr (Mucinex) zoledronic acid 5 mg/100 mL in 1 ea .Route .Q2YEAR 04/01/24 04/01/24 History mannitol 5 %-water intravenous piggybck (Reclast) Have you fallen in the past year?: No PFSH Medical History Bilateral shoulder pain COPD (chronic obstructive pulmonary disease) Depression Fall GERD (gastroesophageal reflux disease) Goiter Hemorrhoids Hyperlipidemia Idiopathic thrombocythemia Left hip pain Macular degeneration Nodule of left lung Nonrheumatic tricuspid valve regurgitation Osteoarthritis Osteoporosis Pancreatic cyst Pericardial effusion Right hip pain Right knee pain Secondary pulmonary arterial hypertension Vertigo Vitamin D deficiency Surgical History H/O colectomy H/O shoulder surgery H/O total knee replacement (06/2018) History of appendectomy History of carpal tunnel release History of right and left heart catheterization (09/22/13) History of right hip replacement History of total left hip replacement Hx of cholecystectomy S/P tendon repair Family History Brother CAD (coronary artery disease) Diabetes Father Diabetes Myocardial infarction Social History Smoking Status: Never smoker alcohol intake: never HPI HPI Details: KELLIE HUDSON, is a 88 F who presents to the office today for follow up. Prior workup. Dr. Tucker [facility] established . with pancreatic cyst found 2018 during pulmonology workup for difficulty with deep inspiration with recommendation at that time to monitor. ? CT abd 5.18 report unavailable; two cystic structures seen. CT abd 5.20 (pancreatic cyst, s/p right colectomy) multiple splenic granulomata; pancreatic head and uncinate cystic structure progression with 2 adjacent cystic structures measuring 5.2x7.9x4.3 in aggregate measurement. ? MRI abd 12.29.19 (Dr. Tucker, pancreatic cyst) s/p cholecystectomy; increasing size of pancreatic head cyst 6x7.5cm EUS 01.28.20 gas polyps; hiatal hernia; pancreas without almost no normal parenchyma, likely atrophic secondary to large anechoic septated cyst of head/neck and part of body, cyst displaced portal vein, pancreatic duct could not be traced in body/tail but became tortuous with mild dilation near ampulla. 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 CT abd/pel without contrast 12.02.22 (ER, fall) incre (more content not included)... Normal [facility] CBC W/Diff, Automatedon 09- Absolute Lymph 0.87 X10 3/uL Normal 0.83-4.51 [facility] Comment on above: Performed By: #### L 503.6150, L501.9520, L500.4050, L503.6550, L100.0100 #### [facility] [address] [place], [address] Absolute Neut 2.5 X10 3/uL Normal 2.0-7.7 [facility] Comment on above: Performed By: #### L 503.6150, L501.9520, L500.4050, L503.6550, L100.0100 #### [facility] [address] [place], [address] Basophils/100 WBC (Bld) 0.5 % Normal 0-1 [facility] Comment on above: Performed By: #### L 503.6150, L501.9520, L500.4050, L503.6550, L100.0100 #### [facility] [address] [place], [address] Eosinophils/100 WBC (Bld) 1.8 % Normal 0-5 [facility] Comment on above: Performed By: #### L 503.6150, L501.9520, L500.4050, L503.6550, L100.0100 #### [facility] [address] [place], [address] Erythrocyte distribution width (RBC) [Ratio] 14.0 % Normal 11.6-14.6 [facility] Comment on above: Performed By: #### L 503.6150, L501.9520, L500.4050, L503.6550, L100.0100 #### [facility] [address] [place], [address] Hematocrit (Bld) [Volume fraction] 41.3 % Normal 37-47 [facility] Comment on above: Performed By: #### L 503.6150, L501.9520, L500.4050, L503.6550, L100.0100 #### [facility] [address] [place], [address] Hemoglobin (Bld) [Mass/Vol] 13.5 g/dL Normal 12.0-15.0 [facility] Comment on above: Performed By: #### L 503.6150, L501.9520, L500.4050, L503.6550, L100.0100 #### [facility] [address] [place], [address] IG% 0.300 Normal 0.0-0.9 [facility] Comment on above: Result Comment: IG% - Immature Granulocytes (promyelocytes, myelocytes and metamyelocytes) > 1% indicates that a LEFT SHIFT is Present. Performed By: #### L 503.6150, L501.9520, L500.4050, L503.6550, L100.0100 #### [facility] [address] [place], [address] Lymphocytes/100 WBC (Bld) 22.4 % Normal 19-41 [facility] Comment on above: Performed By: #### L 503.6150, L501.9520, L500.4050, L503.6550, L100.0100 #### [facility] [address] [place], [address] MCH (RBC) [Entitic mass] 34.4 pg High 27.0-32.0 [facility] Comment on above: Performed By: #### L 503.6150, L501.9520, L500.4050, L503.6550, L100.0100 #### [facility] [address] [place], [address] MCHC (RBC) [Mass/Vol] 32.7 g/dL Normal 32-36 [facility] Comment on above: Performed By: #### L 503.6150, L501.9520, L500.4050, L503.6550, L100.0100 #### [facility] [address] [place], [address] MCV (RBC) [Entitic vol] 105.4 fL High 81-99 [facility] Comment on above: Performed By: #### L 503.6150, L501.9520, L500.4050, L503.6550, L100.0100 #### [facility] [address] [place], [address] Monocytes/100 WBC (Bld) 11.6 % High 0-10 [facility] Comment on above: Performed By: #### L 503.6150, L501.9520, L500.4050, L503.6550, L100.0100 #### [facility] [address] [place], [address] Neutrophils/100 WBC (Bld) 63.4 % Normal 47-70 [facility] Comment on above: Performed By: #### L 503.6150, L501.9520, L500.4050, L503.6550, L100.0100 #### [facility] [address] [place], [address] Nucleated RBC (Bld) [#/Vol] 0 10*3/uL Normal 0-5 [facility] Comment on above: Performed By: #### L 503.6150, L501.9520, L500.4050, L503.6550, L100.0100 #### [facility] [address] [place], [address] Platelet mean volume (Bld) [Entitic vol] 9.0 fL Normal 6.2-12.0 [facility] Comment on above: Performed By: #### L 503.6150, L501.9520, L500.4050, L503.6550, L100.0100 #### [facility] [address] [place], [address] Platelets (Bld) [#/Vol] 353 10*3/uL Normal 150-450 [facility] Comment on above: Performed By: #### L 503.6150, L501.9520, L500.4050, L503.6550, L100.0100 #### [facility] [address] [place], [address] RBC (Bld) [#/Vol] 3.92 10*6/uL Low 4.2-5.4 [facility] Comment on above: Performed By: #### L 503.6150, L501.9520, L500.4050, L503.6550, L100.0100 #### [facility] [address] [place], [address] RDW SD 54.4 fl High 35.1-43.9 [facility] Comment on above: Performed By: #### L 503.6150, L501.9520, L500.4050, L503.6550, L100.0100 #### [facility] [address] [place], [address] WBC (Bld) [#/Vol] 3.9 10*3/uL Low 4.4-11.0 [facility] Comment on above: Performed By: #### L 503.6150, L501.9520, L500.4050, L503.6550, L100.0100 #### [facility] [address] [place], [address] CBC W/Diff, Automatedon 01-31 Absolute Lymph 0.99 X10 3/uL Normal 0.83-4.51 [facility] Comment on above: Performed By: #### L 503.6150, L501.9520, L500.4050, L503.6550, L100.0100 #### [facility] [address] [place], [address] Absolute Neut 2.5 X10 3/uL Normal 2.0-7.7 [facility] Comment on above: Performed By: #### L 503.6150, L501.9520, L500.4050, L503.6550, L100.0100 #### [facility] [address] [place], [address] Basophils/100 WBC (Bld) 0.7 % Normal 0-1 [facility] Comment on above: Performed By: #### L 503.6150, L501.9520, L500.4050, L503.6550, L100.0100 #### [facility] [address] [place], [address] Eosinophils/100 WBC (Bld) 1.9 % Normal 0-5 [facility] Comment on above: Performed By: #### L 503.6150, L501.9520, L500.4050, L503.6550, L100.0100 #### [facility] [address] [place], [address] Erythrocyte distribution width (RBC) [Ratio] 14.0 % Normal 11.6-14.6 [facility] Comment on above: Performed By: #### L 503.6150, L501.9520, L500.4050, L503.6550, L100.0100 #### [facility] [address] [place], [address] Hematocrit (Bld) [Volume fraction] 42.6 % Normal 37-47 [facility] Comment on above: Performed By: #### L 503.6150, L501.9520, L500.4050, L503.6550, L100.0100 #### [facility] [address] [place], [address] Hemoglobin (Bld) [Mass/Vol] 13.7 g/dL Normal 12.0-15.0 [facility] Comment on above: Performed By: #### L 503.6150, L501.9520, L500.4050, L503.6550, L100.0100 #### [facility] [address] [place], [address] IG% 0.200 Normal 0.0-0.9 [facility] Comment on above: Result Comment: IG% - Immature Granulocytes (promyelocytes, myelocytes and metamyelocytes) > 1% indicates that a LEFT SHIFT is Present. Performed By: #### L 503.6150, L501.9520, L500.4050, L503.6550, L100.0100 #### [facility] [address] [place], [address] Lymphocytes/100 WBC (Bld) 23.7 % Normal 19-41 [facility] Comment on above: Performed By: #### L 503.6150, L501.9520, L500.4050, L503.6550, L100.0100 #### [facility] [address] [place], [address] MCH (RBC) [Entitic mass] 34.2 pg High 27.0-32.0 [facility] Comment on above: Performed By: #### L 503.6150, L501.9520, L500.4050, L503.6550, L100.0100 #### [facility] [address] [place], [address] MCHC (RBC) [Mass/Vol] 32.2 g/dL Normal 32-36 [facility] Comment on above: Performed By: #### L 503.6150, L501.9520, L500.4050, L503.6550, L100.0100 #### [facility] [address] [place], [address] MCV (RBC) [Entitic vol] 106.2 fL High 81-99 [facility] Comment on above: Performed By: #### L 503.6150, L501.9520, L500.4050, L503.6550, L100.0100 #### [facility] [address] [place], [address] Monocytes/100 WBC (Bld) 12.9 % High 0-10 [facility] Comment on above: Performed By: #### L 503.6150, L501.9520, L500.4050, L503.6550, L100.0100 #### [facility] [address] [place], [address] Neutrophils/100 WBC (Bld) 60.6 % Normal 47-70 [facility] Comment on above: Performed By: #### L 503.6150, L501.9520, L500.4050, L503.6550, L100.0100 #### [facility] [address] [place], [address] Nucleated RBC (Bld) [#/Vol] 0 10*3/uL Normal 0-5 [facility] Comment on above: Performed By: #### L 503.6150, L501.9520, L500.4050, L503.6550, L100.0100 #### [facility] [address] [place], [address] Platelet mean volume (Bld) [Entitic vol] 9.4 fL Normal 6.2-12.0 [facility] Comment on above: Performed By: #### L 503.6150, L501.9520, L500.4050, L503.6550, L100.0100 #### [facility] [address] [place], [address] Platelets (Bld) [#/Vol] 350 10*3/uL Normal 150-450 [facility] Comment on above: Performed By: #### L 503.6150, L501.9520, L500.4050, L503.6550, L100.0100 #### [facility] [address] [place], [address] RBC (Bld) [#/Vol] 4.01 10*6/uL Low 4.2-5.4 [facility] Comment on above: Performed By: #### L 503.6150, L501.9520, L500.4050, L503.6550, L100.0100 #### [facility] [address] [place], [address] RDW SD 55.0 fl High 35.1-43.9 [facility] Comment on above: Performed By: #### L 503.6150, L501.9520, L500.4050, L503.6550, L100.0100 #### [facility] [address] [place], [address] WBC (Bld) [#/Vol] 4.2 10*3/uL Low 4.4-11.0 [facility] Comment on above: Performed By: #### L 503.6150, L501.9520, L500.4050, L503.6550, L100.0100 #### [facility] [address] [place], [address] CBC W/Diff, Automatedon 07-2 -2023 Absolute Lymph 1.12 X10 3/uL Normal 0.83-4.51 [facility] Comment on above: Performed By: #### L 100.0100 #### [facility] [address] [place], [address] Absolute Neut 3.4 X10 3/uL Normal 2.0-7.7 [facility] Comment on above: Performed By: #### L 100.0100 #### [facility] [address] [place], [address] Basophils/100 WBC (Bld) 0.6 % Normal 0-1 [facility] Comment on above: Performed By: #### L 100.0100 #### [facility] [address] [place], [address] Eosinophils/100 WBC (Bld) 1.0 % Normal 0-5 [facility] Comment on above: Performed By: #### L 100.0100 #### [facility] [address] [place], [address] Erythrocyte distribution width (RBC) [Ratio] 13.4 % Normal 11.6-14.6 [facility] Comment on above: Performed By: #### L 100.0100 #### [facility] [address] [place], [address] Hematocrit (Bld) [Volume fraction] 42.6 % Normal 37-47 [facility] Comment on above: Performed By: #### L 100.0100 #### [facility] [address] [place], [address] Hemoglobin (Bld) [Mass/Vol] 14.0 g/dL Normal 12.0-15.0 [facility] Comment on above: Performed By: #### L 100.0100 #### [facility] [address] [place], [address] IG% 0.200 Normal 0.0-0.9 [facility] Comment on above: Result Comment: IG% - Immature Granulocytes (promyelocytes, myelocytes and metamyelocytes) > 1% indicates that a LEFT SHIFT is Present. Performed By: #### L 100.0100 #### [facility] [address], [address] Lymphocytes/100 WBC (Bld) 21.5 % Normal 19-41 [facility] Comment on above: Performed By: #### L 100.0100 #### [facility] [address] [place], [address] MCH (RBC) [Entitic mass] 34.5 pg High 27.0-32.0 [facility] Comment on above: Performed By: #### L 100.0100 #### [facility] [address] [place], [address] MCHC (RBC) [Mass/Vol] 32.9 g/dL Normal 32-36 [facility] Comment on above: Performed By: #### L 100.0100 #### [facility] [address] [place], [address] MCV (RBC) [Entitic vol] 104.9 fL High 81-99 [facility] Comment on above: Performed By: #### L 100.0100 #### [facility] [address] [place], [address] Monocytes/100 WBC (Bld) 11.1 % High 0-10 [facility] Comment on above: Performed By: #### L 100.0100 #### [facility] [address] [place], [address] Neutrophils/100 WBC (Bld) 65.6 % Normal 47-70 [facility] Comment on above: Performed By: #### L 100.0100 #### [facility] [address] [place], [address] Nucleated RBC (Bld) [#/Vol] 0 10*3/uL Normal 0-5 [facility] Comment on above: Performed By: #### L 100.0100 #### [facility] [address] [place], [address] Platelet mean volume (Bld) [Entitic vol] 9.1 fL Normal 6.2-12.0 [facility] Comment on above: Performed By: #### L 100.0100 #### [facility] [address] [place], [address] Platelets (Bld) [#/Vol] 354 10*3/uL Normal 150-450 [facility] Comment on above: Performed By: #### L 100.0100 #### [facility] [address] [place], [address] RBC (Bld) [#/Vol] 4.06 10*6/uL Low 4.2-5.4 [facility] Comment on above: Performed By: #### L 100.0100 #### [facility] [address] [place], [address] RDW SD 51.2 fl High 35.1-43.9 [facility] Comment on above: Performed By: #### L 100.0100 #### [facility] [address] [place], [address] WBC (Bld) [#/Vol] 5.2 10*3/uL Normal 4.4-11.0 [facility] Comment on above: Performed By: #### L 100.0100 #### [facility] [address] [place], [address] CBC W/Diff, Automatedon 06-2 Absolute Lymph 0.92 X10 3/uL Normal 0.83-4.51 [facility] Comment on above: Performed By: #### L 503.6150, L501.9520, L500.4050, L503.6550, L100.0100 #### [facility] [address] [place], [address] Absolute Neut 2.9 X10 3/uL Normal 2.0-7.7 [facility] Comment on above: Performed By: #### L 503.6150, L501.9520, L500.4050, L503.6550, L100.0100 #### [facility] [address] [place], [address] Basophils/100 WBC (Bld) 0.7 % Normal 0-1 [facility] Comment on above: Performed By: #### L 503.6150, L501.9520, L500.4050, L503.6550, L100.0100 #### [facility] [address] [place], [address] Eosinophils/100 WBC (Bld) 1.6 % Normal 0-5 [facility] Comment on above: Performed By: #### L 503.6150, L501.9520, L500.4050, L503.6550, L100.0100 #### [facility] [address] [place], [address] Erythrocyte distribution width (RBC) [Ratio] 13.4 % Normal 11.6-14.6 [facility] Comment on above: Performed By: #### L 503.6150, L501.9520, L500.4050, L503.6550, L100.0100 #### [facility] [address] [place], [address] Hematocrit (Bld) [Volume fraction] 40.6 % Normal 37-47 [facility] Comment on above: Performed By: #### L 503.6150, L501.9520, L500.4050, L503.6550, L100.0100 #### [facility] [address] [place], [address] Hemoglobin (Bld) [Mass/Vol] 13.1 g/dL Normal 12.0-15.0 [facility] Comment on above: Performed By: #### L 503.6150, L501.9520, L500.4050, L503.6550, L100.0100 #### [facility] [address] [place], [address] IG% 0.200 Normal 0.0-0.9 [facility] Comment on above: Result Comment: IG% - Immature Granulocytes (promyelocytes, myelocytes and metamyelocytes) > 1% indicates that a LEFT SHIFT is Present. Performed By: #### L 503.6150, L501.9520, L500.4050, L503.6550, L100.0100 #### [facility] [address] [place], [address] Lymphocytes/100 WBC (Bld) 21.1 % Normal 19-41 [facility] Comment on above: Performed By: #### L 503.6150, L501.9520, L500.4050, L503.6550, L100.0100 #### [facility] [address] [place], [address] MCH (RBC) [Entitic mass] 34.9 pg High 27.0-32.0 [facility] Comment on above: Performed By: #### L 503.6150, L501.9520, L500.4050, L503.6550, L100.0100 #### [facility] [address] [place], [address] MCHC (RBC) [Mass/Vol] 32.3 g/dL Normal 32-36 [facility] Comment on above: Performed By: #### L 503.6150, L501.9520, L500.4050, L503.6550, L100.0100 #### [facility] [address] [place], [address] MCV (RBC) [Entitic vol] 108.3 fL High 81-99 [facility] Comment on above: Performed By: #### L 503.6150, L501.9520, L500.4050, L503.6550, L100.0100 #### [facility] [address] [place], [address] Monocytes/100 WBC (Bld) 10.8 % High 0-10 [facility] Comment on above: Performed By: #### L 503.6150, L501.9520, L500.4050, L503.6550, L100.0100 #### [facility] [address] [place], [address] Neutrophils/100 WBC (Bld) 65.6 % Normal 47-70 [facility] Comment on above: Performed By: #### L 503.6150, L501.9520, L500.4050, L503.6550, L100.0100 #### [facility] [address] [place], [address] Nucleated RBC (Bld) [#/Vol] 0 10*3/uL Normal 0-5 [facility] Comment on above: Performed By: #### L 503.6150, L501.9520, L500.4050, L503.6550, L100.0100 #### [facility] [address] [place], [address] Platelet mean volume (Bld) [Entitic vol] 9.3 fL Normal 6.2-12.0 [facility] Comment on above: Performed By: #### L 503.6150, L501.9520, L500.4050, L503.6550, L100.0100 #### [facility] [address] [place], [address] Platelets (Bld) [#/Vol] 314 10*3/uL Normal 150-450 [facility] Comment on above: Performed By: #### L 503.6150, L501.9520, L500.4050, L503.6550, L100.0100 #### [facility] [address] [place], [address] RBC (Bld) [#/Vol] 3.75 10*6/uL Low 4.2-5.4 [facility] Comment on above: Performed By: #### L 503.6150, L501.9520, L500.4050, L503.6550, L100.0100 #### [facility] [address] [place], [address] RDW SD 53.2 fl High 35.1-43.9 [facility] Comment on above: Performed By: #### L 503.6150, L501.9520, L500.4050, L503.6550, L100.0100 #### [facility] [address] [place], [address] WBC (Bld) [#/Vol] 4.4 10*3/uL Normal 4.4-11.0 [facility] Comment on above: Performed By: #### L 503.6150, L501.9520, L500.4050, L503.6550, L100.0100 #### [facility] [address] [place], [address] CBC W/Diff, Automatedon 05-3 Absolute Lymph 1.03 X10 3/uL Normal 0.83-4.51 [facility] Comment on above: Performed By: #### L 503.6150, L501.9520, L500.4050, L503.6550, L100.0100 #### [facility] [address] [place], [address] Absolute Neut 3.6 X10 3/uL Normal 2.0-7.7 [facility] Comment on above: Performed By: #### L 503.6150, L501.9520, L500.4050, L503.6550, L100.0100 #### [facility] [address] [place], [address] Basophils/100 WBC (Bld) 0.6 % Normal 0-1 [facility] Comment on above: Performed By: #### L 503.6150, L501.9520, L500.4050, L503.6550, L100.0100 #### [facility] [address] [place], [address] Eosinophils/100 WBC (Bld) 1.6 % Normal 0-5 [facility] Comment on above: Performed By: #### L 503.6150, L501.9520, L500.4050, L503.6550, L100.0100 #### [facility] [address] [place], [address] Erythrocyte distribution width (RBC) [Ratio] 13.4 % Normal 11.6-14.6 [facility] Comment on above: Performed By: #### L 503.6150, L501.9520, L500.4050, L503.6550, L100.0100 #### [facility] [address] [place], [address] Hematocrit (Bld) [Volume fraction] 40.5 % Normal 37-47 [facility] Comment on above: Performed By: #### L 503.6150, L501.9520, L500.4050, L503.6550, L100.0100 #### [facility] [address] [place], [address] Hemoglobin (Bld) [Mass/Vol] 13.0 g/dL Normal 12.0-15.0 [facility] Comment on above: Performed By: #### L 503.6150, L501.9520, L500.4050, L503.6550, L100.0100 #### [facility] [address] [place], [address] IG% 0.600 Normal 0.0-0.9 [facility] Comment on above: Result Comment: IG% - Immature Granulocytes (promyelocytes, myelocytes and metamyelocytes) > 1% indicates that a LEFT SHIFT is Present. Performed By: #### L 503.6150, L501.9520, L500.4050, L503.6550, L100.0100 #### [facility] [address] [place], [address] Lymphocytes/100 WBC (Bld) 20.0 % Normal 19-41 [facility] Comment on above: Performed By: #### L 503.6150, L501.9520, L500.4050, L503.6550, L100.0100 #### [facility] [address] [place], [address] MCH (RBC) [Entitic mass] 35.2 pg High 27.0-32.0 [facility] Comment on above: Performed By: #### L 503.6150, L501.9520, L500.4050, L503.6550, L100.0100 #### [facility] [address] [place], [address] MCHC (RBC) [Mass/Vol] 32.1 g/dL Normal 32-36 [facility] Comment on above: Performed By: #### L 503.6150, L501.9520, L500.4050, L503.6550, L100.0100 #### [facility] [address] [place], [address] MCV (RBC) [Entitic vol] 109.8 fL High 81-99 [facility] Comment on above: Performed By: #### L 503.6150, L501.9520, L500.4050, L503.6550, L100.0100 #### [facility] [address] [place], [address] Monocytes/100 WBC (Bld) 8.5 % Normal 0-10 [facility] Comment on above: Performed By: #### L 503.6150, L501.9520, L500.4050, L503.6550, L100.0100 #### [facility] [address] [place], [address] Neutrophils/100 WBC (Bld) 68.7 % Normal 47-70 [facility] Comment on above: Performed By: #### L 503.6150, L501.9520, L500.4050, L503.6550, L100.0100 #### [facility] [address] [place], [address] Nucleated RBC (Bld) [#/Vol] 0 10*3/uL Normal 0-5 [facility] Comment on above: Performed By: #### L 503.6150, L501.9520, L500.4050, L503.6550, L100.0100 #### [facility] [address] [place], [address] Platelet mean volume (Bld) [Entitic vol] 9.2 fL Normal 6.2-12.0 [facility] Comment on above: Performed By: #### L 503.6150, L501.9520, L500.4050, L503.6550, L100.0100 #### [facility] [address] [place], [address] Platelets (Bld) [#/Vol] 308 10*3/uL Normal 150-450 [facility] Comment on above: Performed By: #### L 503.6150, L501.9520, L500.4050, L503.6550, L100.0100 #### [facility] [address] [place], [address] RBC (Bld) [#/Vol] 3.69 10*6/uL Low 4.2-5.4 [facility] Comment on above: Performed By: #### L 503.6150, L501.9520, L500.4050, L503.6550, L100.0100 #### [facility] [address] [place], [address] RDW SD 55.0 fl High 35.1-43.9 [facility] Comment on above: Performed By: #### L 503.6150, L501.9520, L500.4050, L503.6550, L100.0100 #### [facility] [address] [place], [address] WBC (Bld) [#/Vol] 5.2 10*3/uL Normal 4.4-11.0 [facility] Comment on above: Performed By: #### L 503.6150, L501.9520, L500.4050, L503.6550, L100.0100 #### [facility] [address] [place], [address] Absolute lymphocyte countOrd ered By: Cody Vanegas on 10-26-2023 Lymphocytes Auto (Unsp spec) [#/Vol] 0.70 10*3/uL 0.83-4.51 [facility] Automated lymphocyte count a s percentage of total leukocytesOrdered By: Cody Vanegas on 10-26-2023 Lymphocytes/100 WBC Auto (Unsp spec) 19.7 % 19-41 [facility] Basophil percentageOrdered B y: Cody Vanegas on 10-26-2023 Basophils/100 WBC (Bld) 0.3 % 0-1 [facility] Bilirubin [Mass/Vol] 0.50 mg/dL 0.20-1.00 [facility] Comment on above: For patients on eltr ombopag therapy, use of Dimension [place] TBIL is not recommended. Chloride [Moles/Vol] 107 mmol/L 98-107 [facility] Eosinophils/100 WBC (Bld) 1.4 % 0-5 [facility] Glucose [Mass/Vol] 74 mg/dL 74-106 [facility] Hemoglobin (Bld) [Mass/Vol] 13.4 g/dL 12.0-15.0 [facility] Monocytes/100 WBC (Bld) 11.5 % 0-10 [facility] Neutrophils (Bld) [#/Vol] 2.4 10*3/uL 2.0-7.7 [facility] Neutrophils/100 WBC (Bld) 66.5 % 47-70 [facility] Potassium [Moles/Vol] 3.9 mmol/L 3.5-5.1 [facility] Protein [Mass/Vol] 6.5 g/dL 6.4-8.2 [facility] Sodium [Moles/Vol] 137 mmol/L 136-145 [facility] WBC (Bld) [#/Vol] 3.6 10*3/uL 4.4-11.0 [facility] CBC W/Diff, Automatedon 04 Absolute Lymph 0.70 X10 3/uL Low 0.83-4.51 [facility] Comment on above: Performed By: #### L 501.9985, L500.4050, L506.1000, L501.9520, L100.0100 #### [facility] [address] [place], [address] Absolute Neut 2.4 X10 3/uL Normal 2.0-7.7 [facility] Comment on above: Performed By: #### L 501.9985, L500.4050, L506.1000, L501.9520, L100.0100 #### [facility] [address] [place], [address] Basophils/100 WBC (Bld) 0.3 % Normal 0-1 [facility] Comment on above: Performed By: #### L 501.9985, L500.4050, L506.1000, L501.9520, L100.0100 #### [facility] [address] [place], [address] Eosinophils/100 WBC (Bld) 1.4 % Normal 0-5 [facility] Comment on above: Performed By: #### L 501.9985, L500.4050, L506.1000, L501.9520, L100.0100 #### [facility] [address] [place], [address] Erythrocyte distribution width (RBC) [Ratio] 13.5 % Normal 11.6-14.6 [facility] Comment on above: Performed By: #### L 501.9985, L500.4050, L506.1000, L501.9520, L100.0100 #### [facility] [address] [place], [address] Hematocrit (Bld) [Volume fraction] 40.9 % Normal 37-47 [facility] Comment on above: Performed By: #### L 501.9985, L500.4050, L506.1000, L501.9520, L100.0100 #### [facility] [address] [place], [address] Hemoglobin (Bld) [Mass/Vol] 13.4 g/dL Normal 12.0-15.0 [facility] Comment on above: Performed By: #### L 501.9985, L500.4050, L506.1000, L501.9520, L100.0100 #### [facility] [address] [place], [address] IG% 0.600 Normal 0.0-0.9 [facility] Comment on above: Result Comment: IG% - Immature Granulocytes (promyelocytes, myelocytes and metamyelocytes) > 1% indicates that a LEFT SHIFT is Present. Performed By: #### L 501.9985, L500.4050, L506.1000, L501.9520, L100.0100 #### [facility] [address] [place], [address] Lymphocytes/100 WBC (Bld) 19.7 % Normal 19-41 [facility] Comment on above: Performed By: #### L 501.9985, L500.4050, L506.1000, L501.9520, L100.0100 #### [facility] [address] [place], [address] MCH (RBC) [Entitic mass] 35.4 pg High 27.0-32.0 [facility] Comment on above: Performed By: #### L 501.9985, L500.4050, L506.1000, L501.9520, L100.0100 #### [facility] [address] [place], [address] MCHC (RBC) [Mass/Vol] 32.8 g/dL Normal 32-36 [facility] Comment on above: Performed By: #### L 501.9985, L500.4050, L506.1000, L501.9520, L100.0100 #### [facility] [address] [place], [address] MCV (RBC) [Entitic vol] 108.2 fL High 81-99 [facility] Comment on above: Performed By: #### L 501.9985, L500.4050, L506.1000, L501.9520, L100.0100 #### [facility] [address] [place], [address] Monocytes/100 WBC (Bld) 11.5 % High 0-10 [facility] Comment on above: Performed By: #### L 501.9985, L500.4050, L506.1000, L501.9520, L100.0100 #### [facility] [address] [place], [address] Neutrophils/100 WBC (Bld) 66.5 % Normal 47-70 [facility] Comment on above: Performed By: #### L 501.9985, L500.4050, L506.1000, L501.9520, L100.0100 #### [facility] [address] [place], [address] Nucleated RBC (Bld) [#/Vol] 0 10*3/uL Normal 0-5 [facility] Comment on above: Performed By: #### L 501.9985, L500.4050, L506.1000, L501.9520, L100.0100 #### [facility] [address] [place], [address] Platelet mean volume (Bld) [Entitic vol] 9.1 fL Normal 6.2-12.0 [facility] Comment on above: Performed By: #### L 501.9985, L500.4050, L506.1000, L501.9520, L100.0100 #### [facility] [address] [place], [address] Platelets (Bld) [#/Vol] 297 10*3/uL Normal 150-450 [facility] Comment on above: Performed By: #### L 501.9985, L500.4050, L506.1000, L501.9520, L100.0100 #### [facility] [address] [place], [address] RBC (Bld) [#/Vol] 3.78 10*6/uL Low 4.2-5.4 [facility] Comment on above: Performed By: #### L 501.9985, L500.4050, L506.1000, L501.9520, L100.0100 #### [facility] [address] [place], [address] RDW SD 53.3 fl High 35.1-43.9 [facility] Comment on above: Performed By: #### L 501.9985, L500.4050, L506.1000, L501.9520, L100.0100 #### [facility] [address] [place], [address] WBC (Bld) [#/Vol] 3.6 10*3/uL Low 4.4-11.0 [facility] Comment on above: Performed By: #### L 501.9985, L500.4050, L506.1000, L501.9520, L100.0100 #### [facility] [address] [place], [address] [facility] 10-26-2023 Albumin [Mass/Vol] 3.4 g/dL Normal 3.2-5.0 [facility] Comment on above: Performed By: #### L 503.6150, L501.9520, L500.4050, L503.6550, L100.0100 #### [facility] [address] [place], [address] Albumin/Globulin [Mass ratio] 1.1 {ratio} Normal 0.9-2.4 [facility] Comment on above: Performed By: #### L 503.6150, L501.9520, L500.4050, L503.6550, L100.0100 #### [facility] [address] [place], [address] ALK P 99 U/L Normal 45-117 [facility] Comment on above: Performed By: #### L 503.6150, L501.9520, L500.4050, L503.6550, L100.0100 #### [facility] [address] [place], [address] ALT [Catalytic activity/Vol] 24 U/L Normal 13-56 [facility] Comment on above: Performed By: #### L 503.6150, L501.9520, L500.4050, L503.6550, L100.0100 #### [facility] [address] [place], [address] AST [Catalytic activity/Vol] 15 U/L Normal 15-37 [facility] Comment on above: Performed By: #### L 503.6150, L501.9520, L500.4050, L503.6550, L100.0100 #### [facility] [address] [place], [address] Bilirubin [Mass/Vol] 0.50 mg/dL Normal 0.20-1.00 [facility] Comment on above: Result Comment: For patients on eltrombopag therapy, use of Dimension [place] TBIL is not recommended. Performed By: #### L 503.6150, L501.9520, L500.4050, L503.6550, L100.0100 #### [facility] [address] [place], [address] BUN/CRE 25.5 RATIO High 10-20 [facility] Comment on above: Performed By: #### L 503.6150, L501.9520, L500.4050, L503.6550, L100.0100 #### [facility] [address] [place], [address] CA,Total 9.2 mg/dL Normal 8.5-10.1 [facility] Comment on above: Performed By: #### L 503.6150, L501.9520, L500.4050, L503.6550, L100.0100 #### [facility] [address] [place], [address] Chloride [Moles/Vol] 107 mmol/L Normal 98-107 [facility] Comment on above: Performed By: #### L 503.6150, L501.9520, L500.4050, L503.6550, L100.0100 #### [facility] [address] [place], [address] CO2 [Moles/Vol] 27.0 mmol/L Normal 21.0-32.0 [facility] Comment on above: Performed By: #### L 503.6150, L501.9520, L500.4050, L503.6550, L100.0100 #### [facility] [address] [place], [address] Creatinine [Mass/Vol] 0.51 mg/dL Low 0.55-1.02 [facility] Comment on above: Result Comment: The validity of the calculated GFR GFRAA in patients over 70 years has not been determined. Clinical correlation is essential. Performed By: #### L 503.6150, L501.9520, L500.4050, L503.6550, L100.0100 #### [facility] [address] [place], [address] EST GFR - AA 147 mL/min Normal >60 [facility] Comment on above: Result Comment: Afri can Maltese GFR Calc Performed By: #### L 503.6150, L501.9520, L500.4050, L503.6550, L100.0100 #### [facility] [address] [place], [address] GAP 3 Low 5-15 [facility] Comment on above: Performed By: #### L 503.6150, L501.9520, L500.4050, L503.6550, L100.0100 #### [facility] [address] [place], [address] GFR/1.73 sq M.predicted among non-blacks MDRD (S/P/Bld) [Vol rate/Area] 121 mL/min/{1.73_m2} Normal >60 [facility] Comment on above: Result Comment: Non- GFR Calc Performed By: #### L 503.6150, L501.9520, L500.4050, L503.6550, L100.0100 #### [facility] [address] [place], [address] Globulin (S) [Mass/Vol] 3.1 g/dL Normal 2.2-4.2 [facility] Comment on above: Performed By: #### L 503.6150, L501.9520, L500.4050, L503.6550, L100.0100 #### [facility] [address] [place], [address] Glucose [Mass/Vol] 74 mg/dL Normal 74-106 [facility] Comment on above: Performed By: #### L 503.6150, L501.9520, L500.4050, L503.6550, L100.0100 #### [facility] [address] [place], [address] Potassium [Moles/Vol] 3.9 mmol/L Normal 3.5-5.1 [facility] Comment on above: Performed By: #### L 503.6150, L501.9520, L500.4050, L503.6550, L100.0100 #### [facility] [address] [place], [address] Sodium [Moles/Vol] 137 mmol/L Normal 136-145 [facility] Comment on above: Performed By: #### L 503.6150, L501.9520, L500.4050, L503.6550, L100.0100 #### [facility] [address] [place], [address] T PROT 6.5 g/dL Normal 6.4-8.2 [facility] Comment on above: Performed By: #### L 503.6150, L501.9520, L500.4050, L503.6550, L100.0100 #### [facility] [address] [place], [address] Urea nitrogen [Mass/Vol] 13 mg/dL Normal 7-18 [facility] Comment on above: Performed By: #### L 503.6150, L501.9520, L500.4050, L503.6550, L100.0100 #### [facility] [address] [place], [address] Determination of erythrocyte mean corpuscular volume (MCV)Ordered By: Cody Vanegas on 10-26-2023 MCV (RBC) [Entitic vol] 108.2 fL 81-99 [facility] Erythrocyte distribution wid th ratioOrdered By: Cody Vanegas on 10-26-2023 Erythrocyte distribution width (RBC) [Ratio] 13.5 % 11.6-14.6 [facility] Erythrocyte distribution wid th standard deviationOrdered By: Cody Vanegas on 10-26-2023 Erythrocyte distribution width (RBC) [Entitic vol] 53.3 fL 35.1-43.9 [facility] HIP, UNI W/ Pelvis 2-3 Views on 10-26-2023 HIP, UNI W/ Pelvis 2-3 Views [facility] [address] [place] [address] HIP, UNI W/ Pelvis 2-3 Views MR#: [id number] Acct: [id number] Name: KELLIE HUDSON Rep #: [id number] : 1935 F [id number] From: Renard Blake MD PCP: Dr. Cody Vanegas DO Status: REG CLI Study: HIP, UNI W/ Pelvis 2-3 Views Date of Exam: Exam# [id number] Ordering Dr: Cody Vanegas DO :[id number] STUDY: X-RAY - PELVIS AND RIGHT HIP REASON FOR EXAM: Female, 88 years old. Pelvic pain TECHNIQUE: 3 views of the pelvis and hip. COMPARISON: None. FINDINGS: There is a non-specific bowel gas pattern. Normal visualized soft tissue structures. Diffuse osteopenia of the galena osseous structures There is narrowing with cortical sclerosis and osteophyte formation of the sacroiliac joint consistent with degenerative osteoarthritic changes. Normal bilateral superior and inferior pubic rami. Old healed right superior and inferior pubic rami fractures Both hip joints have been previously replaced. Components demonstrate anatomic alignment, no plain film evidence of hardware complication or failure. RAD/HIP, UNI W/ Pelvis 2-3 Views IMPRESSION: Osteopenia with old healed right superior and inferior pubic rami fractures Bilateral hip replacements demonstrate anatomic alignment, no plain film evidence of hardware complication or failure Electronically Signed: Giancarlo Blake MD at 15:16 EDT , CC: Dr. Cody Vanegas, Dye Blender: Signed Normal [facility] Hematocrit Auto (Bld) [Volum e fraction]Ordered By: Cody Vanegas on 10-26-2023 Hematocrit (Bld) [Volume fraction] 40.9 % 37-47 [facility] Hemoglobin A1con 10-26-2023 HbA1c (Bld) [Mass fraction] 5.1 % Normal 3.8-5.6 [facility] Comment on above: Result Comment: Norm al < 5.7 % Prediabetic 5.7 - 6.4 % Diabetic >or= 6.5 % Please note range changes. Performed By: #### L 503.6150, L501.9520, L500.4050, L503.6550, L100.0100 #### [facility] [address] [place], [address] Immature granulocytes/100 WB C Auto (Bld)Ordered By: Cody Vanegas on 10-26-2023 Immature granulocytes/100 WBC (Bld) 0.600 % 0.0-0.9 [facility] Comment on above: IG% - Immature Granu locytes (promyelocytes, myelocytes and metamyelocytes) > 1% indicates that a LEFT SHIFT is Present. Laboratory - Chemistry and C hemistry - challengeOrdered By: Cody Vanegas on 10-26-2023 Albumin/Globulin [Mass ratio] 1.1 {ratio} 0.9-2.4 [facility] ALP [Catalytic activity/Vol] 99 U/L 45-117 [facility] ALT [Catalytic activity/Vol] 24 U/L 13-56 [facility] CO2 [Moles/Vol] 27.0 mmol/L 21.0-32.0 [facility] Globulin (S) [Mass/Vol] 3.1 g/dL 2.2-4.2 [facility] Urea nitrogen/Creatinine [Mass ratio] 25.5 mg/mg 10-20 [facility] - Hematology and Cell countsOrdered By: Cody Vanegas on 10-26-2023 MCH (RBC) [Entitic mass] 35.4 pg 27.0-32.0 [facility] MCHC (RBC) [Mass/Vol] 32.8 g/dL 32-36 [facility] Nucleated RBC/100 WBC (Bld) [Ratio] 0 % 0-5 [facility] Platelet mean volume (Bld) [Entitic vol] 9.1 fL 6.2-12.0 [facility] Platelets (Bld) [#/Vol] 297 10*3/uL 150-450 [facility] No Panel InformationOrdered By: Cody Vanegas on 10-26-2023 Estimated GFR (MDRD) Amer 147 mL/min >60 [facility] Comment on above: GFR Calc Estimated GFR (MDRD) Non-Af Amer 121 mL/min >60 [facility] Comment on above: Non- GFR Calc Vitamin D 25-Hydroxy 49.1 ng/mL [facility] Comment on above: Vitamin D 25(OH) Sta tus Range Deficiency <20 ng/mL (50nmol/L) Insufficiency 20 - 30 ng/mL (50 - 75 nmol/L) Sufficiency 30 - 100 ng/mL (75 - 250 nmol/L) Toxicity >100 ng/mL (>250 nmol/L) RBC Auto (Bld) [#/Vol]Ordere d By: Cody Vanegas on 10-26-2023 RBC (Bld) [#/Vol] 3.78 10*6/uL 4.2-5.4 [facility] Serum or plasma calcium gibson urement (mass/volume)Ordered By: Cody Vanegas on 10-26-2023 Calcium [Mass/Vol] 9.2 mg/dL 8.5-10.1 [facility] Serum or plasma creatinine m easurement (mass/volume)Ordered By: Cody Vanegas on 10-26-2023 Creatinine [Mass/Vol] 0.51 mg/dL 0.55-1.02 [facility] Comment on above: The validity of the calculated GFR & GFRAA in patients over 70 years has not been determined. Clinical correlation is essential. Serum or plasma thyroid stim ulating hormone (TSH) measurement (units/volume)Ordered By: Cody Vanegas on 10-26-2023 TSH Qn 1.96 uIU/mL 0.358-3.74 [facility] Serum or plasma urea nitroge n measurement (mass/volume)Ordered By: Cody Vanegas on 10-26-2023 Urea nitrogen [Mass/Vol] 13 mg/dL 7-18 [facility] Thin prep Papanicolaou smear with manual screeningOrdered By: Cody Vanegas on 10-26-2023 Thin prep Papanicolaou smear with manual screening 3.4 g/dL 3.2-5.0 [facility] Thin prep Papanicolaou smear with manual screening 15 U/L 15-37 [facility] Thin prep Papanicolaou smear with manual screening 3 5-15 [facility] Thyroid Stim Hormone (TSH)on 10-26-2023 TSH 1.96 uIU/mL Normal 0.358-3.74 [facility] Comment on above: Performed By: #### L 503.8950, L501.9555, L500.4050, L503.6550, L100.0100 #### [facility] [address] [place], [place], [address] Vitamin D,25 Hydroxyon 10-25 Vitamin D 25-OH 49.1 ng/mL Normal [facility] Comment on above: Result Comment: Mena min D 25(OH) Status Range Deficiency <20 ng/mL (50nmol/L) Insufficiency 20 - 30 ng/mL (50 - 75 nmol/L) Sufficiency 30 - 100 ng/mL (75 - 250 nmol/L) Toxicity >100 ng/mL (>250 nmol/L) Performed By: #### L 501.9985, L500.4050, L506.1000, L501.9520, L100.0100 #### [facility] [address] [place], [address] Whole blood hemoglobin A1c/t otal hemoglobin ratio (mass fraction)Ordered By: Cody Vanegas on 10-26-2023 HbA1c (Bld) [Mass fraction] 5.1 % 3.8-5.6 [facility] Comment on above: Normal < 5.7 % Predi abetic 5.7 - 6.4 % Diabetic >or= 6.5 % Please note range changes. Absolute lymphocyte countOrd ered By: Cody Vanegas on 09-26-2023 Lymphocytes Auto (Unsp spec) [#/Vol] 0.74 10*3/uL 0.83-4.51 [facility] Automated lymphocyte count a s percentage of total leukocytesOrdered By: Cody Vanegas on 09-26-2023 Lymphocytes/100 WBC Auto (Unsp spec) 22.3 % 19-41 [facility] Basophil percentageOrdered B y: Cody Vanegas on 09-26-2023 Basophils/100 WBC (Bld) 0.6 % 0-1 [facility] Eosinophils/100 WBC (Bld) 2.1 % 0-5 [facility] Hemoglobin (Bld) [Mass/Vol] 12.9 g/dL 12.0-15.0 [facility] Monocytes/100 WBC (Bld) 12.3 % 0-10 [facility] Neutrophils (Bld) [#/Vol] 2.1 10*3/uL 2.0-7.7 [facility] Neutrophils/100 WBC (Bld) 62.4 % 47-70 [facility] WBC (Bld) [#/Vol] 3.3 10*3/uL 4.4-11.0 [facility] Determination of erythrocyte mean corpuscular volume (MCV)Ordered By: Cody Vanegas on 09-26-2023 MCV (RBC) [Entitic vol] 109.8 fL 81-99 [facility] Erythrocyte distribution wid th ratioOrdered By: Cody Vanegas on 09-26-2023 Erythrocyte distribution width (RBC) [Ratio] 14.2 % 11.6-14.6 [facility] Erythrocyte distribution wid th standard deviationOrdered By: Cody Vanegas on 09-26-2023 Erythrocyte distribution width (RBC) [Entitic vol] 57.8 fL 35.1-43.9 [facility] Hematocrit Auto (Bld) [Volum e fraction]Ordered By: Cody Vanegas on 09-26-2023 Hematocrit (Bld) [Volume fraction] 39.2 % 37-47 [facility] Immature granulocytes/100 WB C Auto (Bld)Ordered By: Cody Vanegas on 09-26-2023 Immature granulocytes/100 WBC (Bld) 0.300 % 0.0-0.9 [facility] Comment on above: IG% - Immature Granu locytes (promyelocytes, myelocytes and metamyelocytes) > 1% indicates that a LEFT SHIFT is Present. Laboratory - Hematology and Cell countsOrdered By: Cody Vanegas on 09-26-2023 MCH (RBC) [Entitic mass] 36.1 pg 27.0-32.0 [facility] MCHC (RBC) [Mass/Vol] 32.9 g/dL 32-36 [facility] Nucleated RBC/100 WBC (Bld) [Ratio] 0 % 0-5 [facility] Platelet mean volume (Bld) [Entitic vol] 9.1 fL 6.2-12.0 [facility] Platelets (Bld) [#/Vol] 293 10*3/uL 150-450 [facility] RBC Auto (Bld) [#/Vol]Ordere d By: Cody Vanegas on 09-26-2023 RBC (Bld) [#/Vol] 3.57 10*6/uL 4.2-5.4 [facility] Absolute lymphocyte countOrd ered By: Cody Vanegas on 08-24-2023 Lymphocytes Auto (Unsp spec) [#/Vol] 0.83 10*3/uL 0.83-4.51 [facility] Automated lymphocyte count a s percentage of total leukocytesOrdered By: Cody Vanegas on 08-24-2023 Lymphocytes/100 WBC Auto (Unsp spec) 28.1 % 19-41 [facility] Basophil percentageOrdered B y: Cody Vanegas on 08-24-2023 Basophils/100 WBC (Bld) 0.7 % 0-1 [facility] Eosinophils/100 WBC (Bld) 2.7 % 0-5 [facility] Hemoglobin (Bld) [Mass/Vol] 13.2 g/dL 12.0-15.0 [facility] Monocytes/100 WBC (Bld) 12.5 % 0-10 [facility] Neutrophils (Bld) [#/Vol] 1.6 10*3/uL 2.0-7.7 [facility] Neutrophils/100 WBC (Bld) 55.7 % 47-70 [facility] WBC (Bld) [#/Vol] 3.0 10*3/uL 4.4-11.0 [facility] Determination of erythrocyte mean corpuscular volume (MCV)Ordered By: Cody Vanegas on 08-24-2023 MCV (RBC) [Entitic vol] 110.2 fL 81-99 [facility] Erythrocyte distribution wid th ratioOrdered By: Cody Vanegas on 08-24-2023 Erythrocyte distribution width (RBC) [Ratio] 14.9 % 11.6-14.6 [facility] Erythrocyte distribution wid th standard deviationOrdered By: Cody Vanegas on 08-24-2023 Erythrocyte distribution width (RBC) [Entitic vol] 59.8 fL 35.1-43.9 [facility] Hematocrit Auto (Bld) [Volum e fraction]Ordered By: Cody Vanegas on 08-24-2023 Hematocrit (Bld) [Volume fraction] 41.0 % 37-47 [facility] Immature granulocytes/100 WB C Auto (Bld)Ordered By: Cody Vanegas on 08-24-2023 Immature granulocytes/100 WBC (Bld) 0.300 % 0.0-0.9 [facility] Comment on above: IG% - Immature Granu locytes (promyelocytes, myelocytes and metamyelocytes) > 1% indicates that a LEFT SHIFT is Present. Laboratory - Hematology and Cell countsOrdered By: Cody Vanegas on 08-24-2023 MCH (RBC) [Entitic mass] 35.5 pg 27.0-32.0 [facility] MCHC (RBC) [Mass/Vol] 32.2 g/dL 32-36 [facility] Nucleated RBC/100 WBC (Bld) [Ratio] 0 % 0-5 [facility] Platelet mean volume (Bld) [Entitic vol] 8.9 fL 6.2-12.0 [facility] Platelets (Bld) [#/Vol] 314 10*3/uL 150-450 [facility] RBC Auto (Bld) [#/Vol]Ordere d By: Cody Vanegas on 08-24-2023 RBC (Bld) [#/Vol] 3.72 10*6/uL 4.2-5.4 [facility] Absolute lymphocyte countOrd ered By: Cody Vanegas on 07-27-2023 Lymphocytes Auto (Unsp spec) [#/Vol] 0.87 10*3/uL 0.83-4.51 [facility] Automated lymphocyte count a s percentage of total leukocytesOrdered By: Cody Vanegas on 07-27-2023 Lymphocytes/100 WBC Auto (Unsp spec) 21.3 % 19-41 [facility] Basophil percentageOrdered B y: Cody Vanegas on 07-27-2023 Basophils/100 WBC (Bld) 0.7 % 0-1 [facility] Bilirubin [Mass/Vol] 0.40 mg/dL 0.20-1.00 [facility] Comment on above: For patients on eltr ombopag therapy, use of Dimension [place] TBIL is not recommended. Chloride [Moles/Vol] 104 mmol/L 98-107 [facility] Eosinophils/100 WBC (Bld) 1.7 % 0-5 [facility] Glucose [Mass/Vol] 83 mg/dL 74-106 [facility] Hemoglobin (Bld) [Mass/Vol] 13.5 g/dL 12.0-15.0 [facility] Monocytes/100 WBC (Bld) 12.5 % 0-10 [facility] Neutrophils (Bld) [#/Vol] 2.6 10*3/uL 2.0-7.7 [facility] Neutrophils/100 WBC (Bld) 63.8 % 47-70 [facility] Potassium [Moles/Vol] 4.2 mmol/L 3.5-5.1 [facility] Protein [Mass/Vol] 6.5 g/dL 6.4-8.2 [facility] Sodium [Moles/Vol] 136 mmol/L 136-145 [facility] WBC (Bld) [#/Vol] 4.1 10*3/uL 4.4-11.0 [facility] Determination of erythrocyte mean corpuscular volume (MCV)Ordered By: Cody Vanegas on 07-27-2023 MCV (RBC) [Entitic vol] 109.0 fL 81-99 [facility] Erythrocyte distribution wid th ratioOrdered By: Cody Vanegas on 07-27-2023 Erythrocyte distribution width (RBC) [Ratio] 15.2 % 11.6-14.6 [facility] Erythrocyte distribution wid th standard deviationOrdered By: Cody Vanegas on 07-27-2023 Erythrocyte distribution width (RBC) [Entitic vol] 60.7 fL 35.1-43.9 [facility] Hematocrit Auto (Bld) [Volum e fraction]Ordered By: Cody Vanegas on 07-27-2023 Hematocrit (Bld) [Volume fraction] 42.5 % 37-47 [facility] Immature granulocytes/100 WB C Auto (Bld)Ordered By: Cody Vanegas on 07-27-2023 Immature granulocytes/100 WBC (Bld) 0.000 % 0.0-0.9 [facility] Comment on above: IG% - Immature Granu locytes (promyelocytes, myelocytes and metamyelocytes) > 1% indicates that a LEFT SHIFT is Present. Laboratory - Chemistry and C hemistry - challengeOrdered By: Cody Vanegas on 07-27-2023 Albumin/Globulin [Mass ratio] 1.1 {ratio} 0.9-2.4 [facility] ALP [Catalytic activity/Vol] 145 U/L 45-117 [facility] ALT [Catalytic activity/Vol] 43 U/L 13-56 [facility] CO2 [Moles/Vol] 27.0 mmol/L 21.0-32.0 [facility] Cobalamin (Vitamin B12) [Mass/Vol] 693 pg/mL 211-911 [facility] Globulin (S) [Mass/Vol] 3.1 g/dL 2.2-4.2 [facility] Urea nitrogen/Creatinine [Mass ratio] 36.7 mg/mg 10-20 [facility] Laboratory - Hematology and Cell countsOrdered By: Cody Vanegas on 07-27-2023 MCH (RBC) [Entitic mass] 34.6 pg 27.0-32.0 [facility] MCHC (RBC) [Mass/Vol] 31.8 g/dL 32-36 [facility] Nucleated RBC/100 WBC (Bld) [Ratio] 0 % 0-5 [facility] Platelets (Bld) [#/Vol] 310 10*3/uL 150-450 [facility] No Panel InformationOrdered By: Cody Vanegas on 07-27-2023 Estimated GFR (MDRD) Amer 128 mL/min >60 [facility] Comment on above: GFR Calc Estimated GFR (MDRD) Non-Af Amer 106 mL/min >60 [facility] Comment on above: Non- GFR Calc Folate 12.60 ng/mL 3.1-55.4 [facility] Comment on above: Slight Hemolysis, Re sult may be falsely increased. Platelet mean volume Walter-Ec ker (Bld) [Entitic vol]Ordered By: Cody Vanegas on 07-27-2023 Platelet mean volume (Bld) [Entitic vol] 9.3 fL 6.2-12.0 [facility] RBC Auto (Bld) [#/Vol]Ordere d By: Cody Vanegas on 07-27-2023 RBC (Bld) [#/Vol] 3.90 10*6/uL 4.2-5.4 [facility] Serum or plasma calcium gibson urement (mass/volume)Ordered By: Cody Vanegas on 07-27-2023 Calcium [Mass/Vol] 9.3 mg/dL 8.5-10.1 [facility] Serum or plasma creatinine m easurement (mass/volume)Ordered By: Cody Vanegas on 07-27-2023 Creatinine [Mass/Vol] 0.57 mg/dL 0.55-1.02 [facility] Comment on above: The validity of the calculated GFR & GFRAA in patients over 70 years has not been determined. Clinical correlation is essential. Serum or plasma thyroid stim ulating hormone (TSH) measurement (units/volume)Ordered By: Cody Vanegas on 07-27-2023 TSH Qn 2.03 uIU/mL 0.358-3.74 [facility] Serum or plasma urea nitroge n measurement (mass/volume)Ordered By: Cody Vanegas on 07-27-2023 Urea nitrogen [Mass/Vol] 21 mg/dL 7-18 [facility] Thin prep Papanicolaou smear with manual screeningOrdered By: Cody Vanegas on 07-27-2023 Thin prep Papanicolaou smear with manual screening 3.4 g/dL 3.2-5.0 [facility] Thin prep Papanicolaou smear with manual screening 28 U/L 15-37 [facility] Thin prep Papanicolaou smear with manual screening 5 5-15 [facility] Absolute lymphocyte countOrd ered By: Cody Vanegas on 06-08-2023 Lymphocytes Auto (Unsp spec) [#/Vol] 0.88 10*3/uL 0.83-4.51 [facility] Basophil percentageOrdered B y: Cody Vanegas on 06-08-2023 Basophils/100 WBC (Bld) 0.9 % 0-1 [facility] Eosinophils/100 WBC (Bld) 2.1 % 0-5 [facility] Neutrophils (Bld) [#/Vol] 3.0 10*3/uL 2.0-7.7 [facility] Neutrophils/100 WBC (Bld) 64.3 % 47-70 [facility] WBC (Bld) [#/Vol] 4.7 10*3/uL 4.4-11.0 [facility] Blood erythrocytes count (nu mber/volume)Ordered By: Cody Vanegas on 06-08-2023 RBC (Bld) [#/Vol] 3.59 10*6/uL 4.2-5.4 [facility] Blood hemoglobin measurement (mass/volume)Ordered By: Cody Vanegas on 06-08-2023 Hemoglobin (Bld) [Mass/Vol] 12.2 g/dL 12.0-15.0 [facility] Blood lymphocytes/100 leukoc ytesOrdered By: Cody Vanegas on 06-08-2023 Lymphocytes/100 WBC (Bld) 18.8 % 19-41 [facility] Blood monocytes/100 leukocyt esOrdered By: Cody Vanegas on 06-08-2023 Monocytes/100 WBC (Bld) 13.5 % 0-10 [facility] Blood platelet mean volumeOr dered By: Cody Vanegas on 06-08-2023 Platelet mean volume (Bld) [Entitic vol] 8.4 fL 6.2-12.0 [facility] Determination of erythrocyte mean corpuscular volume (MCV)Ordered By: Cody Vanegas on 06-08-2023 MCV (RBC) [Entitic vol] 106.4 fL 81-99 [facility] Hematocrit Auto (Bld) [Volum e fraction]Ordered By: Cody Vanegas on 06-08-2023 Hematocrit (Bld) [Volume fraction] 38.2 % 37-47 [facility] Laboratory - Hematology and Cell countsOrdered By: Cody Vanegas on 06-08-2023 Erythrocyte distribution width (RBC) [Entitic vol] 58.2 fL 35.1-43.9 [facility] Erythrocyte distribution width (RBC) [Ratio] 15.1 % 11.6-14.6 [facility] Immature granulocytes/100 WBC (Bld) 0.400 % 0.0-0.9 [facility] Comment on above: IG% - Immature Granu locytes (promyelocytes, myelocytes and metamyelocytes) > 1% indicates that a LEFT SHIFT is Present. MCH (RBC) [Entitic mass] 34.0 pg 27.0-32.0 [facility] Nucleated RBC/100 WBC (Bld) [Ratio] 0 % 0-5 [facility] MCHC Auto (RBC) [Mass/Vol]Or dered By: Cody Vanegas on 06-08-2023 MCHC (RBC) [Mass/Vol] 31.9 g/dL 32-36 [facility] Platelets bldOrdered By: Franny artemio Michael on 06-08-2023 Platelets (Bld) [#/Vol] 484 10*3/uL 150-450 [facility] Absolute lymphocyte countOrd ered By: Cody Vanegas on 05-10-2023 Lymphocytes Auto (Unsp spec) [#/Vol] 0.73 10*3/uL 0.83-4.51 [facility] Basophil percentageOrdered B y: Cody Vanegas on 05-10-2023 Basophils/100 WBC (Bld) 0.4 % 0-1 [facility] Eosinophils/100 WBC (Bld) 2.2 % 0-5 [facility] Neutrophils (Bld) [#/Vol] 3.6 10*3/uL 2.0-7.7 [facility] Neutrophils/100 WBC (Bld) 71.2 % 47-70 [facility] WBC (Bld) [#/Vol] 5.0 10*3/uL 4.4-11.0 [facility] Blood erythrocytes count (nu mber/volume)Ordered By: Cody Vanegas on 05-10-2023 RBC (Bld) [#/Vol] 3.79 10*6/uL 4.2-5.4 [facility] Blood hemoglobin measurement (mass/volume)Ordered By: Cody Vanegas on 05-10-2023 Hemoglobin (Bld) [Mass/Vol] 12.7 g/dL 12.0-15.0 [facility] Blood lymphocytes/100 leukoc ytesOrdered By: Cody Vanegas on 05-10-2023 Lymphocytes/100 WBC (Bld) 14.5 % 19-41 [facility] Blood monocytes/100 leukocyt esOrdered By: Cody Vanegas on 05-10-2023 Monocytes/100 WBC (Bld) 11.3 % 0-10 [facility] Blood platelet mean volumeOr dered By: Cody Vanegas on 05-10-2023 Platelet mean volume (Bld) [Entitic vol] 9.3 fL 6.2-12.0 [facility] Determination of erythrocyte mean corpuscular volume (MCV)Ordered By: Cody Vanegas on 05-10-2023 MCV (RBC) [Entitic vol] 106.1 fL 81-99 [facility] Hematocrit Auto (Bld) [Volum e fraction]Ordered By: Cody Vanegas on 05-10-2023 Hematocrit (Bld) [Volume fraction] 40.2 % 37-47 [facility] Laboratory - Hematology and Cell countsOrdered By: Cody Vanegas on 05-10-2023 Erythrocyte distribution width (RBC) [Entitic vol] 56.5 fL 35.1-43.9 [facility] Erythrocyte distribution width (RBC) [Ratio] 14.6 % 11.6-14.6 [facility] Immature granulocytes/100 WBC (Bld) 0.400 % 0.0-0.9 [facility] Comment on above: IG% - Immature Granu locytes (promyelocytes, myelocytes and metamyelocytes) > 1% indicates that a LEFT SHIFT is Present. MCH (RBC) [Entitic mass] 33.5 pg 27.0-32.0 [facility] Nucleated RBC/100 WBC (Bld) [Ratio] 0 % 0-5 [facility] MCHC Auto (RBC) [Mass/Vol]Or dered By: Cody Vanegas on 05-10-2023 MCHC (RBC) [Mass/Vol] 31.6 g/dL 32-36 [facility] Platelets bldOrdered By: Franny Vanegas on 05-10-2023 Platelets (Bld) [#/Vol] 472 10*3/uL 150-450 [facility] Absolute lymphocyte countOrd ered By: Cody Vanegas on 02-14-2023 Lymphocytes Auto (Unsp spec) [#/Vol] 0.71 10*3/uL 0.83-4.51 [facility] Basophil percentageOrdered B y: Cody Vanegas on 02-14-2023 Basophils/100 WBC (Bld) 0.5 % 0-1 [facility] Bilirubin [Mass/Vol] 0.50 mg/dL 0.20-1.00 [facility] Comment on above: For patients on eltr ombopag therapy, use of Dimension [place] TBIL is not recommended. Chloride [Moles/Vol] 104 mmol/L 98-107 [facility] Eosinophils/100 WBC (Bld) 1.1 % 0-5 [facility] Glucose [Mass/Vol] 86 mg/dL 74-106 [facility] Neutrophils (Bld) [#/Vol] 4.1 10*3/uL 2.0-7.7 [facility] Neutrophils/100 WBC (Bld) 73.7 % 47-70 [facility] Potassium [Moles/Vol] 3.9 mmol/L 3.5-5.1 [facility] Protein [Mass/Vol] 6.2 g/dL 6.4-8.2 [facility] Sodium [Moles/Vol] 136 mmol/L 136-145 [facility] WBC (Bld) [#/Vol] 5.6 10*3/uL 4.4-11.0 [facility] Blood erythrocytes count (nu mber/volume)Ordered By: Cody Vanegas on 02-14-2023 RBC (Bld) [#/Vol] 3.76 10*6/uL 4.2-5.4 [facility] Blood hemoglobin measurement (mass/volume)Ordered By: Cody Vanegas on 02-14-2023 Hemoglobin (Bld) [Mass/Vol] 12.6 g/dL 12.0-15.0 [facility] Blood lymphocytes/100 leukoc ytesOrdered By: Cody Vanegas on 02-14-2023 Lymphocytes/100 WBC (Bld) 12.8 % 19-41 [facility] Blood monocytes/100 leukocyt esOrdered By: Cody Vanegas on 02-14-2023 Monocytes/100 WBC (Bld) 11.5 % 0-10 [facility] Blood platelet mean volumeOr dered By: Cody Vaneags on 02-14-2023 Platelet mean volume (Bld) [Entitic vol] 9.4 fL 6.2-12.0 [facility] Determination of erythrocyte mean corpuscular volume (MCV)Ordered By: Cody Vanegas on 02-14-2023 MCV (RBC) [Entitic vol] 105.6 fL 81-99 [facility] Hematocrit Auto (Bld) [Volum e fraction]Ordered By: Cody Vanegas on 02-14-2023 Hematocrit (Bld) [Volume fraction] 39.7 % 37-47 [facility] Iron measurement (mass/mass) Ordered By: Cody Vanegas on 02-14-2023 Iron (Unsp spec) [Mass/Mass] 62 ug/dL 50-170 [facility] Laboratory - Chemistry and C hemistry - challengeOrdered By: Cody Vanegas on 02-14-2023 ALP [Catalytic activity/Vol] 151 U/L 45-117 [facility] ALT [Catalytic activity/Vol] 23 U/L 13-56 [facility] CO2 [Moles/Vol] 26.0 mmol/L 21.0-32.0 [facility] Globulin (S) [Mass/Vol] 3.0 g/dL 2.2-4.2 [facility] Magnesium [Mass/Vol] 2.3 mg/dL 1.6-2.6 [facility] Urea nitrogen/Creatinine [Mass ratio] 26.8 mg/mg 10-20 [facility] Laboratory - Hematology and Cell countsOrdered By: Cody Vanegas on 02-14-2023 Anisocytosis Ql (Bld) 1+ [facility] Erythrocyte distribution width (RBC) [Entitic vol] 68.1 fL 35.1-43.9 [facility] Erythrocyte distribution width (RBC) [Ratio] 17.6 % 11.6-14.6 [facility] Immature granulocytes/100 WBC (Bld) 0.400 % 0.0-0.9 [facility] Comment on above: IG% - Immature Granu locytes (promyelocytes, myelocytes and metamyelocytes) > 1% indicates that a LEFT SHIFT is Present. MCH (RBC) [Entitic mass] 33.5 pg 27.0-32.0 [facility] Nucleated RBC/100 WBC (Bld) [Ratio] 0 % 0-5 [facility] MCHC Auto (RBC) [Mass/Vol]Or dered By: Cody Vanegas on 02-14-2023 MCHC (RBC) [Mass/Vol] 31.7 g/dL 32-36 [facility] No Panel InformationOrdered By: Cody Vanegas on 02-14-2023 Estimated GFR (MDRD) Amer 170 mL/min >60 [facility] Comment on above: GFR Calc Estimated GFR (MDRD) Non-Af Amer 141 mL/min >60 [facility] Comment on above: Non- GFR Calc Parathyroid Hormone (Intact) 43.2 pg/mL 18.4-80.1 [facility] Thyroid Stimulating Hormone (TSH) 1.70 uIU/mL 0.358-3.74 [facility] Vitamin D 25-Hydroxy 78.5 ng/mL [facility] Comment on above: Vitamin D 25(OH) Sta tus Range Deficiency <20 ng/mL (50nmol/L) Insufficiency 20 - 30 ng/mL (50 - 75 nmol/L) Sufficiency 30 - 100 ng/mL (75 - 250 nmol/L) Toxicity >100 ng/mL (>250 nmol/L) Platelets bldOrdered By: Franny Vanegas on 02-14-2023 Platelets (Bld) [#/Vol] 450 10*3/uL 150-450 [facility] Serum or plasma albumin gibson urement (mass/volume)Ordered By: Cody Vanegas on 02-14-2023 Albumin [Mass/Vol] 3.2 g/dL 3.2-5.0 [facility] Serum or plasma albumin/glob ulin mass ratioOrdered By: Cody Vanegas on 02-14-2023 Albumin/Globulin [Mass ratio] 1.1 {ratio} 0.9-2.4 [facility] Serum or plasma calcium gibson urement (mass/volume)Ordered By: Cody Vanegas on 02-14-2023 Calcium [Mass/Vol] 9.1 mg/dL 8.5-10.1 [facility] Serum or plasma creatinine m easurement (mass/volume)Ordered By: Cody Vanegas on 02-14-2023 Creatinine [Mass/Vol] 0.45 mg/dL 0.55-1.02 [facility] Comment on above: The validity of the calculated GFR & GFRAA in patients over 70 years has not been determined. Clinical correlation is essential. Serum or plasma ferritin johnnie surement (mass/volume)Ordered By: Cody Vanegas on 02-14-2023 Ferritin [Mass/Vol] 168 ng/mL 8-252 [facility] Serum or plasma urea nitroge n measurement (mass/volume)Ordered By: Cody Vanegas on 02-14-2023 Urea nitrogen [Mass/Vol] 12 mg/dL 7-18 [facility] Thin prep Papanicolaou smear with manual screeningOrdered By: Cody Vanegas on 02-14-2023 Thin prep Papanicolaou smear with manual screening 19 U/L 15-37 [facility] Thin prep Papanicolaou smear with manual screening 6 5-15 [facility] Absolute lymphocyte countOrd ered By: Solo Maxwell on 02-05-2023 Lymphocytes Auto (Unsp spec) [#/Vol] 1.22 10*3/uL 0.83-4.51 [facility] Basophil percentageOrdered B y: Solo Maxwell on 02-05-2023 Basophils/100 WBC (Bld) 1.1 % 0-1 [facility] Chloride [Moles/Vol] 109 mmol/L 98-107 [facility] Eosinophils/100 WBC (Bld) 2.5 % 0-5 [facility] Glucose [Mass/Vol] 84 mg/dL 74-106 [facility] Neutrophils (Bld) [#/Vol] 2.8 10*3/uL 2.0-7.7 [facility] Neutrophils/100 WBC (Bld) 58.5 % 47-70 [facility] Potassium [Moles/Vol] 3.7 mmol/L 3.5-5.1 [facility] Sodium [Moles/Vol] 140 mmol/L 136-145 [facility] WBC (Bld) [#/Vol] 4.8 10*3/uL 4.4-11.0 [facility] Blood erythrocytes count (nu mber/volume)Ordered By: Solo Maxwell on 02-05-2023 RBC (Bld) [#/Vol] 3.47 10*6/uL 4.2-5.4 [facility] Blood hemoglobin measurement (mass/volume)Ordered By: Solo Maxwell on 02-05-2023 Hemoglobin (Bld) [Mass/Vol] 11.5 g/dL 12.0-15.0 [facility] Blood lymphocytes/100 leukoc ytesOrdered By: Solo Maxwell on 02-05-2023 Lymphocytes/100 WBC (Bld) 25.7 % 19-41 [facility] Blood monocytes/100 leukocyt esOrdered By: Solo Maxwell on 02-05-2023 Monocytes/100 WBC (Bld) 11.8 % 0-10 [facility] Blood platelet mean volumeOr dered By: Solo Maxwell on 02-05-2023 Platelet mean volume (Bld) [Entitic vol] 9.5 fL 6.2-12.0 [facility] Determination of erythrocyte mean corpuscular volume (MCV)Ordered By: Solo Maxwell on 02-05-2023 MCV (RBC) [Entitic vol] 104.6 fL 81-99 [facility] Hematocrit Auto (Bld) [Volum e fraction]Ordered By: rajan Maxwell on 02-05-2023 Hematocrit (Bld) [Volume fraction] 36.3 % 37-47 [facility] Laboratory - Chemistry and C hemistry - challengeOrdered By: [facility] on 02-05-2023 CO2 [Moles/Vol] 27.0 mmol/L 21.0-32.0 [facility] Urea nitrogen/Creatinine [Mass ratio] 24.5 mg/mg 10-20 [facility] Laboratory - Hematology and Cell countsOrdered By: Solo Maxwell on 02-05-2023 Anisocytosis Ql (Bld) 1+ [facility] Erythrocyte distribution width (RBC) [Entitic vol] 71.6 fL 35.1-43.9 [facility] Erythrocyte distribution width (RBC) [Ratio] 18.6 % 11.6-14.6 [facility] Immature granulocytes/100 WBC (Bld) 0.400 % 0.0-0.9 [facility] Comment on above: IG% - Immature Granu locytes (promyelocytes, myelocytes and metamyelocytes) > 1% indicates that a LEFT SHIFT is Present. MCH (RBC) [Entitic mass] 33.1 pg 27.0-32.0 [facility] Nucleated RBC/100 WBC (Bld) [Ratio] 0 % 0-5 [facility] MCHC Auto (RBC) [Mass/Vol]Or dered By: Solo Maxwell on 08-07-2023 MCHC (RBC) [Mass/Vol] 31.7 g/dL 32-36 [facility] No Panel InformationOrdered By: Solo Maxwell on 02-05-2023 Estimated GFR (MDRD) Amer 170 mL/min >60 [facility] Comment on above: GFR Calc Estimated GFR (MDRD) Non-Af Amer 140 mL/min >60 [facility] Comment on above: Non- GFR Calc Platelets bldOrdered By: Oscar Maxwell on 02-05-2023 Platelets (Bld) [#/Vol] 276 10*3/uL 150-450 [facility] Serum or plasma calcium gibson urement (mass/volume)Ordered By: Sool Maxwell on 02-05-2023 Calcium [Mass/Vol] 8.7 mg/dL 8.5-10.1 [facility] Serum or plasma creatinine m easurement (mass/volume)Ordered By: Solo Maxwell on 02-05-2023 Creatinine [Mass/Vol] 0.45 mg/dL 0.55-1.02 [facility] Comment on above: The validity of the calculated GFR & GFRAA in patients over 70 years has not been determined. Clinical correlation is essential. Serum or plasma urea nitroge n measurement (mass/volume)Ordered By: Solo Maxwell on 02-05-2023 Urea nitrogen [Mass/Vol] 11 mg/dL 7-18 [facility] Thin prep Papanicolaou smear with manual screeningOrdered By: Solo Maxwell on 02-05-2023 Thin prep Papanicolaou smear with manual screening 4 5-15 [facility] Absolute lymphocyte countOrd ered By: Solo Maxwell on 01-29-2023 Lymphocytes Auto (Unsp spec) [#/Vol] 0.91 10*3/uL 0.83-4.51 [facility] Basophil percentageOrdered B y: Solo Maxwell on 01-29-2023 Basophils/100 WBC (Bld) 0.8 % 0-1 [facility] Chloride [Moles/Vol] 109 mmol/L 98-107 [facility] Eosinophils/100 WBC (Bld) 2.5 % 0-5 [facility] Glucose [Mass/Vol] 91 mg/dL 74-106 [facility] Neutrophils (Bld) [#/Vol] 2.4 10*3/uL 2.0-7.7 [facility] Neutrophils/100 WBC (Bld) 60.5 % 47-70 [facility] Potassium [Moles/Vol] 3.7 mmol/L 3.5-5.1 [facility] Sodium [Moles/Vol] 141 mmol/L 136-145 [facility] WBC (Bld) [#/Vol] 4.0 10*3/uL 4.4-11.0 [facility] Blood erythrocytes count (nu mber/volume)Ordered By: Solo Maxwell on 01-29-2023 RBC (Bld) [#/Vol] 3.35 10*6/uL 4.2-5.4 [facility] Blood hemoglobin measurement (mass/volume)Ordered By: Solo Maxwell on 01-29-2023 Hemoglobin (Bld) [Mass/Vol] 10.9 g/dL 12.0-15.0 [facility] Blood lymphocytes/100 leukoc ytesOrdered By: Solo Maxwell on 01-29-2023 Lymphocytes/100 WBC (Bld) 22.9 % 19-41 [facility] Blood manual differential co mment interpretation (narrative result)Ordered By: Solo Maxwell on 01-29-2023 Manual differential comment Polo (Bld) [Interp] SCANNED [facility] Blood monocytes/100 leukocyt esOrdered By: Solo Maxwell on 01-29-2023 Monocytes/100 WBC (Bld) 12.8 % 0-10 [facility] Blood platelet mean volumeOr dered By: Solo Maxwell on 01-29-2023 Platelet mean volume (Bld) [Entitic vol] 8.9 fL 6.2-12.0 [facility] Blood polychromasia detectio n by light microscopyOrdered By: Solo Maxwell on 01-29-2023 Polychromasia LM Ql (Bld) RARE [facility] Determination of erythrocyte mean corpuscular volume (MCV)Ordered By: Solo Maxwell on 01-29-2023 MCV (RBC) [Entitic vol] 102.7 fL 81-99 [facility] Hematocrit Auto (Bld) [Volum e fraction]Ordered By: Solo Maxwell on 01-29-2023 Hematocrit (Bld) [Volume fraction] 34.4 % 37-47 [facility] Laboratory - Chemistry and C hemistry - challengeOrdered By: Solo Maxwell on 01-29-2023 CO2 [Moles/Vol] 27.0 mmol/L 21.0-32.0 [facility] Urea nitrogen/Creatinine [Mass ratio] 12.5 mg/mg 10-20 [facility] - Hematology and Cell countsOrdered By: Solo Maxwell on 01-29-2023 Erythrocyte distribution width (RBC) [Entitic vol] 73.0 fL 35.1-43.9 [facility] Erythrocyte distribution width (RBC) [Ratio] 19.4 % 11.6-14.6 [facility] Immature granulocytes/100 WBC (Bld) 0.500 % 0.0-0.9 [facility] Comment on above: IG% - Immature Granu locytes (promyelocytes, myelocytes and metamyelocytes) > 1% indicates that a LEFT SHIFT is Present. MCH (RBC) [Entitic mass] 32.5 pg 27.0-32.0 [facility] Nucleated RBC/100 WBC (Bld) [Ratio] 0 % 0-5 [facility] MCHC Auto (RBC) [Mass/Vol]Or dered By: Solo Maxwell on 01-29-2023 MCHC (RBC) [Mass/Vol] 31.7 g/dL 32-36 [facility] No Panel InformationOrdered By: Solo Maxwell on 01-29-2023 Estimated GFR (MDRD) Amer 158 mL/min >60 [facility] Comment on above: GFR Calc Estimated GFR (MDRD) Non-Af Amer 130 mL/min >60 [facility] Comment on above: Non- GFR Calc Ovalocyte detectionOrdered B y: Solo Maxwell on 01-29-2023 Ovalocytes LM Ql (Bld) RARE [facility] Platelets bldOrdered By: Oscar Maxwell on 01-29-2023 Platelets (Bld) [#/Vol] 314 10*3/uL 150-450 [facility] Serum or plasma calcium gibson urement (mass/volume)Ordered By: Sathyakimberley Websteryueramonita on 01-29-2023 Calcium [Mass/Vol] 8.4 mg/dL 8.5-10.1 [facility] Serum or plasma creatinine m easurement (mass/volume)Ordered By: Brendamarshallnarayankimberley Maxwell on 01-29-2023 Creatinine [Mass/Vol] 0.48 mg/dL 0.55-1.02 [facility] Comment on above: The validity of the calculated GFR & GFRAA in patients over 70 years has not been determined. Clinical correlation is essential. Serum or plasma urea nitroge n measurement (mass/volume)Ordered By: Sathyakimberley Websteryueramonita on 01-29-2023 Urea nitrogen [Mass/Vol] 6 mg/dL 7-18 [facility] Thin prep Papanicolaou smear with manual screeningOrdered By: marshalllucrecia Darinyueramonita on 01-29-2023 Thin prep Papanicolaou smear with manual screening 5 5-15 [facility] Absolute lymphocyte countOrd ered By: Solo Darinken on 01-22-2023 Lymphocytes Auto (Unsp spec) [#/Vol] 0.95 10*3/uL 0.83-4.51 [facility] Basophil percentageOrdered B y: Sathyakimberley Websteryueramonita on 01-22-2023 Basophils/100 WBC (Bld) 0.6 % 0-1 [facility] Chloride [Moles/Vol] 109 mmol/L 98-107 [facility] Eosinophils/100 WBC (Bld) 1.9 % 0-5 [facility] Glucose [Mass/Vol] 99 mg/dL 74-106 [facility] Neutrophils (Bld) [#/Vol] 3.0 10*3/uL 2.0-7.7 [facility] Neutrophils/100 WBC (Bld) 63.7 % 47-70 [facility] Potassium [Moles/Vol] 3.5 mmol/L 3.5-5.1 [facility] Sodium [Moles/Vol] 139 mmol/L 136-145 [facility] WBC (Bld) [#/Vol] 4.7 10*3/uL 4.4-11.0 [facility] Blood erythrocytes count (nu mber/volume)Ordered By: Solo Maxwell on 01-22-2023 RBC (Bld) [#/Vol] 3.33 10*6/uL 4.2-5.4 [facility] Blood hemoglobin measurement (mass/volume)Ordered By: Solo Maxwell on 01-22-2023 Hemoglobin (Bld) [Mass/Vol] 10.8 g/dL 12.0-15.0 [facility] Blood lymphocytes/100 leukoc ytesOrdered By: Solo Maxwell on 01-22-2023 Lymphocytes/100 WBC (Bld) 20.4 % 19-41 [facility] Blood manual differential co mment interpretation (narrative result)Ordered By: Solo Maxwell on 01-22-2023 Manual differential comment Polo (Bld) [Interp] SCANNED [facility] Blood monocytes/100 leukocyt esOrdered By: Solo Maxwell on 01-22-2023 Monocytes/100 WBC (Bld) 12.5 % 0-10 [facility] Blood platelet mean volumeOr dered By: Solo Maxwell on 01-22-2023 Platelet mean volume (Bld) [Entitic vol] 9.0 fL 6.2-12.0 [facility] Determination of erythrocyte mean corpuscular volume (MCV)Ordered By: Solo Maxwell on 01-22-2023 MCV (RBC) [Entitic vol] 102.1 fL 81-99 [facility] Hematocrit Auto (Bld) [Volum e fraction]Ordered By: Solo Maxwell on 01-22-2023 Hematocrit (Bld) [Volume fraction] 34.0 % 37-47 [facility] Laboratory - Chemistry and C hemistry - challengeOrdered By: Solo Maxwell on 01-22-2023 CO2 [Moles/Vol] 26.0 mmol/L 21.0-32.0 [facility] Urea nitrogen/Creatinine [Mass ratio] 16.1 mg/mg 10-20 [facility] - Hematology and Cell countsOrdered By: Solo Maxwell on 01-22-2023 Anisocytosis Ql (Bld) 2+ [facility] Erythrocyte distribution width (RBC) [Entitic vol] 72.5 fL 35.1-43.9 [facility] Erythrocyte distribution width (RBC) [Ratio] 19.2 % 11.6-14.6 [facility] Immature granulocytes/100 WBC (Bld) 0.900 % 0.0-0.9 [facility] Comment on above: IG% - Immature Granu locytes (promyelocytes, myelocytes and metamyelocytes) > 1% indicates that a LEFT SHIFT is Present. MCH (RBC) [Entitic mass] 32.4 pg 27.0-32.0 [facility] Nucleated RBC/100 WBC (Bld) [Ratio] 0 % 0-5 [facility] MCHC Auto (RBC) [Mass/Vol]Or dered By: Solo Maxwell on 01-22-2023 MCHC (RBC) [Mass/Vol] 31.8 g/dL 32-36 [facility] Macrocytes detectionOrdered By: Solo Maxwell on 01-22-2023 Macrocytes Ql (Bld) 1+ [facility] No Panel InformationOrdered By: Solo Maxwell on 01-22-2023 Estimated GFR (MDRD) Amer 210 mL/min >60 [facility] Comment on above: GFR Calc Estimated GFR (MDRD) Non-Af Amer 174 mL/min >60 [facility] Comment on above: Non- GFR Calc Platelets bldOrdered By: Oscar Maxwell on 01-22-2023 Platelets (Bld) [#/Vol] 419 10*3/uL 150-450 [facility] Serum or plasma calcium gibson urement (mass/volume)Ordered By: Solo Maxwell on 01-22-2023 Calcium [Mass/Vol] 8.6 mg/dL 8.5-10.1 [facility] Serum or plasma creatinine m easurement (mass/volume)Ordered By: Solo Maxwell on 01-22-2023 Creatinine [Mass/Vol] 0.37 mg/dL 0.55-1.02 [facility] Comment on above: The validity of the calculated GFR & GFRAA in patients over 70 years has not been determined. Clinical correlation is essential. Serum or plasma urea nitroge n measurement (mass/volume)Ordered By: Solo Maxwell on 01-22-2023 Urea nitrogen [Mass/Vol] 6 mg/dL 7-18 [facility] Thin prep Papanicolaou smear with manual screeningOrdered By: Solo Maxwell on 01-22-2023 Thin prep Papanicolaou smear with manual screening 1+ [facility] Thin prep Papanicolaou smear with manual screening 4 5-15 [facility] Absolute lymphocyte countOrd ered By: Solo Maxwell on 01-15-2023 Lymphocytes Auto (Unsp spec) [#/Vol] 1.45 10*3/uL 0.83-4.51 [facility] Basophil percentageOrdered B y: Solo Maxwell on 01-15-2023 Basophils/100 WBC (Bld) 0.4 % 0-1 [facility] Bilirubin [Mass/Vol] 0.40 mg/dL 0.20-1.00 [facility] Comment on above: For patients on eltr ombopag therapy, use of Dimension [place] TBIL is not recommended. Chloride [Moles/Vol] 106 mmol/L 98-107 [facility] Cholesterol [Mass/Vol] 129 mg/dL <200 [facility] Comment on above: <200 mg/dL Desirable 200-240 mg/dL Borderline >240 mg/dL High Risk Eosinophils/100 WBC (Bld) 2.2 % 0-5 [facility] Glucose [Mass/Vol] 91 mg/dL 74-106 [facility] Neutrophils (Bld) [#/Vol] 4.6 10*3/uL 2.0-7.7 [facility] Neutrophils/100 WBC (Bld) 63.6 % 47-70 [facility] Potassium [Moles/Vol] 3.2 mmol/L 3.5-5.1 [facility] Protein [Mass/Vol] 4.7 g/dL 6.4-8.2 [facility] Sodium [Moles/Vol] 135 mmol/L 136-145 [facility] Triglyceride [Mass/Vol] 126 mg/dL <199 [facility] Comment on above: The drugs N-Acetylcy steine and Metamizole may falsely depress this assay.Serum Triglycerides Reference Interval Normal <150 mg/dL Borderline high 150 - 199 mg/dL High 200 - 499 mg/dL Very High > or = 500 mg/dL WBC (Bld) [#/Vol] 7.3 10*3/uL 4.4-11.0 [facility] Blood erythrocytes count (nu mber/volume)Ordered By: Solo Maxwell on 01-15-2023 RBC (Bld) [#/Vol] 3.13 10*6/uL 4.2-5.4 [facility] Blood hemoglobin measurement (mass/volume)Ordered By: Solo Maxwell on 01-15-2023 Hemoglobin (Bld) [Mass/Vol] 10.2 g/dL 12.0-15.0 [facility] Blood lymphocytes/100 leukoc ytesOrdered By: Solo Maxwell on 01-15-2023 Lymphocytes/100 WBC (Bld) 20.0 % 19-41 [facility] Blood monocytes/100 leukocyt esOrdered By: Solo Maxwell on 01-15-2023 Monocytes/100 WBC (Bld) 10.6 % 0-10 [facility] Blood platelet mean volumeOr dered By: Solo Maxwell on 01-15-2023 Platelet mean volume (Bld) [Entitic vol] 8.8 fL 6.2-12.0 [facility] Determination of erythrocyte mean corpuscular volume (MCV)Ordered By: Solo Maxwell on 01-15-2023 MCV (RBC) [Entitic vol] 98.7 fL 81-99 [facility] Hematocrit Auto (Bld) [Volum e fraction]Ordered By: Solo Maxwell on 01-15-2023 Hematocrit (Bld) [Volume fraction] 30.9 % 37-47 [facility] Laboratory - Chemistry and C hemistry - challengeOrdered By: Solo Maxwell on 01-15-2023 ALP [Catalytic activity/Vol] 86 U/L 45-117 [facility] ALT [Catalytic activity/Vol] 14 U/L 13-56 [facility] CO2 [Moles/Vol] 24.0 mmol/L 21.0-32.0 [facility] Globulin (S) [Mass/Vol] 2.5 g/dL 2.2-4.2 [facility] Urea nitrogen/Creatinine [Mass ratio] 11.7 mg/mg 10-20 [facility] - Hematology and Cell countsOrdered By: Solo Maxwell on 01-15-2023 Erythrocyte distribution width (RBC) [Entitic vol] 64.4 fL 35.1-43.9 [facility] Erythrocyte distribution width (RBC) [Ratio] 18.6 % 11.6-14.6 [facility] Immature granulocytes/100 WBC (Bld) 3.200 % 0.0-0.9 [facility] Comment on above: IG% - Immature Granu locytes (promyelocytes, myelocytes and metamyelocytes) > 1% indicates that a LEFT SHIFT is Present. MCH (RBC) [Entitic mass] 32.6 pg 27.0-32.0 [facility] Nucleated RBC/100 WBC (Bld) [Ratio] 0 % 0-5 [facility] MCHC Auto (RBC) [Mass/Vol]Or dered By: Solo Maxwell on 01-15-2023 MCHC (RBC) [Mass/Vol] 33.0 g/dL 32-36 [facility] No Panel InformationOrdered By: Solo Maxwell on 01-15-2023 Estimated GFR (MDRD) Amer 180 mL/min >60 [facility] Comment on above: GFR Calc Estimated GFR (MDRD) Non-Af Amer 148 mL/min >60 [facility] Comment on above: Non- GFR Calc Platelets bldOrdered By: Oscar Maxwell on 01-15-2023 Platelets (Bld) [#/Vol] 416 10*3/uL 150-450 [facility] Serum or plasma albumin gibson urement (mass/volume)Ordered By: Solo Maxwell on 01-15-2023 Albumin [Mass/Vol] 2.2 g/dL 3.2-5.0 [facility] Serum or plasma albumin/glob ulin mass ratioOrdered By: Solo Maxwell on 01-15-2023 Albumin/Globulin [Mass ratio] 0.9 {ratio} 0.9-2.4 [facility] Serum or plasma calcium gibson urement (mass/volume)Ordered By: Solo Maxwell on 01-15-2023 Calcium [Mass/Vol] 8.2 mg/dL 8.5-10.1 [facility] Serum or plasma cholesterol in HDL measurement (mass/volume)Ordered By: Solo Maxwell on 01-15-2023 Cholesterol in HDL [Mass/Vol] 41 mg/dL >40 [facility] Comment on above: The drugs N-Acetylcy steine and Metamizole may falsely depress this assay. Reference Range HDL <40 mg/dL Low HDL Cholesterol HDL >or= 60 mg/dL High HDL Cholesterol Serum or plasma cholesterol in VLDL measurement (mass/volume)Ordered By: Solo Maxwell on 01-15-2023 Cholesterol in VLDL [Mass/Vol] 25 mg/dL 5-40 [facility] Serum or plasma creatinine m easurement (mass/volume)Ordered By: Solo Maxwell on 01-15-2023 Creatinine [Mass/Vol] 0.43 mg/dL 0.55-1.02 [facility] Comment on above: The validity of the calculated GFR & GFRAA in patients over 70 years has not been determined. Clinical correlation is essential. Serum or plasma low density lipoprotein (LDL) cholesterol measurement (mass/volume)Ordered By: Solo Maxwell on 01-15-2023 Cholesterol in LDL [Mass/Vol] 63 mg/dL 0-130 [facility] Serum or plasma urea nitroge n measurement (mass/volume)Ordered By: Solo Maxwell on 01-15-2023 Urea nitrogen [Mass/Vol] 5 mg/dL 7-18 [facility] Thin prep Papanicolaou smear with manual screeningOrdered By: Solo Maxwell on 01-15-2023 Thin prep Papanicolaou smear with manual screening 9 U/L 15-37 [facility] Thin prep Papanicolaou smear with manual screening 5 5-15 [facility] Absolute lymphocyte countOrd ered By: Homer Zelaya on 01-13-2023 Lymphocytes Auto (Unsp spec) [#/Vol] 1.19 10*3/uL 0.83-4.51 [facility] Basophil percentageOrdered B y: China Anton on 01-13-2023 Basophil percentage [employer] [facility] Comment on above: Previous reported re sult: 0-5 SEEN /hpfEdited by: DENA on 01/13/23:0546 AMENDED REPORT 01/13/23 0546 WBC previously reported as: 0-5 SEEN /hpf Basophil percentageOrdered B y: Homer Zelaya on 01-13-2023 Basophils/100 WBC (Bld) 0.4 % 0-1 [facility] Chloride [Moles/Vol] 103 mmol/L 98-107 [facility] Eosinophils/100 WBC (Bld) 1.2 % 0-5 [facility] Glucose [Mass/Vol] 130 mg/dL 74-106 [facility] Comment on above: Fasting Glucose resu lt greater than or equal to 126 mg/dL suggests DIABETES MELLITUS per A.D.A. criteria. Neutrophils (Bld) [#/Vol] 5.2 10*3/uL 2.0-7.7 [facility] Neutrophils/100 WBC (Bld) 68.0 % 47-70 [facility] Potassium [Moles/Vol] 3.3 mmol/L 3.5-5.1 [facility] Sodium [Moles/Vol] 134 mmol/L 136-145 [facility] WBC (Bld) [#/Vol] 7.7 10*3/uL 4.4-11.0 [facility] Bilirubin Test strip Ql (U)O rdered By: China Anton on 01-13-2023 Bilirubin Ql (U) Negative Negative [facility] Blood erythrocytes count (nu mber/volume)Ordered By: Homer Zelaya on 01-13-2023 RBC (Bld) [#/Vol] 3.39 10*6/uL 4.2-5.4 [facility] Blood hemoglobin measurement (mass/volume)Ordered By: Homer Zelaya on 01-13-2023 Hemoglobin (Bld) [Mass/Vol] 11.0 g/dL 12.0-15.0 [facility] Blood lymphocytes/100 leukoc ytesOrdered By: Homer Zelaya on 01-13-2023 Lymphocytes/100 WBC (Bld) 15.5 % 19-41 [facility] Blood monocytes/100 leukocyt esOrdered By: Homer Zelaya on 01-13-2023 Monocytes/100 WBC (Bld) 12.8 % 0-10 [facility] Blood platelet mean volumeOr dered By: Homer Zelaya on 01-13-2023 Platelet mean volume (Bld) [Entitic vol] 8.5 fL 6.2-12.0 [facility] COVID-19 virus antigen assay Ordered By: Homer Zelaya on 01-13-2023 SARS-CoV-2 (COVID-19) Ag IA.rapid Ql (Resp) [facility] Culture, urineOrdered By: Letitia Walton on 01-13-2023 Bacteria identified Cx Nom (U) Culture exhibits no growth. [facility] Determination of erythrocyte mean corpuscular volume (MCV)Ordered By: Hoemr Zelaya on 01-13-2023 MCV (RBC) [Entitic vol] 95.6 fL 81-99 [facility] Hematocrit Auto (Bld) [Volum e fraction]Ordered By: Homer Zelaya on 01-13-2023 Hematocrit (Bld) [Volume fraction] 32.4 % 37-47 [facility] Ketones Test strip Ql (U)Ord ered By: China Walton on 01-13-2023 Ketones Ql (U) Negative Negative [facility] Laboratory - Chemistry and C hemistry - challengeOrdered By: Homer Zelaya on 01-13-2023 CO2 [Moles/Vol] 23.0 mmol/L 21.0-32.0 [facility] Urea nitrogen/Creatinine [Mass ratio] 10.7 mg/mg 10-20 [facility] Laboratory - Hematology and Cell countsOrdered By: Homer Zelaya on 01-13-2023 Erythrocyte distribution width (RBC) [Entitic vol] 62.3 fL 35.1-43.9 [facility] Erythrocyte distribution width (RBC) [Ratio] 18.2 % 11.6-14.6 [facility] Immature granulocytes/100 WBC (Bld) 2.100 % 0.0-0.9 [facility] Comment on above: IG% - Immature Granu locytes (promyelocytes, myelocytes and metamyelocytes) > 1% indicates that a LEFT SHIFT is Present. MCH (RBC) [Entitic mass] 32.4 pg 27.0-32.0 [facility] Nucleated RBC/100 WBC (Bld) [Ratio] 0 % 0-5 [facility] MCHC Auto (RBC) [Mass/Vol]Or dered By: Homer Zelaya on 01-13-2023 MCHC (RBC) [Mass/Vol] 34.0 g/dL 32-36 [facility] Mucus LM Ql (Urine sed)Order ed By: China Walton on 01-13-2023 Mucus Ql (Urine sed) 0 SEEN /hpf [facility] Nitrite Test strip Ql (U)Ord ered By: China Walton on 01-13-2023 Nitrite Ql (U) Negative Negative [facility] No Panel InformationOrdered By: Homer Zelaya on 01-13-2023 Estimated Creatinine Clearance Calc 28.47 ml/min [facility] Estimated GFR (MDRD) Amer 162 mL/min >60 [facility] Comment on above: GFR Calc Estimated GFR (MDRD) Non-Af Amer 134 mL/min >60 [facility] Comment on above: Non- GFR Calc Platelets bldOrdered By: Manuel Zelaya on 01-13-2023 Platelets (Bld) [#/Vol] 344 10*3/uL 150-450 [facility] Protein Test strip Ql (U)Ord ered By: China Walton on 01-13-2023 Protein Ql (U) Negative Negative [facility] Serum or plasma calcium gibson urement (mass/volume)Ordered By: Homer Zelaya on 01-13-2023 Calcium [Mass/Vol] 8.1 mg/dL 8.5-10.1 [facility] Serum or plasma creatinine m easurement (mass/volume)Ordered By: Homer Zelaya on 01-13-2023 Creatinine [Mass/Vol] 0.47 mg/dL 0.55-1.02 [facility] Comment on above: The validity of the calculated GFR & GFRAA in patients over 70 years has not been determined. Clinical correlation is essential. Serum or plasma urea nitroge n measurement (mass/volume)Ordered By: Homer Zelaya on 01-13-2023 Urea nitrogen [Mass/Vol] 5 mg/dL 7-18 [facility] Serum procalcitonin measurem entOrdered By: China Walton on 01-13-2023 Procalcitonin [Mass/Vol] 0.05 ng/mL 0.00-0.09 [facility] Comment on above: A procalcitonin (PCT ) level above 2.0 ng/mL on the first day of ICU admission is associated with a high risk for progression to severe sepsis and/or septic shock. A PCT level below 0.5 ng/mL on the first day of ICU admission is associated with a low risk for progression to severe and/or septic shock. Note: Concentrations <0.5 ng/mL do not exclude an infection on account of localized infections (without systemic signs) which can be associated with such low concentrations, or a systemic infection in its initial stages (<6 hours). Furthermore, increased procalcitonin can occur without infection. PCT concentrations between 0.5 and 2.0 ng/mL should be interpreted taking into account the patient's history. It is recommended to retest PCT within 6-24 hours if any concentrations <2 ng/mL are obtained. Squamous epithelial cells de tection in urine sediment by light microscopyOrdered By: China Walton on 01-13-2023 Epithelial cells.squamous LM Ql (Urine sed) 0-5 SEEN /hpf 5-10 [facility] Thin prep Papanicolaou smear with manual screeningOrdered By: Homer Zelaya on 01-13-2023 Thin prep Papanicolaou smear with manual screening 8 -15 [facility] Urine blood detectionOrdered By: China Walton on 01-13-2023 RBC Ql (U) Negative Negative [facility] RBC Ql (U) [employer] [facility] Comment on above: Previous reported re sult: 0-5 SEEN /hpfEdited by: DENA on 01/13/23:0546 AMENDED REPORT 01/13/23 0546 RBC-UA previously reported as: 0-5 SEEN /hpf Urine clarityOrdered By: Massiel Walton on 01-13-2023 Clarity (U) Clear Clear [facility] Urine color determinationOrd ered By: China Walton on 01-13-2023 Color (U) Yellow Yellow [facility] Urine glucose detectionOrder ed By: China Walton on 01-13-2023 Glucose Ql (U) Normal mg/dl Normal [facility] Urine leukocyte esterase det ection by dipstickOrdered By: China Walton on 01-13-2023 Leukocyte esterase Test strip Ql (U) Negative Negative [facility] Urine pHOrdered By: China Farmer olu on 01-13-2023 pH (U) 7.0 [pH] 5.0 - 8.0 [facility] Urine sediment bacteria coun t by microscopy (number/high power field)Ordered By: China Walton on 01-13-2023 Bacteria LM.HPF (Urine sed) [#/Area] 1 /[HPF] None Seen [facility] Comment on above: Previous reported re sult: 2+ /hpfEdited by: DENA on 01/13/23:0546 AMENDED REPORT 01/13/23 0546 BACTERIA previously reported as: 2+ /hpf Urine specific gravity measu rementOrdered By: China Walton on 01-13-2023 Specific gravity (U) [Rel density] 1.005 1.002-1.03 0 [facility] Urobilinogen Auto test strip Ql (U)Ordered By: China Walton on 01-13-2023 Urobilinogen Ql (U) Normal mg/dl Normal [facility] Basophil percentageOrdered B y: Homer Zelaya on 01-11-2023 Basophil percentage 2.2 mg/dL 2.5-4.9 [facility] Laboratory - Chemistry and C hemistry - challengeOrdered By: Homer Zelaya on 01-11-2023 Magnesium [Mass/Vol] 2.0 mg/dL 1.6-2.6 [facility] - Hematology and Cell countsOrdered By: Homer Zelaya on 01-11-2023 Anisocytosis Ql (Bld) 2+ [facility] Blood platelet adequacy dete ction by light microscopyOrdered By: Nagi Larios on 01-08-2023 Platelets LM Ql (Bld) ADEQUATE ADEQ [facility] Macrocytes detectionOrdered By: Nagi Larios on 01-08-2023 Macrocytes Ql (Bld) 2+ [facility] Ovalocyte detectionOrdered B y: Nagi Larios on 01-08-2023 Ovalocytes LM Ql (Bld) RARE [facility] RBC morphologyOrdered By: Ra rizo Friend on 01-08-2023 RBC morphology finding Nom (Bld) N CHROM NORMAL NORM C&C [facility] Absolute lymphocyte countOrd ered By: Homer Beaulieu on 01-07-2023 Lymphocytes Auto (Unsp spec) [#/Vol] 2.09 10*3/uL 0.83-4.51 [facility] Basophil percentageOrdered B y: Homer Beaulieu on 01-07-2023 Basophils/100 WBC (Bld) 0.3 % 0-1 [facility] Bilirubin [Mass/Vol] 0.30 mg/dL 0.20-1.00 [facility] Comment on above: For patients on eltr ombopag therapy, use of Dimension [place] TBIL is not recommended. Chloride [Moles/Vol] 103 mmol/L 98-107 [facility] Eosinophils/100 WBC (Bld) 0.8 % 0-5 [facility] Glucose [Mass/Vol] 207 mg/dL 74-106 [facility] Comment on above: Glucose result great er than or equal to 200 mg/dLsuggests DIABETES MELLITUS per A.D.A. criteria. Neutrophils (Bld) [#/Vol] 12.0 10*3/uL 2.0-7.7 [facility] Neutrophils/100 WBC (Bld) 75.8 % 47-70 [facility] Potassium [Moles/Vol] 4.2 mmol/L 3.5-5.1 [facility] Protein [Mass/Vol] 4.6 g/dL 6.4-8.2 [facility] Sodium [Moles/Vol] 132 mmol/L 136-145 [facility] WBC (Bld) [#/Vol] 15.8 10*3/uL 4.4-11.0 [facility] Blood erythrocytes count (nu mber/volume)Ordered By: Homer Beaulieu on 01-07-2023 RBC (Bld) [#/Vol] 2.15 10*6/uL 4.2-5.4 [facility] Blood hemoglobin measurement (mass/volume)Ordered By: Homer Beaulieu on 01-07-2023 Hemoglobin (Bld) [Mass/Vol] 7.6 g/dL 12.0-15.0 [facility] Blood lymphocytes/100 leukoc ytesOrdered By: Homer Beaulieu on 01-07-2023 Lymphocytes/100 WBC (Bld) 13.2 % 19-41 [facility] Blood monocytes/100 leukocyt esOrdered By: Homer Beaulieu on 01-07-2023 Monocytes/100 WBC (Bld) 9.2 % 0-10 [facility] Blood platelet mean volumeOr dered By: Homer Beaulieu on 01-07-2023 Platelet mean volume (Bld) [Entitic vol] 8.9 fL 6.2-12.0 [facility] Determination of erythrocyte mean corpuscular volume (MCV)Ordered By: Homer Beaulieu on 01-07-2023 MCV (RBC) [Entitic vol] 106.0 fL 81-99 [facility] Direct bilirubinOrdered By: Homer Beaulieu on 01-07-2023 Bilirubin.direct [Mass/Vol] 0.09 mg/dL 0.00-0.30 [facility] Hematocrit Auto (Bld) [Volum e fraction]Ordered By: Homer Beaulieu on 01-07-2023 Hematocrit (Bld) [Volume fraction] 22.8 % 37-47 [facility] INR in Blood by Coagulation assayOrdered By: Homer Beaulieu on 01-07-2023 INR Coag (Bld) [Relative time] 1.1 {INR} [facility] Laboratory - Chemistry and C hemistry - challengeOrdered By: Homer Beaulieu on 01-07-2023 ALP [Catalytic activity/Vol] 89 U/L 45-117 [facility] ALT [Catalytic activity/Vol] 17 U/L 13-56 [facility] CO2 [Moles/Vol] 25.0 mmol/L 21.0-32.0 [facility] Globulin (S) [Mass/Vol] 2.3 g/dL 2.2-4.2 [facility] Urea nitrogen/Creatinine [Mass ratio] 57.3 mg/mg 10-20 [facility] Laboratory - CoagulationOrde red By: Homer Beaulieu on 01-07-2023 aPTT Coag (Bld) [Time] 26.5 s 24.1-36.2 [facility] PT Coag (PPP) [Time] 14.3 s 11.7-14.9 [facility] - Hematology and Cell countsOrdered By: Homer Beaulieu on 01-07-2023 Erythrocyte distribution width (RBC) [Entitic vol] 59.4 fL 35.1-43.9 [facility] Erythrocyte distribution width (RBC) [Ratio] 15.2 % 11.6-14.6 [facility] Immature granulocytes/100 WBC (Bld) 0.700 % 0.0-0.9 [facility] Comment on above: IG% - Immature Granu locytes (promyelocytes, myelocytes and metamyelocytes) > 1% indicates that a LEFT SHIFT is Present. MCH (RBC) [Entitic mass] 35.3 pg 27.0-32.0 [facility] Nucleated RBC/100 WBC (Bld) [Ratio] 0 % 0-5 [facility] Lower GI hemoglobin IA Ql (S tl)Ordered By: Homer Beaulieu on 01-07-2023 Stool Occult Blood (MAURICIO) Positive [facility] MCHC Auto (RBC) [Mass/Vol]Or dered By: Homer Beaulieu on 01-07-2023 MCHC (RBC) [Mass/Vol] 33.3 g/dL 32-36 [facility] No Panel InformationOrdered By: Homer Beaulieu on 01-07-2023 Estimated Creatinine Clearance Calc 28.47 ml/min [facility] Estimated GFR (MDRD) Amer 127 mL/min >60 [facility] Comment on above: GFR Calc Estimated GFR (MDRD) Non-Af Amer 105 mL/min >60 [facility] Comment on above: Non- GFR Calc Platelets bldOrdered By: Osbaldo Beaulieu on 01-07-2023 Platelets (Bld) [#/Vol] 398 10*3/uL 150-450 [facility] Serum or plasma albumin gibson urement (mass/volume)Ordered By: Homer Beaulieu on 01-07-2023 Albumin [Mass/Vol] 2.3 g/dL 3.2-5.0 [facility] Serum or plasma calcium gibson urement (mass/volume)Ordered By: Homer Beaulieu on 01-07-2023 Calcium [Mass/Vol] 8.2 mg/dL 8.5-10.1 [facility] Serum or plasma creatinine m easurement (mass/volume)Ordered By: Homer Beaulieu on 01-07-2023 Creatinine [Mass/Vol] 0.58 mg/dL 0.55-1.02 [facility] Comment on above: The validity of the calculated GFR & GFRAA in patients over 70 years has not been determined. Clinical correlation is essential. Serum or plasma urea nitroge n measurement (mass/volume)Ordered By: Homer Beaulieu on 01-07-2023 Urea nitrogen [Mass/Vol] 33 mg/dL 7-18 [facility] Thin prep Papanicolaou smear with manual screeningOrdered By: Homer Beaulieu on 01-07-2023 Thin prep Papanicolaou smear with manual screening 13 U/L 15-37 [facility] Thin prep Papanicolaou smear with manual screening 4 5-15 [facility] Absolute lymphocyte countOrd ered By: Atif Ndiaye on 12-09-2022 Lymphocytes Auto (Unsp spec) [#/Vol] 0.79 10*3/uL 0.83-4.51 [facility] Basophil percentageOrdered B y: Atif Ndiaye on 12-09-2022 Basophils/100 WBC (Bld) 0.7 % 0-1 [facility] Chloride [Moles/Vol] 108 mmol/L 98-107 [facility] Eosinophils/100 WBC (Bld) 2.3 % 0-5 [facility] Glucose [Mass/Vol] 107 mg/dL 74-106 [facility] Comment on above: Fasting Glucose resu lt from 100 to 125 mg/dL suggests IMPAIRED HOMEOSTASIS per A.D.A. criteria. Neutrophils (Bld) [#/Vol] 3.8 10*3/uL 2.0-7.7 [facility] Neutrophils/100 WBC (Bld) 67.7 % 47-70 [facility] Potassium [Moles/Vol] 3.6 mmol/L 3.5-5.1 [facility] Sodium [Moles/Vol] 137 mmol/L 136-145 [facility] WBC (Bld) [#/Vol] 5.7 10*3/uL 4.4-11.0 [facility] Blood erythrocytes count (nu mber/volume)Ordered By: Atif Ndiaye on 12-09-2022 RBC (Bld) [#/Vol] 3.57 10*6/uL 4.2-5.4 [facility] Blood hemoglobin measurement (mass/volume)Ordered By: Atif Ndiaye on 12-09-2022 Hemoglobin (Bld) [Mass/Vol] 12.2 g/dL 12.0-15.0 [facility] Blood lymphocytes/100 leukoc ytesOrdered By: Atif Ndiaye on 12-09-2022 Lymphocytes/100 WBC (Bld) 14.0 % 19-41 [facility] Blood monocytes/100 leukocyt esOrdered By: Aitf Ndiaye on 12-09-2022 Monocytes/100 WBC (Bld) 14.9 % 0-10 [facility] Blood platelet mean volumeOr dered By: Atif Ndiaye on 12-09-2022 Platelet mean volume (Bld) [Entitic vol] 9.0 fL 6.2-12.0 [facility] Determination of erythrocyte mean corpuscular volume (MCV)Ordered By: Atif Ndiaye on 12-09-2022 MCV (RBC) [Entitic vol] 102.5 fL 81-99 [facility] Hematocrit Auto (Bld) [Volum e fraction]Ordered By: Atif Ndiaye on 12-09-2022 Hematocrit (Bld) [Volume fraction] 36.6 % 37-47 [facility] Laboratory - Chemistry and C hemistry - challengeOrdered By: Atif Ndiaye on 12-09-2022 CO2 [Moles/Vol] 22.0 mmol/L 21.0-32.0 [facility] Urea nitrogen/Creatinine [Mass ratio] 26.0 mg/mg 10-20 [facility] Laboratory - Hematology and Cell countsOrdered By: Atif Ndiaye on 12-09-2022 Erythrocyte distribution width (RBC) [Entitic vol] 60.0 fL 35.1-43.9 [facility] Erythrocyte distribution width (RBC) [Ratio] 15.9 % 11.6-14.6 [facility] Immature granulocytes/100 WBC (Bld) 0.400 % 0.0-0.9 [facility] Comment on above: IG% - Immature Granu locytes (promyelocytes, myelocytes and metamyelocytes) > 1% indicates that a LEFT SHIFT is Present. MCH (RBC) [Entitic mass] 34.2 pg 27.0-32.0 [facility] Nucleated RBC/100 WBC (Bld) [Ratio] 0 % 0-5 [facility] MCHC Auto (RBC) [Mass/Vol]Or dered By: Atif Ndiaye on 12-09-2022 MCHC (RBC) [Mass/Vol] 33.3 g/dL 32-36 [facility] No Panel InformationOrdered By: Atif Ndiaye on 12-09-2022 Estimated Creatinine Clearance Calc 28.47 ml/min [facility] Estimated GFR (MDRD) Amer 229 mL/min >60 [facility] Comment on above: GFR Calc Estimated GFR (MDRD) Non-Af Amer 190 mL/min >60 [facility] Comment on above: Non- GFR Calc Platelets bldOrdered By: Ramirez Ndiaye on 12-09-2022 Platelets (Bld) [#/Vol] 393 10*3/uL 150-450 [facility] Serum or plasma calcium gibson urement (mass/volume)Ordered By: Atif Ndiaye on 12-09-2022 Calcium [Mass/Vol] 8.2 mg/dL 8.5-10.1 [facility] Serum or plasma creatinine m easurement (mass/volume)Ordered By: Atif Ndiaye on 12-09-2022 Creatinine [Mass/Vol] 0.35 mg/dL 0.55-1.02 [facility] Comment on above: The validity of the calculated GFR & GFRAA in patients over 70 years has not been determined. Clinical correlation is essential. Serum or plasma urea nitroge n measurement (mass/volume)Ordered By: Atif Ndiaye on 12-09-2022 Urea nitrogen [Mass/Vol] 9 mg/dL 7-18 [facility] Thin prep Papanicolaou smear with manual screeningOrdered By: Atif Ndiaye on 12-09-2022 Thin prep Papanicolaou smear with manual screening 7 5-15 [facility] Basophil percentageOrdered B y: Terrence Jones on 12-08-2022 Basophil percentage 0 SEEN /hpf 0-5 [facility] Bilirubin Test strip Ql (U)O rdered By: Terrence Jones on 12-08-2022 Bilirubin Ql (U) Negative Negative [facility] Ketones Test strip Ql (U)Ord ered By: Terrence Jones on 12-08-2022 Ketones Ql (U) 15 mg/dl Negative [facility] Mucus LM Ql (Urine sed)Order ed By: Terrence Jones on 12-08-2022 Mucus Ql (Urine sed) 0 SEEN /hpf [facility] Nitrite Test strip Ql (U)Ord ered By: Terrence Jones on 12-08-2022 Nitrite Ql (U) Negative Negative [facility] Protein Test strip Ql (U)Ord ered By: Terrence Jones on 12-08-2022 Protein Ql (U) Negative Negative [facility] Squamous epithelial cells de tection in urine sediment by light microscopyOrdered By: Terrence Jones on 12-08-2022 Epithelial cells.squamous LM Ql (Urine sed) 0-5 SEEN /hpf 5-10 [facility] Urine blood detectionOrdered By: Terrence Jones on 12-08-2022 RBC Ql (U) Negative Negative [facility] RBC Ql (U) 0 SEEN /hpf 0-5 [facility] Urine clarityOrdered By: Bailee Jones on 12-08-2022 Clarity (U) Sl. Cloudy Clear [facility] Urine color determinationOrd ered By: Terrence Jones on 12-08-2022 Color (U) Yellow Yellow [facility] Urine glucose detectionOrder ed By: Terrence Jones on 12-08-2022 Glucose Ql (U) Normal mg/dl Normal [facility] Urine leukocyte esterase det ection by dipstickOrdered By: Terrence Jones on 12-08-2022 Leukocyte esterase Test strip Ql (U) Negative Negative [facility] Urine pHOrdered By: Terrence lamb on 12-08-2022 pH (U) 7.0 [pH] 5.0 - 8.0 [facility] Urine sediment bacteria coun t by microscopy (number/high power field)Ordered By: Terrence Jones on 12-08-2022 Bacteria LM.HPF (Urine sed) [#/Area] 0 /[HPF] None Seen [facility] Urine specific gravity measu rementOrdered By: Terrence Jones on 12-08-2022 Specific gravity (U) [Rel density] 1.005 1.002-1.03 0 [facility] Urobilinogen Auto test strip Ql (U)Ordered By: Terrence Jones on 12-08-2022 Urobilinogen Ql (U) Normal mg/dl Normal [facility] COVID-19 virus antigen assay Ordered By: Dr. Vanegas on 09-05-2022 SARS-CoV-2 (COVID-19) Ag IA.rapid Ql (Resp) Not detected Not Detect [facility] Comment on above: Normal Reference Ran ge: Not DetectedMethod:(RT-PCR) real-time reverse transcriptase PCRLuminex Pebble Instrument*The Food and Drug Administration (FDA) has issued an Emergency Use Authorization (EAU) for the MERARY SARS-CoV-2 Assay for the rapid detection of the virus that causes COVID-19. This test has been validated, but the FDAs independent review of this validation is pending.*Negative results do not preclude infection and should not be used as the sole basis for treatment or patient management. Optimum specimen types and timing for peak viral levels during infections caused by SARS-CoV-2 have not been determined. Collection of multiple specimens from the same patient may be necessary to detect the virus. The possibility of a false negative result should be considered if the patient has clinical presentation or has had recent exposure. Laboratory - Chemistry and C hemistry - challengeOrdered By: Dr. Vanegas on 08-31-2022 Cobalamin (Vitamin B12) [Mass/Vol] 530 pg/mL 211-911 [facility] CEA Body Fluidon 01-31-2020 CEA Body Fluid SEE BELOW Normal [facility] Comment on above: Result Comment: Sour ce, Fluid SEE BELOW PANCREATIC CYST BF CEA, Fluid 957.7 Unit: ng/mL (NOTE) INTERPRETIVE INFORMATION: Carcinoembryonic Antigen, Fluid The Ramirez CEA electrochemiluminescent immunoassay was used. Results obtained with different assay methods or kits cannot be used interchangeably. The CEA assay value, regardless of level, should not be interpreted as evidence for the presence or absence of malignant disease. For information on body fluid reference ranges and/or interpretive guidance visit [email or web address]/bodyfluids/ Test developed and characteristics determined by [facility]. See Compliance Statement B: [employer]/CS Performed By: [facility] [address] [place] [address] De Icer Installer: Ozzy Eaton MD, MS Performing Laboratory: [place] [address] [place] [address] Performed By: #### C EABX #### [place] [address] Amylase,Body Fluidon 020 Specimen type Nom (Spec) See Below Normal [facility] Comment on above: Result Comment: Panc reatic Cyst Fluid Performed By: #### A MYBF #### [place] [address] Amylase, Body Fluid 3 U/L Normal [facility] Comment on above: Result Comment: Pleu ral fluids: Amylase measurement in pleural fluid is considered a useful test for detecting amylase-rich effusions, which may be caused by exudative conditions associated with pancreatitis, esophageal rupture, malignancy, pneumonia, and liver cirrhosis. A ratio of pleural fluid amylase to a concurrent serum amylase >1 is defined as an amylase-rich pleural effusion. Peritoneal fluids and drainage fluids: Pancreatic damage causes extravasation of amylase from exocrine cells into peritoneal space. In cases of pancreatitis, fluid amylase should be at least several-fold times higher in fluid of pancreatic origin compared to concurrent serum amylase values. Pancreatic cyst fluid: Pancreatic cyst fluid amylase may aid in characterizing tumors and should be interpreted along with other clinical and laboratory information. Performed By: #### A MYBF #### [place] [address] CEA Body Fluidon 01-28-2020 Specimen type Nom (Spec) Pancreat cyst Normal [facility] Comment on above: Performed By: #### C EABX #### [place] [address] Cytology, Medicalon 01-28-20 20 Cytology, Medical Test performed at [place] [address] NAME: KELLIE HUDSON REQUESTING: SAUL ROWLAND MD DIAGNOSIS HEAD OF PANCREAS, FINE NEEDLE ASPIRATION - FEATURES SUGGEST A MUCINOUS CYSTIC NEOPLASM. PAUCICELLULAR SPECIMEN. OVERTLY MALIGNANT FEATURES NOT APPRECIATED. SPECIMEN: A) FAP, PANCREATIC MASS CYST Description: Materials Prepared & Examined: Volume: ......... 20 # of Monolayers: .......... 1 Clear: ............. Y # of Slides: ................. Other: ............. 1 COLORLESS Electronically Signed: 02/02/2020 Screened by: [place]ON ELAINE, CT (ASCP) Signed Out by: CAROLANN CARUSO M.D., PATHOLOGIST Printed on: February 02, 2020 Page 1 of 1 Normal [facility] Comment on above: Performed By: #### C YTOM #### [place] [address] CT-Abdomen WITH IV Contrast IMPORTon 11-27-2019 CT-Abdomen WITH IV Contrast IMPORT Images were obtained outside of [facility] Normal [facility] MA MAMMOGRAM SCREENING BILAT ERAL W/TOMOon 11-10-2019 MA MAMMOGRAM SCREENING BILATERAL W/PEGGY ORIGINAL FROM: [address] [address] PROCEDURE FOR: KELLIE HUDSON [address] [place] [id number] Home: PID#: [id number] Exam#: [id number] : 1935 Age: 84 TO: CODY MICHAEL DO [address] [facility] [address] [place] [address] #[id number] BILATERAL DIGITAL SCREENING MAMMOGRAM 3D/2D WITH CAD WITH MEDIOLATERAL OBLIQUE CRANIOCAUDAL: 11/10/2019 Comparison is made to exams dated: 03/24/2014 mammogram and 02/03/2013 mammogram - [facility]. There are scattered fibroglandular elements in both breasts. Current study was also evaluated with a Computer Aided Detection (CAD) system. There are benign calcifications in both breasts. No significant masses, calcifications, or other findings are seen in either breast. There has been no significant interval change. IMPRESSION: BENIGN There is no mammographic evidence of malignancy. A 1 year screening mammogram is recommended.(11/10/2020) HOMER marroquin/lauren:11/10/2019 17:04:15 Crisis Mental Health Therapist(s): KRANTHI BAXTER RT (R) (M) (CT), [facility] letter sent: Normal BI-RADS 1&2 Mammogram BI-RADS: 2 Benign Normal [facility] ([place]) BMPon 06-20-2018 Anion gap molar conc 5 mmol/L Normal 5-16 [facility] [place] Comment on above: Order Comment: Donna s: M Is This Patient Going To Surgery? Y Surgery Date: 06/19/18 Performed By: #### L 500.87013, L500.09539, L500.21010, L500.28378 ####[facility] [id number] [place], [place] [address]Xh# [phone] Calcium mass conc 8.0 mg/dL Low 8.5-10.1 [facility] [place] Comment on above: Order Comment: Donna s: M Is This Patient Going To Surgery? Y Surgery Date: 06/19/18 Performed By: #### L 500.66348, L500.77737, L500.83399, L500.33048 ####[facility] [id number] [place], [place] [address]Xy# [phone] Chloride molar conc 106 mmol/L Normal 98-107 [facility] [place] Comment on above: Order Comment: Donna s: M Is This Patient Going To Surgery? Y Surgery Date: 06/19/18 Performed By: #### L 500.15191, L500.15769, L500.15757, L500.63626 ####[facility] [id number] [place], [place] [address]Nn# [phone] CO2 molar conc 26 mmol/L Normal 21-32 [facility] [place] Comment on above: Order Comment: Donna s: M Is This Patient Going To Surgery? Y Surgery Date: 06/19/18 Performed By: #### L 500.56027, L500.43133, L500.11308, L500.03008 ####[facility] [id number] [place], [place] [address]Ps# [phone] Creatinine mass conc 0.623 mg/dL Normal 0.510-0 .95 0 [facility] [place] Comment on above: Order Comment: Donna s: M Is This Patient Going To Surgery? Y Surgery Date: 06/19/18 Result Comment: Ruby ents receiving either N-Acetylcysteine (NAC) or Metamizole prior to venipuncture, may have falsely depressed results. Performed By: #### L 500.87236, L500.63722, L500.72686, L500.45131 ####[facility] [id number] [place], [place] [address]Zt# [phone] Glucose mass conc 132 mg/dL High 70-100 [facility] Comment on above: Order Comment: Donna s: M Is This Patient Going To Surgery? Y Surgery Date: 06/19/18 Result Comment: 70-1 00- Normal Fasting; 100-125 Impaired Fasting; greater than 126 on more than one result- Diabetes. ADA guidelines. Results may be falsely elevated after the administration of Sulfapyridine. Results may be falsely depressed after the administration of Sulfasalazine. Performed By: #### L 500.29197, L500.57627, L500.90366, L500.16486 ####[facility] [id number] [place], [place] [address]Vq# [phone] Potassium molar conc 4.2 mmol/L Normal 3.5-5.1 [facility] Comment on above: Order Comment: Donna s: M Is This Patient Going To Surgery? Y Surgery Date: 06/19/18 Performed By: #### L 500.63212, L500.13571, L500.58965, L500.32485 ####[facility] [id number] [place], [place] [address]Be# [phone] Sodium molar conc 137 mmol/L Normal 136-145 [facility] Comment on above: Order Comment: Campu s: M Is This Patient Going To Surgery? Y Surgery Date: 06/19/18 Performed By: #### L 500.58994, L500.87523, L500.13042, L500.79465 ####[facility] [id number] [place], [place] [address]He# [phone] Urea nitrogen mass conc 9 mg/dL Normal 7-26 [facility] Comment on above: Order Comment: Oswaldou s: M Is This Patient Going To Surgery? Y Surgery Date: 06/19/18 Performed By: #### L 500.89366, L500.18423, L500.16900, L500.48707 ####[facility] [id number] [place], [place] [address]Eb# [phone] Urea nitrogen/Creatinine mass ratio 15 mg/mg Normal 15-24 [facility] Comment on above: Order Comment: Campu s: M Is This Patient Going To Surgery? Y Surgery Date: 06/19/18 Performed By: #### L 500.06585, L500.43389, L500.49957, L500.13222 ####[facility] [id number] [place], [place] [address]Ad# [phone] CBCon 06-20-2018 Erythrocyte distribution width Ratio (RBC) 14.0 % Normal 11-14.5 [facility] Comment on above: Order Comment: Oswaldou s: M Is This Patient Going To Surgery? Y Surgery Date: 06/19/18 Performed By: #### L 200.18985 ####[facility] [id number] [place], [place] [address]Wo# [phone] Hematocrit Volume Fraction (Bld) 30.7 % Low 35.0-47.0 [facility] Comment on above: Order Comment: Oswaldou s: M Is This Patient Going To Surgery? Y Surgery Date: 06/19/18 Performed By: #### L 200.06307 ####[facility] [id number] [place], [place] [address]Pj# [phone] Hemoglobin mass conc (Bld) 10.4 g/dL Low 11.5-15.5 [facility] Comment on above: Order Comment: Oswaldou s: M Is This Patient Going To Surgery? Y Surgery Date: 06/19/18 Performed By: #### L 200.21288 ####[facility] [id number] [place], [place] [address]Bs# [phone] MCHC mass conc (RBC) 33.9 g/dL Normal 32.0-36.0 [facility]: Order Comment: Campu s: M Is This Patient Going To Surgery? Y Surgery Date: 06/19/18 Performed By: #### L 200.44693 ####[facility] [id number] [place], [place] [address]Bb# [phone] MCV Entitic volume (RBC) 95.9 fL Normal 80.0-99.0 [facility] Comment on above: Order Comment: Campu s: M Is This Patient Going To Surgery? Y Surgery Date: 06/19/18 Performed By: #### L 200.59707 ####[facility] [id number] [place], [place] [address]Gi# [phone] Nucleated RBC/100 WBC Ratio (Bld) 0.0 % Normal Less than 1 [facility] Comment on above: Order Comment: Oswaldou s: M Is This Patient Going To Surgery? Y Surgery Date: 06/19/18 Performed By: #### L 200.53182 ####[facility] [id number] [place], [place] [address]Zl# [phone] Platelet mean volume Entitic volume (Bld) 9.4 fL Normal 9.4-12.4 [facility] Comment [facility] above: Order Comment: Campu s: M Is This Patient Going To Surgery? Y Surgery Date: 06/19/18 Performed By: #### L 200.67889 ####[facility] [id number] [place], [place] [address]Ov# [phone] Platelets #/vol (Bld) 315 K/CU MM Normal 150-450 [facility] [place] Comment on above: Order Comment: Campu s: M Is This Patient Going To Surgery? Y Surgery Date: 06/19/18 Performed By: #### L 200.95906 ####[facility] [id number] [place], [place] [address]Vk# [phone] RBC #/vol (Bld) 3.20 M/CU MM Low 3.90-5.30 [facility] [place] Comment on above: Order Comment: Oswaldou s: M Is This Patient Going To Surgery? Y Surgery Date: 06/19/18 Performed By: #### L 200.67882 ####[facility] [id number] [place], [place] [address]Nu# [phone] WBC #/vol (Bld) 8.8 K/CUMM Normal 4.5-11.0 [facility] Comment on above: Order Comment: Oswaldou s: M Is This Patient Going To Surgery? Y Surgery Date: 06/19/18 Performed By: #### L 200.55497 ####[facility] [id number] [place], [place] [address]Ht# [phone] Tyshawn 06-20-2018 FERR 97.2 NG/ML Normal 8.0-307.0 [facility] Comment on above: Order Comment: Oswaldou s: M Is This Patient Going To Surgery? Y Surgery Date: 06/19/18 Performed By: #### L 500.01059, L500.54787, L500.03728, L500.60542 ####[facility] [id number] [place], [place] [address]Sx# [phone] GFR ESTon 06-20-2018 IF AMER Greater than 60 Normal [facility] Comment [facility] above: Order Comment: Oswaldou s: M Is This Patient Going To Surgery? Y Surgery Date: 06/19/18 Performed By: #### L 500.94534, L500.01550, L500.82940, L500.07269 ####[facility] [id number] [place], [place] [address]Xn# [phone] IF non-AFR AMER Greater than 60 Normal [facility] Comment on above: Order Comment: Donna s: M Is This Patient Going To Surgery? Y Surgery Date: 06/19/18 Performed By: #### L 500.13620, L500.26621, L500.01093, L500.04144 ####[facility] [id number] [place], [place] [address]Zf# [phone] IRON PANELon 06-20-2018 Iron mass conc 36 ug/dL Low 50-170 [facility] Comment on above: Order Comment: Oswaldou s: M Is This Patient Going To Surgery? Y Surgery Date: 06/19/18 Result Comment: Ruby ents treated with metal-binding drugs (e.g.deferoxamine) may have depressed iron values, as chelated iron may not properly react in the Siemens iron assay. Performed By: #### L 500.88335, L500.84594, L500.75588, L500.74412 ####[facility] [id number] [place], [place] [address]Cn# [phone] IRON SAT 14 % Low 22-44 [facility] Comment on above: Order Comment: Donna s: M Is This Patient Going To Surgery? Y Surgery Date: 06/19/18 Performed By: #### L 500.90265, L500.57160, L500.14708, L500.59669 ####[facility] [id number] [place], [place] [address]Sb# [phone] TIBC 266 UG/DL Normal 221-481 [facility] Comment on above: Order Comment: Oswaldou s: M Is This Patient Going To Surgery? Y Surgery Date: 06/19/18 Performed By: #### L 500.45050, L500.02203, L500.15844, L500.04507 ####[facility] [id number] [place], [place] [address]Xr# [phone] OTDSon 06-20-2018 OTDS Occupational Therapy Inpatient Last Visit Note The [...] contact the Acute Therapy Department at extension [phone] Services: Total Billed: 60 minutes (Timed: 60, Untimed: 0) [facility] PATIENT NAME: KELLIE HUDSON [address] [place] MEDICAL REC #: [id number] [place] [address] ADMIT DATE: SERVICE DATE: 06/20/18 Occup. Therapy Discharge Summary ATTENDING PHY: Abebe Ibarra DO 45.00 Timed: [45503] ADL-HOME MANAGEMENT EA 15 MIN 15.00 Timed: [70182] THER ACTIVITIES / 15 MIN 0.00 Untimed: [] OT Treatment General ORDER Signed by: LIN LANIER/Marin 06/20/2018 09:54:05 - CoSigned By: SYLWIA KISER/Marin 06/20/2018 10:27:42 AM [facility] PATIENT NAME: KELLIE HUDSON [facility] [address] MEDICAL REC #: [id number] [place] [address] ADMIT DATE: SERVICE DATE: 06/20/18 Occup. Therapy Discharge Summary ATTENDING PHY: Abebe Ibarra DO Normal [facility] PROG.ORTHOon 06-20-2018 Protein mass conc [facility]: [facility] [address] [address] Unit Number: [id number] Progress Note-Ortho Patient Status: REG SDC Attending Doctor: Abebe Ibarra DO Service Date: 06/20/18 1201 Progress Note - Ortho Subjective S: (2 [...] Temp 97.9 06/20 730 Pulse 70 06/20 0730 Resp 18 06/20 730 O2 Delivery NASAL CANNULA 06/20 315 O2 Flow Rate 2 06/20 315 Physical Exam Left lower extremity -Skin/dressing: Bandage is moderately saturated at distal third. No excessive erythema or unexpected drainage noted -Calf is nontender to palpation -Dorsiflexion and plantarflexion 5/5 Diagnostic Data Lab 24hr (CBC/BMP Allyson) 06/20/18 0508: [Embedded Image Not Available] Anion [...] is to follow-up in 3 weeks with sc Patient to be discharged home today Stable Problems Problems not specifically addressed in the above plan are stable and do not warrant adjustment of the current method of therapy. Disclaimer This dictation was created using voice recognition software. Phonetic and/or minor grammatical errors may exist. eSign Date and Time Mary Jane Vigil PAC Verified/Reviewed by 06/20/18 1206 Abebe Ibarra DO [facility] Protein mass conc [facility] PTDSon 06-20-2018 PTDS Physical Therapy Inpatient Last Visit Note The inpatient Physical Therapy services are discontinued at this time for the following reasons: Goals Met. WRAPPER OPENER has assisted with documenting discharge plan and [...] was discussed with patient and agreed upon. [facility] PATIENT NAME: KELLIE HUDSON [address] [facility] [address] MEDICAL REC #: [id number] [place] [address] ADMIT DATE: SERVICE DATE: 06/20/18 Physical Therapy Discharge Summary ATTENDING PHY: Abebe Ibarra DO If there are any questions regarding this service, please contact the Acute Therapy Department at extension [phone] Services: Total Billed: 28 minutes (Timed: 28, Untimed: 0) 28.00 Timed: [78045] GAIT TRAIN EA 15 MIN 0.00 Untimed: [] PT Treatment- General ORDER Signed by: LALO SHARMA PTA 06/20/2018 10:52:26 - CoSigned By: Kriss Rodrigues 06/20/2018 11:28:18 AM [facility] PATIENT NAME: KELLIE HUDSON [facility] [address] MEDICAL REC #: [id number] [place] [address] ADMIT DATE: SERVICE DATE: 06/20/18 Physical Therapy Discharge Summary ATTENDING PHY: Abebe Ibarra DO [facility] 06-19-2018 CONSULTATION-H&P [facility] Patient Name: KELLIE HUDSON [facility] Date of : [address] [address] Unit Number: [id number] CONSULTATION-HandP [place] [facility]ending Doctor: Abebe Ibarra DO Service Date: 06/19/18 1550 FUAD BURR 06/19/18 1550: History of Present Illness Referring Physician Abebe Ibarra DO Consulted Provider Jody Daugherty DO Source of Information Patient Reason for Consult MEDICAL MANAGEMENT Living Situation Home - Independent History of Present Illness Patient is an 82-year-old female with past medical history of asthma, arthritis, and basal cell skin cancer, who presents to [facility] 06[facility]19 for left total knee arthroplasty by Dr. Ibarra. Patient states she has had left knee pain for several years she has had gel injectionS, tried sfrc-qqj-yfcutja pain medication, had her knee drained, and [...] skin cancer Past Surgical History Heart cath 2014, cholecystectomy, left hip replacement, right shoulder procedure, [...] on 06/05/18 1122 Last Action: Reviewed on 06/19/1853 by ANGEL TOM Albuterol Inhaler (Ventolin 90MCG Inhaler) 1 PUFF INHALEREA 2 PUFF INH Q4HPRN PRN SOB, Ref 0 (Reported) Entered as Reported by FLORENTIN ARREOLA on 06/03/18 1140 Last Action: Reviewed on 06/19/1853 by ANGEL TOM Calcium Phosphate Trib/Vit D3 (Citracal + D3 Gummies) 1 EACH TAB.CHEW 1 EACH PO QID, Ref 0 (Reported) LD 06/08/18 Entered as Reported by FLORENTIN ARREOLA on 06/03/18 1135 Last Action: Reviewed on 06/19/1853 by ANGEL TOM Cholecalciferol (Vitamin D3) (Vitamin [...] as Reported by FLORENTIN ARREOLA on 06/03/18 113 Last Action: Reviewed on 06/19/18952 by ANGEL TOM Fluticasone Furoate (Flonase Sensimist) 5.9 ML SPRAY.SUSP 1 SPRAYS PRN PRN MUCOUS, Ref 0 (Reported) Entered as Reported by FLORENTIN ARREOLA on 06/03/18 114 Last Action: Reviewed on 06/19/18952 by ANGEL TOM guaiFENesin* (Mucinex 600MG Tab ER*) 600 MG TABLET.ER 600 MG PO BID, Ref 0 (Reported) Entered as Reported by FLORENTIN ARREOLA on 06/03/18 1138 Last Action: Reviewed on 06/19/18952 by ANGEL TOM Hydroxyurea (Hydrea 500MG Capsule) 500 MG CAP 500 MG PO QODAY, Ref 0 (Reported) Entered as Reported by FLORENTIN ARREOLA on 06/03/18 113 Last Action: Reviewed on 06/19/18952 by ANGEL [...] as Reported by FLORENTIN ARREOLA on 06/03/18 113 Last Action: Reviewed on 06/19/18952 by ANGEL [...] as Reported by FLORENTIN ARREOLA on 06/03/18 113 Last Action: Reviewed on 06/19/18952 by ANGEL [...] Hydrox/Mg Hydrox/ 30 ML Q4HPRN PRN 06/19 0900 AC Simethicone PO (MAALOX (ALAMAG)PLUS ORAL LIQ) Albuterol Sulfate 2 MG Q4HPRN PRN 06/19 0830 AC (VENTOLIN/PROVENTIL INH 2.5MG/3ML INH.NEB) Bisacodyl 5 MG ONCE ONE 06/20 900 AC (DULCOLAX TAB.EC) PO 06/20 901 Bisacodyl 10 MG ONCE ONE 06/20 900 AC (DULCOLAX RECT) RC 06/20 901 Diphenhydramine HCl 25 MG Q6HPRN PRN 06/19 09 AC (BENADRYL CAP) PO Enoxaparin Sodium 40 MG QDAY 06/20 09 AC (LOVENOX D.SYR) SC Hydromorphone HCl 2 MG Q3HPRN PRN 06/19 900 AC (DILAUDID D.SYR) IM Lactated Ringer's 1,000 ML CONT 06/19 900 AC (Lactated Ringers) IV Ondansetron HCl 4 MG Q6HPRN PRN 06/19 900 AC (ZOFRAN VIAL) IV Oxycodone/ 1 UDTAB Q3HPRN PRN 06/19 900 AC Acetaminophen PO (percoCET-5/325 TAB) Oxycodone/ 2 UDTAB Q3HPRN PRN 06/19 09 AC Acetaminophen PO (percoCET-5/325 TAB) Pantoprazole Sodium 40 MG QDAYAC 06/21 0700 AC (PROTONIX TAB) PO Sodium Chloride 3 ML Q8H 06/19 1400 AC (Sodium Chloride IV 0.9% FLUSH D.SYR) Sodium Chloride 3 ML PRN PRN 06/19 0900 AC (Sodium Chloride IV 0.9% FLUSH D.SYR) Zolpidem Tartrate 5 MG QHSPRN PRN 06/19 0900 AC (AMBIEN TAB) PO Review of Systems [...] therapy. Collaborating Physician Jody Daugherty CHANDNI 06/19/18 253: Physician Attestation Statement of Attestation I have personally performed a sjds-vg-kfih diagnostic evaluation for this patient independently. I have discussed the case with nurse practitioner. 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 Phonetic and/or minor grammatical errors may exist. eSign Date and Time DatJody Verified/Reviewed by 06/19/18 4301 Fuad Burr CNP Verified/Reviewed by 06/19/18 1600 [facility] 06-19[facility]2018 OPERATIVE REPORT [facility] OR DATE OF SERVICE: TIME: 1 p.m. PREOPERATIVE DIAGNOSIS: Primary endstage osteoarthritis, left knee, valgus deformity. POSTOPERATIVE DIAGNOSIS: Primary endstage osteoarthritis, left knee, valgus deformity. OPERATION: Total knee left utilizing [employer] Oxinium size 4 cruciate retaining femoral component, a size 3 Ursula tibial baseplate, a 9-mm dished articular insert, and a 35 button. SURGEON: Abebe Ibarra DO AUTO BODY MAN: Mary Jane Vigil PA-C ANESTHESIA: General with [...] were to be able to go to yazidism and go shopping without discomfort or fear [...] flexion, extension gaps equal, we reamed the [facility] PATIENT NAME: KELLIE HUDSON [address] [facility] [address] MEDICAL REC #: [id number] [place] [address] ADMIT DATE: DISCHARGE DATE: OPERATIVE REPORT ATTENDING PHY: Abebe Ibarra DO patella down to 12 mm [...] less risk of complications for the patient. Abebe Ibarra DO [id number] SSI File#: [id number] Verified/Reviewed by 06/19/18 1556 LYSTACY [facility] PATIENT NAME: KELLIE HUDSON [address] [facility] [address] MEDICAL REC #: [id number] [place] [address] ADMIT DATE: DISCHARGE DATE: OPERATIVE REPORT ATTENDING PHY: Abebe Ibarra DO [facility] 06-19-2018 OT Assessment Report [facility] [place] [place] Occupational Therapy Inpatient Evaluation Medical Diagnosis: s/p Left TKA performed by dr. Ibarra on 06/19/18 OCCUPATIONAL PROFILE AND HISTORY Therapy Diagnosis: Rank Code Description 1 R26.81 Unsteadiness on feet 2 Z74.1 Need for assistance with personal care Demographics: Age: 82Y Gender: Female Primary Language: Chinese Preferred Language: Chinese Referring Service/Team: Orthopedics Past Medical History: Heart [...] interfere with any activity at this time. [facility] PATIENT NAME: KELLIE HUDSON [address] [facility] [address] MEDICAL REC #: [id number] [place] [id number] ADMIT DATE: SERVICE DATE: 06/19/18 Occupational Therapy Assessment ATTENDING PHY: Abebe Ibarra DO Pain is alleviated by: Pain [...] seat, grab bar Equipment Owned: ww, cane, engraver block Social History: Marital Status: Children: It is [...] pt demo fair gait, decreased step length, [facility] PATIENT NAME: KELLIE HUDSON [address] [facility] [address] MEDICAL REC #: [id number] [place] [address] ADMIT DATE: SERVICE DATE: 06/19/18 Occupational Therapy Assessment ATTENDING PHY: Abebe Ibarra DO CGA for steadying Range of [...] Demonstration. Response: Verbalized understanding. Demonstrated skill. ASSESSMENT [facility] PATIENT NAME: KELLIE HUDSON [address] [facility] [address] MEDICAL REC #: [id number] [place] [address] ADMIT DATE: SERVICE DATE: 06/19/18 Occupational Therapy Assessment ATTENDING PHY: Abebe Ibarra DO Clinical Performance Deficits: Impaired ADLs, Impaired instrumental ADLs, Impaired functional mobility, Limited activity tolerance, Pain, Impaired transfers Equipment Recommended: TBD Rehabilitation Potential: Good Motivation/Commitment to Therapy: Good. Response to Evaluation: Tolerated fairly. Limited by fatigue and nausea. Would benefit from another OT session. Recommend home w/supv upon d/c. Activity/Participation Problem List and Goals: Functional Impairment: Self Care Modifier: [id number] (at least 20%, but less than 40% impaired, limited, or restricted) Goal: supv Goal Modifier: [id number]-FR (at least 20%, but less than 40% [...] contact the Acute Therapy Department at extension [phone] [facility] WILL BE TRANSFERRED TO THE (CHOICE OF ACUTE OR REHAB) OCCUPATIONAL THERAPIST Communication to Nursing: No updates at this time. Location of Patient at End of Therapy Session: In chair, call light within reach [facility] PATIENT NAME: KELLIE HUDSON [address] [facility] [address] MEDICAL REC #: [id number] [place] [address] ADMIT DATE: SERVICE DATE: 06/19/18 Occupational Therapy Assessment ATTENDING PHY: Abebe Ibarra DO Services: Total Billed: 0 minutes (Timed: 0, Untimed: 0) 0.00 Untimed: [05283] OT-EVALUATION LOW COMPLEXITY 0.00 Untimed: [] OT Evaluation ORDER 0.00 Untimed: [] OT Treatment General ORDER 0.00 Untimed: [G8987] OT-Self Care-CJ 0.00 Untimed: [G8988] DL-Opdb-Eyui Care-CJ Signed by: Ninfa Alatorre, 06/19/2018 17:04:59 [facility] PATIENT NAME: KELLIE HUDSON [address] [facility] [address] MEDICAL REC #: [id number] [place] [address] ADMIT DATE: SERVICE DATE: 06/19/18 Occupational Therapy Assessment ATTENDING PHY: Abebe Ibarra DO [facility] PTARon 06-19-2018 PT Assessment Report Normal [facility] PTAR Physical Therapy Inpatient Evaluation Medical Diagnosis: s/p Left TKA performed by dr. Ibarra on 06/19/18 Therapy Diagnosis: Rank Code Description 1 R26.81 Unsteadiness on feet 2 M62.81 Muscle weakness (generalized) Demographics: Age: 82Y Gender: Female Primary Language: Chinese Preferred Language: Chinese Referring Service/Team: Orthopedics Past Medical History: Heart [...] pain level of 6 out of 10. [facility] PATIENT NAME: KELLIE HUDSON [address] [facility] [address] MEDICAL REC #: [id number] [place] [address] ADMIT DATE: SERVICE DATE: 06/19/18 Physical Therapy Assessment Report ATTENDING PHY: Abebe Ibarra DO Patient's acceptable level of pain [...] seat, grab bar Equipment Owned: ww, cane, engraver block Social History: Marital Status: Children: It is [...] Rolling walker. Slow reciprocal gait pattern 1600 [facility] PATIENT NAME: KELLIE HUDSON [address] [facility] [address] MEDICAL REC #: [id number] [place] [address] ADMIT DATE: SERVICE DATE: 06/19/18 Physical Therapy Assessment Report ATTENDING PHY: Abebe Ibarra DO Gait Deviations: No gait deviations. [...] Functional Impairment: Mobility: Walking and Moving Around. [facility] PATIENT NAME: KELLIE HUDSON [address] [facility] [address] MEDICAL REC #: [id number] [place] [address] ADMIT DATE: SERVICE DATE: 06/19/18 Physical Therapy Assessment Report ATTENDING PHY: Abebe Ibarra DO Modifier: [id number] (at least 20%, but less than 40% impaired, limited, or restricted) Goal: Complete 80 feet supv ww Goal Modifier: [id number] (at least 1%, but less than 20% [...] contact the Acute Therapy Department at extension [phone] Communication to Nursing: Walking: CGA Location of Patient at End of Therapy Session: In chair, call light within reach Services: Total Billed: 8 minutes (Timed: 8, Untimed: 0) 8.00 Timed: [43072] THER ACTIVITIES / 15 MIN 0.00 Untimed: [32719] PT-EVALUATION LOW COMPLEXITY 0.00 Untimed: [] PT Evaluation ORDER 0.00 Untimed: [] PT Treatment- General ORDER 0.00 Untimed: [G8978] PT-Mobility: Walking and Moving Around-CJ 0.00 Untimed: [G8979] PD-Iosf-Byxrpfqw: Walking and Moving Around-CI Signed by: Laura Chau, 06/19/2018 16:47:51 [facility] PATIENT NAME: KELLIE HUDSON [address] [facility] [address] MEDICAL REC #: [id number] [place] [address] ADMIT DATE: SERVICE DATE: 06/19/18 Physical Therapy Assessment Report ATTENDING PHY: Abebe Ibarra DO [facility] PATIENT NAME: KELLIE HUDSON [address] [facility] [address] MEDICAL REC #: [id number] [place] [address] ADMIT DATE: SERVICE DATE: 06/19/18 Physical Therapy Assessment Report ATTENDING PHY: Abebe Ibarra DO Normal [facility] TSon 06-19-2018 ABO and Rh group Nom (Bld) O NEGATIVE Normal [facility] Comment on above: Order Comment: Donna s: M Is This Patient Going To Surgery? Y Surgery Date: 06/19/18 URINE CULTUREon 06-07-2018 Bacteria identified Cx Nom (U) URINE RESULT LESS THAN 10,000 COLONIES PER ML Normal [facility] Comment on above: Order Comment: Donna s: M Performed By: #### M 100.52683 #### [facility] [address] [place] [address] ABO/RH NCon 06-05-2018 ABO and Rh group Nom (Bld) O NEGATIVE [facility] Comment on above: Order Comment: Donna s: M Is This Patient Going To Surgery? Y Surgery Date: 06/19/18 BMPon 06-05-2018 Anion gap molar conc 7 mmol/L Normal 5-16 [facility] Comment on above: Order Comment: Donna s: M Performed By: #### L 500.81194, L500.90024 #### [facility] [place] [address] Calcium mass conc 9.3 mg/dL Normal 8.5-10.1 [facility] Comment on above: Order Comment: Campu s: M Performed By: #### L 500.07490, L500.98029 #### [facility] [address] [place] [address] Chloride molar conc 104 mmol/L Normal 98-107 [facility] Comment on above: Order Comment: Campu s: M Performed By: #### L 500.19582, L500.99112 #### [facility] [address] [place] [address] CO2 molar conc 27 mmol/L Normal 21-32 [facility] Comment on above: Order Comment: Campu s: M Performed By: #### L 500.30855, L500.36800 #### [facility] [address] [place] [address] Creatinine mass conc 0.663 mg/dL Normal 0.510-0 .95 0 [facility] Comment on above: Order Comment: Campu s: M Result Comment: Ruby ents receiving either N-Acetylcysteine (NAC) or Metamizole prior to venipuncture, may have falsely depressed results. Performed By: #### L 500.62772, L500.25108 #### [facility] [address] [place] [address] Glucose mass conc 77 mg/dL Normal 70-100 [facility] Comment on above: Order Comment: Campu s: M Result Comment: 70-1 00- Normal Fasting; 100-125 Impaired Fasting; greater than 126 on more than one result- Diabetes. ADA guidelines. Results may be falsely elevated after the administration of Sulfapyridine. Results may be falsely depressed after the administration of Sulfasalazine. Performed By: #### L 500.84849, L500.88860 #### [facility] [address] [place] [address] Potassium molar conc 4.7 mmol/L Normal 3.5-5.1 [facility] Comment on above: Order Comment: Campu s: M Performed By: #### L 500.96798, L500.91454 #### [facility] [address] [place] [address] Sodium molar conc 138 mmol/L Normal 136-145 [facility] Comment on above: Order Comment: Campu s: M Performed By: #### L 500.46495, L500.78322 #### [facility] [address] [place] [address] Urea nitrogen mass conc 17 mg/dL Normal 7-26 [facility] Comment on above: Order Comment: Campu s: M Performed By: #### L 500.33428, L500.38813 #### [facility] [address] [place] [address] Urea nitrogen/Creatinine mass ratio 25 mg/mg High 15-24 [facility] Comment on above: Order Comment: Campu s: M Performed By: #### L 500.23580, L500.02753 #### [facility] [address] [place] [address] CBC W/DIFFon 06-05-2018 BASO ABS 0.10 K/CU MM Normal 0-0.2 [facility] Comment on above: Order Comment: Campu s: M Performed By: #### L 200.97111 #### [facility] [address] [place] [address] Basophils/100 WBC (Bld) 1.1 % Normal 0-2 [facility] Comment on above: Order Comment: Campu s: M Performed By: #### L 200.91988 #### [facility] [address] [place] [address] EOS ABS 0.10 K/CU MM Normal 0-0.5 [facility] Comment on above: Order Comment: Campu s: M Performed By: #### L 200.64376 #### [facility] [address] [place] [address] Eosinophils/100 WBC (Bld) 3.0 % Normal 0-5 [facility] Comment on above: Order Comment: Campu s: M Performed By: #### L 200.80157 #### [facility] [address] [place] [address] Erythrocyte distribution width Ratio (RBC) 14.5 % Normal 11-14.5 [facility] Comment on above: Order Comment: Campu s: M Performed By: #### L 200.60929 #### [facility] [address] [place] [address] Hematocrit Volume Fraction (Bld) 40.8 % Normal 35.0-47.0 [facility] Comment on above: Order Comment: Campu s: M Performed By: #### L 200.91586 #### [facility] [address] [place] [address] Hemoglobin mass conc (Bld) 13.1 g/dL Normal 11.5-15.5 [facility] Comment on above: Order Comment: Campu s: M Performed By: #### L 200.05928 #### [facility] [address] [place] [address] IMMATR GRAN ABS 0.00 K/CU MM Normal Less than 2 [facility] Comment on above: Order Comment: Campu s: M Performed By: #### L 200.50668 #### [facility] [address] [place] [address] IMMATURE GRAN % 0.2 % Normal Less than 2 [facility] Comment on above: Order Comment: Campu s: M Performed By: #### L 200.65609 #### [facility] [address] [place] [address] Lymphocytes #/vol (Bld) 1.10 K/CU MM Normal 0.9-4.4 [facility] Comment on above: Order Comment: Campu s: M Performed By: #### L 200.83653 #### [facility] [address] [place] [address] Lymphocytes/100 WBC (Bld) 23.2 % Normal 20-40 [facility] Comment on above: Order Comment: Campu s: M Performed By: #### L 200.80166 #### [facility] [address] [place] [address] MCHC mass conc (RBC) 32.1 g/dL Normal 32.0-36.0 [facility] Comment on above: Order Comment: Campu s: M Performed By: #### L 200.64453 #### [facility] [address] [place] [address] MCV Entitic volume (RBC) 98.3 fL Normal 80.0-99.0 [facility] Comment on above: Order Comment: Campu s: M Performed By: #### L 200.14805 #### [facility] [address] [place] [address] MONO ABS 0.60 K/CU MM Normal 0.1-1.1 [facility] Comment on above: Order Comment: Campu s: M Performed By: #### L 200.25312 #### [facility] [address] [place] [address] Monocytes/100 WBC (Bld) 12.4 % High 2-10 [facility] Comment on above: Order Comment: Campu s: M Performed By: #### L 200.11866 #### [facility] [address] [place] [address] NEUTROPHIL ABS 2.90 K/CU MM Normal 2.0-8.3 [facility] Comment on above: Order Comment: Campu s: M Performed By: #### L 200.21499 #### [facility] [address] [place] [address] Neutrophils/100 WBC (Bld) 60.1 % Normal 45-75 [facility] Comment on above: Order Comment: Campu s: M Performed By: #### L 200.29332 #### [facility] [address] [place] [address] Nucleated RBC/100 WBC Ratio (Bld) 0.0 % Normal Less than 1 [facility] Comment on above: Order Comment: Campu s: M Performed By: #### L 200.46519 #### [facility] [address] [place] [address] Platelet mean volume Entitic volume (Bld) 9.5 fL Normal 9.4-12.4 [facility] Comment on above: Order Comment: Campu s: M Performed By: #### L 200.24873 #### [facility] [address] [place] [address] Platelets #/vol (Bld) 401 K/CU MM Normal 150-[address] [facility] Comment on above: Order Comment: Campu s: M Performed By: #### L 200.95397 #### [facility] [address] [place] [address] RBC #/vol (Bld) 4.15 M/CU MM Normal 3.90-5.30 [facility] Comment on above: Order Comment: Campu s: M Performed By: #### L 200.63964 #### [facility] [address] [place] [address] WBC #/vol (Bld) 4.7 K/CU MM Normal 4.5-11.0 [facility] Comment on above: Order Comment: Campu s: M Performed By: #### L 200.37910 #### [facility] [address] [place] [address] GFR ESTon 06-05-2018 IF AMER Greater than 60 Normal [facility] Comment on above: Order Comment: Campu s: M Performed By: #### L 500.70499, L500.52276 #### [facility] [address] [place] [address] IF non-AFR AMER Greater than 60 Normal [facility] Comment on above: Order Comment: Oswaldou s: M Performed By: #### L 500.53916, L500.18628 #### [facility] [address] [place] [address] MRSA PCRon 06-05-2018 MRSA PCR Negative Normal NEGATIVE [facility] Comment on above: Order Comment: Donna s: M Result Comment: PLEA SE NOTE: TESTING DONE BY PCR TECHNOLOGY. The SA Nasal complete MRSA assay on the [employer] GeneXpert has not been validated for use on patients under 21 years of age. All patients under 21 years of age, run on the GeneXpert will be confirmed by a Blood [place] plate, followed by an MAURICIO, to confirm MRSA. Performed By: #### L 770.26366 #### [facility] [address] [place] [address] SA PCR Negative Normal NEGATIVE [facility] Comment on above: Order Comment: Donna s: M Result Comment: PLEA SE NOTE: TESTING DONE BY PCR TECHNOLOGY. Performed By: #### L 770.42974 #### [facility] [address] [place] [address] PATIENT RETYPEon 06-05-2018 RETYPE INTERP Negative Normal [facility] Comment on above: Order Comment: Donna payne: M Is This Patient Going To Surgery? Y Surgery Date: 06/19/18 PTon 06-05-2018 INR Coag RelTime (PPP) 0.97 {INR} Normal 0.9-1.1 [facility] Comment on above: Order Comment: Donna s: M Result Comment: Crow mmended PT INR therapeutic range for intermediate teacher and prophylactic therapy is 2.0 - 3.0. For heart valve and shunt patients the range is 2.5 - 3.5. Performed By: #### L 300.00340, L300.69724 #### [facility] [place] [id number] Prothrombin time (PT) Coag time (PPP) 10.3 s Normal 9.5-12.0 [facility] Comment on above: Order Comment: Donna payne: Tana Performed By: #### L 300.64722, L300.50964 #### [facility] [address] [place], [place] [id number] PTTon 06-05-2018 aPTT Coag time (Bld) 26.2 s Normal 22.0-31.5 [facility] Comment on above: Order Comment: Donna payne: Tana Result Comment: Ther apeutic Heparin Reference Range: High Dose: 46-75 seconds [...] monitored using the PTT. Performed By: #### L 300.25956, L300.17320 #### [facility] [address] [place], [place] [id number] Comp Metabolic Panelon 12-04 Alanine aminotransferase (ALT) 15 U/L Normal 7-38 [place] Comment on above: Performed By: #### C MP, TSH, FT4 ####[facility] [id number] [place], [place] [phone] Albumin 3.9 g/dL Normal 3.9-4.9 [facility] Comment on above: Performed By: #### C MP, TSH, FT4 ####[facility] [id number] [place], [place] [phone] Alkaline phosphatase (ALP) 76 U/L Normal 32-117 [facility] Comment on above: Performed By: #### C MP, TSH, FT4 ####[facility] [phone] Anion gap 13 mmol/L Normal 9-18 [facility] Comment on above: Performed By: #### C MP, TSH, FT4 ####[facility] [phone] Aspartate aminotransferase (AST) 22 U/L Normal 13-35 [facility] Comment on above: Performed By: #### C MP, TSH, FT4 ####[facility] [id number] [place], [place] [phone] Bilirubin Ql (U) 0.3 mg/dL Normal 0.2-1.3 [facility] Comment on above: Performed By: #### C MP, TSH, FT4 ####[facility] [id number] [place], [place] [phone] Calcium 9.8 mg/dL Normal 8.5-10.2 [facility] Comment on above: Performed By: #### C MP, TSH, FT4 ####[phone] Chloride 99 mmol/L Normal 97-105 [facility] Comment on above: Performed By: #### C MP, TSH, FT4 ####[facility] [phone] CO2 23 mmol/L Normal 22-30 [facility] Comment on above: Performed By: #### C MP, TSH, FT4 ####[facility] [phone] Creatinine 0.69 mg/dL Normal 0.58-0.96 [facility] Comment on above: Performed By: #### C MP, TSH, FT4 ####[facility] [place] [phone] eGFR (non-black) mL/min/{1.73_m2} Normal [facility] Comment on above: Performed By: #### C MP, TSH, FT4 ####[place] [phone] Glucose mass conc 76 mg/dL Normal 74-99 [facility] Comment on above: Performed By: #### C MP, TSH, FT4 ####[phone] Potassium molar conc 4.4 mmol/L Normal 3.7-5.1 [facility] Comment on above: Performed By: #### C MP, TSH, FT4 ####[place] [phone] Protein 6.5 g/dL Normal 6.3-8.0 [facility] Comment on above: Performed By: #### C MP, TSH, FT4 ####[phone] Sodium 135 mmol/L Low 136-144 [facility] Comment on above: Performed By: #### C MP, TSH, FT4 ####[place] [phone] Urea nitrogen 16 mg/dL Normal 7-21 [facility] Comment on above: Performed By: #### C MP, TSH, FT4 ####[place] [phone] Free T4on 12-04-2017 Thyroxine (T4) free 1.4 ng/dL Normal 0.9-1.7 [facility] Comment on above: Performed By: #### V ITD, CMP, TSH, FREET3, FT4 ####[facility] [place] [phone] TSHon 12-04-2017 Thyroid stimulating hormone (TSH) 3.040 uU/mL Normal 0.400-5.50 0 [facility] Comment on above: Performed By: #### V ITD, CMP, TSH, FREET3, FT4 ####[place] [phone] Basic Metabolic Panlon 09-18 Anion gap 10 mmol/L Normal 9-18 [facility] Comment on above: Performed By: #### B MP ####[phone] Calcium 10.1 mg/dL Normal 8.5-10.2 [facility] Comment on above: Performed By: #### B MP ####[phone] Chloride 101 mmol/L Normal 97-105 [facility] Comment on above: Performed By: #### B MP ####[phone] CO2 27 mmol/L Normal 22-30 [facility] Comment on above: Performed By: #### B MP ####[place] [phone] Creatinine 0.71 mg/dL Normal 0.58-0.96 [facility] Comment on above: Performed By: #### B MP ####[place] [phone] eGFR (non-black) mL/min/{1.73_m2} Normal [facility] Comment on above: Performed By: #### B MP ####[place] [phone] Glucose mass conc 81 mg/dL Normal 74-99 [facility] Comment on above: Performed By: #### B MP ####[place] [phone] Potassium molar conc 4.4 mmol/L Normal 3.7-5.1 [facility] Comment on above: Performed By: #### B MP ####[phone] Sodium 138 mmol/L Normal 136-144 [facility] Comment on above: Performed By: #### B MP ####[place] [phone] Urea nitrogen 17 mg/dL Normal 7-21 [facility] Comment on above: Performed By: #### B MP ####[place] [phone] Comp Metabolic Panelon 08-07 Alanine aminotransferase (ALT) 25 U/L Normal 7-38 [facility] Comment on above: Performed By: #### V ITD, CMP, MG1, TSH ####[place] [phone] Albumin 4.0 g/dL Normal 3.9-4.9 [facility] Comment on above: Performed By: #### V ITD, CMP, MG1, TSH ####[place] [phone] Alkaline phosphatase (ALP) 79 U/L Normal 32-117 [facility] Comment on above: Performed By: #### V ITD, CMP, MG1, TSH ####[place] [phone] Anion gap 15 mmol/L Normal 9-18 [facility] Comment on above: Performed By: #### V ITD, CMP, MG1, TSH ####[place] [phone] Aspartate aminotransferase (AST) 26 U/L Normal 13-35 [facility] Comment on above: Performed By: #### V ITD, CMP, MG1, TSH ####[place] [phone] Bilirubin Ql (U) 0.3 mg/dL Normal 0.2-1.3 [facility] Comment on above: Performed By: #### V ITD, CMP, MG1, TSH ####[phone] Calcium 9.5 mg/dL Normal 8.5-10.2 [facility] Comment on above: Performed By: #### V ITD, CMP, MG1, TSH ####[place] [phone] Chloride 98 mmol/L Normal 97-105 [facility] Comment on above: Performed By: #### V ITD, CMP, MG1, TSH ####[phone] CO2 25 mmol/L Normal 22-30 [facility] Comment on above: Performed By: #### V ITD, CMP, MG1, TSH ####[phone] Creatinine 0.75 mg/dL Normal 0.58-0.96 [facility] Comment on above: Performed By: #### V ITD, CMP, MG1, TSH ####[place] [phone] eGFR (non-black) mL/min/{1.73_m2} Normal [facility] Comment on above: Performed By: #### V ITD, CMP, MG1, TSH ####[address] [phone] Glucose mass conc 70 mg/dL Low 74-99 [facility] Comment on above: Performed By: #### V ITD, CMP, MG1, TSH ####[place] [phone] Potassium molar conc 4.3 mmol/L Normal 3.7-5.1 [facility] Comment on above: Performed By: #### V ITD, CMP, MG1, TSH ####[place] [phone] Protein 6.8 g/dL Normal 6.3-8.0 [facility] Comment on above: Performed By: #### V ITD, CMP, MG1, TSH ####[place] [phone] Sodium 138 mmol/L Normal 136-144 [facility] Comment on above: Performed By: #### V ITD, CMP, MG1, TSH ####[place] [phone] Urea nitrogen 18 mg/dL Normal 7-21 [facility] Comment on above: Performed By: #### V ITD, CMP, MG1, TSH ####[place] [phone] Magnesiumon 08-07-2017 Magnesium 2.3 mg/dL Normal 1.7-2.3 [facility] Comment on above: Performed By: #### V ITD, CMP, MG1, TSH ####[address] [phone] TSHon 08-07-2017 Thyroid stimulating hormone (TSH) 3.980 uU/mL Normal 0.400-5.50 0 [facility] Comment on above: Performed By: #### V ITD, CMP, MG1, TSH ####[place] [phone] Vitamin D 25 Hydroxyon 08-07 Vitamin D 25 Hydroxy 83.2 ng/mL High 31.0-80.0 [facility] Comment on above: Performed By: #### V ITD, CMP, MG1, TSH ####[place] [phone] Comp Metabolic Panelon 12-28 Alanine aminotransferase (ALT) 17 U/L Normal 7-38 [facility] Comment on above: Performed By: #### V ITD, CMP, TSH, FREET3, FT4 ####[place] [phone] Albumin 3.9 g/dL Normal 3.9-4.9 [facility] Comment on above: Performed By: #### V ITD, CMP, TSH, FREET3, FT4 ####[place] [phone] Alkaline phosphatase (ALP) 83 U/L Normal 32-117 [facility] Comment on above: Performed By: #### V ITD, CMP, TSH, FREET3, FT4 ####[place] [phone] Anion gap 14 mmol/L Normal 9-18 [facility] Comment on above: Performed By: #### V ITD, CMP, TSH, FREET3, FT4 ####[place] [phone] Aspartate aminotransferase (AST) 25 U/L Normal 13-35 [facility] Comment on above: Performed By: #### V ITD, CMP, TSH, FREET3, FT4 ####[place] [phone] Bilirubin Ql (U) 0.3 mg/dL Normal 0.2-1.3 [facility] Comment on above: Performed By: #### V ITD, CMP, TSH, FREET3, FT4 ####[place] [phone] Calcium 8.9 mg/dL Normal 8.5-10.2 [facility] Comment on above: Performed By: #### V ITD, CMP, TSH, FREET3, FT4 ####[place] [phone] Chloride 103 mmol/L Normal 97-105 [facility] Comment on above: Performed By: #### V ITD, CMP, TSH, FREET3, FT4 ####[place] [phone] CO2 23 mmol/L Normal 22-30 [facility] Comment on above: Performed By: #### V ITD, CMP, TSH, FREET3, FT4 ####[place] [phone] Creatinine 0.67 mg/dL Normal 0.58-0.96 [facility] Comment on above: Performed By: #### V ITD, CMP, TSH, FREET3, FT4 ####[place] [phone] eGFR (non-black) mL/min/{1.73_m2} Normal [facility] Comment on above: Performed By: #### V ITD, CMP, TSH, FREET3, FT4 ####[place] [phone] Glucose mass conc 63 mg/dL Low 74-99 [facility] Comment on above: Performed By: #### V ITD, CMP, TSH, FREET3, FT4 ####[address] [phone] Potassium molar conc 4.1 mmol/L Normal 3.7-5.1 [facility] Comment on above: Performed By: #### V ITD, CMP, TSH, FREET3, FT4 ####[address] [phone] Protein 6.6 g/dL Normal 6.3-8.0 [facility] Comment on above: Performed By: #### V ITD, CMP, TSH, FREET3, FT4 ####[address] [phone] Sodium 140 mmol/L Normal 136-144 [facility] Comment on above: Performed By: #### V ITD, CMP, TSH, FREET3, FT4 ####[address] [phone] Urea nitrogen 14 mg/dL Normal 7-21 [facility] Comment on above: Performed By: #### V ITD, CMP, TSH, FREET3, FT4 ####[address] [phone] Free T3on 12-28-2016 Triiodothyronine (T3) free 2.6 pg/mL Normal 2.3-4.1 [facility] Comment on above: Performed By: #### V ITD, CMP, TSH, FREET3, FT4 ####[address] [phone] Free T4on 12-28-2016 Thyroxine (T4) free 1.3 ng/dL Normal 0.9-1.7 [facility] Comment on above: Performed By: #### V ITD, CMP, TSH, FREET3, FT4 ####[address] [phone] TSHon 12-28-2016 Thyroid stimulating hormone (TSH) 3.170 uU/mL Normal 0.400-5.50 0 [facility] Comment on above: Performed By: #### V ITD, CMP, TSH, FREET3, FT4 ####[facility] [id number] [place], [place] [phone] Vitamin D 25 Hydroxyon 12-28 Vitamin D 25 Hydroxy 63.7 ng/mL Normal 31.0-80.0 [facility] Comment on above: Performed By: #### V ITD, CMP, TSH, FREET3, FT4 ####[facility] [id number] [place], [place] [phone] Vital Signs Date Time Vital Sign Value Performing Clinician Faci lity 11-06-2024 10:53-0400 Body height 149.9 cm Kellie Servin MD Work Phone: [facility] 11-06-2024 10:53-0400 Body mass index (BMI) [Ratio] 24.44 kg/m2 Kellie Servin MD Work Phone: [facility] 11-06-2024 10:53-0400 Body weight 54.88 kg Kellie Servin MD Work Phone: [facility] 11-06-2024 10:53-0400 Diastolic blood pressure 68 mm[Hg] Kellie Servin MD Work Phone: [facility] 11-06-2024 10:53-0400 Heart rate 70 /min Kellie Servin MD Work Phone: [facility] 11-06-2024 10:53-0400 SaO2% (BldA) [Mass fraction] 96 % Kellie Servin MD Work Phone: [facility] 11-06-2024 10:53-0400 Systolic blood pressure 120 mm[Hg] Kellie Servin MD Work Phone: [facility] 10-23-2024 12:54-0400 Body height 149.9 cm Kellie Servin MD Work Phone: [facility] 10-23-2024 12:54-0400 Body mass index (BMI) [Ratio] 24.6 kg/m2 Kellie Servin MD Work Phone: [facility] 10-23-2024 12:54-0400 Body weight 55.25 kg Kellie Servin MD Work Phone: [facility] 10-23-2024 12:54-0400 Diastolic blood pressure 60 mm[Hg] Kellie Servin MD Work Phone: [facility] 10-23-2024 12:54-0400 Heart rate 84 /min Kellie Servin MD Work Phone: [facility] 10-23-2024 12:54-0400 SaO2% (BldA) [Mass fraction] 96 % Kellie Servin MD Work Phone: [facility] 10-23-2024 12:54-0400 Systolic blood pressure 118 mm[Hg] Kellie Servin MD Work Phone: [facility] 09-05-2024 16:13-0500 Body temperature 97.9 [degF] Dr. Cody Vanegas DO Work Phone: [facility] 09-05-2024 16:13-0500 Diastolic blood pressure 78 mm[Hg] Dr. Cody Vanegas DO Work Phone: [facility] 09-05-2024 16:13-0500 Heart rate 71 /min Dr. Cody Vanegas DO Work Phone: [facility] 09-05-2024 16:13-0500 Respiratory rate 16 /min Dr. Cody Vanegas DO Work Phone: [facility] 09-05-2024 16:13-0500 SaO2% (BldA) [Mass fraction] 98 % Dr. Cody Vanegas DO Work Phone: [facility] 09-05-2024 16:13-0500 Systolic blood pressure 119 mm[Hg] Dr. Cody Vanegas DO Work Phone: [facility] 09-05-2024 07:15-0500 Body height 152.[address] Cody Vanegas DO Work Phone: [facility] 09-05-2024 07:15-0500 Body mass index (BMI) [Ratio] 23.6 kg/m2 Dr. Cody Vanegas DO Work Phone: [facility] 09-05-2024 07:15-0500 Body weight 54.[address] Cody Vanegas DO Work Phone: [facility] 08-11-2024 08:47-0500 Body height 149.9 cm DEBBI Roblero MD Work Phone: [facility] 08-11-2024 08:47-0500 Body mass index (BMI) [Ratio] 25.04 kg/m2 DEBBI Roblero MD Work Phone: [facility] 08-11-2024 08:47-0500 Body weight 56.25 kg DEBBI Roblero MD Work Phone: [facility] 08-11-2024 08:47-0500 Diastolic blood pressure 74 mm[Hg] DEBBI Roblero MD Work Phone: [facility] 08-11-2024 08:47-0500 Heart rate 90 /min DEBBI Roblero MD Work Phone: [facility] 08-11-2024 08:47-0500 Systolic blood pressure 122 mm[Hg] DEBBI Roblero MD Work Phone: [facility] 05-19-2024 08:43-0500 Body height 149.9 cm DEBBI Roblero MD Work Phone: [facility] 05-19-2024 08:43-0500 Body mass index (BMI) [Ratio] 24.94 kg/m2 DEBBI Roblero MD Work Phone: [facility] 05-19-2024 08:43-0500 Body weight 56 kg DEBBI Roblero MD Work Phone: [facility] 05-19-2024 08:43-0500 Diastolic blood pressure 69 mm[Hg] DEBBI Roblero MD Work Phone: [facility] 05-19-2024 08:43-0500 Heart rate 76 /min DEBBI Roblero MD Work Phone: [facility] 05-19-2024 08:43-0500 Systolic blood pressure 123 mm[Hg] DEBBI Roblero MD Work Phone: [facility] 09-14-2023 14:20-0400 Body height 152.[address] Cody Vanegas Work Phone: [facility] 09-14-2023 14:20-0400 Body mass index (BMI) [Ratio] 24 kg/m2 Dr. Cody Vanegas Work Phone: [facility] 09-14-2023 14:20-0400 Body weight 55.[address] Cody Vanegas Work Phone: [facility] 09-14-2023 14:20-0400 Diastolic blood pressure 70 mm[Hg] Dr. Cody Vanegas Work Phone: [facility] 09-14-2023 14:20-0400 Heart rate 77 /min Dr. Cody Vanegas Work Phone: [facility] 09-14-2023 14:20-0400 Respiratory rate 17 /min Dr. Cody Vanegas Work Phone: [facility] 09-14-2023 14:20-0400 SaO2% (BldA) [Mass fraction] 98 % Dr. Cody Vanegas Work Phone: [facility] 09-14-2023 14:20-0400 Systolic blood pressure 133 mm[Hg] Dr. Cody Vanegas Work Phone: [facility] 03-27-2023 11:18-0400 Body temperature 98.4 [degF] Dr. Cody Vanegas Work Phone: [facility] 03-27-2023 11:18-0400 Diastolic blood pressure 62 mm[Hg] Dr. Cody Vanegas Work Phone: [facility] 03-27-2023 11:18-0400 Heart rate 85 /min Dr. Cody Vanegas Work Phone: [facility] 03-27-2023 11:18-0400 Respiratory rate 16 /min Dr. Cody Vanegas Work Phone: [facility] 03-27-2023 11:18-0400 SaO2% (BldA) [Mass fraction] 97 % Dr. Cody Vanegas Work Phone: [facility] 03-27-2023 11:18-0400 Systolic blood pressure 122 mm[Hg] Dr. Cody Vanegas Work Phone: [facility] 03-27-2023 10:47-0400 Body height 152.[address] Cody Vanegas Work Phone: [facility] 03-27-2023 10:47-0400 Body mass index (BMI) [Ratio] 21.9 kg/m2 Dr. Cody Vanegas Work Phone: [facility] 03-27-2023 10:47-0400 Body weight 51.[address] Cody Vanegas Work Phone: [facility] 01-13-2023 09:04-0400 Body temperature 98 [degF] Dr. Cody Vanegas Work Phone: [facility] 01-13-2023 09:04-0400 Diastolic blood pressure 55 mm[Hg] Dr. Cody Vanegas Work Phone: [facility] 01-13-2023 09:04-0400 Heart rate 75 /min Dr. Cody Vanegas Work Phone: [facility] 01-13-2023 09:04-0400 Respiratory rate 16 /min Dr. Cody Vanegas Work Phone: [facility] 01-13-2023 09:04-0400 SaO2% (BldA) [Mass fraction] 97 % Dr. Cody Vanegas Work Phone: [facility] 01-13-2023 09:04-0400 Systolic blood pressure 121 mm[Hg] Dr. Cody Vanegas Work Phone: [facility] 01-11-2023 08:02-0400 Body height 152.[address] Cody Vanegas Work Phone: [facility] 01-11-2023 08:02-0400 Body mass index (BMI) [Ratio] 23.4 kg/m2 Dr. Cody Vanegas Work Phone: [facility] 01-11-2023 08:02-0400 Body weight 54.[address] Cody Vanegas Work Phone: [facility] 01-11-2023 08:02-0400 Inhaled oxygen flow rate 1 L/min Dr. Cody Vanegas Work Phone: [facility] 01-08-2023 01:55-0400 Body temperature 97.5 [degF] Dr. Cody Vanegas Work Phone: [facility] 01-08-2023 01:55-0400 Diastolic blood pressure 73 mm[Hg] Dr. Coyd Vanegas Work Phone: [facility] 01-08-2023 01:55-0400 Heart rate 120 /min Dr. Cody Vanegas Work Phone: [facility] 01-08-2023 01:55-0400 Respiratory rate 16 /min Dr. Cody Vanegas Work Phone: [facility] 01-08-2023 01:55-0400 SaO2% (BldA) [Mass fraction] 98 % Dr. Cody Vanegas Work Phone: [facility] 01-08-2023 01:55-0400 Systolic blood pressure 109 mm[Hg] Dr. Cody Vanegas Work Phone: [facility] 01-08-2023 01:10-0400 Inhaled oxygen flow rate 2 L/min Dr. Cody Vanegas Work Phone: [facility] 01-07-2023 22:29-0400 Body height 152.[address] Cody Vanegas Work Phone: [facility] 01-07-2023 22:29-0400 Body mass index (BMI) [Ratio] 24.7 kg/m2 Dr. Cody Vanegas Work Phone: [facility] 01-07-2023 22:29-0400 Body weight 57.[address] Cody Vanegas Work Phone: [facility] 12-09-2022 18:36-0400 Body temperature 98.2 [degF] Dr. Cody Vanegas Work Phone: [facility] 12-09-2022 18:36-0400 Diastolic blood pressure 50 mm[Hg] Dr. Cody Vanegas Work Phone: [facility] 12-09-2022 18:36-0400 Heart rate 81 /min Dr. Cody Vanegas Work Phone: [facility] 12-09-2022 18:36-0400 Respiratory rate 18 /min Dr. Cody Vanegas Work Phone: [facility] 12-09-2022 18:36-0400 SaO2% (BldA) [Mass fraction] 95 % Dr. Cody Vanegas Work Phone: [facility] 12-09-2022 18:36-0400 Systolic blood pressure 136 mm[Hg] Dr. Cody Vanegas Work Phone: [facility] 12-09-2022 02:12-0400 Body mass index (BMI) [Ratio] 24 kg/m2 Dr. Cody Vanegas Work Phone: [facility] 12-09-2022 02:12-0400 Body weight 55.[address] Cody Vanegas Work Phone: [facility] 12-02-2022 18:19-0400 Diastolic blood pressure 57 mm[Hg] Dr. Cody Vanegas Work Phone: [facility] 12-02-2022 18:19-0400 Heart rate 67 /min Dr. Cody Vanegas Work Phone: [facility] 12-02-2022 18:19-0400 Respiratory rate 16 /min Dr. Cody Vanegas Work Phone: [facility] 12-02-2022 18:19-0400 SaO2% (BldA) [Mass fraction] 98 % Dr. Cody Vanegas Work Phone: [facility] 12-02-2022 18:19-0400 Systolic blood pressure 133 mm[Hg] Dr. Cody Vanegas Work Phone: [facility] 12-02-2022 16:19-0400 Body height 154.[address] Cody Vanegas Work Phone: [facility] 12-02-2022 16:19-0400 Body mass index (BMI) [Ratio] 23.8 kg/m2 Dr. Cody Vanegas Work Phone: [facility] 12-02-2022 16:19-0400 Body temperature 97.8 [degF] Dr. Cody Vanegas Work Phone: [facility] 12-02-2022 16:19-0400 Body weight 57.[address] Cody Vanegas Work Phone: [facility] 09-05-2022 11:44-0500 Body height 153.7 cm Javier Ku MD Work Phone: [facility] 09-05-2022 11:44-0500 Body temperature 98.1 [degF] Javier Ku MD Work Phone: [facility] 09-05-2022 11:44-0500 Body weight 58.06 kg Javier Ku MD Work Phone: [facility] 09-05-2022 11:44-0500 Diastolic blood pressure 64 mm[Hg] Javier Ku MD Work Phone: [facility] 09-05-2022 11:44-0500 Heart rate 76 /min Javier Ku MD Work Phone: [facility] 09-05-2022 11:44-0500 Systolic blood pressure 123 mm[Hg] Javier Ku MD Work Phone: [facility] Encounters Encounter Date Encounter Type Care Provider Facility Start: 11-06-2024 End: 11-06-2024 Office outpatient visit 25 minutes Kellie Servin MD Work Phone: [facility] Comment on above: 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) Start: 11-06-2024 End: 11-06-2024 ambulatory KELLIE SERVIN Facility:[facility] Start: 10-23-2024 End: 10-23-2024 Office outpatient new 60 minutes Kellie Servin MD Work Phone: [facility] DE[facility] Comment on above: 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 Cody Vanegas DO Work Phone: -Emergency Department Work Phone: Start: 08-20-2024 End: 08-20-[address] Abebe Keene MD -Ultrasound, [facility] Work Phone: Start: 08-20-2024 End: 08-20-2024 ambulatory Abebe Keene Facility:[facility] Start: 08-11-2024 End: 08-11-2024 Patient encounter procedure Sd Roblero MD Work Phone: [facility] Comment on above: Pancreas cyst (Prima ry Dx) Start: 08-11-2024 End: 08-11-2024 ambulatory Sd ROBLERO Facility:[facility] Start: 08-07-2024 End: 08-07-[address] Cody JAIM[facility]aboratoryKilo [facility] Start: 08-07-2024 End: 08-07-2024 ambulatory [facility] Facility:[facility] Start: 07-25-2024 Preprocedural examination done DEBBI Roblero MD Work Phone: [place] Start: 07-25-2024 Encounter for other preprocedural examination Sd ROBLERO [facility] Start: 07-25-2024 ambulatory Sd ROBLERO Facilit y:[facility] Start: 06-26-2024 End: 06-26-[address] Cody JAIMELaboratoryKilo [facility] Start: 06-26-2024 End: 06-26-2024 ambulatory [facility] Facility:[facility] Start: 06-03-2024 End: 06-03-2024 Orders Only Sd Roblero MD Work Phone: [facility] DEPARTMENT Comment on above: Pancreatic cyst (Kaila bobby Dx) Start: 05-27-2024 ambulatory [facility] Facility: [facility] Start: 05-27-2024 Non-patient / Non-visit Dr. Gabriel Estrada MD -[facility] Start: 05-27-2024 End: 05-27-[address] Cody Vanegas DO -Pulmonary Services/Neurology Work Phone: Start: 05-27-2024 End: 05-27-2024 ambulatory [facility] Facility:[facility] Start: 05-23-2024 End: 05-23-2024 Telephone encounter Sd Roblero MD Work Phone: [facility] DE[facility] Start: 05-19-2024 End: 05-19-2024 Patient encounter procedure Sd Roblero MD Work Phone: [facility] Comment on above: Pancreas cyst (Prima ry Dx) Start: 05-19-2024 End: 05-19-2024 ambulatory Sd ROBLERO Facility:[facility] Start: 05-08-2024 End: 05-08-[address] Cody Vanegas DO -Outpatient Bone Densitometry Work Phone: Start: 05-08-2024 End: 05-08-2024 ambulatory Cody Vanegas Facility:[facility] Start: 05-01-2024 End: 05-01-2024 ambulatory Cody Vanegas Facility:[facility] Start: 04-09-2024 End: 04-09-2024 ambulatory Cody Vanegas Facility:[facility] Start: 04-01-2024 End: 04-01-2024 ambulatory Cody Vanegas Facility:[facility] Start: 03-26-2024 End: 03-26-2024 ambulatory Cody Vanegas Facility:[facility] Start: 02-28-2024 End: 02-28-2024 ambulatory Cody Vanegas Facility:[facility] Start: 01-24-2024 End: 01-24-2024 ambulatory Cody Vanegas Facility:[facility] Start: 12-26-2023 End: 12-26-2023 ambulatory Cody Vanegas Facility:[facility] Start: 11-30-2023 End: 11-30-2023 ambulatory Cody Vanegas Facility:[facility] Start: 10-26-2023 End: 10-26-[address] Cody Vanegas Work Phone: [facility] Work Phone: Start: 10-26-2023 End: 10-26-[address] Cody Vanegas Work Phone: [facility]-[place] [facility] Start: 10-26-2023 End: 10-26-2023 ambulatory Cody Vanegas Facility:[facility] Start: 09-26-2023 End: 09-26-[address] Cody Vanegas Work Phone: [facility] Work Phone: Start: 09-26-2023 End: 09-26-[address] Cody Vanegas Work Phone: [facility]-Laboratory, [place] Work Phone: Start: 09-17-2023 Telephone encounter Fran portillo MD Work Phone: Hematology/Oncology Comment on above: Appointment Start: 09-14-2023 End: 09-14-[address] Cody Vanegas Work Phone: [facility] Work Phone: Start: 09-14-2023 End: 09-14-[address] Cody Vanegas Work Phone: [facility]-Laboratory, Specimen Work Phone: Start: 09-14-2023 End: 09-14-[address] Cody Vanegas Work Phone: [facility] Work Phone: Start: 08-29-2023 End: 08-29-[address] Cody Vanegas Work Phone: [facility] Work Phone: Start: 08-29-2023 End: 08-29-[address] Cody Vanegas Work Phone: [facility] [facility], [facility] Work Phone: Start: 08-24-2023 End: 08-24-[address] Cody Vanegas Work Phone: [facility] Work Phone: Start: 08-24-2023 End: 08-24-[address] Cody Vanegas Work Phone: [facility] [place] [facility] Start: 07-27-2023 End: 07-27-[address] Cody Vanegas Work Phone: [facility] Work Phone: Start: 07-27-2023 End: 07-27-[address] Cody Vanegas Work Phone: [facility] [place] [facility] Start: 07-20-2023 End: 07-20-[address] Cody Vanegas Work Phone: [facility] Work Phone: Start: 06-08-2023 End: 06-08-2023 ambulatory [facility] Work Phone: Start: 06-08-2023 End: 06-08-2023 Patient encounter [facility] Start: 05-10-2023 End: 05-10-2023 Patient encounter procedure [facility] Start: 03-27-2023 End: 03-27-[address] Cody Vanegas Work Phone: [facility] Work Phone: Start: 03-27-2023 End: 03-27-[address] Cody Vanegas Work Phone: [facility]-Medical Out Work Phone: Start: 02-14-2023 End: 02-14-[address] Cody Vanegas Work Phone: [facility] Work Phone: Start: 02-14-2023 End: 02-14-[address] Cody Vanegas Work Phone: [facility] Start: 02-05-[address] Cody hui Work Phone: [facility] Start: 01-29-[address] Cody hui Work Phone: [facility] Start: 01-22-[address] Cody hui Work Phone: [facility] Start: 01-16-2023 End: 01-16-[address] Cody Vanegas Work Phone: [facility] Work Phone: Start: 01-15-2023 End: 01-15-[address] Cody Vanegas Work Phone: [facility] Work Phone: Start: 01-15-[address] Cody hui Work Phone: [facility] Start: 01-13-2023 Non-patient / Non-visit Dr. Alice Vanegas Work Phone: [facility] Work Phone: Start: 01-12-2023 Non-patient / Non-visit Dr. Alice Vanegas Work Phone: [facility] Start: 01-12-2023 Non-patient / Non-visit Dr. Alice Vanegas Work Phone: [facility] Work Phone: Start: 01-11-2023 Non-patient / Non-visit Dr. Alice Vanegas Work Phone: [facility] Start: 01-11-2023 Non-patient / Non-visit Dr. Alice Vanegas Work Phone: [facility] Work Phone: Start: 01-10-2023 Non-patient / Non-visit Dr. Alice Vanegas Work Phone: [facility] Start: 01-10-2023 Non-patient / Non-visit Dr. Alice Vanegas Work Phone: [facility] Work Phone: Start: 01-09-2023 Non-patient / Non-visit Dr. Alice Vanegas Work Phone: [facility] Start: 01-09-2023 Non-patient / Non-visit Dr. Alice Vanegas Work Phone: [facility] Work Phone: Start: 01-08-2023 Non-patient / Non-visit Dr. Alice Vanegas Work Phone: [facility] Start: 01-08-2023 Non-patient / Non-visit Dr. Alice Vanegas Work Phone: [facility] Work Phone: Start: 01-08-2023 End: 01-13-2023 Evaluation and management of inpatient Dr. Cody Vanegas Work Phone: [facility]-Progressive Care Unit Work Phone: Start: 12-09-2022 Non-patient / Non-visit Dr. Alice Vanegas Work Phone: [facility] Work Phone: Start: 12-08-2022 Non-patient / Non-visit Dr. Alice Vanegas Work Phone: [facility] Work Phone: Start: 12-08-2022 End: 12-09-2022 Evaluation and management of inpatient [facility] Cody [facility] Work Phone: Start: 12-05-2022 Orders Only Ynf Lares Work Phone: Hematology/Oncology Comment on above: Essential thrombocyt osis (HCC) (Primary Dx); Pancreas cyst; Personal history of other malignant neoplasm of skin Start: 12-02-2022 End: 12-02-2022 Emergency department patient visit Dr. Cody Vanegas Work Phone: [facility]-Emergency Department Start: 11-16-2022 End: 11-16-[address] Cody Vanegas Work Phone: [facility] Start: 09-14-2022 End: 09-14-[address] Cody Vanegas Work Phone: [facility] Start: 09-06-2022 Refill Javier Ku MD Work Phone: Hematology/Oncology Comment on above: Refill Request Start: 09-05-2022 End: 09-05-[address] Cody Vanegas Work Phone: [facility] Work Phone: Start: 09-05-2022 End: 09-05-[address] Cody Vanegas Work Phone: [facility]-Laboratory, Specimen Start: 09-05-2022 End: 09-05-2022 ambulatory Javier Ku MD Work Phone: Hematology/Oncology Comment on above: Essential thrombocyt osis (HCC) (Primary Dx); Pancreas cyst; H/O Malignant Neoplasm of Skin: L cheek face: BCC Start: 09-05-2022 End: 09-05-2022 Patient encounter procedure Javier Ku MD [facility] Phone[facility] Start: 08-31-2022 End: 08-31-[address] Cody Vanegas Work Phone: [facility] Work Phone: Start: 08-31-2022 End: 08-31-[address] Cody Vanegas Work Phone: [facility]-Laboratory, [place] [facility] Start: 08-29-2022 End: 08-29-[address] Cody Vanegas Work Phone: [facility] Work Phone: Start: 08-29-2022 End: 08-29-[address] Cody Vanegas Work Phone: [facility]-Laboratory,Rajni re Start: 08-25-2022 Telephone encounter Jair Lipscomb MD Work Phone: Hematology/Oncology Comment on above: Results Start: 07-31-2022 Telephone encounter Jair Lipscomb MD Work Phone: Hematology/Oncology Comment on above: Patient Question Start: 05-16-2022 End: 05-16-[address] Cody Vanegas Work Phone: [facility] Start: 03-21-2022 Orders Only Yfn Lares Work Phone: Hematology/Oncology Comment on above: Essential thrombocyt osis (HCC) (Primary Dx) Start: 12-05-2021 End: 12-05-2021 Patient encounter procedure [facility]-Outpatient Breast Imaging Start: 09-13-2020 Review [facility] Start: 06-19-2018 Evaluation and management of inpatient [facility] Facility:[facility] Start: 06-05-2018 Patient encounter procedure [facility] Facility:[facility] Procedures Date Procedure Procedure Detail Performing Clinician Start: 09-05-2024 Computed tomography of abdomen and pelvis with intravenous contrast Dr. Cody Vanegas DO Work Phone: Start: 08-20-2024 US scan of thyroid Dr. Cody Vanegas DO Work Phone: Start: 05-08-2024 Dual energy X-ray absorptiometry Dr. Franny Vanegas DO Work Phone: Start: 10-26-2023 Plain x-ray of pelvis and lower extremity Dr. Cody Vanegas Work Phone: Start: 08-29-2023 US scan of thyroid Dr. Cody Vanegas Work Phone: Start: 01-13-[address] Cody Vanegas Work Phone: Start: 01-13-[address] Cody Vanegas Work Phone: Start: 01-13-2023 Plain chest X-ray Dr. Cody Vanegas Work Phone: Start: 01-11-[address] Cody norwood Work Phone: Start: 01-08-2023 End: 01-08-[address] Cody norwood Work Phone: Start: 01-07-2023 Computed tomography angiography of abdominal and/or pelvic blood vessel Dr. Cody Vanegas Work Phone: Start: 01-07-2023 CT of head without contrast Dr. Cody diane Work Phone: Start: 01-07-2023 Plain chest X-ray Dr. Cody Vanegas Work Phone: Start: 01-07-2023 Measurement of occult blood in stool specimen using immunoassay Dr. Cody Vanegas Work Phone: Start: 12-08-2022 CT of pelvis without contrast Dr. Cody hui Work Phone: Start: 12-02-2022 CT of abdomen and pelvis without contrast Dr. Cody Vanegas Work Phone: Start: 11-16-2022 Plain x-ray of pelvis and lower extremity Dr. Cody Vanegas Work Phone: Start: 09-14-2022 Plain x-ray of pelvis and lower extremity Dr. Cody Vanegas Work Phone: Start: 09-14-2022 Radiologic examination of knee Dr. Cody Vanegas Work Phone: Start: 05-16-2022 Plain X-ray of shoulder Dr. Cody Villafana n Work Phone: Start: 12-05-2021 Screening mammography Start: 06-19-2018 Antibody screen Abebe Ibarra Comment on above: Order Comment: [place]: M Is This Patient Going To Surgery? Y Surgery Date: 06/19/18 Start: 06-05-2018 Antibody screen Abebe Ibarra Comment on above: Order Comment: [place]: M Is This Patient Going To Surgery? Y Surgery Date: 06/19/18 Bone density scan Leslie Gra vius Comment on above: 2019 bowel R collectomy 1993 Jasm in [facility] breast biopsy 2002 Leslie Gr [facility] Colonoscopy Leslie [facility] Comment on above: unsure of yr with dr ren due back in 10 yrs gallbladder removal 2010 Abdullahi min [facility] heart cath Leslie [facility] Comment on above: 2014 L total knee replacement 2017 Leslie [facility] mohs surgery face skin cancer 2009 Leslie [facility] partial R shoulder 2009 Jasm in [facility] R shoulder scar tissue 2009 Leslie [facility] R thumb carpel tunnel Leslie [facility] Comment on above: 2017 R wrist tendon repair 2018 J asmin [facility] total L hip re-replacement 2012 Leslie [facility] total L hip replacment 1990 Leslie [facility] total R hip replacement 1996 Leslie [facility] Plan of Treatment Date Care Activity Detail Author Start: 11-06-2025 DIABETES SCREEN DIABETES SCREEN [facility] Start: 11-06-2025 Diabetes Screening Diabetes Screenin g [place] Start: 08-23-2025 DIABETES SCREEN DIABETES SCREEN [facility] Start: 04-10-2025 DIABETES SCREEN DIABETES SCREEN [facility] Start: 11-06-2024 End: 11-06-2024 Patient encounter procedure 11/06/2024 11:00 AM EDT Office Visit [facility] [address] [facility] 3[address] Floor [place], [place] [id number] Kellie Servin MD [address] [place], [place] [id number] F/U HPB Conference [facility] Comment on above: F/U HPB Conference Start: 09-14-2024 DIABETES SCREEN DIABETES SCREEN [facility] Start: 09-05-2024 [facility] Start: 07-25-2024 End: 06-03-2025 EGD DIAGNOSTIC [facility] Work Phone: Comment on above: Expected: 07/25/2024 , Expires: 06/03/2025 Start: 07-02-2024 Advance Directive Discussion Advance Directive Discussion [place] Start: 03-02-2024 Covid-19 Vaccine () Covid-19 Vaccine () [place] Start: 09-06-2023 End: 11-06-2023 Comprehensive metabolic 2000 panel - Serum or Plasma COMP METABOLIC PANEL Lab Routine Essential thrombocytosis (HCC) Expected: 09/06/2023, Expires: 11/06/2023 [facility] Work Phone: Comment on above: Expected: 09/06/2023 , Expires: 11/06/2023 Start: 07-02-2023 Advance Directive Discussion Advance Directive Discussion [place] Start: 07-02-2023 Depression Assessment Depression Ass essment [place] Start: 03-27-2023 Iv infusion therapy/prophylaxis /dx 1st to 1 hr THER/PROPH/DIAG IV INF INIT [facility] Start: 03-02-2023 Covid-19 Vaccine () Covid-19 Vaccine () [place] Start: 03-02-2023 Influenza vaccination Influenza Vacc ine (#1) [place] Start: 02-25-2023 Urine microalbumin profile DTa P,Tdap,Td Vaccine (2 - Td or Tdap) [place] Start: 01-13-2023 Bacteria identified in Urine by Culture Urine Culture [facility] Start: 01-13-2023 Patient discharge [facility] Start: 01-13-2023 [facility] Start: 01-13-2023 [facility] Start: 01-12-2023 [facility] Start: 01-11-2023 Catheterization of vein [facility] Start: 01-11-2023 Catheterization of vein [facility] Start: 01-11-2023 Following clinical p athway protocol [facility] Start: 01-11-2023 [facility] Start: 01-10-2023 [facility] Start: 01-08-2023 End: 01-09-2023 [facility] Start: 01-08-2023 End: 01-08-2023 Administration of blood product [facility] Start: 01-08-2023 Referral to occupati onal therapist [facility] Start: 01-08-2023 Referral to service [facility] Start: 01-08-2023 Catheterization of vein [facility] Start: 01-08-2023 Following clinical p athway protocol [facility] Start: 01-08-2023 Assessment of risk o f venous thromboembolism [facility] Start: 01-08-2023 Inhalation therapy procedure [facility] Start: 01-08-2023 Insertion of cathete r into peripheral vein [facility] Start: 01-08-2023 Measuring intake and output [facility] Start: 01-08-2023 Providing care accor ding to standard [facility] Start: 01-08-2023 Provision of activit y privileges [facility] Start: 01-08-2023 Referral to gastroenterology service [facility] Start: 01-08-2023 Verification routine [facility] Start: 01-08-2023 Admission procedure [facility] Start: 01-07-2023 Administration of bl ood product [facility] Start: 01-07-2023 Leukocyte reduced re d blood cells [facility] Start: 12-09-2022 Patient discharge [facility] Start: 12-09-2022 Referral to service [facility] Start: 12-08-2022 Consultation [facility] Start: 12-08-2022 Following clinical p athway protocol [facility] Start: 12-08-2022 Ambulation without limitation [facility] Start: 12-08-2022 Assessment of risk o f venous thromboembolism [facility] Start: 12-08-2022 Incentive spirometry [facility] Start: 12-08-2022 Insertion of cathete r into peripheral vein [facility] Start: 12-08-2022 Measuring intake and output [facility] Start: 12-08-2022 Oxygen therapy [facility] Start: 12-08-2022 Providing care accor ding to standard [facility] Start: 12-08-2022 Referral to occupati onal therapist [facility] Start: 12-08-2022 Referral to service [facility] Start: 12-08-2022 [facility] Start: 12-08-2022 Admission procedure [facility] Start: 12-06-2022 End: 02-05-2023 CBC W Auto Differential panel - Blood CBC + DIFF Lab STAT Essential thrombocytosis (HCC) Pancreas cyst Personal history of other malignant neoplasm of skin Expected: 12/06/2022, Expires: 02/05/2023 [facility] Work Phone: Comment on above: Expected: 12/06/2022 , Expires: 02/05/2023 Start: 09-14-2022 Patient referral [facility] Work Phone: Start: 07-02-2022 ADVANCE DIRECTIVE DISCUSSION ADVANCE DIRECTIVE DISCUSSION [place] Start: 07-02-2022 DEPRESSION ASSESSMENT DEPRESSION ASS ESSMENT [place] Start: 03-22-2022 End: 05-22-2022 CBC W Auto Differential panel - Blood CBC + DIFF Lab STAT Essential thrombocytosis (HCC) Expected: 03/22/2022, Expires: 05/22/2022 [facility] Work Phone: Comment on above: Expected: 03/22/2022 , Expires: 05/22/2022 Start: 03-22-2022 End: 05-22-2022 Comprehensive metabolic 2000 panel - Serum or Plasma COMP METABOLIC PANEL Lab Routine Essential thrombocytosis (HCC) Expected: 03/22/2022, Expires: 05/22/2022 [facility] Work Phone: Comment on above: Expected: 03/22/2022 , Expires: 05/22/2022 Start: 03-02-2022 Influenza vaccination INFLUENZA (#1) [place] Start: 08-23-2021 COVID-19 VACCINE (4 - Booster for Pfizer series) COVID-19 VACCINE (4 - Booster for Pfizer series) [place] Start: 07-02-2021 ADVANCE DIRECTIVE DISCUSSION ADVANCE DIRECTIVE DISCUSSION [place] Start: 04-15-2012 PNEUMOCOCCAL: 65+ (2 - PCV) PNEUMOCOCCAL: 65+ (2 - PCV) [place] Start: 09-21-2010 RSV Vaccine (1 - 1-d ose 75+ series) RSV Vaccine (1 - 1-dose 75+ series) [place] Start: 1995 RSV Vaccine (1 - 1-d ose 60+ series) RSV Vaccine (1 - 1-dose 60+ series) [place] Start: 09-21-1985 SHINGRIX VACCINE (1 of 2) PANDYA GRIX VACCINE (1 of 2) [place] Start: 09-21-1954 Urine microalbumin profile DTAP,TDAP ,TD (1 - Tdap) [place] Start: 09-21-1953 Anxiety Screening Anxiety Screening [place] Start: 09-21-1953 Depression Screening Depression Scre ening [place] End: 09-05-2023 CBC W Auto Differential panel - Blood CBC + DIFF Lab Routine Essential thrombocytosis (HCC) Every 3 months for 8 Occurrences starting 09/05/2022 until 09/05/2023 [facility] Work Phone: Comment on above: Every 3 months for 8 Occurrences starting 09/05/2022 until 09/05/2023 Patient Education [facility] Work Phone: Patient referral [facility] Work Phone: [facility] Immunizations Immunization Date Immunization Notes Care Provider [employer] 03-31-2022 influenza virus vacc ine, unspecified formulation Fran Miller MD Work Phone: [place] 04-15-2011 pneumococcal polysaccharide vaccine, 23 valent Yfn Marin DO Work Phone: [place] Payers Date Payer Category Payer Self-pay [id number] 2021 Private Health Insurance MMO MED ICARE SUPPLEMENT [id number] 2021 Unknown MMO MMO MEDICARE SUPPLEMENT [id number] 2021-Present [phone] [address] [place] [address] Indemnity [id number] 2021 Unknown [id number] 2010 Unknown [id number] 2000 Medicare [id number] 2000 Medicare [id number] Unknown [id number] Unknown [id number] Unknown [id number] Unknown [id number] Unknown [id number] Unknown [id number] Unknown [id number] Unknown [id number] 462 Unknown [id number] Unknown [id number] Unknown [id number] Unknown [id number] 462 Unknown [id number] 462 Unknown [id number] 462 Unknown [id number] 462 Unknown [id number] 462 Unknown [id number] 462 Unknown [id number] 462 Social History Date Type Detail Facility Start: 09-05-2022 End: 05-19-2024 Exercise History Exercise History [facility] Work Phone: Comment on above: 3 days per wk Start: 02-24-2021 End: 09-14-2023 Tobacco smoking status PAIS Unknown if ever smoked [facility] Start: 1935 Sex Assigned At Female C [facility] Start: 09-05-2024 Tobacco smoking stat us NHIS Never smoked tobacco [place] Start: 09-21-2021 End: 11-06-2024 Alcohol intake Current non-drinker of alcohol (finding) [place] Start: 09-05-2022 End: 05-19-2024 Tobacco use panel [place] National Score (1-100), lower number is lower risk Not on file [place] Start: 12-21-2019 Gender identity Identifies as female gender (finding) [place] Start: 12-21-2019 Sexual orientation Heterosexual (fin ding) [place] Start: 09-05-2024 Sex Female (finding) [facility] Medical Equipment Procedure Code Equipment Code Equipment Origin al Text Equipment Identifier Dates EGD, with monitored anesthesia care HEMOSPRAY FDA Start: 01-08-2023 EGD, with monitored anesthesia care Non-organic haemostatic agent [id number] FDA Start: 01-08-2023 EGD, with monitored anesthesia care HEMOSPRAY FDA Start: 01-08-2023 EGD, with monitored anesthesia care HEMOSPRAY FDA Start: 01-08-2023 EGD, with monitored anesthesia care HEMOSPRAY FDA Start: 01-08-2023 EGD, with monitored anesthesia care HEMOSPRAY FDA Start: 01-08-2023 EGD, with monitored anesthesia care HEMOSPRAY FDA Start: 01-08-2023 EGD, with monitored anesthesia care HEMOSPRAY FDA Start: 01-08-2023 EGD, with monitored anesthesia care HEMOSPRAY FDA Start: 01-08-2023 EGD, with monitored anesthesia care HEMOSPRAY FDA Start: 01-08-2023 EGD, with monitored anesthesia care HEMOSPRAY FDA Start: 01-08-2023 EGD, with monitored anesthesia care HEMOSPRAY FDA Start: 01-08-2023 Goals Date Patient Goal Desired Activity /State Functional Status Date Assessment Result Facility 01-13-2023 Functional status Ambulates [facility] Work Phone: 12-09-2022 Functional status Ambulates;Chair;Bedrest [facility] Work Phone: 08-13-2014 Are you deaf, or do you have serious difficulty hearing No 08/13/2014 10:32 AM Opal Solomon LPN No [place] 08-13-2014 Are you blind, or do you have serious difficulty seeing, even when wearing glasses No 08/13/2014 10:32 AM Opal Solomon LPN No [place] 08-13-2014 Do you have serious difficulty walking or climbing stairs No 08/13/2014 10:32 AM Opal Solomon LPN No [place] 08-13-2014 Do you have difficul ty dressing or bathing No 08/13/2014 10:32 AM Opal Solomon LPN No [place] 08-13-2014 Because of a physica l, mental, or emotional condition, do you have difficulty doing errands alone such as visiting a physician's office or shopping No 08/13/2014 10:32 AM Opal Solomon LPN No [place] Mental Status Date Assessment Result Facility 09-05-2024 Cognitive function Voice/Name [facility] Work Phone: 03-27-2023 Cognitive function Voice/Name [facility] Work Phone: 01-13-2023 Cognitive function Voice/Name [facility] Work Phone: 12-09-2022 Cognitive function Voice/Name [facility] Work Phone: 08-13-2014 Because of a physica l, mental, or emotional condition, do you have serious difficulty concentrating, remembering, or making decisions No 08/13/2014 10:32 AM Opal Solomon LPN No [place] Clinical Notes 05-23-2010 to 11-06-2024 Kellie Servin MD - 11/06/2024 11:00 AM Kellie Ly MD - 10/23/2024 1:03 PM Kellie Ly MD - 10/23/2024 1:03 PM EDT Note Date & Type Note Facility 11-06-2024 History of Present illness Narrative [facility] SURGERY PROGRESS NOTE Subjective INTERVAL HISTORY OF PRESENT ILLNESS: Continues to have some abdominal fullness and pressure, similar to before Discussed the conversation at [facility] conference and concern for infection if stents were placed into the cyst and would not recommend that. Objective PHYSICAL EXAM: BP 120/68 Pulse 70 Ht 4' 11 (1.50m) Wt 121 lb (54.9kg) SpO2 96% BMI 24.43 kg/(m^2). Physical Exam Performed GENERAL: Alert, no distress, cooperative LUNGS: Negative ABDOMEN: Soft, nontender The remainder of the physical exam is noncontributory. DATA: Diagnostic tests reviewed for today's visit: Most recent labs and imaging results. Assessment/Plan 89 year old female with possibly symptomatic MCN. Unclear if her symptoms got better after aspiration of 500cc of fluid endoscopically. Discussed at [facility] conference today. Would not recommend proceeding with stent placement endoscopically. Risks of Whipple outweigh benefit given no evidence of malignancy currently, and patient also not interested in having a Whipple. --Follow-up with me ALVAREZ Servin MD [facility] Surgeon documented in this encounter [place] 11-06-2024 Note HNO ID: [id number] Author: KELLIE SERVIN MD Service: ? Author Type: Physician Type: Progress Notes Filed: 11/26/2024 14:37 Note Text: [facility] SURGERY PROGRESS NOTE Subjective INTERVAL HISTORY OF PRESENT ILLNESS: Continues to have some abdominal fullness and pressure, similar to before Discussed the conversation at [facility] conference and concern for infection if stents were placed into the cyst and would not recommend that. Objective PHYSICAL EXAM: BP 120/68 Pulse 70 Ht 4' 11 (1.50m) Wt 121 lb (54.9kg) SpO2 96% BMI 24.43 kg/(m2). Physical Exam Performed GENERAL: Alert, no distress, cooperative LUNGS: Negative ABDOMEN: Soft, nontender The remainder of the physical exam is noncontributory. DATA: Diagnostic tests reviewed for today's visit: Most recent labs and imaging results. Assessment/Plan 89 year old female with possibly symptomatic MCN. Unclear if her symptoms got better after aspiration of 500cc of fluid endoscopically. Discussed at [facility] conference today. Would not recommend proceeding with stent placement endoscopically. Risks of Whipple outweigh benefit given no evidence of malignancy currently, and patient also not interested in having a Whipple. --Follow-up with me ALVAREZ Servin MD [facility] Surgeon [facility] 11-04-2024 Note HNO ID: [id number] Author: TOÑITO VU MD Service: ? Author Type: Resident Type: Progress Notes Filed: 11/04/2024 14:16 Note Text: [facility] Multidisciplinary [facility]-Pcirb[facility]inel[facility] AND Upper GI Case Conference -- Consensus Note -- Conference Date: 11/04/2024 Case reviewed with physicians from GI, Surgery, AND Radiology services: -- Surgeons - Stefan Garcia [place], [place] -- Gastroenterologists - Fidel Roberts -- Radiologist - [place] Issue(s) Question(s): 89 year old female w/ large symptomatic cyst (440cc aspirated on EUS/FNA 07/2024, CEA 777, amylase <3). Uncertain improvement in symptoms after drainage. ?Is there any endoscopic intervention for symptom control. Pre-conference plan: - Endoscopic intervention Imaging Review: - CT 10/10/2024 Final Consensus Recommendation(s): - Do not recommend endoscopic drainage Toñito Vu MD PhD General Surgery [facility] 10-23-2024 History and physical note [facility] SURGERY H&P Subjective CHIEF COMPLAINT: Pancreatic mucinous cystic neoplasm HISTORY OF PRESENT ILLNESS: Ms. Hudson is a 89 year old female who presents for evaluation of pancreatic cyst. This has been there for many years. She is symptomatic in that she has abdominal fullness and pressure and bloating. She also describes numbness along her costal margin and down her legs which I told her are not related to this cyst. She had an EUS aspiration in 2019 that was consistent with MCN by chemistry. She then presented to Dr. Roblero with the above symptoms. He repeated an EUS and tried to drain the cyst fully but it reaccumulated on most recent scan. It is unclear if she got benefit at all from the drainage - when he asked her if her symptoms improved she thought he was asking about the numbness down her legs and not the abdominal fullness, and now she can't remember if the abdominal fullness got better or not. She is eating well. No unintentional weight loss. No nausea/vomiting. No history of pancreatitis. No family history of pancreatic malignancy. 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 (HCC) Reflux PAST SURGICAL HISTORY Procedure Laterality Date BREAST BIOPSY not sure which side, negative CHOLECYSTECTOMY 08/22/2010 COLONOSCOPY 2006 union resurfacing 07/14/2008 partial right shoulder replacement EGD W/EUS AND FNA/BX 01/28/2020 fna suggests a mucinous cystic neoplasm, cea elevated, hiatal hernia, fundic gland polyps, surgery consult GASTROTOMY W/SUTURE REPAIR BLEEDING ULCER 12/2022 PAST SURGICAL HISTORY OF 1993 right colectomy PAST SURGICAL HISTORY OF bilateral hips PAST SURGICAL HISTORY OF 05/2011 Repair of middle right trigger finger PAST SURGICAL HISTORY OF left thumb repair PAST SURGICAL HISTORY OF 04/23/2013 Left hip surgery SKIN BX, 1 LESION Skin biopsy lichen schlorsis Current Outpatient Medications on File Prior to Visit Medication Sig inulin (FIBER GUMMIES ORAL) Take by mouth. hydroxyurea (HYDREA) 500 mg capsule Take 1 capsule by mouth once daily. multivitamin/iron/folic acid (CENTRUM WOMEN ORAL) Take 1 tablet by mouth once daily. bevacizumab ophthalmic (AVASTIN) 1.25 mg/0.05 mL syringe [...] in each nostril twice daily as needed. No current facility-administered medications on file prior to visit. ALLERGIES Allergen Reactions Ciprofloxacin Rash Itching and rash Amoxicillin GI Upset Biaxin [Clarithromy* GI Upset Atorvastatin Myalgia Sodium Pentathal [T* GI Upset Heavy vomiting FAMILY HISTORY Problem Relation Age of Onset Osteoporosis Mother Diabetes Father Coronary Artery Disease Father Diabetes Brother Social History Tobacco Use Smoking status: Never Smokeless tobacco: Never Vaping Use Vaping status: Never Used Substance Use Topics Alcohol use: No Drug use: No Objective PHYSICAL EXAM: BP 118/60 Pulse 84 Ht 4' 11 (1.50m) Wt 121 lb 12.8 oz (55.2kg) SpO2 96% BMI 24.59 kg/(m^2). Physical Exam Performed GENERAL: Alert, no distress, cooperative LUNGS: Negative ABDOMEN: Soft, nontender and distended The remainder of the physical exam is noncontributory. DATA: Diagnostic tests reviewed for today's visit: Most recent labs and imaging results. EUS Drainage 07/25/24: Extrinsic duodenal compression D1-D2 Large 10 cm anechoic cyst with no nodules/septations seen Aspirated 440 cc clear watery fluid with 19 Ga needle CEA 777 Amylase <3 Cytology (from previous aspiration 2019): features suggest a mucinous cystic neoplasm. Paucicellular specimen. Overtly malignant features not appreciated. Amylase [address] abdomen/pelvis 04/09/24: --Pericardial effusion --Stable cystic lesion in the region of the pancreas and right mid abdomen as described and this may represent a large pseudocyst --Fecal material is seen in the colon --Distention of the stomach Assessment/Plan 89 year old female with large MCN causing abdominal fullness. --[facility] conference to discuss management options that are not resection [place] Servin MD [facility] Surgeon [place] 10-23-2024 History and physical note [facility] SURGERY H&P Subjective CHIEF COMPLAINT: Pancreatic mucinous cystic neoplasm HISTORY OF PRESENT ILLNESS: Ms. Hudson is a 89 year old female who presents for evaluation of pancreatic cyst. This has been there for many years. She is symptomatic in that she has abdominal fullness and pressure and bloating. She also describes numbness along her costal margin and down her legs which I told her are not related to this cyst. She had an EUS aspiration in 2019 that was consistent with MCN by chemistry. She then presented to Dr. Roblero with the above symptoms. He repeated an EUS and tried to drain the cyst fully but it reaccumulated on most recent scan. It is unclear if she got benefit at all from the drainage - when he asked her if her symptoms improved she thought he was asking about the numbness down her legs and not the abdominal fullness, and now she can't remember if the abdominal fullness got better or not. She is eating well. No unintentional weight loss. No nausea/vomiting. No history of pancreatitis. No family history of pancreatic malignancy. 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 (HCC) Reflux PAST SURGICAL HISTORY Procedure Laterality Date BREAST BIOPSY not sure which side, negative CHOLECYSTECTOMY 08/22/2010 COLONOSCOPY 2005 union resurfacing 07/14/2008 partial right shoulder replacement EGD W/EUS AND FNA/BX 01/28/2020 fna suggests a mucinous cystic neoplasm, cea elevated, hiatal hernia, fundic gland polyps, surgery consult GASTROTOMY W/SUTURE REPAIR BLEEDING ULCER 12/2022 PAST SURGICAL HISTORY OF 1993 right colectomy PAST SURGICAL HISTORY OF bilateral hips PAST SURGICAL HISTORY OF 05/2011 Repair of middle right trigger finger PAST SURGICAL HISTORY OF left thumb repair PAST SURGICAL HISTORY OF 04/23/2013 Left hip surgery SKIN BX, 1 LESION Skin biopsy lichen schlorsis Current Outpatient Medications on File Prior to Visit Medication Sig inulin (FIBER GUMMIES ORAL) Take by mouth. hydroxyurea (HYDREA) 500 mg capsule Take 1 capsule by mouth once daily. multivitamin/iron/folic acid (CENTRUM WOMEN ORAL) Take 1 tablet by mouth once daily. bevacizumab ophthalmic (AVASTIN) 1.25 mg/0.05 mL syringe [...] in each nostril twice daily as needed. No current facility-administered medications on file prior to visit. ALLERGIES Allergen Reactions Ciprofloxacin Rash Itching and rash Amoxicillin GI Upset Biaxin [Clarithromy* GI Upset Atorvastatin Myalgia Sodium Pentathal [T* GI Upset Heavy vomiting FAMILY HISTORY Problem Relation Age of Onset Osteoporosis Mother Diabetes Father Coronary Artery Disease Father Diabetes Brother Social History Tobacco Use Smoking status: Never Smokeless tobacco: Never Vaping Use Vaping status: Never Used Substance Use Topics Alcohol use: No Drug use: No Objective PHYSICAL EXAM: BP 118/60 Pulse 84 Ht 4' 11 (1.50m) Wt 121 lb 12.8 oz (55.2kg) SpO2 96% BMI 24.59 kg/(m^2). Physical Exam Performed GENERAL: Alert, no distress, cooperative LUNGS: Negative ABDOMEN: Soft, nontender and distended The remainder of the physical exam is noncontributory. DATA: Diagnostic tests reviewed for today's visit: Most recent labs and imaging results. EUS Drainage 07/25/24: Extrinsic duodenal compression D1-D2 Large 10 cm anechoic cyst with no nodules/septations seen Aspirated 440 cc clear watery fluid with 19 Ga needle CEA 777 Amylase <3 Cytology (from previous aspiration 2019): features suggest a mucinous cystic neoplasm. Paucicellular specimen. Overtly malignant features not appreciated. Amylase [address] abdomen/pelvis 04/09/24: --Pericardial effusion --Stable cystic lesion in the region of the pancreas and right mid abdomen as described and this may represent a large pseudocyst --Fecal material is seen in the colon --Distention of the stomach Assessment/Plan 89 year old female with large MCN causing abdominal fullness. --[facility] conference to discuss management options that are not resection [place] Servin MD [facility] Surgeon documented in this encounter [place] 09-18-[address] complete in [place]. Pt was told the pocket filled back up and she needed to call you. Daughter is also asking about a specialist referral for this? Wed 4:17 PM TANNER Roblero MD I am the specialist. I will call them Wed 4:19 PM Ok thanks Miranda Aguilera September 18, 2024 9:58 AM [place] 09-18-[address] complete in [place]. Pt was told the pocket filled back up and she needed to call you. Daughter is also asking about a specialist referral for this? Wed 4:17 PM TANNER Roblero MD I am the specialist. I will call them Wed 4:19 PM Ok thanks Miranda Aguilera September 18, 2024 9:58 AM documented in this encounter [place] 09-05-2024 Discharge summary [facility] 09-05-2024 Discharge summary Note Date/Time September 05, 2024 3:45pm [facility] Medical Records Department [address] [place] [address] Emergency Department Summary 09/05/24 MR#: [id number] Acct: [id number] Name: KELLIE HUDSON Rep #:[id number] : 1935 88 From: Jamie Lares PCP: Dr. Cody Vanegas, DO Status:REG ER Location: ED HPI History of Present Illness Chief Complaint: Chest Pain Informant: patient and family Narrative Narrative: 88-year-old female presenting to the emergency room with a chief complaint of upper abdominal lower chest tightness. Patient states that for 9 months she hashad paresthesias from the lower chest down to her toes. She states nobody has been able to figure out what is causing it. She has intermittently had some tightness of her upper abdomen lower chest. She states that a couple weeks ago she had fluid drained from a pancreatic cyst at [facility] As an outpatient. She states she went to bed feeling her normal self. When she woke during the night she had this tightness in her upper abdomen. She denies fever nausea vomiting cough. She notes she has been stooling normally. She notes her pants are not fitting any different today. She has had prior cholecystectomy. She does not know why she has had a pancreatic cyst. She has a history of upper GI bleeding. [facility] Medical History Pseudocyst of pancreas Depression Fall Left hip pain Right hip pain Right knee pain Bilateral shoulder pain Pericardial effusion Nonrheumatic tricuspid valve regurgitation Hemorrhoids Idiopathic thrombocythemia Vertigo Osteoporosis Osteoarthritis Hyperlipidemia COPD (chronic obstructive pulmonary disease) Macular degeneration GERD (gastroesophageal reflux disease) Secondary pulmonary arterial hypertension Nodule of left lung Pancreatic cyst Goiter Vitamin D deficiency Home Medications ?Medication ?Instructions ?Recorded ?Last Taken ?Type albuterol sulfate 90 mcg/actuation 1 puff inhalation Q 6H PRN Sob &/Or 02/26/18 Unknown History aerosol inhaler (Ventolin HFA) Wheezing calcium 250 mg (phosphate)-vit D3 1 tab PO DAILY 02/2612/07/22 History 12.5 mcg (500 unit) chewable tablet (Citracal-D3 Gummies) docusate sodium 100 mg capsule 100 mg PO DAILY 8 12/07/22 History (Stool Softener) fluticasone propionate 50 1 spray intranasal DAILY PRN 02/26/18 12/07/22 History mcg/actuation nasal Allergies spray,suspension (Flonase Allergy Relief) hydroxyurea 500 mg capsule 500 mg PO DAILY 09/14/22 History acetaminophen 500 mg tablet 1,000 mg (2 x 500 mg) PO Q 8 6 days 12/09/22 Unknown Rx #36 tabs meclizine 25 mg chewable tablet 25 mg PO DAILY PRN PRN dizziness 07/09/23 Unknown History (Antivert) cetirizine 10 mg tablet (Zyrtec) 10 mg PO DAILY PRN AL LERGIES 07/20/23 Unknown History cyanocobalamin (vitamin B-12) 1,000 mcg PO DAILY 07/20 Unknown History 1,000 mcg tablet inulin-chromium picolinate 2 3 tab PO DAILY 07/20/23 U nknown History gram-100 mcg chewable tablet (Fiber Select Gummies) guaifenesin 600 mg tablet, 600 mg PO Q12H Cough Unknown History extended release 12 hr (Mucinex) zoledronic acid 5 mg/100 mL in 1 ea .Route .Q2YEAR 07/25 Unknown History mannitol 5 %-water intravenous piggybck (Reclast) Allergy/AdvReac Type Severity Reaction Status Date / Time amoxicillin AdvReac Upset Verified 09/05/24 07:23 Stomach atorvastatin (From Lipitor) AdvReac myalgias Verified 09/05/24 07:23 ciprofloxacin (From Cipro) AdvReac Itching Verified 09/05/24 07:23 clarithromycin (From Biaxin) AdvReac Vomiting Verified 09/05/24 07:23 thiopental (From Pentothal) AdvReac Nausea Verified 09/05/24 07:23 Family History Brother CAD (coronary artery disease) Diabetes Father Diabetes Myocardial infarction Surgical History History of appendectomy H/O total knee replacement (06/2018) History of right and left heart catheterization (09/22/13) S/P tendon repair History of carpal tunnel release Hx of cholecystectomy H/O shoulder surgery History of right hip replacement H/O colectomy History of total left hip replacement Social History Smoking Status: Never smoker alcohol intake: never ROS ROS ED Constitutional Constitutional ED: Denies chills or weight loss Eyes Eyes: Denies change in vision or diplopia ENT ENT ED: Denies ear pain, rhinorrhea or sore throat Cardiovascular Cardiovascular: Reports other Details: Lower chest tightness ; Denies chest pain, orthopnea, palpitations or racing heartbeat Respiratory/Chest Respiratory/Chest: Denies cough, dyspnea or orthopnea Gastrointestinal Gastrointestinal: Reports other Details: Upper abdominal tightness ; Denies abdominal pain, diarrhea, nausea or vomiting Genitourinary Genitourinary ED: Denies dysuria, hematuria or urinary frequency Musculoskeletal Musculoskeletal: Denies arthralgias or myalgias Integumentary Denies abscess or rash Neurologic Neurologic: Reports paresthesias; Denies headache(s) or weakness Psychiatric Psychiatric: Denies anxiety, depression, suicidal ideation or suicidal thoughts Endocrine Endocrinology: Denies polydipsia, polyphagia or polyuria Allergic/Immunologic Allergic/Immunologic ED: Denies mouth swelling, tongue swelling or urticaria EXAM Physical Exam Const Vital Signs: 09/05/24 07:15 09/05/24 08:14 09/05/24 09:14 Temperature 98.1 F Temperature Source Temporal Pulse Rate 87 65 64 Respiratory Rate 16 19 H 19 H Blood Pressure 186/75 H 134/66 H 146/67 H Blood Pressure Mean 112 88 93 Pulse Ox 99 99 99 Oxygen Delivery Method Room Air Room Air Room Air 09/05/24 10:00 09/05/24 11:00 09/05/24 12:56 Temperature Temperature Source Pulse Rate 72 68 75 Respiratory Rate 15 16 16 Blood Pressure 139/67 H 136/61 H 82/57 L Blood Pressure Mean 91 86 65 Pulse Ox 100 99 97 Oxygen Delivery Method Room Air Room Air Room Air 09/05/24 13:15 09/05/24 14:00 Temperature Temperature Source Pulse Rate 82 71 Respiratory Rate 16 16 Blood Pressure 100/69 127/59 H Blood Pressure Mean 79 81 Pulse Ox 98 97 Oxygen Delivery Method Room Air Room Air Positive well nourished and well developed General Appearance ED: well developed HEENT Reports normocephalic, head/scalp atraumatic and moist mucous membranes Eyes PERRL and EOMs intact bilaterally Neck no lymphadenopathy, supple and no JVD Resp normal respiratory effort and clear to auscultation bilaterally Cardio regular rate, regular rhythm and no murmurs GI GI Narrative: Mild tenderness to palpation along the upper abdomen and right side of the abdomen. No guarding no rebound. Inspection: Negative for abdominal distention Auscultation: normoactive bowel sounds Palpation: soft Back/Spine no CVA tenderness and normal ROM Extremity normal to inspection General Extremety ED: Negative for edema General Extremity: Negative for edema Neuro oriented x3 and CN's II-XII intact bilaterally Sensorium / Orientation: alert Motor Exam: strength 5/5 throughout Psych mental status grossly normal Mood & Affect: Negative for depressed or tearful Skin no rashes or lesions noted and no wounds MDM MDM MDM Narrative Medical decision making narrative: Differential diagnosis includes pancreatic pseudocyst bowel obstruction gastric outlet obstruction pancreatitis colitis diverticulitis abscess mesenteric ischemia Patient's white count is 3.8 hemoglobin of 14 the count 333. Patient noted to have normal anion gap BUN of 15 creatinine 0.59 troponin is normal at 6 EKG is nonischemic normal LFTs normal lipase. CT then pelvis with IV contrast was obtained. Please see radiologist read for full details. Essentially there is redemonstration of the pancreatic pseudocyst. So she had this drained at the end of July it appears to reaccumulated. However I do not see that is causing obstruction. It does push on the vena cava but her legs are not edematous. Patient's abdominal exam continues to be soft. She tells me that it feels like would. Unfortunately I do not see any change in the time that she has been here. I spoke with the patient and her daughter several times. I answered multiple questions. The daughter is been googling symptoms and diagnoses and ask good questions. She is asked very specifically whether or not this could beintercostal neuralgia or vagal nerve syndrome. I spoke with Dr. Larios and we reviewed her complaints. I am not seeing anything emergent. I do not feel this is mesenteric ischemia. Her biggest complaint is this bandlike sensation of the upper abdomen but she does not have excessive gas. I do not see distention of the stomach. She is having regular stools. Patient began to feel nauseated. Nursing informed me of this and I ordered Zofran. The patient had a vasovagal syncope while throwing up. She recovered quickly from this. During the event she had bradycardia down to the 40s with a blood pressure of 40/20. She eventually recovered to the point whereshe could drink Coke and have some saltines. I once again spoke with the patient and her daughter. We talked about different follow-ups. For the 9 months of these paresthesias from the lower rib cage inferiorly she may wish to see neurology. I do not think she needs any emergent MRI of the spine but that is something that we did talk about. I think that she would benefit from a hepatobiliary surgical consult. They have inform me that they do not wish to see the surgeon that drained her [facility] again. They would most likely need to be seen at [facility] or [facility]. But I do not feel this needs to be done at a emergent basis. At this point I believe the patient can be discharged home. Given that this has been months of symptoms andonly thing different today is that her symptomology occurred before she ate. Not sure what to make out of the difference of the timing of her symptoms but atthis point she appears stable. History & Record Review Discussion w/independent historian: Patient Lab Data Attestation: I reviewed the patient's lab results. Labs: Laboratory Results - last 24 hr 09/05/24 07:50 WBC 3.8 L RBC 4.09 L Hgb 14.0 Hct 41.1 MCV 100.5 H MCH 34.2 H MCHC 34.1 RDW Std Deviation 51.1 H RDW Coeff of Cyril 14.0 Plt Count 333 MPV 9.1 Immature Gran % (Auto) 0.300 Neut % (Auto) 61.6 Lymph % (Auto) 24.3 [place] % (Auto) 10.6 H Eos % (Auto) 2.4 Baso % (Auto) 0.8 Absolute Neuts (auto) 2.3 Absolute Lymphs (auto) 0.92 Nucleated RBC % 0 Sodium 136 Potassium 4.0 Chloride 104 Carbon Dioxide 20.8 L Anion Gap 12 BUN 15 Creatinine 0.59 L Estim Creat Clear Calc 37.82 L Est GFR (MDRD) Non-Af 87 BUN/Creatinine Ratio 24.8 H Glucose 99 Calcium 9.6 Total Bilirubin 0.44 Direct Bilirubin 0.21 AST 19 ALT 17 Alkaline Phosphatase 111 H Troponin T High Sens 6 Total Protein 6.4 Albumin 4.0 Globulin 2.4 Lipase 36 Radiography Diagnostic Testing: Clinical Impression(s) from Imaging Studies Abdomen/Pelvis CT 09/05/24 09:06 IMPRESSION: Stable examination with a dominant cystic mass in the right midabdomen as described. Small pericardial effusion. One or more dose reduction techniques were used (e.g., Automated exposure control, adjustment of the mA and/or kV according to patient size, use of iterative reconstruction technique). Reading Location: [facility] EKG Initial EKG: Attestation: I personally reviewed and interpreted this EKG as follows: Comments: Normal sinus rhythm ventricular rate of 77 bpm no significant change from prior Management Discussion w/another healthcare provider: [employer] (Dr Larios) Discharge Plan Triage Chief Complaint: Chest Pain ED Provider: Jamie Sanchez Dx/Rx/DC Orders Clinical Impression: Pancreatic cyst, Abdominal pain, Paresthesias, Syncope Prescriptions: No Action calcium phosphate-vitamin D3 [Citracal-D3 Gummies] 250 mg calcium- 500 unit tablet,chewable 1 tab PO DAILY fluticasone propionate [Flonase Allergy Relief] 50 mcg/actuation spray,suspension 1 spray INTRANASAL DAILY PRN (Reason: Allergies) docusate sodium [Stool Softener] 100 mg capsule 100 mg PO DAILY albuterol sulfate [Ventolin HFA] 90 mcg/actuation HFA aerosol inhaler 1 puff INHALATION Q6H PRN (Reason: Sob &/Or Wheezing) hydroxyurea 500 mg capsule 500 mg PO DAILY Patient Comments: 2 days a week 1000 mg. The other days 500 mg daily/ guaifenesin [Mucinex] 600 mg tablet extended release 12hr 600 mg PO Q12H zoledronic [id number] [Reclast] 5 mg/100 mL piggyback 1 ea .Route .Q2YEAR Patient Comments: .Qyear Rx Instructions: .Qyear cyanocobalamin (vitamin B-12) 1,000 mcg tablet 1,000 mcg PO DAILY Fiber Select Gummies 2-100 gram-mcg tablet,chewable 3 tab PO DAILY Patient Comments: 2 tabs in morning, 1 at dinner acetaminophen 500 mg Tablet 1,000 mg PO Q8 6 Days Qty: 36 0RF cetirizine [Zyrtec] 10 mg tablet 10 mg PO DAILY PRN (Reason: ALLERGIES) meclizine [Antivert] 25 mg tablet,chewable 25 mg PO DAILY PRN PRN (Reason: dizziness) Primary Care Provider: Cody Vanegas Referrals: Cody Vanegas, [Primary Care Provider] - As Needed Activity Restrictions/Additional Instructions: I would recommend that you call the surgeon that drainage or pseudocyst on your pancreas and advised them that it has reaccumulated to about the same size. There is a strong chance that the cyst will need to have more definitive care. However at this time not seeing evidence of obstruction and do not feel that hospitalization is needed. Print Language: Chinese Disposition Disposition: Home, Self Care What to do if you have Problems For any increased pain, shortness of breath, bleeding, nausea or vomiting, chestpain, or any unexpected problems, contact your Primary Care Provider. Call [facility] ([phone]) or report to the closest Emergency Room. Call 911 if necessary. 09/05/24 1604 <Electronically signed by Jamie Sanchez DO> Cosigner Signature (if applicable): CC: Dr. Cody Vanegas DO ~ Signed [facility] Work Phone: [phone]) 955-302203-07-2025 Radiology Diagnostic study note [facility] Imaging Services [address] [facility] [place], [place] [address] Abdomen/Pelvis W IV Cont ONLY MR#: [id number] Acct: [id number] Name: KELLIE HUDSON Rep #: [id number] : [id number] F [id number] From: Andi Mclain MD PCP: Dr. Cody Vanegas DO Status: REG ER Study:Abdomen/Pelvis W IV Cont ONLY Date of E xam: 09/05/24 Exam# [id number] Ordering Dr: Manuela Sanchez DO PROCEDURE: ABDOMEN/PELVIS W IV CONT ONLY REASON FOR EXAM: Upper abdominal pain. TECHNIQUE: Abdomen and pelvis CT with intravenous contrast. No oral contrast. IV CONTRAST: 100 cc of Isovue-300. COMPARISON: Comparison is made with prior study dated April 09, 2024. FINDINGS: Lung bases: Clear. Elevation of the posterior aspect of the right hemidiaphragm. Anterior pericardial thickness suggestive of a small pericardial effusion. Liver: Unremarkable. Gallbladder: Surgically absent. Spleen: Multiple calcified splenic granulomas. Pancreas: Once again, there is 11.7 cm x 7.8 cm x 8.1 cm cystic mass in the region of the head of the pancreas with extension inferiorly into the right mid abdomen. Tiny calcification are seen along its inferior margin. This is essentially unchanged. Adrenals: Unremarkable. Kidneys: Unremarkable. Bladder: Unremarkable. Reproductive Organs: Calcified fibroid uterus. Bowel: Unremarkable. Appendix: Normal. Lymph nodes: No suspicious lymph node enlargement. Vasculature: Mild diffuse atherosclerotic calcifications are noted. Peritoneum / Retroperitoneum: No ascites. No free air. Bones: Degenerative changes of the spine. The patient is status post bilateral hip replacement causing a lot of beam hardening artifact in the pelvis limiting the evaluation of the pelvic structures. CT/Abdomen/Pelvis W IV Cont ONLY IMPRESSION: Stable examination with a dominant cystic mass in the right midabdomen as described. Small pericardial effusion. One or more dose reduction techniques were used (e.g., Automated exposure control, adjustment of the mA and/or kV according to patient size, use of iterative reconstruction technique). Reading Location: [id number] CC: Dr. Jamie Sanchez, DO; Dr. Cody Vanegas DO ~ Dye Blender: Signed [facility]02-10-2025 NoteHNO ID: [id number] Author: Sd ROBLERO MD Service: ? Author Type: Physician Type: Progress Notes Filed: 08/11/2024 09:41 Note Text: Keith Roblero MD General Surgery [address] [place] [address], [address] [place] [address] Patient referred by: No referring provider defined for this encounter. HPI: Ms. Hudson is a 88 year old female who presents today for follow-up after her EGD with EUS and drainage of her pancreatic cyst. She had a very large pancreatic cyst in the head of the pancreas (11 cm) I attempted to drain this completely. Amylase level in the fluid was less than 3 CEA level of the fluid was 777. In December 2019 it was 957. 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 She did not have any problems related to the procedure but also did not really notice any change or improvement or resolution of her symptoms. She continues to have intermittent fullness in the epigastric area. She does not have any significant pain. She has some belching and difficulties with gas. It does not seem like classic heartburn symptoms but could be. She also describes some constipation and difficulties with her bowels. She takes fiber and Colace and sometimes Dulcolax. 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 Reflux PAST SURGICAL HISTORY Procedure Laterality Date BREAST BIOPSY not sure which side, negative CHOLECYSTECTOMY 08/22/2010 COLONOSCOPY 2005 union resurfacing 07/14/2008 partial right shoulder replacement EGD W/EUS AND FNA/BX 01/28/2020 fna suggests a mucinous cystic neoplasm, cea elevated, hiatal hernia, fundic gland polyps, surgery consult GASTROTOMY W/SUTURE REPAIR BLEEDING ULCER 12/2022 PAST SURGICAL HISTORY OF 1993 right colectomy PAST SURGICAL HISTORY OF bilateral hips PAST SURGICAL HISTORY OF 05/2011 Repair of middle right trigger finger PAST SURGICAL HISTORY OF left thumb repair PAST SURGICAL HISTORY OF 04/23/2013 Left hip surgery SKIN BX, 1 LESION Skin biopsy lichen schlorsis FAMILY HISTORY Problem Relation Age of Onset Osteoporosis Mother Diabetes Father Coronary Artery Disease Father Diabetes Brother Social History Tobacco Use Smoking status: Never Smokeless tobacco: Never Vaping Use Vaping status: Never Used Substance Use Topics Alcohol use: No Drug use: No Current Outpatient Medications Medication Sig inulin (FIBER GUMMIES ORAL) Take by mouth. hydroxyurea (HYDREA) 500 mg capsule Take 1 capsule by mouth once daily. multivitamin/iron/folic acid (CENTRUM WOMEN ORAL) Take 1 tablet by mouth once daily. bevacizumab ophthalmic (AVASTIN) 1.25 mg/0.05 mL syringe [...] in each nostril twice daily as needed. No current facility-administered medications for this visit. ALLERGIES Allergen Reactions Ciprofloxacin Rash Itching and rash Amoxicillin GI Upset Biaxin [Clarithromy* GI Upset Atorvastatin Myalgia Sodium Pentathal [T* GI Upset Heavy vomiting REVIEW OF SYSTEMS: ROS PHYSICAL EXAM: BP 122/74 Pulse 90 Ht 4' 11 (1.50m) Wt 124 lb (56.2kg) BMI 25.03 kg/(m2). Last 2 Encounter Wt Readings: Date: Wt: 08/11/2024 56.2 kg (124 lb) 05/19/2024 56 kg (123 lb 7.3 oz) Physical Exam Vitals reviewed. Constitutional: General: She is not in acute distress. Appearance: Normal appearance. She is not ill-appearing. Abdominal: General: Abdomen is flat. There is no distension. Palpations: Abdomen is soft. There is no mass. Tenderness: There is no abdominal tenderness. Hernia: No hernia is present. Neurological: Mental Status: She is (more content not included)...[facility] 08-11-2024 History of Present illness Narrative* Sd Roblero MD - 08/11/2024 9:03 AM EST Images from the original note were not included. Keith Roblero MD General Surgery [address] [place] [address], [address] [place] [address] Patient referred by: No referring provider defined for this encounter. HPI: Ms. Hudson is a 88 year old female who presents today for follow-up after her EGD with EUS and drainage of her pancreatic cyst. She had a very large pancreatic cyst in the head of the pancreas (11 cm) I attempted to drain this completely. Amylase level in the fluid was less than 3 CEA level of the fluid was 777. In December 2019 it was 957. 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 She did not have any problems related to the procedure but also did not really notice any change orimprovement or resolution of her symptoms. She continues to have intermittent fullness in the epigastric area. She does not have any significant pain. She has some belching and difficulties with gas. It does not seem like classic heartburn symptoms but could be. She also describes some constipation and difficulties with her bowels. She takes fiber and Colace and sometimes Dulcolax. 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 Reflux PAST SURGICAL HISTORY Procedure Laterality Date BREAST BIOPSY not sure which side, negative CHOLECYSTECTOMY 08/22/2010 COLONOSCOPY 2005 union resurfacing 07/14/2008 partial right shoulder replacement EGD W/EUS AND FNA/BX 01/28/2020 fna suggests a mucinous cystic neoplasm, cea elevated, hiatal hernia, fundic gland polyps, surgery consult GASTROTOMY W/SUTURE REPAIR BLEEDING ULCER 12/2022 PAST SURGICAL HISTORY OF 1993 right colectomy PAST SURGICAL HISTORY OF bilateral hips PAST SURGICAL HISTORY OF 05/2011 Repair of middle right trigger finger PAST SURGICAL HISTORY OF left thumb repair PAST SURGICAL HISTORY OF 04/23/2013 Left hip surgery SKIN BX, 1 LESION Skin biopsy lichen schlorsis FAMILY HISTORY Problem Relation Age of Onset Osteoporosis Mother Diabetes Father Coronary Artery Disease Father Diabetes Brother Social History Tobacco Use Smoking status: Never Smokeless tobacco: Never Vaping Use Vaping status: Never Used Substance Use Topics Alcohol use: No Drug use: No Current Outpatient Medications Medication Sig inulin (FIBER GUMMIES ORAL) Take by mouth. hydroxyurea (HYDREA) 500 mg capsule Take 1 capsule by mouth once daily. multivitamin/iron/folic acid (CENTRUM WOMEN ORAL) Take 1 tablet by mouth once daily. bevacizumab ophthalmic (AVASTIN) 1.25 mg/0.05 mL syringe [...] in each nostril twice daily as needed. No current facility-administered medications for this visit. ALLERGIES Allergen Reactions Ciprofloxacin Rash Itching and rash Amoxicillin GI Upset Biaxin [Clarithromy* GI Upset Atorvastatin Myalgia Sodium Pentathal [T* GI Upset Heavy vomiting REVIEW OF SYSTEMS: ROS PHYSICAL EXAM: BP 122/74 Pulse 90 Ht 4' 11 (1.50m) Wt 124 lb (56.2kg) BMI 25.03 kg/(m^2). Last 2 Encounter Wt Readings: Date: Wt: 08/11/2024 56.2 kg (124 lb) 05/19/2024 56 kg (123 lb 7.3 oz) Physical Exam Vitals reviewed. Constitutional: General: She is not in acute distress. Appearance: Normal appearance. She is not ill-appearing. Abdominal: General: Abdomen is flat. There is no distension. Palpations: Abdomen is soft. There is no mass. Tenderness: There is no abdominal tenderness. Hernia: No hernia is present. Neurological: Mental Status: She is alert. Psychiatric: Mood and Affect: Mood normal. Behavior: Behavior normal. Thought Content: Thought content normal. DATA: Diagnostic tests reviewed for today's visit: Most recent labs Most recent imaging Pathology report reviewed Plan Assessment and Plan: Encounter Diagnosis ICD-10-CM 1. Pancreas cyst K86.2 (K86.2) Pancreas cyst (primary encounter diagnosis) Comment: She has a very large cyst in the head of her pancreas. This is approximately 11 cm in diameter She is s/p EGD with EUS and aspiration of the cyst on 07/25/2024. By EUS this appears to be a large but simple, benign cyst. This seems consistent with a benign mucinous cyst. I was hoping that aspiration would resolve her upper GI symptoms but it did not appear to have any significant effect. She also has no evidence of any complications. I discussed management options at this point- This includes continued observation with management of her symptoms-primarily for GERD and constipation vs endoscopic drainage with a stent to more definitively drain it. I do not think there is anything which would merit surgery at this point. Plan: Will continue with symptomatic management for now At some point I would like to obtain another CT scan to reimage the cyst If she would like to try and drain this more definitively she will call and we can set this up. The encounter diagnosis was Pancreas cyst. (K86.2) Pancreas cyst (primary encounter diagnosis) A total of 30 minutes was spent in direct patient contact. Greater than 50% of the direct patient contact time was spent in counseling or coordination of care. Please Note: This office note has been created using Simpler, a speech recognition software program, and may contain errors including punctuation, grammar, spelling, gender, and inappropriate words or phrases that pertain to the sytem. [place] Telephone encounter Note * Telephone Encounter - Miranda Aguilera - 05/23/2024 11:35 AM EST Pt is wondering is her cyst can burst if she goes to a chiropractor? Per Dr. Roblero it would be very unlikely. Spoke to pt, she understands. Miranda Aguilera May 23, 2024 11:36 AM [place]11-22-2024 Miscellaneous Notes* Telephone Encounter - Miranda Aguilera - 05/23/2024 11:35 AM EST Pt is wondering is her cyst can burst if she goes to a chiropractor? Per Dr. Roblero it would be very unlikely. Spoke to pt, she understands. Miranda Aguilera May 23, 2024 11:36 AM documented in this encounterCent[place]11-18-2024 NoteHNO ID: [id number] Author: Sd ROBLERO MD Service: ? Author Type: Physician Type: Progress Notes Filed: 05/19/2024 12:11 Note Text: Keith Roblero MD General Surgery [address] [place] [address], [address] [place] [address] Patient referred by: No referring provider defined for this encounter. MAYDA Hudson is a 88 year old White female who presents for evaluation and management of a large pancreatic cyst. Has been known for several years but has increased in size since 2019. At that time she had a fairly large cyst in the head of the pancreas-it measured about 8 cm in size. There were no solid nodules or other features concerning for malignancy. She did undergo an EUS and FNA in December 2019. CEA level in the fluid was 937. 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 Her most recent CT scan shows it has increased in size to 11 cm. She does have some abdominal symptoms which prompted her recent scan. She describes fullness and bloating. She feels constipated. She does take some stool softener to try and help with this but this does not seem to improve her symptoms. She does not have epigastric pain, nausea or vomiting. Her weight is stable. She does not describe any back pain or jaundice. She did have a history of bleeding ulcers which were NSAID related. Recent problems with this She also describes lower abdominal numbness skin and some numbness in her right lower leg. Feels that this is worse over the last few months. Her previous surgical history includes a cholecystectomy and a right colectomy done for a polyp. She does have an umbilical hernia which is reducible SUBJECTIVE Review of Systems Constitutional: Negative. HENT: Negative. Eyes: Negative. Respiratory: Negative. Cardiovascular: Negative. Gastrointestinal: See HPI Genitourinary: Negative. Musculoskeletal: Negative. Skin: Negative. Neurological: See HPI Endo/Heme/Allergies: Negative. Psychiatric/Behavioral: Negative. 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 Reflux PAST SURGICAL HISTORY Procedure Laterality Date BREAST BIOPSY not sure which side, negative CHOLECYSTECTOMY 08/22/2010 COLONOSCOPY 2005 union resurfacing 07/14/2008 partial right shoulder replacement EGD W/EUS AND FNA/BX 01/28/2020 fna suggests a mucinous cystic neoplasm, cea elevated, hiatal hernia, fundic gland polyps, surgery consult GASTROTOMY W/SUTURE REPAIR BLEEDING ULCER 12/2022 PAST SURGICAL HISTORY OF 1993 right colectomy PAST SURGICAL HISTORY OF bilateral hips PAST SURGICAL HISTORY OF 05/2011 Repair of middle right trigger finger PAST SURGICAL HISTORY OF left thumb repair PAST SURGICAL HISTORY OF 04/23/2013 Left hip surgery SKIN BX, 1 LESION Skin biopsy lichen schlorsis Social History Tobacco Use Smoking status: Never Smokeless tobacco: Never Vaping Use Vaping status: Never Used Substance Use Topics Alcohol use: No Drug use: No FAMILY HISTORY Problem Relation Age of Onset Osteoporosis Mother Diabetes Father Coronary Artery Disease Father Diabetes Brother ALLERGIES Allergen Reactions Ciprofloxacin Rash Itching and rash Amoxicillin GI Upset Biaxin [Clarithromy* GI Upset Atorvastatin Myalgia Sodium Pentathal [T* GI Upset Heavy vomiting Current Outpatient Medications Medication Sig inulin (FIBER GUMMIES ORAL) Take by mouth. hydroxyurea (HYDREA) 500 mg capsule Take 1 capsule by mouth once daily. multivitamin/iron/folic acid (CENTRUM WOMEN ORAL) Take 1 tablet by mouth once daily. bevacizumab ophthalmic (AVASTIN) 1.25 mg/0.05 mL syringe [...] B SULFATE (POLYSPORIN TOPICAL) Apply to affected area (more content not included)...[facility]11-18-2024 History of Present illness Narrative* Sd Roblero MD - 05/19/2024 11:55 AM EST Images from the original note were not included. Keith Roblero MD General Surgery [address] [place] [address], [address] [place] [address] Patient referred by: No referring provider defined for this encounter. 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 Has been known for several years but has increased in size since 2019. At that time she had a fairly large cyst in the head of the pancreas-it measured about 8 cm in size. There were no solid nodules or other features concerning for malignancy. She did undergo an EUS and FNA in December 2019. CEA level in the fluid was 937. 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 Her most recent CT scan shows it has increased in size to 11 cm. She does have some abdominal symptoms which prompted her recent scan. She describes fullness and bloating. She feels constipated. She does take some stool softener to try and help with this but this does not seem to improve her symptoms. She does not have epigastric pain, nausea or vomiting. Her weight is stable. She does not describe any back pain or jaundice. She did have a history of bleeding ulcers which were NSAID related. Recent problems with this She also describes lower abdominal numbness skin and some numbness in her right lower leg. Feels that this is worse over the last few months. Her previous surgical history includes a cholecystectomy and a right colectomy done for a polyp. She does have an umbilical hernia which is reducible SUBJECTIVE Review of Systems Constitutional: Negative. HENT: Negative. Eyes: Negative. Respiratory: Negative. Cardiovascular: Negative. Gastrointestinal: See HPI Genitourinary: Negative. Musculoskeletal: Negative. Skin: Negative. Neurological: See HPI Endo/Heme/Allergies: Negative. Psychiatric/Behavioral: Negative. 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 Reflux PAST SURGICAL HISTORY Procedure Laterality Date BREAST BIOPSY not sure which side, negative CHOLECYSTECTOMY 08/22/2010 COLONOSCOPY 2005 union resurfacing 07/14/2008 partial right shoulder replacement EGD W/EUS AND FNA/BX 01/28/2020 fna suggests a mucinous cystic neoplasm, cea elevated, hiatal hernia, fundic gland polyps, surgery consult GASTROTOMY W/SUTURE REPAIR BLEEDING ULCER 12/2022 PAST SURGICAL HISTORY OF 1993 right colectomy PAST SURGICAL HISTORY OF bilateral hips PAST SURGICAL HISTORY OF 05/2011 Repair of middle right trigger finger PAST SURGICAL HISTORY OF left thumb repair PAST SURGICAL HISTORY OF 04/23/2013 Left hip surgery SKIN BX, 1 LESION Skin biopsy lichen schlorsis Social History Tobacco Use Smoking status: Never Smokeless tobacco: Never Vaping Use Vaping status: Never Used Substance Use Topics Alcohol use: No Drug use: No FAMILY HISTORY Problem Relation Age of Onset Osteoporosis Mother Diabetes Father Coronary Artery Disease Father Diabetes Brother ALLERGIES Allergen Reactions Ciprofloxacin Rash Itching and rash Amoxicillin GI Upset Biaxin [Clarithromy* GI Upset Atorvastatin Myalgia Sodium Pentathal [T* GI Upset Heavy vomiting Current Outpatient Medications Medication Sig inulin (FIBER GUMMIES ORAL) Take by mouth. hydroxyurea (HYDREA) 500 mg capsule Take 1 capsule by mouth once daily. multivitamin/iron/folic acid (CENTRUM WOMEN ORAL) Take 1 tablet by mouth once daily. bevacizumab ophthalmic (AVASTIN) 1.25 mg/0.05 mL syringe [...] in each nostril twice daily as needed. No current facility-administered medications for this visit. OBJECTIVE BP 123/69 Pulse 76 Ht 149.9 cm (4' 11) Wt 56 kg (123 lb 7.3 oz) BMI 24.94 kg/m BMI 24.94 kg/(m^2) Physical Exam Vitals reviewed. Constitutional: General: She is not in acute distress. Appearance: Normal appearance. She is normal weight. She is not ill-appearing. HENT: Head: Normocephalic. Eyes: General: No scleral icterus. Cardiovascular: Rate and Rhythm: Normal rate and regular rhythm. Heart sounds: Normal heart sounds. Pulmonary: Breath sounds: Normal breath sounds. Abdominal: General: Abdomen is flat. There is no distension. Palpations: Abdomen is soft. There is no mass. Tenderness: There is no abdominal tenderness. Hernia: A hernia is present. Comments: She has a 2 cm umbilical bulge which is easily reducible and nontender She has a very long but well-healed right upper quadrant subcostal scar Skin: General: Skin is warm and dry. Neurological: General: No focal deficit present. Mental Status: She is alert. Psychiatric: Mood and Affect: Mood normal. Behavior: Behavior normal. Thought Content: Thought content normal. Hemoglobin (g/dL) Date Value 08/23/2022 13.9 03/16/2021 14.0 Hematocrit (%) Date Value 08/23/2022 42.2 03/16/2021 42.0 WBC (k/uL) Date Value 08/23/2022 4.81 03/16/2021 5.28 Platelet Count (k/uL) Date Value 08/23/2022 511 03/16/2021 413 Creatinine Date Value Ref Range Status 11/06/2022 0.60 0.58 - 0.96 mg/dL Final AST Date Value Ref Range Status 11/06/2022 18 13 - 35 U/L Final ALT Date Value Ref Range Status 11/06/2022 18 7 - 38 U/L Final Bilirubin, Total (mg/dL) Date Value 11/06/2022 0.4 Bilirubin, Conjug (mg/dL) Date Value 03/21/2017 <0.2 WBC (k/uL) Date Value 08/23/2022 4.81 RBC (m/uL) Date Value 08/23/2022 4.26 %DIG,%DBS DATA: Diagnostic tests reviewed for today's visit: Most recent labs Most recent imaging Most recent EGD_EUS Pathology report reviewed Plan Assessment and Plan: Encounter Diagnosis ICD-10-CM 1. Pancreas cyst K86.2 (K86.2) Pancreas cyst (primary encounter diagnosis) Comment: She has an 11 x 8 cm cystic lesion in the head of the pancreas. It has increased in size from 2019. Although very large this seems to be consistent with a benign mucinous cystic neoplasm. He does have abdominal symptoms but these are not obviously related to the cyst- but at the same time I cannot totally rule out some of her symptoms due to compression and partial obstructive of the antrum- duodenum. I discussed management options with her. This includes observation, attempts to improve her constipation symptoms with laxatives or stool softeners, Repeat EUS with aspiration of the cyst, and endoscopic drainage with some form of a stent. Given her age I am hesitant to do anything risky without a clear benefit Plan: Will add some laxatives to improve her constipation Set up EGD and EUS for aspiration of the cyst. This may not result in long-term resolution but should allow us to differentiate whether this is symptomatic or not and reevaluate for malignancy The encounter diagnosis was Pancreas cyst. (K86.2) Pancreas cyst (primary encounter diagnosis) Follow up: No follow-ups on file. A total of 30 minutes was spent in direct patient contact. Greater than 50% of the direct patient contact time was spent in counseling or coordination of care. Please Note: This office note has been created using Simpler, a speech recognition software program, and may contain errors including punctuation, grammar, spelling, gender, and inappropriate words or phrases that pertain to the sytem. documented in this encounterCenterville03-18-2024 Miscellaneous Notes* Telephone Encounter - Elle Moody - 09/17/2023 10:10 AM EDT Patient Kellie called in today to cancel her appointment that was scheduled for 09/19/23. She stated that Dr.Mark Vanegas is following her for all her care. He has been watching her lab work and monitoring her hydrea dosage. Patient also asked for a few specific records that she has been trying to get from main medical records but has been unable to do. I told her I would get those things ready and she could pick them them up at our [facility] in [place]. documented in this encounterCenterville07-15-2023 Discharge summary Author Homer Zelaya [facility] January 13, 2023 9:47am Note Date/Time January 13, 2023 9:47 am [facility] Medical Records Department [address] [place] [address] Discharge Summary 01/13/23 0946 MR#: [id number] Acct: [id number] Name: KELLIE HUDSON Rep #:[id number] : 1935 87 From: Homer Zelaya MD PCP: Dr. Cody Vanegas, DO Status:ADM IN [facility] Prov[facility] Date of Admission: 01/08/23 Date of Discharge: 01/13/23 Primary Care Physician: Dr. Cody Vanegas, DO Consultations 01/08/23 02:02 Consult: Gastroenterology Routine Consulting Provider: Nagi Larios Reason for Consult: abla EMERGENT Consult: No MD Notified: Yes Date Notified: 01/08/23 Time Notified: 06:53 Method of Notification: Text Reason For Visit: ABLA Diagnosis Discharge Diagnosis (1) Acute GI bleeding: Status: Acute Code(s): K92.2 - Gastrointestinal hemorrhage, unspecified (2) Right hip pain: Status: Acute Code(s): M25.551 - Pain in right hip Plan Patient is an 87-year-old lady who presented with coffee-ground emesis with bloody stools 1. Acute blood loss anemia ? From upper GI bleed from duodenal ulcer patient underwent upper endoscopy on 01/08/[address] Larios was found to 1 oozing duodenal ulcer with a visible vessel which was injected. Started on PPI ? 01/11/2023;Patient hemoglobin did drop to 10.5. Seen by GI and the day prior plan is for patient to undergo repeat EGD. -01/12/2023;Patient underwent repeat EGD given her hemoglobin was continue to trend with some passage of clots per rectum. EGD did show Normal esophagus. Medium- sized hiatal hernia. One oozing duodenal ulcer with pigmented material. Injected. One non-obstructing oozing duodenal ulcer with a visible vessel. NSAID induced etiology. There is no evidence of perforation. Treated with argon plasma coagulation 2. Gastric stenosis ? Status post dilatation on 01/08/2023 3. COPD ? Currently not in exacerbation aerosol treatment as needed 4. Dyslipidemia As per history managed with only diet 5. Idiopathic thrombocytopenia ? Patient is on hydroxyurea discontinued 6. Recent closed sacral fracture ? Requested for PT OT as tolerated as well as pain management consult has been placed to case management to assist with disposition 7. DVT prophylaxis Bilateral SCDs Time spent in the patient's overall evaluation,decision-making process, review of diagnostic data, adjustment of management, discussion with other providers, nursing nursing and ancillary staff involved in patient's care documentation, 35Minutes Medications at Discharge Home Medications albuterol sulfate 90 mcg/actuation aerosol inhaler (Ventolin HFA) 1 puff inhalation Q6H PRN Sob &/Or Wheezing 02/26/18 calcium phosphate 250 mg-vit D3 12.5 mcg (500 unit) chewable tablet (Citracal-Y5Vfmhfse) 1 tab PO DAILY 02/26/18 cholecalciferol (vitamin D3) 25 mcg (1,000 unit) capsule 1,000 unit PO DAILY 02/26/18 docusate sodium 100 mg capsule (Stool Softener) 100 mg PO DAILY 02/26/18 fluticasone propionate 50 mcg/actuation nasal spray,suspension (Flonase Allergy Relief) 1 spray intranasal DAILY PRN Allergies 02/26/18 guaifenesin 600 mg tablet, extended release 12 hr (Mucinex) 600 mg PO Q12H PRN Cough 02/26/18 magnesium oxide 500 mg capsule 250 mg PO BID 02/26/18 zoledronic acid 5 mg/100 mL in mannitol 5 %-water intravenous piggybck (Reclast)1 dose .Route .Q2YEAR 02/26/18 coenzyme Q10 100 mg capsule (Co Q-10) 200 mg PO BID 02/27/18 metoprolol tartrate 25 mg tablet 12.5 mg PO DAILY PRN heart flutter 02/20/19 simethicone 180 mg capsule (Gas-X Ultra-Strength) 180 mg PO BID PRN Gastric Reflux 02/26/20 hydroxyurea 500 mg capsule 500 mg PO DAILY 09/14/22 cetirizine 10 mg tablet (Zyrtec) 10 mg PO DAILY ALLERGIES 12/08/22 acetaminophen 500 mg tablet 1,000 mg (2 x 500 mg) PO Q8 6 days #36 tabs 12/09/22 meclizine 25 mg chewable tablet (Antivert) 25 mg PO DAILY PRN PRN dizziness 01/07/23 multivitamin-ferrous fumarate-folic acid 18 mg-400 mcg tablet (Centrum Women) 1 tab PO DAILY 01/07/23 vitamin A 2,500 unit-vit C 100 mg-biotin 2,500 ign-ncif-ibajmp capsule (Rxkj-Qwpw-Qyls (vit A,B-jyyppj-Nt-Cu)) cap PO BID 01/07/23 hydrocodone-acetaminophen 5-325mg 5mg-325mg 1 tab PO BID PRN pain 3 days #6 tabs01/13/23 misoprostol 200 mcg tablet 200 mcg PO 4X/DAY #0 tabs 01/13/23 pantoprazole 40 mg tablet,delayed release (Protonix) 40 mg PO BID 8 weeks #112 tabs 01/13/23 sucralfate 1 gram tablet 1 g PO 0700,1100,1600 #0 tabs 01/13/23 Hospital Course Summary of Care Provided Minutes Spent on Discharge: 35 Physical Exam Narrative GENERAL: cooperative HEENT: Atraumatic; normocephalic EYES; Anicteric, Normal Conjunctiva NECK; supple, normal thyroid, RESPIRATORY: Diminished to auscultation CARDIOVASCULAR: Regular S1 S2, GI: soft, normoactive bowel sounds, : No Renal angle tenderness; EXTREMITIES: No edema, no clubbing, MUSCULOSKELETAL: no muscle wasting NEURO: Awake; no lateralizing signs. SKIN: No Rash PSYCH; Flat affect Weight / BMI Weight Weight: 54.4 kg Body Mass Index (BMI) 23.4 ABG / Lab / Microbiology Data 01/13/23 02:34 01/13/23 02:34 Laboratory: Laboratory Results - last 24 hr 01/13/23 02:34: WBC 7.7, RBC 3.39 L, Hgb 11.0 L, Hct 32.4 L, MCV 95.6, MCH 32.4 H, MCHC 34.0, RDW Std Deviation 62.3 H, RDW Coeff of Cyril 18.2 H, Plt Count 344, MPV 8.5, Immature Gran % (Auto) 2.100 H, Neut % (Auto) 68.0, Lymph % (Auto) 15.5L, [place] % (Auto) 12.8 H, Eos % (Auto) 1.2, Baso % (Auto) 0.4, Absolute Neuts (auto) 5.2, Absolute Lymphs (auto) 1.19, Nucleated RBC % 0, Sodium 134 L, Potassium 3.3 L, Chloride 103, Carbon Dioxide 23.0, Anion Gap 8, BUN 5 L, Creatinine 0.47 L, Estim Creat Clear Calc 28.47, Est GFR (MDRD) Af Amer 162, EstGFR (MDRD) Non-Af 134, BUN/Creatinine Ratio 10.7, Glucose 130 H, Calcium 8.1 L, Procalcitonin 0.05 01/13/23 04:30: Urine Color Yellow, Urine Clarity Clear, Urine pH 7.0, Ur Specific [place] 1.005, Urine Protein Negative, Urine Glucose (UA) Normal, UrineKetones Negative, Urine Occult Blood Negative, Urine Nitrite Negative, Urine Bilirubin Negative, Urine Urobilinogen Normal, Ur Leukocyte Esterase Negative, Urine RBC ORACLE R12 DEVELOPER, Urine WBC ORACLE R12 DEVELOPER, Ur Squamous Epith Cells 0-5 SEEN, Urine Bacteria 1+,Urine Mucus 0 SEEN Microbiology: Microbiology 01/10/23 14:25 Nasal Secretion SARS-CoV-2 Antigen (Rapid) - Final 01/07/23 22:50 Stool Stool Occult Blood (MAURICIO) - Final Occult Blood Positive Radiography Diagnostic Testing: Radiology Impression Chest X-Ray 01/13/23 00:41 IMPRESSION: Chest with no acute disease. Electronically Signed: Thomas Mcgrath MD at 2:24 EDT , D/C Instructions Discharge Diet: No restrictions Discharge Activity: Return to Normal Activity Call your doctor if you observe: Fever of 101 or Higher, Shortness of breath, Fainting spells and Chest pain Meaningful Use Info Meaningful Use Diagnoses (Choose all that apply): None applicable Discharge Plan Admission Admit Date/Time: 01/08/23 01:07 Attending Provider: Homer Zelaya Primary Care Provider: Cody Vanegas Consulting Providers: Odilon Parra; Nagi Larios; Cody Crandall Discharge Orders/Prescriptions Prescriptions: New sucralfate 1 gram Tablet 1 g PO 0700,1100,1600 Qty: 0 0RF misoprostol 200 mcg Tablet 200 mcg PO 4X/DAY Qty: 0 0RF pantoprazole [Protonix] 40 mg tablet,delayed release (DR/EC) 40 mg PO BID 56 Days Qty: 112 0RF hydrocodone-acetaminophen 5-325 mg tablet 1 tab PO BID PRN (Reason: pain) 3 Days Qty: 6 0RF Continued calcium phosphate-vitamin D3 [Citracal-D3 Gummies] 250 mg calcium- 500 unit tablet,chewable 1 tab PO DAILY fluticasone propionate [Flonase Allergy Relief] 50 mcg/actuation spray,suspension 1 spray INTRANASAL DAILY PRN (Reason: Allergies) magnesium oxide 500 mg capsule 250 mg PO BID guaifenesin [Mucinex] 600 mg tablet extended release 12hr 600 mg PO Q12H PRN (Reason: Cough) zoledronic thdz-jildlmfy-vibej [Reclast] 5 mg/100 mL piggyback 1 dose .Route .Q2YEAR Patient Comments: .Qyear Rx Instructions: .Qyear docusate sodium [Stool Softener] 100 mg capsule 100 mg PO DAILY albuterol sulfate [Ventolin HFA] 90 mcg/actuation HFA aerosol inhaler 1 puff INHALATION Q6H PRN (Reason: Sob &/Or Wheezing) cholecalciferol (vitamin D3) 1,000 unit capsule 1,000 unit PO DAILY coenzyme Q10 [Co Q-10] 100 mg capsule 200 mg PO BID hydroxyurea 500 mg capsule 500 mg PO DAILY metoprolol tartrate 25 mg tablet 12.5 mg PO DAILY PRN (Reason: heart flutter) Hold Instructions: Ordered simethicone [Gas-X Ultra-Strength] 180 mg capsule 180 mg PO BID PRN (Reason: Gastric Reflux) cetirizine [Zyrtec] 10 mg Tablet 10 mg PO DAILY acetaminophen 500 mg Tablet 1,000 mg PO Q8 6 Days Qty: 36 0RF Centrum Women 18-400 mg-mcg tablet 1 tab PO DAILY Aqpl-Zfcf-Httj(vit A,C-biotin) 2,500 unit-100 mg-2,500 mcg capsule PO BID Hold Instructions: Ordered meclizine [Antivert] 25 mg tablet,chewable 25 mg PO DAILY PRN PRN (Reason: dizziness) Discontinued ibuprofen 200 mg Tablet 400 mg PO Q6H PRN (Reason: Pain) hydrocodone-acetaminophen 5-325 mg Tablet 1 tab PO Q12H PRN PRN (Reason: PAIN 6-10) Referrals / Follow Up: Cody Vanegas DO [Primary Care Provider] - Within 1 Week Disposition Disposition (needs filled in before D/C Order can be placed): [facility] Charges/Coding Visit Charges Inpatient E&M: 30511 Disch Hosp >30min 01/13/23 0947 <Electronically signed by Homer Zelaya MD> Cosigner Signature (if applicable): CC: Dr. Homer Zelaya MD; Dr. Cody Vanegas DO~ Signed [facility] Work Phone: 1(410) 406-671407-15-2023 Discharge summary Author Homer Zelaya [facility] January 13, 2023 9:46am Note Date/Time January 13, 2023 9:32 am [facility] Medical Records Department [address] [place] [address] Transfer to Extended Care MR#: [id number] Acct: [id number] Name: KELLIE HUDSON Rep #:[id number] : 1935 87 From: Homer Zelaya MD PCP: Dr. Cody Vanegas, DO Status:ADM IN Certification of patient admission REQUIRED AT TIME OF ADMISSION. I CERTIFY THAT POST-HOSPITAL ECF SERVICES ARE REQUIRED TO BE GIVEN ON AN IN-PATIENT BASIS BECAUSE OF THE ABOVE NAMED PATIENT'S NEED FOR HALF-WAY CARE ON A CONTINUING BASIS FOR THE CONDITION(S) FOR WHICH HE/SHE WAS RECEIVING IN-PATIENT HOSPITAL SERVICES PRIOR TO HIS/HER TRANSFER TO THE F. 01/13/23 0946<Electronically signed by Homer Zelaya MD> Diet Diet Order/Speech Therapy: 01/13/23 09:08 Diet: Regular - General Type of Dietary Supplement:: Ensure Clear Is pt able to select menu?: Yes Diet Comments: 120mL ensure clear TID w/ meals Routine Orders/Code Status Code Status: DNRCC-A Problem/Diagnosis (1) Acute GI bleeding: Status: Acute Code(s): K92.2 - Gastrointestinal hemorrhage, unspecified (2) Right hip pain: Status: Acute Code(s): M25.551 - Pain in right hip Plan Patient is an 87-year-old lady who presented with coffee-ground emesis with bloody stools 1. Acute blood loss anemia ? From upper GI bleed from duodenal ulcer patient underwent upper endoscopy on 01/08/2023 by Friend was found to 1 oozing duodenal ulcer with a visible vessel which was injected. Started on PPI ? 01/11/2023;Patient hemoglobin did drop to 10.5. Seen by GI and the day prior plan is for patient to undergo repeat EGD. -01/12/2023;Patient underwent repeat EGD given her hemoglobin was continue to trend with some passage of clots per rectum. EGD did show Normal esophagus. Medium- sized hiatal hernia. One oozing duodenal ulcer with pigmented material. Injected. One non-obstructing oozing duodenal ulcer with a visible vessel. NSAID induced etiology. There is no evidence of perforation. Treated with argon plasma coagulation 2. Gastric stenosis ? Status post dilatation on 01/08/2023 3. COPD ? Currently not in exacerbation aerosol treatment as needed 4. Dyslipidemia As per history managed with only diet 5. Idiopathic thrombocytopenia ? Patient is on hydroxyurea discontinued 6. Recent closed sacral fracture ? Requested for PT OT as tolerated as well as pain management consult has been placed to case management to assist with disposition 7. DVT prophylaxis Bilateral SCDs Time spent in the patient's overall evaluation,decision-making process, review of diagnostic data, adjustment of management, discussion with other providers, nursing nursing and ancillary staff involved in patient's care documentation, 35Minutes Allergies/Procedures Done in Hospital Allergies amoxicillin Adverse Reaction (Verified 12/08/22 12:45) Upset Stomach atorvastatin [From Lipitor] Adverse Reaction (Verified 12/08/22 12:45) myalgias ciprofloxacin [From Cipro] Adverse Reaction (Verified 12/08/22 12:45) Itching clarithromycin [From Biaxin] Adverse Reaction (Verified 12/08/22 12:45) Vomiting thiopental [From Pentothal] Adverse Reaction (Verified 12/08/22 12:45) Nausea Type of Care/Length of Stay Estimated LOS: Convalescent Care Less Than 30 days Type of Care Needed: Skilled Rehab Potential: Good Prognosis: Good Additional Orders/Day of Discharge Day of Discharge: 01/13/23 Dietary and Speech Recommendations Dietitian Recommendations/Changes: Recommend advance PO as tolerated to Transitional diet with goal of Regular diet. Offer ensure clear---will add 120mL/ ensure clear TID w/ meals as tolerated. Discharge Plan Admission Admit Date/Time: 01/08/23 01:07 Attending Provider: Homer Zelaya Primary Care Provider: Cody Vanegas Consulting Providers: Odilon Parra; Nagi Larios; Cody Crandall Discharge Orders/Prescriptions Prescriptions: New sucralfate 1 gram Tablet 1 g PO 0700,1100,1600 Qty: 0 0RF misoprostol 200 mcg Tablet 200 mcg PO 4X/DAY Qty: 0 0RF pantoprazole [Protonix] 40 mg tablet,delayed release (DR/EC) 40 mg PO BID 56 Days Qty: 112 0RF hydrocodone-acetaminophen 5-325 mg tablet 1 tab PO BID PRN (Reason: pain) 3 Days Qty: 6 0RF Continued calcium phosphate-vitamin D3 [Citracal-D3 Gummies] 250 mg calcium- 500 unit tablet,chewable 1 tab PO DAILY fluticasone propionate [Flonase Allergy Relief] 50 mcg/actuation spray,suspension 1 spray INTRANASAL DAILY PRN (Reason: Allergies) magnesium oxide 500 mg capsule 250 mg PO BID guaifenesin [Mucinex] 600 mg tablet extended release 12hr 600 mg PO Q12H PRN (Reason: Cough) zoledronic pvar-ujjlfzus-xnzsd [Reclast] 5 mg/100 mL piggyback 1 dose .Route .Q2YEAR Patient Comments: .Qyear Rx Instructions: .Qyear docusate sodium [Stool Softener] 100 mg capsule 100 mg PO DAILY albuterol sulfate [Ventolin HFA] 90 mcg/actuation HFA aerosol inhaler 1 puff INHALATION Q6H PRN (Reason: Sob &/Or Wheezing) cholecalciferol (vitamin D3) 1,000 unit capsule 1,000 unit PO DAILY coenzyme Q10 [Co Q-10] 100 mg capsule 200 mg PO BID hydroxyurea 500 mg capsule 500 mg PO DAILY metoprolol tartrate 25 mg tablet 12.5 mg PO DAILY PRN (Reason: heart flutter) Hold Instructions: Ordered simethicone [Gas-X Ultra-Strength] 180 mg capsule 180 mg PO BID PRN (Reason: Gastric Reflux) cetirizine [Zyrtec] 10 mg Tablet 10 mg PO DAILY acetaminophen 500 mg Tablet 1,000 mg PO Q8 6 Days Qty: 36 0RF Centrum Women 18-400 mg-mcg tablet 1 tab PO DAILY Hruq-Hxug-Dssu(vit A,C-biotin) 2,500 unit-100 mg-2,500 mcg capsule PO BID Hold Instructions: Ordered meclizine [Antivert] 25 mg tablet,chewable 25 mg PO DAILY PRN PRN (Reason: dizziness) Discontinued ibuprofen 200 mg Tablet 400 mg PO Q6H PRN (Reason: Pain) hydrocodone-acetaminophen 5-325 mg Tablet 1 tab PO Q12H PRN PRN (Reason: PAIN 6-10) Referrals / Follow Up: Cody Vanegas DO [Primary Care Provider] - Within 1 Week Disposition Disposition (needs filled in before D/C Order can be placed): [facility] 01/13/23 0946 <Electronically signed by Homer Zelaya MD> Cosigner Signature (if applicable): CC: Dr. Odilon Parra MD; Dr. Cody Vanegas, ; Dr. Cody Crandall DO; Nagi Larios, ~ [facility] Work Phone: 1(185) 640-113107-15-2023 Progress note Author Homer Zelaya [facility] January 13, 2023 9:28am Note Date/Time January 13, 2023 7:57 am [facility] Medical Records Department [address] [place] [address] Progress Note - Hospitalist 01/13/23755 MR#: [id number] Acct: [id number] Name: KELLIE HUDSON Rep #:[id number] : 1935 87 From: Homer Zelaya MD PCP: Dr. Cody Vanegas, Status:ADM IN Location: [place] [address] Reason for Visit Reason for Visit: Diagnoses Acute posthemorrhagic anemia (01/08/23) Thrombocytosis, unspecified (01/08/23) Gastrointestinal hemorrhage, unspecified (01/08/23) Unspecified fracture of sacrum, initial encounter for closed fracture (01/08/23) Subjective Subjective Patient seen hemoglobin remained stable plan is for patient to be assessed for possible discharge Objective Data Objective Data Vital Signs: Vital Signs Temp Pulse Resp BP Pulse Ox O2 Del Method O2 Flow Rate 98.3 F 86 15 133/64 H 99 Room Air 1 01/13/23 07:24 01/13/23 04:41 01/13/23 04:41 01/13/23 04:41 01/13/23 04:41 01/13/23 06:14 01/11/23 08:02 Oxygen Flow Rate (L/min) 1 Oxygen Delivery Method Room Air Weight: 54.4 kg Body Mass Index (BMI) 23.4 Intake & Output: Intake and Output for Last 24 Hours 01/11/23 01/12/23 01/13/23 23:59 23:59 23:59 Intake Total 1264.67 / 1264.67 952.17 / 952.17 Output Total 50 / 50 Balance 1264.67 / 1264.67 952.17 / 952.17 -50 / -50 Lab / Micro Data 01/13/23 02:34 01/13/23 02:34 Labs: Laboratory Results - last 24 hr 01/13/23 02:34: WBC 7.7, RBC 3.39 L, Hgb 11.0 L, Hct 32.4 L, MCV 95.6, MCH 32.4 H, MCHC 34.0, RDW Std Deviation 62.3 H, RDW Coeff of Cyril 18.2 H, Plt Count 344, MPV 8.5, Immature Gran % (Auto) 2.100 H, Neut % (Auto) 68.0, Lymph % (Auto) 15.5L, [place] % (Auto) 12.8 H, Eos % (Auto) 1.2, Baso % (Auto) 0.4, Absolute Neuts (auto) 5.2, Absolute Lymphs (auto) 1.19, Nucleated RBC % 0, Sodium 134 L, Potassium 3.3 L, Chloride 103, Carbon Dioxide 23.0, Anion Gap 8, BUN 5 L, Creatinine 0.47 L, Estim Creat Clear Calc 28.47, Est GFR (MDRD) Af Amer 162, EstGFR (MDRD) Non-Af 134, BUN/Creatinine Ratio 10.7, Glucose 130 H, Calcium 8.1 L, Procalcitonin 0.05 01/13/23 04:30: Urine Color Yellow, Urine Clarity Clear, Urine pH 7.0, Ur Specific [place] 1.005, Urine Protein Negative, Urine Glucose (UA) Normal, UrineKetones Negative, Urine Occult Blood Negative, Urine Nitrite Negative, Urine Bilirubin Negative, Urine Urobilinogen Normal, Ur Leukocyte Esterase Negative, Urine RBC ORACLE R12 DEVELOPER, Urine WBC ORACLE R12 DEVELOPER, Ur Squamous Epith Cells 0-5 SEEN, Urine Bacteria 1+,Urine Mucus 0 SEEN Micro: Microbiology 01/10/23 14:25 Nasal Secretion SARS-CoV-2 Antigen (Rapid) - Final 01/07/23 22:50 Stool Stool Occult Blood (MAURICIO) - Final Occult Blood Positive Radiography Diagnostic Testing: Radiology Impression Chest X-Ray 01/13/23 00:41 IMPRESSION: Chest with no acute disease. Electronically Signed: Thomas Mcgrath MD at 2:24 EDT , Physical Exam Narrative GENERAL: cooperative HEENT: Atraumatic; normocephalic EYES; Anicteric, Normal Conjunctiva NECK; supple, normal thyroid, RESPIRATORY: Diminished to auscultation CARDIOVASCULAR: Regular S1 S2, GI: soft, normoactive bowel sounds, : No Renal angle tenderness; EXTREMITIES: No edema, no clubbing, MUSCULOSKELETAL: no muscle wasting NEURO: Awake; no lateralizing signs. SKIN: No Rash PSYCH; Flat affect Assessment & Plan Assessment/Plan (1) Acute GI bleeding: PLAN: Plan Patient is an 87-year-old lady who presented with coffee-ground emesis with bloody stools 1. Acute blood loss anemia ? From upper GI bleed from duodenal ulcer patient underwent upper endoscopy on 01/08/2023 by . Friend was found to 1 oozing duodenal ulcer with a visible vessel which was injected. Started on PPI ? 01/11/2023;Patient hemoglobin did drop to 10.5. Seen by GI and the day prior plan is for patient to undergo repeat EGD. -01/12/2023;Patient underwent repeat EGD given her hemoglobin was continue to trend with some passage of clots per rectum. EGD did show Normal esophagus. Medium- sized hiatal hernia. One oozing duodenal ulcer with pigmented material. Injected. One non-obstructing oozing duodenal ulcer with a visible vessel. NSAID induced etiology. There is no evidence of perforation. Treated with argon plasma coagulation 2. Gastric stenosis ? Status post dilatation on 01/08/2023 3. COPD ? Currently not in exacerbation aerosol treatment as needed 4. Dyslipidemia As per history managed with only diet 5. Idiopathic thrombocytopenia ? Patient is on hydroxyurea discontinued 6. Recent closed sacral fracture ? Requested for PT OT as tolerated as well as pain management consult has been placed to case management to assist with disposition 7. DVT prophylaxis Bilateral SCDs Time spent in the patient's overall evaluation,decision-making process, review of diagnostic data, adjustment of management, discussion with other providers, nursing nursing and ancillary staff involved in patient's care documentation, 35Minutes Charges/Coding Visit Charges Inpatient E&M: 25500 Subs Hosp L2 01/13/23 0992 <Electronically signed by Homer Zelaya MD> Cosigner Signature (if applicable): CC: ~ Signed [facility] Work Phone: 1(950) 728-238107-15-2023 Progress note Author China Walton [facility] January 13, 2023 12:43am Note Date/Time January 13, 2023 12:4 3am [facility] Medical Records Department [address] [place] [address] Progress Note - Hospitalist 01/13/23 0042 MR#: [id number] Acct: [id number] Name: KELLIE HUDSON Marin Rep #:[id number] : 1935 87 From: China Walton MD PCP: Dr. Cody Vanegas, DO Status:ADM IN Location: [place] [address] Hospitalist Note Patient with new onset fever. Will obtain CXR as last performed 01/07/23 and UA, add tylenol. CTA A/P with no obvious infection acute findings upon admission. 01/13/2342 <Electronically signed by China Walton MD> Cosigner Signature (if applicable): CC: ~ Signed [facility] Work Phone: 1(141) 303-197107-14-2023 Progress note Author Nagi Friend [facility] January 12, 2023 3:24pm Note Date/Time January 12, 2023 3:24 pm [facility] Medical Records Department [address] [place] [address] Progress Note - GI 01/12/23 1522 MR#: [id number] Acct: [id number] Name: KELLIE HUDSON Marin Rep #:[id number] : 1935 87 From: Nagi Larios DO PCP: Dr. Cody Vanegas, DO Status:ADM IN Location: [place] [address] Subjective Subjective Patient is doing well today after undergoing EGD yesterday for recurrent bleeding from duodenal ulcers. She has not seen any bleeding overnight. She denies any chest pain or shortness of breath. She states that she is starting to get hungry. Objective Data Objective Data Vital Signs: Vital Signs Temp Pulse Resp BP Pulse Ox O2 Del Method O2 Flow Rate 98.7 F 85 18 114/69 96 Room Air 1 01/12/23 15:05 01/12/23 15:05 01/12/23 15:05 01/12/23 15:05 01/12/23 15:05 01/12/23 15:05 01/11/23 08:02 Oxygen Flow Rate (L/min) 1 Oxygen Delivery Method Room Air Weight: 119 lb 14.903 oz Body Mass Index (BMI) 23.4 Intake & Output: Intake and Output for Last 24 Hours 01/10/23 01/11/23 01/12/23 23:59 23:59 23:59 Intake Total 931 / 1151 1264.67 / 1264.67 610 / 610 Output Total 50 / 50 Balance 881 / 1101 1264.67 / 1264.67 610 / 610 Lab / Micro Data 01/12/23 04:57 01/12/23 04:57 Labs: Laboratory Results - last 24 hr 01/12/23 04:57: WBC 7.2, RBC 3.34 L, Hgb 10.9 L, Hct 31.8 L, MCV 95.2, MCH 32.6 H, MCHC 34.3, RDW Std Deviation 61.9 H, RDW Coeff of Cyril 18.2 H, Plt Count 311, MPV 8.6, Immature Gran % (Auto) 1.100 H, Neut % (Auto) 65.9, Lymph % (Auto) 19.0, [place] % (Auto) 12.3 H, Eos % (Auto) 1.4, Baso % (Auto) 0.3, Absolute Neuts (auto) 4.8, Absolute Lymphs (auto) 1.37, Nucleated RBC % 0, Sodium 133 L, Potassium 3.3 L, Chloride 103, Carbon Dioxide 22.0, Anion Gap 8, BUN 6 L, Creatinine 0.43 L, Estim Creat Clear Calc 28.47, Est GFR (MDRD) Af Amer 180, EstGFR (MDRD) Non-Af 149, BUN/Creatinine Ratio 14.1, Glucose 127 H, Calcium 8.1 L Micro: Microbiology 01/10/23 14:25 Nasal Secretion SARS-CoV-2 Antigen (Rapid) - Final 01/07/23 22:50 Stool Stool Occult Blood (MAURICIO) - Final Occult Blood Positive Physical Exam Narrative GENERAL: cooperative HEENT: Atraumatic; normocephalic EYES; Anicteric, Normal Conjunctiva NECK; supple, normal thyroid, RESPIRATORY: Diminished to auscultation CARDIOVASCULAR: Regular S1 S2, GI: soft, normoactive bowel sounds, : No Renal angle tenderness; EXTREMITIES: No edema, no clubbing, MUSCULOSKELETAL: no muscle wasting NEURO: Awake; no lateralizing signs. SKIN: No Rash PSYCH; Flat affect Assessment & Plan Assessment/Plan (1) Acute GI bleeding: PLAN: She can have H&H's daily now. Her PPI can be 40 mg p.o. twice daily. Continue sulcrafate and misoprostol to enhance healing in the duodenum. (2) Acute blood loss anemia: PLAN: . Acute blood loss anemia secondary to bleeding gastric ulcer. She has ahistory of macrocytic anemia from unknown cause. Octreotide also is off. (3) Thrombocytosis: PLAN: Patient is on hydroxyurea and it does treat her thrombocytosis. I would hold that medicine as it may inhibit her healing Charges/Coding Visit Charges Inpatient E&M: 28491 [facility] Hosp 01/12/23 1524 <Electronically signed by Nagi Friend DO> Cosigner Signature (if applicable): CC: ~ Signed [facility] Work Phone: 1(238) 403-565007-14-2023 Progress note Author Homer Zelaya [facility] January 12, 2023 9:42am Note Date/Time January 12, 2023 7:56 am [facility] Medical Records Department [address] [place] [address] Progress Note - Hospitalist 01/12/23 0755 MR#: [id number] Acct: [id number] Name: KELLIE HUDSON Rep #:[id number] : 1935 87 From: Homer Zelaya MD PCP: Dr. Cody Vanegas DO Status:ADM IN Location: [address] 1 Reason for Visit Reason for Visit: Diagnoses Acute posthemorrhagic anemia (01/08/23) Thrombocytosis, unspecified (01/08/23) Gastrointestinal hemorrhage, unspecified (01/08/23) Unspecified fracture of sacrum, initial encounter for closed fracture (01/08/23) Subjective Subjective Patient underwent repeat EGD given her hemoglobin was continue to trend with some passage of clots per rectum. EGD did show Normal esophagus. Medium-sizedhiatal hernia. One oozing duodenal ulcer with pigmented material. Injected. One non-obstructing oozing duodenal ulcer with a visible vessel. NSAID inducedetiology. There is no evidence of perforation. Treated with argon plasma coagulation (APC). Objective Data Objective Data Vital Signs: Vital Signs Temp Pulse Resp BP Pulse Ox O2 Del Method O2 Flow Rate 98.1 F 89 18 135/69 H 96 Room Air 1 01/12/23 07:53 01/12/23 07:53 01/12/23 07:53 01/12/23 07:53 01/12/23 07:53 01/12/23 07:53 01/11/23 08:02 Oxygen Flow Rate (L/min) 1 Oxygen Delivery Method Room Air Weight: 54.4 kg Body Mass Index (BMI) 23.4 Intake & Output: Intake and Output for Last 24 Hours 01/10/23 01/11/23 01/12/23 23:59 23:59 23:59 Intake Total 931 / 1151 1264.67 / 1264.67 Output Total 50 / 50 Balance 881 / 1101 1264.67 / 1264.67 Lab / Micro Data 01/12/23 04:57 01/12/23 04:57 Labs: Laboratory Results - last 24 hr 01/12/23 04:57: WBC 7.2, RBC 3.34 L, Hgb 10.9 L, Hct 31.8 L, MCV 95.2, MCH 32.6 H, MCHC 34.3, RDW Std Deviation 61.9 H, RDW Coeff of Cyril 18.2 H, Plt Count 311, MPV 8.6, Immature Gran % (Auto) 1.100 H, Neut % (Auto) 65.9, Lymph % (Auto) 19.0, [place] % (Auto) 12.3 H, Eos % (Auto) 1.4, Baso % (Auto) 0.3, Absolute Neuts (auto) 4.8, Absolute Lymphs (auto) 1.37, Nucleated RBC % 0, Sodium 133 L, Potassium 3.3 L, Chloride 103, Carbon Dioxide 22.0, Anion Gap 8, BUN 6 L, Creatinine 0.43 L, Estim Creat Clear Calc 28.47, Est GFR (MDRD) Af Amer 180, EstGFR (MDRD) Non-Af 149, BUN/Creatinine Ratio 14.1, Glucose 127 H, Calcium 8.1 L Micro: Microbiology 01/10/23 14:25 Nasal Secretion SARS-CoV-2 Antigen (Rapid) - Final 01/07/23 22:50 Stool Stool Occult Blood (MAURICIO) - Final Occult Blood Positive Physical Exam Narrative GENERAL: cooperative HEENT: Atraumatic; normocephalic EYES; Anicteric, Normal Conjunctiva NECK; supple, normal thyroid, RESPIRATORY: Diminished to auscultation CARDIOVASCULAR: Regular S1 S2, GI: soft, normoactive bowel sounds, : No Renal angle tenderness; EXTREMITIES: No edema, no clubbing, MUSCULOSKELETAL: no muscle wasting NEURO: Awake; no lateralizing signs. SKIN: No Rash PSYCH; Flat affect Assessment & Plan Assessment/Plan (1) Acute GI bleeding: PLAN: Plan Patient is an 87-year-old lady who presented with coffee-ground emesis with bloody stools 1. Acute blood loss anemia ? From upper GI bleed from duodenal ulcer patient underwent upper endoscopy on 01/08/2023 by Friend was found to 1 oozing duodenal ulcer with a visible vessel which was injected. Started on PPI ? 01/11/2023;Patient hemoglobin did drop to 10.5. Seen by GI and the day prior plan is for patient to undergo repeat EGD. -01/12/2023;Patient underwent repeat EGD given her hemoglobin was continue to trend with some passage of clots per rectum. EGD did show Normal esophagus. Medium- sized hiatal hernia. One oozing duodenal ulcer with pigmented material. Injected. One non-obstructing oozing duodenal ulcer with a visible vessel. NSAID induced etiology. There is no evidence of perforation. Treated with argon plasma coagulation 2. Gastric stenosis ? Status post dilatation on 01/08/2023 3. COPD ? Currently not in exacerbation aerosol treatment as needed 4. Dyslipidemia As per history managed with only diet 5. Idiopathic thrombocytopenia ? Patient is on hydroxyurea discontinued 6. Recent closed sacral fracture ? Requested for PT OT as tolerated as well as pain management consult has been placed to case management to assist with disposition 7. DVT prophylaxis Bilateral SCDs Time spent in the patient's overall evaluation,decision-making process, review of diagnostic data, adjustment of management, discussion with other providers, nursing nursing and ancillary staff involved in patient's care documentation, 35Minutes Charges/Coding Visit Charges Inpatient E&M: 49136 Subs Hosp L2 01/12/23 0942 <Electronically signed by Homer Zelaya MD> Cosigner Signature (if applicable): CC: ~ Signed [facility] Work Phone: [phone]) 592-685807-13-2023 Progress note Author Homer Zelaya [facility] January 11, 2023 11:32am Note Date/Time January 11, 2023 8:08 am [facility] Medical Records Department [address] [facility] [address] Progress Note - Hospitalist 01/11/23 0808 MR#: [id number] Acct: [id number] Name: KELLIE HUDSON Rep #:[id number] : 1935 87 From: Homer Zelaya MD PCP: Dr. Cody Vanegas, DO Status:ADM IN Location: [place] [address] Reason for Visit Reason for Visit: Diagnoses Acute posthemorrhagic anemia (01/08/23) Thrombocytosis, unspecified (01/08/23) Gastrointestinal hemorrhage, unspecified (01/08/23) Unspecified fracture of sacrum, initial encounter for closed fracture (01/08/23) Subjective Subjective Patient hemoglobin did drop to 10.5. Seen by GI and the day prior plan is for patient to undergo repeat EGD. Objective Data Objective Data Vital Signs: Vital Signs Temp Pulse Resp BP Pulse Ox O2 Del Method O2 Flow Rate 98.5 F 116 H 18 136/62 H 99 Room Air 1 01/11/23 08:02 01/11/23 08:02 01/11/23 08:02 01/11/23 08:02 01/11/23 08:02 01/11/23 08:02 01/11/23 08:02 Oxygen Flow Rate (L/min) 1 Oxygen Delivery Method Room Air Weight: 54.4 kg Body Mass Index (BMI) 23.4 Intake & Output: Intake and Output for Last 24 Hours 01/09/23 01/10/23 01/11/23 23:59 23:59 23:59 Intake Total 1340 / 1340 931 / 1151 460 / 460 Output Total 350 / 350 50 / 50 Balance 990 / 990 881 / 1101 460 / 460 Lab / Micro Data 01/11/23 05:33 01/11/23 05:33 Labs: Laboratory Results - last 24 hr 01/10/23 11:12: Hgb 11.6 L, Hct 39.6 01/10/23 18:43: Hgb 11.0 L, Hct 33.8 L, Sodium 133 L, Potassium 3.2 L, Chloride 106, Carbon Dioxide 19.0 L, Anion Gap 8, BUN 12, Creatinine 0.60, Estim Creat Clear Calc 28.47, Est GFR (MDRD) Af Amer 121, Est GFR (MDRD) Non-Af 100, BUN/Creatinine Ratio 20.0, Glucose 228 H, Calcium 8.0 L 01/11/23 00:20: Hgb 11.0 L, Hct 33.2 L 01/11/23 05:33: WBC 7.1, RBC 3.25 L, Hgb 10.5 L, Hct 31.1 L, MCV 95.7, MCH 32.3 H, MCHC 33.8, RDW Std Deviation 65.8 H, RDW Coeff of Cyril 18.8 H, Plt Count 263, MPV 8.7, Immature Gran % (Auto) 0.700, Neut % (Auto) 71.7 H, Lymph % (Auto) 13.7L, [place] % (Auto) 12.1 H, Eos % (Auto) 1.4, Baso % (Auto) 0.4, Absolute Neuts (auto) 5.1, Absolute Lymphs (auto) 0.97, Nucleated RBC % 0, Anisocytosis 2+, Sodium 134 L, Potassium 3.5, Chloride 105, Carbon Dioxide 23.0, Anion Gap 6, BUN9, Creatinine 0.38 L, Estim Creat Clear Calc 28.47, Est GFR (MDRD) Af Amer 207, Est GFR (MDRD) Non- Af 171, BUN/Creatinine Ratio 23.7 H, Glucose 142 H, Calcium 7.9 L, Phosphorus 2.2 L, Magnesium 2.0 Micro: Microbiology 01/10/23 14:25 Nasal Secretion SARS-CoV-2 Antigen (Rapid) - Final 01/07/23 22:50 Stool Stool Occult Blood (MAURICIO) - Final Occult Blood Positive Physical Exam Narrative GENERAL: cooperative HEENT: Atraumatic; normocephalic EYES; Anicteric, Normal Conjunctiva NECK; supple, normal thyroid, RESPIRATORY: Diminished to auscultation CARDIOVASCULAR: Regular S1 S2, GI: soft, normoactive bowel sounds, : No Renal angle tenderness; EXTREMITIES: No edema, no clubbing, MUSCULOSKELETAL: no muscle wasting NEURO: Awake; no lateralizing signs. SKIN: No Rash PSYCH; Flat affect HEENT normocephalic, head/scalp atraumatic and moist oral mucous membranes Eyes PERRL, EOMs intact bilaterally and conjunctivae normal Neck supple, no JVD, thyroid normal and no carotid bruits General: trachea midline Resp normal respiratory effort, no retractions, no use of accessory muscles and clearto auscultation bilaterally Auscultation: Negative for rales, rhonchi or wheezes Cardio regular rate, regular rhythm, S1 normal heart sound, S2 normal heart sound, no murmurs, no rub and no gallops GI normal to inspection, nondistended, normoactive bowel sounds, soft to palpation,non-tender and non-distended Extremity no clubbing, cyanosis or edema Skin no rashes or lesions noted General Skin Exam: no breakdown Neuro oriented x3, CN's II-XII intact bilaterally, moves all extremities, no focal motor deficits and no sensory deficits noted Sensorium / Orientation: awake, alert, oriented to person, oriented to place andoriented to time Speech: speech normal Psych affect normal Assessment & Plan Assessment/Plan (1) Acute GI bleeding: PLAN: Plan Patient is an 87-year-old lady who presented with coffee-ground emesis with bloody stools 1. Acute blood loss anemia ? From upper GI bleed from duodenal ulcer patient underwent upper endoscopy on 01/08/2023 by Friend was found to 1 oozing duodenal ulcer with a visible vessel which was injected. Started on PPI ? 01/11/2023;Patient hemoglobin did drop to 10.5. Seen by GI and the day prior plan is for patient to undergo repeat EGD. 2. Gastric stenosis ? Status post dilatation on 01/08/2023 3. COPD ? Currently not in exacerbation aerosol treatment as needed 4. Dyslipidemia As per history managed with only diet 5. Idiopathic thrombocytopenia ? Patient is on hydroxyurea discontinued 6. Recent closed sacral fracture ? Requested for PT OT as tolerated as well as pain management consult has been placed to case management to assist with disposition 7. DVT prophylaxis Bilateral SCDs Time spent in the patient's overall evaluation,decision-making process, review of diagnostic data, adjustment of management, discussion with other providers, nursing nursing and ancillary staff involved in patient's care documentation, 35Minutes Charges/Coding Visit Charges Inpatient E&M: 42201 Subs Hosp L2 01/11/23 1132 <Electronically signed by Homer Zelaya MD> Cosigner Signature (if applicable): CC: ~ Signed [facility] Work Phone: 1(665) [phone] [facility] 01-11-[address] [facility]07-12-2023 Progress note Author Nagi Larios [facility] January 10, 2023 5:10pm Note Date/Time January 10, 2023 5:11 pm [facility] Medical Records Department [address] [place] [address] Progress Note - GI 01/10/23 1708 MR#: [id number] Acct: [id number] Name: KELLIE HUDSON Rep #:[id number] : 1935 87 From: Nagi Larios DO PCP: Dr. Cody Vanegas, Status:ADM IN Location: [place] [address] Subjective Subjective Patient underwent upper endoscopy yesterday acute GI bleeding. She did have two- point this overnight she had 2 more today. He has a clinical diet and has maintained on octreotide and PPI drip. Objective Data Objective Data Vital Signs: Vital Signs Temp Pulse Resp BP Pulse Ox O2 Del Method O2 Flow Rate 97.6 F L 87 18 117/54 L 98 Room Air 2 01/10/23 15:00 01/10/23 15:00 01/10/23 15:00 01/10/23 15:00 01/10/23 15:00 01/10/23 15:00 01/10/23 08:33 Oxygen Flow Rate (L/min) 2 Oxygen Delivery Method Room Air Weight: 119 lb 14.903 oz Body Mass Index (BMI) 23.4 Intake & Output: Intake and Output for Last 24 Hours 01/08/23 01/09/23 01/10/23 23:59 23:59 23:59 Intake Total 1471 / 1471 1340 / 1340 580 / 580 Output Total 50 / 50 350 / 350 50 / 50 Balance 1421 / 1421 990 / 990 530 / 530 Lab / Micro Data 01/10/23 11:12 01/08/23 05:45 Labs: Laboratory Results - last 24 hr 01/09/23 19:00: Hgb 12.0, Hct 35.9 L 01/10/23 11:12: Hgb 11.6 L, Hct 39.6 Micro: Microbiology 01/10/23 14:25 Nasal Secretion SARS-CoV-2 Antigen (Rapid) - Final 01/07/23 22:50 Stool Stool Occult Blood (MAURICIO) - Final Occult Blood Positive Physical Exam Narrative GENERAL: cooperative HEENT: Atraumatic; normocephalic EYES; Anicteric, Normal Conjunctiva NECK; supple, normal thyroid, RESPIRATORY: Diminished to auscultation CARDIOVASCULAR: Regular S1 S2, GI: soft, normoactive bowel sounds, : No Renal angle tenderness; EXTREMITIES: No edema, no clubbing, MUSCULOSKELETAL: no muscle wasting NEURO: Awake; no lateralizing signs. SKIN: No Rash PSYCH; Flat affect Assessment & Plan Assessment/Plan (1) Acute GI bleeding: PLAN: I will reorder H&H's every 6. Continue PPI drip as previously ordered. Ialso ordered sulcrafate and misoprostoln to enhance healing in the duodenum. (2) Acute blood loss anemia: PLAN: . Acute blood loss anemia secondary to bleeding gastric ulcer. She has ahistory of macrocytic anemia from unknown cause. Will restart her octreotide. (3) Thrombocytosis: PLAN: Patient is on hydroxyurea and it does treat her thrombocytosis. I would hold that medicine as it may inhibit her healing Charges/Coding Visit Charges Inpatient E&M: 59723 Subs Hosp L3 01/10/23 1710 <Electronically signed by Nagi Friend DO> Cosigner Signature (if applicable): CC: ~ Signed [facility] Work Phone: 1(815) 977-567307-12-[address] [facility] 01-10-[address] [facility]07-12-2023 Progress note Author Homer Zelaya [facility] January 10, 2023 9:46am Note Date/Time January 10, 2023 8:07 am [facility] Medical Records Department [address] [place] [address] Progress Note - Hospitalist 01/10/23 0802 MR#: [id number] Acct: [id number] Name: KELLIE HUDSON Rep #:[id number] : 1935 87 From: Homer Zelaya MD PCP: Dr. Cody Vanegas, DO Status:ADM IN Location: [place] [address] Reason for Visit Reason for Visit: Diagnoses Acute posthemorrhagic anemia (01/08/23) Thrombocytosis, unspecified (01/08/23) Gastrointestinal hemorrhage, unspecified (01/08/23) Unspecified fracture of sacrum, initial encounter for closed fracture (01/08/23) Subjective Subjective Patient is an 87-year-old lady who presented with coffee-ground emesis with bloody stools Objective Data Objective Data Vital Signs: Vital Signs Temp Pulse Resp BP Pulse Ox O2 Del Method O2 Flow Rate 96.8 F L 77 17 121/48 H 96 Room Air 2 01/10/23 06:34 01/10/23 06:34 01/10/23 06:34 01/10/23 06:34 01/10/23 06:34 01/10/23 06:34 01/09/23 07:23 Oxygen Flow Rate (L/min) 2 Oxygen Delivery Method Room Air Weight: 54.4 kg Body Mass Index (BMI) 23.4 Intake & Output: Intake and Output for Last 24 Hours 01/08/23 01/09/23 01/10/23 23:59 23:59 23:59 Intake Total 1471 / 1471 1340 / 1340 Output Total 50 / 50 350 / 350 50 / 50 Balance 1421 / 1421 990 / 990 -50 / -50 Lab / Micro Data 01/09/23 19:00 01/08/23 05:45 Labs: Laboratory Results - last 24 hr 01/09/23 19:00: Hgb 12.0, Hct 35.9 L Micro: Microbiology 01/07/23 22:50 Stool Stool Occult Blood (MAURICIO) - Final Occult Blood Positive Physical Exam Narrative GENERAL: cooperative HEENT: Atraumatic; normocephalic EYES; Anicteric, Normal Conjunctiva NECK; supple, normal thyroid, RESPIRATORY: Diminished to auscultation CARDIOVASCULAR: Regular S1 S2, GI: soft, normoactive bowel sounds, : No Renal angle tenderness; EXTREMITIES: No edema, no clubbing, MUSCULOSKELETAL: no muscle wasting NEURO: Awake; no lateralizing signs. SKIN: No Rash PSYCH; Flat affect Assessment & Plan Assessment/Plan (1) Acute GI bleeding: PLAN: Plan Patient is an 87-year-old lady who presented with coffee-ground emesis with bloody stools 1. Acute blood loss anemia ? From upper GI bleed from duodenal ulcer patient underwent upper endoscopy on 01/08/2023 by . Friend was found to 1 oozing duodenal ulcer with a visible vessel which was injected. Started on PPI 2. Gastric stenosis ? Status post dilatation on 01/08/2023 3. COPD ? Currently not in exacerbation aerosol treatment as needed 4. Dyslipidemia As per history managed with only diet 5. Idiopathic thrombocytopenia ? Patient is on hydroxyurea discontinued 6. Recent closed sacral fracture ? Requested for PT OT as tolerated as well as pain management consult has been placed to case management to assist with disposition 7. DVT prophylaxis Bilateral SCDs Time spent in the patient's overall evaluation,decision-making process, review of diagnostic data, adjustment of management, discussion with other providers, nursing nursing and ancillary staff involved in patient's care documentation, 35Minutes Charges/Coding Visit Charges Inpatient E&M: 77909 Subs Hosp L2 01/10/23 0946 <Electronically signed by Homer Zelaya MD> Cosigner Signature (if applicable): CC: ~ Signed [facility] Work Phone: 1(801) 981-761207-11-2023 Progress note Author Nagi Larios [facility] January 09, 2023 7:00pm Note Date/Time January 09, 2023 6:58 pm [facility] Medical Records Department [address] [place] [address] Progress Note - GI 01/09/23 1857 MR#: [id number] Acct: [id number] Name: KELLIE HUDSON Rep #:[id number] : 1935 87 From: Nagi Larios DO PCP: Dr. Cody Vanegas, DO Status:ADM IN Location: [place] [address] Subjective Subjective I was alerted that the patient had a bloody stool this evening. She is still been tachycardic all day today. She has been eating. Objective Data Objective Data Vital Signs: Vital Signs Temp Pulse Resp BP Pulse Ox O2 Del Method O2 Flow Rate 97.3 F L 111 H 18 125/59 H 97 Room Air 2 01/09/23 15:17 01/09/23 15:17 01/09/23 15:17 01/09/23 15:17 01/09/23 15:17 01/09/23 15:17 01/09/23 07:23 Oxygen Flow Rate (L/min) 2 Oxygen Delivery Method Room Air Weight: 119 lb 14.903 oz Body Mass Index (BMI) 23.4 Intake & Output: Intake and Output for Last 24 Hours 01/07/23 01/08/23 01/09/23 23:59 23:59 23:59 Intake Total 35 / 35 1471 / 1471 1240 / 1240 Output Total 50 / 50 350 / 350 Balance 35 / 35 1421 / 1421 890 / 890 Lab / Micro Data 01/08/23 19:00 01/08/23 05:45 Labs: Laboratory Results - last 24 hr 01/07/23 22:50: Crossmatch See Detail 01/07/23 22:50: Crossmatch See Detail 01/08/23 19:00: WBC 13.0 H, RBC 3.17 L, Hgb 10.4 L, Hct 31.8 L, MCV 100.3 H D, MCH 32.8 H, MCHC 32.7, RDW Std Deviation 76.5 H, RDW Coeff of Cyril 21.1 H, Plt Count 387, MPV 8.6, Immature Gran % (Auto) 1.400 H, Neut % (Auto) 80.2 H, Lymph % (Auto) 9.4 L, [place] % (Auto) 8.3, Eos % (Auto) 0.2, Baso % (Auto) 0.5, AbsoluteNeuts (auto) 10.4 H, Absolute Lymphs (auto) 1.22, Nucleated RBC % 0, Platelet Estimate ADEQUATE, RBC Morphology N CHROM, Anisocytosis 2+, Macrocytosis 2+, Ovalocytes RARE Micro: Microbiology 01/07/23 22:50 Stool Stool Occult Blood (MAURICIO) - Final Occult Blood Positive Physical Exam Const alert, oriented x3, no apparent distress and average body habitus General Appearance: cooperative, well kempt and well developed Orientation / Consciousness: awake, oriented to person, oriented to place and oriented to time HEENT normocephalic, head/scalp atraumatic and moist oral mucous membranes Eyes PERRL, EOMs intact bilaterally and conjunctivae normal Neck supple, no JVD, thyroid normal and no carotid bruits General: trachea midline Resp normal respiratory effort, no retractions, no use of accessory muscles and clearto auscultation bilaterally Auscultation: Negative for rales, rhonchi or wheezes Cardio regular rate, regular rhythm, S1 normal heart sound, S2 normal heart sound, no murmurs, no rub and no gallops GI normal to inspection, nondistended, normoactive bowel sounds, soft to palpation,non-tender and non-distended Extremity no clubbing, cyanosis or edema Skin no rashes or lesions noted General Skin Exam: no breakdown Neuro oriented x3, CN's II-XII intact bilaterally, moves all extremities, no focal motor deficits and no sensory deficits noted Sensorium / Orientation: awake, alert, oriented to person, oriented to place andoriented to time Speech: speech normal Psych affect normal Assessment & Plan Assessment/Plan (1) Acute GI bleeding: PLAN: I will order H&H's every 6. Continue PPI drip as previously ordered. (2) Acute blood loss anemia: PLAN: . Acute blood loss anemia secondary to bleeding gastric ulcer. She has ahistory of macrocytic anemia from unknown cause. Will restart her octreotide. (3) Thrombocytosis: PLAN: Patient is on hydroxyurea and it does treat her thrombocytosis. I would hold that medicine as it may inhibit her healing Charges/Coding Visit Charges Inpatient E&M: 14601 Subs Hosp L3 01/09/23 1900 <Electronically signed by Nagi Larios DO> Cosigner Signature (if applicable): CC: ~ Signed [facility] Work Phone: 1(745) 835-270707-11-2023 Progress note Author Cody Crandall [facility] January 09, 2023 4:27pm Note Date/Time January 09, 2023 3:53 pm [facility] Medical Records Department [facility] [place] [address] Progress Note - Hospitalist 07/05/24 1546 MR#: [id number] Acct: [id number] Name: KELLIE HUDSON Rep #:[id number] : 1935 87 From: Cody Crandall DO PCP: Dr. Cody Vanegas, DO Status:ADM IN Location: [place] [address] Reason for Visit Reason for Visit: Diagnoses Acute posthemorrhagic anemia (01/08/23) Gastrointestinal hemorrhage, unspecified (01/08/23) Unspecified fracture of sacrum, initial encounter for closed fracture (01/08/23) Subjective Subjective Seen and examined today, her hemoglobin this morning was 10.4. I talked brieflywith gastroenterology about her care, I placed her on a diet, I had a discussionwith her concerning discharge planning, she feels she may benefit from going to a residential facility for short-term rehab. Until that time, she will be monitored for recurrent bleeding. Objective Data Objective Data Vital Signs: Vital Signs Temp Pulse Resp BP Pulse Ox O2 Del Method O2 Flow Rate 97.3 F L 111 H 18 125/59 H 97 Room Air 2 01/09/23 15:17 01/09/23 15:17 01/09/23 15:17 01/09/23 15:17 01/09/23 15:17 01/09/23 15:17 01/09/23 07:23 Oxygen Flow Rate (L/min) 2 Oxygen Delivery Method Room Air Weight: 54.4 kg Body Mass Index (BMI) 23.4 Intake & Output: Intake and Output for Last 24 Hours 01/07/23 01/08/23 01/09/23 23:59 23:59 23:59 Intake Total 35 / 35 1471 / 1471 1000 / 1000 Output Total 50 / 50 250 / 250 Balance 35 / 35 1421 / 1421 750 / 750 Lab / Micro Data 01/08/23 19:00 01/08/23 05:45 Labs: Laboratory Results - last 24 hr 01/07/23 22:50: Crossmatch See Detail 01/07/23 22:50: Crossmatch See Detail 01/08/23 19:00: WBC 13.0 H, RBC 3.17 L, Hgb 10.4 L, Hct 31.8 L, MCV 100.3 H D, MCH 32.8 H, MCHC 32.7, RDW Std Deviation 76.5 H, RDW Coeff of Cyril 21.1 H, Plt Count 387, MPV 8.6, Immature Gran % (Auto) 1.400 H, Neut % (Auto) 80.2 H, Lymph % (Auto) 9.4 L, [place] % (Auto) 8.3, Eos % (Auto) 0.2, Baso % (Auto) 0.5, AbsoluteNeuts (auto) 10.4 H, Absolute Lymphs (auto) 1.22, Nucleated RBC % 0, Platelet Estimate ADEQUATE, RBC Morphology N CHROM, Anisocytosis 2+, Macrocytosis 2+, Ovalocytes RARE Micro: Microbiology 01/07/23 22:50 Stool Stool Occult Blood (MAURICIO) - Final Occult Blood Positive Physical Exam Const alert, oriented x3, no apparent distress and average body habitus General Appearance: cooperative, well kempt and well developed Orientation / Consciousness: awake, oriented to person, oriented to place and oriented to time HEENT normocephalic, head/scalp atraumatic and moist oral mucous membranes Eyes PERRL, EOMs intact bilaterally and conjunctivae normal Neck supple, no JVD, thyroid normal and no carotid bruits General: trachea midline Resp normal respiratory effort, no retractions, no use of accessory muscles and clearto auscultation bilaterally Auscultation: Negative for rales, rhonchi or wheezes Cardio regular rate, regular rhythm, S1 normal heart sound, S2 normal heart sound, no murmurs, no rub and no gallops GI normal to inspection, nondistended, normoactive bowel sounds, soft to palpation,non-tender and non-distended Extremity no clubbing, cyanosis or edema Skin no rashes or lesions noted General Skin Exam: no breakdown Neuro oriented x3, CN's II-XII intact bilaterally, moves all extremities, no focal motor deficits and no sensory deficits noted Sensorium / Orientation: awake, alert, oriented to person, oriented to place andoriented to time Speech: speech normal Psych affect normal Assessment & Plan Assessment/Plan (1) Acute GI bleeding: PLAN: Plan 1. Acute blood loss anemia from upper GI bleed secondary to duodenal ulcer- patient is to remain on her present medications per gastroenterology. She remains on a PPI drip. #2 gastric stenosis-this was dilated yesterday #3 chronic obstructive pulmonary disease-patient is to remain on her present medications #4 hyperlipidemia-does not appear the patient is taking any medications for hyperlipidemia #5 acute blood loss anemia from upper GI bleed requiring blood transfusion- patient's hemoglobin appears to be stable at this time, labs will be monitored #6 recent closed sacral fracture-patient will obviously need to stay off nonsteroidal anti-inflammatory agents at this time, she is currently on tramadol #7 osteoarthritis-complicates care, medical course, recovery, and prognosis #8 idiopathic thrombocythemia-patient is on hydroxyurea #9 acute debility-patient is being seen by PT and OT, it is likely she will needa short-term stay in a residential facility for rehab services. Total clinical time spent by myself addressing the patient's medical issues, reviewing all of her data, and collaborating with patient's care team: 35 minutes Charges/Coding Visit Charges Inpatient E&M: 15078 Subs Hosp L2 01/09/23 1627 <Electronically signed by Cody Crandall DO> Cosigner Signature (if applicable): CC: ~ Signed [facility] Work Phone: 1([phone]) 621-810107-10-2023 Progress note Author [facility] January 08, 2023 6:15pm Note Date/Time January 08, 2023 6:15 pm [facility] Medical Records Department [address] [place] [address] Progress Note - Hospitalist 01/08/23 1812 MR#: [id number] Acct: [id number] Name: KELLIE HUDSON Rep #:[id number] : 1935 87 From: Cody Crandall DO PCP: Dr. Cody Vanegas, Status:ADM IN Location: [place] [address] Hospitalist Note Patient was seen and examined today, I talked with her daughters were in the room at the time my examination. Patient stated that she did not want to be resuscitated in the event of a cardiopulmonary arrest, she also did not want to be on the ventilator. Patient underwent an EGD today which showed 1 oozing duodenal ulcer with a visible vessel, this area is injected, there is also notedto be multiple oozing duodenal ulcers with pigmented material, these were treated with a monopolar probe. I talked briefly with gastroenterology today, they feel the patient needs repeat EGD tomorrow. I will repeat the patient's H&H tonight. 01/08/231814 <Electronically signed by Cody Crandall DO> Cosigner Signature (if applicable): CC: ~ Signed [facility] Work Phone: 1(257) 852-542807-10-2023 Consult note Author Nagi Larios [facility] January 08, 2023 1:00pm Note Date/Time January 08, 2023 12:5 8pm [facility] Medical Records Department [address] [place] [address] Consultation - GI 01/08/23 1257 MR#: [id number] Acct: [id number] Name: KELLIE HUDSON Rep #:[id number] : 1935 87 From: Nagi Larios DO PCP: Dr. Cody Vanegas DO Status:ADM IN Location: [place] [address] HPI Consult Data Date of Consult: 01/07/23 HPI Narrative Reason for Consultation: GI bleed HPI Narrative: KELLIE HUDSON, is a 87 F who presents with nausea and bloody diarrhea. She has a past medical history hyperlipidemia and recent coccyx/sacral fracture. She states that because of the fracture she has been having difficulty walking for the past few weeks and had with the pain has been taking hydrocodone Tylenol andibuprofen throughout the day. She states she has been doing this for 2 to 3 weeks. She states that this evening essentially just prior to arrival in the ER that she fell like she was going to get sick and went to the bathroom and had a bout of vomiting and diarrhea and both are bloody in nature. She denies any history of bleeding disorder or blood thinner use and states that since the onset of the symptoms she is also felt lightheaded like she is going to pass out. She denies any abdominal pain or chest pain. Initially she had black vomitus but later on there appeared to be blood in it. Also initially she had melena but later on progressed to hematochezia. Her symptoms of melena started about 2 days before presentation but the hematemesis was on the day of presentation. She stopped taking meloxicam but later on significant she was placed on ibuprofen. She reported lightheadedness. [facility] Medical History Bilateral shoulder pain COPD (chronic obstructive pulmonary disease) Depression Fall GERD (gastroesophageal reflux disease) Goiter Hemorrhoids Hyperlipidemia Idiopathic thrombocythemia Left hip pain Macular degeneration Nodule of left lung Nonrheumatic tricuspid valve regurgitation Osteoarthritis Osteoporosis Pancreatic cyst Pericardial effusion Right hip pain Right knee pain Secondary pulmonary arterial hypertension Vertigo Vitamin D deficiency Home Medications albuterol sulfate 90 mcg/actuation aerosol inhaler (Ventolin HFA) 1 puff inhalation Q6H PRN Sob &/Or Wheezing 02/26/18 [History Last Taken Unknown] calcium phosphate 250 mg-vit D3 12.5 mcg (500 unit) chewable tablet (Citracal-S0Jsnefoe) 1 tab PO DAILY 02/26/18 [History Last Taken 12/07/22] cholecalciferol (vitamin D3) 25 mcg (1,000 unit) capsule 1,000 unit PO DAILY 02/26/18 [History Last Taken 12/07/22] docusate sodium 100 mg capsule (Stool Softener) 100 mg PO DAILY 02/26/18 [History Last Taken 12/07/22] fluticasone propionate 50 mcg/actuation nasal spray,suspension (Flonase Allergy Relief) 1 spray intranasal DAILY PRN Allergies 02/26/18 [History Last Taken 12/07/22] guaifenesin 600 mg tablet, extended release 12 hr (Mucinex) 600 mg PO Q12H PRN Cough 02/26/18 [History Last Taken 12/08/22] magnesium oxide 500 mg capsule 250 mg PO BID 02/26/18 [History Last Taken 12/07/22] zoledronic acid 5 mg/100 mL in mannitol 5 %-water intravenous piggybck (Reclast)1 dose .Route .Q2YEAR 02/26/18 [History Last Taken Unknown] coenzyme Q10 100 mg capsule (Co Q-10) 200 mg PO BID 02/27/18 [History Last Taken 12/07/22] metoprolol tartrate 25 mg tablet 12.5 mg PO DAILY PRN heart flutter 02/20/19 [History Last Taken 12/07/22] simethicone 180 mg capsule (Gas-X Ultra-Strength) 180 mg PO BID PRN Gastric Reflux 08/27/20 [History Last Taken 12/07/22] hydroxyurea 500 mg capsule 500 mg PO DAILY 09/14/22 [History Last Taken 12/07/22] cetirizine 10 mg tablet (Zyrtec) 10 mg PO DAILY ALLERGIES 12/08/22 [History Last Taken 12/08/22] ibuprofen 200 mg tablet 400 mg PO Q6H PRN Pain 12/08/22 [History Last Taken 12/07/22] acetaminophen 500 mg tablet 1,000 mg (2 x 500 mg) PO Q8 6 days #36 tabs 12/09/22[Rx Last Taken Unknown] hydrocodone-acetaminophen 5-325mg 5mg-325mg 1 tab PO Q12H PRN PRN PAIN 6-10 01/07/23 [History Last Taken Unknown] meclizine 25 mg chewable tablet (Antivert) 25 mg PO DAILY PRN PRN dizziness 01/07/23 [History Last Taken Unknown] multivitamin-ferrous fumarate-folic acid 18 mg-400 mcg tablet (Centrum Women) 1 tab PO DAILY 01/07/23 [History Last Taken Unknown] vitamin A 2,500 unit-vit C 100 mg-biotin 2,500 iqi-vmnx-aerxuc capsule (Nfvf-Bduk-Lqsv (vit A,H-axoxgz-Wy-Cu)) cap PO BID 01/07/23 [History Last Taken Unknown] Allergy/AdvReac Type Severity Reaction Status Date / Time amoxicillin AdvReac Upset Verified 12/08/22 12:45 Stomach atorvastatin [From Lipitor] AdvReac myalgias Verified 12/08/22 12:45 ciprofloxacin [From Cipro] AdvReac Itching Verified 12/08/22 12:45 clarithromycin [From Biaxin] AdvReac Vomiting Verified 12/08/22 12:45 thiopental [From Pentothal] AdvReac Nausea Verified 12/08/22 12:45 Family History Brother CAD (coronary artery disease) Diabetes Father Diabetes Myocardial infarction Surgical History H/O colectomy H/O shoulder surgery H/O total knee replacement (06/2018) History of appendectomy History of carpal tunnel release History of right and left heart catheterization (09/22/13) History of right hip replacement History of total left hip replacement Hx of cholecystectomy S/P tendon repair Social History Smoking Status: Never smoker alcohol intake: never ROS ROS Narrative Pertinent positives and pertinent negatives as noted in HPI. All other systems were reviewed and are negative Lab / Micro Data 01/07/23 22:50 01/08/23 05:45 Labs: Laboratory Results - last 24 hr 01/07/23 22:50: WBC 15.8 H, RBC 2.15 L, Hgb 7.6 L, Hct 22.8 L, MCV 106.0 H, MCH 35.3 H, MCHC 33.3, RDW Std Deviation 59.4 H, RDW Coeff of Cyril 15.2 H, Plt Count 398, MPV 8.9, Immature Gran % (Auto) 0.700, Neut % (Auto) 75.8 H, Lymph % (Auto)13.2 L, [place] % (Auto) 9.2, Eos % (Auto) 0.8, Baso % (Auto) 0.3, Absolute Neuts (auto) 12.0 H, Absolute Lymphs (auto) 2.09, Nucleated RBC % 0, PT 14.3, INR 1.1,APTT 26.5, Sodium 132 L, Potassium 4.2, Chloride 103, Carbon Dioxide 25.0, AnionGap 4 L, BUN 33 H, Creatinine 0.58, Estim Creat Clear Calc 28.47, Est GFR (MDRD)Af Amer 127, Est GFR (MDRD) Non-Af 105, BUN/Creatinine Ratio 57.3 H, Glucose 207H, Calcium 8.2 L, Total Bilirubin 0.30, Direct Bilirubin 0.09, AST 13 L, ALT 17,Alkaline Phosphatase 89, Total Protein 4.6 L, Albumin 2.3 L, Globulin 2.3, Antibody Screen NEGATIVE, Crossmatch See Detail 01/07/23 22:50: Crossmatch See Detail 01/08/23 05:45: Sodium 135 L, Potassium 4.5, Chloride 108 H, Carbon Dioxide 23.0, Anion Gap 4 L, BUN 25 H, Creatinine 0.38 L, Estim Creat Clear Calc 28.47, Est GFR (MDRD) Af Amer 208, Est GFR (MDRD) Non-Af 172, BUN/Creatinine Ratio 66.5H, Glucose 116 H, Calcium 7.8 L, Magnesium 2.0 Micro: Microbiology 01/07/23 22:50 Stool Stool Occult Blood (MAURICIO) - Final Occult Blood Positive Radiology Impression Abdomen/Pelvis CTA 01/07/23 22:47 IMPRESSION: No active GI bleeding identified, as discussed above. Interval development of sacral insufficiency fracture. Large cystic mass again seen arising in the region of the pancreatic head. Minimal colonic diverticulosis without evidence for acute diverticulitis. Electronically Signed: Papi Waggoner MD at 0:31 EDT , Brain CT 01/07/23 22:47 IMPRESSION: Atrophy and chronic small vessel ischemic changes. No acute findings in the head/brain. Electronically Signed: Papi Waggoner MD at 0:11 EDT , Chest X-Ray 01/07/23 22:47 IMPRESSION: No definite acute cardiopulmonary disease or significant change compared to prior study. Electronically Signed: Greg Shultz MD at 23:33 EDT , Assessment & Plan Assessment/Plan (1) Acute GI bleeding: (2) Acute blood loss anemia: (3) Closed sacral fracture: QUALIFIERS: Encounter type: initial encounter PLAN: Plan 87-year-old with recent closed sacral fracture on NSAIDs presents with abdominalpain, nausea, melanotic stools. Acute anemia secondary to GI bleed Her hemoglobin on presentation was 7.6. Her hemoglobin on 12/08/2022 was 13.7; and on 12/09/2022 was 12.2. The patient has dropped 4 points in her hemoglobin. 2 units of packed red blood cells was ordered to receive in the emergency department. Trend H&H. Keep patient NPO. Protonix IV at emergency department and continued. The plan is for upper endoscopy to evaluate upper GI tract. Charges/Coding Visit Charges Inpatient E&M: 23354 Init Hosp L3 01/08/23 1300 <Electronically signed by Nagi Larios DO> Cosigner Signature (if applicable): CC: Dr. Odilon Parra MD; Dr. Cody Vanegas DO; Nagi Larios DO~ Signed [facility] Work Phone: [phone]) [phone] [facility] 01-08-[address] [facility]07-10-2023 History and physical note Author Odilon Parra [facility] January 08, 2023 6:07am Note Date/Time January 08, 2023 1:39 am [facility] Medical Records Department [address] [place] [address] H&P Exam - Hospitalist 01/08/23 0138 MR#: [id number] Acct: [id number] Name: KELLIE HUDSON Rep #:[id number] : 1935 87 From: Odilon Parra MD PCP: Dr. Cody Vanegas DO Status:ADM IN Location: [facility] [id number]- [id number] HPI - General General Date of Admission: 01/08/23 Date of Service: 01/08/23 Chief Complaint: Hematemesis and hematochezia HPI Narrative KELLIE HUDSON, is a 87 F with a significant history of COPD; and hyperlipidemia who presents to the emergency department with hematemesis and hematochezia. Initially she had black vomitus but later on there appeared to be blood in it. Also initially she had melena but later on progressed to hematochezia. Her symptoms of melena started about 2 days before presentation but the hematemesis was on the day of presentation. Patient recently broke her sacrum. She was placed on hydrocodone Tylenol, meloxicam. She stopped taking meloxicam but later on significant she was placedon ibuprofen. She reported lightheadedness. [facility] Medical History Bilateral shoulder pain COPD (chronic obstructive pulmonary disease) Depression Fall GERD (gastroesophageal reflux disease) Goiter Hemorrhoids Hyperlipidemia Idiopathic thrombocythemia Left hip pain Macular degeneration Nodule of left lung Nonrheumatic tricuspid valve regurgitation Osteoarthritis Osteoporosis Pancreatic cyst Pericardial effusion Right hip pain Right knee pain Secondary pulmonary arterial hypertension Vertigo Vitamin D deficiency Home Medications albuterol sulfate 90 mcg/actuation aerosol inhaler (Ventolin HFA) 1 puff inhalation Q6H PRN Sob &/Or Wheezing 02/26/18 [History Last Taken Unknown] calcium phosphate 250 mg-vit D3 12.5 mcg (500 unit) chewable tablet (Citracal-S5Oiypywl) 1 tab PO DAILY 02/26/18 [History Last Taken 12/07/22] cholecalciferol (vitamin D3) 25 mcg (1,000 unit) capsule 1,000 unit PO DAILY 02/26/18 [History Last Taken 12/07/22] docusate sodium 100 mg capsule (Stool Softener) 100 mg PO DAILY 02/26/18 [History Last Taken 12/07/22] fluticasone propionate 50 mcg/actuation nasal spray,suspension (Flonase Allergy Relief) 1 spray intranasal DAILY PRN Allergies 02/26/18 [History Last Taken 12/07/22] guaifenesin 600 mg tablet, extended release 12 hr (Mucinex) 600 mg PO Q12H PRN Cough 02/26/18 [History Last Taken 12/08/22] magnesium oxide 500 mg capsule 250 mg PO BID 02/26/18 [History Last Taken 12/07/22] zoledronic acid 5 mg/100 mL in mannitol 5 %-water intravenous piggybck (Reclast)1 dose .Route .Q2YEAR 02/26/18 [History Last Taken Unknown] coenzyme Q10 100 mg capsule (Co Q-10) 200 mg PO BID 02/27/18 [History Last Taken 12/07/22] metoprolol tartrate 25 mg tablet 12.5 mg PO DAILY PRN heart flutter 02/20/19 [History Last Taken 12/07/22] simethicone 180 mg capsule (Gas-X Ultra-Strength) 180 mg PO BID PRN Gastric Reflux 02/26/20 [History Last Taken 12/07/22] hydroxyurea 500 mg capsule 500 mg PO DAILY 09/14/22 [History Last Taken 12/07/22] cetirizine 10 mg tablet (Zyrtec) 10 mg PO DAILY ALLERGIES 12/08/22 [History Last Taken 12/08/22] ibuprofen 200 mg tablet 400 mg PO Q6H PRN Pain 12/08/22 [History Last Taken 12/07/22] acetaminophen 500 mg tablet 1,000 mg (2 x 500 mg) PO Q8 6 days #36 tabs 12/09/22[Rx Last Taken Unknown] hydrocodone-acetaminophen 5-325mg 5mg-325mg 1 tab PO Q12H PRN PRN PAIN 6-10 01/07/23 [History Last Taken Unknown] meclizine 25 mg chewable tablet (Antivert) 25 mg PO DAILY PRN PRN dizziness 01/07/23 [History Last Taken Unknown] multivitamin-ferrous fumarate-folic acid 18 mg-400 mcg tablet (Centrum Women) 1 tab PO DAILY 01/07/23 [History Last Taken Unknown] vitamin A 2,500 unit-vit C 100 mg-biotin 2,500 vdm-hnki-jihmkf capsule (Pugn-Qmtc-Twqk (vit A,G-mnwdmg-Dl-Cu)) cap PO BID 01/07/23 [History Last Taken Unknown] Allergy/AdvReac Type Severity Reaction Status Date / Time amoxicillin AdvReac Upset Verified 12/08/22 12:45 Stomach atorvastatin [From Lipitor] AdvReac myalgias Verified 12/08/22 12:45 ciprofloxacin [From Cipro] AdvReac Itching Verified 12/08/22 12:45 clarithromycin [From Biaxin] AdvReac Vomiting Verified 12/08/22 12:45 thiopental [From Pentothal] AdvReac Nausea Verified 12/08/22 12:45 Family History Brother CAD (coronary artery disease) Diabetes Father Diabetes Myocardial infarction Surgical History H/O colectomy H/O shoulder surgery H/O total knee replacement (06/2018) History of appendectomy History of carpal tunnel release History of right and left heart catheterization (09/22/13) History of right hip replacement History of total left hip replacement Hx of cholecystectomy S/P tendon repair Social History Smoking Status: Never smoker alcohol intake: never ROS ROS Narrative Pertinent positives and pertinent negatives as noted in HPI. All other systems were reviewed and are negative Vital Signs Vital Signs Vital Signs: 01/07/23 22:29 01/07/23 23:06 01/08/23 00:03 Temperature 98.0 F 97.6 F L Temperature Source Temporal Oral Pulse Rate 92 120 H 109 H Respiratory Rate 16 16 20 H Blood Pressure 99/45 L 118/59 L 147/54 H Blood Pressure Mean 63 78 85 Blood Pressure Source Monitor Monitor Blood Pressure Position Semi-Fowlers Semi-Fowlers Blood Pressure Location Right Arm Left Arm Pulse Ox 100 94 100 Oxygen Delivery Method Room Air Room Air Nasal Cannula Oxygen Flow Rate (L/min) 2 01/08/23 00:06 01/08/23 00:41 01/08/23 00:52 Temperature 97.9 F 97.5 F L Temperature Source Oral Oral Pulse Rate 114 H 121 H 123 H Respiratory Rate 17 13 26 H Blood Pressure 147/54 H 126/57 H 119/60 Blood Pressure Mean 85 80 79 Blood Pressure Source Monitor Blood Pressure Position Semi-Fowlers Blood Pressure Location Left Arm Pulse Ox 100 100 99 Oxygen Delivery Method Nasal Cannula Nasal Cannula Nasal Cannula Oxygen Flow Rate (L/min) 2 2 01/08/23 00:56 01/08/23 01:10 01/08/23 01:11 Temperature 97.2 F L 97.2 F L 97.2 F L Temperature Source Oral Oral Oral Pulse Rate 125 H 122 H 122 H Respiratory Rate 23 H 10 L 11 L Blood Pressure 106/57 L 106/57 L 106/57 L Blood Pressure Mean 73 73 73 Blood Pressure Source Monitor Blood Pressure Position Semi-Fowlers Blood Pressure Location Left Arm Pulse Ox 100 99 99 Oxygen Delivery Method Nasal Cannula Nasal Cannula Nasal Cannula Oxygen Flow Rate (L/min) 2 2 Weight Weight: 57.6 kg Body Mass Index (BMI) 24.7 Physical Exam Narrative Physical exam: General: Well-nourished, well-developed. Head: Normocephalic, atraumatic, no tenderness Eyes: Vision is grossly intact. EOMI ENT, no trauma, moist mucous membranes, no rhinorrhea Neck: Nontender, No thyromegaly. CVS: Regular rate and rhythm. S1-S2 present. No murmur, gallop or rub. Respiratory : clear to auscultation bilaterally, chest wall nontender Abdomen: Soft, nontender, nondistended, normal bowel sounds, no masses : Deferred Back: Nontender, no CVA tenderness, no midline spinal tenderness, deformities, step-offs Extremities: Nontender full range of motion, no trauma Skin: Normal color, no trauma, abrasions Neuro: Alert, oriented, cranial nerves II through XII grossly intact. Psychiatry: Normal mood. Normal affect. Not depressed. Not anxious. Results Lab / Micro Data Attestation: I reviewed the patient's lab results. 01/07/23 22:50 01/07/23 22:50 Labs: Laboratory Results - last 24 hr 01/07/23 22:50: WBC 15.8 H, RBC 2.15 L, Hgb 7.6 L, Hct 22.8 L, MCV 106.0 H, MCH 35.3 H, MCHC 33.3, RDW Std Deviation 59.4 H, RDW Coeff of Cyril 15.2 H, Plt Count 398, MPV 8.9, Immature Gran % (Auto) 0.700, Neut % (Auto) 75.8 H, Lymph % (Auto)13.2 L, [place] % (Auto) 9.2, Eos % (Auto) 0.8, Baso % (Auto) 0.3, Absolute Neuts (auto) 12.0 H, Absolute Lymphs (auto) 2.09, Nucleated RBC % 0, PT 14.3, INR 1.1,APTT 26.5, Sodium 132 L, Potassium 4.2, Chloride 103, Carbon Dioxide 25.0, AnionGap 4 L, BUN 33 H, Creatinine 0.58, Estim Creat Clear Calc 28.47, Est GFR (MDRD)Af Amer 127, Est GFR (MDRD) Non-Af 105, BUN/Creatinine Ratio 57.3 H, Glucose 207H, Calcium 8.2 L, Total Bilirubin 0.30, Direct Bilirubin 0.09, AST 13 L, ALT 17,Alkaline Phosphatase 89, Total Protein 4.6 L, Albumin 2.3 L, Globulin 2.3, Antibody Screen NEGATIVE, Crossmatch See Detail 01/07/23 22:50: Crossmatch See Detail Micro: Microbiology 01/07/23 22:50 Stool Stool Occult Blood (MAURICIO) - Final Occult Blood Positive Radiology Impression Abdomen/Pelvis CTA 01/07/23 22:47 IMPRESSION: No active GI bleeding identified, as discussed above. Interval development of sacral insufficiency fracture. Large cystic mass again seen arising in the region of the pancreatic head. Minimal colonic diverticulosis without evidence for acute diverticulitis. Electronically Signed: Papi Waggoner MD at 0:31 EDT , Brain CT 01/07/23 22:47 IMPRESSION: Atrophy and chronic small vessel ischemic changes. No acute findings in the head/brain. Electronically Signed: Papi Waggoner MD at 0:11 EDT , Chest X-Ray 01/07/23 22:47 IMPRESSION: No definite acute cardiopulmonary disease or significant change compared to prior study. Electronically Signed: Greg Shultz MD at 23:33 EDT , Assessment & Plan Assessment/Plan (1) Acute GI bleeding: (2) Acute blood loss anemia: (3) Closed sacral fracture: QUALIFIERS: Encounter type: initial encounter PLAN: Plan Acute anemia secondary to GI bleed Hemoglobin on presentation was 7.6. His hemoglobin on 12/08/2022 was 13.7; and on 12/09/2022 was 12.2. The patient has dropped 4 points in her hemoglobin. 2 units of packed red blood cells was ordered to receive in the emergency department. Trend H&H. Keep patient NPO. Protonix IV at emergency department and continued. Gastroenterology consult. Sacral fracture Abdomen/pelvis CT showed sacral fracture fracture. Hospitalist agrees with radiologist interpretation. Ultram as needed ordered. DVT prophylaxis: SCDs ordered. Time spent in the patient's overall evaluation,decision-making process, review of diagnostic data, adjustment of management, discussion with other providers, nursing nursing and ancillary staff involved in patient's care documentation, 44minutes. Charges/Coding Visit Charges Inpatient E&M: 19860 Init Hosp L2 01/08/23 0607 <Electronically signed by Odilon Parra MD> Cosigner Signature (if applicable): CC: Dr. Odilon Parra MD; Dr. Cody Vanegas DO~ Signed [facility] Work Phone: [phone] 122-157007-10-2023 Discharge summary Author Homer Beaulieu [facility] January 08, 2023 1:44am Note Date/Time January 07, 2023 10:57 pm [facility] Medical Records Department [address] [place] [address] Emergency Department Summary 01/07/23 MR#: [id number] Acct: [id number] Name: KELLIE HUDSON Rep #:[id number] : 1935 87 From: Homer Beaulieu DO PCP: Dr. Cody Vanegas DO Status:ADM IN Location: [address] History of Present Illness Chief Complaint: GI Bleed Informant: patient and family Narrative Narrative: Patient is a 87-year-old female with past medical history hyperlipidemia and recent coccyx/sacral fracture. She states that because of the fracture she has been having difficulty walking for the past few weeks and had with the pain has been taking hydrocodone Tylenol and ibuprofen throughout the day. She states she has been doing this for 2 to 3 weeks. She states that this evening essentially just prior to arrival in the ER that she fell like she was going to get sick and went to the bathroom and had a bout of vomiting and diarrhea and both are bloody in nature. She denies any history of bleeding disorder or bloodthinner use and states that since the onset of the symptoms she is also felt lightheaded like she is going to pass out. She denies any abdominal pain or chest pain associated with this. She does state that she is a DNR Comfort Care arrest no intubation [facility] Medical History Bilateral shoulder pain COPD (chronic obstructive pulmonary disease) Depression Fall GERD (gastroesophageal reflux disease) Goiter Hemorrhoids Hyperlipidemia Idiopathic thrombocythemia Left hip pain Macular degeneration Nodule of left lung Nonrheumatic tricuspid valve regurgitation Osteoarthritis Osteoporosis Pancreatic cyst Pericardial effusion Right hip pain Right knee pain Secondary pulmonary arterial hypertension Vertigo Vitamin D deficiency Home Medications albuterol sulfate 90 mcg/actuation aerosol inhaler (Ventolin HFA) 1 puff inhalation Q6H PRN Sob &/Or Wheezing 02/26/18 [History Last Taken Unknown] calcium phosphate 250 mg-vit D3 12.5 mcg (500 unit) chewable tablet (Citracal-E8Ldhqdyx) 1 tab PO DAILY 02/26/18 [History Last Taken 12/07/22] cholecalciferol (vitamin D3) 25 mcg (1,000 unit) capsule 1,000 unit PO DAILY 02/26/18 [History Last Taken 12/07/22] docusate sodium 100 mg capsule (Stool Softener) 100 mg PO DAILY 02/26/18 [History Last Taken 12/07/22] fluticasone propionate 50 mcg/actuation nasal spray,suspension (Flonase Allergy Relief) 1 spray intranasal DAILY PRN Allergies 02/26/18 [History Last Taken 12/07/22] guaifenesin 600 mg tablet, extended release 12 hr (Mucinex) 600 mg PO Q12H PRN Cough 02/26/18 [History Last Taken 12/08/22] magnesium oxide 500 mg capsule 250 mg PO BID 02/26/18 [History Last Taken 12/07/22] zoledronic acid 5 mg/100 mL in mannitol 5 %-water intravenous piggybck (Reclast)1 dose .Route .Q2YEAR 02/26/18 [History Last Taken Unknown] coenzyme Q10 100 mg capsule (Co Q-10) 200 mg PO BID 02/27/18 [History Last Taken 12/07/22] metoprolol tartrate 25 mg tablet 12.5 mg PO DAILY PRN heart flutter 02/20/19 [History Last Taken 12/07/22] simethicone 180 mg capsule (Gas-X Ultra-Strength) 180 mg PO BID PRN Gastric Reflux 02/26/20 [History Last Taken 12/07/22] hydroxyurea 500 mg capsule 500 mg PO DAILY 09/14/22 [History Last Taken 12/07/22] cetirizine 10 mg tablet (Zyrtec) 10 mg PO DAILY ALLERGIES 12/08/22 [History Last Taken 12/08/22] ibuprofen 200 mg tablet 400 mg PO Q6H PRN Pain 12/08/22 [History Last Taken 12/07/22] acetaminophen 500 mg tablet 1,000 mg (2 x 500 mg) PO Q8 6 days #36 tabs 12/09/22[Rx Last Taken Unknown] hydrocodone-acetaminophen 5-325mg 5mg-325mg 1 tab PO Q12H PRN PRN PAIN 6-10 01/07/23 [History Last Taken Unknown] meclizine 25 mg chewable tablet (Antivert) 25 mg PO DAILY PRN PRN dizziness 01/07/23 [History Last Taken Unknown] multivitamin-ferrous fumarate-folic acid 18 mg-400 mcg tablet (Centrum Women) 1 tab PO DAILY 01/07/23 [History Last Taken Unknown] vitamin A 2,500 unit-vit C 100 mg-biotin 2,500 skf-tdkj-oyerpw capsule (Qamc-Vzjh-Udjs (vit A,G-cljgjr-Oq-Cu)) cap PO BID 01/07/23 [History Last Taken Unknown] Allergy/AdvReac Type Severity Reaction Status Date / Time amoxicillin AdvReac Upset Verified 12/08/22 12:45 Stomach atorvastatin [From Lipitor] AdvReac myalgias Verified 12/08/22 12:45 ciprofloxacin [From Cipro] AdvReac Itching Verified 12/08/22 12:45 clarithromycin [From Biaxin] AdvReac Vomiting Verified 12/08/22 12:45 thiopental [From Pentothal] AdvReac Nausea Verified 12/08/22 12:45 Family History Brother CAD (coronary artery disease) Diabetes Father Diabetes Myocardial infarction Surgical History H/O colectomy H/O shoulder surgery H/O total knee replacement (06/2018) History of appendectomy History of carpal tunnel release History of right and left heart catheterization (09/22/13) History of right hip replacement History of total left hip replacement Hx of cholecystectomy S/P tendon repair Social History Smoking Status: Never smoker alcohol intake: never ROS ROS ED Constitutional Constitutional ED: Denies chills or fever(s) Eyes Eyes: Denies change in vision ENT ENT ED: Denies sore throat Cardiovascular Cardiovascular: Reports racing heartbeat; Denies chest pain or palpitations Respiratory/Chest Respiratory/Chest: Denies cough or dyspnea Gastrointestinal Gastrointestinal: Reports diarrhea, melena, nausea and vomiting; Denies abdominal pain Genitourinary Genitourinary ED: Denies dysuria Musculoskeletal Musculoskeletal: Denies myalgias Integumentary Denies rash Neurologic Neurologic: Reports weakness and other Details: Positive lightheadedness/dizziness ; Denies headache(s) Hematologic/Lymphatic Hematologic/Lymphatic: Denies easy bleeding or easy bruising EXAM Physical Exam Const Vital Signs: 01/07/23 22:29 01/07/23 23:06 01/08/23 00:03 Temperature 98.0 F 97.6 F L Temperature Source Temporal Oral Pulse Rate 92 120 H 109 H Respiratory Rate 16 16 20 H Blood Pressure 99/45 L 118/59 L 147/54 H Blood Pressure Mean 63 78 85 Blood Pressure Source Monitor Monitor Blood Pressure Position Semi-Fowlers Semi-Fowlers Blood Pressure Location Right Arm Left Arm Pulse Ox 100 94 100 Oxygen Delivery Method Room Air Room Air Nasal Cannula Oxygen Flow Rate (L/min) 2 01/08/23 00:06 01/08/23 00:41 01/08/23 00:52 Temperature 97.9 F 97.5 F L Temperature Source Oral Oral Pulse Rate 114 H 121 H 123 H Respiratory Rate 17 13 26 H Blood Pressure 147/54 H 126/57 H 119/60 Blood Pressure Mean 85 80 79 Blood Pressure Source Monitor Blood Pressure Position Semi-Fowlers Blood Pressure Location Left Arm Pulse Ox 100 100 99 Oxygen Delivery Method Nasal Cannula Nasal Cannula Nasal Cannula Oxygen Flow Rate (L/min) 2 2 01/08/23 00:56 01/08/23 01:10 01/08/23 01:11 Temperature 97.2 F L 97.2 F L 97.2 F L Temperature Source Oral Oral Oral Pulse Rate 125 H 122 H 122 H Respiratory Rate 23 H 10 L 11 L Blood Pressure 106/57 L 106/57 L 106/57 L Blood Pressure Mean 73 73 73 Blood Pressure Source Monitor Blood Pressure Position Semi-Fowlers Blood Pressure Location Left Arm Pulse Ox 100 99 99 Oxygen Delivery Method Nasal Cannula Nasal Cannula Nasal Cannula Oxygen Flow Rate (L/min) 2 2 Positive well nourished and well developed General Appearance ED: well developed and pallor HEENT Reports moist mucous membranes HEENT Narrative: No active bleeding or dried blood noted in the posterior pharynx Eyes PERRL and EOMs intact bilaterally General Eye ED: Yes pale conjunctiva Neck supple Resp normal respiratory effort and clear to auscultation bilaterally Cardio regular rhythm Rate: tachycardic and other Other Details: Tachycardic rate with regular rhythm radial pulses are plus 2 out of 4 bilaterally are equal and symmetric GI non-tender and non-distended GI Narrative: Patient has reducible ventral hernia present. No guarding or rigidity. No pulsatile mass or fluid wave. Auscultation: normoactive bowel sounds Palpation: soft Narrative: Rectal tone is normal, stool is melanotic in color and Hemoccult positive. Extremity normal to inspection Neuro oriented x3 and CN's II-XII intact bilaterally Sensorium / Orientation: alert Psych mental status grossly normal Skin Skin Narrative: Skin is pale in color with capillary refill at 3 seconds General Skin Exam: pallor MDM MDM MDM Narrative Medical decision making narrative: Patient presented to the ER mildly tachycardic and hypotensive. She reported bouts of vomiting and diarrhea that was bloody in nature. She states that she does not have a history of bleeding disorder or take blood thinners but she has been taking hydrocodone Tylenol and ibuprofen repeatedly for the last 2 to 3 weeks because of her sacral fracture. I feel this most likely led to the cause of her GI bleed. As she also reported lightheadedness and dizziness there is concern that this could be related to a ruptured aneurysm and therefore noncontrast CT was obtained. CT revealed no acute findings. A CT of the abdomen and pelvis was also obtained to check for the cause of her bleed but none was elicited. As her stool was melanotic patient was started on Protonix bolus and drip. As she was tachycardic and borderline hypotensive with report of hematemesis and hematochezia I did elect to start with trauma blood and then add 2 more units of crossmatched blood. Blood work showed the patient's blood volume to drop by approximately half. As blood volume was replaced patient's color improved and blood pressure stabilized. The patient had no further bouts of hematochezia or hematemesis while in the ER but with the large drop in her blood volume and need for potential EGD and colonoscopy medicine was contacted and they do agree to accept the patient at this time. Plan of care was discussed with the patient and family and both are agreeable to it. History & Record Review Discussion w/independent historian: Patient and Family Lab Data Attestation: I reviewed the patient's lab results. Labs: Laboratory Results - last 24 hr 01/07/23 01/07/23 22:50 22:50 WBC 15.8 H RBC 2.15 L Hgb 7.6 L Hct 22.8 L MCV 106.0 H MCH 35.3 H MCHC 33.3 RDW Std Deviation 59.4 H RDW Coeff of Cyril 15.2 H Plt Count 398 MPV 8.9 Immature Gran % (Auto) 0.700 Neut % (Auto) 75.8 H Lymph % (Auto) 13.2 L [place] % (Auto) 9.2 Eos % (Auto) 0.8 Baso % (Auto) 0.3 Absolute Neuts (auto) 12.0 H Absolute Lymphs (auto) 2.09 Nucleated RBC % 0 PT 14.3 INR 1.1 APTT 26.5 Sodium 132 L Potassium 4.2 Chloride 103 Carbon Dioxide 25.0 Anion Gap 4 L BUN 33 H Creatinine 0.58 Estim Creat Clear Calc 28.47 Est GFR (MDRD) Af Amer 127 Est GFR (MDRD) Non-Af 105 BUN/Creatinine Ratio 57.3 H Glucose 207 H Calcium 8.2 L Total Bilirubin 0.30 Direct Bilirubin 0.09 AST 13 L ALT 17 Alkaline Phosphatase 89 Total Protein 4.6 L Albumin 2.3 L Globulin 2.3 Antibody Screen NEGATIVE Crossmatch See Detail See Detail Radiography Diagnostic Testing: Clinical Impression(s) from Imaging Studies Abdomen/Pelvis CTA 01/07/23 22:47 IMPRESSION: No active GI bleeding identified, as discussed above. Interval development of sacral insufficiency fracture. Large cystic mass again seen arising in the region of the pancreatic head. Minimal colonic diverticulosis without evidence for acute diverticulitis. Electronically Signed: Papi Waggoner MD at 0:31 EDT , Brain CT 01/07/23 22:47 IMPRESSION: Atrophy and chronic small vessel ischemic changes. No acute findings in the head/brain. Electronically Signed: Papi Waggoner MD at 0:11 EDT , Chest X-Ray 01/07/23 22:47 IMPRESSION: No definite acute cardiopulmonary disease or significant change compared to prior study. Electronically Signed: Greg Shultz MD at 23:33 EDT , Chest x-ray interpreted by the emergency medicine physician reveals no acute infiltrate pneumothorax pleural effusion or free air Management Discussion w/another healthcare provider: Hospitalist Discharge Plan Dx/Rx/DC Orders Clinical Impression: Acute blood loss anemia, Acute GI bleeding Disposition Disposition: Acute Care Hospital [facility] What to do if you have Problems For any increased pain, shortness of breath, bleeding, nausea or vomiting, chestpain, or any unexpected problems, contact your Primary Care Provider. Call [facility] ([phone]) or report to the closest Emergency Room. Call 911 if necessary. 01/08/23 0144 <Electronically signed by Homer Beaulieu DO> Cosigner Signature (if applicable): CC: Dr. Cody Vanegas, ~ Signed [facility] Work Phone: [phone]) 901-198107-10-2023 Discharge summary Author Homer Beaulieu [facility] January 08, 2023 1:44am Note Date/Time January 07, 2023 10:57 pm [facility] Medical Records Department [address] [place] [address] Emergency Department Summary 01/07/23 MR#: [id number] Acct: [id number] Name: KELLIE HUDSON Rep #:[id number] : 1935 87 From: Homer Beaulieu DO PCP: Dr. Cody Michael, DO Status:ADM IN Location: [facility] [id number] HPI History of Present Illness Chief Complaint: GI Bleed Informant: patient and family Narrative Narrative: Patient is a 87-year-old female with past medical history hyperlipidemia and recent coccyx/sacral fracture. She states that because of the fracture she has been having difficulty walking for the past few weeks and had with the pain has been taking hydrocodone Tylenol and ibuprofen throughout the day. She states she has been doing this for 2 to 3 weeks. She states that this evening essentially just prior to arrival in the ER that she fell like she was going to get sick and went to the bathroom and had a bout of vomiting and diarrhea and both are bloody in nature. She denies any history of bleeding disorder or bloodthinner use and states that since the onset of the symptoms she is also felt lightheaded like she is going to pass out. She denies any abdominal pain or chest pain associated with this. She does state that she is a DNR Comfort Care arrest no intubation PFSH [facility] Medical History Bilateral shoulder pain COPD (chronic obstructive pulmonary disease) Depression Fall GERD (gastroesophageal reflux disease) Goiter Hemorrhoids Hyperlipidemia Idiopathic thrombocythemia Left hip pain Macular degeneration Nodule of left lung Nonrheumatic tricuspid valve regurgitation Osteoarthritis Osteoporosis Pancreatic cyst Pericardial effusion Right hip pain Right knee pain Secondary pulmonary arterial hypertension Vertigo Vitamin D deficiency Home Medications albuterol sulfate 90 mcg/actuation aerosol inhaler (Ventolin HFA) 1 puff inhalation Q6H PRN Sob &/Or Wheezing 02/26/18 [History Last Taken Unknown] calcium phosphate 250 mg-vit D3 12.5 mcg (500 unit) chewable tablet (Citracal-S4Lzothga) 1 tab PO DAILY 02/26/18 [History Last Taken 12/07/22] cholecalciferol (vitamin D3) 25 mcg (1,000 unit) capsule 1,000 unit PO DAILY 02/26/18 [History Last Taken 12/07/22] docusate sodium 100 mg capsule (Stool Softener) 100 mg PO DAILY 02/26/18 [History Last Taken 12/07/22] fluticasone propionate 50 mcg/actuation nasal spray,suspension (Flonase Allergy Relief) 1 spray intranasal DAILY PRN Allergies 02/26/18 [History Last Taken 12/07/22] guaifenesin 600 mg tablet, extended release 12 hr (Mucinex) 600 mg PO Q12H PRN Cough 02/26/18 [History Last Taken 12/08/22] magnesium oxide 500 mg capsule 250 mg PO BID 02/26/18 [History Last Taken 12/07/22] zoledronic acid 5 mg/100 mL in mannitol 5 %-water intravenous piggybck (Reclast)1 dose .Route .Q2YEAR 02/26/18 [History Last Taken Unknown] coenzyme Q10 100 mg capsule (Co Q-10) 200 mg PO BID 02/27/18 [History Last Taken 12/07/22] metoprolol tartrate 25 mg tablet 12.5 mg PO DAILY PRN heart flutter 02/20/19 [History Last Taken 12/07/22] simethicone 180 mg capsule (Gas-X Ultra-Strength) 180 mg PO BID PRN Gastric Reflux 02/26/20 [History Last Taken 12/07/22] hydroxyurea 500 mg capsule 500 mg PO DAILY 09/14/22 [History Last Taken 12/07/22] cetirizine 10 mg tablet (Zyrtec) 10 mg PO DAILY ALLERGIES 12/08/22 [History Last Taken 12/08/22] ibuprofen 200 mg tablet 400 mg PO Q6H PRN Pain 12/08/22 [History Last Taken 12/07/22] acetaminophen 500 mg tablet 1,000 mg (2 x 500 mg) PO Q8 6 days #36 tabs 12/09/22[Rx Last Taken Unknown] hydrocodone-acetaminophen 5-325mg 5mg-325mg 1 tab PO Q12H PRN PRN PAIN 6-10 01/07/23 [History Last Taken Unknown] meclizine 25 mg chewable tablet (Antivert) 25 mg PO DAILY PRN PRN dizziness 01/07/23 [History Last Taken Unknown] multivitamin-ferrous fumarate-folic acid 18 mg-400 mcg tablet (Centrum Women) 1 tab PO DAILY 01/07/23 [History Last Taken Unknown] vitamin A 2,500 unit-vit C 100 mg-biotin 2,500 qla-ttpt-tezzno capsule (Jcot-Mxdh-Sbti (vit A,O-jshjlm-Hl-Cu)) cap PO BID 01/07/23 [History Last Taken Unknown] Allergy/AdvReac Type Severity Reaction Status Date / Time amoxicillin AdvReac Upset Verified 12/08/22 12:45 Stomach atorvastatin [From Lipitor] AdvReac myalgias Verified 12/08/22 12:45 ciprofloxacin [From Cipro] AdvReac Itching Verified 12/08/22 12:45 clarithromycin [From Biaxin] AdvReac Vomiting Verified 12/08/22 12:45 thiopental [From Pentothal] AdvReac Nausea Verified 12/08/22 12:45 Family History Brother CAD (coronary artery disease) Diabetes Father Diabetes Myocardial infarction Surgical History H/O colectomy H/O shoulder surgery H/O total knee replacement (06/2018) History of appendectomy History of carpal tunnel release History of right and left heart catheterization (09/22/13) History of right hip replacement History of total left hip replacement Hx of cholecystectomy S/P tendon repair Social History Smoking Status: Never smoker alcohol intake: never ROS ROS ED Constitutional Constitutional ED: Denies chills or fever(s) Eyes Eyes: Denies change in vision ENT ENT ED: Denies sore throat Cardiovascular Cardiovascular: Reports racing heartbeat; Denies chest pain or palpitations Respiratory/Chest Respiratory/Chest: Denies cough or dyspnea Gastrointestinal Gastrointestinal: Reports diarrhea, melena, nausea and vomiting; Denies abdominal pain Genitourinary Genitourinary ED: Denies dysuria Musculoskeletal Musculoskeletal: Denies myalgias Integumentary Denies rash Neurologic Neurologic: Reports weakness and other Details: Positive lightheadedness/dizziness ; Denies headache(s) Hematologic/Lymphatic Hematologic/Lymphatic: Denies easy bleeding or easy bruising EXAM Physical Exam Const Vital Signs: 01/07/23 22:29 01/07/23 23:06 01/08/23 00:03 Temperature 98.0 F 97.6 F L Temperature Source Temporal Oral Pulse Rate 92 120 H 109 H Respiratory Rate 16 16 20 H Blood Pressure 99/45 L 118/59 L 147/54 H Blood Pressure Mean 63 78 85 Blood Pressure Source Monitor Monitor Blood Pressure Position Semi-Fowlers Semi-Fowlers Blood Pressure Location Right Arm Left Arm Pulse Ox 100 94 100 Oxygen Delivery Method Room Air Room Air Nasal Cannula Oxygen Flow Rate (L/min) 2 01/08/23 00:06 01/08/23 00:41 01/08/23 00:52 Temperature 97.9 F 97.5 F L Temperature Source Oral Oral Pulse Rate 114 H 121 H 123 H Respiratory Rate 17 13 26 H Blood Pressure 147/54 H 126/57 H 119/60 Blood Pressure Mean 85 80 79 Blood Pressure Source Monitor Blood Pressure Position Semi-Fowlers Blood Pressure Location Left Arm Pulse Ox 100 100 99 Oxygen Delivery Method Nasal Cannula Nasal Cannula Nasal Cannula Oxygen Flow Rate (L/min) 2 2 01/08/23 00:56 01/08/23 01:10 01/08/23 01:11 Temperature 97.2 F L 97.2 F L 97.2 F L Temperature Source Oral Oral Oral Pulse Rate 125 H 122 H 122 H Respiratory Rate 23 H 10 L 11 L Blood Pressure 106/57 L 106/57 L 106/57 L Blood Pressure Mean 73 73 73 Blood Pressure Source Monitor Blood Pressure Position Semi-Fowlers Blood Pressure Location Left Arm Pulse Ox 100 99 99 Oxygen Delivery Method Nasal Cannula Nasal Cannula Nasal Cannula Oxygen Flow Rate (L/min) 2 2 Positive well nourished and well developed General Appearance ED: well developed and pallor HEENT Reports moist mucous membranes HEENT Narrative: No active bleeding or dried blood noted in the posterior pharynx Eyes PERRL and EOMs intact bilaterally General Eye ED: Yes pale conjunctiva Neck supple Resp normal respiratory effort and clear to auscultation bilaterally Cardio regular rhythm Rate: tachycardic and other Other Details: Tachycardic rate with regular rhythm radial pulses are plus 2 out of 4 bilaterally are equal and symmetric GI non-tender and non-distended GI Narrative: Patient has reducible ventral hernia present. No guarding or rigidity. No pulsatile mass or fluid wave. Auscultation: normoactive bowel sounds Palpation: soft Narrative: Rectal tone is normal, stool is melanotic in color and Hemoccult positive. Extremity normal to inspection Neuro oriented x3 and CN's II-XII intact bilaterally Sensorium / Orientation: alert Psych mental status grossly normal Skin Skin Narrative: Skin is pale in color with capillary refill at 3 seconds General Skin Exam: pallor MDM MDM MDM Narrative Medical decision making narrative: Patient presented to the ER mildly tachycardic and hypotensive. She reported bouts of vomiting and diarrhea that was bloody in nature. She states that she does not have a history of bleeding disorder or take blood thinners but she has been taking hydrocodone Tylenol and ibuprofen repeatedly for the last 2 to 3 weeks because of her sacral fracture. I feel this most likely led to the cause of her GI bleed. As she also reported lightheadedness and dizziness there is concern that this could be related to a ruptured aneurysm and therefore noncontrast CT was obtained. CT revealed no acute findings. A CT of the abdomen and pelvis was also obtained to check for the cause of her bleed but none was elicited. As her stool was melanotic patient was started on Protonix bolus and drip. As she was tachycardic and borderline hypotensive with report of hematemesis and hematochezia I did elect to start with trauma blood and then add 2 more units of crossmatched blood. Blood work showed the patient's blood volume to drop by approximately half. As blood volume was replaced patient's color improved and blood pressure stabilized. The patient had no further bouts of hematochezia or hematemesis while in the ER but with the large drop in her blood volume and need for potential EGD and colonoscopy medicine was contacted and they do agree to accept the patient at this time. Plan of care was discussed with the patient and family and both are agreeable to it. History & Record Review Discussion w/independent historian: Patient and Family Lab Data Attestation: I reviewed the patient's lab results. Labs: Laboratory Results - last 24 hr 01/07/23 01/07/23 22:50 22:50 WBC 15.8 H RBC 2.15 L Hgb 7.6 L Hct 22.8 L MCV 106.0 H MCH 35.3 H MCHC 33.3 RDW Std Deviation 59.4 H RDW Coeff of Cyril 15.2 H Plt Count 398 MPV 8.9 Immature Gran % (Auto) 0.700 Neut % (Auto) 75.8 H Lymph % (Auto) 13.2 L [place] % (Auto) 9.2 Eos % (Auto) 0.8 Baso % (Auto) 0.3 Absolute Neuts (auto) 12.0 H Absolute Lymphs (auto) 2.09 Nucleated RBC % 0 PT 14.3 INR 1.1 APTT 26.5 Sodium 132 L Potassium 4.2 Chloride 103 Carbon Dioxide 25.0 Anion Gap 4 L BUN 33 H Creatinine 0.58 Estim Creat Clear Calc 28.47 Est GFR (MDRD) Af Amer 127 Est GFR (MDRD) Non-Af 105 BUN/Creatinine Ratio 57.3 H Glucose 207 H Calcium 8.2 L Total Bilirubin 0.30 Direct Bilirubin 0.09 AST 13 L ALT 17 Alkaline Phosphatase 89 Total Protein 4.6 L Albumin 2.3 L Globulin 2.3 Antibody Screen NEGATIVE Crossmatch See Detail See Detail Radiography Diagnostic Testing: Clinical Impression(s) from Imaging Studies Abdomen/Pelvis CTA 01/07/23 22:47 IMPRESSION: No active GI bleeding identified, as discussed above. Interval development of sacral insufficiency fracture. Large cystic mass again seen arising in the region of the pancreatic head. Minimal colonic diverticulosis without evidence for acute diverticulitis. Electronically Signed: Papi Waggoner MD at 0:31 EDT , Brain CT 01/07/23 22:47 IMPRESSION: Atrophy and chronic small vessel ischemic changes. No acute findings in the head/brain. Electronically Signed: Papi Waggoner MD at 0:11 EDT , Chest X-Ray 01/07/23 22:47 IMPRESSION: No definite acute cardiopulmonary disease or significant change compared to prior study. Electronically Signed: Greg Shultz MD at 23:33 EDT , Chest x-ray interpreted by the emergency medicine physician reveals no acute infiltrate pneumothorax pleural effusion or free air Management Discussion w/another healthcare provider: Hospitalist Discharge Plan Dx/Rx/DC Orders Clinical Impression: Acute blood loss anemia, Acute GI bleeding Disposition Disposition: Acute Care Hospital [facility] What to do if you have Problems For any increased pain, shortness of breath, bleeding, nausea or vomiting, chestpain, or any unexpected problems, contact your Primary Care Provider. Call [facility] ([phone]) or report to the closest Emergency Room. Call 911 if necessary. 01/08/23 0144 <Electronically signed by Homer Beaulieu DO> Cosigner Signature (if applicable): CC: Dr. Cody Vanegas, ~ Signed [facility] Work Phone: 1(599) 845-204003-08-2023 Miscellaneous Notes* Telephone Encounter - Syeda Song LPN - 09/06/2022 10:27 AM EST Please send Rx to pharmacy as discussed at yesterday's office visit. Syeda Song LPN documented in [place] encounterCent[place]03-07-2023 History of Present illness Narrative* Javier Ku MD - 09/05/2022 3:57 PM EST Images from the original note were not [...] (98.1 F) (Temporal) Ht 153.7 cm (5' 0.5) Wt 58.1 kg (128 lb) BMI 24.59 [...] questions and these were answered in detail. Javier Ku MD cc: Jair Vanegas DO documented in this encounterCenterville03-07-2023 Miscellaneous Notes* Telephone Encounter - Malena Pryor LPN - 09/05/2022 2:26 PM EST faxed. Malena Pryor LPN * Telephone Encounter - Malena Pryor LPN - 08/28/2022 3:44 PM EST Will fax after she sees Dr Ku on 09/05/21. Malena Pryor LPN * Telephone Encounter - Malena Pryor LPN - 08/25/2022 9:34 AM EST Not read yet. Malena Pryor LPN * Telephone Encounter - Barbara Smith - 08/25/2022 9:19 AM EST Patient asking for recent CT results to be faxed to her PCP Dr. Cody Vanegas documented in this encounterCenterville01-30-2023 Miscellaneous Notes* Telephone Encounter - Malena Pryor LPN - 07/31/2022 9:59 AM EST spoke with patient. She had questions about the use of her medication due to insurance coverage. The assembler adjuster was denying her due to hydrea. Questions answered. No further action required. Malena Pryor LPN * Telephone Encounter - Genesis Machado Pss - 07/31/2022 9:34 AM EST Patient is calling in regards to the Hydrea mediation, she states she is on this due to high platelet count prior to a hip surgery in 2012. 2 yrs ago she did have a pancrease biopsy and choose to nothave the surgery that was offered. But she is wondering if this medication is keeping her from getting cancer in this cyst. As there was a chance of cancer if she did not do the surgery. And is therea chance of cancer if she would stop the medication. Please advise the patient as she is also asking if there is any other medication that she could take to help keep her platelets down. documented in this encounterCenterville11-22-2010 History of Past illness Narrative* Problem Noted [...] of this encounter (statuses as of 03/21/2022) [place] History of Past illness Narrative* Problem Noted [...] of this encounter (statuses as of 07/31/2022) [place] History of Past illness Narrative* Problem Noted [...] of this encounter (statuses as of 09/05/2022) [place] History of Past illness Narrative* Problem Noted [...] of this encounter (statuses as of 09/06/2022) [place] History of Past illness Narrative* Problem Noted [...] of this encounter (statuses as of 09/06/2022) [place] History of Past illness Narrative* Problem Noted [...] skin 06/04/2006 11/10/2012 Dyschromia, unspecified 06/04/2006 11/03/19 documented as of this encounter (statuses as of 12/06/2022) [place] History of Past illness Narrative* Problem Noted Date Diagnosed Date Resolved Date Skin tags 05/23/2010 11/10/2012 Open wound(s) (multiple) of unspecified site(s), without mention of complication 11/03/2009 11/03/2011 Neoplasm of uncertain behavior of skin 09/02/2009 11/03/2011 Other and unspecified malign ant neoplasm of skin of other and unspecified parts of face 09/02/2009 11/10/2012 ACTINIC DAMAGE///CHR SOLAR SKIN DAMAGE NOS 07/08/2008 11/03/2011 SOLAR LENTIGINES///DYSCHROMIA OTHER 07/08/2008 11/03/2011 Scar condition and fibrosis of skin 06/04/2006 11/10/2012 Dyschromia, unspecified 06/04/200610/2011 documented as of this encounter (statuses as of 09/18/2023) [place] [facility] noteNo assessment information availableWMercy Health 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 Personal history of other malignant neoplasm of skin documented in this encounter [facility] [facility]* Diagnosis Onset Date Resolution Status Bilateral shoulder pain acut e Right hip pain acute Right knee pain acute Bilateral shoulder pain acut e Right hip pain acute [facility] Work Phone: evaluation note* Diagnosis 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 Cyst and pseudocyst of pancreas Personal history of other malignant neoplasm of skin documented in this encounter [facility] [facility]* Diagnosis Onset Date Resolution Status Bilateral shoulder pain acut e Right hip pain acute Right knee pain acute Bilateral shoulder pain acut e Right hip pain acute Closed sacral fracture acute Acute blood loss anemia acut e Acute GI bleeding acute [facility] Work Phone: Evaluation note* Diagnosis Onset Date Resolution Status Bilateral shoulder pain acut e Right hip pain acute Closed sacral fracture acute Acute blood loss anemia acut e Acute GI bleeding acute Closed sacral fracture acute Right hip pain acute Thrombocytosis acute [facility] Work Phone: Evaluation note* Diagnosis Onset Date Resolution Status Bilateral shoulder pain acut e Right hip pain resolved Closed sacral fracture resol alana Thrombocytosis acute Acute blood loss anemia reso lved Acute GI bleeding resolved Closed sacral fracture resol alana Right hip pain resolved [facility] Work Phone: Evaluation note* Diagnosis Onset Date Resolution Status Closed sacral fracture resol alana Thrombocytosis acute Acute blood loss anemia reso lved Acute GI bleeding resolved Closed sacral fracture resol alana Right hip pain resolved [facility] Work Phone: Evaluation note* Diagnosis Onset Date Resolution Status GI bleeding acute [facility] Work Phone: Evaluation note* Diagnosis Onset Date Resolution Status GI bleeding acute Multiple thyroid nodules acu te [facility] Work Phone: Evaluation note* Diagnosis Pancreas cyst- Primary Cyst and pseudocyst of pancreas [facility]* Diagnosis Pancreatic cyst- Primary Cyst and pseudocyst of pancreas documented in this [facility]* Diagnosis Preop examination- Primary Preoperative examination, unspecified Pancreatic cyst Cyst and pseudocyst of pancreas Essential thrombocytosis (HCC) Essential thrombocythemia Pancreas cyst- Primary Cyst and pseudocyst of pancreas documented in this encounter [facility] note* Diagnosis Preop examination- Primary Preoperative examination, unspecified Pancreatic cyst (HCC) Cyst and pseudocyst of pancreas Essential thrombocytosis (HCC) 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 You can buy over the counter lidocaine patches 4%. They are called peg keyes. Follow up with your doctors.[facility] Work Phone: Hospital Discharge instructions Additional Instructions I would recommend that you call the surgeon that drainage or pseudocyst on your pancreas and advised them that it has reaccumulated to about the same size. There is a strong chance that the cyst will need to have more definitive care. However at this time not seeing evidence of obstruction and do not feel that hospitalization is needed.[facility] Work Phone: Reason for referral (narrative)* Outpatient Procedure (Routine) - New Request Specialty Diagnoses / Procedures Referred By Dave cook Referred To Contact [facility] Diagnoses Pancreatic cyst Procedures EGD - THERAPEUTIC, EUS, OR TUBE INTERVENTIONS EDG US EXAM SURGICAL ALTER STOM DUODENUM/JEJUNUM Sd Rolbero MD 1 [facility] [employer] [address] [address] [facility] [address] [address] Referral ID Status Reason Start Date Expiration Date Visits Requested Visits Authorized [id number] New Request Auto-Generat ed Referral 07/25/2024 06/03/2025 1 1 * Outpatient Procedure (Routine) - New Request Specialty Diagnoses / Procedures Referred By Dave cook Referred To Contact [facility] Diagnoses Pancreatic cyst Procedures EGD DIAGNOSTIC ESOPHAGOGASTRODUODENOSC OPY TRANSORAL DIAGNOSTIC Sd Roblero MD [address] [place] [address] [facility] [address] [address] Referral ID Status Reason Start Date Expiration Date Visits Requested Visits Authorized [id number] New Request Auto-Generat ed Referral 07/25/2024 06/03/2025 1 1 [facility] for referral (narrative)No reason for referral information availableWMercy Health St[facility] Work Phone: Summary Purpose Family History No Family History Records Found Relationship Condition Age at Onset Recorded Date/T sherif brother Coronary artery disease Unknown Diabetes mellitus Unknown father Diabetes mellitus Unknown Myocardial infarction Unknown Advance Directives No Advanced Directives Records Found Advance Directive Response Recorded Date/ Time Living Will Yes April 20 6:12pm Power of Track Grinder Yes April 20, 2018 6:12pm Advance Directive Response Recorded Date/ Time Living Will Yes April 20 5:12pm Power of Track Grinder Yes April 20, 2018 5:12pm Advance Directive Response Recorded Date/ Time Name of Medical Power of Track Grinder REINALDO TRISTAN December 02, 2022 5:10pm Living Will Yes December 02, 2022 5 :10pm Power of Track Grinder Yes December 02, 2022 5:10pm Advance Directive Response Recorded Date/ Time Name of Medical Power of Track Grinder REINALDO TRISTAN December 02, 2022 5:10pm Name of Medical Power of Track Grinder Reinaldo Hudson December 08, 2022 6:10pm Name of Medical Power of Track Grinder her th at just passed January 07, 2023 11:24pm Living Will Yes January 07, 2023 1 1:24pm Power of Track Grinder Yes January 07, 2023 11:24pm Advance Directive Response Recorded Date/ Time Name of Medical Power of Track Grinder REINALDO HUDSON December 02, 2022 5:10pm Name of Medical Power of Track Grinder Reinaldo Manriqueztony December 08, 2022 6:10pm Name of Medical Power of Track Grinder Reinaldo Hudson January 08, 2023 2:05am Living Will Yes January 08, 2023 2:05am Power of Track Grinder Yes January 08 2:05am Advance Directive Response Recorded Date/ Time Living Will Yes January 08, 2023 1:05am Power of Track Grinder Yes January 08 1:05am Advance Directive Response Recorded Date/ Time Living Will Yes January 08, 2023 2:05am Power of Track Grinder Yes January 08 2:05am Documents on File Type Date Recorded 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 Expl anation Advance Directive(s) 07/25/2024 8:52 AM Advance Directive Response Recorded Date/ Time Living Will Yes January 08, 2023 1:05am Power of Track Grinder Yes January 08 1:05am Living Will No September 05, 2024 7:22am Power of Track Grinder No September 05 7:22am Chief Complaint and Reason for Visit Chief Complaint SCREENING Chief Complaint Bilat shoulders Rm 1 xray Reason for Visit Bilateral shoulder p ain Chief Complaint RIGHT KNEE Rm 2 BL HIPS/PELVIS RM 1 fall, right hip pain Reason for Visit Bilateral shoulder p ain Right hip pain Right knee pain Bilateral shoulder pain Right hip pain Chief Complaint RIGHT KNEE Rm 2 BL HIPS/PELVIS RM 1 fall, right hip pain BACK PAIN, SACRAL BONE FRACTURE BACK PAIN, SACRAL BONE FRACTURE BACK PAIN, SACRAL BONE FRACTURE ABLA Reason for Visit Bilateral shoulder p ain Right hip pain Right knee pain Bilateral shoulder pain Right hip pain Closed sacral fracture Acute blood loss anemia Acute GI bleeding Chief Complaint BL HIPS/PELVIS RM 1 fall, right hip pain BACK PAIN, SACRAL BONE FRACTURE BACK PAIN, SACRAL BONE FRACTURE BACK PAIN, SACRAL BONE FRACTURE ABLA ABLA ABLA ABLA ABLA ABLA ABLA ABLA ABLA ABLA ABLA Reason for Visit Bilateral shoulder p ain Right hip pain Closed sacral fracture Acute blood loss anemia Acute GI bleeding Closed sacral fracture Right hip pain Thrombocytosis Chief Complaint BL HIPS/PELVIS RM 1 fall, right hip pain BACK PAIN, SACRAL BONE FRACTURE BACK PAIN, SACRAL BONE FRACTURE BACK PAIN, SACRAL BONE FRACTURE ABLA ABLA ABLA ABLA ABLA ABLA ABLA ABLA ABLA ABLA ABLA LABWORK ADMISSION EXAM ADMISSION EXAM HALF-WAY LABWORK HALF-WAY LABWORK HALF-WAY LABWORK Reason for Visit Bilateral shoulder p ain Right hip pain Closed sacral fracture Thrombocytosis Acute blood loss anemia Acute GI bleeding Closed sacral fracture Right hip pain Chief Complaint fall, right hip pain BACK PAIN, SACRAL BONE FRACTURE BACK PAIN, SACRAL BONE FRACTURE BACK PAIN, SACRAL BONE FRACTURE ABLA ABLA ABLA ABLA ABLA ABLA ABLA ABLA ABLA ABLA ABLA LABWORK ADMISSION EXAM ADMISSION EXAM HALF-WAY LABWORK HALF-WAY LABWORK HALF-WAY LABWORK RECLAST Reason for Visit Closed sacral fractu re Thrombocytosis Acute blood loss anemia Acute GI bleeding Closed sacral fracture Right hip pain Chief Complaint RECLAST STANDING ORDER Chief Complaint STANDING ORDER H FU Reason for Visit GI bleeding Chief Complaint STANDING ORDER H FU F/U LT THYROID NODULE Reason for Visit GI bleeding Chief Complaint STANDING ORDER H FU F/U LT THYROID NODULE THYROID NODULES FNA THYROID NODULE X2 Reason for Visit GI bleeding Multiple thyroid nodules Chief Complaint H FU F/U LT THYROID NODULE THYROID NODULES FNA THYROID NODULE X2 ADD HIP XRAY Reason for Visit GI bleeding Multiple thyroid nodules Chief Complaint Admit Date SCREENING, ON RECLAST May 08, 2024 9:56am UNSPECIFIED MONONEUROPATHY OF B/L LIMBS May 27, 2024 9:52am UNSPECIFIED MONONEUROPATHY OF B/L LIMBS May 27, 2024 10:51am NODULE August 20, 2024 12:41pm CP September 05, 2024 7:14 am Additional Source Comments INFORMATION SOURCE (unrecogn ized section and content) DATE CREATED AUTHOR 12/18/2017 [facility] DATE CREATED AUTHOR AUTHOR'S ORGANIZ ATION 12/21/2017 [facility] DATE CREATED AUTHOR AUTHOR'S ORGANIZ ATION 07/27/2018 [facility] DATE CREATED AUTHOR AUTHOR'S ORGANIZ ATION 11/16/2019 [facility] ([place]) DATE CREATED AUTHOR AUTHOR'S ORGANIZ ATION 02/10/2020 [facility] DATE CREATED AUTHOR AUTHOR'S ORGANIZ ATION 10/18/2024 [facility] DATE CREATED AUTHOR AUTHOR'S ORGANIZ ATION 11/07/2024 [facility] DATE CREATED AUTHOR AUTHOR'S ORGANIZ ATION 11/29/2024 [facility] Center Goals (unrecognized section and content) Goals may be documented in a n alternate sectionGoals may be documented in an alternate sectionGoals may be documented in an alternate sectionGoals may be documented in an alternate sectionGoals may be documented in an alternate sectionGoals may be documented in an alternate sectionGoals may be documented in an alternate sectionGoals may be documented in an alternate sectionGoals may be documented in an alternate sectionGoals may be documented in an alternate sectionGoals may be documented in an alternate sectionGoals may be documented in an alternate sectionGoals may be documented in an alternate sectionGoals may be documented in an alternate section Source Comments (unrecognize d section and content) In the event this informatio n is protected by the Federal Confidentiality of Alcohol and Drug Abuse Patient Records regulations: The Federal rules restrict any use of the information to criminally investigate or prosecute any alcohol or drug abuse patient.[place]In the event this information is protected by the Federal Confidentiality of Alcohol and Drug Abuse Patient Records regulations: The Federal rules restrict any use of the information to criminally investigate or prosecute any alcohol or drug abuse patient.[place]ervilleIn the event this information is protected by the Federal Confidentiality of Alcohol and Drug Abuse Patient Records regulations: The Federal rules restrict any use of the information to criminally investigate or prosecute any alcohol or drug abuse patient.[place]ervilleIn the event this information is protected by the Federal Confidentiality of Alcohol and Drug Abuse Patient Records regulations: The Federal rules restrict any use of the information to criminally investigate or prosecute any alcohol or drug abuse patient.[place]ervilleIn the event this information is protected by the Federal Confidentiality of Alcohol and Drug Abuse Patient Records regulations: The Federal rules restrict any use of the information to criminally investigate or prosecute any alcohol or drug abuse patient.[place]ervilleIn the event this information is protected by the Federal Confidentiality of Alcohol and Drug Abuse Patient Records regulations: The Federal rules restrict any use of the information to criminally investigate or prosecute any alcohol or drug abuse patient.[place]ervilleIn the event this information is protected by the Federal Confidentiality of Alcohol and Drug Abuse Patient Records regulations: The Federal rules restrict any use of the information to criminally investigate or prosecute any alcohol or drug abuse patient.[place]ervilleIn the event this information is protected by the Federal Confidentiality of Alcohol and Drug Abuse Patient Records regulations: The Federal rules restrict any use of the information to criminally investigate or prosecute any alcohol or drug abuse patient.[place]ervilleIn the event this information is protected by the Federal Confidentiality of Alcohol and Drug Abuse Patient Records regulations: The Federal rules restrict any use of the information to criminally investigate or prosecute any alcohol or drug abuse patient.[place]ervilleIn the event this information is protected by the Federal Confidentiality of Alcohol and Drug Abuse Patient Records regulations: The Federal rules restrict any use of the information to criminally investigate or prosecute any alcohol or drug abuse patient.[place]ervilleIn the event this information is protected by the Federal Confidentiality of Alcohol and Drug Abuse Patient Records regulations: The Federal rules restrict any use of the information to criminally investigate or prosecute any alcohol or drug abuse patient.CentervilleIn the event this information is protected by the Federal Confidentiality of Alcohol and Drug Abuse Patient Records regulations: The Federal rules restrict any use of the information to criminally investigate or prosecute any alcohol or drug abuse patient.CentervilleIn the event this information is protected by the Federal Confidentiality of Alcohol and Drug Abuse Patient Records regulations: The Federal rules restrict any use of the information to criminally investigate or prosecute any alcohol or drug abuse patient.CentervilleIn the event this information is protected by the Federal Confidentiality of Alcohol and Drug Abuse Patient Records regulations: The Federal rules restrict any use of the information to criminally investigate or prosecute any alcohol or drug abuse patient.[place] Care Teams (unrecognized sec tion and content) Business Services Sales Representative Relationship Specialty Start Date End Date Cody Vanegas DO [address] [place] [address] PCP - General Family Medicine 09/04/18 Business Services Sales Representative Relationship Specialty Start Date End Date Cody Vanegas DO [address] [place] [address] PCP - General Family Medicine 09/04/18 Team Status: Active Member Role Status Dates Dr. Cody Vanegas DO Family Provider Active Dr. Cody Vanegas DO Primary Care Provider Active Team Status: Inactive Member Role Status Dates Dr. Cody Vanegas DO Primary Care Provider, Referchilango g Provider Active Jaspal Yu MD Attending Provider Active Team Status: Inactive Member Role Status Dates Dr. Cody Vanegas DO Primary Care Provider Active Dr. Osvaldo Fischer MD Attending Provider Active Team Status: Active Member Role Status Dates Dr. Cody Michael , DO Primary Care Provider, Attendin g Provider Active Team Status: Inactive Member Role Status Dates Dr. Cody Vanegas , DO Primary Care Provider, Attendin g Provider Active Business Services Sales Representative Relationship Specialty Start Date End Date Cody Vanegas, DO [address] [place] [address] PCP - General Family Medicine 09/04/18 Business Services Sales Representative Relationship Specialty Start Date End Date Cody Vanegas, DO [address] [place] [address] PCP - General Family Medicine 09/04/18 Team Status: Inactive Member Role Status Dates Dr. Cody Vanegas , DO Primary Care Provider Active Dr. Aracelis Georges , DO Emergency Provider Active Business Services Sales Representative Relationship Specialty Start Date End Date Michael Cody Chloé, DO [address] [place] [address] PCP - General Family Medicine 09/04/18 Team Status: Active Member Role Status Dates Dr. Cody Vanegas , DO Primary Care Provider Active Dr. Terrence Jones , DO Emergency Provider Active Dr. Atif Ndiaye MD Admit Provider, A ttending Provider, Other Provider Active Team Status: Active Member Role Status Dates Dr. Cody Vanegas DO Primary Care Provider Active Dr. Terrence Jones , DO Emergency Provider Active Dr. Atif Ndiaye MD Admit Provider, Other Provider Active Dr. Chris Kahn , DO Other Provider Active Dr. Tamica Light MD Attending Provider, Other Provid er Active Team Status: Inactive Member Role Status Dates Dr. Cody Vanegas DO Primary Care Provider Active Dr. Aracelis Georges , DO Attending Provider, Emergency P makenna Active Team Status: Inactive Member Role Status Dates Dr. Cody Vanegas DO Primary Care Provider Active Dr. Terrence Jones , DO Emergency Provider Active Dr. Atif Ndiaye MD Admit Provider, Other Provider Active Dr. Tamica Light MD Attending Provider Active Dr. Chris Kahn , DO Other Provider Active Team Status: Active Member Role Status Dates Dr. Cody Vanegas , DO Primary Care Provider Active Dr. Homer Beaulieu , DO Emergency Provider Active Dr. Odilon Parra MD Admit Provider, Attending Provider, Referring Provider Active Team Status: Active Member Role Status Dates Dr. Cody Vanegas , DO Primary Care Provider Active Dr. Homer Beaulieu , DO Emergency Provider Active Dr. Odilon Parra MD Admit Provider, Attending Provider, Referring Provider, Other Provider Active Team Status: Active Member Role Status Dates Dr. Cody Vanegas , DO Primary Care Provider Active Dr. Homer Beaulieu , DO Emergency Provider Active Dr. Odilon Parra MD Admit Provider, Referring Provider, Other Provider Active Dr. Cody Crandall , DO Other Provider Active Dr. Nagi Larios , DO Attending Provider, Other Prov ider Active Team Status: Active Member Role Status Dates Dr. Cody Vanegas , DO Primary Care Provider Active Dr. Homer Beaulieu , DO Emergency Provider Active Dr. Odilon Parra MD Admit Provider, Referring Provider, Other Provider Active Dr. Cody Crandall , DO Attending Provider, Other Pro vider Active Dr. Nagi Larios , DO Other Provider Active Team Status: Active Member Role Status Dates Dr. Cody Vanegas , DO Primary Care Provider Active Dr. Homer Beaulieu , DO Emergency Provider Active Dr. Odilon Parra MD Admit Provider, Referring Provider, Other Provider Active Dr. Nagi Larios , DO Other Provider Active Dr. Homer Zelaya MD Attending Provider, Other Provid er Active Dr. Cody Crandall , DO Other Provider Active Team Status: Active Member Role Status Dates Dr. Cody Vanegas , DO Primary Care Provider Active Dr. Homer Beaulieu , DO Emergency Provider Active Dr. Odilon Parra MD Admit Provider, Referring Provider, Other Provider Active Dr. Nagi Larios , DO Attending Provider, Other Prov ider Active Dr. Homer Zelaya MD Other Provider Active Dr. Cody Crandall , DO Other Provider Active Team Status: Active Member Role Status Dates Dr. Cody Vanegas , DO Primary Care Provider Active Dr. Nagi Larios , DO Attending Provider Active Team Status: Active Member Role Status Dates Dr. Cody Vanegas , DO Primary Care Provider Active Dr. Homer Beaulieu , DO Emergency Provider Active Dr. Odilon Parra MD Admit Provider, Referring Provider, Other Provider Active Dr. Nagi Larios , DO Other Provider Active Dr. Homer Zelaya MD Other Provider Active Dr. Cody Crandall , DO Other Provider Active Dr. China Walton MD Attending Provider Active Team Status: Inactive Member Role Status Dates Dr. Cody Vanegas , DO Primary Care Provider Active Dr. Homer Beaulieu , DO Emergency Provider Active Dr. Odilon Parra MD Admit Provider, Referring Provider, Other Provider Active Dr. Nagi Larios , DO Other Provider Active Dr. Homer Zelaya MD Attending Provider Active Dr. Cody Crandall , DO Other Provider Active Team Status: Active Member Role Status Dates Dr. Cody Vanegas , DO Primary Care Provider Active Dr. Homer Beaulieu , DO Emergency Provider Active Dr. Odilon Parra MD Admit Provider, Attending Provider, Other Provider Active Team Status: Active Member Role Status Dates Dr. Cody Vanegas , DO Primary Care Provider Active Dr. Homer Beaulieu , DO Emergency Provider Active Dr. Odilon Parra MD Admit Provider, Other Provide r Active Dr. Cody Crandall , DO Attending Provider, Other Pro vider Active Dr. Nagi Larios , DO Other Provider Active Team Status: Active Member Role Status Dates Dr. Cody Vanegas , DO Primary Care Provider Active Dr. Homer Beaulieu , DO Emergency Provider Active Dr. Odilon Parra MD Admit Provider, Other Provide r Active Dr. Nagi Larios , DO Other Provider Active Dr. Homer Zelaya MD Attending Provider, Other Provid er Active Dr. Cody Crandall , DO Other Provider Active Team Status: Active Member Role Status Dates Dr. Cody Vanegas , DO Primary Care Provider Active Dr. Nagi Larios , DO Attending Provider Active Dr. Homer Zelaya MD Referring Provider Active Team Status: Active Member Role Status Dates Dr. Cody Vanegas , DO Primary Care Provider Active Dr. Homer Beaulieu , DO Emergency Provider Active Dr. Odilon Parra MD Admit Provider, Other Provide r Active Dr. Nagi Larios , DO Other Provider Active Dr. Homer Zelaya MD Other Provider Active Dr. Cody Crandall , DO Other Provider Active Dr. China Walton MD Attending Provider Active Team Status: Inactive Member Role Status Dates Dr. Cody Vanegas , DO Primary Care Provider Active Crys Tickton [employer] R12 DEVELOPER, ORACLE R12 DEVELOPER-C Attending Provider Active Team Status: Inactive Member Role Status Dates Dr. Cody Vanegas , DO Primary Care Provider Active Dr. Solo Maxwell MD Attending Provider Active Team Status: Active Member Role Status Dates Dr. Cody Vanegas , DO Primary Care Provider Active Solo VALDIVIA MD Attending Provider Active Team Status: Inactive Member Role Status Dates Dr. Cody Vanegas , DO Primary Care Prov ider, Attending Provider, Referring Provider Active Team Status: Inactive Member Role Status Dates Dr. Cody Vanegas , DO Primary Care Provider, Referrin g Provider Active Dr. Nagi Larios , DO Attending Provider Active Business Services Sales Representative Relationship Specialty Start Date End Date Cody Vanegas DO [address] [place] [address] PCP - General Family Medicine 09/04/18 Team Status: Inactive Member Role Status Dates Dr. Cody Vanegas DO Primary Care Provider, Referrin g Provider Active Dr. Abebe Keene MD Attending Provider Active Team Status: Inactive Member Role Status Dates Dr. Cody Vanegas DO Primary Care Provider Active Dr. Abebe Keene MD Attending Provider, Referring P rovider Active Business Services Sales Representative Relationship Specialty Start Date End Date Cody Vanegas [address] [place] [address] PCP - General Family Medicine 09/04/18 Business Services Sales Representative Relationship Specialty Start Date End Date Cody VanegasDO [address] [place] [address] PCP - General Family Medicine 09/04/18 Business Services Sales Representative Relationship Specialty Start Date End Date Cody Vanegas [address] [place] [address] PCP - General Family Medicine 09/04/18 Business Services Sales Representative Relationship Specialty Start Date End Date Michael Cody Luevano DO [address] [place] [address] PCP - General Family Medicine 09/04/18 Business Services Sales Representative Relationship Specialty Start Date End Date Michael Cody ChloéDO [address] [place] [address] PCP - [facility] Medicine 09/04/18 Team Status: Active Member Role Status Dates Dr. Cody Vanegas DO Primary Care Provider Active Team Status: Inactive Member Role Status Dates Dr. Cody Vanegas DO Primary Care Provider Active Start: May 08, 2024 End: May 08, 2024 Dr. Cody Vanegas DO Attending Provider Active Start: May 08, 2024 End: May 08, 2024 Dr. Cody Vanegas DO Referring Provider Active Start: May 08, 2024 End: May 08, 2024 Team Status: Inactive Member Role Status Dates Dr. Cody Vanegas DO Primary Care Provider Active Start: May 27, 2024 End: May 27, 2024 Dr. Cody Vanegas DO Attending Provider Active Start: May 27, 2024 End: May 27, 2024 Dr. Cody Vanegas DO Referring Provider Active Start: May 27, 2024 End: May 27, 2024 Team Status: Active Member Role Status Dates Dr. Cody Vanegas DO Primary Care Provider Active Start: May 27, 2024 Dr. Cody Vanegas DO Referring Provider Active Start: May 27, 2024 Dr. Cody Vanegas DO Other Provider Active Sta rt: May 27, 2024 Dr. Dodie Estrada MD Attending Provider Active Start: May 27, 2024 Team Status: Inactive Member Role Status Dates Dr. Cody Vanegas DO Primary Care Provider Active Start: June 26, 2024 End: June 26, 2024 Dr. Cody Vanegas DO Attending Provider Active Start: June 26, 2024 End: June 26, 2024 Dr. Cody Vanegas DO Referring Provider Active Start: June 26, 2024 End: June 26, 2024 Team Status: Inactive Member Role Status Dates Dr. Cody Vanegas DO Primary Care Provider Active Start: August 07, 2024 End: August 07, 2024 Dr. Cody Vanegas DO Attending Provider Active Start: August 07, 2024 End: August 07, 2024 Team Status: Inactive Member Role Status Dates Dr. Cody Vaneags DO Primary Care Provider Active Start: August 20, 2024 End: August 20, 2024 Dr. Abebe Keene MD Attending Provider Active Start: August 20, 2024 End: August 20, 2024 Dr. Abebe Keene MD Referring Provider Active Start: August 20, 2024 End: August 20, 2024 Team Status: Inactive Member Role Status Dates Dr. Cody Vanegas DO Primary Care Provider Active Start: September 05, 2024 End: September 05, 2024 Dr. Jamie Sanchez DO Emergency Provider Active Start: September 05, 2024 End: September 05, 2024 Business Services Sales Representative Relationship Specialty Start Date End Date Cody Vanegas DO [address] [facility] [place] [address] PCP - General Family Medicine 09/04/18 Reason for Visit (unrecogniz ed section and content) Reason Comments Patient Question Reason Comments Results Reason Comments Established Patient Reason Onset Date Comments Refill Request 09/06/2022 Reason Comments Appointment Reason Comments Consult Reason Comments Follow Up Reason Comments New Patient pancreas cyst, secon d opinion - refer from pcp Reason Comments Established Patient Follow up [facility] Confer ence FOR RECORDS PERTAINING TO PATIENTS WHO ARE [...] BE BASED ON THE PRIMARY CLINICAL RECORDS. [employer] [facility]. provides no warranty or guarantee of the accuracy or completeness of information in this document.
== END | disposition home or self-care (01) ==
LOC: MTLAB 11:07
PROVIDERS: PCP Family Medicine; Referring Provider Family Medicine; Visit Provider Family Medicine
DX: D47.3 Essential (hemorrhagic) thrombocythemia (principal); G62.9 Polyneuropathy, unspecified; M25.551 Pain in right hip
CPT/HCPCS: 36415; 73502; 82784; 85025; 86334; 86335; 86617

== ENCOUNTER → 2025-02-26 | Outpatient (CLI) | payer MEDICARE, OTHER, SELFPAY ==
--- NOTE | 2025-02-26 16:21 | CT_ITS ---
PROCEDURE: EXTREMITY LOWER WITHOUT CONTRA 02/26/2025 REASON FOR EXAM: PRE OP TECHNIQUE: Procedure Code: CTELWO Modality: CT Procedure: EXTREMITY LOWER WITHOUT CONTRA Coronal and Sagittal reconstruction series were provided. One or more dose reduction techniques were used (e.g., Automated exposure control, adjustment of the mA and/or kV according to patient size, use of iterative reconstruction technique). RADIATION DOSE SUMMARY: DLP: 747.32 mGycm COMPARISON: Pelvis/hip radiographs 12/04/2024, CT dated 09/05/2024. FINDINGS: No acute fracture or dislocation. Chronic fracture deformities of the right superior and inferior pubic rami. Status post bilateral hip arthroplasties, with cerclage wires on the right in the subtrochanteric region. Hardware appears intact, although there is internal rotation of the right acetabular component, unchanged from prior exam. There is mild subsidence of both of the acetabular cup components. Degenerative changes of the imaged lower lumbosacral spine, with mild grade 1 degenerative anterolisthesis of L5 on S1.. Grossly unremarkable superficial soft tissues although evaluation is limited by significant metallic streak artifact. No acute or active inflammatory findings seen within the visualized pelvis. There is a partially imaged cystic mass in the central abdomen, grossly stable. CT/Extremity Lower without Contra IMPRESSION: 1. No acute or aggressive osseous abnormality. 2. Bilateral hip arthroplasties with intact hardware, although there is mild dsouza bsidence of the bilateral acetabular cup components, and with mild internal rotation on the right. Unchanged. 3. Partially imaged cystic mass in the midabdomen; see prior abdominal CT repor t. Reading Location: [id number]
== END | disposition home or self-care (01) ==
LOC: CT 16:15
PROVIDERS: PCP Family Medicine; Referring Provider Specialist; Visit Provider Specialist
DX: Z01.818 Encounter for other preprocedural examination (principal); T84.030A Mechanical loosening of internal right hip prosthetic joint, initial encounter; Z96.641 Presence of right artificial hip joint
CPT/HCPCS: 73700

== ENCOUNTER → 2025-03-10 | Outpatient (CLI) | payer MEDICARE, OTHER, SELFPAY ==
[2025-03-10 15:24] LABS: Hematocrit 42.9 % (37-47); Hemoglobin 14.0 g/dL (12.0-15.0); Immature Granulocytes Count 0.010 X10^3/uL (0.0-0.0); Mean Corp Hgb Conc 32.6 g/dL (32-36); Mean Corpuscular Volume 104.1 fL (81-99); Mean Platelet Vol. 9.0 fl (6.2-12.0); NRBC Flagged by Analyzer 0 % (0-5); Platelet Count 406 K/mm3 (150-450); RBC Distribution Width CV 14.5 % (11.6-14.6); RBC Distribution Width SD 55.1 fl (35.1-43.9); Red Blood Count 4.12 M/mm3 (4.2-5.4); White Blood Count 4.3 K/mm3 (4.4-11.0)
[2025-03-10 18:23] LABS: Vitamin D,25 Hydroxy 32.4 ng/mL (30-100)
== END | disposition home or self-care (01) ==
LOC: BFHLAB 11:42
PROVIDERS: PCP Family Medicine; Visit Provider Family Medicine
DX: D47.3 Essential (hemorrhagic) thrombocythemia (principal); M81.0 Age-related osteoporosis without current pathological fracture
CPT/HCPCS: 36415; 82306; 85025

== ENCOUNTER 2025-03-19 09:50 | Outpatient (CLI) | payer MEDICARE, OTHER, SELFPAY ==
[2025-03-19 10:13] VITALS: BP 135/46; PULSE 70; RESP 16; TEMP 36.3; O2SAT 98; BMI 24.8
[2025-03-19] MEDS: 0.9% NaCl IVPB Med Flush (100mL) 15 ML IV (10:20)
[2025-03-19] MEDS: 0.9% NaCl Peripheral Flush Adult IV (10:20)
[2025-03-19 10:55] VITALS: BP 145/43; PULSE 58
== END 2025-03-19 23:59 | disposition home or self-care (01) ==
LOC: MEDOUTP 09:51
PROVIDERS: PCP Family Medicine; Referring Provider Family Medicine; Visit Provider Family Medicine
DX: M81.0 Age-related osteoporosis without current pathological fracture (principal)
CPT/HCPCS: 96365; A4216; J3489

== ENCOUNTER 2025-06-08 16:40 | Inpatient (IN) | payer MEDICARE, OTHER, SELFPAY ==
[2025-05-21 11:05] LABS: Hematocrit 40.4 % (37-47); Hemoglobin 13.9 g/dL (12.0-15.0); Immature Granulocytes Count 0.010 X10^3/uL (0.0-0.0); Mean Corp Hgb Conc 34.4 g/dL (32-36); Mean Corpuscular Volume 102.8 fL (81-99); Mean Platelet Vol. 9.0 fl (6.2-12.0); NRBC Flagged by Analyzer 0 % (0-5); Platelet Count 356 K/mm3 (150-450); RBC Distribution Width CV 14.6 % (11.6-14.6); RBC Distribution Width SD 54.9 fl (35.1-43.9); Red Blood Count 3.93 M/mm3 (4.2-5.4); White Blood Count 5.0 K/mm3 (4.4-11.0)
[2025-05-21 11:54] LABS: Albumin, Serum 4.1 g/dL (3.4-4.8); Anion Gap 9 (5-15); BUN 21 mg/dL (4-19); BUN/Creat Ratio 39.5 RATIO (10-20); Calcium,Total 9.2 mg/dL (7.6-11.0); Carbon Dioxide 23.4 mmol/L (21.0-32.0); Chloride 102 mmol/L (98-108); Glucose 99 mg/dL (70-99); Magnesium 2.2 mg/dL (1.5-2.2); Potassium 4.2 mmol/L (3.3-5.1)
--- NOTE | 2025-06-01 21:32 | HP.PCM_ITS ---
History and Physical History and Physical? Patient Name: Kellie Be : 1935From:? TUYET LYNN PA-C? DATE OF PRE-OPERATIVE EXAM: 06/01/2025 DATE OF SURGERY:? 06/08/2025 SCHEDULED PROCEDURE:? Right revision total hip arthroplasty posterior approach HISTORY OF PRESENT ILLNESS: Preoperative history and physical exam form on June 01, 2025.? This is an 89-year-old female who is had ongoing right hip pain.? She has had a previous right total hip arthroplasty from outside orthopedic surgeon Dr. Ibarra.? Patient reports that she has been having progressive worsening pain and weakness with her right hip.? She has pain and weakness with hip flexion.? Her pain has been constant and sore.? Pain is increased with standing, walking, and going up and down stairs.? She does feel that the right hip is shorter than the left.? She does have history of chronic low back pain with neuropathy bilaterally.? She has difficulty with activities of daily living including getting dressed, housework, and shopping.? She requires the use of the walker and feels unsafe without the walker.? She has tried previous physical therapy and home exercises without relief.? She has attempted landcare facilitator without relief.? She has tried oral medications including Tylenol.? She has difficulty with mobility due to the pain.? She has undergone previous re-clast infusions which is caused tightness.? Patient has had previous CT scan which was consistent with significant acetabular bone loss and superior migration of the acetabular cup.? After failing conservative measures and discussing all treatment options with Dr. Mic Mallory, the patient does wish to proceed with a revision right total hip arthroplasty posterior approach.? Patient has obtain surgical clearance from the primary care provider Dr. Vanegas.? She denies any recent chest pain, shortness of breath, fevers chills or recent infections.? Denies past history of DVT or pulmonary embolism.? Previous bleeding stomach ulcer which did require blood transfusion.? She has been told that she has no longer allowed to take any nonsteroidal anti-inflammatories.? History of COPD, chronic low back pain, gastroesophageal reflux disease, anxiety. REVIEW OF SYSTEMS: Review Of Systems: Constitutional: Denies anorexia, anxiety, change in appetite, fever and weight change,hard of hearing, and vision problems. Cardiovasular: Reports heart murmur, but denies chest pain, irregular heartbeat and peripheral vascular disease. Respiratory: Reports COPD, cough and shortness of breath, but denies asthma, pneumonia, sleep apnea, tuberculosis and wheezing. Gastrointestinal: Reports constipation, but denies diarrhea, heartburn, nausea, bloody stools and vomiting, and difficulty swallowing. Genitourinary: Reports incontinence. Musculoskeletal: Reports ambulatory dysfunction, pain, trouble walking and weakness, but denies leg swelling? Skin: Denies Raynaud's, history of shingles and tattoo. Neurological: Reports ambulatory dysfunction and numbness/tingling but denies dizziness and tremor. Psychiatric: Reports anxiety and insomnia, but denies depression, mental illness and stress. Hematologic/Lymphatic: Reports past transfusion, but denies anemia and bleeding/bruising tendency. Reviewed and updated. PAST MEDICAL HISTORY: Advance Care Plan: Other Directive, POA Effective Date: 07/29/2020 Other Directive, LIVING WILL Effective Date: 07/29/2020 Past Medical History: Medical Problems: Arthritis Acid Reflux - with hiatal hernia? Cancer - SKIN Pancreatic Cyst, hypertension, Osteoporosis, Chronic Obstructive Pulmonary Disease (COPD), palpitations, chronic vertigo, hyperlipidemia, peripheral neuropathy, left thyroid nodule, pulmonary nodule pancreatic pseudocyst - stable, however large in size per PCP? chronic low back pain, heart murmur previous - (12/2022) bleeding stomach ulcer - resulted in 4 units - from taking too much NSAIDs - stated doctor stated that she lost half of her blood at that time.? anxiety, insomnia Accidents: Fracture - (04/04/2010) LT WRIST Surgical Hx: Colon Resection - 1993 SINGH Tonsillectomy - 0 LODI Hip Replacement - 1990 MIKE FIGUEROA Right Thumb Trigger Release - (01/30/2007) W/CTR MSK @ [facility] RT Shoulder Partial Replacement - (2008) FRED RT Shoulder Tendon Snip - (2009) FRED LT THR Revision - (2012) Fred RT THR - (1996) Fred Ford's Skin Cancer Removed - (2009) Gallbladder - (2010) RT Wrist Tendon Reapir - (2017) LT TKR - (2017) Heart Ablation - cath Anesthesia Complications: None Assistive Devices: Glasses, Walker Reviewed and updated. SOCIAL HISTORY: Social History: Marital: .Occupation: Retired.Work Status: Retired.Hand Dominance: Right- Handed. Personal Habits:? Cigarette Use: Never.Smokeless Tobacco: Never Used Smokeless Tobacco.E-Cigarette Use: Never used.Alcohol: Denies use.Drug Use: Denies Use.Enjoy Exercising: Exercises 1-3 X/Week. Reviewed, no changes. VITALS: Ht: 61 Wt: 125lb Wt k.700 BMI: 23.6 BP: 126/62 Pulse: 80 Resp: 18 T: 97.5 T: 36.4C Pain Level: 2/10 O2SatR: 100 ALLERGIES: Amoxicillin Biaxin Sodium Penathol Cipro - had after gallbladder removal Atorvastatin Clarithromycin Thiopental? MEDICATIONS: Flonase 50 mcg/Act prn, Stool Softener 100 mg 2-3 times a day, Mucinex 600 mg 1po bid, Metoprolol 50 mg as needed, Hydroxyurea 500 mg one po by mouth every day except sunday, Fiber Adult Gummies 2 gm 1po bid, Meclizine HCL 25 mg prn, Reclast 5 mg/100ml every other year, Gas Relief? as needed, Albuterol Inhaler? 2 puffs prn, Citrazine- Allergy 10 MG? 1/2 po qhs, Clobetosol Propinate .05%? prn, Ducolax Suppository? qd PRE-OP EXAM:? General appearance:NORMAL? ? ? Other: Eyes: Conjunctivae and lids: NORMAL? Pupils: ERR Ears, Nose, Mouth, and Throat: NORMAL? Other: Inspection of lips, teeth and gums: NORMAL? ?Other: Neck: Examination of neck: no masses noted. Respiratory: Assessment of respiratory effort: NORMAL? ?Other: ?Auscultation of lungs: clear to auscultation no wheezes, rhonchi or rales. Cardiovascular:? Auscultation of heart: regular rate and rhythm, Positive systolic murmur PHYSICAL EXAMINATION: On exam patient does walk with an antalgic gait with use of walker.? The right hip is without erythema or signs of infection.? Previous incision is well healed.? Patient has tenderness to palpation along the lateral hip at the greater trochanteric region.? Hip range of motion flexion 70 with obligatory external rotation.? Limited internal and external Rotation due to pain.? Sensation intact to light touch. IMAGING STUDIES: Previous x-rays of the right hip reveals superior migration of the acetabular component which change in abduction angle consistent with acetabular loosening and associated ostial lysis.? The previous hip replacement femoral stem does appear to be stably fixed.? No significant lucencies surrounding the stem.? Previous cable and trochanteric erosion consistent with previous calcar fracture or osteotomy. Previous CT scan was consistent with significant acetabular bone loss and superior migration of the acetabular cup. IMPRESSION: 1.? 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 Gastroesophageal reflux disease 3.? Pancreatic cyst 4.? Hypertension 5.? Chronic obstructive pulmonary disease 6.? Chronic vertigo 7.? Hyperlipidemia 8.? Peripheral neuropathy 9.? Chronic low back pain 10.? History of GI bleed 11.? Anxiety 12.? Insomnia PLAN: Dr. Mic Mallory did discuss and review with the patient all treatment options including surgical versus nonsurgical options.? I will continue plan established by Dr. Mic Mallory.? Patient does wish to proceed with the above-stated procedure.? Potential risks, benefits, and complications of the procedure were discussed in detail including but not limited to , infection, nerve and blood vessel damage, persistent pain, numbness, tingling, paresthesias, blood clot, pulmonary embolism, and requirement for possible further surgery.? The patient expressed full understanding and has no further questions for the doctor.? Patient does agree to proceed with the above-stated procedure and has signed the surgery consent form. POST-OP MEDICATION PLAN: Pain Medications: Postoperative pain regimen will be initiated by Dr. Mic Mallory in the hospital.? We did discuss at the preoperative visit postoperative pain regimen including Tylenol and narcotics.? Patient is unable to use nonsteroidal anti-inflammatory due to previous GI bleed which did cause need for blood transfusion.? We discussed the potential interaction with her age and narcotics.? Discussed maintaining appropriate pain control postoperatively.? Patient has been established, her nutrition protocol.? She has obtain surgical clearance from the primary care provider.? There is concern with discharge home postoperatively she does live home alone.? I did explain to her that we will have the care management team on board for safe and appropriate discharge planning.? Patient will most likely require rehabilitation facility versus transitional care unit.? She is aware that this will have to be established postoperatively and approved from an insurance standpoint.? She will bring her walker to the hospital.? Due to revision total hip arthroplasty posterior approach I did discuss with the patient posterior hip dislocation precautions.? Also explained to her that she will be placed on an antibiotic for 2 weeks postoperatively in which she will be using doxycycline.? She is aware that she has more sensitive to the sunlight and should take appropriate precautions.? Also recommended probiotic while on this medication DVT Prophylaxis Plan:? Aspirin 81 mg twice daily for 4 weeks postoperatively.? Denies past history of DVT or pulmonary embolism.? Continue with VASQUEZ khris for 2 weeks postoperatively. This dictation was created using voice recognition software. Phonetic and/or grammatical errors may exist. ___? I have re-examined the patient.? There are no clinical changes since date of exam. ___? See progress notes for changes. ___? Dictated on admission Date: ? ? ?Time: Signature:
[2025-06-08] VITALS (10 sets, daily range): BP systolic 96–152; BP diastolic 49–98; PULSE 57–80; RESP 16–20; TEMP 36.3–37.2; O2SAT 95–100; BMI 23.8
--- NOTE | 2025-06-08 11:48 | PRE.ANES_ITS ---
ASA Classification* ASA Classification ASA Classification: 2 Assessment & Plan Anesthesia* Anesthesia Assessment Anesthesia Assessment: Discussed sedation and/or anesthesia options, risks, benefits, and alternatives with patient/parents/legal guardian/POA. Questions invited. The patient/parents/legal guardian/POA seems to understand and agrees to proceed with anesthesia plan. Reviewed the physical assessment, medical history, allergy history and patient home medications list prior to surgery/procedure/anesthetic and documented any changes. Performed airway and anesthesia risk assessments. Anesthesia Type Anesthesia Type: Spinal (vs GA) Anesthesia Focused Assessment* Airway Assessment Mouth opens: >3 cm Mallampati Score: II Labs Anesthesia Preop lab: CBC WBC, (4.4-11.0) 5.0 K/mm3 05/21/25, 10:35 RBC, (4.2-5.4) 3.93 M/mm3 L 05/21/25, 10:35 Hgb, (12.0-15.0) 13.9 g/dL 05/21/25, 10:35 Hct, (37-47) 40.4 % 05/21/25, 10:35 Plt Count, (150-450) 356 K/mm3 05/21/25, 10:35 CHEMISTRY Potassium, (3.3-5.1) 4.2 mmol/L 05/21/25, 10:35 Sodium, (133-145) 134 mmol/L 05/21/25, 10:35 Magnesium, (1.5-2.2) 2.2 mg/dL 05/21/25, 10:35 Phosphorus, (2.5-4.9) 2.2 mg/dL L 01/11/23, 05:33 BUN, (4-19) 21 mg/dL H 05/21/25, 10:35 Creatinine, (0.70-1.20) 0.53 mg/dL L 05/21/25, 10:35 Glucose, (70-99) 99 mg/dL 05/21/25, 10:35 POC Glucose, (74-106) 99 mg/dL 09/05/24, 12:45 TSH, (0.358-3.740) 2.210 uIU/mL 08/07/24, 10:40 COAG PT, (11.7-14.9) 14.3 SECONDS 01/07/23, 22:50 Pre-Assessment Diagnosis/Proposed Procedure Planned Operative Procedure(s): (R) REVISION RIGHT TOTAL HIP ARTHROPLASTY, POSTERIOR, ERAS Anesthesia History 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 When Was Last Pacemaker Check QUESTION #4 FULL TEXT: You/Your Family Experience fever (hyperthermia) with Anesthesia Last Oral Intake Last Oral intake: Last Oral Intake NPO since Meds taken in AM with sips of water? Meds patient instructed to take am of surgery PONV PONV - sheet metal duct installer helper: PONV - sheet metal duct installer helper Female Yes 05/11/25 13:22 HX of Motion Sickness Yes 05/11/25 13:22 HX of N/V After Surgery No 05/11/25 13:22 Non-Smoker Yes 05/11/25 13:22 Duration of Surgery greater Yes 05/11/25 13:22 than 60 minutes Number of Risk Factors 4 05/11/25 13:22 PONV Score Severe Risk 05/11/25 13:22 Height & Weight Height & Weight: Anesthesia: Height & Weight Height 4 ft 11 in 05/14/25 09:50 Respiratory Assessment Respiratory Assessment - sheet metal duct installer helper: Respiratory Tract Infection Hx - sheet metal duct installer helper Hx Respiratory Tract Infection No 05/11/25 13:22 STOP Sleep Apnea STOP Sleep Apnea - sheet metal duct installer helper: STOP Sleep Apnea - sheet metal duct installer helper Hx Hypertension No 05/11/25 13:22 Hx Sleep Apnea No 05/11/25 13:22 CPAP No 01/08/23 18:05 BIPAP Do you snore loudly (louder No 05/11/25 13:22 than talking or can be heard Do you often feel tired/ No 05/11/25 13:22 fatigued/ sleepy during daytime? Has anyone observed you stop No 05/11/25 13:22 breathing during sleep? STOP Results Negative 05/11/25 13:22 QUESTION #5 FULL TEXT : Do you snore loudly (louder than talking or can be heard through closed doors)? Tobacco Use History Tobacco Use History - sheet metal duct installer helper: Tobacco Use History - sheet metal duct installer helper Tobacco Use Smoking Status Never smoker 05/14/25 10:07 Hx Tobacco Use No 05/11/25 13:22 Years Smoking Packs Smoked per Day Smoking Cessation Date was within the last 15 years Hx Smoking Cessation Date Hx Smoking Cessation Counseling Hematologic Medial History Hematologic Hx - sheet metal duct installer helper: Hematologic Medical Hx - skin installer Hx of Blood Transfusion Yes 05/11/25 13:22 Hx of Transfusion in last 3 No 05/11/25 13:22 Months Date of Last Transfusion (if within last 3 months) Ever experience any problems No 05/11/25 13:22 with transfusion(s)? Specify any problems Hx of Preganancy in last 3 No 05/11/25 13:22 Months Nurse Filling Out Transfusion JZOLLINGE 05/11/25 13:22 & Questions: Date: 05/11/25 05/11/25 13:22 Time: 13:27 05/11/25 13:22 Patient unable to answer at this time (ie. confused, unrespo /Reproduction History /Reproductive History - sheet metal duct installer helper: /Reproductive Hx- sheet metal duct installer helper Hx Now No 05/11/25 13:22 Gestational Age (in weeks): EDC: Hx Hx Para Hx Section SAB No 05/11/25 13:22 Does the father of the baby or his family experience fever w Father of the baby Malignant Hypertension history comment Active Medications Active Medications: Current Medications Generic Name Dose Route Start Last Admin Trade Name Freq PRN Reason Stop Dose Admin Acetaminophen 1,000 mg 06/08/25 13:15 Acetaminophen 500 Mg Tablet PO 06/08/25 13:16 PREOP ONE Sodium Chloride 77.9 ml/ 0 ml 06/08/25 13:15 Ropivacaine 200 mg/ OPERA.SITE 06/08/25 13:16 Epinephrine HCl 0.6 mg/ INTRAOP ONE Ketorolac Tromethamine 30 mg/ Morphine Sulfate 5 mg Dexamethasone Sodium Phosphate 10 mg 06/08/25 13:15 Dexamethasone 10 Mg/Ml Vial IV 06/08/25 13:16 INTRAOP ONE Gabapentin 600 mg 06/08/25 13:15 Gabapentin 600 Mg Tablet PO 06/08/25 13:16 PREOP ONE Lactated Ringer's 1,000 mls @ 999 mls/hr 06/08/25 13:15 IV 06/08/25 14:15 .Q1H1M FIDENCIO Cefazolin Sodium 2 gm/ Sodium 110 mls @ 150 mls/hr 06/08/25 13:15 Chloride IV 06/08/25 13:58 INTRAOP ONE Tranexamic Acid 1,000 mg/ 110 mls @ 660 mls/hr 06/08/25 13:15 Sodium Chloride IV 06/08/25 13:24 INTRAOP ONE Tranexamic Acid 1,000 mg/ 110 mls @ 660 mls/hr 06/08/25 13:15 Sodium Chloride IV 06/08/25 13:24 INTRAOP ONE Lactated Ringer's 1,000 mls @ 999 mls/hr 06/08/25 14:15 IV 06/08/25 15:15 .Q1H1M FIDENCIO Lactated Ringer's 1,000 mls @ 125 mls/hr 06/08/25 15:15 IV 06/08/25 23:14 .Q8H FIDENCIO Magnesium Sulfate 1 gm/ 102 mls @ 408 mls/hr 06/08/25 13:15 Dextrose IV 06/08/25 13:29 PREOP ONE Insulin Human Lispro 1 - 6 unit 06/08/25 13:15 Insulin Lispro 100 Unit/Ml Insuln.Pen SC 06/08/25 19:15 Q4H PRN PRN BG>/= 180, SEE PROTOCOL Protocol PFSH Medical History Wears glasses Arthritis History of GI bleed Non-smoker Pseudocyst of pancreas Depression Fall Left hip pain Right hip pain Right knee pain Bilateral shoulder pain Pericardial effusion Nonrheumatic tricuspid valve regurgitation Hemorrhoids Idiopathic thrombocythemia Vertigo Osteoporosis Osteoarthritis Hyperlipidemia Macular degeneration GERD (gastroesophageal reflux disease) Secondary pulmonary arterial hypertension Nodule of left lung Pancreatic cyst Goiter Vitamin D deficiency Home Medications ?Medication ?Instructions ?Recorded ?Last Taken ?Type albuterol sulfate 90 mcg/actuation 1 puff inhalation Q 6H PRN Sob &/Or 02/26/18 Unknown History aerosol inhaler (Ventolin HFA) Wheezing calcium 250 mg (phosphate)-vit D3 1 tab PO DAILY SUPPL EMENT 02/26/18 12/07/22 History 12.5 mcg (500 unit) chewable tablet (Citracal-D3 Gummies) docusate sodium 100 mg capsule 100 mg PO BID CONSTIPAT ION 02/26/18 12/07/22 History (Stool Softener) fluticasone propionate 50 1 spray intranasal DAILY PRN 02/26/18 12/07/22 History mcg/actuation nasal Allergies spray,suspension (Flonase Allergy Relief) hydroxyurea 500 mg capsule 500 mg PO MOTUWETHFRSA BONE MARROW 09/14/22 12/07/22 History meclizine 25 mg chewable tablet 25 mg PO DAILY PRN PRN dizziness 01/07/23 Unknown History (Antivert) cetirizine 10 mg tablet (Zyrtec) 10 mg PO DAILY PRN AL LERGIES 07/20/23 Unknown History cyanocobalamin (vitamin B-12) 1,000 mcg PO DAILY SUPPL EMENT 07/20/23 Unknown History 1,000 mcg tablet inulin-chromium picolinate 2 3 tab PO DAILY SUPPLEMENT 07/20/23 Unknown History gram-100 mcg chewable tablet (Fiber Select Gummies) guaifenesin 600 mg tablet, 600 mg PO BID Cough 4 Unknown History extended release 12 hr (Mucinex) acetaminophen 500 mg tablet 1,000 mg PO BID PAIN 03/19 Unknown History bisacodyl 5 mg tablet,delayed 5 mg PO BID CONSTIPATION 03/19/25 Unknown History release (Dulcolax (bisacodyl)) cholecalciferol (vitamin D3) 25 500 unit PO DAILY SUPP LEMENT 03/19/25 Unknown History mcg (1,000 unit) tablet (Vitamin D3) nutritional supplements (Nutra Pro ea PO BID SUPPLEMEN T 05/11/25 Unknown History High Protein oral powder) protein supplement 30 ml PO .QD SUPPLEMENT 05/02 Unknown History zoledronic acid 5 mg/100 mL in 1 ea .Route .Q2YEAR BON E 05/14/25 Unknown History mannitol 5 %-water intravenous piggybck (Reclast) Allergy/AdvReac Type Severity Reaction Status Date / Time ciprofloxacin (From Cipro) Allergy Itching Verified 06/05/25 08:49 amoxicillin AdvReac Upset Verified 05/14/25 09:57 Stomach atorvastatin (From Lipitor) AdvReac myalgias Verified 05/14/25 09:57 clarithromycin (From Biaxin) AdvReac Vomiting Verified 05/14/25 09:57 thiopental (From Pentothal) AdvReac Nausea Verified 05/14/25 09:57 Family History Brother CAD (coronary artery disease) Diabetes Father Diabetes Myocardial infarction Mother , 94 due pneumonia No problems noted. 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
[2025-06-08] MEDS: Magnesium 1 GM over 15 mins IV (12:12)
[2025-06-08] MEDS: LR 1,000 ML - BOLUS PREOP 999 ML IV (12:12)
[2025-06-08] MEDS: Cefazolin 1 GM/5 ML Vial 2 GM IV (14:10)
[2025-06-08] MEDS: Lactated Ringers 1,000 ML 1000 ML IV (15:24)
[2025-06-08] MEDS: JPS (Morphine 10mg/ml) OPERA.SITE (15:55)
[2025-06-08] MEDS: TRANEXAMIC ACID 1,000 MG/10 ML ML 2000 MG IV (16:06)
--- NOTE | 2025-06-08 16:19 | OP.PCM_ITS ---
Operative Report (Standard) Operative Information Date of Procedure: 06/08/25 Pre-Operative Diagnosis: Failed right total replacement, acetabular aseptic loosening Post-Operative Diagnosis: Failed right total hip replacement, acetabular aseptic loosening Surgery/Procedure Performed: Right revision total replacement, both components photocopier technician: Yes Retina Subspecialist: Tabitha Gracia Tasks completed by delivery assistant: Other (During the course of the procedure the physician procurement clerk (PE) played a vital role. Their intimate knowledge of my steps in the procedure aided in safe and expedient completion of the procedure. The PE played a vital rolls in positioning particularly in obtaining the appropriate positioning of the) Additional plant attendant or assistant operator?: No Type of Anesthesia: Spinal RN Documented Start/Stop Times: Operation Date: 06/08/25 13:15 Case Time Into Pre-Op 06/08/25 11:32 Anesthesia Start 06/08/25 14:10 Into Room 06/08/25 14:10 Procedure Start 06/08/25 14:46 Procedure End 06/08/25 16:39 Anesthesia End 06/08/25 16:47 Out of Room 06/08/25 16:47 Into Recovery 06/08/25 16:54 Procedure Start Time: 14:46 Procedure Stop Time: 16:39 Select all DRAINS/GRAFTS/IMPLANTS that apply: Prosthetic device Prosthetic device details: See body of operative report Special Medications: 2 g Ancef, 1 g TXA at incision, 1 g TXA closure, 10 mg Decadron, joint cocktail (5 mg Duramorph, 30 mL of 0.5% Ropivicaine, 1000 units of epinephrine, 30 mg of Toradol) Estimated Blood Loss: 300 mL Fluids Replaced: 900 mL crystalloid Specimen collected: Yes Description of specimen(s) removed: 3 separate specimens were sent to microbiology Description of surgery: Findings: Adequate reduction with stability of the hip and equal leg lengths measured intraoperatively. Components used: 1. [place] Trident 2 54 mm acetabular multihole component with 2 screws in the safe zone 2. Brit MDM dual mobility acetabular liner alpha code E 3. Brit X3 polyethylene liner, alpha code 42E MDM 4. Brit LAB TESTER cobalt-chromium 28 mm, 0 mm neck femoral head Procedure: On the date of procedure the patient's R hip was marked in the preoperative area. Patient was then taken back to the operating room where anesthesia assumed control of the C-spine and airway and administered anesthetic. Patient was transferred to the operating table and placed in the lateral decubitus position with the affected hip up. The patient was secured in the bed with the lateral positioners and leg lengths were checked. The R lower extremity was then prepped out in a sterile fashion using chlorhexidine while the surgeon scrubbed. Upon reentering the room the R lower extremity was draped in the standard orthopedic fashion and the incision was marked. A timeout was called and everyone agreed upon the side, the site, the procedure be performed, antibiotics given, and patient's identity. At this time incision was made through skin using the previous incision and extending it proximally. We did not need the full extent of the distal incision, subcutaneous tissue, and fat down to fascia. The fascia was then incised and a Charley retractor was placed. The soft tissue was then cleared from the posterior external rotators complex was identified. Capsulotomy was made and the posterior capsule was tagged. The retractors were then placed inside the capsule. Complete synovectomy was performed. The component was identified and a synovectomy was performed around the implant. After appropriate synovectomy and releases were performed hip was dislocated. Bone tamp was used to dissociate the femoral head from the trunnion. This was verified as a 26 0 which was not compatible with desired MDM options. Our attention was then directed to the acetabulum and the anterior retractor was placed and a zelpi was used to retract the posterior capsule superiorly. At this time a cuff tome was used to dissociate the cuff from a membrane. There was not good bony fixation. All soft tissue debris was removed from the lower portion of the acetabulum and the overall bone defect was identified. There was a contained superior defect. Membrane from the acetabulum was fully removed and a small reamer was used to help ream down to appropriate bone and the superior defect. Directed our attention more distally and the true hip center, the acetabulum was then sequentially reamed to 54 millimeters. 54 mm trial component was impacted into place. We are able to identify where the defect was. 15 mL liters of crushed bone graft was then opened on the back table. At this time wound was copiously irrigated out with 6 L normal saline under low- pressure lavage after removing the retractors and allowing the skin rest. Once the wound was appropriately lavaged a 54 mm [place] multihole cup was opened and impacted into place. At this time, 2 bone screws were placed in the safe zone of the acetabular component. Once it was securely fastened down the cobalt- chromium MDM liner was placed and security was verified. Once it was securely fastened our attention was again turned towards the femur and a 42/28 mm head with 0 mm offset was trialed as this was her only option. The hip was properly reduced using traction and external rotation. Stability was checked with the appropriate amount of shuck, no impingement with external rotation, and stable at 90? flexion and 90? internal rotation. Leg lengths were checked and were found to be equal on the table. At this point the hip was dislocated and trial components were removed the proximal femur was adequately exposed, the final components were verified and opened. The wound was copiously irrigated out with normal saline. The acetabulum was checked for any residual debris. The final components were placed and impacted. Traction and external rotation were again used to reduce the hip. After adequate reduction the hip remained stable with appropriate leg lengths. The wound was then copiously irrigated with normal saline once more, and hemostasis was obtained. The posterior capsule and piriformis were repaired through drill holes to the greater trochanter . Closure was then done using #1 Vicryl and #1 strata fix to close the fascia. A 2-0 Vicryl interrupted sutures were used to close the subcutaneous skin. Strata fix and skin jaci were used for final skin closure. A sterile dressing was placed. Patient was awakened by anesthesia and transferred to the [facility]. Patient was then transferred to the PACU for recovery. Postoperative plan: Patient will get 24 hours postop antibiotics. Patient will get in-house physical therapy and will be weight-bear as tolerated. Patient will follow up in office in 2 weeks for a wound check and x-rays. Aspirin 81 mg twice daily for DVT prophylaxis. Extended postop oral antibiotics due to revision. Surgical Findings: Bone graft was used to backfill superior defect. Patient's femoral head was incompatible with available acetabular revision implants femoral head had to be revised additionally, 1 to use dual ability femoral head for protection against instability. Stable hip. Patient's LAB TESTER implant did not have minus options overall leg lengths appear equal on the table and moderate cues position. Complications Complications: No Admit VTE Documentation VTE Present on Admission: No VTE Mechan Device Prophylaxis: SCD's and Thigh High VASQUEZ Hose VTE Pharm Prophylaxis ordered?: Yes
--- NOTE | 2025-06-08 16:53 | PCM.POST.ANE ---
Anesthesia: Postop Eval I Current Vital Signs Temperature: 97.7 F Pulse Rate: 78 Blood Pressure: 96/66 Respiratory Rate: 16 Pulse Ox: 98 Oxygen Delivery Method: Nasal Cannula Oxygen Flow Rate (L/min): 3 Assessment Airway patent: Yes Spontaneous unlabored respirations: Yes Mental status: Awake and Calm nausea: No Vomiting: No Anesthesia Complication: No Fluid Hydration Crystalloid volume administer (ml): 900 Total IV fluid infused: 900 Progress Note Anesthesia document: Postop Eval 1 completed: Yes
--- NOTE | 2025-06-08 16:59 | POSTOPAN2_ITS ---
Anesthesia Postop Eval I Sum Postop Eval Completion status Anesthesia document: Postop Eval 1 completed: Yes Anesthesia Postop Eval I Summary Anesthesia Postop Eval I Summary: Anesthesia Postop Eval I: Assessment Summary Airway patent Yes 06/08/25 16:53 MECHANICAL PROCESS [email or web address].[email or web address] Spontaneous unlabored Yes 06/08/25 16:53 MECHANICAL PROCESS ENGINEER.NFOR respirations Mental status Awake,Calm 06/08/25 16:53 MECHANICAL PROCESS ENGINEER.NFOR nausea No 06/08/25 16:53 MECHANICAL PROCESS ENGINEER.NFOR Vomiting No 06/08/25 16:53 MECHANICAL PROCESS [email or web address].NFOR Anesthesia Postop Eval I: Fluid Summary Crystalloid volume administer 900 06/08/25 16:53 MECHANICAL PROCESS ENGINEER.NFOR (ml) Colloids volume administered ( ml) Blood Product volume administered (ml) Total IV fluid infused 900 06/08/25 16:53 MECHANICAL PROCESS ENGINEER.NFOR Anesthesia Postop Eval I: Summary Notes Anesthesia Complication No 06/08/25 16:53 MECHANICAL PROCESS [email or web address].NFOR Anesthesia Complication Comment: Post-operative progress note Anesthesia: Postop Eval II Evaluation Mental status: Awake Pain Level: 2 nausea: No Vomiting: No
--- NOTE | 2025-06-08 16:59 | PCM.POSTANE2 ---
Anesthesia Postop Eval I Sum Postop Eval Completion status Anesthesia document: Postop Eval 1 completed: Yes Anesthesia Postop Eval I Summary Anesthesia Postop Eval I Summary: Anesthesia Postop Eval I: Assessment Summary Airway patent Yes 06/08/25 16:53 CASE [email or web address] Spontaneous unlabored Yes 06/08/25 16:53 CASE [email or web address] respirations Mental status Awake,Calm 06/08/25 16:53 CASE [email or web address].[email or web address] nausea No 06/08/25 16:53 CASE PACKER.NFOR Vomiting No 06/08/25 16:53 CASE [email or web address].NFOR Anesthesia Postop Eval I: Fluid Summary Crystalloid volume administer 900 06/08/25 16:53 CASE PACKER.NFOR (ml) Colloids volume administered ( ml) Blood Product volume administered (ml) Total IV fluid infused 900 06/08/25 16:53 CASE [email or web address] Anesthesia Postop Eval I: Summary Notes Anesthesia Complication No 06/08/25 16:53 CASE [email or web address].NFOR Anesthesia Complication Comment: Post-operative progress note Anesthesia: Postop Eval II Evaluation Mental status: Awake Pain Level: 2 nausea: No Vomiting: No
[2025-06-08] MEDS: LR 1,000 ML - BOLUS POSTOP 999 ML IV (17:04)
--- NOTE | 2025-06-08 17:20 | RAD_ITS ---
PROCEDURE: HIP MIN 2 VIEWS (PORTABLE) 06/08/2025 REASON FOR EXAM: POST OP TECHNIQUE: Procedure Code: RADH_P Modality: DX Procedure: HIP MIN 2 VIEWS (PORTABLE) Laterality: Right COMPARISON: 12/04/2024 FINDINGS: Interval postoperative changes of right total hip arthroplasty, with proximal cerclage wires. Pre-existing left total hip arthroplasty. No evidence for hardware loosening or failure. Alignment is anatomic. No acute fracture or dislocation appreciated. Presumed postoperative soft tissue swelling and air about the right hip with overlying skin jaci. RAD/Hip Min 2 Views (Portable) IMPRESSION: Postoperative changes of total hip arthroplasties. No unexpected findings. Reading Location: [id number]
--- NOTE | 2025-06-08 20:09 | PCM.CONS.GEN ---
Assessment & Plan Assessment/Plan (1) Right hip pain: PLAN: Plan 89-year-old female is being admitted after elective right revision total hip replacement, both compartments 1. Perioperative management of right revision total hip replacement both compartments: Surgery was done today, 06/08/2025 for failed right total hip replacement, acetabular aseptic loosening. Patient has not voided urine. Advised bladder scanning every 3-4 hour and if more than 200 mL, straight cath. Patient is on diaper. Passing flatus. Incentive spirometry. Pain control, PT and OT. 2. Elevated BP, not formal diagnosis of hypertension: Her BP fluctuates. Most recent BP 122/65. Her BP fluctuates between 152/58 to 101-121 systolic in afternoon. IV hydralazine as needed ordered. Advised ambulatory or home BP monitoring to diagnose hypertension and consultation with PCP 3. Degenerative arthritis and osteoporosis: Patient on zoledronic acid, protein supplement at home. 4. Nonrheumatic tricuspid valve regurgitation: Soft systolic murmur present. 2D echo 03/21/2019 as mentioned below. Interpretation Summary Normal LV size. Left ventricular systolic function is normal. The estimated ejection fraction is 55 %. Stage 1 diastolic dysfunction. Mild tricuspid valve insufficiency. PASP 30 mmHg. Normal pulmonic valve. 5. Dyslipidemia: The patient not on any statin. Advised fasting lipid profile as an outpatient. 6. DVT prophylaxis: On aspirin 81 mg p.o. twice daily. HPI Consult Data Date of Consult: 06/08/25 HPI Narrative HPI Narrative: LEW HUDSON, is a 89 F is being admitted after elective revision total replacement of right hip, both compartments. 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 Patient denies any acute symptoms of chest pain or shortness of breath. As per nursing staff patient has not voided urine but she is on diaper and is instruction for bladder scan. She had bowel movement yesterday 2-3 times. Patient is a non-smoker. Past medical history degenerative arthritis, GERD and pancreatic pseudocyst, dyslipidemia and macular degeneration. [facility] Medical History (Updated 06/08/25 @ 21:[address] Atif Ndiaye MD) Right hip pain Wears glasses Arthritis History of GI bleed Non-smoker Pseudocyst of pancreas Depression Fall Left hip pain Right knee pain Bilateral shoulder pain Pericardial effusion Nonrheumatic tricuspid valve regurgitation Hemorrhoids Idiopathic thrombocythemia Vertigo Osteoporosis Osteoarthritis Hyperlipidemia Macular degeneration GERD (gastroesophageal reflux disease) Secondary pulmonary arterial hypertension Nodule of left lung Pancreatic cyst Goiter Vitamin D deficiency Home Medications ?Medication ?Instructions ?Recorded ?Last Taken ?Type albuterol sulfate 90 mcg/actuation 1 puff inhalation Q6H PRN Sob &/Or 02/26/18 Unknown History aerosol inhaler (Ventolin HFA) Wheezing calcium 250 mg (phosphate)-vit D3 1 tab PO DAILY SUPPLEMENT 02/26/18 12/07/22 History 12.5 mcg (500 unit) chewable tablet (Citracal-D3 Gummies) docusate sodium 100 mg capsule 100 mg PO BID CONSTIPATION 02/26/18 06/03/25 History (Stool Softener) fluticasone propionate 50 1 spray intranasal DAILY PRN 02/26/18 06/07/25 History mcg/actuation nasal Allergies spray,suspension (Flonase Allergy Relief) hydroxyurea 500 mg capsule 500 mg PO MOTUWETHFRSA BONE MARROW 09/14/22 06/06/25 History meclizine 25 mg chewable tablet 25 mg PO DAILY PRN PRN dizziness 01/07/23 Unknown History (Antivert) cetirizine 10 mg tablet (Zyrtec) 10 mg PO DAILY PRN ALLERGIES 07/20/23 Unknown History cyanocobalamin (vitamin B-12) 1,000 mcg PO DAILY SUPPLEMENT 07/20/23 06/03/25 History 1,000 mcg tablet inulin-chromium picolinate 2 3 tab PO DAILY SUPPLEMENT 07/20/23 06/03/25 History gram-100 mcg chewable tablet (Fiber Select Gummies) guaifenesin 600 mg tablet, 600 mg PO BID Cough 04/01/24 06/03/25 History extended release 12 hr (Mucinex) acetaminophen 500 mg tablet 1,000 mg PO BID PAIN 03/19/25 06/07/25 History bisacodyl 5 mg tablet,delayed 5 mg PO BID CONSTIPATION 03/19/25 06/03/25 History release (Dulcolax (bisacodyl)) cholecalciferol (vitamin D3) 25 500 unit PO DAILY SUPPLEMENT 03/19/25 06/07/25 History mcg (1,000 unit) tablet (Vitamin D3) nutritional supplements (Nutra Pro ea PO BID SUPPLEMENT 05/11/25 Unknown History High Protein oral powder) protein supplement 30 ml PO .QD SUPPLEMENT 05/11/25 Unknown History zoledronic acid 5 mg/100 mL in 1 ea .Route .Q2YEAR BONE 05/14/25 Unknown History mannitol 5 %-water intravenous piggybck (Reclast) Allergy/AdvReac Type Severity Reaction Status Date / Time ciprofloxacin (From Cipro) Allergy Itching Verified 06/08/25 11:59 amoxicillin AdvReac Upset Verified 06/08/25 11:59 Stomach atorvastatin (From Lipitor) AdvReac myalgias Verified 06/08/25 11:59 clarithromycin (From Biaxin) AdvReac Vomiting Verified 06/08/25 11:59 thiopental (From Pentothal) AdvReac Nausea Verified 06/08/25 11:59 Family History Brother CAD (coronary artery disease) Diabetes Father Diabetes Myocardial infarction Mother , 94 due pneumonia No problems noted. 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 No fever. HEENT: Reports systems reviewed and no addt'l complaints, except as documented Respiratory/Chest: Non-smoker. No acute shortness of breath or respiratory distress or wheezing. CVS: Denies chest pain or shortness of breath. Denies CAD/UT or cardiac stent. Gastrointestinal: Denies coffee ground emesis, hematemesis or vomiting Genitourinary: Denies burning urination or new urinary tract symptoms Musculoskeletal: Chronic degenerative arthritis. Rest as described in HPI. Neurologic: Denies seizure-like symptoms. skin: No ulcer. No rash Endocrinology: Reports systems reviewed and no addt'l complaints, except as documented Hematologic/Lymphatic: Reports systems reviewed and no addt'l complaints, except as documented Rest 14 ROS are negative except as mentioned in HPI Lab / Micro Data 05/21/25 10:35 05/21/25 10:35 Labs: Laboratory Results - last 24 hr 06/08/25 12:03: POC Glucose 84 Imaging Radiology Impression Hip X-Ray 06/08/25 17:20 IMPRESSION: Postoperative changes of total hip arthroplasties. No unexpected findings. Reading Location: [id number] Charges/Coding Visit Charges Office Visits / Consults: 69119 OV L4 New 45min
[2025-06-08] MEDS: LR 1,000 ML - 125 ML/HR (POST BOLUS) POST OP IV (20:37)
[2025-06-08] MEDS: Senna/Docusate Sodium 1 Tablet 2 TABLET PO (21:39)
[2025-06-08] MEDS: Cefazolin 1 GM/50 ML BAG IV (21:39)
[2025-06-09 02:34] VITALS: BP 105/48; PULSE 70; RESP 16; TEMP 36.6; O2SAT 96
[2025-06-09] MEDS: Cefazolin 1 GM/50 ML BAG IV (05:03)
[2025-06-09 06:33] LABS: Hematocrit 33.6 % (37-47); Hemoglobin 11.2 g/dL (12.0-15.0); Immature Granulocytes Count 0.030 X10^3/uL (0.0-0.0); Mean Corp Hgb Conc 33.3 g/dL (32-36); Mean Corpuscular Volume 103.1 fL (81-99); Mean Platelet Vol. 9.3 fl (6.2-12.0); NRBC Flagged by Analyzer 0 % (0-5); Platelet Count 339 K/mm3 (150-450); RBC Distribution Width CV 14.2 % (11.6-14.6); RBC Distribution Width SD 53.6 fl (35.1-43.9); Red Blood Count 3.26 M/mm3 (4.2-5.4); White Blood Count 9.2 K/mm3 (4.4-11.0)
[2025-06-09 07:12] LABS: Anion Gap 11 (5-15); BUN 18 mg/dL (4-19); BUN/Creat Ratio 34.4 RATIO (10-20); Calcium,Total 8.3 mg/dL (7.6-11.0); Carbon Dioxide 18.1 mmol/L (21.0-32.0); Chloride 101 mmol/L (98-108); Estimated Creatinine Clearance 37.21 ml/min (50-250); Glucose 128 mg/dL (70-99); Potassium 4.5 mmol/L (3.3-5.1)
[2025-06-09] MEDS: Senna/Docusate Sodium 1 Tablet 2 TABLET PO ×2 (08:11→21:48)
[2025-06-09] MEDS: Cholecalciferol (VIT D3) 25 MCG TABLET (1,000 UNITS) 12.5 MCG PO (08:11)
[2025-06-09] MEDS: Calcium Carb/Vitamin D 1 TABLET Tablet PO (08:13)
[2025-06-09] MEDS: Ensure Surgery 237 ML LIQUID PO (08:14)
[2025-06-09 08:20] VITALS: BP 103/53; PULSE 70; RESP 16; TEMP 36.8; O2SAT 99
--- NOTE | 2025-06-09 09:03 | PCM.PN.HOSP ---
Subjective Subjective Doing well, no issues overnight. Pain is controlled Objective Data Objective Data Vital Signs: Vital Signs Temp Pulse Resp BP Pulse Ox O2 Del Method O2 Flow Rate 98.3 F 70 16 103/53 L 99 Room Air 4 06/09/25 08:20 06/09/25 08:20 06/09/25 08:20 06/09/25 08:20 06/09/25 08:20 06/09/25 08:20 06/09/25 02:33 Oxygen Flow Rate (L/min) 4 Oxygen Delivery Method Room Air Weight: 122 lb Body Mass Index (BMI) 23.8 Intake & Output: Intake and Output for Last 24 Hours 06/08/25 06/09/25 06/10/25 03:59 03:59 03:59 Intake Total 2202 / 2202 1050 / 1050 Output Total 800 / 800 Balance 1402 / 1402 1050 / 1050 Lab / Micro Data 06/09/25 06:05 06/09/25 06:05 Labs: Laboratory Results - last 24 hr 06/08/25 12:03: POC Glucose 84 06/09/25 06:05: WBC 9.2, RBC 3.26 L, Hgb 11.2 L, Hct 33.6 L, MCV 103.1 H, MCH 34.4 H, MCHC 33.3, RDW Std Deviation 53.6 H, RDW Coeff of Cyril 14.2, Plt Count 339, MPV 9.3, Immature Gran % (Auto) 0.300, Neut % (Auto) 79.7 H, Lymph % (Auto) 8.8 L, [place] % (Auto) 10.9 H, Eos % (Auto) 0.1, Baso % (Auto) 0.2, Absolute Neuts (auto) 7.4, Absolute Lymphs (auto) 0.81 L, Nucleated RBC % 0, Sodium 130 L, Potassium 4.5, Chloride 101, Carbon Dioxide 18.1 L, Anion Gap 11, BUN 18, Creatinine 0.51 L, Estim Creat Clear Calc 37.21 L, Est GFR (MDRD) Non-Af 89, BUN/Creatinine Ratio 34.4 H, Glucose 128 H, Calcium 8.3 Micro: Microbiology 05/21/25 10:35 Swab (Method) Nasal Screen MRSA/MSSA - Final Radiography Diagnostic Testing: Radiology Impression Hip X-Ray 06/08/25 17:20 IMPRESSION: Postoperative changes of total hip arthroplasties. No unexpected findings. Reading Location: [facility] Physical Exam Narrative General: Alert, Oriented x3, Cooperative, No apparent distress HEENT: Atraumatic, PERRLA, EOMI, Normocephalic Oral: Moist Mucosa Neck: Supple, No JVD Lungs: Diminished, Normal air movement, No rhonchi, No wheeze, No rales Cardiovascular: Regular rate, Regular Rhythm, Normal S1, Normal S2, No murmurs Abdomen: Soft, Non Tender, Non-Distended, No Hepato-splenomegaly Extremities: No edema, Capillary Refill Less than 3 Seconds Skin: No rashes, No breakdown, dressing CDI Musculoskeletal: No Tenderness to Palpation of Joints or Extremities Neurological: No focal neurological deficits, moves all extremities Psych/Mental Status: Normal Affect, Appropriate Assessment & Plan Assessment/Plan (1) Right hip pain: PLAN: Plan 1. Status post right total knee revision on 06/08/2025 ? PT/OT ? Pain management per primary ? Medically stable for discharge at this time will sign off 2. Limited outpatient medical history most of her medications are either OTC or supplements. Can continue DVT: Aspirin twice daily Charges/Coding Visit Charges Inpatient E&M: 31842 [facility] Hosp L2
--- NOTE | 2025-06-09 09:07 | PCM.PN.ORT ---
Subjective Subjective Patient is sitting comfortably in bed upon examination. Patient states that she is doing really well and that her pain is adequately controlled at this point. Patient has been up and to the restroom. Patient states that she lives alone and she does not feel comfortable with going home at this point. Patient is interested in going to rehab or at the TCU to begin recovering before returning home on her own. Patient has not yet worked with physical therapy at this point. Patient denies any new nausea vomiting dizziness. Patient denies any new numbness or tingling. Patient denies any shortness of breath, chest pain, calf pain. Patient denies any adverse events overnight. Objective Data Objective Data Vital Signs: Vital Signs Temp Pulse Resp BP Pulse Ox O2 Del Method O2 Flow Rate 98.3 F 70 16 103/53 L 99 Room Air 4 06/09/25 08:20 06/09/25 08:20 06/09/25 08:20 06/09/25 08:20 06/09/25 08:20 06/09/25 08:20 06/09/25 02:33 Oxygen Flow Rate (L/min) 4 Oxygen Delivery Method Room Air Weight: 55.338 kg Body Mass Index (BMI) 23.8 Intake & Output: Intake and Output for Last 24 Hours 06/07/25 06/08/25 06/09/25 23:59 23:59 23:59 Intake Total 2202 / 2202 1050 / 1050 Output Total 300 / 800 500 / 500 Balance 1902 / 1402 550 / 550 Lab / Micro Data 06/09/25 06:05 06/09/25 06:05 Labs: Laboratory Results - last 24 hr 06/08/25 12:03: POC Glucose 84 06/09/25 06:05: WBC 9.2, RBC 3.26 L, Hgb 11.2 L, Hct 33.6 L, MCV 103.1 H, MCH 34.4 H, MCHC 33.3, RDW Std Deviation 53.6 H, RDW Coeff of Cyril 14.2, Plt Count 339, MPV 9.3, Immature Gran % (Auto) 0.300, Neut % (Auto) 79.7 H, Lymph % (Auto) 8.8 L, [place] % (Auto) 10.9 H, Eos % (Auto) 0.1, Baso % (Auto) 0.2, Absolute Neuts (auto) 7.4, Absolute Lymphs (auto) 0.81 L, Nucleated RBC % 0, Sodium 130 L, Potassium 4.5, Chloride 101, Carbon Dioxide 18.1 L, Anion Gap 11, BUN 18, Creatinine 0.51 L, Estim Creat Clear Calc 37.21 L, Est GFR (MDRD) Non-Af 89, BUN/Creatinine Ratio 34.4 H, Glucose 128 H, Calcium 8.3 Micro: Microbiology 05/21/25 10:35 Swab (Method) Nasal Screen MRSA/MSSA - Final Radiography Diagnostic Testing: Radiology Impression Hip X-Ray 06/08/25 17:20 IMPRESSION: Postoperative changes of total hip arthroplasties. No unexpected findings. Reading Location: [id number] Physical Exam Narrative VASQUEZ hose in place bilaterally SCDs in place bilaterally Dressing is clean, dry, intact. Right hip is soft and supple. Dorsiflexion and plantarflexion are performed actively without pain or restriction Sensation intact light touch. Neurovascularly intact overall. Negative Homans bilaterally. 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 1. DVT prophylaxis: Patient will be on aspirin 81 mg twice daily for 4 weeks postoperatively. Patient will be wearing VASQUEZ hose for 2 weeks postoperatively. Patient does not take anti-inflammatory medications due to history of GI bleed. 2. Pain medications: Patient will be taking Tylenol 1000 mg every 8 hours, oxycodone as needed for postoperative pain control. Will avoid anti-inflammatory medications in this patient due to history of GI bleed. 3. Physical therapy: Patient will continue to be weightbearing as tolerated with physical therapy. Patient was educated on posterior hip precautions. Patient was educated she needs to follow his posterior precautions at this time. 4. Constipation: Patient was instructed to take senna until her first bowel movement and then can decrease to as needed. Patient was educated they do not have a bowel movement within 3 days to contact our office. 5. H&H: 11.2/33.6. Vital signs are stable and patient is afebrile at this time. 6. Patient was educated on posterior hip precautions today. 7. Microbiology: Cultures and Gram stains are currently pending at this time. Will continue to watch. 8. Incentive spirometry: Patient was encouraged to use incentive spirometer every hour therapy for first week to exercise along decrease risk. Urinary infection. 9. Dressings: Patient was educated she will have waterproof dressing for 5 days. Patient was educated she can take it off on postop day 5 which is Sunday. Patient was educated she can leave open to air after this. 10. Patient is to follow-up for postoperative medication instructions. 11. Medicine is involved at this time for safe and proper discharge. 12. Patient will need a follow-up appointment with our office in 2 weeks. 13. Patient is okay for discharge today as long as pain maintains adequately controlled, patient works with and does well with physical therapy, and is okay per medicine doctor and case management instructions at this point. Patient was educated she will continue to be weightbearing as tolerated with physical therapy. Patient was educated on following posterior precautions at this time. Patient would like to go to either rehab or TCU for treatment before returning home as patient lives alone and her house is not conducive to being alone with walker. Patient does not feel stable at her hospice staff. Patient did need to be straight cathed last night in order to urinate. Patient has since urinated on her own. We will plan to keep patient while planning for safe and proper discharge at this time. Patient may require a 3 night minimum depending on where she will plan to be discharged to. We will plan to send patient's medications to patient's pharmacy of choice once discharge is planned. Patient was encouraged to call with any questions, concerns, new problems.
--- NOTE | 2025-06-09 11:40 | CASEMGMT ---
ESE GONZALEZ Assessment Face to Face with patient for initial transition planning/care coordination assessment. ESE GONZALEZ introduced self and role at [facility], pt voices understanding. Pt is A&Ox4 and is resting comfortably in the chair and is calm. Care providers, pharmacy, and demographics verified. Admitting dx: Revision Right Total Hip LACE Strata: 1 PCP: Nathan Vanegas Specialists: Kaleigh (Podiatry) [facility]erred Pharmacy: [facility] Insurance: MCR A/B, MMO Prescription Benefit: Yes LNOK: Marielle (Dtr), Xiang (Son) Living Arrangements: Pt lives alone in a single story condo with a flat entrance ADLs/IADLs: Pt states that she is indep at baseline but not currently feel safe returning home. Current 6-click score is 14 and PT is pending Transportation: Pt does not drive. Pt's daughter drives her DME: [employer] HHC/SNF: Hx with [facility] and Hx @ [facility] Pt?s goal: Return to PLOF Plan: Anticipate SN vs inpt RU. Pt states that she does not feel safe returning home alone and that she would like to go to a SNF for further therapy prior to returning home. Pt is aware of the 3 [place] MCR rule. This ESE GONZALEZ informed the pt of the [facility] RU. Pt states that she thinks that she could handle x3 hours of therapy a day and would prefer this. If [facility] is unable to accept, pt states that she prefers the following SNFs: 1.) [facility]CU, 2.) [place], and 3.) [facility]. Inquired if the pt would also like to review a list of other SNFs that are local and in-network with the pt's insurance. Pt states that she would like this and wants to review the list with her daughter later. List provided. Pt denies further questions or concerns at this time. Report given to MS3 ESE GONZALEZ. Sukhdeep Prater RN, CM
[2025-06-09 11:46] VITALS: BP 99/55; PULSE 78; RESP 16; TEMP 36.4; O2SAT 94
--- NOTE | 2025-06-09 12:24 | CASEMGMT ---
Discharge Planning A list of?SNF providers including quality and resource use data and consistent with the patient's preferred geographic region, medical needs, and insurance network was created in [facility] Guide.? This list was provided to the RN CARLOS. Shira Nieves, Discharge Planning Asst.
--- NOTE | 2025-06-09 12:38 | CASEMGMT ---
Addendum entered by Opal Tang 06/09/25 13:22: Pt is accepted to [facility] Rehab unit tomorrow if Na is 130 or higher with repeat BMP in the morning. Updated Tabitha MORIN. Original Note: Referral made to [facility] Rehab unit at this time.
--- NOTE | 2025-06-09 12:49 | CHAPLAIN ---
Type of Pastoral Visit _x__ Initial Visit ___ Follow-up Visit ___ On-call Visit ___ General Patient Visit ___ Spiritual Assessment ___ Family Conference ___ Bereavement ___ Rapid Response ___ Code Blue ___ Other (describe below) Pastoral Care Referral From _x__ Patient ___ Family ___ Nurse ___ Physician ___ Carton Counter Feeder ___ Clinical Research Nurse Coordinator ___ Other (describe below) Sacrament/Intervention _x__ Active listening ___ Anointing ___ Advent ___ Bereavement ___ Communion ___ Sujata exploration ___ _x__ Life review _x__ Prayer ___ Reconciliation ___ Sacrament of Sick _x__ Supportive presence ___ Wedding ___ Other (describe below) Pastoral Comments this patient had been seen before as well as her in the past; pt gives her status with the surgery and recovery that has begun; pt gives more family updates and how she is coping since the of her almost two years ago; pt looks back on life as being 'a good one'; pt welcomes prayer and presence
[2025-06-09 16:43] VITALS: BP 106/50; PULSE 73; RESP 16; TEMP 36.7; O2SAT 96
[2025-06-09 21:47] VITALS: BP 129/51; PULSE 75; RESP 16; TEMP 36.9; O2SAT 95
[2025-06-10 03:03] VITALS: BP 131/43; PULSE 71; RESP 16; TEMP 36.4; O2SAT 97
[2025-06-10] MEDS: Calcium Carb/Vitamin D 1 TABLET Tablet PO (09:32)
[2025-06-10] MEDS: Senna/Docusate Sodium 1 Tablet 2 TABLET PO (09:34)
[2025-06-10] MEDS: Cholecalciferol (VIT D3) 25 MCG TABLET (1,000 UNITS) 12.5 MCG PO (09:34)
[2025-06-10] MEDS: Ensure Surgery 237 ML LIQUID PO (09:36)
[2025-06-10 10:01] VITALS: BP 107/50; PULSE 81; RESP 18; TEMP 36.7; O2SAT 94
[2025-06-10 10:54] LABS: Anion Gap 9 (5-15); BUN 14 mg/dL (4-19); BUN/Creat Ratio 27.7 RATIO (10-20); Calcium,Total 8.8 mg/dL (7.6-11.0); Carbon Dioxide 21.6 mmol/L (21.0-32.0); Chloride 101 mmol/L (98-108); Estimated Creatinine Clearance 37.21 ml/min (50-250); Glucose 130 mg/dL (70-99); Potassium 4.2 mmol/L (3.3-5.1)
--- NOTE | 2025-06-10 11:11 | PN.ORTHO_ITS ---
Subjective Subjective The patient was sitting in bedside chair upon examination. Patient denies any chest pain, shortness of breath, dizziness, lightheadedness, nausea or vomiting, or calf pain. Patient states when she is up walking she has increased pain in the right hip. She is primarily only using Tylenol with very occasional oxycodone. She thinks her last oxycodone was at 1:30 AM. At rest her pain is improved. There was concern with patient going home and we do have approval for patient to go to the fourth floor rehabilitation unit at [facility]. Objective Data Objective Data Vital Signs: Vital Signs Temp Pulse Resp BP Pulse Ox O2 Del Method O2 Flow Rate 98.1 F 81 18 107/50 L 94 Room Air 4 06/10/25 10:01 06/10/25 10:01 06/10/25 10:01 06/10/25 10:01 06/10/25 10:01 06/10/25 10:01 06/09/25 02:33 Oxygen Flow Rate (L/min) 4 Oxygen Delivery Method Room Air Weight: 55.338 kg Body Mass Index (BMI) 23.8 Intake & Output: Intake and Output for Last 24 Hours 06/08/25 06/09/25 06/10/25 23:59 23:59 23:59 Intake Total 2202 / 2202 2300 / 2300 200 / 200 Output Total 300 / 800 500 / 500 Balance 1902 / 1402 1800 / 1800 200 / 200 Lab / Micro Data 06/09/25 06:05 06/10/25 10:19 Labs: Laboratory Results - last 24 hr 06/10/25 10:19: Sodium 132 L, Potassium 4.2, Chloride 101, Carbon Dioxide 21.6, Anion Gap 9, BUN 14, Creatinine 0.52 L, Estim Creat Clear Calc 37.21 L, Est GFR (MDRD) Non-Af 89, BUN/Creatinine Ratio 27.7 H, Glucose 130 H, Calcium 8.8 Micro: Microbiology 06/08/25 16:15 Tissue - Hip Gram Stain - Final 06/08/25 16:15 Tissue - Hip Gram Stain - Final 06/08/25 16:15 Tissue - Hip Gram Stain - Final 05/21/25 10:35 Swab (Method) Nasal Screen MRSA/MSSA - Final Physical Exam Narrative Vital signs stable and afebrile. SCDs and VASQUEZ hose are in place bilaterally Right thigh is soft and supple Patient is able to plantarflex and dorsiflex actively. Sensation is intact to light touch to saphenous, sural, superficial and deep peroneal, and tibial distribution. Dressing has mild discharge of the middle/distal one third, has been stable. Negative Homans bilaterally, negative signs and symptoms of DVT. 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 1. DVT prophylaxis: Patient will be on aspirin 81 mg twice daily for 4 weeks postoperatively. Patient will be wearing VASQUEZ hose for 2 weeks postoperatively. Patient does not take anti-inflammatory medications due to history of GI bleed. 2. Pain medications: Patient will be taking Tylenol 1000 mg every 8 hours, oxycodone as needed for postoperative pain control. Will avoid anti- inflammatory medications in this patient due to history of GI bleed. I did explain to the patient and family who came in later that is important that she maintains adequately controlled pain. Patient states she has some increased pain today but is only been using Tylenol. I would recommend she is using the oxycodone for breakthrough pain. She did voiced understanding. 3. Physical therapy: Patient will continue to be weightbearing as tolerated with physical therapy. Patient was educated on posterior hip precautions. Patient was educated she needs to follow his posterior precautions at this time. 4. Constipation: Patient was instructed to take senna until her first bowel movement and then can decrease to as needed. Patient was educated they do not have a bowel movement within 3 days to contact our office. 5. Repeat labs today show improvement with sodium currently at 132. Medicine signed off yesterday and stated patient was medically stable. Will repeat labs in 3 days at the floor rehabilitation unit. 6. Patient was educated on posterior hip precautions today. Continue posterior hip dislocation precautions for 3 months postoperatively. 7. Currently on doxycycline for 2 weeks postoperatively. Microbiology wound and tissue specimens were reviewed in chart and there is currently no growth or organisms seen today. I discussed with the patient potential side effects of doxycycline including sensitivity to the sunlight and increased risk of skin burn. Recommend patient take appropriate precautions. Also recommend patient to take probiotic while on the antibiotic. Patient voiced understanding agreement. 8. Patient is aware of postoperative constipation that can occur from 1-3 days postoperatively. Will continue with senna 2 tablets twice daily until first bowel movement. Patient was advised if not having a bowel movement after day 3 she is to contact orthopedics so appropriate change can be made. Patient voiced understanding. 9. Continue postoperative medical treatment per medicine: Medicine signed off the patient yesterday. Her sodium has improved to 132 today. She is asymptomatic. 10. Disposition: Orthopedically patient is stable. She has done well with physical therapy. Her pain is controlled when she takes the medications. Her sodium has improved and currently 132. I would recommend repeat labs in 3 days. Patient will continue above pain regimen and DVT prophylaxis plan. We discussed the aspirin 81 mg at her previous history of gastric bleed. We are placing her on medication to help with this. We also discussed that placing her on stronger anticoagulation may put her at risk as well. She did voiced understanding. If she has any symptoms she will contact our office or let medicine know while at the fourth floor rehab. Plan will be for discharge today over to the [facility] fourth floor rehabilitation unit. Prescription will be attached to the chart for the narcotic. Patient will follow-up per our postoperative instructions. Upon discharge she will contact our office with any concerns or questions. We discussed recovery which can take time and therapy is vital for her improvement. I did explain to her it can take up to a year to see full recovery. She is complaining of some right knee pain which I do feel may be compensation with how she has been walking. If we need to work this up in the future we will do so. Voiced understanding and agreement. I have reviewed the [place] Automated Rx Reporting System (OARRS) report for this patient for refill pattern and other prescriber involvement as part of the appropriate surveillance for the provision of acute and chronic controlled medications. The report was requested and reviewed on the date of this entry and was considered in the prescribing process. This dictation was created using voice recognition software. Phonetic and/or grammatical errors may exist.
--- NOTE | 2025-06-10 11:20 | PCM.DC ---
Discharge Instructions DC O2, CPAP, BIPAP needs Home O2 Discharge instructions: No Dressing / Incision Discharge Activity: May Not Drive (No driving for 6 weeks postoperatively. Must also be off all narcotics and able to walk 100 feet without the use of cane or walker.) May shower in (days): 1 (only if incision is dry and without drainage. Do NOT soak/submerge in tub/pool/harrison/stream/hot tub.)) Ice area for (Minutes): 20 (Every 1-2 hours while [address] barrier between ice and skin.) Weight Bearing Status: Weight bearing as tolerated Keep extremity elevated above heart level: Operative Extremity Dressing / Incision Call your doctor if your incision/area has: Continuous Slow Oozing, Sudden Increased Bleeding, Increased Pain/ Swelling, Increased Redness and Foul Smelling Discharge Call your doctor if you observe: Fever of 101 or Higher, Shortness of breath, Chest pain, Calf discomfort and Uncontrolled pain Remove Dressing in: 3 days (Remove Mepilex dressing on June 13, 2025.) Cleanse incision/area with: Soap & Water Additional Dressing/Incision Instructions:: Follow [facility] Post-op Instructions. Once postoperative dressing has been removed, only use gentle soap and water over the incision. Do not use any ointments, Neosporin, salves, alcohol pads over the incision for 6 weeks postoperatively. Do not submerge underwater for 6 weeks postoperatively. Continue antibiotic doxycycline as prescribed for 2 weeks postoperatively while following cultures. Continue with VASQUEZ hose/elastic stockings for 2 weeks postoperatively. May remove at nighttime but needs to be placed back on the leg during the day. Do NOT use alcohol with narcotic pain medication. Do NOT make important decisions while taking narcotic medication. If you have problems with taking your medication (rash, itching, nausea, etc.) call the office at once. Follow Up Care Test Results: Test results from this visit will be discussed in further detail at your follow-up appointment, if applicable. Discharge Plan Admission Admit Date/Time: 06/08/25 16:40 Attending Provider: Mic Mallory Primary Care Provider: Nathan Vanegas Consulting Providers: Armond Lott Discharge Orders/Prescriptions Prescriptions: New acetaminophen 500 mg Tablet 1,000 mg PO Q8 14 Days Qty: 84 0RF Rx Instructions: Do not take more than 3000 mg Tylenol in a 24-hour period. aspirin 81 mg tablet 81 mg PO BIDCM 30 Days Qty: 60 0RF Rx Instructions: Take 81 mg aspirin twice daily for 4 weeks postoperatively for DVT prophylaxis. famotidine 20 mg Tablet 20 mg PO DAILY 30 Days Qty: 30 0RF Rx Instructions: Take four 1 month postoperatively while using the aspirin for DVT prophylaxis doxycycline monohydrate 100 mg Capsule 100 mg PO BID 14 Days Qty: 28 0RF Rx Instructions: Take for 2 weeks postoperatively oxycodone 5 mg Tablet 5 - 10 mg PO Q4H PRN PRN (Reason: as needed for pain) 7 Days Qty: 36 0RF sennosides-docusate sodium [Stimulant Laxative Plus] 8.6-50 mg Tablet 2 tab PO BID 2 Days Qty: 8 0RF Rx Instructions: Take until first bowel movement, then as needed Continued calcium phosphate-vitamin D3 [Citracal-D3 Gummies] 250 mg calcium- 500 unit tablet,chewable 1 tab PO DAILY fluticasone propionate [Flonase Allergy Relief] 50 mcg/actuation spray,suspension 1 spray INTRANASAL DAILY PRN (Reason: Allergies) docusate sodium [Stool Softener] 100 mg capsule 100 mg PO BID albuterol sulfate [Ventolin HFA] 90 mcg/actuation HFA aerosol inhaler 1 puff INHALATION Q6H PRN (Reason: Sob &/Or Wheezing) hydroxyurea 500 mg capsule 500 mg PO MOTUWETHFRSA guaifenesin [Mucinex] 600 mg tablet extended release 12hr 600 mg PO BID zoledronic [id number] [Reclast] 5 mg/100 mL piggyback 1 ea .Route .Q2YEAR Rx Instructions: Every other year cyanocobalamin (vitamin B-12) 1,000 mcg tablet 1,000 mcg PO DAILY Fiber Select Gummies 2-100 gram-mcg tablet,chewable 3 tab PO DAILY Patient Comments: 2 tabs in morning, 1 at dinner cetirizine [Zyrtec] 10 mg tablet 10 mg PO DAILY PRN (Reason: ALLERGIES) meclizine [Antivert] 25 mg tablet,chewable 25 mg PO DAILY PRN PRN (Reason: dizziness) bisacodyl [Dulcolax (bisacodyl)] 5 mg tablet,delayed release (DR/EC) 5 mg PO BID cholecalciferol (vitamin D3) [Vitamin D3] 25 mcg (1,000 unit) tablet 500 unit PO DAILY protein supplement Liquid 30 ml PO .QD Nutra Pro High Protein Powder PO BID Rx Instructions: PT TO START FOLLOWING SURGERY FOR 14 DAYS BID Discontinued acetaminophen 500 mg Tablet 1,000 mg PO BID Referrals / Follow Up: Nathan Vanegas DO [Primary Care Provider, [facility]] Landry Pearson PA-C [Med Staff - [facility] Prof, Orthopedics] - 06/22/25 2:15 pm Disposition Disposition (needs filled in before D/C Order can be placed): Inpatient Rehab Unit/Facility
--- NOTE | 2025-06-10 11:30 | PCM.DC.SUM ---
Providers Date of Admission: 06/08/25 Primary Care Physician: Dr. 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 1. DVT prophylaxis: Patient will be on aspirin 81 mg twice daily for 4 weeks postoperatively. Patient will be wearing VASQUEZ hose for 2 weeks postoperatively. Patient does not take anti-inflammatory medications due to history of GI bleed. 2. Pain medications: Patient will be taking Tylenol 1000 mg every 8 hours, oxycodone as needed for postoperative pain control. Will avoid anti-inflammatory medications in this patient due to history of GI bleed. I did explain to the patient and family who came in later that is important that she maintains adequately controlled pain. Patient states she has some increased pain today but is only been using Tylenol. I would recommend she is using the oxycodone for breakthrough pain. She did voiced understanding. 3. Physical therapy: Patient will continue to be weightbearing as tolerated with physical therapy. Patient was educated on posterior hip precautions. Patient was educated she needs to follow his posterior precautions at this time. 4. Constipation: Patient was instructed to take senna until her first bowel movement and then can decrease to as needed. Patient was educated they do not have a bowel movement within 3 days to contact our office. 5. Repeat labs today show improvement with sodium currently at 132. Medicine signed off yesterday and stated patient was medically stable. Will repeat labs in 3 days at the floor rehabilitation unit. 6. Patient was educated on posterior hip precautions today. Continue posterior hip dislocation precautions for 3 months postoperatively. 7. Currently on doxycycline for 2 weeks postoperatively. Microbiology wound and tissue specimens were reviewed in chart and there is currently no growth or organisms seen today. I discussed with the patient potential side effects of doxycycline including sensitivity to the sunlight and increased risk of skin burn. Recommend patient take appropriate precautions. Also recommend patient to take probiotic while on the antibiotic. Patient voiced understanding agreement. 8. Patient is aware of postoperative constipation that can occur from 1-3 days postoperatively. Will continue with senna 2 tablets twice daily until first bowel movement. Patient was advised if not having a bowel movement after day 3 she is to contact orthopedics so appropriate change can be made. Patient voiced understanding. 9. Continue postoperative medical treatment per medicine: Medicine signed off the patient yesterday. Her sodium has improved to 132 today. She is asymptomatic. 10. Disposition: Orthopedically patient is stable. She has done well with physical therapy. Her pain is controlled when she takes the medications. Her sodium has improved and currently 132. I would recommend repeat labs in 3 days. Patient will continue above pain regimen and DVT prophylaxis plan. We discussed the aspirin 81 mg at her previous history of gastric bleed. We are placing her on medication to help with this. We also discussed that placing her on stronger anticoagulation may put her at risk as well. She did voiced understanding. If she has any symptoms she will contact our office or let medicine know while at the fourth floor rehab. Plan will be for discharge today over to the [facility] fourth floor rehabilitation unit. Prescription will be attached to the chart for the narcotic. Patient will follow-up per our postoperative instructions. Upon discharge she will contact our office with any concerns or questions. We discussed recovery which can take time and therapy is vital for her improvement. I did explain to her it can take up to a year to see full recovery. She is complaining of some right knee pain which I do feel may be compensation with how she has been walking. If we need to work this up in the future we will do so. Voiced understanding and agreement. I have reviewed the [place] Automated Rx Reporting System (OARRS) report for this patient for refill pattern and other prescriber involvement as part of the appropriate surveillance for the provision of acute and chronic controlled medications. The report was requested and reviewed on the date of this entry and was considered in the prescribing process. This dictation was created using voice recognition software. Phonetic and/or grammatical errors may exist. Medications at Discharge Home Medications albuterol sulfate 90 mcg/actuation aerosol inhaler (Ventolin HFA) 1 puff inhalation Q6H PRN Sob &/Or Wheezing 02/26/18 calcium 250 mg (phosphate)-vit D3 12.5 mcg (500 unit) chewable tablet (Citracal-D3 Gummies) 1 tab PO DAILY SUPPLEMENT 02/26/18 docusate sodium 100 mg capsule (Stool Softener) 100 mg PO BID CONSTIPATION 02/26/18 fluticasone propionate 50 mcg/actuation nasal spray,suspension (Flonase Allergy Relief) 1 spray intranasal DAILY PRN Allergies 02/26/18 hydroxyurea 500 mg capsule 500 mg PO MOTUWETHFRSA BONE MARROW 09/14/22 meclizine 25 mg chewable tablet (Antivert) 25 mg PO DAILY PRN PRN dizziness 01/07/23 cetirizine 10 mg tablet (Zyrtec) 10 mg PO DAILY PRN ALLERGIES 07/20/23 cyanocobalamin (vitamin B-12) 1,000 mcg tablet 1,000 mcg PO DAILY SUPPLEMENT 07/20/23 inulin-chromium picolinate 2 gram-100 mcg chewable tablet (Fiber Select Gummies) 3 tab PO DAILY SUPPLEMENT 07/20/23 guaifenesin 600 mg tablet, extended release 12 hr (Mucinex) 600 mg PO BID Cough 04/01/24 bisacodyl 5 mg tablet,delayed release (Dulcolax (bisacodyl)) 5 mg PO BID CONSTIPATION 03/19/25 cholecalciferol (vitamin D3) 25 mcg (1,000 unit) tablet (Vitamin D3) 500 unit PO DAILY SUPPLEMENT 03/19/25 nutritional supplements (Nutra Pro High Protein oral powder) ea PO BID SUPPLEMENT 05/11/25 protein supplement 30 ml PO .QD SUPPLEMENT 05/11/25 zoledronic acid 5 mg/100 mL in mannitol 5 %-water intravenous piggybck (Reclast) 1 ea .Route .Q2YEAR BONE 05/14/25 acetaminophen 500 mg tablet 1,000 mg (2 x 500 mg) PO Q8 14 days #84 tabs 06/10/25 aspirin 81 mg tablet 81 mg PO BIDCM 30 days #60 tabs 06/10/25 doxycycline monohydrate 100 mg capsule 100 mg PO BID 14 days #28 caps 06/10/25 famotidine 20 mg tablet 20 mg PO DAILY 30 days #30 tabs 06/10/25 oxycodone 5 mg tablet 5 - 10 mg (1 - 2 x 5 mg) PO Q4H PRN PRN as needed for pain 7 days #36 tabs 06/10/25 sennosides 8.6 mg-docusate sodium 50 mg tablet (Stimulant Laxative Plus) 2 tab PO BID 2 days #8 tabs 06/10/25 Hospital Course Operations total hip replacement (Revision right total hip arthroplasty) Summary of Care Provided Hospital Course: Patient is a 89-year-old female who had a previous right total hip arthroplasty from outside orthopedic surgeon Dr. Ibarra. Patient had progressive worsening pain. 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 After failing conservative measures, the patient opted to proceed with a revision right total hip arthroplasty. The patient underwent the above-stated procedure on June 08, 2025. Patient did receive perioperative antibiotics. Intraoperatively was uneventful. For details please see dictated operative note. The patient was placed in thigh-high teds, bilateral SCDs, remained stable in recovery. Patient was admitted to the 3rd floor at [facility]. The patient's pain was managed with the use of IV and p.o. pain medications. Patient participated in physical therapy. Patient was discharged on postoperative day # 2 to [facility] fourth floor rehabilitation unit. Patient was given medications stated below. Patient will continue with therapy at the fourth floor rehabilitation unit. Continue posterior hip dislocation precautions for 3 months postoperatively. Patient will continue with our pain regimen and DVT prophylaxis plan. Mepilex dressing will be removed on postoperative day #5. She will continue with VASQUEZ hose for 2 weeks postoperatively. Patient will follow up with [facility] per postop instructions for reassessment with x-rays on arrival and suture removal if needed. Weight / BMI Weight Weight: 55.338 kg Body Mass Index (BMI) 23.8 ABG / Lab / Microbiology Data 06/09/25 06:05 06/10/25 10:19 Laboratory: Laboratory Results - last 24 hr 06/10/25 10:19: Sodium 132 L, Potassium 4.2, Chloride 101, Carbon Dioxide 21.6, Anion Gap 9, BUN 14, Creatinine 0.52 L, Estim Creat Clear Calc 37.21 L, Est GFR (MDRD) Non-Af 89, BUN/Creatinine Ratio 27.7 H, Glucose 130 H, Calcium 8.8 Microbiology: Microbiology 06/08/25 16:15 Tissue - Hip Gram Stain - Final 06/08/25 16:15 Tissue - Hip Gram Stain - Final 06/08/25 16:15 Tissue - Hip Gram Stain - Final 05/21/25 10:35 Swab (Method) Nasal Screen MRSA/MSSA - Final D/C Instructions May shower in (days): 1 (only if incision is dry and without drainage. Do NOT soak/submerge in tub/pool/harrison/stream/hot tub.)) Ice area for (Minutes): 20 (Every 1-2 hours while awake[address] place barrier between ice and skin.) Weight Bearing Status: Weight bearing as tolerated Keep extremity elevated above heart level: Operative Extremity Call your doctor if your incision/area has: Continuous Slow Oozing, Sudden Increased Bleeding, Increased Pain/ Swelling, Increased Redness and Foul Smelling Discharge Call your doctor if you observe: Fever of 101 or Higher, Shortness of breath, Chest pain, Calf discomfort and Uncontrolled pain Cleanse incision/area with: Soap & Water Additional Dressing/Incision Instructions: Follow [facility] Post-op Instructions. Once postoperative dressing has been removed, only use gentle soap and water over the incision. Do not use any ointments, Neosporin, salves, alcohol pads over the incision for 6 weeks postoperatively. Do not submerge underwater for 6 weeks postoperatively. Continue antibiotic doxycycline as prescribed for 2 weeks postoperatively while following cultures. Continue with VASQUEZ hose/elastic stockings for 2 weeks postoperatively. May remove at nighttime but needs to be placed back on the leg during the day. Do NOT use alcohol with narcotic pain medication. Do NOT make important decisions while taking narcotic medication. If you have problems with taking your medication (rash, itching, nausea, etc.) call the office at once. DC O2, CPAP, BIPAP Needs Home O2 Discharge instructions: No Meaningful Use Info Meaningful Use Meaningful Use Diagnoses (Choose all that apply): None applicable Discharge Plan Admission Admit Date/Time: 06/08/25 16:40 Attending Provider: Mic Mallory Primary Care Provider: Nathan Vanegas Consulting Providers: Armond Lott Discharge Orders/Prescriptions Prescriptions: New acetaminophen 500 mg Tablet 1,000 mg PO Q8 14 Days Qty: 84 0RF Rx Instructions: Do not take more than 3000 mg Tylenol in a 24-hour period. aspirin 81 mg tablet 81 mg PO BIDCM 30 Days Qty: 60 0RF Rx Instructions: Take 81 mg aspirin twice daily for 4 weeks postoperatively for DVT prophylaxis. famotidine 20 mg Tablet 20 mg PO DAILY 30 Days Qty: 30 0RF Rx Instructions: Take four 1 month postoperatively while using the aspirin for DVT prophylaxis doxycycline monohydrate 100 mg Capsule 100 mg PO BID 14 Days Qty: 28 0RF Rx Instructions: Take for 2 weeks postoperatively oxycodone 5 mg Tablet 5 - 10 mg PO Q4H PRN PRN (Reason: as needed for pain) 7 Days Qty: 36 0RF sennosides-docusate sodium [Stimulant Laxative Plus] 8.6-50 mg Tablet 2 tab PO BID 2 Days Qty: 8 0RF Rx Instructions: Take until first bowel movement, then as needed Continued calcium phosphate-vitamin D3 [Citracal-D3 Gummies] 250 mg calcium- 500 unit tablet,chewable 1 tab PO DAILY fluticasone propionate [Flonase Allergy Relief] 50 mcg/actuation spray,suspension 1 spray INTRANASAL DAILY PRN (Reason: Allergies) docusate sodium [Stool Softener] 100 mg capsule 100 mg PO BID albuterol sulfate [Ventolin HFA] 90 mcg/actuation HFA aerosol inhaler 1 puff INHALATION Q6H PRN (Reason: Sob &/Or Wheezing) hydroxyurea 500 mg capsule 500 mg PO MOTUWETHFRSA guaifenesin [Mucinex] 600 mg tablet extended release 12hr 600 mg PO BID zoledronic [id number] [Reclast] 5 mg/100 mL piggyback 1 ea .Route .Q2YEAR Rx Instructions: Every other year cyanocobalamin (vitamin B-12) 1,000 mcg tablet 1,000 mcg PO DAILY Fiber Select Gummies 2-100 gram-mcg tablet,chewable 3 tab PO DAILY Patient Comments: 2 tabs in morning, 1 at dinner cetirizine [Zyrtec] 10 mg tablet 10 mg PO DAILY PRN (Reason: ALLERGIES) meclizine [Antivert] 25 mg tablet,chewable 25 mg PO DAILY PRN PRN (Reason: dizziness) bisacodyl [Dulcolax (bisacodyl)] 5 mg tablet,delayed release (DR/EC) 5 mg PO BID cholecalciferol (vitamin D3) [Vitamin D3] 25 mcg (1,000 unit) tablet 500 unit PO DAILY protein supplement Liquid 30 ml PO .QD Nutra Pro High Protein Powder PO BID Rx Instructions: PT TO START FOLLOWING SURGERY FOR 14 DAYS BID Discontinued acetaminophen 500 mg Tablet 1,000 mg PO BID Referrals / Follow Up: Nathan Vanegas DO [Primary Care Provider, Family Practice] Landry Pearson PAErickC [Med Staff - [facility] Practice Prof, Orthopedics] - 06/22/25 2:15 pm Disposition Disposition (needs filled in before D/C Order can be placed): Inpatient Rehab Unit/Facility
--- NOTE | 2025-06-10 13:31 | PHA.DC_ITS ---
Pharmacy [place] Med Reconciliation Pharmacy Service has performed discharge medication reconciliation for this patient. The patient's discharge medication list was reviewed for discrepancies and discrepancies were resolved. Medications at Discharge Home Medications albuterol sulfate 90 mcg/actuation aerosol inhaler (Ventolin HFA) 1 puff inhalation Q6H PRN Sob &/Or Wheezing 02/26/18 calcium 250 mg (phosphate)-vit D3 12.5 mcg (500 unit) chewable tablet (Citracal- D3 Gummies) 1 tab PO DAILY SUPPLEMENT 02/26/18 docusate sodium 100 mg capsule (Stool Softener) 100 mg PO BID CONSTIPATION 02/26/18 fluticasone propionate 50 mcg/actuation nasal spray,suspension (Flonase Allergy Relief) 1 spray intranasal DAILY PRN Allergies 02/26/18 hydroxyurea 500 mg capsule 500 mg PO MOTUWETHFRSA BONE MARROW 09/14/22 meclizine 25 mg chewable tablet (Antivert) 25 mg PO DAILY PRN PRN dizziness 01/07/23 cetirizine 10 mg tablet (Zyrtec) 10 mg PO DAILY PRN ALLERGIES 07/20/23 cyanocobalamin (vitamin B-12) 1,000 mcg tablet 1,000 mcg PO DAILY SUPPLEMENT 07/20/23 inulin-chromium picolinate 2 gram-100 mcg chewable tablet (Fiber Select Gummies) 3 tab PO DAILY SUPPLEMENT 07/20/23 guaifenesin 600 mg tablet, extended release 12 hr (Mucinex) 600 mg PO BID Cough 04/01/24 bisacodyl 5 mg tablet,delayed release (Dulcolax (bisacodyl)) 5 mg PO BID CONSTIPATION 03/19/25 cholecalciferol (vitamin D3) 25 mcg (1,000 unit) tablet (Vitamin D3) 500 unit PO DAILY SUPPLEMENT 03/19/25 nutritional supplements (Nutra Pro High Protein oral powder) ea PO BID SUPPLEMENT 05/11/25 protein supplement 30 ml PO .QD SUPPLEMENT 05/11/25 zoledronic acid 5 mg/100 mL in mannitol 5 %-water intravenous piggybck (Reclast) 1 ea .Route .Q2YEAR BONE 05/14/25 acetaminophen 500 mg tablet 1,000 mg (2 x 500 mg) PO Q8 14 days #84 tabs 06/10/25 aspirin 81 mg tablet 81 mg PO BIDCM 30 days #60 tabs 06/10/25 doxycycline monohydrate 100 mg capsule 100 mg PO BID 14 days #28 caps 06/10/25 famotidine 20 mg tablet 20 mg PO DAILY 30 days #30 tabs 06/10/25 oxycodone 5 mg tablet 5 - 10 mg (1 - 2 x 5 mg) PO Q4H PRN PRN as needed for pain 7 days #36 tabs 06/10/25 sennosides 8.6 mg-docusate sodium 50 mg tablet (Stimulant Laxative Plus) 2 tab PO BID 2 days #8 tabs 06/10/25
--- NOTE | 2025-06-10 13:55 | CASEMGMT ---
Pt is able to accept to [facility] Rehab unit, ESE CM into pt room, pt is aware of the above. Pt denies need for any family member to be contacted. Updated pt nurse that report can be called.
--- NOTE | 2025-06-10 14:21 | NURSING ---
Nurse to nurse report called to Deirdre MULLIGAN on Rehab unit.
== END 2025-06-10 14:34 | DRG 468 ==
PROVIDERS: Physician Assistant Surgical; Student in an Organized Health Care Education/Training Program; Admitting Provider Specialist; PCP Family Medicine; Referring Provider Specialist; Visit Provider Specialist
PROC: 0SP90JZ Removal of Synthetic Substitute from Right Hip Joint, Open Approach (ICD-10-PCS; CPT 27134; principal; 2025-06-08 12:50)
DX: T84.090A Other mechanical complication of internal right hip prosthesis, initial encounter (principal); E78.5 Hyperlipidemia, unspecified; J44.9 Chronic obstructive pulmonary disease, unspecified; I10 Essential (primary) hypertension; M19.90 Unspecified osteoarthritis, unspecified site; F41.9 Anxiety disorder, unspecified; K21.9 Gastro-esophageal reflux disease without esophagitis; M81.0 Age-related osteoporosis without current pathological fracture; Z79.899 Other long term (current) drug therapy; X58.XXXA Exposure to other specified factors, initial encounter; Z96.641 Presence of right artificial hip joint
CPT/HCPCS: 36415; 73502; 80048; 82040; 82962; 83735; 85025; 87015; 87070; 87075; 87081; 87102; 87116; 87176; 87205; 87206; 94668; 97163; 97166; 97535; C1713; C1776; J3475

== ENCOUNTER 2025-06-10 14:40 | Inpatient (IN) | payer MEDICARE, OTHER, SELFPAY ==
[2025-06-10 15:14] VITALS: BP 130/52; PULSE 85; RESP 18; TEMP 36.8; O2SAT 97; BMI 26.3
[2025-06-10 16:30] VITALS: O2SAT 95
[2025-06-10 16:57] VITALS: BP 130/52; PULSE 85; RESP 18; TEMP 36.8; O2SAT 97
[2025-06-10] MEDS: Aspirin E.C. 81 MG Tablet PO (17:02)
--- NOTE | 2025-06-10 20:25 | PCM.HOSP.N ---
Hospitalist Note Pt expresses concerns over no BM since this past Sunday and having episodes of nausea currently. She is also worried that her daily baby aspirin will cause a repeat bleeding gastric ulcer. Informed pt that she is on Pepcid daily, which will help. I ordered Miralax 17gm qhs and ondansetron ODT 4mg q8h PRN.
[2025-06-10 21:35] VITALS: PULSE 85; O2SAT 97
[2025-06-10] MEDS: Senna/Docusate Sodium 1 Tablet 2 TABLET PO (22:18)
[2025-06-10] MEDS: Polyethylene Glycol 3350 17 GM PACKET PO (22:18)
[2025-06-11] MEDS: 0.9% Saline Lock 10 ML Syringe IV (04:44)
[2025-06-11 05:00] VITALS: BP 115/47; PULSE 68; RESP 18; TEMP 36.2; O2SAT 98
[2025-06-11 06:41] LABS: Hematocrit 35.1 % (37-47); Hemoglobin 11.4 g/dL (12.0-15.0); Immature Granulocytes Count 0.030 X10^3/uL (0.0-0.0); Mean Corp Hgb Conc 32.5 g/dL (32-36); Mean Corpuscular Volume 105.1 fL (81-99); Mean Platelet Vol. 9.5 fl (6.2-12.0); NRBC Flagged by Analyzer 0 % (0-5); Platelet Count 323 K/mm3 (150-450); RBC Distribution Width CV 14.6 % (11.6-14.6); RBC Distribution Width SD 55.8 fl (35.1-43.9); Red Blood Count 3.34 M/mm3 (4.2-5.4); White Blood Count 6.7 K/mm3 (4.4-11.0)
[2025-06-11 06:53] VITALS: O2SAT 99
[2025-06-11 07:02] LABS: AST(SGOT) 27 U/L (<=31); Alanine Aminotransfer ALT/SGPT 31 U/L (<=34); Albumin, Serum 3.2 g/dL (3.4-4.8); Alkaline Phosphatase 98 U/L (35-104); Anion Gap 8 (5-15); BUN 15 mg/dL (4-19); BUN/Creat Ratio 26.9 RATIO (10-20); Calcium,Total 8.9 mg/dL (7.6-11.0); Carbon Dioxide 22.9 mmol/L (21.0-32.0); Chloride 100 mmol/L (98-108); Estimated Creatinine Clearance 38.35 ml/min (50-250); Globulin 2.4 g/dL (2.2-4.2); Glucose 105 mg/dL (70-99); Magnesium 2.2 mg/dL (1.5-2.2); Potassium 4.3 mmol/L (3.3-5.1)
--- NOTE | 2025-06-11 07:49 | PCM.HP.STD ---
[facility] - General General Date of Admission: 06/10/25 Date of Service: 06/11/25 HPI Narrative LEW HUDSON, is a 89-year-old F with a past medical history of thrombophilia (on hydroxyurea), GERD, benign pancreatic cyst (this has been drained on 07/25/2024 with endoscopic ultrasound for aspiration of the cyst), osteoporosis, hyperlipidemia, left thyroid nodule, pulmonary nodule, osteoarthritis, chronic constipation (uses Dulcolax twice daily every day), vitamin D deficiency and stage I diastolic dysfunction who was admitted to [facility] on 06/08/2025 for an elective total right hip arthroplasty by Dr. Mic Mallory. Postoperative labs on 06/09/2025 showed a hemoglobin of 11.2 which is down from 13.9 on 05/21/2025. There were no significant postoperative complications. She was transferred to the acute inpatient rehab unit at [facility] on 06/10/2025 for 3 hours of therapy daily to restore function/independence at or near her level prior to the recent right total hip arthroplasty. She lives by herself. She uses a wheeled walker for ambulation. Previously independent with all ADLs. She no longer drives. She has seen Dr. Castelan from neurology in the past for complaints of cold feet with numbness. She has had normal vascular studies in the past couple years and she had EMG and nerve conduction studies performed in May 2024 that did not demonstrate the presence of a neuropathy. He told her that patient is treated with urea can have cold feet, blue feet and limb pain. DEXA in 2023 showed a forearm T-score of -3.7. The vertebral T-score was -1.8. She tells me she gets Reclast every other year. All lab drawn this morning was personally reviewed. Sodium is low at 131 and the potassium is 4.3. The BUN is 15 with a creatinine of 0.54 which is stable. Creatinine clearance is 38.35 and the GFR is 88. Phosphorus is a little low at 2.4 but the magnesium is 2.2. LFTs are within normal limits. TSH was normal in August 2024. B12 and folic acid were normal within the past 2 years. Vitamin D level in March 2025 was only 32.4 and with her history of osteoporosis would prefer that this is higher. She is taking a combination calcium/vitamin D supplement. Serum osmolality is normal at 285 and the urine sodium and urine osmolality are pending. [facility] Medical History (Updated 06/11/25 @ 11:[address] Tawnya Hunter DO) Rhinitis Shortness of breath Right hip pain Wears glasses Arthritis History of GI bleed Non-smoker Pseudocyst of pancreas Depression Fall Pericardial effusion Nonrheumatic tricuspid valve regurgitation Hemorrhoids Idiopathic thrombocythemia Osteoporosis Osteoarthritis Hyperlipidemia Macular degeneration GERD (gastroesophageal reflux disease) Secondary pulmonary arterial hypertension Nodule of left lung Pancreatic cyst Vitamin D deficiency Home Medications ?Medication ?Instructions ?Recorded ?Last Taken ?Type albuterol sulfate 90 mcg/actuation 1 puff inhalation Q6H PRN Sob &/Or 02/26/18 Unknown History aerosol inhaler (Ventolin HFA) Wheezing calcium 250 mg (phosphate)-vit D3 1 tab PO DAILY SUPPLEMENT 02/26/18 06/10/25 History 12.5 mcg (500 unit) chewable tablet (Citracal-D3 Gummies) fluticasone propionate 50 1 spray intranasal DAILY PRN 02/26/18 06/07/25 History mcg/actuation nasal Allergies spray,suspension (Flonase Allergy Relief) hydroxyurea 500 mg capsule 500 mg PO MOTUWETHFRSA BONE MARROW 09/14/22 06/10/25 History meclizine 25 mg chewable tablet 25 mg PO DAILY PRN PRN dizziness 01/07/23 Unknown History (Antivert) cetirizine 10 mg tablet (Zyrtec) 10 mg PO DAILY PRN ALLERGIES 07/20/23 Unknown History cyanocobalamin (vitamin B-12) 1,000 mcg PO DAILY SUPPLEMENT 07/20/23 06/10/25 History 1,000 mcg tablet inulin-chromium picolinate 2 3 tab PO DAILY SUPPLEMENT 07/20/23 06/03/25 History gram-100 mcg chewable tablet (Fiber Select Gummies) Held on 06/10/25. Instructions: Ordered guaifenesin 600 mg tablet, 600 mg PO BID Cough 04/01/24 06/10/25 History extended release 12 hr (Mucinex) cholecalciferol (vitamin D3) 25 500 unit PO DAILY SUPPLEMENT 03/19/25 06/10/25 History mcg (1,000 unit) tablet (Vitamin D3) nutritional supplements (Nutra Pro 1 ea PO BID SUPPLEMENT 05/11/25 Unknown History High Protein oral powder) protein supplement 30 ml PO .QD SUPPLEMENT 05/11/25 Unknown History Held on 06/10/25. Instructions: MD Ordered zoledronic acid 5 mg/100 mL in 1 ea .Route .Q2YEAR BONE 05/14/25 Unknown History mannitol 5 %-water intravenous piggybck (Reclast) Held on 06/10/25. Instructions: MD Ordered acetaminophen 500 mg tablet 1,000 mg PO Q8 pain 06/10/25 06/10/25 History aspirin 81 mg tablet 81 mg PO BIDCM DVT prophylaxis 06/10/25 06/10/25 History doxycycline monohydrate 100 mg 100 mg PO BID ATB 06/10/25 06/10/25 History capsule famotidine 20 mg tablet 20 mg PO DAILY stomach 06/10/25 06/10/25 History oxycodone 5 mg tablet 5 - 10 mg (1 - 2 x 5 mg) PO Q4H 06/10/25 Unknown Rx PRN PRN as needed for pain 7 days #36 tabs Allergy/AdvReac Type Severity Reaction Status Date / Time ciprofloxacin (From Cipro) Allergy Itching Verified 06/08/25 11:59 amoxicillin AdvReac Upset Verified 06/08/25 11:59 Stomach atorvastatin (From Lipitor) AdvReac myalgias Verified 06/08/25 11:59 clarithromycin (From Biaxin) AdvReac Vomiting Verified 06/08/25 11:59 thiopental (From Pentothal) AdvReac Nausea Verified 06/08/25 11:59 Family History Brother CAD (coronary artery disease) Diabetes Father Diabetes Myocardial infarction Mother , 94 due pneumonia No problems noted. Surgical History (Updated 06/11/25 @ 10:[address] 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 pets and animals: No Smoking Status: Never smoker alcohol intake: never caffeine: Yes Type: carbonated beverages do you feel safe at home: Yes ROS Constitutional Constitutional: Denies anorexia, change in weight, chills, fatigue, fever(s), frequent falls, night sweats, poor appetite or weakness Eyes Eyes: Denies blurry vision, change in vision, diplopia, discharge from eye(s), eye pain or loss of vision ENT HEENT: Reports nasal congestion and post nasal drip; Denies abnormal hearing, dysphagia, headache(s), hearing loss, sinus pain, sore throat or tinnitus Cardiovascular Cardiovascular: Reports lightheadedness; Denies chest pain, dyspnea on exertion, edema, orthopnea, palpitations, paroxysmal nocturnal dyspnea, racing heartbeat or syncope Respiratory/Chest Respiratory/Chest: Denies cough, dyspnea, shortness of breath at rest, shortness of breath with exertion or wheezing Gastrointestinal Gastrointestinal: Reports constipation, nausea, vomiting and other Details: She had no nausea and vomiting prior to starting oxycodone recently postoperatively. ; Denies abdominal pain, diarrhea, dyspepsia, hematemesis or hematochezia Genitourinary Genitourinary: Reports urinary incontinence and other Details: Urge urinary incontinence. ; Denies dysuria, hematuria, nocturia, urinary frequency, urinary hesitancy or urinary urgency Musculoskeletal Musculoskeletal: Reports joint pain, numbness and tingling; Denies back pain, joint swelling or neck pain Integumentary Integumentary: Reports dry skin; Denies alopecia, pruritus or rash Neurologic Neurologic: Reports dizziness and other Details: She complains of dizziness but it is actually not vertigo it is lightheadedness occasionally. ; Denies confusion, disequilibrium, focal weakness, frequent falls, headache(s), memory loss, paresthesias, restless legs, seizures or tremor(s) Psychiatric Psychiatric: Denies anxiety, depression, homicidal ideation or suicidal ideation Endocrine Endocrinology: Denies change in body appearance, polydipsia or polyuria Hematologic/Lymphatic Hematologic/Lymphatic: Reports easy bleeding and easy bruising; Denies lymphadenopathy Allergic/Immunologic Allergic/Immunologic: Reports rhinitis and other Details: Rhinitis may be secondary to hydroxyurea. ; Denies eczemia or asthma Vital Signs Vital Signs Vital Signs: 06/10/25 15:14 06/10/25 16:15 06/10/25 16:30 Temperature 98.2 F Temperature Source Oral Pulse Rate 85 Pulse Strength Respiratory Rate 18 Respiratory Effort Normal Non-Labored Respiratory Depth Normal Respiratory Pattern Normal Blood Pressure 130/52 H Blood Pressure Mean 78 Blood Pressure Source Monitor Blood Pressure Position Semi-Fowlers Blood Pressure Location Right Arm Pulse Ox 97 95 Oxygen Delivery Method Room Air Room Air Room Air 06/10/25 16:57 06/10/25 21:35 06/10/25 21:35 Temperature 98.2 F Temperature Source Oral Pulse Rate 85 85 Pulse Strength Normal (2+) Respiratory Rate 18 Respiratory Effort Normal Non-Labored Respiratory Depth Normal Respiratory Pattern Normal Blood Pressure 130/52 H Blood Pressure Mean 78 Blood Pressure Source Monitor Blood Pressure Position Semi-Fowlers Blood Pressure Location Right Arm Pulse Ox 97 97 Oxygen Delivery Method Room Air Room Air 06/11/25 05:00 06/11/25 06:53 Temperature 97.2 F L Temperature Source Temporal Pulse Rate 68 Pulse Strength Respiratory Rate 18 Respiratory Effort Respiratory Depth Respiratory Pattern Blood Pressure 115/47 L Blood Pressure Mean 69 Blood Pressure Source Monitor Blood Pressure Position Sitting Blood Pressure Location Right Arm Pulse Ox 98 99 Oxygen Delivery Method Room Air Room Air Weight Weight: 130 lb 6 oz Body Mass Index (BMI) 26.3 Physical Exam Const alert, oriented x3 and no apparent distress Constitutional Narrative: Sitting in the recliner at the bedside. Pleasant, talkative, engaged in our conversation and making good eye contact. General Appearance: cooperative and comfortable HEENT normocephalic and head/scalp atraumatic HEENT Narrative: Mucous membranes are dry. No evidence of thrush. Eyes PERRL, EOMs intact bilaterally, conjunctivae normal and no scleral icterus Eyes Narrative: No discharge from the eyes Neck supple, no JVD, No nodes and no carotid bruits Chest Chest: symmetrical chest wall rise Resp normal respiratory effort, normal air movement and clear to auscultation bilaterally Resp Narrative: Pulse ox on room air ranges from 95 to 99%. Effort and Inspection: able to speak in complete sentences Cardio regular rate, regular rhythm, S1 normal heart sound, S2 normal heart sound, no rub and no gallops Cardio Narrative: She has a soft grade 1/6 systolic ejection murmur at the second right intercostal space. No ectopy GI GI Narrative: The abdomen is distended and tympanic. It is nontender to palpation. There are hypoactive bowel sounds in all quadrants. No masses were appreciated. no CVA tenderness Narrative: She has had 2 postvoid residuals and both are less than 100. Back/Spine Back/Spine Narrative: She has kyphosis. No pain with palpation over the vertebral bodies and no paraspinal spasms. Extremity no calf tenderness Extremity Narrative: No ankle edema Peripheral Pulses: Yes pulses 2+ throughout Skin no jaundice General Skin Exam: no breakdown Wound Narrative: No rashes Neuro oriented x3, CN's II-XII intact bilaterally, moves all extremities and no focal motor deficits Psych mental status grossly normal, thought process normal, cooperative, affect normal, speech normal, denies hallucinations and denies suicidal ideation Appearance: grossly normal, appropriate and well kempt Attitude: calm and engaged Activity / Motor Behavior: appropriate eye contact Mood & Affect: euthymic mood Results Lab / Micro Data 06/11/25 06:13 06/11/25 06:13 Labs: Laboratory Results - last 24 hr 06/11/25 06:13: WBC 6.7, RBC 3.34 L, Hgb 11.4 L, Hct 35.1 L, MCV 105.1 H, MCH 34.1 H, MCHC 32.5, RDW Std Deviation 55.8 H, RDW Coeff of Cyril 14.6, Plt Count 323, MPV 9.5, Immature Gran % (Auto) 0.500, Neut % (Auto) 66.7, Lymph % (Auto) 14.9 L, [place] % (Auto) 16.8 H, Eos % (Auto) 0.9, Baso % (Auto) 0.2, Absolute Neuts (auto) 4.5, Absolute Lymphs (auto) 0.99, Nucleated RBC % 0, Sodium 131 L, Potassium 4.3, Chloride 100, Carbon Dioxide 22.9, Anion Gap 8, BUN 15, Creatinine 0.54 L, Estim Creat Clear Calc 38.35 L, Est GFR (MDRD) Non-Af 88, BUN/Creatinine Ratio 26.9 H, Glucose 105 H, Calcium 8.9, Phosphorus 2.4 L, Magnesium 2.2, Total Bilirubin 0.41, AST 27, ALT 31, Alkaline Phosphatase 98, Total Protein 5.6 L, Albumin 3.2 L, Globulin 2.4, Albumin/Globulin Ratio 1.3 Assessment & Plan Assessment/Plan (1) Physical debility: (2) Status post revision of total replacement of right hip: (3) Acute blood loss as cause of postoperative anemia: (4) Hyponatremia: (5) Muscle weakness-general: (6) Thrombocytosis: (7) Vitamin D deficiency: PLAN: Vitamin D in March 2025 was only 32. Hydroxyurea can cause hypocalcemia and low vitamin D so would prefer to see the vitamin D level greater than 50. Taking a combination vitamin D/calcium tablet twice a day. Will prescribe Tums 500 mg twice a day and Cholecalciferol 50 mcg daily. Would recheck a vitamin D level in 1 month. (8) Rhinitis: PLAN: This is chronic. Patient describes postnasal drip. She has no sinus pain. She uses Flonase, ceftirizine and Mucinex for this. She says this helps her dizziness but she denies vertigo and complains only of some lightheadedness occasionally. (9) Bilateral cold feet: PLAN: This may be related to hydroxyurea. Per the neurology note from Dr. Castelan states that she had no vascular abnormalities and the EMG/NCV were negative for neuropathy. (10) Multiple thyroid nodules: PLAN: She has had thyroid biopsy x 4 and all are benign. (11) Pancreatic cyst: PLAN: Aspirated in July 2023 but fluid reaccumulated and it is currently being monitored. She does complain of some upper abdominal tightness. (12) Hyperlipidemia: QUALIFIERS: Hyperlipidemia type: unspecified Qualified Code(s): E78.5 - Hyperlipidemia, unspecified PLAN: Plan PLAN PT for gait stability OT for ADL's Analgesics as needed -oxycodone is causing nausea/emesis. Will start tramadol 50 mg every 8 hours and use Tully 5/325 mg every 6 hours as needed for pain 5-10. Bowel protocol Fall precautions Assess for Anxiety/Depression GI prophylaxis -continue famotidine DVT prophylaxis with ASA 81 mg twice daily per orthopedics. She has no history of VTE. Follow up with [] following DC from [facility] Rehab AM lab including CMP, CBC, Mag and Phos Hold Mucinex. Discontinue Claritin. Discontinue Flonase. Hold Mucinex. Start Atrovent nasal spray 2 sprays each nostril twice daily. Continue MiraLAX and senna/docusate. Patient tells me that she takes Dulcolax Gummies twice daily. Will give 1 dose of Dulcolax 10 mg now. Tells me she has a bowel movement every day but her colon may be dependent on laxatives now. Check a urine sodium and a urine and serum osmolality. TSH was normal in August 2024. Charges/Coding Visit Charges Inpatient E&M: 63681 Init Hosp L2
[2025-06-11] MEDS: Aspirin E.C. 81 MG Tablet PO ×2 (08:23→16:19)
[2025-06-11] MEDS: Calcium Carb/Vitamin D 1 TABLET Tablet PO (08:23)
[2025-06-11] MEDS: Senna/Docusate Sodium 1 Tablet 2 TABLET PO ×2 (08:24→21:32)
--- NOTE | 2025-06-11 09:17 | PCM.RU.PYE ---
Admission Information Primary Diagnosis:: Debility secondary to right total hip replacement Status Changes from Prescreening?: No changes Identified Actual Problem List:: Skin Intergrity, Pain, ALteration in Cmfrt, Bladder Incontinence (Urge incontinence), Bowel, Constipation, Mobility Impaired, Self Care Deficit and Alteration-Leisure Activ. Potential Problem List:: DVT, Bleeding, Infection, UTI, Aspiration, Falls, Skin Integrity and Depression Plan of Care Patient requires physician specializing in physical medicine and rehab oversight to provide close medical supervision of rehab issues including: Pain Management, Sleep Problems, Bowel and Bladder, Medical and co-morbidity Management, DVT prophylaxis, Rehabilitation Leadership and Coordination of treatment team Patient needs Physical Therapy: For a minimum of 1 hour and At least 5 out of 7 days Patient needs Physical Therapy to improve:: Mobility, Strengthening, Transfers, Stretching, ROM, Endurance, Stairs, Gait and Balance Patient needs Occupational Therapy: For a minimum of 1 hour and At least 5 out of 7 days Patient needs Occupational Therapy to improve ADL's incl.: Eating, Grooming, Bathing, Dressing, Toileting, Toilet transfers, Community Reintegration, Higher functioning activities, Household tasks, Adaptive Equipment, Splinting and Other activities as determined Patient requires 24/7 Rehabilitation Nursing for: Pain Issues, Identifying and preventing risk factors, Monitoring and reporting current medical conditions, Assisting with ambulation, transfer, and all ADL's, Teaching patients about disease process and medications, Family teaching, Providing safe environment, Bowel and Bladder Issues, Skin integrity and Medication Management Patient needs Bezel Cutter/ Case Management for: Discharge Planning, Arranging Home Equipment or Services and Family Interventions Patient needs Dietary and Nutrition Services for: Adequate Nutrition, Nutritional Supplements and Nutritional Education Goals Goals Patient will remain: free from falls Patient will perform eating at: MOD I level of assist. Patient will perform bed mobility at: MOD I level of assist. Patient will complete transfers from bed to chair at: MOD I level of assist. Patient will ambulate: - (350 feet with a wheeled walker at mod I on various surfaces) Patient will achieve: - (Curb steps with a wheeled walker at min assist) Patient will have pain level of: of 3 or less Patient's skin will: remain intact Patient will receive: adequate nutrition. Discharge Planning Estimated Length of stay (days): 21 Anticipated D/C Destination: Home with Home Health Was Preadmission Assessment Accurate?: Yes
[2025-06-11 10:21] LABS: Osmolality, Serum 285 mOsm/KG (280-301)
[2025-06-11] MEDS: Cholecalciferol (VIT D3) 25 MCG TABLET (1,000 UNITS) 50 MCG PO (10:33)
--- NOTE | 2025-06-11 16:01 | CASEMGMT ---
SW met with pt to complete assessment. SW introduced self and role; pt agreeable to meet. SW verified demographics, insurance, and contacts. Pt alert and oriented x 4, pleasant and cooperative in demeanor. Pt reports that she was independent prior to admit with all ADL and IADL, but has not been driving recently. Pt lives in a one story home that her built. Pt is a , for 66 years before her passed two years ago. Pt reports that she was grief-filled, but not depressed following his passing and has connected with another that she is able to share and heal with, which pt reports has been good for both of them. Pt has 3 kids, 2 of whom live local. Pt has regular contact with local kids, although she reports that she does not ask them for help and does not want to depend on them for things. Pt has daily phone contact with her dtr that lives in [place]. Pt reports that she has 10 grandkids, 25 great grandkids, and 1 great great grandkid. 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 Pt cites an extensive friend and sabianism network in which people routinely call and check-in on her. Pt states no DME needs at this time. Pt goal is to return home independent. Pt has had [facility] in the past an is open to HHC again if needed. Pt cites a new directive was completed with Marielle as primary agent. SW requested a copy for scan into computer. Pt scored 15/15 on BIMS and 0/2 on POHQ9. SW remains available to follow. TODD Onofre
[2025-06-11 18:00] VITALS: BP 132/58; PULSE 87; RESP 17; TEMP 37; O2SAT 100
[2025-06-11 19:06] LABS: Osmolality, Urine 525 mOsm/KG
[2025-06-11 21:00] VITALS: PULSE 87; RESP 17; O2SAT 100
[2025-06-11] MEDS: Polyethylene Glycol 3350 17 GM PACKET PO (21:32)
[2025-06-12 05:24] VITALS: BP 107/43; PULSE 69; RESP 15; TEMP 36.8; O2SAT 96
[2025-06-12 07:16] VITALS: O2SAT 95
[2025-06-12] MEDS: Aspirin E.C. 81 MG Tablet PO ×2 (07:51→17:10)
[2025-06-12] MEDS: Cholecalciferol (VIT D3) 25 MCG TABLET (1,000 UNITS) 50 MCG PO (07:51)
[2025-06-12] MEDS: Senna/Docusate Sodium 1 Tablet 2 TABLET PO ×2 (07:51→20:52)
[2025-06-12 07:55] VITALS: BP 117/53; PULSE 75
[2025-06-12] MEDS: 0.9% Saline Lock 10 ML Syringe IV (09:31)
--- NOTE | 2025-06-12 13:17 | PCM.PROGNOTE ---
Subjective Subjective Afebrile VSS -blood pressure is well-controlled. Heart rate is within normal limits. Maintaining appropriate oxygen saturation on RA-95 to 100%. Oral intake - FOOD erratic FLUIDS poor Postvoid residuals x 2 are less than 100. Discussed with nursing -no bowel movement yet. Complaining of pain in her buttocks but will not turn. She is on senna 2 tabs twice daily and MiraLAX. Reviewed the THERAPY notes Medication list reviewed. Did not have to take any [place] as needed yesterday for pain. She is getting tramadol 50 mg every 8 hours scheduled. Serum osmolality yesterday was normal at 285. Urine sodium was 33 and the urine osmolality was 525. This is consistent with SIADH. She is self restricting her fluids. The atrovent nasal spray has helped to decrease the PND and nasal congestion.......she is no longer c/o nasal congestion. She would like to DC the Mucinex.....has actually been on hold for the past couple days so will DC. 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 She tells me she is irritated and sore due to the coarse toilet paper She tells me her hip pain is adequately managed. She denies calf tenderness, lightheadedness, chest pain, shortness of breath, cough, nausea/vomiting/abdominal pain. Objective Data Objective Data Vital Signs: Vital Signs Temp Pulse Resp BP Pulse Ox O2 Del Method 98.2 F 75 15 117/53 L 95 Room Air 06/12/25 05:24 06/12/25 07:55 06/12/25 05:24 06/12/25 07:55 06/12/25 07:16 06/12/25 07:16 Oxygen Delivery Method Room Air Weight: 130 lb 1.164 oz Body Mass Index (BMI) 26.3 Intake & Output: Intake and Output for Last 24 Hours 06/10/25 06/11/25 06/12/25 23:59 23:59 23:59 Intake Total 620 / 620 940 / 940 560 / 560 Output Total 963 / 963 200 / 200 Balance 620 / 620 -23 / -23 360 / 360 Lab / Micro Data 06/11/25 06:13 06/11/25 06:13 Labs: Laboratory Results - last 24 hr 06/11/25 16:10: Urine Osmolality 525, Ur Random Sodium 33 Physical Exam Const alert, oriented x3 and no apparent distress Constitutional Narrative: Sitting in the recliner at the bedside. Pleasant, talkative, engaged in our conversation and making good eye contact. General Appearance: cooperative and comfortable HEENT HEENT Narrative: Mucous membranes are dry. Eyes Eyes Narrative: No discharge from the eyes Neck nodes Resp normal respiratory effort, normal air movement and clear to auscultation bilaterally Resp Narrative: Pulse ox on room air ranges from 95 to 99%. Effort and Inspection: able to speak in complete sentences Cardio regular rate, regular rhythm, no rub and no gallops Cardio Narrative: She has a soft grade 1/6 systolic ejection murmur at the second right intercostal space that is unchanged from admission to rehab. No ectopy GI GI Narrative: The abdomen is still distended and tympanic. It is nontender to palpation. She still has not had a bowel movement. Bowel sounds are hypoactive. Narrative: She has had 2 postvoid residuals and both are less than 100. 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 Continue therapy 2. KUB today 3. Check a BMP and H&H in the a.m. 4. Continue scheduled tramadol through the weekend and then try and taper. 5. Add MiraLAX to the drug regimen. 6. Dulcolax suppository today 7. DC Mucinex Charges/Coding Visit Charges Inpatient E&M: 26183 Subs Hosp L1
--- NOTE | 2025-06-12 15:54 | RAD_ITS ---
EXAM: XR Abdomen, 2 Views CLINICAL INDICATION: CONSTIPATION TECHNIQUE: Frontal view of the abdomen/pelvis with upright view of the abdomen. COMPARISON: No relevant prior studies available. FINDINGS: INTRAPERITONEAL SPACE: No free air. GASTROINTESTINAL TRACT: Fecal retention in the colon consistent with constipation. No dilation. BONES/JOINTS: Bilateral hip replacement. Intact hardware. Anatomic position. No acute fracture. RAD/Abdomen Single View IMPRESSION: 1. Postoperative changes as above. 2. Fecal retention in the colon consistent with constipation. Reading Location: [id number]
[2025-06-12 16:55] VITALS: BP 116/56; PULSE 75; RESP 18; TEMP 36.4; O2SAT 95
[2025-06-12] MEDS: Magnesium Citrate 300 ML PO (17:11)
[2025-06-12 20:35] VITALS: PULSE 75; RESP 18; O2SAT 95
[2025-06-13 05:58] VITALS: BP 108/46; PULSE 66; RESP 16; TEMP 37.1
[2025-06-13 07:15] LABS: Hematocrit 33.1 % (37-47); Hemoglobin 11.5 g/dL (12.0-15.0)
[2025-06-13 07:54] LABS: Anion Gap 9 (5-15); BUN 11 mg/dL (4-19); BUN/Creat Ratio 22.3 RATIO (10-20); Calcium,Total 8.6 mg/dL (7.6-11.0); Carbon Dioxide 24.4 mmol/L (21.0-32.0); Chloride 96 mmol/L (98-108); Estimated Creatinine Clearance 38.31 ml/min (50-250); Glucose 107 mg/dL (70-99); Potassium 4.4 mmol/L (3.3-5.1)
[2025-06-13] MEDS: Senna/Docusate Sodium 1 Tablet 2 TABLET PO ×2 (09:14→21:48)
[2025-06-13] MEDS: Aspirin E.C. 81 MG Tablet PO ×2 (09:14→16:44)
[2025-06-13] MEDS: Cholecalciferol (VIT D3) 25 MCG TABLET (1,000 UNITS) 50 MCG PO (09:14)
[2025-06-13 18:00] VITALS: BP 127/60; PULSE 70; RESP 16; TEMP 36.2; O2SAT 97
[2025-06-14 06:00] VITALS: BP 108/64; PULSE 68; RESP 18; TEMP 37.1; O2SAT 95
[2025-06-14] MEDS: Aspirin E.C. 81 MG Tablet PO ×2 (08:22→16:24)
[2025-06-14] MEDS: Cholecalciferol (VIT D3) 25 MCG TABLET (1,000 UNITS) 50 MCG PO (08:22)
[2025-06-14] MEDS: Senna/Docusate Sodium 1 Tablet 2 TABLET PO ×2 (08:22→20:25)
[2025-06-14 17:29] VITALS: BP 115/49; PULSE 82; RESP 18; TEMP 36.3; O2SAT 95
[2025-06-15 06:00] VITALS: BP 116/47; PULSE 82; RESP 18; TEMP 36.6; O2SAT 97
--- NOTE | 2025-06-15 07:41 | PCM.PROGNOTE ---
Subjective Subjective Kellie was seen on team rounds today. Family was present in the room for rounds. All questions were answered to their satisfaction. Her daughter told me that she has seen different gastroenterologists for the pancreatic pseudocyst. Apparently there was a conference in a gastroenterology department at some point where 20 physicians agreed that she is not a good candidate for surgery and that the cyst is very thin-walled and she is not a good candidate for stent or repeated aspirations. Afebrile VSS - Maintaining appropriate oxygen saturation on RA Oral intake - FOOD poor FLUIDS has done a little better with oral fluids over the weekend and for the past 3 days she has consumed 1100 to 1300 cc daily. She had 1 bowel movement on Sunday, 3 bowel movements on Sunday and 1 bowel movement yesterday. Discussed with nursing - no problems that need addressed Reviewed the THERAPY notes Medication list reviewed. Over the weekend she was started on salt tablets 2 times daily for hyponatremia. She was also started on Reglan 5 mg p.o. AC and at bedtime for nausea and early satiety, likely due to a large pancreatic cyst compressing the stomach. She tells me that the nausea is somewhat better. The KUB today shows some decrease in the amount of stool burden. There is still gas and fecal material seen throughout the colon. Daughter reinforces that the patient was told not to use Dulcolax regularly but to take stool softeners yet she continues to do laxatives twice daily. Denies heartburn today and also denies chest pain, shortness of breath, cough, lightheadedness, abdominal pain, dysuria, calf pain. She does have pain in the right anterior thigh that is sometimes grabbing and sometimes burning. It happens mostly when she is trying to walk. It is not bad when she is just standing. Objective Data Objective Data Vital Signs: Vital Signs Temp Pulse Resp BP Pulse Ox O2 Del Method 97.9 F 82 18 116/47 L 97 Room Air 06/15/25 06:00 06/15/25 06:00 06/15/25 06:00 06/15/25 06:00 06/15/25 06:00 06/15/25 06:00 Oxygen Delivery Method Room Air Weight: 130 lb 1.164 oz Body Mass Index (BMI) 26.3 Intake & Output: Intake and Output for Last 24 Hours 06/13/25 06/14/25 06/15/25 23:59 23:59 23:59 Intake Total 1280 / 1280 1140 / 1140 50 / 50 Output Total 1150 / 1150 950 / 950 200 / 200 Balance 130 / 130 190 / 190 -150 / -150 Lab / Micro Data 06/13/25 06:53 06/13/25 06:53 Physical Exam Const alert, oriented x3 and no apparent distress Constitutional Narrative: Sitting in the recliner at the bedside. Pleasant, talkative, engaged in our conversation and making good eye contact. She slept in the recliner most of last night and was more comfortable than in the bed. General Appearance: cooperative and comfortable HEENT HEENT Narrative: Mucous membranes are dry. Eyes Eyes Narrative: No discharge from the eyes Resp normal respiratory effort, normal air movement and clear to auscultation bilaterally Resp Narrative: Maintaining appropriate oxygen saturation on room air. Effort and Inspection: able to speak in complete sentences; Negative for tachypneic Cardio regular rate, regular rhythm, no rub and no gallops Cardio Narrative: She has a soft grade 1/6 systolic ejection murmur at the second right intercostal space that is unchanged from admission to rehab. No ectopy GI GI Narrative: The abdomen is less distended distended but she still has tympany.. It is nontender to palpation. Bowel sounds are hypoactive. The last bowel movement was yesterday at 6 AM. Extremity no calf tenderness Extremity Narrative: No ankle edema. Skin General Skin Exam: no breakdown Rashes: no rashes Wound Narrative: The incision is intact with no anni-incisional erythema and no purulent discharge. 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 Continue therapy 2. KUB today to assess the stool burden. She has moderate stool retention now which is improved from what it was last week. There is gas throughout the colon. 3. Continue Reglan. Increase polyethylene glycol to twice daily. Continue senna/docusate 2 tablets twice daily 4. Apply compounded arthritis cream to the right anterior thigh twice daily. 5. Decrease the tramadol to every 12 hours. Continue Vicodin as needed. Consider changing her to tramadol 50 mg every 8 hours as needed for pain and schedule acetaminophen 1000 mg every 8 hours. Would discontinue the Vicodin if I do this. Monitor closely over the next 48 hours to see how she does with the decrease in the tramadol to every [address] Larios for chronic constipation. I suspect at this point she is laxative dependent and we may need to continue laxatives every 2 to 3 days if no bowel movement. 7. Encouraged her to eat small amounts every few hours rather than 3 large meals. She has early satiety and at times will only eat 25 to 49% of her meals. 8. She does not feel that she will be able to discharge home independently. She would like to go to long-term following inpatient rehab. She feels that 3 hours of therapy daily is too much for her. The psychotherapist social worker gave the family a list of various long-term facilities that her insurance will cover. We also discussed an assisted living going forward versus paying someone to come into her home and help her. 9. Recheck of BMP in the AM. Charges/Coding Visit Charges Inpatient E&M: 93483 Subs Hosp L2
[2025-06-15] MEDS: Aspirin E.C. 81 MG Tablet PO ×2 (07:56→16:58)
[2025-06-15] MEDS: Cholecalciferol (VIT D3) 25 MCG TABLET (1,000 UNITS) 50 MCG PO (07:56)
[2025-06-15] MEDS: Senna/Docusate Sodium 1 Tablet 2 TABLET PO ×2 (07:56→22:59)
[2025-06-15] MEDS: Arthritis Pain Compound 60 CLICK TUBE TOPICAL ×3 (12:24→22:57)
--- NOTE | 2025-06-15 12:54 | CASEMGMT ---
Social Work IDT met with patient, dtr and SONIA for Team meeting. Discussed patient's progress in PT/OT/SN. Educated to Medicare approval of 11 days with DC 06/21. SW inquired about DC plan. Pt voiced she cannot return home at time of DC. Dtr stated she has looked into [facility] and [facility]. SW educated to SNF and AL with therapy and insurance coverage. SW discussed therapy reporting pt demonstrating 3 hrs/day of therapy is too much. SW educated if pt wants to DC sooner to skilled care for less per day of therapy but still skilled therapy. Pt interested in that option first. IDT also recommending AL for long-term and suggested DCing to a facility that can accommodate both levels of care. Pt voiced she does not be in [facility] or SNF (even though she is in [facility] [place]). Pt stated she has a LTC policy but doesn't start covering until 90 days. Pt inquired about hiring private duty aides. SW confirmed. SW provided resources for AL, LOOP TENDER, SNF Medicare coverage, and list of SNFs in preferred geographical area, INN with pt?s insurance, including quality and resource data via [employer]. Family to review and notify this worker of choices to place referrals. SW will continue to follow. - Pt/dtr requesting referral to [facility]. MING completed via [employer]. SW broached pt may be able to DC sooner. Plan: DC to SNF 06/21 Nelida GUTIERREZW
--- NOTE | 2025-06-15 14:10 | RAD_ITS ---
PROCEDURE: ABDOMEN SINGLE VIEW 06/15/2025 REASON FOR EXAM: CONSTAPATION TECHNIQUE: Procedure Code: RADABD Modality: DX Procedure: ABDOMEN SINGLE VIEW COMPARISON: June 12, 2025. FINDINGS: Bowel gas: Gas is seen within the colon. Moderate amount of fecal material. There has been improvement as compared to prior study. Calcifications: No suspicious calcifications. Bones: Status post bilateral hip replacement. Other: RAD/Abdomen Single View IMPRESSION: Gas and fecal material is seen throughout the colon. No evidence of obstructio n. This has improved as compared to prior study. Reading Location: [id number]
[2025-06-15 17:35] VITALS: BP 112/55; PULSE 82; RESP 16; TEMP 37.1; O2SAT 99
--- NOTE | 2025-06-15 18:12 | CON.PCM.GI_ITS ---
HPI Consult Data Date of Consult: 06/15/25 HPI Narrative HPI Narrative: LEW HUDSON, is a 89-year-old female with a history of thrombophilia (on hydroxyurea), GERD, benign recurrent pancreatic cyst, osteoporosis, hyperlipidemia, thyroid/pulmonary nodules, osteoarthritis, chronic constipation, vitamin D deficiency, and stage I diastolic dysfunction. She was admitted to [facility] on 06/08/2025 for an elective total right hip arthroplasty by Dr. Mic Mallory and transferred to the acute inpatient rehab unit on 06/10/2025. Patient reported worsening constipation. Per family report, patient was instructed not to take Dulcolax and only use a stool softener (Colace) for chronic constipation. She experiences nausea and early satiety for which she was started on Reglan 5 mg in the morning. * Imaging:?KUB performed this morning shows a decreased amount of stool in the colon, but residual gas and fecal material remain. ] [facility] Medical History Rhinitis Shortness of breath Right hip pain Wears glasses Arthritis History of GI bleed Non-smoker Pseudocyst of pancreas Depression Fall Pericardial effusion Nonrheumatic tricuspid valve regurgitation Hemorrhoids Idiopathic thrombocythemia Osteoporosis Osteoarthritis Hyperlipidemia Macular degeneration GERD (gastroesophageal reflux disease) Secondary pulmonary arterial hypertension Nodule of left lung Pancreatic cyst Vitamin D deficiency Home Medications ?Medication ?Instructions ?Recorded ?Last Taken ?Type albuterol sulfate 90 mcg/actuation 1 puff inhalation Q 6H PRN Sob &/Or 02/26/18 Unknown History aerosol inhaler (Ventolin HFA) Wheezing calcium 250 mg (phosphate)-vit D3 1 tab PO DAILY SUPPL EMENT 02/26/18 06/10/25 History 12.5 mcg (500 unit) chewable tablet (Citracal-D3 Gummies) fluticasone propionate 50 1 spray intranasal DAILY PRN 02/26/18 06/07/25 History mcg/actuation nasal Allergies spray,suspension (Flonase Allergy Relief) hydroxyurea 500 mg capsule 500 mg PO MOTUWETHFRSA BONE MARROW 09/14/22 06/10/25 History meclizine 25 mg chewable tablet 25 mg PO DAILY PRN PRN dizziness 01/07/23 Unknown History (Antivert) cetirizine 10 mg tablet (Zyrtec) 10 mg PO DAILY PRN AL LERGIES 07/20/23 Unknown History cyanocobalamin (vitamin B-12) 1,000 mcg PO DAILY SUPPL EMENT 07/20/23 06/10/25 History 1,000 mcg tablet inulin-chromium picolinate 2 3 tab PO DAILY SUPPLEMENT 07/20/23 06/03/25 History gram-100 mcg chewable tablet (Fiber Select Gummies) Held on 06/10/25. Instructions: MD Ordered guaifenesin 600 mg tablet, 600 mg PO BID Cough 4 06/10/25 History extended release 12 hr (Mucinex) cholecalciferol (vitamin D3) 25 500 unit PO DAILY SUPP LEMENT 03/19/25 06/10/25 History mcg (1,000 unit) tablet (Vitamin D3) nutritional supplements (Nutra Pro 1 ea PO BID SUPPLEM ENT 05/11/25 Unknown History High Protein oral powder) protein supplement 30 ml PO .QD SUPPLEMENT 05/02 Unknown History Held on 06/10/25. Instructions: MD Ordered zoledronic acid 5 mg/100 mL in 1 ea .Route .Q2YEAR BON E 05/14/25 Unknown History mannitol 5 %-water intravenous piggybck (Reclast) Held on 06/10/25. Instructions: MD Ordered acetaminophen 500 mg tablet 1,000 mg PO Q8 pain 06/10/25 History aspirin 81 mg tablet 81 mg PO BIDCM DVT prophylax is 06/10/25 06/10/25 History doxycycline monohydrate 100 mg 100 mg PO BID ATB 06/1006/10/25 History capsule famotidine 20 mg tablet 20 mg PO DAILY stomach 06/1006/10/25 History oxycodone 5 mg tablet 5 - 10 mg (1 - 2 x 5 mg) PO Q4H 06/10/25 Unknown Rx PRN PRN as needed for pain 7 days #36 tabs Allergy/AdvReac Type Severity Reaction Status Date / Time ciprofloxacin (From Cipro) Allergy Itching Verified 06/08/25 11:59 amoxicillin AdvReac Upset Verified 06/08/25 11:59 Stomach atorvastatin (From Lipitor) AdvReac myalgias Verified 06/08/25 11:59 clarithromycin (From Biaxin) AdvReac Vomiting Verified 06/08/25 11:59 thiopental (From Pentothal) AdvReac Nausea Verified 06/08/25 11:59 Family History Brother CAD (coronary artery disease) Diabetes Father Diabetes Myocardial infarction Mother , 94 due pneumonia No problems noted. 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 pets and animals: No Smoking Status: Never smoker alcohol intake: never caffeine: Yes Type: carbonated beverages do you feel safe at home: Yes ROS Constitutional Constitutional: Denies fatigue, fever(s), poor appetite, weight gain or weight loss Gastrointestinal Gastrointestinal: Denies belching, bloating, change in bowel habits, change in stool character, chewing difficulty, coffee ground emesis, constipation, cramping, diarrhea, dyspepsia, dysphagia, early satiety, excessive flatus, fecal incontinence, heartburn, hematemesis, hematochezia, hemorrhoids, loose stools, melena, nausea, odynophagia, rectal bleeding, tenesmus, vomiting or weight changes Physical Exam Const alert, oriented x3, no apparent distress and healthy appearing General Appearance: cooperative GI normal to inspection, nondistended, normoactive bowel sounds, soft to palpation, non-tender and non-distended Percussion: normal to percussion Rectal Exam: deferred Lab / Micro Data 06/13/25 06:53 06/13/25 06:53 Imaging Radiology Impression KUB X-Ray 06/15/25 14:10 IMPRESSION: Gas and fecal material is seen throughout the colon. No evidence of obstruction. This has improved as compared to prior study. Reading Location: [id number] Assessment & Plan Assessment/Plan (1) Hyponatremia: (2) Constipation: PLAN: A * Postoperative State (Right Total Hip Arthroplasty):?Patient is post-op day 3 from elective surgery, transferred to acute rehab for therapy. Hemoglobin decreased post-op, which is monitored but stable at 11.2. No significant post- op complications noted. * Hyponatremia:?Mild hyponatremia (Na 131). Serum osmolality is normal. Patient started on salt tablets. Requires monitoring of fluid status, intake/output, and sodium levels. * Constipation:?Chronic issue, currently worsening. KUB confirms some fecal material and gas remain. Current regimen of Colace is insufficient. The instruction to avoid Dulcolax needs clarification or revision if clinically indicated and safe for her post-operative status. * Nausea/Early Satiety:?Addressed with Reglan 5 mg daily. * Hypophosphatemia:?Mildly low phosphorus (2.4). Magnesium is normal. P * Constipation:?Re-evaluate bowel regimen. Given the KUB findings and ongoing symptoms, Colace alone is insufficient. She really needs a general stimulant like Dulcolax or bisacodyl + an osmotic laxative (e.g., MiraLAX) plus mineral oil ; if the family's contraindication is not an absolute one in the acute rehab setting. - MiraLAX 17 g in the a.m. and p.m. - Metamucil 1 tablespoon at night - 1 soapsuds enema - Dulcolax 1 tab in the a.m. and 1 tab in the p.m. - Metoclopramide 5 mg p.o. 3 times daily * Encourage increased fluid intake and mobility as permitted by physical therapy. * Hyponatremia:?Continue salt tablets. Monitor daily weights, I/Os, and repeat basic metabolic panel (BMP) tomorrow morning to assess sodium level response. * Vitamin D/Osteoporosis:?Continue current combination supplement. Consider a higher dose of Vitamin D supplementation after consulting with the attending physician to optimize bone health. * Nausea:?Continue to monitor.. Portions of this note were generated using voice recognition software ([employer]ulama[employer]). I have reviewed the contents and every effort has been made to ensure accuracy; however, inadvertent errors in grammar, spelling, punctuation, or word choice may occur, that were not noted before signing the document and should not alter the intended clinical meaning. Charges/Coding Visit Charges Inpatient E&M: 23785 Init Hosp L3
[2025-06-15 22:40] VITALS: BP 128/49; PULSE 99; RESP 16; TEMP 37.3
[2025-06-15] MEDS: Polyethylene Glycol 3350 17 GM PACKET PO (22:58)
[2025-06-16 06:00] VITALS: BP 120/49; PULSE 83; RESP 16; TEMP 37.1; O2SAT 96; BMI 27.1
[2025-06-16 06:09] LABS: Anion Gap 8 (5-15); BUN 9 mg/dL (4-19); BUN/Creat Ratio 23.9 RATIO (10-20); Calcium,Total 8.5 mg/dL (7.6-11.0); Carbon Dioxide 23.1 mmol/L (21.0-32.0); Chloride 101 mmol/L (98-108); Estimated Creatinine Clearance 38.31 ml/min (50-250); Glucose 106 mg/dL (70-99); Potassium 4.4 mmol/L (3.3-5.1)
[2025-06-16] MEDS: Arthritis Pain Compound 60 CLICK TUBE TOPICAL (06:45)
[2025-06-16] MEDS: Polyethylene Glycol 3350 17 GM PACKET PO ×2 (07:53→21:22)
[2025-06-16] MEDS: Senna/Docusate Sodium 1 Tablet 2 TABLET PO (07:53)
[2025-06-16] MEDS: Aspirin E.C. 81 MG Tablet PO ×2 (07:54→16:31)
[2025-06-16] MEDS: Cholecalciferol (VIT D3) 25 MCG TABLET (1,000 UNITS) 50 MCG PO (07:54)
--- NOTE | 2025-06-16 09:31 | PN_ITS ---
Subjective Subjective Afebrile Blood pressure is well-controlled and heart rate is within normal limits. Maintaining appropriate oxygen saturation on room air. Food intake is variable....... will wait today. Fluid intake yesterday was only 530 and overnight she took an 420. Averaging 1 bowel movement daily....... got Dulcolax 10 mg p.o. yesterday. The stool was non-formed and soft and the bowel movement was categorized as medium. KUB showed moderate stool retention. That was improved from the first KUB. Sodium is up to 132 with the addition of 1 g of sodium chloride twice daily to her drug regimen. Potassium is stable at 4.4. Serum bicarb is normal. BUN is 9 and creatinine is 0.4 which is down from 0.51 on 06/13/2025. I suspect she has had more fluid than is being recorded. Calcium is 8.5. I reviewed Dr. Larios's consult and appreciate his input. Orders have been changed to the recommended bowel regimen. Will give a soapsuds enema today. Kellie has not c/o post nasal drainage, rhinitis or vertigo or pruritus since the antihistamine and Mucinex were discontinued and she was startetd on Atovent nasal spray. She has not used any meclizine or the albuterol inhaler since she arrived on rehab. She has not needed Zofran since 06/10/2025 and she has only had 1 dose since she was on rehab. She tells me that she does not have pain in her hip today and the tramadol was decreased to 50 mg every 12 hours yesterday. She has not taken the Vicodin since the order was entered on 06/11/2025. She denies lightheadedness, chest pain, nausea/vomiting, abdominal pain, calf pain and dysuria. Objective Data Objective Data Vital Signs: Vital Signs Temp Pulse Resp BP Pulse Ox O2 Del Method 98.8 F 83 16 120/49 L 96 Room Air 06/16/25 06:00 06/16/25 06:00 06/16/25 06:00 06/16/25 06:00 06/16/25 06:00 06/16/25 06:00 Oxygen Delivery Method Room Air Weight: 130 lb 1.164 oz Body Mass Index (BMI) 26.3 Intake & Output: Intake and Output for Last 24 Hours 06/14/25 06/15/25 06/16/25 23:59 23:59 23:59 Intake Total 1140 / 1140 530 / 530 420 / 420 Output Total 950 / 950 400 / 400 400 / 400 Balance 190 / 190 130 / 130 20 / 20 Lab / Micro Data 06/13/25 06:53 06/16/25 05:32 Labs: Laboratory Results - last 24 hr 06/16/25 05:32: Sodium 132 L, Potassium 4.4, Chloride 101, Carbon Dioxide 23.1, Anion Gap 8, BUN 9, Creatinine 0.40 L, Estim Creat Clear Calc 38.31 L, Est GFR (MDRD) Non-Af 95, BUN/Creatinine Ratio 23.9 H, Glucose 106 H, Calcium 8.5 Radiography Diagnostic Testing: Radiology Impression KUB X-Ray 06/15/25 14:10 IMPRESSION: Gas and fecal material is seen throughout the colon. No evidence of obstruction. This has improved as compared to prior study. Reading Location: [facility] Physical Exam Const alert and no apparent distress General Appearance: cooperative HEENT HEENT Narrative: Mucous membranes are dry. Eyes Eyes Narrative: No discharge from the eyes Resp normal respiratory effort, normal air movement and clear to auscultation bilaterally Resp Narrative: Maintaining appropriate oxygen saturation on room air. Cardio regular rate, regular rhythm, no rub and no gallops GI GI Narrative: The abdomen is less distended distended but she still has tympany.. It is nontender to palpation. Bowel sounds are hypoactive. The last bowel movement was yesterday at 6 AM. Extremity no calf tenderness Extremity Narrative: No ankle edema. Skin General Skin Exam: no breakdown Rashes: no rashes Wound Narrative: The incision is intact with no anni-incisional erythema and no purulent discharge. There is some serous drainage. No odor to the drainage. Psych Psych Narrative: Did better with theraapy today.........did not refuse and c/o fatigue. 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 Continue therapy 2. Will discharge to senior care upon discharge from rehab 3. The bowel regimen was changed to what was recommended by Dr. Larios. Twice daily laxatives have been reinstituted. 4. Hold the simethicone today to see if anything changes. 5. Continue as needed Vicodin, meclizine and albuterol. If she has not used any of these at the time of discharge will discontinue. 6. We discussed assisted living today versus independent living and hiring help to come in. She would like to hire help to come in. We discussed the importance of absolute compliance with the medications as prescribed and she is agreeable. 7. Sodium is 132 today so we will continue salt tablets. 8. Continue aspirin 81 mg twice daily per orthopedics Charges/Coding Visit Charges Inpatient E&M: 68232 Subs Hosp L1
--- NOTE | 2025-06-16 10:59 | CASEMGMT ---
Social Work [facility] can accept but does not have a bed until 06/21.? - SW received VMs from both dtrs requesting to speak with this worker and inquiring about TCU for placement. Dtr, Katherin from [place], requested information to assist with LTC policy. - SW phoned Katherin and acknowledged sister called this worker as well, but Katherin to update sister with information. SW appreciative. SW spoke with dtr at length, assisted in answering questions to prepare for pt's DC. SW explained pt is currently finding 3hrs/day of therapy challenging, thus unsure if therapy is going to prove to be a benefit or not for her. SNF does require less daily amount of therapy, which may be better for the pt; or none at all given pt's age and comorbidities. SW stressed the future is unknown, but if pt is unable to return home and AL is a consideration, it may be most beneficial for the pt to establish at a facility/campus that can accommodate pt's needs to eliminate unnecessary transitions. dtr inquired about TCU. SW reiterated pt is a short-term skilled facility and if pt needs longer time to recover prior to home or cannot return home, pt would have to DC from TCU and transition to another facility. If pt would initially admit to a SNF, like [facility], pt could remain there for all levels of care. SW offered to make a referral for TCU, as SW does not make the decision, and offered to wait until a few more days of therapy to see if pt is making improvements. Dtr appreciative of honest insight, and will discuss options with sister then notify this worker. Dtr stated family might want to buy more time to figure out what the plan will be for pt long-term by having her go to TCU. Dtr inquired about Medicare coverage and ALOS. SW educated to Medicare benefit period and ALOS between 20-30 days if pt continues to meet criteria. Dtr expressed understanding. Dtr also asked for assistance with paperwork for LTC policy. SW provided fax and email to retrieve paperwork to have complete. Dtr appreciative. SW will continue to follow. Nelida Garcia TERMITE HELPER CLOCK REPAIRER
[2025-06-16 11:08] VITALS: BP 120/49; PULSE 83
[2025-06-16 17:08] VITALS: BP 112/48; PULSE 86; RESP 16; TEMP 36.8; O2SAT 98
[2025-06-16] MEDS: Psyllium 1 PACKET PO (21:23)
[2025-06-17 05:50] VITALS: BP 101/50; PULSE 82; RESP 16; TEMP 36.8; O2SAT 97
--- NOTE | 2025-06-17 05:51 | NURSING ---
Patient continues to deny the need for the SSE that was ordered due to having a BM last evening. BS x 4, mild rounded hard abdomen that patient says is per her normal. Will monitor.
[2025-06-17] MEDS: Polyethylene Glycol 3350 17 GM PACKET PO ×2 (08:11→20:36)
[2025-06-17] MEDS: Cholecalciferol (VIT D3) 25 MCG TABLET (1,000 UNITS) 50 MCG PO (08:12)
[2025-06-17] MEDS: Aspirin E.C. 81 MG Tablet PO ×2 (08:12→17:01)
--- NOTE | 2025-06-17 09:34 | PCM.PROGNOTE ---
Subjective Subjective Afebrile Blood pressure is well-controlled with latest being 101/50 and heart rate is within normal limits at 87. Maintaining appropriate oxygen saturation on room air. Food intake is about 50%. Recommend smaller frequent meals is recommended. Fluid intake has been an issue since admission, although slightly better in the last 24 hours in which it was 930. Continue to encourage fluid intake. She did have BM's yesterday and today. She denies lightheadedness, chest pain, nausea/vomiting, abdominal pain, calf pain and dysuria. Her only complaint today is that she had some swelling in the R knee required ice last night. She states that the pain has improved in her R leg and that the arthritis cream and Tramadol are working for her. She does have what looks like a contact dermatitis to the R lower extremity. I did apply the lotion to the area and she stated that it feels better. 12 point review of systems is negative except as indicated above. This note was generated with [employer] dictation software. It may contain incorrect words, spelling, and punctuation that were not noted in checking the note before signing. Objective Data Objective Data Vital Signs: Vital Signs Temp Pulse Resp BP Pulse Ox O2 Del Method 98.3 F 82 16 101/50 L 97 Room Air 06/17/25 05:50 06/17/25 05:50 06/17/25 05:50 06/17/25 05:50 06/17/25 05:50 06/17/25 05:50 Oxygen Delivery Method Room Air Weight: 134 lb 4.82 oz Body Mass Index (BMI) 27.1 Intake & Output: Intake and Output for Last 24 Hours 06/15/25 06/16/25 06/17/25 23:59 23:59 23:59 Intake Total 530 / 530 1350 / 1350 340 / 340 Output Total 400 / 400 950 / 950 200 / 200 Balance 130 / 130 400 / 400 140 / 140 Lab / Micro Data Attestation: I reviewed the patient's lab results. Lab results narrative: from 06/17/25 06/13/25 06:53 06/16/25 05:32 Labs: Laboratory Results - last 24 hr 06/16/25 05:32: Sodium 132 L, Potassium 4.4, Chloride 101, Carbon Dioxide 23.1, Anion Gap 8, BUN 9, Creatinine 0.40 L, Estim Creat Clear Calc 38.31 L, Est GFR (MDRD) Non-Af 95, BUN/Creatinine Ratio 23.9 H, Glucose 106 H, Calcium 8.5 Radiography Diagnostic Testing: Radiology Impression KUB X-Ray 06/15/25 14:10 IMPRESSION: Gas and fecal material is seen throughout the colon. No evidence of obstruction. This has improved as compared to prior study. Reading Location: [facility] Physical Exam Const alert, oriented x3 and no apparent distress General Appearance: cooperative HEENT normocephalic HEENT Narrative: Mucous membranes are dry. Eyes Eyes Narrative: macular degeneration Resp normal respiratory effort, normal air movement and clear to auscultation bilaterally Resp Narrative: Maintaining appropriate oxygen saturation on room air. Cardio regular rate, regular rhythm, no rub and no gallops GI GI Narrative: Large BM this AM Extremity no calf tenderness Extremity Narrative: Edema noted to the RLE and knee. Dermatitis to the RLE and lotion applied. Skin General Skin Exam: no breakdown Rashes: no rashes Wound Narrative: The incision is intact with no anni-incisional erythema and no purulent discharge. There is some serous drainage. No odor to the drainage. Psych thought process normal Psych Narrative: Did better with theraapy today.........did not refuse and c/o fatigue. 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 Continue therapy 2. Will discharge to assisted upon discharge from rehab 3. The bowel regimen was changed to what was recommended by Dr. Larios. Twice daily laxatives have been reinstituted. 4. Continue aspirin 81 mg twice daily per orthopedics 5. utilize lotion to the RLE for dermatitis Charges/Coding Visit Charges Inpatient E&M: 02929 Subs Hosp L1
[2025-06-17 17:11] VITALS: BP 114/55; PULSE 81; RESP 17; TEMP 36.4; O2SAT 98
[2025-06-17] MEDS: Psyllium 1 PACKET PO (20:37)
[2025-06-18 05:45] VITALS: BP 103/80; PULSE 73; RESP 16; TEMP 36.6; O2SAT 95
[2025-06-18] MEDS: Arthritis Pain Compound 60 CLICK TUBE TOPICAL ×2 (05:46→22:47)
[2025-06-18] MEDS: Aspirin E.C. 81 MG Tablet PO ×2 (07:38→16:19)
[2025-06-18] MEDS: Polyethylene Glycol 3350 17 GM PACKET PO ×2 (09:26→22:50)
[2025-06-18] MEDS: Cholecalciferol (VIT D3) 25 MCG TABLET (1,000 UNITS) 50 MCG PO (09:27)
[2025-06-18 09:53] VITALS: BMI 27.0
--- NOTE | 2025-06-18 14:21 | CASEMGMT ---
Social Work SW phoned dtr, Marielle, to follow up on DC plan. Dtr requested referral to TCU to see if pt is accepted, and then pt/family will decide which is first choice. SW agreed. - TCU referral sent. Nelida Garcia MSW COMMUNICATIONS ASSISTANT
[2025-06-18 18:00] VITALS: BP 118/53; PULSE 76; RESP 16; TEMP 37.1; O2SAT 95
[2025-06-18 22:30] VITALS: BP 114/56; PULSE 74; RESP 16; TEMP 37.1; O2SAT 97
[2025-06-18] MEDS: Psyllium 1 PACKET PO (22:50)
[2025-06-19] MEDS: Arthritis Pain Compound 60 CLICK TUBE TOPICAL ×2 (04:32→22:17)
[2025-06-19 05:19] VITALS: BP 120/63; PULSE 76; RESP 16; TEMP 37.3; O2SAT 95
[2025-06-19 05:20] VITALS: BMI 27.0
[2025-06-19 05:24] VITALS: BMI 27.1
[2025-06-19] MEDS: Polyethylene Glycol 3350 17 GM PACKET PO ×2 (08:01→22:16)
[2025-06-19] MEDS: Aspirin E.C. 81 MG Tablet PO ×2 (08:02→17:16)
[2025-06-19] MEDS: Cholecalciferol (VIT D3) 25 MCG TABLET (1,000 UNITS) 50 MCG PO (08:02)
--- NOTE | 2025-06-19 08:45 | CASEMGMT ---
Addendum entered by Nelida Garcia 06/19/25 16:20: 7000 completed. TX summary sent to [facility]. Original Note: Social Work SW received update that TCU is denying as pt is more appropriate for [facility]. SW phoned dtr, Marielle, to update. Marielle agreeable to [facility], but wants this worker to speak with pt to ensure that is the pt's wish. SW agreed. Dtr inquired about transport. SW educated that pt is a [facility] and family can transport, if they feel comfortable. Staff can assist at both locations. Offered to schedule transport but it will be an OOP cost or SW can inquire to [facility] for their w/c van. Marielle to speak with her and will notify this worker of decision. SW to speak with pt and finalize DC for 06/21 Nelida Garcia SLOOP CAPTAIN INDUSTRIAL RELATIONS REPRESENTATIVE
--- NOTE | 2025-06-19 11:10 | PN_ITS ---
Subjective Subjective Afebrile VSS - Maintaining appropriate oxygen saturation on RA Oral intake - FOOD has been eating 50 to 100% of her meals since lunch on 06/16/2025. The Reglan has helped with the early satiety, nausea and reflux. FLUIDS fluid intake has been improving and yesterday she took 2232 cc. Discussed with nursing - no problems that need addressed Reviewed the THERAPY notes Medication list reviewed. Objective Data Objective Data Vital Signs: Vital Signs Temp Pulse Resp BP Pulse Ox O2 Del Method 99.2 F H 76 16 120/63 95 Room Air 06/19/25 05:19 06/19/25 05:19 06/19/25 05:19 06/19/25 05:19 06/19/25 05:19 06/19/25 05:19 Oxygen Delivery Method Room Air Weight: 134 lb 6.711 oz Body Mass Index (BMI) 27.1 Intake & Output: Intake and Output for Last 24 Hours 06/17/25 06/18/25 06/19/25 23:59 23:59 23:59 Intake Total 1420 / 1420 2232 / 2382 400 / 400 Output Total 1000 / 1000 550 / 550 200 / 200 Balance 420 / 420 1682 / 1832 200 / 200 Lab / Micro Data 06/13/25 06:53 06/16/25 05:32 Assessment & Plan Assessment/Plan PLAN: Plan 1. Continue therapy 2. BMP and CBC today 3. Rectal exam performed and then she was given a milk of molasses enema. No bowel movements since the . Also given 150cc of MAg Citrate 4. updated dtr Marielle on all her medications and what they do. Also updated her on Kellie's progress. 5. Plan transfer to [facility] for residential on Sunday.
[2025-06-19 13:01] LABS: Hematocrit 33.7 % (37-47); Hemoglobin 11.0 g/dL (12.0-15.0); Immature Granulocytes Count 0.030 X10^3/uL (0.0-0.0); Mean Corp Hgb Conc 32.6 g/dL (32-36); Mean Corpuscular Volume 105.3 fL (81-99); Mean Platelet Vol. 8.8 fl (6.2-12.0); NRBC Flagged by Analyzer 0 % (0-5); Platelet Count 580 K/mm3 (150-450); RBC Distribution Width CV 14.4 % (11.6-14.6); RBC Distribution Width SD 55.6 fl (35.1-43.9); Red Blood Count 3.20 M/mm3 (4.2-5.4); White Blood Count 6.0 K/mm3 (4.4-11.0)
[2025-06-19 13:50] LABS: Anion Gap 9 (5-15); BUN 15 mg/dL (4-19); BUN/Creat Ratio 27.4 RATIO (10-20); Calcium,Total 8.9 mg/dL (7.6-11.0); Carbon Dioxide 24.0 mmol/L (21.0-32.0); Chloride 103 mmol/L (98-108); Estimated Creatinine Clearance 38.90 ml/min (50-250); Glucose 68 mg/dL (70-99); Potassium 4.3 mmol/L (3.3-5.1)
[2025-06-19] MEDS: Magnesium Citrate 300 ML 150 ML PO (14:10)
--- NOTE | 2025-06-19 15:02 | TREXTCAR_ITS ---
Diet Diet Order/Speech Therapy: INPATIENT Hospital Diet / Speech Therapy Order(s) 06/10/25 15:11 Diet: Regular - General Food consistency:: Regular Liquid Consistency:: Regular/Thin Type of Dietary Supplement:: Ensure Plus High Protein Diet Comments: Small protions, send sarah with breakfast for snack later in day high fiber. No Ensure plus.......family will bring in Muscle Milk supplement for her to use once daily instead. Routine Orders/Code Status Enema Type: Fleetz Enema Frequency: Daily PRN Suppository Type: Dulcolax 10mg Suppository Frequency: Daily PRN Routine Lab Work: - (CBC and BMP in 1 week. 25-hydroxy vitamin D level in 1 month) Code Status: Full Code DC O2, CPAP, BIPAP needs Home O2 Discharge instructions: No Wound(s) Rt hip: Wound Type: Surgical Incision (R hip) Therapies Weight Bearing: Full weight bearing Extremity Affected:: Right Lower Physical Therapy: Eval and Treat Occupational Therapy: Eval and Treat Problem/Diagnosis (1) Physical debility: Status: Acute Code(s): R53.81 - Other malaise Plan: Due to elective R total hip replacement. Will go to SNF from acute rehab. 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 Mic Mallory. She will follow- up with Dr. Mallory postdischarge from acute rehab. (3) Acute blood loss as cause of postoperative anemia: Status: Acute Code(s): D62 - Acute posthemorrhagic anemia Plan: Hemoglobin is 11 on 06/19/2025. Prior to surgery it was 13.9. 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 She was started on salt tablets 1 g p.o. twice daily for a sodium of 129 on 06/13/2025. Sodium on 06/19/2023 was 136 so the salt tablets were discontinued and she will have a follow-up BMP in 1 week. If hyponatremia reoccurs would restart salt tablets 1 g p.o. twice daily. She was not placed on fluid restriction because she generally drinks less than 1500 cc daily. (5) Muscle weakness-general: Status: Chronic Code(s): M62.81 - Muscle weakness (generalized) Comment: Generalized deconditioning likely related to patient's polyarticular arthritic changes limiting her activity. (6) Thrombocytosis: Status: Chronic Code(s): D75.839 - Thrombocytosis, unspecified Plan: When she came twice she was taking hydroxyurea 500 mg 6 days a week. Platelets on 06/19/2025 were high at 580,000 and the hydroxyurea was increased to daily 7 days a week. She will have a follow-up CBC in 1 week. Comment: On hydroxyurea (7) Vitamin D deficiency: Status: Chronic Code(s): E55.9 - Vitamin D deficiency, unspecified Plan: Continue cholecalciferol 50 mcg daily. She was previously taking 25 mcg daily but her vitamin D level on 03/10/2025 was only 32.4 so the dose has been increased to 50 mcg daily. Would recheck a vitamin D level in 6 weeks. (8) Rhinitis: Status: Chronic Code(s): J31.0 - Chronic rhinitis Plan: Patient complained of chronic postnasal drip and was taking Mucinex and ceftirizine for this. Ceftirizine is contraindicated in elderly people due to adverse side effects. Mucinex and ceftirizine were discontinued and she was started on Atrovent nasal spray. She has not complained of rhinorrhea, postnasal drip, cough or lightheadedness since she was started on the Atrovent nasal spray. (9) Bilateral cold feet: Status: Chronic Code(s): R20.9 - Unspecified disturbances of skin sensation Comment: Patient's cold feet and paresthesias appear to be multifactorial. I suspect that there is probably some degree of small vessel insufficiency particularly in the feet. There may also be some element of small fiber neuropathy as well. Hydroxyurea can also cause cold feet, blue feet, numb feet and some pain in the extremities. I would like to draw primary care physician's attention to hydroxyurea in this case. I noted on AI search that a feeling of cold feet and bluish hue to the feet is a known side effect of hydroxyurea. I will defer to primary care as to whether or not this is relevant in this particular case. Other than that I would suggest treating the patient symptomatically. This would include replacement of B vitamins as tolerated. I would also suggest that the patient try using a heating blanket or heating mattress pad since she is particularly cold at night. Modern devices can be used safely without danger of inducing a burn in a patient with decreased sensation in feet. I also suggested patient can give Salonpas with lidocaine and a trial on her feet. She is using Biofreeze on her feet with partial relief which wears off during the night. Cutting Salonpas with lidocaine and the strips and placing them on the foot may provide a more controlled and longer lasting relief. Patient cautioned to be certain that if she does get up at night that she be cautious that her feet are not numb. I would not want her to turn her ankle or trip with her feet feeling as if they are asleep. This note was generated by Dr. Hernandez from neurology. (10) Multiple thyroid nodules: Status: Acute Code(s): E04.2 - Nontoxic multinodular goiter Plan: She had fine-needle aspiration of 4 thyroid nodules and August 2023 and they were all negative for malignant cells. Findings were consistent with benign fo llicular/colloid nodules with cystic changes. She denies dysphagia. (11) Pancreatic cyst: Status: Chronic Code(s): K86.2 - Cyst of pancreas Plan: Continue to monitor. No further intervention. Comment: The cyst was aspirated using endoscopic ultrasound in July 2023 but, the fluid reaccumulated. She has had second opinions on what to do and the consensus is that she would not tolerate excision of the cyst and repeated aspirations will weaken the thin wall. She is also not a candidate for a stent to drain the cyst because the wall is very thin. (12) Hyperlipidemia: Status: Chronic Code(s): E78.5 - Hyperlipidemia, unspecified Plan: LDL in December 2022 was 63. She was not on a statin at that time and she has myalgias with atorvastatin. (13) Constipation: Status: Chronic Code(s): K59.00 - Constipation, unspecified Plan: She has a long history of constipation. At times she has had diarrhea so I suspect she has irritable bowel. She was supposed to be taking osmotic laxative but decided instead to take Dulcolax Gummies twice daily. She has become chronically dependent on laxatives. She was seen in consultation by Dr. Nagi Larios while in the hospital who recommended MiraLAX twice daily, Metamucil at bedtime and Dulcolax twice daily. (14) Laxative abuse: Status: Chronic Code(s): F55.2 - Abuse of laxatives (15) Delayed gastric emptying: Status: Chronic Code(s): K30 - Functional dyspepsia Plan: I suspect the size of the pancreatic cyst is obstructing outflow from the stomach following eating. She was experiencing nausea/vomiting/reflux and early satiety. She was started on Reglan 5 mg 3 times daily and her appetite and in take have improved significantly. She has not recently complained of nausea or emesis. She is also not having heartburn any longer. She will continue the Reglan and a PPI. During her hospital stay she required enemas and oral laxatives for an excessive stool burden noted on KUB at admission to rehab. Rectal exam on rehab revealed no fecal impaction and there was soft stool in the rectal vault. (16) External hemorrhoid: Status: Acute Code(s): K64.4 - Residual hemorrhoidal skin tags Plan: Anusol HC suppositories were ordered twice daily and will continue for 1 week postdischarge. (17) Chronic GERD: Status: Chronic Code(s): K21.9 - Gastro-esophageal reflux disease without esophagitis Plan: Continue famotidine 20 mg daily. Plan 1. Discharged to the [facility] at discharge 2. BMP and CBC in 1 week 3. Follow-up with Dr. Mallory for staple removal 4. Follow-up with Dr. Nathan Vanegas postdischarge from the [facility] Allergies/Procedures Done in Hospital Allergies ciprofloxacin (From Cipro) Allergy (Verified 06/08/25 11:59) Itching amoxicillin Adverse Reaction (Verified 06/08/25 11:59) Upset Stomach atorvastatin (From Lipitor) Adverse Reaction (Verified 06/08/25 11:59) myalgias clarithromycin (From Biaxin) Adverse Reaction (Verified 06/08/25 11:59) Vomiting thiopental (From Pentothal) Adverse Reaction (Verified 06/08/25 11:59) Nausea Procedures: - (Right total hip replacement on 06/08/[address] Mallory.) Type of Care/Length of Stay Estimated LOS: Convalescent Care Less Than 30 days Type of Care Needed: Skilled Rehab Potential: Good Prognosis: Fair Additional Orders/Day of Discharge H&P will serve as current which was dated: 06/11/25 Day of Discharge: 06/21/25 Dietary and Speech Recommendations Dietitian Recommendations/Changes: Continue current diet order per MD Erick PERRY the ensure........she won't drink it. OK to have Muscle Milk once a day to boost protein intake. Family will supply. Appetite is better with addition of Reglan to the drug regimen to aid in gastric emptying and help with early satiety/nausea and reflux. Follow Up Care Please follow up with your Primary Care Physician in: Following [facility] Please Follow Up With: Mic Mallory MD When: 06/22/25 at 2:15. Discharge Plan Admission Admit Date/Time: 06/10/25 14:40 Primary Reason for Your Visit: Debility secondary to right total hip replacement Attending Provider: Tawnya Hunter Primary Care Provider: Nathan Vanegas Consulting Providers: Atif Ndiaye; Nagi Larios; Laura Perez; Candace Guzman; Daly Clement Instructions Additional Instructions / Restrictions: 1. Do not stop laxatives. She has been using them for quite a long time and her colon is dependent on laxatives to move. She can follow up with Dr. Larios as an OP IF the current bowel regimen is not working adequately. 2. She has a very large pancreatic cyst that is obstructing the gastric outlet and causing delayed gastric emptying. She was started on Reglan 5 mg 3 times daily with meals and her appetite and food intake has improved. She was previously refusing meals and eating only 25 to 49% of other meals. She is now eating 50 to 100% of almost all her meals and she denies feeling bloated, being nauseated and vomiting and having heartburn. Small meals are preferable to lar maría meals. 3. The right hip pain is currently controlled with 50 mg of tramadol every 12 hours and she has not required any as needed medication for the past several days. Would keep her on scheduled tramadol twice daily for 3 to 5 days after discharge from acute rehab and then trying transition to as needed. 4. She takes hydroxyurea for thrombocytosis. Platelets on 06/19/2025 poor 580,000 which is elevated. The hydroxyurea was increased from 500 mg 6 days a week to 500 mg every day. Repeat CBC ordered in 1 week. 5. 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 At the time she was drinking less than 1500 cc a day, sometimes less than the thousand. She was placed on sodium chloride tablets 1 g p.o. twice daily and the sodium on 06/19/2025 was 136. The salt tablets were discontinued at discharge from rehab and she will have a follow-up BMP in 1 week. If the hyponatremia recurs would first limit fluid restriction to 1500 cc a day and if that is unsuccessful in keeping the sodium above 130 would reinstitute salt tablets. 6. She complained of postnasal drip and rhinitis at admission to rehab. She was taking Mucinex and ceftirizine. She was transition from these medications to Atrovent nasal spray and she has not complained of rhinitis, sore throat, postnasal drainage or lightheadedness since then. Urea can cause pharyngitis and rhinitis. Will continue Atrovent nasal spray. 7. Her lungs have been clear to auscultation the whole time she was on acute rehab and she has not needed an albuterol inhaler. She has also not needed M eclizine.........she has had no vertigo. 8. She has external hemorrhoids and is being treated with Anusol HC suppositories which she will continue for 1 week after discharge from rehab. They can be used as needed after that. Discharge Orders/Prescriptions Prescriptions: New betamethasone, augmented 0.05 % Cream 1 applic topical BID PRN PRN (Reason: vaginal pain/irritation) Qty: 1 0RF Rx Instructions: Use sparingly at vaginal introitus for no more than 3 days at a time bisacodyl 10 mg Suppository 10 mg WV Q72H PRN (Reason: no BM for 3 days) Qty: 1 0RF calcium carbonate 200 mg calcium (500 mg) Tablet,Chewable 500 mg PO BIDCM Qty: 1 0RF bisacodyl 5 mg Tablet,Delayed Release (Dr/Ec) 10 mg PO BID 1 Days Qty: 4 0RF cholecalciferol (vitamin D3) 25 mcg (1,000 unit) Tablet 50 mcg PO DAILY Qty: 1 0RF meclizine 12.5 mg Tablet 12.5 mg PO DAILY PRN PRN (Reason: vertigo) Qty: 1 0RF Rx Instructions: Do NOT use for lightheadedness - ONLY for VERTIGO hydrocortisone acetate 25 mg Suppository 25 mg [place] BID Qty: 14 0RF Rx Instructions: DC after 14 doses and use PRN thereafter ipratropium bromide 42 mcg (0.06 %) [place],Non-Aerosol 2 spray NASAL BID Qty: 1 0RF tramadol 50 mg Tablet 50 mg PO 0700,1900 7 Days Qty: 14 0RF metoclopramide HCl 5 mg Tablet 5 mg PO TIDAC Qty: 1 0RF ondansetron 4 mg Tablet,Disintegrating 4 mg PO Q8H PRN PRN (Reason: Nausea) Qty: 1 0RF Daily Fiber (psyllium-aspart) 3 gram Powder In Packet 1 packet PO QHS Qty: 1 0RF polyethylene glycol 3350 [Miralax] 17 gram/dose powder 17 g PO BID Qty: 119 0RF Continued albuterol sulfate [Ventolin HFA] 90 mcg/actuation HFA aerosol inhaler 1 puff INHALATION Q6H PRN (Reason: Sob &/Or Wheezing) cyanocobalamin (vitamin B-12) 1,000 mcg tablet 1,000 mcg PO DAILY famotidine 20 mg Tablet 20 mg PO DAILY aspirin 81 mg tablet 81 mg PO BIDCM Qty: 1 0RF Rx Instructions: on 07/06/24 she can cut back to 81 mg daily with food. zoledronic [id number] [Reclast] 5 mg/100 mL piggyback 1 ea .Route .Q2YEAR Qty: 100 0RF Rx Instructions: Every other year - Dr. Vanegas orders Changed acetaminophen 500 mg Tablet 1,000 mg PO Q8 PRN (Reason: pain/fever) Qty: 1 0RF Discontinued calcium phosphate-vitamin D3 [Citracal-D3 Gummies] 250 mg calcium- 500 unit tablet,chewable 1 tab PO DAILY fluticasone propionate [Flonase Allergy Relief] 50 mcg/actuation spray,suspension 1 spray INTRANASAL DAILY PRN (Reason: Allergies) hydroxyurea 500 mg capsule 500 mg PO MOTUWETHFRSA guaifenesin [Mucinex] 600 mg tablet extended release 12hr 600 mg PO BID cetirizine [Zyrtec] 10 mg tablet 10 mg PO DAILY PRN (Reason: ALLERGIES) meclizine [Antivert] 25 mg tablet,chewable 25 mg PO DAILY PRN PRN (Reason: dizziness) cholecalciferol (vitamin D3) [Vitamin D3] 25 mcg (1,000 unit) tablet 500 unit PO DAILY protein supplement Liquid 30 ml PO .QD Nutra Pro High Protein Powder 1 ea PO BID oxycodone 5 mg Tablet 5 - 10 mg PO Q4H PRN PRN (Reason: as needed for pain) 7 Days Qty: 36 0RF No Action Fiber Select Gummies 2-100 gram-mcg tablet,chewable 3 tab PO DAILY Patient Comments: 2 tabs in morning, 1 at dinner doxycycline monohydrate 100 mg Capsule 100 mg PO BID Referrals / Follow Up: Nathan Vanegas DO [Primary Care Provider, Family Practice] Mic Mallory MD [Med Staff - Active Staff, Orthopedics] - 06/22/25 2:15 pm Disposition Disposition (needs filled in before D/C Order can be placed): Nursing Home Facility (8) Rhinitis Qualifiers: Rhinitis type: chronic Qualified Code(s): J31.0 - Chronic rhinitis (12) Hyperlipidemia Qualifiers: Hyperlipidemia type: unspecified Qualified Code(s): E78.5 - Hyperlipidemia, unspecified (13) Constipation Qualifiers: Constipation type: unspecified constipation type Qualified Code(s): K59.00 - Constipation, unspecified
--- NOTE | 2025-06-19 16:26 | DS.PCM_ITS ---
Providers Date of Admission: 06/10/25 Date of Discharge: 06/19/25 Primary Care Physician: Dr. Nathan Vanegas, DO Consultations 06/15/25 11:46 Consult: Gastroenterology Routine Consulting Provider: [facility] Reason for Consult: large pancreatic cyst/chronic laxative abuse with constipation EMERGENT Consult: No MD Notified: Yes Date Notified: 06/15/25 Time Notified: 11:47 Method of Notification: Text Reason For Visit: TOTAL RIGHT HIP REVISION Diagnosis Discharge Diagnosis (1) Physical debility: Status: Acute Code(s): R53.81 - Other malaise Plan: Due to elective R total hip replacement. Will go to SNF from acute rehab. 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 Mic Mallory. She will follow- up with Dr. Mallory postdischarge from acute rehab. (3) Acute blood loss as cause of postoperative anemia: Status: Acute Code(s): D62 - Acute posthemorrhagic anemia Plan: Hemoglobin is 11 on 06/19/2025. Prior to surgery it was 13.9. 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 She was started on salt tablets 1 g p.o. twice daily for a sodium of 129 on 06/13/2025. Sodium on 06/19/2023 was 136 so the salt tablets were discontinued and she will have a follow-up BMP in 1 week. If hyponatremia reoccurs would restart salt tablets 1 g p.o. twice daily. She was not placed on fluid restriction because she generally drinks less than 1500 cc daily. (5) Muscle weakness-general: Status: Chronic Code(s): M62.81 - Muscle weakness (generalized) (6) Thrombocytosis: Status: Chronic Code(s): D75.839 - Thrombocytosis, unspecified Plan: When she came twice she was taking hydroxyurea 500 mg 6 days a week. Platelets on 06/19/2025 were high at 580,000 and the hydroxyurea was increased to daily 7 days a week. She will have a follow-up CBC in 1 week. (7) Vitamin D deficiency: Status: Chronic Code(s): E55.9 - Vitamin D deficiency, unspecified Plan: Continue cholecalciferol 50 mcg daily. She was previously taking 25 mcg daily but her vitamin D level on 03/10/2025 was only 32.4 so the dose has been increased to 50 mcg daily. Would recheck a vitamin D level in 6 weeks. (8) Rhinitis: Status: Chronic Code(s): J31.0 - Chronic rhinitis Qualifiers: Rhinitis type: chronic Qualified Code(s): J31.0 - Chronic rhinitis Plan: Patient complained of chronic postnasal drip and was taking Mucinex and ceftirizine for this. Ceftirizine is contraindicated in elderly people due to adverse side effects. Mucinex and ceftirizine were discontinued and she was started on Atrovent nasal spray. She has not complained of rhinorrhea, postnasal drip, cough or lightheadedness since she was started on the Atrovent nasal spray. (9) Bilateral cold feet: Status: Chronic Code(s): R20.9 - Unspecified disturbances of skin sensation (10) Multiple thyroid nodules: Status: Acute Code(s): E04.2 - Nontoxic multinodular goiter Plan: She had fine-needle aspiration of 4 thyroid nodules and August 2023 and they were all negative for malignant cells. Findings were consistent with benign follicular/colloid nodules with cystic changes. She denies dysphagia. (11) Pancreatic cyst: Status: Chronic Code(s): K86.2 - Cyst of pancreas Plan: Continue to monitor. No further intervention. (12) Hyperlipidemia: Status: Chronic Code(s): E78.5 - Hyperlipidemia, unspecified Qualifiers: Hyperlipidemia type: unspecified Qualified Code(s): E78.5 - Hyperlipidemia, unspecified Plan: LDL in December 2022 was 63. She was not on a statin at that time and she has myalgias with atorvastatin. (13) Constipation: Status: Chronic Code(s): K59.00 - Constipation, unspecified Qualifiers: Constipation type: unspecified constipation type Qualified Code(s): K 59.00 - Constipation, unspecified Plan: She has a long history of constipation. At times she has had diarrhea so I suspect she has irritable bowel. She was supposed to be taking osmotic laxative but decided instead to take Dulcolax Gummies twice daily. She has become chronically dependent on laxatives. She was seen in consultation by Dr. Nagi Larios while in the hospital who recommended MiraLAX twice daily, Metamucil at bedtime and Dulcolax twice daily. (14) Laxative abuse: Status: Chronic Code(s): F55.2 - Abuse of laxatives (15) Delayed gastric emptying: Status: Chronic Code(s): K30 - Functional dyspepsia Plan: I suspect the size of the pancreatic cyst is obstructing outflow from the stomach following eating. She was experiencing nausea/vomiting/reflux and early satiety. She was started on Reglan 5 mg 3 times daily and her appetite and intake have improved significantly. She has not recently complained of nausea or emesis. She is also not having heartburn any longer. She will continue the Reglan and a PPI. During her hospital stay she required enemas and oral laxatives for an excessive stool burden noted on KUB at admission to rehab. Rectal exam on rehab revealed no fecal impaction and there was soft stool in the rectal vault. (16) External hemorrhoid: Status: Acute Code(s): K64.4 - Residual hemorrhoidal skin tags Plan: Anusol HC suppositories were ordered twice daily and will continue for 1 week postdischarge. (17) Chronic GERD: Status: Chronic Code(s): K21.9 - Gastro-esophageal reflux disease without esophagitis Plan: Continue famotidine 20 mg daily. Plan 1. Discharged to the [facility] at discharge 2. BMP and CBC in 1 week. 25 Hydroxy vitamin D level in 1 month.......goal is to keep it between 50-80 3. Follow-up with Dr. Mallory for staple removal 4. Follow-up with Dr. Nathan Vanegas postdischarge from the [facility] Medications at Discharge Home Medications albuterol sulfate 90 mcg/actuation aerosol inhaler (Ventolin HFA) 1 puff inhalation Q6H PRN Sob &/Or Wheezing 02/26/18 cyanocobalamin (vitamin B-12) 1,000 mcg tablet 1,000 mcg PO DAILY SUPPLEMENT 07/20/23 inulin-chromium picolinate 2 gram-100 mcg chewable tablet (Fiber Select Gummies) 3 tab PO DAILY SUPPLEMENT 07/20/23 Held on 06/10/25. Instructions: Ordered doxycycline monohydrate 100 mg capsule 100 mg PO BID ATB 06/10/25 famotidine 20 mg tablet 20 mg PO DAILY stomach 06/10/25 acetaminophen 500 mg tablet 1,000 mg (2 x 500 mg) PO Q8 PRN pain/fever #1 TAB 06/19/25 aspirin 81 mg tablet 81 mg PO BIDCM DVT prophylaxis #1 TAB 06/19/25 betamethasone, augmented 0.05 % topical cream 1 applic topical BID PRN PRN vaginal pain/irritation #1 g 06/19/25 bisacodyl 10 mg rectal suppository 10 mg ND Q72H PRN no BM for 3 days #1 ea 06/19/25 bisacodyl 5 mg tablet,delayed release 10 mg (2 x 5 mg) PO BID 1 day #4 tabs 06/19/25 calcium carbonate 500 mg (2.5 x 200 mg calcium (500 mg)) PO BIDCM #1 TAB 06/19/25 cholecalciferol (vitamin D3) 25 mcg (1,000 unit) tablet 50 mcg (2 x 25 mcg (1,000 unit)) PO DAILY #1 TAB 06/19/25 hydrocortisone acetate 25 mg rectal suppository 25 mg ND BID #14 ea 06/19/25 ipratropium bromide 42 mcg (0.06 %) nasal spray 2 spray NASAL BID #1 BOTTLE 06/19/25 meclizine 12.5 mg tablet 12.5 mg PO DAILY PRN PRN vertigo #1 TAB 06/19/25 metoclopramide HCl 5 mg tablet 5 mg PO TIDAC #1 TAB 06/19/25 ondansetron 4 mg disintegrating tablet 4 mg PO Q8H PRN PRN Nausea #1 TAB 06/19/25 polyethylene glycol 3350 17 gram/dose oral powder (Miralax) 17 g PO BID #119 grams 06/19/25 psyllium husk 3 gram oral powder packet (Daily Fiber (psyllium-aspartame)) 1 packet PO QHS #1 ea 06/19/25 tramadol 50 mg tablet 50 mg PO 0700,1900 pain 1 week #14 tabs 06/19/25 zoledronic acid 5 mg/100 mL in mannitol 5 %-water intravenous piggybck (Reclast) 1 ea .Route .Q2YEAR BONE #100 mL 06/19/25 Hospital Course Operations total hip replacement (06/08/[address] Mallory-right hip) Procedures None Summary of Care Provided Minutes Spent on Discharge: 50 Hospital Course: LEW HUDSON, is a 89-year-old F with a past medical history of thrombophilia (on hydroxyurea), GERD, benign pancreatic cyst (this has been drained on 07/25/2024 with endoscopic ultrasound for aspiration of the cyst), osteoporosis (getting Reclast every [address] Vanegas), hyperlipidemia (not on a statin....last LDL on record is from 12/2022 and it was 63 on no medication for cholesterol), intolerance of statins due to myalgia, multiple thyroid nodules (4 nodes biopsied in August of 2023 and all were negative), pulmonary nodule, osteoarthritis, chronic constipation (laxative abuse/dependence)), vitamin D deficiency, chronic rhinitis/postnasal drainage (on Mucinex/Flonase and ceftirizine and still symptomatic), vaginal lichen sclerosis and stage I diastolic dysfunction who was admitted to [facility] on 06/08/2025 for an elective total right hip arthroplasty by Dr. Mic Mallory. Postoperative labs on 06/09/2025 showed a hemoglobin of 11.2 which is down from 13.9 on 05/21/2025. There were no significant postoperative complications. She was transferred to the acute inpatient rehab unit at [facility] on 06/10/2025 for 3 hours of therapy daily to restore function/independence at or near her level prior to the recent right total hip arthroplasty. She lives by herself. She uses a wheeled walker for ambulation. Previously independent with all ADLs. She no longer drives. Lew was seen Dr. Castelan from neurology in the past year for complaints of cold feet with numbness. She has had normal vascular studies in the past couple years and she had EMG and nerve conduction studies performed in May 2024 that did not demonstrate the presence of a neuropathy. Dr. Castelan told Lew that patients treated with urea can have cold feet, blue feet and limb pain. They can also have small fiber neuropathy not detected on EMG/NCV studies. Last DEXA was 2023 and showed a forearm T-score of -3.7. The vertebral T-score was -1.8. She tells me she gets Reclast every other year and a DEXA every other year and Dr. Vanegas orders these. At presentation to rehab Lew complained of rhinitis, post nasal drainage and some cough. She was taking Mucinex, Flonase and ceftirizine for this. Despite taking 3 different medications she continued to have rhinitis. Rhinitis can be a side effect of urea. Mucinex Flonase and ceftirizine were all discontinued and she was started on Atrovent nasal spray 2 sprays each nostril twice daily. Her symptoms completely resolved and she requested a RX at [facility]. She had abdominal distension, tympany and decreased BS's at admission to rehab. She also had reflux/heartburn, N/V and early satiety. A KUB was obtained and showed a very large amount of stool in the colon. She was ordered MiraLAX twice daily, senna/docusate twice daily and was given laxatives and an enema. She had a couple BM's and then was constipated again. Dr. Larios from GI was consulted and he ordered Miralx BID, Metamucil at bedtime and Dulcolax twice a day. A repeat KUB on 06/15/25 showed some improvement in the fecal burden but, it still showed a moderate amount of stool in the colon. Mag Citrate and a soap suds enema were given with good results. Rectal exam revealed soft brown stool in the rectum with no impaction. She had external hemorrhoids and Anusol HC suppositories were ordered twice daily. Oral food and fluid intake was poor at admission to rehab. the pancreatic cyst is large and is obstructing gastric outflow. she was started on 5 mg of Reglan AC and HS and she started to eat better and task more fluid. N/V/heartburn resolved. At the time of DC from rehab she is eating 50-100% of her meals. sodium was down to 129 while on rehab. 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 Her fluid intake had been poor so I did not need to restrict fluids. She was started on sodium chloride tablets 1 gm p.o. twice daily and follow-up labs were checked. On 06/19/2025 her sodium was 136. Salt tablets were discontinued on that day and she will have a BMP in 1 week following transfer to the [facility]. She has a long history of thrombocytosis and has been on hydroxyurea. At presentation to rehab she was taking 500 mg 6 days a week. Platelets on 06/19/2025 and increased to 580,000 and the dose of urea was increased to 500 mg every day. She will have a follow-up CBC in 1 week. She had been taking Viactiv chews for calcium supplementation. Her vitamin D level in March 2025 was low at 32. She has known osteoporosis. She was placed on cholecalciferol 50 mcg daily and should have a repeat vitamin D level in 1 month. Recommend that we keep the vitamin D level between 50 and 80 because of her history of osteoporosis and need for Reclast. Lew did quite well on rehab. She would not take the Oxycodone because of nausea and it made her feel funny. Oxycodone was discontinued and she was placed on Tramadol 50 mg Q8H. Vicodin (has tolerated in the past) was ordered PRN but, she never had to take a Vicodin. the Tramadol was weaned down to Q12H and her pain remained adequately controlled. She will continue Tramadol 50 mg Q 12 hours at [facility] and in 3-5 days after transfer would make the Tramadol q 8H PRN. We have been using a compounded arthritis cream containing lidocaine, Voltaren and baclofen on the right anterior thigh and this has helped considerably to control her pain. She requested a prescription at discharge. At the time of discharge from rehab she is ambulating up to 120 feet with a front wheel walker and standby assist with a wheelchair follow. Her goal is to ambulate 225 feet with a front wheeled walker at mod I on various surfaces. She can go from sitting to standing at contact-guard assist and she can stand pivot with a front wheeled walker at contact-guard assist/standby assist. She is able to do 10 sit to stands in 30 seconds using her upper extremities to rise. She is using a front wheel walker to come to a modified curb step of 2 inches at contact-guard assist. She is independent with eating and supervision/set up for grooming. She requires minimal assistance with bathing and lower body dressing. She is supervision/set up for upper body dressing. She is standby assist for toilet transfer and contact-guard assist for toileting. She is standby assist for tub/shower transfer. Lew was discharged to care home at the [facility] on 06/21/2025 for continued occupational therapy and physical therapy so that she may return home at some point. She lives alone and will need to be independent with ADLs prior to discharge from care home. She has a follow-up appointment scheduled with Dr. Mallory on 06/22/2025 at 2:15 PM to remove jaci. She will follow-up with Dr. Nathan Vanegas following discharge from care home. Physical Exam Const alert, oriented x3 and no apparent distress Constitutional Narrative: Sitting in the recliner at the bedside with her legs elevated. She denies pain. General Appearance: cooperative HEENT normocephalic, head/scalp atraumatic, hearing grossly normal bilaterally and moist oral mucous membranes Eyes PERRL, EOMs intact bilaterally, conjunctivae normal and no scleral icterus Neck supple and no JVD Chest Chest: symmetrical chest wall rise Resp normal respiratory effort, normal air movement and clear to auscultation bilaterally Effort and Inspection: able to speak in complete sentences Cardio regular rate, regular rhythm, no rub and no gallops Cardio Narrative: No ectopy. She has a soft grade 1/6 systolic ejection murmur heard at the second right intercostal space with no radiation.. GI GI Narrative: The abdomen is still mildly distended and tympanic but much softer than it was at admission. She has active bowel sounds in all 4 quadrants today. She had no guarding with palpation. She denied nausea and heartburn. Appetite and food intake have been much better since Reglan was started. Rectal exam revealed external hemorrhoids. She had good sphincter tone. There was a small amount of soft brown stool in the rectal vault with no impaction. There were no masses appreciated. no CVA tenderness Narrative: Denies dysuria. Back/Spine straight leg raise negative bilaterally Back/Spine Narrative: She has kyphosis. Extremity Extremity Narrative: She has mild ankle edema on the right. No calf tenderness. The incision is intact and jaci are in place there is no dehiscence of the wound. She had some serous drainage but this is much improved. There is still swelling in the anni-incisional area. There is some patchy redness around the jaci which I think is just tissue reaction to the jaci. This has not increased over the past couple days. There is no significant increased warmth to touch and there is no purulent discharge. She has been afebrile. White blood cell count on 06/19/2025 was normal. Skin General Skin Exam: no breakdown Neuro CN's II-XII intact bilaterally, moves all extremities and no focal motor deficits Neuro Narrative: She complains of paresthesias in both legs. Psych mental status grossly normal, thought process normal, cooperative, affect normal and denies suicidal ideation Appearance: appropriate and well kempt Attitude: calm Activity / Motor Behavior: appropriate eye contact Weight / BMI Weight Weight: 134 lb 6.711 oz Body Mass Index (BMI) 27.1 ABG / Lab / Microbiology Data 06/19/25 11:04 06/19/25 11:04 Laboratory: Laboratory Results - last 24 hr 06/19/25 11:04: WBC 6.0, RBC 3.20 L, Hgb 11.0 L, Hct 33.7 L, MCV 105.3 H, MCH 34.4 H, MCHC 32.6, RDW Std Deviation 55.6 H, RDW Coeff of Cyril 14.4, Plt Count 580 H, MPV 8.8, Immature Gran % (Auto) 0.500, Neut % (Auto) 65.8, Lymph % (Auto) 15.8 L, [place] % (Auto) 15.1 H, Eos % (Auto) 2.3, Baso % (Auto) 0.5, Absolute Neuts (auto) 4.0, Absolute Lymphs (auto) 0.95, Nucleated RBC % 0, Sodium 136, Potassium 4.3, Chloride 103, Carbon Dioxide 24.0, Anion Gap 9, BUN 15, C reatinine 0.54 L, Estim Creat Clear Calc 38.90 L, Est GFR (MDRD) Non-Af 88, B UN/Creatinine Ratio 27.4 H, Glucose 68 L, Calcium 8.9 D/C Instructions DC O2, CPAP, BIPAP Needs Home O2 Discharge instructions: No Please Follow Up With: Mic Mallory MD Meaningful Use Info Meaningful Use Meaningful Use Diagnoses (Choose all that apply): None applicable Discharge Plan Admission Admit Date/Time: 06/10/25 14:40 Primary Reason for Your Visit: Debility secondary to right total hip replacement Attending Provider: Tawnya Hunter Primary Care Provider: Nathan Vanegas Consulting Providers: Atif Ndiaye; Nagi Larios; Laura Perez; Candace Guzman; Daly Clement Instructions Additional Instructions / Restrictions: 1. Do not stop laxatives. She has been using them for quite a long time and her colon is dependent on laxatives to move. She can follow up with Dr. Larios as an OP IF the current bowel regimen is not working adequately. 2. She has a very large pancreatic cyst that is obstructing the gastric outlet and causing delayed gastric emptying. She was started on Reglan 5 mg 3 times daily with meals and her appetite and food intake has improved. She was previously refusing meals and eating only 25 to 49% of other meals. She is now eating 50 to 100% of almost all her meals and she denies feeling bloated, being nauseated and vomiting and having heartburn. Small meals are preferable to larger meals. 3. The right hip pain is currently controlled with 50 mg of tramadol every 12 hours and she has not required any as needed medication for the past several days. Would keep her on scheduled tramadol twice daily for 3 to 5 days after discharge from acute rehab and then trying transition to as needed. 4. She takes hydroxyurea for thrombocytosis. Platelets on 06/19/2025 poor 580,000 which is elevated. The hydroxyurea was increased from 500 mg 6 days a week to 500 mg every day. Repeat CBC ordered in 1 week. 5. 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 At the time she was drinking less than 1500 cc a day, sometimes less than the thousand. She was placed on sodium chloride tablets 1 g p.o. twice daily and the sodium on 06/19/2025 was 136. The salt tablets were discontinued at discharge from rehab and she will have a follow-up BMP in 1 week. If the hyponatremia recurs would first limit fluid restriction to 1500 cc a day and if that is unsuccessful in keeping the sodium above 130 would reinstitute salt tablets. 6. She complained of postnasal drip and rhinitis at admission to rehab. She was taking Mucinex and ceftirizine. She was transition from these medications to Atrovent nasal spray and she has not complained of rhinitis, sore throat, postnasal drainage or lightheadedness since then. Urea can cause pharyngitis and rhinitis. Will continue Atrovent nasal spray. 7. Her lungs have been clear to auscultation the whole time she was on acute rehab and she has not needed an albuterol inhaler. She has also not needed Meclizine.........she has had no vertigo. 8. She has external hemorrhoids and is being treated with Anusol HC suppositories which she will continue for 1 week after discharge from rehab. They can be used as needed after that. Discharge Orders/Prescriptions Prescriptions: New betamethasone, augmented 0.05 % Cream 1 applic topical BID PRN PRN (Reason: vaginal pain/irritation) Qty: 1 0RF Rx Instructions: Use sparingly at vaginal introitus for no more than 3 days at a time bisacodyl 10 mg Suppository 10 mg ND Q72H PRN (Reason: no BM for 3 days) Qty: 1 0RF calcium carbonate 200 mg calcium (500 mg) Tablet,Chewable 500 mg PO BIDCM Qty: 1 0RF bisacodyl 5 mg Tablet,Delayed Release (Dr/Ec) 10 mg PO BID 1 Days Qty: 4 0RF cholecalciferol (vitamin D3) 25 mcg (1,000 unit) Tablet 50 mcg PO DAILY Qty: 1 0RF meclizine 12.5 mg Tablet 12.5 mg PO DAILY PRN PRN (Reason: vertigo) Qty: 1 0RF Rx Instructions: Do NOT use for lightheadedness - ONLY for VERTIGO hydrocortisone acetate 25 mg Suppository 25 mg ND BID Qty: 14 0RF Rx Instructions: DC after 14 doses and use PRN thereafter ipratropium bromide 42 mcg (0.06 %) [place],Non-Aerosol 2 spray NASAL BID Qty: 1 0RF tramadol 50 mg Tablet 50 mg PO 0700,1900 7 Days Qty: 14 0RF metoclopramide HCl 5 mg Tablet 5 mg PO TIDAC Qty: 1 0RF ondansetron 4 mg Tablet,Disintegrating 4 mg PO Q8H PRN PRN (Reason: Nausea) Qty: 1 0RF Daily Fiber (psyllium-aspart) 3 gram Powder In Packet 1 packet PO QHS Qty: 1 0RF polyethylene glycol 3350 [Miralax] 17 gram/dose powder 17 g PO BID Qty: 119 0RF Continued albuterol sulfate [Ventolin HFA] 90 mcg/actuation HFA aerosol inhaler 1 puff INHALATION Q6H PRN (Reason: Sob &/Or Wheezing) cyanocobalamin (vitamin B-12) 1,000 mcg tablet 1,000 mcg PO DAILY famotidine 20 mg Tablet 20 mg PO DAILY aspirin 81 mg tablet 81 mg PO BIDCM Qty: 1 0RF Rx Instructions: on 07/06/24 she can cut back to 81 mg daily with food. zoledronic [id number] [Reclast] 5 mg/100 mL piggyback 1 ea .Route .Q2YEAR Qty: 100 0RF Rx Instructions: Every other year - Dr. Vanegas orders Changed acetaminophen 500 mg Tablet 1,000 mg PO Q8 PRN (Reason: pain/fever) Qty: 1 0RF Discontinued calcium phosphate-vitamin D3 [Citracal-D3 Gummies] 250 mg calcium- 500 unit tablet,chewable 1 tab PO DAILY fluticasone propionate [Flonase Allergy Relief] 50 mcg/actuation spray,suspension 1 spray INTRANASAL DAILY PRN (Reason: Allergies) hydroxyurea 500 mg capsule 500 mg PO MOTUWETHFRSA guaifenesin [Mucinex] 600 mg tablet extended release 12hr 600 mg PO BID cetirizine [Zyrtec] 10 mg tablet 10 mg PO DAILY PRN (Reason: ALLERGIES) meclizine [Antivert] 25 mg tablet,chewable 25 mg PO DAILY PRN PRN (Reason: dizziness) cholecalciferol (vitamin D3) [Vitamin D3] 25 mcg (1,000 unit) tablet 500 unit PO DAILY protein supplement Liquid 30 ml PO .QD Nutra Pro High Protein Powder 1 ea PO BID oxycodone 5 mg Tablet 5 - 10 mg PO Q4H PRN PRN (Reason: as needed for pain) 7 Days Qty: 36 0RF No Action Fiber Select Gummies 2-100 gram-mcg tablet,chewable 3 tab PO DAILY Patient Comments: 2 tabs in morning, 1 at dinner doxycycline monohydrate 100 mg Capsule 100 mg PO BID Referrals / Follow Up: Nathan Vanegas DO [Primary Care Provider, Family Practice] Mic Mallory MD [Med Staff - Active Staff, Orthopedics] - 06/22/25 2:15 pm Disposition Disposition (needs filled in before D/C Order can be placed): Group Home Facility Charges/Coding Visit Charges Inpatient E&M: 90710 Disch Hosp >30min
[2025-06-19 18:00] VITALS: BP 127/56; PULSE 84; RESP 16; TEMP 36.9; O2SAT 98
[2025-06-19] MEDS: Psyllium 1 PACKET PO (22:16)
--- NOTE | 2025-06-20 03:10 | NURSING ---
Pt states she has a sour stomach. Requested vanilla pudding. Pt ate this with good results.
[2025-06-20 05:03] VITALS: BP 117/53; PULSE 73; RESP 16; TEMP 37.1; O2SAT 95
[2025-06-20] MEDS: Arthritis Pain Compound 60 CLICK TUBE TOPICAL ×2 (05:38→21:37)
[2025-06-20] MEDS: Cholecalciferol (VIT D3) 25 MCG TABLET (1,000 UNITS) 50 MCG PO (08:07)
[2025-06-20] MEDS: Polyethylene Glycol 3350 17 GM PACKET PO ×2 (08:07→21:40)
[2025-06-20] MEDS: Aspirin E.C. 81 MG Tablet PO ×2 (08:08→16:45)
[2025-06-20 16:19] VITALS: BP 113/49; PULSE 78; RESP 16; TEMP 37.1; O2SAT 96
[2025-06-20] MEDS: Psyllium 1 PACKET PO (21:39)
--- NOTE | 2025-06-20 23:48 | NURSING ---
pt had extra fluids today because she requested ice cream at bed time to go with her cake.
[2025-06-21 06:00] VITALS: BP 134/61; PULSE 70; RESP 18; TEMP 37.1; O2SAT 95
[2025-06-21] MEDS: Arthritis Pain Compound 60 CLICK TUBE TOPICAL (06:25)
[2025-06-21] MEDS: Polyethylene Glycol 3350 17 GM PACKET PO (08:07)
[2025-06-21] MEDS: Aspirin E.C. 81 MG Tablet PO (08:09)
[2025-06-21] MEDS: Cholecalciferol (VIT D3) 25 MCG TABLET (1,000 UNITS) 50 MCG PO (08:09)
--- NOTE | 2025-06-21 14:20 | NURSING ---
Discharged to [address] with daughter via private car.
== END 2025-06-21 14:23 | disposition skilled nursing facility (03) | DRG 560 ==
PROVIDERS: Nurse Practitioner Family; Admitting Provider Internal Medicine; PCP Family Medicine; Visit Provider Internal Medicine
DX: Z47.1 Aftercare following joint replacement surgery (principal); E87.1 Hypo-osmolality and hyponatremia; K86.2 Cyst of pancreas; D62 Acute posthemorrhagic anemia; D68.59 Other primary thrombophilia; K86.3 Pseudocyst of pancreas; I27.21 Secondary pulmonary arterial hypertension; E04.2 Nontoxic multinodular goiter; M19.90 Unspecified osteoarthritis, unspecified site; K64.4 Residual hemorrhoidal skin tags; J31.0 Chronic rhinitis; K59.09 Other constipation; K21.9 Gastro-esophageal reflux disease without esophagitis; F55.2 Abuse of laxatives; E55.9 Vitamin D deficiency, unspecified; E78.5 Hyperlipidemia, unspecified; Z79.82 Long term (current) use of aspirin; M62.81 Muscle weakness (generalized); Z79.899 Other long term (current) drug therapy; M81.0 Age-related osteoporosis without current pathological fracture; Z96.641 Presence of right artificial hip joint
CPT/HCPCS: 36415; 74018; 80048; 80053; 83735; 83930; 83935; 84100; 84300; 85014; 85018; 85025; 94668; 97110; 97116; 97162; 97166; 97530; 97535; 97802; A4216